=== PATIENT | male | born 1950 ===

== ENCOUNTER 2021-09-14 09:59 | Outpatient (REF) | payer MEDICARE, SELFPAY ==
[2021-09-14 10:26] LABS: MANUAL DIFF FLAG NO
[2021-09-14 10:37] LABS: Basophils Percent Auto 0.4 % (0-2); Eosinophils Absolute Auto 0.3 X10*3/uL (0.0-0.4); Eosinophils Percent Auto 3.5 % (0-4); Hematocrit 41.3 % (42.0-52.0); Hemoglobin 13.5 g/dl (14.0-18.0); Imm Gran Abs Auto 0.03 X10*3/uL (0.00-0.03); Imm Gran Pct Auto 0.3 % (0.0-0.4); Lymphocytes Percent Auto 31.8 % (20-40); Mean Corpuscular HGB Conc 32.7 g/dl (31.0-36.0); Mean Corpuscular Hemoglobin 29.5 pg (27.0-33.0); Mean Corpuscular Volume 90.2 fL (80.0-98.0); Mean Platelet Volume 9.8 fL (9.4-12.4); Monocytes Absolute Auto 0.8 X10*3/uL (0.1-1.2); Monocytes Percent Auto 8.4 % (2-11); Neutrophils Absolute Auto 5.2 x10*3/uL (2.0-8.3); Neutrophils Percent Auto 55.6 % (45-73); Platelet Count 275 X10*3/uL (160-400); Red Blood Count 4.58 X10*6/uL (4.60-5.80); White Blood Count 9.4 X10*3/uL (4.8-10.8)
[2021-09-14 11:43] LABS: Alanine Aminotransferase 21 U/L (0-40); Albumin Level 4.1 g/dL (3.5-5.0); Alkaline Phosphatase 92 U/L (39-117); Anion Gap 12 (12-20); Aspartate Amino Transferase 23 U/L (5-37); Bilirubin Total 0.4 mg/dL (0.0-1.0); Blood Urea Nitrogen 9 mg/dL (9-16); Calcium 9.5 mg/dL (8.4-10.2); Carbon Dioxide 32 mmol/L (22-29); Chloride 102 mmol/L (96-108); Estimated Glomerular Filt Rate > 60; Glucose Fasting 77 mg/dL (60-99); Potassium 3.7 mmol/L (3.3-5.1); Sodium 142 mmol/L (135-145); Total Protein 6.7 g/dL (6.5-8.0)
[2021-09-14 12:09] LABS: Prostate Specific Antigen Scr 7.21 ng/mL (<0.05-4.0)
[2021-09-19 14:22] LABS: Vitamin D 25-OH, D2 <4 ng/mL; Vitamin D 25-OH, D3 38 ng/mL; Vitamin D 25-OH, Total 38 ng/mL (30-100)
== END 2021-09-14 10:00 | disposition home or self-care (01) ==
LOC: HO.LAB 09:59
PROVIDERS: Absent Provider Internal Medicine; PCP Internal Medicine; Visit Provider Nurse Practitioner Acute Care
DX: Z12.5 Encounter for screening for malignant neoplasm of prostate (principal); N40.0 Benign prostatic hyperplasia without lower urinary tract symptoms; K21.9 Gastro-esophageal reflux disease without esophagitis; E55.9 Vitamin D deficiency, unspecified
CPT/HCPCS: 36415; 80053; 82306; 84153; 85025

== ENCOUNTER 2022-09-04 04:58 | Emergency (ER) | payer MEDICARE, SELFPAY ==
[2022-09-04] VITALS (13 sets, daily range): BP systolic 147–187; BP diastolic 80–106; PULSE 76–108; RESP 15–24; TEMP 36.6–37; O2SAT 94–98; BMI 23.1
--- NOTE | ~2022-09-04 | CT_ITS ---
EXAMINATION: NONCONTRAST HEAD CT NONCONTRAST CERVICAL SPINE CT INDICATION INFORMATION: EtOH. Multiple falls. COMPARISON: 02/29/2020 TECHNIQUE: Separate noncontrast CT examinations of the head and cervical spine were performed. Coronal and sagittal images were created for each examination at the technologist workstation. This CT examination was performed using dose optimization techniques as appropriate, variously including the following: *Automated exposure control *Adjustment of mA and/or kV according to patient size (this includes techniques or standardized protocols for targeted exams where dose is matched to indication/reason for exam; i.e. extremities or head) *Use of iterative reconstruction technique DLP: 1183 mGy-cm FINDINGS: Head: There is no evidence of acute intracranial hemorrhage or territorial infarction. No abnormal mass effect or midline shift is seen. Kumari to white matter differentiation is well preserved. No extra-axial fluid collections are identified. No hydrocephalus. Proportional prominence of the ventricles and sulcal spaces is consistent with mild volume loss. Patchy periventricular and deep white matter hypoattenuation is consistent with mild small vessel ischemic changes. No acute osseous or soft tissue abnormality. The mastoid air cells and visualized portions of the paranasal sinuses are well aerated. Cervical spine: Sclerotic appearance throughout the vertebral bodies. This is unchanged There is anatomic alignment of the vertebral bodies and posterior elements. The atlantoaxial and atlantooccipital articulations are intact. Vertebral body heights are maintained. There is multilevel intervertebral disc space narrowing with endplate osteophyte formation and facet arthropathy. No evidence of acute fracture. No prevertebral soft tissue swelling. Visualized portions of the lung apices are unremarkable. The thyroid gland is unremarkable. CT/CT cervical spine wo IV con IMPRESSION: 1. No acute intracranial finding. 2. No acute fracture or malalignment of the cervical spine. Moderate degenerative changes.
--- NOTE | 2022-09-04 05:21 | PC.NURSE ---
Pt aox3. Breaths even and unlabored. NSR on monitor. Abd soft and non tender. Skin warm, pink, and dry. No swelling or edema noted. Reports no pain at this time. VSS. Will continue to monitor.
--- NOTE | 2022-09-04 05:41 | ECG_ITS ---
Test Reason : FAIL TO THRIVE Blood Pressure : / mmHG Vent. Rate : 082 BPM Atrial Rate : 082 BPM P-R Int : 162 ms QRS Dur : 096 ms QT Int : 382 ms P-R-T Axes : 059 -06 026 degrees QTc Int : 446 ms Normal sinus rhythm ST & T wave abnormality, consider anterior ischemia Abnormal ECG When compared with ECG of 13-NOV-2019 12:26, T wave inversion now evident in Anterior leads Referred By: Addie Llamas Electronically Signed By:JUANI FISCHER MD
--- NOTE | 2022-09-04 05:46 | ED_ITS ---
HPI - General Adult General Chief complaint: Failure to Thrive Stated complaint: ETOH,Failure To Thrive Time Seen by Provider: 09/04/22 05:32 Source: patient Mode of arrival: EMS Limitations: no limitations History of Present Illness HPI narrative: Patient comes to the emergency room via EMS complaining that he has had multiple falls. Patient has significant arthritis, upper and lower extremity chronic deformities. Patient states that every time that he gets up to the bathroom, he ends up falling. Patient states that today he fell 3 times. Patient states that he did hit his head, did not lose consciousness. 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 Patient denies drinking alcohol recently, states that he drinks socially but does not abuse alcohol. Related Data Previous Rx's Medication Instructions Recorded diclofenac sodium 1 % topical gel 4 g topical QID #100 grams 08/05/21 (Voltaren Arthritis Pain) miscellaneous medical supply #1 ea 10/21/21 ([employer] misc) zolpidem 5 mg tablet 5 mg PO BEDTIME PRN sleep 30 days 07/04/22 #30 tabs duloxetine 60 mg capsule,delayed 60 mg PO DAILY 30 days #30 caps 07/11/22 release buspirone 5 mg tablet 5 mg PO TID #84 tabs 08/08/22 cholecalciferol (vitamin D3) 25 25 mcg PO DAILY 30 days #30 caps 08/08/22 mcg (1,000 unit) capsule omeprazole 20 mg capsule,delayed 20 mg PO DAILY 90 days #30 caps 08/08/22 release oxycodone 5 mg tablet 5 mg PO Q8H PRN pain 30 days #90 08/08/22 tabs sennosides 8.6 mg tablet (Senna 8.6 mg PO BEDTIME 90 days #30 tabs 08/08/22 Lax) tamsulosin 0.4 mg capsule 0.4 mg PO DAILY 30 days #30 caps 08/08/22 Allergies Allergy/AdvReac Type Severity Reaction Status Date / Time Penicillins Allergy Severe Rash Verified 10/21/21 15:20 tramadol Allergy Unknown inadequate Verified 10/21/21 15:20 response Review of Systems Review of Systems: Constitutional : No Weight loss, No Fever, No Chills, No Night Sweats, No Fatigue, No Malaise ENT/Mouth : No Hearing loss, No Ear Pain, No Nasal Congestion, No Sinus Pain, No Hoarseness, No sore throat, No Rhinorrhea, No Swallowing Difficulty Eyes: No Eye Pain, No Swelling, No Redness, No Foreign Body, No Discharge, No Vision Changes Cardiovascular : No Chest Pain, No SOB, No Dyspnea on Exertion, No Orthopnea, No Edema, No Palpitations Respiratory : No Cough, No Sputum, No Wheezing, No Smoke Exposure, No Dyspnea Gastrointestinal : No Nausea, No Vomiting, No Diarrhea, No Constipation, No abdominal Pain, No Hematochezia, No Melena Genitourinary : no irregular bleeding, No Dysuria, No Urinary Frequency, No Hematuria, No Urinary Incontinence, No Urgency, No Flank Pain, No Urinary Flow Changes, No Hesitancy Musculoskeletal : Complaining of chronic diffuse pain from rheumatoid arthritis Skin : No Skin Lesions, No rash Neuro : No Weakness, No Numbness, No Paresthesias, No Loss of Consciousness, No Dizziness, No Headache despite multiple falls Psych : No Anxiety/Panic, No Depression, No SI/HI/AH/VH, requesting more hours for PC visit or placement Heme/Lymph: No Bruising, No Bleeding,No Lymphadenopathy Endocrine : No Polyuria, No Polydipsia, No Temperature Intolerance PMFSH Past Medical History Medical History BPH (benign prostatic hyperplasia) Elevated PSA Fibromyalgia GERD (gastroesophageal reflux disease) Hypovitaminosis D Insomnia Lumbar degenerative disc disease Surgical History History of laminectomy History of prostate surgery History of shoulder surgery Family History Family History Father Diabetes Hypertension Liver cancer Mother Diabetes Hypertension Stroke Other Substance use disorder Social History Social History Housing: House Alcohol intake: current Alcohol intake frequency: a few times a week Alcohol type: beer and hard liquor Patient Tobacco Use Status: Former Tobacco user Cigarettes Per Day: 3 Smoked in Last 30 Days: Yes e-Cigarette/Vaping Use: Never Used Second Hand Smoke Exposure: No Use of substances other than those prescribed or required for medical reasons: No Advance Directives: No Advance Directives Information Provided: No service: No Current occupational status: disabled Cognitive needs: Yes (cane) Hearing needs: No Vision needs: Yes (reading glasses) Physical Exam ED Vital Signs: Vital Signs - 24 hr 09/04/22 05:07 09/04/22 05:19 09/04/22 06:14 Temperature 98.4 F 98.6 F Pulse Rate 76 104 H Respiratory Rate 20 24 H Blood Pressure 147/88 H 187/99 H Pulse Oximetry 98 98 94 Oxygen Delivery Method Room Air Room Air Room Air BMI result Body Mass Index 23.1 Const Other: Appearance: Alert. Oriented X3. No acute distress. Eyes: Pupils equal, round and reactive to light. ENT: Pharynx normal. Neck: Normal inspection. Neck supple. No lymph nodes noted. No crepitus CVS: Normal heart rate and rhythm. Pulses normal. Normal S1 and S2 Respiratory: No respiratory distress. Breath sounds normal. No Wheezing. No rales Abdomen: Soft and nontender. No rigidity. No distention. Skin: Skin warm and dry. Normal skin color. Normal skin turgor. Extremities: No lower extremity edema, patient is unable to fully extend his legs due to pain. Patient has multiple upper and lower extremities deformities especially in the distal extremities from rheumatoid arthritis Neuro: Oriented X 3. No motor deficit. No sensory deficit. Moving all extremities. No slurred speech. CN 2 through 12 grossly intact Psych: calm, cooperative, normal affect Course Course Course Narrative: All of patient's labs and imaging are pending. 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 -urinalysis is pending -ethyl alcohol level at 6 in the morning is 99 -chemistry is pending to reassess sodium and potassium at 09:00. -case management and physical therapy evaluation pending. -sign-out given to Dr. Fuller Medical Decision Making Differential Diagnosis Differential Diagnoses: The differential diagnosis associated with the presentation includes (Multiple falls, alcohol intoxication, severe arthritis, neuropathy) Admission/Observation Consideration of admission/observation: Escalation of care including admission/observation considered (Patient is waiting to be evaluated by Case Management and Physical therapy. In 2 hours, patient will need a repeat chemistry) Lab Data MDM Lab Attestation statement: I reviewed the patient's lab results. 09/04/22 06:07 09/04/22 06:07 Labs: Lab Results 09/04/22 09/04/22 09/04/22 Range/Units 06:07 06:07 06:07 WBC 7.0 (4.8-10.8) X10*3/uL RBC 4.01 L (4.60-5.80) X10*6/uL Hgb 11.4 L (14.0-18.0) g/dl Hct 35.3 L (42.0-52.0) % MCV 88.0 (80.0-98.0) fL MCH 28.4 (27.0-33.0) pg MCHC 32.3 (31.0-36.0) g/dl RDW 14.4 (11.0-16.0) % Plt Count 272 (160-400) X10*3/uL MPV 9.4 (9.4-12.4) fL Immature Gran % (Auto) 0.3 (0.0-0.4) % Neut % (Auto) 59.5 (45-73) % Lymph % (Auto) 30.3 (20-40) % Glasscock % (Auto) 6.7 (2-11) % Eos % (Auto) 2.6 (0-4) % Baso % (Auto) 0.6 (0-2) % Lymph # (Auto) 2.1 (1.2-4.9) X10*3/uL Glasscock # (Auto) 0.5 (0.1-1.2) X10*3/uL Eos # (Auto) 0.2 (0.0-0.4) X10*3/uL Baso # (Auto) 0.0 (0.0-0.2) X10*3/uL Abs Immat Gran (auto) 0.02 (0.00-0.03) X10*3/uL Absolute Neuts (auto) 4.2 (2.0-8.3) x10*3/uL Absolute Nucleated RBC 0.000 (0.0-0.012) X10*3/uL Nucleated RBC % (auto) 0.0 (0.0-0.2) /100WBC PT 9.4 L (10.0-13.1) SEC INR 0.8 L (0.9-1.1) Sodium 146 H (135-145) mmol/L Potassium 2.9 L D (3.3-5.1) mmol/L Chloride 105 (96-108) mmol/L Carbon Dioxide 31 H (22-29) mmol/L Anion Gap 13 (12-20) BUN 14 (9-16) mg/dL Creatinine 0.72 (0.5-1.4) mg/dL Estim Creat Clear Calc 81.2 Estimated GFR > 60 Random Glucose 85 (60-115) mg/dL Calcium 9.0 (8.4-10.2) mg/dL Magnesium 1.8 (1.6-2.6) mg/dL Total Bilirubin 0.2 (0.0-1.0) mg/dL Direct Bilirubin < 0.2 (0.0-0.5) mg/dL AST 48 H (5-37) U/L ALT 30 (0-40) U/L Alkaline Phosphatase 113 (39-117) U/L Troponin I High Sens (<3.5-35.0) ng/L Total Protein 6.5 (6.5-8.0) g/dL Albumin 4.0 (3.5-5.0) g/dL Ethyl Alcohol mg/dL COVID-19 ([facility]) (Negative) COVID-19 Clin Com 09/04/22 09/04/22 09/04/22 Range/Units 06:07 06:08 06:08 WBC (4.8-10.8) X10*3/uL RBC (4.60-5.80) X10*6/uL Hgb (14.0-18.0) g/dl Hct (42.0-52.0) % MCV (80.0-98.0) fL MCH (27.0-33.0) pg MCHC (31.0-36.0) g/dl RDW (11.0-16.0) % Plt Count (160-400) X10*3/uL MPV (9.4-12.4) fL Immature Gran % (Auto) (0.0-0.4) % Neut % (Auto) (45-73) % Lymph % (Auto) (20-40) % Glasscock % (Auto) (2-11) % Eos % (Auto) (0-4) % Baso % (Auto) (0-2) % Lymph # (Auto) (1.2-4.9) X10*3/uL Glasscock # (Auto) (0.1-1.2) X10*3/uL Eos # (Auto) (0.0-0.4) X10*3/uL Baso # (Auto) (0.0-0.2) X10*3/uL Abs Immat Gran (auto) (0.00-0.03) X10*3/uL Absolute Neuts (auto) (2.0-8.3) x10*3/uL Absolute Nucleated RBC (0.0-0.012) X10*3/uL Nucleated RBC % (auto) (0.0-0.2) /100WBC PT (10.0-13.1) SEC INR (0.9-1.1) Sodium (135-145) mmol/L Potassium (3.3-5.1) mmol/L Chloride (96-108) mmol/L Carbon Dioxide (22-29) mmol/L Anion Gap (12-20) BUN (9-16) mg/dL Creatinine (0.5-1.4) mg/dL Estim Creat Clear Calc Estimated GFR Random Glucose (60-115) mg/dL Calcium (8.4-10.2) mg/dL Magnesium (1.6-2.6) mg/dL Total Bilirubin (0.0-1.0) mg/dL Direct Bilirubin (0.0-0.5) mg/dL AST (5-37) U/L ALT (0-40) U/L Alkaline Phosphatase (39-117) U/L Troponin I High Sens 5.0 (<3.5-35.0) ng/L Total Protein (6.5-8.0) g/dL Albumin (3.5-5.0) g/dL Ethyl Alcohol 99 mg/dL COVID-19 ([facility]) Negative (Negative) COVID-19 Clin Com See Note Radiology Impression Radiologist Impression: FINDINGS: Head: There is no evidence of acute intracranial hemorrhage or territorial infarction. No abnormal mass effect or midline shift is seen. Kumari to white matter differentiation is well preserved. No extra-axial fluid collections are identified. No hydrocephalus. Proportional prominence of the ventricles and sulcal spaces is consistent with mild volume loss. Patchy periventricular and deep white matter hypoattenuation is consistent with mild small vessel ischemic changes. No acute osseous or soft tissue abnormality. The mastoid air cells and visualized portions of the paranasal sinuses are well aerated. Cervical spine: Sclerotic appearance throughout the vertebral bodies. This is unchanged There is anatomic alignment of the vertebral bodies and posterior elements. The atlantoaxial and atlantooccipital articulations are intact. Vertebral body heights are maintained. There is multilevel intervertebral disc space narrowing with endplate osteophyte formation and facet arthropathy. No evidence of acute fracture. No prevertebral soft tissue swelling. Visualized portions of the lung apices are unremarkable. The thyroid gland is unremarkable. CT/CT head/brain wo IV con IMPRESSION: 1.? No acute intracranial finding. 2.? No acute fracture or malalignment of the cervical spine. Moderate degenerative changes. Discharge Plan Discharge Clinical Impression: Multiple falls, Acute hypokalemia Patient Disposition: Still a Patient Prescriptions: No Action zolpidem 5 mg tablet 5 mg PO BEDTIME PRN (Reason: sleep) 30 Days Qty: 30 0RF duloxetine 60 mg capsule,delayed release(DR/EC) 60 mg PO DAILY 30 Days Qty: 30 11RF buspirone 5 mg tablet 5 mg PO TID Qty: 84 3RF tamsulosin 0.4 mg capsule 0.4 mg PO DAILY 30 Days Qty: 30 1RF sennosides [Senna Lax] 8.6 mg tablet 8.6 mg PO BEDTIME 90 Days Qty: 30 1RF cholecalciferol (vitamin D3) 25 mcg (1,000 unit) capsule 25 mcg PO DAILY 30 Days Qty: 30 1RF omeprazole 20 mg capsule,delayed release(DR/EC) 20 mg PO DAILY 90 Days Qty: 30 1RF oxycodone 5 mg tablet 5 mg PO Q8H PRN (Reason: pain) 30 Days Qty: 90 0RF (DME) [employer] Misc See Rx Instructions .Route Qty: 1 0RF Rx Instructions: Rollator walker with ambulation everyday diclofenac sodium [Voltaren Arthritis Pain] 1 % gel 4 g topical QID Qty: 100 0RF Rx Instructions: apply to single knee, ankle, foot; for foot includes sole/toes/top of foot
--- OUTSIDE RECORDS SUMMARY | 2022-09-04 05:47 | XMS_ITS ---
:1950 External Reference #:[id number] Author Care Team Providers Name Role Phone JOHANN GRACE MD Referring Provider [phone] KADE PEÑA Primary Care Provider [phone] Allergies Code Code System Name Reaction Severity Status Onset NKDA ? Medications Name Status Start Date Stop Date ? ? aspirin 81 mg tablet,delayed release Unknown ? Not available TOME AMNA TABLETA POR VIA ORAL TODOS [place] VALDEZ celecoxib 200 mg capsule Active ? Not christina ilable TAKE 1 CAPSULE(S) TWICE A DAY BY MOUTH AFTER MEALS FOR 30 DAYS. Daily-Ranulfo tablet Active ? Not available diclofenac sodium 75 mg tablet,delayed release Unknown ? Not available diphenhydramine 25 mg capsule Active ? No t available TOME AMNA CAPSULA AL ACOSTARSE CUANDO SEA NECESARIO FOR INSOMNIA duloxetine 60 mg capsule,delayed release Active ? Not available hydroxyzine HCl 25 mg tablet Active ? Not available loratadine 10 mg tablet Active ? Not avai lable nabumetone 500 mg tablet Active ? Not christina ilable omeprazole 20 mg capsule,delayed release Active ? Not available TOME AMNA CAPSULA DIARIA DESPUES DE LAS COMIDAS oxycodone 5 mg tablet Active ? Not availa ble oxycodone-acetaminophen 5 mg-325 mg tablet Unknown ? Not available TAKE 1 TABLET EVERY 24 HOURS NEEDED OxyContin 10 mg tablet,extended release Unknown ? Not available TOME AMNA TABLETA POR VIA ORAL DOS VECES AL FLORES quetiapine 100 mg tablet Active ? Not christina ilable quetiapine 25 mg tablet Unknown ? Not avai lable TAKE 1/2 TABLET POR V-A ORAL DOS VECES AL D-A tamsulosin 0.4 mg capsule Active ? Not av ailable TOME AMNA CAPSULA AL ACOSTARSE Vitamin B-1 100 mg tablet Active ? Not av ailable zolpidem 10 mg tablet Active ? Not availa ble zolpidem 5 mg tablet Unknown ? Not availab le Problems Name Status Onset Date Source ? Shoulder Joint Pain Active ? Encounter Degeneration of Cervical Intervertebral Disc Active ? History Brachial Radiculitis Active ? History Muscle Pain Active ? Encounter Procedures Date Name Performed by ? 08/20/2012 Other Information not avai lable Notes: Right shoulder surgery 08/20/1985 Back Surgery Information not avai lable ? Prostate Surgery Information not avai lable Results Lab Results None recorded. Past Encounters None recorded. Social History Tobacco Smoking Status Former Smoker Notes: Quit x 8 years Vaccine List None recorded. Plan of Care Reminders Provider Appointments None recorded. ? ? Lab None recorded. ? ? Referral None recorded. ? ? Procedures None recorded. ? ? Surgeries None recorded. ? ? Imaging None recorded. ? ? Vitals 06/10/2014 01:30PM RETURN Blood Pressure 124/83 mm[Hg] 05/14/2014 11:30AM RETURN Blood Pressure 140/86 mm[Hg] 03/05/2014 01:00PM PROCEDURE Blood Pressure 109/70 mm[Hg] 02/10/2014 11:00AM PROCEDURE Blood Pressure 130/77 mm[Hg] 02/05/2014 11:30AM RETURN Blood Pressure 127/74 mm[Hg] 11/25/2013 10:00AM NEW PATIENT VISIT Height Weight BMI Blood Pressure 5 ft 6 in 165 lbs 26.6 kg/m2 130/80 mm[Hg]
[2022-09-04 06:14] LABS: Basophils Percent Auto 0.6 % (0-2); Eosinophils Absolute Auto 0.2 X10*3/uL (0.0-0.4); Eosinophils Percent Auto 2.6 % (0-4); Hematocrit 35.3 % (42.0-52.0); Hemoglobin 11.4 g/dl (14.0-18.0); Imm Gran Abs Auto 0.02 X10*3/uL (0.00-0.03); Imm Gran Pct Auto 0.3 % (0.0-0.4); Lymphocytes Absolute Auto 2.1 X10*3/uL (1.2-4.9); Lymphocytes Percent Auto 30.3 % (20-40); MANUAL DIFF FLAG NO; Mean Corpuscular HGB Conc 32.3 g/dl (31.0-36.0); Mean Corpuscular Hemoglobin 28.4 pg (27.0-33.0); Mean Platelet Volume 9.4 fL (9.4-12.4); Monocytes Absolute Auto 0.5 X10*3/uL (0.1-1.2); Monocytes Percent Auto 6.7 % (2-11); Neutrophils Absolute Auto 4.2 x10*3/uL (2.0-8.3); Neutrophils Percent Auto 59.5 % (45-73); Platelet Count 272 X10*3/uL (160-400); Red Blood Count 4.01 X10*6/uL (4.60-5.80); Red Cell Distribution Width 14.4 % (11.0-16.0)
[2022-09-04 06:21] LABS: INTERNATIONAL NORM RATIO 0.8 (0.9-1.1); Prothrombin Time 9.4 SEC (10.0-13.1)
[2022-09-04 06:26] LABS: COVID-19 Test Negative (Negative); IDNOW Serial# BCCEAD1C
[2022-09-04 06:27] LABS: Ethanol 99 mg/dL
[2022-09-04 06:31] LABS: Alanine Aminotransferase 30 U/L (0-40); Alkaline Phosphatase 113 U/L (39-117); Anion Gap 13 (12-20); Aspartate Amino Transferase 48 U/L (5-37); Bilirubin Direct < 0.2 mg/dL (0.0-0.5); Bilirubin Total 0.2 mg/dL (0.0-1.0); Blood Urea Nitrogen 14 mg/dL (9-16); Carbon Dioxide 31 mmol/L (22-29); Chloride 105 mmol/L (96-108); Creatinine Clr Calc Pharmacy 81.2; Estimated Glomerular Filt Rate > 60; Glucose Random 85 mg/dL (60-115); Magnesium 1.8 mg/dL (1.6-2.6); Potassium 2.9 mmol/L (3.3-5.1); Sodium 146 mmol/L (135-145); Total Protein 6.5 g/dL (6.5-8.0)
[2022-09-04] MEDS: Potassium Chloride Packet 20 MEQ PACKET 40 MEQ PO (07:13)
[2022-09-04] MEDS: 0.9 % Sodium Chloride 1,000 ML 999 ML IVCONT (07:13)
--- NOTE | 2022-09-04 08:07 | PC.NURSE ---
Addendum entered by Petty Ellsworth 09/04/22 13:03: CM met with patient. IV removed pending STR placement. Addendum entered by Petty Ellsworth 09/04/22 08:59: PT eval completed at this time. Recommending STR due to leg contraction Addendum entered by Petty Ellsworth 09/04/22 08:35: PT at bedside for eval. Original Note: notified of pending home meds and HTN. Plan at this time is to await MLP to arrive to order home meds as patient remains asymptomatic.
[2022-09-04] MEDS: Tamsulosin HCL 0.4 MG CAPSULE PO (09:23)
[2022-09-04] MEDS: Cholecalciferol (Vitamin D3) 25 MCG TABLET PO (09:23)
[2022-09-04] MEDS: DULoxetine HCl 60 MG CAPSULE.DR PO (09:23)
[2022-09-04] MEDS: busPIRone HCl 5 MG TABLET PO ×3 (09:23→20:40)
[2022-09-04] MEDS: Sennosides 8.6 MG TABLET PO (09:23)
[2022-09-04 09:38] LABS: Appearance Urine Clear; Color Urine Yellow; Glucose Urine UA Negative (Negative); Leukocyte Esterase Urine Negative (Negative); Nitrite Urine Negative (Negative); PH 6.5 (5.0-9.0); Specific Gravity - Urine 1.015 (1.005-1.025); Urine Blood Negative (Negative); Urine Ketones Negative (Negative); Urine Protein Negative (Neg-Trace)
[2022-09-04 09:49] LABS: Amphetamine Screen Urine Not Detected (Not Detect); Barbiturates, Urine Not Detected (Not Detect); Benzodiazepines Screen Urine Not Detected (Not Detect); Cannabinoid Screen Urine Not Detected (Not Detect); Cocaine Screen Urine Not Detected (Not Detect); Fentanyl, urine Not Detected (Not Detect); Opiate Screen Urine Not Detected (Not Detect); Phencyclidine Screen Urine Not Detected (Not Detect)
[2022-09-04 09:51] LABS: Anion Gap 16 (12-20); Blood Urea Nitrogen 14 mg/dL (9-16); Calcium 8.6 mg/dL (8.4-10.2); Carbon Dioxide 26 mmol/L (22-29); Chloride 108 mmol/L (96-108); Creatinine Clr Calc Pharmacy 88.6; Estimated Glomerular Filt Rate > 60; Glucose Random 84 mg/dL (60-115); Potassium 3.6 mmol/L (3.3-5.1); Sodium 146 mmol/L (135-145)
--- NOTE | 2022-09-04 13:05 | MHC.CM.ED ---
Addendum entered by Aylin Segal 09/04/22 13:37: [facility] not have a bed to offer. Referral broadcasted in [facility] to all facilities that are contracted with [facility] within 20 miles of cesia's home. Original Note: Received case management consult overnight. Patient came to ER due to failure to thrive and falls. Physical therapy eval completed. Short term rehab is recommended. Met with patient and electrologist. 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 Copy of HCP verified to be on file. Patient has received 2 Pfizer vaccines. Patient has been to [facility] in the past. However, they're not contracted with [facility] at this time. Facility choices provided from [facility]. Referral made to [facility] at patient's request. Continue to monitor for d/c needs.
[2022-09-04] MEDS: oxyCODONE HCl Immed Release 5 MG TABLET PO ×2 (15:10→20:44)
--- NOTE | 2022-09-04 19:14 | PC.NURSE ---
report received from BRIDGETT bolden pt is alert and oriented resting in bed no signs of acute distress notice breathing equally unlabored denies any chest pain or sob
--- NOTE | 2022-09-05 02:57 | PC.NURSE ---
Pt sleeping at the bedside in no apparent distress. Breaths are even and unlabored with equal chest rises. Will continue to monitor.
[2022-09-05 04:00] VITALS: PULSE 83; RESP 13; O2SAT 97
[2022-09-05 05:40] VITALS: BP 175/103; PULSE 90; RESP 15; TEMP 36.9; O2SAT 97
[2022-09-05] MEDS: Omeprazole 20 MG CAPSULE.DR PO (05:44)
[2022-09-05 06:19] VITALS: BP 173/96
[2022-09-05 07:44] VITALS: BP 171/74; PULSE 86; RESP 16; TEMP 36.9; O2SAT 97
[2022-09-05] MEDS: Tamsulosin HCL 0.4 MG CAPSULE PO (08:06)
[2022-09-05] MEDS: Cholecalciferol (Vitamin D3) 25 MCG TABLET PO (08:06)
[2022-09-05] MEDS: DULoxetine HCl 60 MG CAPSULE.DR PO (08:06)
[2022-09-05] MEDS: Sennosides 8.6 MG TABLET PO (08:06)
[2022-09-05] MEDS: busPIRone HCl 5 MG TABLET PO ×3 (08:06→22:10)
[2022-09-05] MEDS: oxyCODONE HCl Immed Release 5 MG TABLET PO ×2 (08:12→14:58)
--- NOTE | 2022-09-05 08:56 | PC.NURSE ---
Pt resting comfortably in bed, call flores within reach
--- NOTE | 2022-09-05 12:45 | MHC.CM.ED ---
Addendum entered by Aylin Segal 09/05/22 12:49: Patient will require a [facility] PASRR Level 2 due to ETOH use. Level 1 already submitted. Original Note: Patient remains in ER overflow. CIWA is 0. Clinical updates sent to facilities still following patient: [facility], [facility] and [facility]. Continue to monitor for d/c needs.
--- NOTE | 2022-09-05 13:06 | PC.NURSE ---
pt's daughter(angle, hcp, ) is at bedside. daughter has concerns about pt possibility of admission. ciwa scale 1 done by this rn. pt c/o slight anxiety. pt c/o 05/29 gen body pain. shane palumbo) at bedside speaking to daughter at this time.
[2022-09-05 14:22] VITALS: BP 119/66; PULSE 87; RESP 24; TEMP 36.5; O2SAT 97
--- NOTE | 2022-09-05 14:53 | MHC.CM.ED ---
Patient currently in overflow unit. T/W met with patient's daughter, Sharon Mcnulty and patient in regards to discharge planning. Sharon is a resp therapist at [facility] 3rd shift. Sharon states she is patient's HCP. However, current HCP on file states Romana and Holly. Patient and Sharon state both have . Patient and Sharon state a new HCP was completed naming Sharon has the agency but neither know where a copy would be. Patient is active with [facility]. T/W spoke with Lata at [facility]. She will speak to patient's critical care unit manager to see if there is a HCP on file. If not, a new HCP will need to be completed. Sharon is worried about patient being discharged home. T/W explained patient is not safe to go home and physical therapy is recommending short term rehab. T/W also explained placement has been difficult to find at this time due to risk of withdrawing from alcohol. Also explained CM will contact Sharon when any facilities offer a bed. Sharon can be reached via telephone at [phone]. Continue to monitor for d/c needs.
[2022-09-05] MEDS: LORazepam 1 MG TABLET 2 MG PO (14:57)
--- NOTE | 2022-09-05 16:14 | MHC.CM.ED ---
PASRR level 2 exemption letter obtained, uploaded into [facility] and place on medical record. CIWA 1 today for mild anxiety. Will assess tomorrow. No bed offers.
[2022-09-05 22:17] VITALS: BP 123/77; PULSE 102; RESP 17; O2SAT 98
--- NOTE | 2022-09-06 04:44 | PC.NURSE ---
pt found awake with bed alarm on while pt is urinating on the floor while sitting in the bed. pt teaching to use the urinal that is at his bedside. bed alarms on. door open to pt room. pt denies pain. 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
[2022-09-06] MEDS: Omeprazole 20 MG CAPSULE.DR PO (05:59)
[2022-09-06 06:00] VITALS: BP 165/95; PULSE 85; TEMP 36.4; O2SAT 98
[2022-09-06] MEDS: DULoxetine HCl 60 MG CAPSULE.DR PO (10:06)
[2022-09-06] MEDS: oxyCODONE HCl Immed Release 5 MG TABLET PO ×2 (10:06→21:10)
[2022-09-06] MEDS: Sennosides 8.6 MG TABLET PO (10:06)
--- NOTE | 2022-09-06 10:06 | MHC.CM.ED ---
Addendum entered by Aylin Segal 09/06/22 13:22: Received telephone call from Domenica at [facility]. Copy of HCP found and faxed to T/W. HCP put in chart. Original Note: Patient remains in ER overflow. Clinincal updates sent to facilities still following patient: [facility], [place] [facility], [place] [facility] and [facility]. [facility] doesn't have a copy of a HCP on file for patient. Will need new HCP. Attempted to complete with patient. Patient currently sleeping. Will attempt to meet with patient again. Continue to monitor for d/c needs.
[2022-09-06] MEDS: busPIRone HCl 5 MG TABLET PO ×3 (10:07→21:10)
[2022-09-06] MEDS: Tamsulosin HCL 0.4 MG CAPSULE PO (10:07)
[2022-09-06] MEDS: Cholecalciferol (Vitamin D3) 25 MCG TABLET PO (10:07)
--- NOTE | 2022-09-06 14:53 | PC.NURSE ---
patient is romanian speaking, able to make needs known. using urinal at the bedside, incontinent at times. skin intact. bed alarm in place for safety. educated to stay in bed, don't get up without assistance. verbalized understanding. call flores within reach
[2022-09-06 15:00] VITALS: BP 178/88; PULSE 101; RESP 16; TEMP 36.4; O2SAT 95
--- NOTE | 2022-09-06 19:35 | PC.NURSE ---
report received from Princess RN - patient resting comfortably on stretcher. daughter at bedside. will continue to monitor
[2022-09-06 21:14] VITALS: BP 186/95; PULSE 104; RESP 19; TEMP 36.9; O2SAT 96
[2022-09-06 21:46] VITALS: BP 130/92; PULSE 89; RESP 16
--- NOTE | 2022-09-06 22:16 | MHC.EDTECH ---
bed linen was changed he spilled his shake, vitals were taken and he wanted kevin pants to put on , so i assisted him he sat himself up and lifts himself slightly for me to pull them up. he is back in bed, his urinal was also emptied 150cc
[2022-09-07] VITALS (8 sets, daily range): BP systolic 134–191; BP diastolic 82–101; PULSE 83–93; RESP 16–20; TEMP 36.1–36.8; O2SAT 96–98
[2022-09-07] MEDS: Ibuprofen 600 MG TABLET PO ×3 (04:24→18:25)
[2022-09-07] MEDS: oxyCODONE HCl Immed Release 5 MG TABLET PO ×3 (04:24→21:06)
--- NOTE | 2022-09-07 04:27 | PC.NURSE ---
patient reporting 10/10 pain to extremities d/t chronic arthritis. patient unable to move extremities well, very contracted and stiff. MD notified. oxycodone and ibuprofen given per provider orders - will continue to monitor closely
[2022-09-07] MEDS: Omeprazole 20 MG CAPSULE.DR PO (06:16)
--- NOTE | 2022-09-07 06:39 | PC.NURSE ---
patient still in 8/10 pain despite oxycodone and ibuprofen administration. joints & extremities tight with limited range of motion. blood pressure continues to be elevated, patient not on any home bp meds and has no history of HTN. HTN likely secondary to pain. provider made aware. provider ordering ibuprofen and ativan prn (along with oxycodone prn) q6 hours as needed for pain, anxiety, high bp's
[2022-09-07] MEDS: Cholecalciferol (Vitamin D3) 25 MCG TABLET PO (08:09)
[2022-09-07] MEDS: busPIRone HCl 5 MG TABLET PO ×3 (08:09→21:06)
[2022-09-07] MEDS: Tamsulosin HCL 0.4 MG CAPSULE PO (08:09)
[2022-09-07] MEDS: Sennosides 8.6 MG TABLET PO (08:09)
[2022-09-07] MEDS: DULoxetine HCl 60 MG CAPSULE.DR PO (08:09)
[2022-09-07] MEDS: LORazepam 1 MG TABLET 2 MG PO ×2 (08:10→18:26)
--- NOTE | 2022-09-07 08:46 | MHC.CM.ED ---
Patient remains in ER. Left message for patient's daughter/HCP, Sharon via telephone at [phone] explaining placement hasn't been found at this time. T/W spoke with peter Lovettison of [facility] will review to see if they can accept patient. Continue to monitor for d/c needs.
[2022-09-08 05:18] VITALS: BP 182/92; PULSE 84; RESP 16; TEMP 36.9; O2SAT 96
--- NOTE | 2022-09-08 05:21 | MHC.EDTECH ---
PT given bedbath. Pt had large bm on himself. Pt reminded to ring call flores if he feels he needs to go. Pt bed linen changed. Pt hospital pants and gown changed. Pt urinal emptied at 500 cc Pt resting quietly call flores placed in reach.
[2022-09-08] MEDS: Ibuprofen 600 MG TABLET PO ×2 (06:13→11:44)
[2022-09-08] MEDS: LORazepam 1 MG TABLET 2 MG PO (06:13)
[2022-09-08] MEDS: Omeprazole 20 MG CAPSULE.DR PO (06:13)
--- NOTE | 2022-09-08 07:04 | PC.NURSE ---
Patient resting comfortably no distres noted. AOx 4 neuros intact SHELBY with purpose. No SOB or distress apparent will CTM
[2022-09-08] MEDS: oxyCODONE HCl Immed Release 5 MG TABLET PO (07:10)
[2022-09-08 07:43] VITALS: BP 177/90; PULSE 97; RESP 16; TEMP 36.9; O2SAT 96
[2022-09-08] MEDS: Sennosides 8.6 MG TABLET PO (08:04)
[2022-09-08] MEDS: busPIRone HCl 5 MG TABLET PO (08:04)
[2022-09-08] MEDS: DULoxetine HCl 60 MG CAPSULE.DR PO (08:04)
[2022-09-08] MEDS: Tamsulosin HCL 0.4 MG CAPSULE PO (08:04)
[2022-09-08] MEDS: Cholecalciferol (Vitamin D3) 25 MCG TABLET PO (08:04)
--- NOTE | 2022-09-08 10:01 | PC.NURSE ---
Patient kneeling on side of bed has bleeding to right knee able to stand with assistance
[2022-09-08 10:31] VITALS: BP 154/70; PULSE 85; RESP 18; TEMP 36.6; O2SAT 98
[2022-09-08 11:23] LABS: COVID-19 Test Negative (Negative); IDNOW Serial# BCCEAD1C
--- NOTE | 2022-09-08 11:48 | MHC.CM.ED ---
[facility] is able to offer patient a bed. Patient can leave at 1pm. Asad AYALA booked. Med [facility] with chart. Patient, daughter Obed Herrera RN and Keesha BLANCHARD aware. Continue to monitor for d/c needs.
--- NOTE | 2022-09-08 12:01 | PC.NURSE ---
Report called to [facility].
--- NOTE | 2022-09-08 12:44 | PC.NURSE ---
Report to EMS patient being transferred to [facility]
== END 2022-09-08 13:04 | disposition skilled nursing facility (03) ==
PROVIDERS: Physician Assistant; Emergency Provider Emergency Medicine; PCP Internal Medicine
DX: R29.6 Repeated falls (principal); Z91.81 History of falling; E87.6 Hypokalemia; Z20.822 Contact with and (suspected) exposure to COVID-19; F32.1 Major depressive disorder, single episode, moderate; F41.9 Anxiety disorder, unspecified; G47.00 Insomnia, unspecified; N40.0 Benign prostatic hyperplasia without lower urinary tract symptoms; M79.7 Fibromyalgia; K21.9 Gastro-esophageal reflux disease without esophagitis; M51.36 Other intervertebral disc degeneration, lumbar region; Z87.891 Personal history of nicotine dependence; Z79.899 Other long term (current) drug therapy
CPT/HCPCS: 36415; 70450; 72125; 80048; 80076; 80307; 81003; 82077; 83735; 84484; 85025; 85610; 87635; 93005; 96360; 97162; 97530; 99285

== ENCOUNTER → 2022-09-14 13:47 | Outpatient (BNVA) | payer MEDICARE, SELFPAY | PROVIDERS: PCP Internal Medicine; Visit Provider Urology | DX: N40.0 Benign prostatic hyperplasia without lower urinary tract symptoms (principal); R97.20 Elevated prostate specific antigen [PSA] | CPT/HCPCS: 51798; 99202 ==

== ENCOUNTER → 2022-11-30 10:43 | Outpatient (BNVA) | payer MEDICARE, SELFPAY | PROVIDERS: PCP Emergency Medicine; Visit Provider Surgery Vascular Surgery | DX: I73.9 Peripheral vascular disease, unspecified (principal) | CPT/HCPCS: 99212 ==

== ENCOUNTER → 2022-12-25 09:58 | Outpatient (BNVA) | payer MEDICARE, SELFPAY | PROVIDERS: PCP Emergency Medicine; Visit Provider Internal Medicine | DX: M48.061 Spinal stenosis, lumbar region without neurogenic claudication (principal); M48.02 Spinal stenosis, cervical region; M19.90 Unspecified osteoarthritis, unspecified site; M79.7 Fibromyalgia | CPT/HCPCS: 99202 ==

== ENCOUNTER 2022-12-27 09:44 | Outpatient (REF) | payer MEDICARE, SELFPAY ==
--- NOTE | ~2022-12-27 | US_ITS ---
EXAMINATION: NONINVASIVE ASSESSMENT OF THE ARTERIES OF BOTH LOWER EXTREMITIES WITH PVR EXAM AND BILATERAL LOWER EXTREMITY DUPLEX Jessy Callaway MD CLINICAL INFORMATION: Peripheral vascular disease TECHNIQUE: Ankle pulse volume recordings, ankle pressure measurements and ankle brachial indices were obtained of the lower extremity arterial system bilaterally in addition to duplex Doppler techniques with wave form analysis and measurement of velocities in the common femoral, profunda femoral, superficial femoral, popliteal and tibial arteries. The study was performed only at rest. COMPARISON: None FINDINGS: a) AT REST: RIGHT LE. The right ankle-brachial index is: 1.03 * >0.97-1.25 = normal - no significant arterial disease * 0.75-0.96 = mild peripheral arterial disease * 0.5-0.74 = moderate peripheral arterial disease * <0.50 = severe peripheral arterial disease 2. Right ankle pressure: normal. 3. Right ankle PVR waveform: Abnormal 4. Right direct duplex Doppler findings: Common femoral artery: 167 cm/s, Multiphasic Profunda femoris artery: 114 cm/s, Multiphasic Superficial femoral artery (proximal): 124 cm/s, Multiphasic Superficial femoral artery (mid): 163 cm/s, Multiphasic Superficial femoral artery (distal): 191 cm/s, Multiphasic Proximal Popliteal artery: 126 cm/s, Multiphasic Mid posterior tibial artery: 134 cm/s, Multiphasic LEFT LE. The left ankle-brachial index is: 0.97 * >0.97-1.25 = normal - no significant arterial disease * 0.75-0.96 = mild peripheral arterial disease * 0.5-0.74 = moderate peripheral arterial disease * <0.50 = severe peripheral arterial disease 2. Left ankle pressure: normal. 3. Left ankle PVR waveform: Abnormal 4. Left direct duplex Doppler findings: Common femoral artery: 154 cm/s, Multiphasic Profunda femoris artery: 115 cm/s, Multiphasic Superficial femoral artery (proximal): 159 cm/s, Multiphasic Superficial femoral artery (mid): 160 cm/s, Multiphasic Superficial femoral artery (distal): 91 cm/s, Multiphasic Proximal Popliteal artery: 71 cm/s, Multiphasic Mid posterior tibial artery: 97 cm/s, Multiphasic There is a prominent lymph node in the left inguinal region measuring 2.5 cm. US/US arterial duplex LE BI IMPRESSION: 1. No evidence of hemodynamically significant lower extremity arterial disease. 2. Prominent lymph node in the left inguinal region measuring 2.5 cm.
--- NOTE | ~2022-12-27 | US_ITS ---
EXAMINATION: NONINVASIVE ASSESSMENT OF THE ARTERIES OF BOTH LOWER EXTREMITIES WITH PVR EXAM AND BILATERAL LOWER EXTREMITY DUPLEX Jessy Callaway MD CLINICAL INFORMATION: Peripheral vascular disease TECHNIQUE: Ankle pulse volume recordings, ankle pressure measurements and ankle brachial indices were obtained of the lower extremity arterial system bilaterally in addition to duplex Doppler techniques with wave form analysis and measurement of velocities in the common femoral, profunda femoral, superficial femoral, popliteal and tibial arteries. The study was performed only at rest. COMPARISON: None FINDINGS: a) AT REST: RIGHT LE. The right ankle-brachial index is: 1.03 * >0.97-1.25 = normal - no significant arterial disease * 0.75-0.96 = mild peripheral arterial disease * 0.5-0.74 = moderate peripheral arterial disease * <0.50 = severe peripheral arterial disease 2. Right ankle pressure: normal. 3. Right ankle PVR waveform: Abnormal 4. Right direct duplex Doppler findings: Common femoral artery: 167 cm/s, Multiphasic Profunda femoris artery: 114 cm/s, Multiphasic Superficial femoral artery (proximal): 124 cm/s, Multiphasic Superficial femoral artery (mid): 163 cm/s, Multiphasic Superficial femoral artery (distal): 191 cm/s, Multiphasic Proximal Popliteal artery: 126 cm/s, Multiphasic Mid posterior tibial artery: 134 cm/s, Multiphasic LEFT LE. The left ankle-brachial index is: 0.97 * >0.97-1.25 = normal - no significant arterial disease * 0.75-0.96 = mild peripheral arterial disease * 0.5-0.74 = moderate peripheral arterial disease * <0.50 = severe peripheral arterial disease 2. Left ankle pressure: normal. 3. Left ankle PVR waveform: Abnormal 4. Left direct duplex Doppler findings: Common femoral artery: 154 cm/s, Multiphasic Profunda femoris artery: 115 cm/s, Multiphasic Superficial femoral artery (proximal): 159 cm/s, Multiphasic Superficial femoral artery (mid): 160 cm/s, Multiphasic Superficial femoral artery (distal): 91 cm/s, Multiphasic Proximal Popliteal artery: 71 cm/s, Multiphasic Mid posterior tibial artery: 97 cm/s, Multiphasic There is a prominent lymph node in the left inguinal region measuring 2.5 cm. US/US LEIDY complete IMPRESSION: 1. No evidence of hemodynamically significant lower extremity arterial disease. 2. Prominent lymph node in the left inguinal region measuring 2.5 cm.
== END 2022-12-27 09:45 | disposition home or self-care (01) ==
LOC: HO.US 09:44
PROVIDERS: Visit Provider Surgery Vascular Surgery
DX: I73.9 Peripheral vascular disease, unspecified (principal)
CPT/HCPCS: 93923; 93925

== ENCOUNTER → 2023-01-17 10:15 | Outpatient (BNVA) | payer MEDICARE, SELFPAY | PROVIDERS: PCP Emergency Medicine; Visit Provider Nurse Practitioner Family | DX: R97.20 Elevated prostate specific antigen [PSA] (principal); N40.0 Benign prostatic hyperplasia without lower urinary tract symptoms; Z79.899 Other long term (current) drug therapy | CPT/HCPCS: 51798; 99212 ==

== ENCOUNTER → 2023-01-18 12:59 | Outpatient (BNVA) | payer MEDICARE, SELFPAY | PROVIDERS: PCP Internal Medicine; Visit Provider Surgery Vascular Surgery | DX: M79.606 Pain in leg, unspecified (principal) | CPT/HCPCS: 99212 ==

== ENCOUNTER → 2023-01-19 09:27 | Outpatient (BNVA) | payer MEDICARE, SELFPAY | PROVIDERS: PCP Internal Medicine; Visit Provider Internal Medicine | DX: M79.606 Pain in leg, unspecified (principal) | CPT/HCPCS: 99212 ==

== ENCOUNTER 2023-02-19 10:20 | Outpatient (REF) | payer MEDICARE, SELFPAY | END 2023-02-19 10:21 | disposition home or self-care (01) | LOC: HO.US 10:20 | PROVIDERS: PCP Internal Medicine; Visit Provider Nurse Practitioner Family | DX: R97.20 Elevated prostate specific antigen [PSA] (principal); N40.0 Benign prostatic hyperplasia without lower urinary tract symptoms | CPT/HCPCS: 76770 ==

== ENCOUNTER 2023-02-28 10:18 | Outpatient (AMB) | payer MEDICARE, SELFPAY ==
--- NOTE | 2023-02-28 10:59 | A.OFFVIS_ITS ---
Intake Intake Visit Reasons: 6w/US/labs Intake Note: Patient is present for follow up PSA/BPH/ultrasound/labs (imaging 02/19) (psa 5.5) Urology Medications: terazosin, finasteride Blood Thinner: none PVR: 11ml's Digital Marketing Program Manager Required: Yes Digital Marketing Program Manager Name: NATHALIE Accompanied by: caregiver Allergies Penicillins Allergy (Severe, Verified 02/28/23 11:08) Rash tramadol Allergy (Unknown, Verified 02/28/23 11:08) inadequate response HPI HPI Comments History of Present Illness Details Jose is a pleasant 72 year old Ecuadorean-speaking male patient Dr. Mendez who was accompanied by one of the CNAs at [facility] where the patient resides. He has a PMH of GERD, BPH and polyarthralgias secondary to fibromyalgia. He presents to the office today for a follow up of his elevated PSA and lower urinary tract symptoms. Of note, patient was seen approximately 6 weeks ago at which time a PSA a retroperitoneal ultrasound was ordered. These results were reviewed with the patient today. Bilateral kidneys with no calculi, lesions, and or hydronephrosis noted. The bladder is partially distended. There is notable focal thickening along the posterior wall of the bladder. The prostate gland is enlarged measuring approximately 55 mL. PSAs are as follows.... 09/11--7.2 01/09--6.1 03/11--5.5 It appears although PSA total and free was ordered only PSA was obtain. When asked patient reports significant improvement in urinary symptoms on 5 mg of terazosin daily. In review of medication administration record that was sent with the patient today from [facility] it does not appear finasteride is on this list. Call to [facility] at [phone] in attempt to speak with patient's nurse however no answer. On third attempt spoke to Svetlana she is aware of plan of care.In discussion with Svetlana today does not appear patient has been on finasteride she reports medication was discontinued when patient was switched from Flomax to terazosin. Discussed difference between terazosin and finasteride. Verbal order given for finasteride 5 mg daily. Patient reports approximately 3 days ago noting to have very small spots of blood on his underwear. Upon further investigation of [facility] staff it appears patient with two small open ulcerated areas to the base of the penis between the penis and scrotum area. Another ulcerated area to the tip of the patient's penis near uncircumcised foreskin. He discusses staff have obtain culture of these areas and culture remains pending. In discussion with Svetlana today culture negative. Facility staff member accompanied by patient reports patient to have had further STD workup. However, patient believes incident happened while using a urinal. He believes he pinched the top of his penis while attempting to close urinal. He otherwise offers no issues or concerns at this time. When asked he denies urinary urgency, urinary frequency, incontinence, nocturia, hematuria, dysuria, foul smelling urine, changes to urinary stream, flank pain, fever, and or chills. Discussed at length potential causes for elevated PSA. Discussed risks and benefits of surveillance monitoring versus prostate biopsy. Patient otherwise denies any issues or concerns at this time. Unable to obtain urine for urinalysis as patient was unable to urinate however PVR 11 mLs. Svetlana called [phone] [facility] Medical History BPH (benign prostatic hyperplasia) Elevated PSA Fibromyalgia GERD (gastroesophageal reflux disease) Hypovitaminosis D Insomnia Lumbar degenerative disc disease Surgical History History of laminectomy History of prostate surgery History of shoulder surgery Family History Father Diabetes Hypertension Liver cancer Mother Diabetes Hypertension Stroke Other Substance use disorder Social History Housing: House Alcohol intake: current Alcohol intake frequency: a few times a week Alcohol ty pe: beer and hard liquor Patient Tobacco Use Status: Former Tobacco user Cigarettes Per Day: 3 e-Cigarette/Vaping Use: Never Used Second Hand Smoke Exposure: No Advance Directives Date on File: 09/06/22 service: No Current occupational status: disabled Cognitive needs: Yes (cane) Hearing needs: No Vision needs: Yes (reading glasses) Review of Systems Const Reports as per HPI Eyes Reports no additional complaints ENT Reports no additional complaints Card Reports no additional complaints Resp Reports no additional complaints GI Reports as per HPI Reports as per HPI Musc Reports no additional complaints Neuro Reports as per HPI Psych Reports no additional complaints Endo Reports no additional complaints Seven/Lymph Reports no additional complaints Physical Exam Const General: cooperative, comfortable, no acute distress, well developed, alert and awake Orientation/consciousness: patient oriented x3 Limitations: wheelchair HEENT Head: Yes normal to inspection, Yes normocephalic and Yes atraumatic Ears: hearing grossly normal bilaterally Eyes General: appearance normal, both eyes and all related structures Neck Neck: Yes normal visual inspection and Yes trachea midline Chest Chest palpation & inspection: normal inspection of the chest Resp Effort & Inspection: normal respiratory effort and able to speak in complete sentences Cardio Rate: regular rate GI Inspection: Yes normal to inspection General: Yes no CVA tenderness Penis: normal penis, uncircumcised and ulceration (dime sized ulceration area to the foreskin of the penis near the head) Meatus: meatus normal Scrotum: scrotum normal and ulceration (very small ulcerated area near the posterior aspect ofthe base of the penis) Testes: Testes normal Back/Spine/Pelvis Back: no CVA tenderness Skin General skin exam: no rashes or lesions noted Neuro General: patient oriented x3 Extrem General: Yes normal to inspection Psych Appearance: grossly normal and well kempt Mental Status: mental status grossly normal Speech and movement: Normal speech and movement present and Clear speech present Affect: normal affect Attitude: cooperative Thought process: Normal thought process present Thought content: Normal thought content present Insight: Fair insight present (Psych) Judgement: Fair judgement present (Psych) Office Procedures Post Void Residual Post Residual Void Post Void Residual (PVR): 11 [id number] Void Residual by ultrasound Results Reviewed Results Reviewed: Date of Service: 02/19/23 EXAMINATION: US RETROPERITONEAL COMPLETE (RENAL) FINDINGS: RIGHT KIDNEY: 10.0 x 5.2 x 5.5 cm (SAG x AP x TRV). The kidney is normal in size, contour, and echogenicity. Renal cortical thickness is normal. No calculi or focal parenchymal lesions. No hydronephrosis. LEFT KIDNEY: 10.5 x 6.1 x 5.0 cm (SAG x AP x TRV). The kidney is normal in size, contour, and echogenicity. Renal cortical thickness is normal. No calculi or focal parenchymal lesions. No hydronephrosis. BLADDER: Partially distended. Bilateral ureteral jets are demonstrated. Prevoid bladder volume is 104 mL. Postvoid bladder volume is 136 mL. There is notable focal thickening along the posterior wall of the bladder. The prostate is enlarged measuring 55.4 mL. IMPRESSION: 1.? Normal appearance of the kidneys. 2.? Large post void residual. 3.? Focal thickening along the posterior wall of the bladder. 4.? Enlarged prostate. Assessment & Plan Assessment & Plan (1) Elevated PSA: Code(s): R97.20 - Elevated prostate specific antigen [PSA] (2) Renal cyst: Code(s): N28.1 - Cyst of kidney, acquired (3) Enlarged prostate with lower urinary tract symptoms (LUTS): Code(s): N40.1 - Benign prostatic hyperplasia with lower urinary tract symptoms Plan: Unable to obtain urine for urinalysis as patient unable to void however PVR 11 mL. Recent PSA results reviewed with the patient today; as noted above. Recent retroperitoneal ultrasound results reviewed with the patient today; as noted above. Call today [facility] to review plan of care spoke with Svetlana Patient will continue finasteride and terazosin as discussed and prescribed. Continue to apply very thin layer of antibiotic ointment on two ulcerated areas. Patient reports significant improvement in urinary symptoms on terazosin and is happy with current voiding parameters. PSA total and free in 4 months. Follow-up in 4 months with imaging to be completed prior; or sooner with any issues, concerns, and or questions. Orders: Orders PSA,Total (Free>4and<10) 4 Months R97.20 - Elevated prostate specific antigen [PSA] AMB Post Void Residual by ultrasound 02/28/23 N40.0 - Benign prostatic hyperplasia without lower urinary tract symptoms Medications: New finasteride 5 mg PO DAILY 90 tabs 1RF 90 days N13.8 - Other obstructive and reflux uropathy, N40.1 - Benign prostatic hyperplasia with lower urinary tract symptoms, R33.9 - Retention of urine, unspecified Patient Instructions: The patient had an opportunity to ask questions regarding the treatment plan. All questions were answered. Physical exam, labs, and imaging were discussed and reviewed in detail. As well as risks, benefits, and discussion of treatment choices. No major barriers to understanding were identified. The patient expressed understanding and agreement with the above treatment plan. The patient was made aware they should contact our office by phone for worsening of their current condition, the appearance of new symptoms, or with any questions or concerns. Compliance is encouraged with any medications and follow up testing that is ordered. It is a privilege to be allowed the opportunity to participate in? your urological care.? Again, if you have any questions or concerns If you have any questions or concerns please do not hesitate to contact me. The office is [phone]. This note is constructed using voice recognition software. While every effort has been made to ensure accuracy photoresist printer errors may have been included. Yours sincerely, NEW Mckeon Coding Level of Care Code Est Pt Level 4 (85428) Diagnoses Elevated PSA R97.20 Renal cyst N28.1 Enlarged prostate with lower urinary tract symptoms (LUTS) N40.1 CPT Codes Post Residual Void - PVR CPT Code: 45571-[id number] Void Residual by ultrasound ([id number]) Time Spent (min) 40
== END 2023-02-28 11:53 | disposition home or self-care (01) ==
PROVIDERS: Visit Provider Nurse Practitioner Family
DX: R97.20 Elevated prostate specific antigen [PSA] (principal); N28.1 Cyst of kidney, acquired; N40.1 Benign prostatic hyperplasia with lower urinary tract symptoms
CPT/HCPCS: 99214

== ENCOUNTER → 2023-02-28 10:18 | Outpatient (BNVA) | payer MEDICARE, SELFPAY | PROVIDERS: Visit Provider Nurse Practitioner Family | DX: R97.20 Elevated prostate specific antigen [PSA] (principal); N28.1 Cyst of kidney, acquired; N40.1 Benign prostatic hyperplasia with lower urinary tract symptoms | CPT/HCPCS: 51798; 99212 ==

== ENCOUNTER 2023-04-04 10:46 | Outpatient (REF) | payer MEDICARE, SELFPAY | END 2023-04-04 10:47 | disposition home or self-care (01) | LOC: HO.MRI 10:46 | PROVIDERS: PCP Internal Medicine; Visit Provider Internal Medicine | DX: Z13.89 Encounter for screening for other disorder (principal) ==

== ENCOUNTER 2023-06-11 08:40 | Outpatient (AMB) | payer MEDICARE, SELFPAY ==
--- NOTE | 2023-06-11 08:44 | A.OFFVIS_ITS ---
Intake Vital Signs 06/11/23 08:46 Height 5 ft 6 in Weight 160 lb BMI 25.8 BP 80/51 L Blood Pressure Location Rt brachial Position Sitting Respiration 14 Pulse Source Pulse Oximeter Intake Visit Reasons: Chronic Pain Director Of Design Required: Yes Director Of Design Name: Molly #[id number] Allergies Penicillins Allergy (Severe, Verified 06/11/23 08:47) Rash tramadol Allergy (Unknown, Verified 06/11/23 08:47) inadequate response Medication List - Last Reconciled 06/11/23 by Lata Zelaya LPN amlodipine 5 mg PO DAILY buspirone 1 tab PO TID cholecalciferol (vitamin D3) (Vitamin D3) 25 mcg PO DAILY 90 days diclofenac sodium 1% 1 ea topical QID duloxetine 1 cap PO DAILY finasteride 5 mg PO DAILY 90 days folic acid 1 mg PO DAILY geriatric [id number] 1 tab PO DAILY omeprazole 20 mg PO DAILY 90 days sennosides (senna) 8.6 mg PO DAILY 90 days terazosin 8 mg PO DAILY thiamine HCl (vitamin B1) 50 mg PO DAILY zolpidem 1 tab PO BEDTIME PRN HPI Chronic Pain HPI Details 72-year-old male who presents today to t he office for an evaluation of chronic pain. A certified acid changer was present during the visit. He reports pain in multiple joints of the body associated with contractures that is reported in his hands, shoulders, lower back, hips, and knees. He has a history of fibromyalgia. He takes oxycodone 5 mg T.I.D. without any relief. He has difficulty sleeping due to pain. He has not seen physiatry yet. He states that his MRI scan is still pending as he was unable to extend his legs during the exam. [facility] Medical History BPH (benign prostatic hyperplasia) Elevated PSA Fibromyalgia GERD (gastroesophageal reflux disease) Hypovitaminosis D Insomnia Lumbar degenerative disc disease Surgical History History of laminectomy History of prostate surgery History of shoulder surgery Family History Father Diabetes Hypertension Liver cancer Mother Diabetes Hypertension Stroke Other Substance use disorder Social History Housing: House Alcohol intake: current Alcohol intake frequency: a few times a week Alcohol type: beer and hard liquor Patient Tobacco Use Status: Former Tobacco user Cigarettes Per Day: 3 e-Cigarette/Vaping Use: Never Used Second Hand Smoke Exposure: No Advance Directives Date on File: 09/06/22 service: No Current occupational status: disabled Cognitive needs: Yes (cane) Hearing needs: No Vision needs: Yes (reading glasses) Review of Systems Const All systems reviewed & are unremarkable except as noted in HPI and below Physical Exam Vital Signs: Last Vital Signs Resp 14 06/11/23 08:46 BP 80/51 L 06/11/23 08:46 BMI result Body Mass Index 25.8 General: Appears afebrile. Alert and oriented. Mood and affect appropriate. Follows and participates in conversation appropriately. Respiratory effort is unlabored. Sitting comfortably in wheelchair. Able to extend his fingers, more than he was on his initial visit. Results Reviewed Results Reviewed: No imaging is available for review. Assessment & Plan Assessment & Plan (1) Severe flexion contractures of all joints: Code(s): M24.50 - Contracture, unspecified joint (2) Lumbar spinal stenosis: Code(s): M48.061 - Spinal stenosis, lumbar region without neurogenic claudication (3) Cervical spinal stenosis: Code(s): M48.02 - Spinal stenosis, cervical region Plan I ordered a MR imaging of his cervical and lumbar spine under sedation so that he can complete the examination to rule out spinal stenosis as the cause of his muscle contractures secondary to upper motor neuron compression. The patient will follow up to review the result. I also encouraged him to have a consultation with physiatry to look into potential options available for his contracture treatment. He has not been responsive to baclofen orally. I would like him to have a consultation to see if Botox or phenol injections might be helpful. For his chronic pain, with continuing a combination of neuropathic medications including gabapentin and duloxetine. He has not been finding oxycodone very helpful so another medication to consider would be Belbuca starting at 150 mcg b.i.d. with slow uptitration. Since we are not enrolling new patients in our medical management program, I will defer this to his primary care provider. Scribed for Dr. Hedrick by Henok Isabel, medical officer, on 06/11/2023. I, Dr. Hedrick, have personally reviewed and agree with the information entered by the scribe. Coding Level of Care Code Est Pt Level 4 (31267) Diagnoses Severe flexion contractures of all joints M24.50 Lumbar spinal stenosis M48.061 Cervical spinal stenosis M48.02
[2023-06-11 08:46] VITALS: BP 80/51; RESP 14; BMI 25.8
== END 2023-06-11 09:22 | disposition home or self-care (01) ==
PROVIDERS: PCP Internal Medicine; Visit Provider Internal Medicine
DX: M24.50 Contracture, unspecified joint (principal); M48.061 Spinal stenosis, lumbar region without neurogenic claudication; M48.02 Spinal stenosis, cervical region
CPT/HCPCS: 99214

== ENCOUNTER → 2023-06-11 08:40 | Outpatient (BNVA) | payer MEDICARE, SELFPAY | PROVIDERS: PCP Internal Medicine; Visit Provider Internal Medicine | DX: M24.50 Contracture, unspecified joint (principal); M48.061 Spinal stenosis, lumbar region without neurogenic claudication; M48.02 Spinal stenosis, cervical region | CPT/HCPCS: 99212 ==

== ENCOUNTER 2023-06-27 09:30 | Outpatient (AMB) | payer MEDICARE, SELFPAY ==
--- NOTE | 2023-06-27 09:45 | MHC.OFFVIS ---
Intake Intake Visit Reasons: 4m/PVR/labs(set) Intake Note: Patient is present for follow up PSA/BPH/labs (psa 3.7) Urology Medications: terazosin, finasteride Blood Thinner: none PVR: 0ml's Quality Nurse Required: Yes Accompanied by: caregiver Allergies Penicillins Allergy (Severe, Verified 06/27/23 09:49) Rash tramadol Allergy (Unknown, Verified 06/27/23 09:49) inadequate response HPI HPI Comments History of Present Illness Details Jose is a pleasant 72 year old Cymro-speaking male patient Dr. Mendez who was accompanied by one of the CNAs at [facility] where the patient resides. He has a PMH of GERD, BPH and polyarthralgias secondary to fibromyalgia. He presents to the office today for a follow up of his elevated PSA and lower urinary tract symptoms. Recent PSA results reviewed with the patient today as noted below. Previous workup has included a retroperitoneal ultrasound noting bilateral kidneys with no calculi, lesions, and or hydronephrosis noted. The bladder is partially distended. There is notable focal thickening along the posterior wall of the bladder. The prostate gland is enlarged measuring approximately 55 mL. PSAs are as follows.... 09/11--7.2 01/09--6.1 03/11--5.5 06/11--3.7 PSA free 19% In review of patient's MAR it appears patient is compliant with terazosin 8 mg at bedtime and finasteride 5 mg daily. Patient currently denies any bothersome urinary issues or concerns at this time. Unable to obtain urine for urinalysis however PVR 0 mL. Patient discusses at length his arthritis and arthritic/fibromyalgia pain he experiences to his extremities. When asked patient denies urinary urgency, urinary frequency, incontinence, nocturia, hematuria, dysuria, foul smelling urine, changes to urinary stream, flank pain, fever, and or chills. Patient otherwise denies any issues or concerns at this time. [facility] Medical History (Updated 06/27/23 @ 19:39 by YOLA Mckeon) Elevated PSA Insomnia Fibromyalgia GERD (gastroesophageal reflux disease) Hypovitaminosis D Lumbar degenerative disc disease Surgical History History of prostate surgery History of shoulder surgery History of laminectomy Family History Father Diabetes Hypertension Liver cancer Mother Diabetes Hypertension Stroke Other Substance use disorder Social History Housing: House Alcohol intake: current Alcohol intake frequency: a few times a week Alcohol type: beer and hard liquor Patient Tobacco Use Status: Former Tobacco user Cigarettes Per Day: 3 e-Cigarette/Vaping Use: Never Used Second Hand Smoke Exposure: No Advance Directives Date on File: 09/06/22 service: No Current occupational status: disabled Cognitive needs: Yes (cane) Hearing needs: No Vision needs: Yes (reading glasses) Review of Systems Const Reports as per HPI Eyes Reports no additional complaints ENT Reports no additional complaints Card Reports no additional complaints Resp Reports no additional complaints GI Reports as per HPI Reports as per HPI Musc Reports as per HPI Neuro Reports as per HPI Psych Reports no additional complaints Endo Reports no additional complaints Seven/Lymph Reports no additional complaints Physical Exam Const General: cooperative, comfortable, no acute distress, well developed, alert and awake Orientation/consciousness: patient oriented x3 Limitations: wheelchair HEENT Head: Yes normal to inspection, Yes normocephalic and Yes atraumatic Ears: hearing grossly normal bilaterally Eyes General: appearance normal, both eyes and all related structures Neck Neck: Yes normal visual inspection and Yes trachea midline Chest Chest palpation & inspection: normal inspection of the chest Resp Effort & Inspection: normal respiratory effort and able to speak in complete sentences Cardio Rate: regular rate GI Inspection: Yes normal to inspection General: Yes no CVA tenderness Back/Spine/Pelvis Back: no CVA tenderness Skin General skin exam: no rashes or lesions noted Neuro General: patient oriented x3 Extrem General: Yes normal to inspection Psych Appearance: grossly normal and well kempt Mental Status: mental status grossly normal Speech and movement: Normal speech and movement present and Clear speech present Affect: normal affect Attitude: cooperative Thought process: Normal thought process present Thought content: Normal thought content present Insight: Fair insight present (Psych) Judgement: Fair judgement present (Psych) Office Procedures Post Void Residual Post Residual Void Post Void Residual (PVR): 0 [id number] Void Residual by ultrasound Assessment & Plan Assessment & Plan (1) Elevated PSA: Code(s): R97.20 - Elevated prostate specific antigen [PSA] (2) Enlarged prostate with lower urinary tract symptoms (LUTS): Code(s): N40.1 - Benign prostatic hyperplasia with lower urinary tract symptoms Plan Unable to obtain urine for urinalysis however PVR 0 mL. Recent PSA results reviewed with the patient today; as noted above; trending down Patient denies any bothersome urinary issues or concerns at this time. Continue terazosin 8 mg at bedtime and 5 mg of finasteride daily. Will obtain PSA in 4 months. Follow-up in 4 months with PVR and lab to be completed prior; or sooner with any issues, concerns, and or questions. Orders: Orders AMB Post Void Residual by ultrasound Today N40.0 - Benign prostatic hyperplasia without lower urinary tract symptoms Prostate Specific Antigen 4 Months R97.20 - Elevated prostate specific antigen [PSA] Patient Instructions: The patient had an opportunity to ask questions regarding the treatment plan. All questions were answered. Physical exam, labs, and imaging were discussed and reviewed in detail. As well as risks, benefits, and discussion of treatment choices. No major barriers to understanding were identified. The patient expressed understanding and agreement with the above treatment plan. The patient was made aware they should contact our office by phone for worsening of their current condition, the appearance of new symptoms, or with any questions or concerns. Compliance is encouraged with any medications and follow up testing that is ordered. It is a privilege to be allowed the opportunity to participate in? your urological care.? Again, if you have any questions or concerns If you have any questions or concerns please do not hesitate to contact me. The office is [phone]. This note is constructed using voice recognition software. While every effort has been made to ensure accuracy salvage engineering technician errors may have been included. Yours sincerely, NEW Mckeon Coding Level of Care Code Est Pt Level 3 (04162) Diagnoses Elevated PSA R97.20 Enlarged prostate with lower urinary tract symptoms (LUTS) N40.1 CPT Codes Post Residual Void - PVR CPT Code: 36788-Dgoe Void Residual by ultrasound ([id number])
== END 2023-06-27 10:45 | disposition home or self-care (01) ==
PROVIDERS: PCP Internal Medicine; Visit Provider Nurse Practitioner Family
DX: R97.20 Elevated prostate specific antigen [PSA] (principal); N40.1 Benign prostatic hyperplasia with lower urinary tract symptoms
CPT/HCPCS: 99213

== ENCOUNTER → 2023-06-27 09:30 | Outpatient (BNVA) | payer MEDICARE, SELFPAY | PROVIDERS: PCP Internal Medicine; Visit Provider Nurse Practitioner Family | DX: N40.1 Benign prostatic hyperplasia with lower urinary tract symptoms (principal); R97.20 Elevated prostate specific antigen [PSA] | CPT/HCPCS: 51798; 99212 ==

== ENCOUNTER 2023-08-02 12:57 | Outpatient (REF) | payer MEDICARE, SELFPAY | END 2023-08-02 12:58 | disposition home or self-care (01) | LOC: HO.HOSX 12:57 | PROVIDERS: Visit Provider Physical Medicine & Rehabilitation | DX: Z13.89 Encounter for screening for other disorder (principal) ==

== ENCOUNTER 2023-08-29 09:30 | Outpatient (AMB) | payer MEDICARE, MEDICAID, SELFPAY ==
--- NOTE | 2023-08-29 09:34 | MHC.OFFVIS ---
Intake Intake Visit Reasons: N/P cervical and lumbar pain Intake Note: Jose is a 72-year-old male presenting as a new patient with pain in multiple joints of the body associated with contracture that is reported in his hands, shoulders, lower back, hips and knees. He has been referred by pain mgmt for consultation of botox or phenol injections regarding relief of lower extremity contracture as oral baclofen has not been helpful. He is been using NeuroFlex splints to promote knee extension, but they seem to have worsened his knee pain and tone, when they are taken off. He has difficulty extending his knees. Patient is wheelchair bound Allergies Penicillins Allergy (Severe, Verified 08/29/23 09:45) Rash tramadol Allergy (Unknown, Verified 08/29/23 09:45) inadequate response HPI HPI Comments History of Present Illness Details Referred by Dr. Hedrick for consideration of botox injections. Patient is Engling and Sami speaking, here with CHARCOAL KILN BURNER who helps with translation. He resides in a SNF. Mostly WC level, ambulates short distances only for exercises with 2 assist. Transfers with 2 assist. He says he had stroke 12 years ago, thinks affected right brain but made whole body weak. PT notes sent reported hypertonicity and pain on both knees and left hand. They've tried Estim and splinting without significant functional progress. Mild relief from therapy of pain but not long lasting. Both knees are always flexed, cannot extend fully, pain on hamstrings per patient. Left fingers alwasy flexed, mostly 3rd-5th digits. On Baclofen 15mg TID and gabapentin 100mg TID. Also on cymbalta, oxycodone. Recently prescribed Belbuca from pain management. [facility] Medical History (Updated 08/29/23 @ 10:50 by Jolynn Rodriguez MD) Spastic hemiparesis affecting dominant side Contracture, left hand Bilateral knee contractures Elevated PSA Insomnia Fibromyalgia GERD (gastroesophageal reflux disease) Hypovitaminosis D Lumbar degenerative disc disease Surgical History History of prostate surgery History of shoulder surgery History of laminectomy Family History Father Diabetes Hypertension Liver cancer Mother Diabetes Hypertension Stroke Other Substance use disorder Social History Housing: House Alcohol intake: current Alcohol intake frequency: a few times a week Alcohol type: beer and hard liquor Patient Tobacco Use Status: Former Tobacco user Cigarettes Per Day: 3 e-Cigarette/Vaping Use: Never Used Second Hand Smoke Exposure: No Advance Directives Date on File: 09/06/22 service: No Current occupational status: disabled Cognitive needs: Yes (cane) Hearing needs: No Vision needs: Yes (reading glasses) Review of Systems Const All systems reviewed & are unremarkable except as noted in HPI and below Physical Exam Constitutional: Patient appears to be in no acute distress, well nourished and well developed. MSK: left 3rd-5th DIP joints flexed at rest and unable to extend full. No tone noted on biceps or triceps or wrist flexors. Tone noted on bilateral hamstrings, Deborah at least 3. No ankle clonus. No tone noted on ankle dorislfexors. Neurological: WC bound. Results Reviewed Results Reviewed: I independently reviewed the results of the following: Left hand x-ray done today-degenerative changes on DIP joints 4th and 5th, 1st IP and MCP joint Lumbar x-ray done today-disc space loss at L4-5 and L5-S1 Knee xray - no bony pathology, await final reading I reviewed records from the following: SNF Assessment & Plan Assessment & Plan (1) Bilateral knee contractures: Code(s): M24.561 - Contracture, right knee; M24.562 - Contracture, left knee (2) Contracture, left hand: Code(s): M24.542 - Contracture, left hand (3) Spasticity: Code(s): R25.2 - Cramp and spasm (4) Spastic hemiparesis affecting dominant side: Code(s): G81.10 - Spastic hemiplegia affecting unspecified side (5) History of stroke: Code(s): Z86.73 - Personal history of transient ischemic attack (TIA), and cerebral infarction without residual deficits Plan Spasticity possibly from remote history of stroke. It is possible that it has been chronic enough to be contracted at this point. He does have MRI pending to rule out other causes for upper motor neuron deficitis, ordered by Dr. Hedrick, Pain Management. We could trial botulinum toxin injections to help with spasticity on bilateral hamstrings and left finger flexors. Discussed benefit and risks with patient and translated by CHARCOAL KILN BURNER. Patient eager to proceed. Explained that our office is still in the process of setting up these injections and that it would need prior authorization. Once we are all set up, we will reach out to them to schedule. I would probably start with 50 units to medial hamstrings, 50 units to lateral hamstrings, bilateral; and at least 50 units to finger flexors left. Total of 250-300 units. In the meantime, we will do xrays of knees and left hand to rule out any bony pathology causing contractures. (done, see above) Back xrays were also done earlier in the office (see above). Assessment and plan discussed with patient, and patient was agreeable. All questions were answered thoroughly. Jolynn Rodriguez MD, NELIDA Board Certified, [place] Board [employer] and Rehabilitation (ABPMR) Board Certified, [place] Board [employer] Electrodiagnostic [employer] (ABEM) Orders: Orders XR lumbar spine 2-3V Today M48.061 - Spinal stenosis, lumbar region without neurogenic claudication XR knee LT 3V Today M24.542 - Contracture, left hand, M24.561 - Contracture, right knee, M24.562 - Contracture, left knee, M25.50 - Pain in unspecified joint XR knee RT 3V Today M24.542 - Contracture, left hand, M24.561 - Contracture, right knee, M24.562 - Contracture, left knee XR hand LT min 3V Today M24.542 - Contracture, left hand, M24.561 - Contracture, right knee, M24.562 - Contracture, left knee XR hand RT min 3V Today R25.2 - Cramp and spasm Coding Level of Care Code New Pt Level 4 (28167) Diagnoses Bilateral knee contractures M24.561; M24.562 Contracture, left hand M24.542 Spasticity R25.2 Spastic hemiparesis affecting dominant side G81.10 History of stroke Z86.73
== END 2023-08-29 10:49 | disposition home or self-care (01) ==
PROVIDERS: PCP Internal Medicine; Visit Provider Physical Medicine & Rehabilitation
DX: M24.561 Contracture, right knee (principal); M24.562 Contracture, left knee; M24.542 Contracture, left hand; R25.2 Cramp and spasm; G81.10 Spastic hemiplegia affecting unspecified side; Z86.73 Personal history of transient ischemic attack (TIA), and cerebral infarction without residual deficits
CPT/HCPCS: 99204

== ENCOUNTER 2023-08-29 10:05 | Outpatient (REF) | payer MEDICARE, MEDICAID, SELFPAY ==
--- NOTE | ~2023-08-29 | XR_ITS ---
EXAMINATION: XR HAND, RIGHT CLINICAL INFORMATION: Cramps and spasms COMPARISON: 11/26/2018 TECHNIQUE: PA, lateral, and oblique views of the right hand. FINDINGS: The bones and soft tissues are normal. No fracture. Alignment is anatomic. Joint spaces are maintained. No erosions or soft tissue calcifications. XR/XR hand RT min 3V IMPRESSION: Normal right hand.
--- NOTE | ~2023-08-29 | XR_ITS ---
EXAMINATION: XR KNEE, LEFT CLINICAL INFORMATION: Pain in left knee COMPARISON: None available. TECHNIQUE: Four views of the left knee. FINDINGS: The left knee is in bending position without evidence of fracture or joint effusion. Soft tissues unremarkable. XR/XR knee LT 2V IMPRESSION: Unremarkable limited study
--- NOTE | ~2023-08-29 | XR_ITS ---
EXAMINATION: XR KNEE, RIGHT CLINICAL INFORMATION: Contracture of right COMPARISON: None available. TECHNIQUE: Two views of the right knee, including lateral and sunrise. FINDINGS: Limited evaluation of right knee revealed unremarkable bones and joints. There is no evidence of fractures or osteoarthritis. XR/XR knee RT 2V IMPRESSION: Limited evaluation of right knee, unremarkable
--- NOTE | ~2023-08-29 | XR_ITS ---
EXAMINATION: XR LUMBOSACRAL SPINE CLINICAL INFORMATION: 73-year-old male with spinal stenosis in lumbar region without neurogenic claudication. COMPARISON: 03/28/[address] abdomen from 07/09/2000 TECHNIQUE: Three views of the lumbosacral spine. FINDINGS: There are 5 not ribs bearing vertebral bodies and lumbar spine. There is mild dextroscoliosis of lumbar spine. Vertebral bodies are well aligned with narrowing of L2-L3, L4-L5, L5-S1. There is facet arthropathy at the level of L4-L5 and L5-S1. Pedicles are preserved. Sacroiliac joints unremarkable. Soft tissues are normal. XR/XR lumbar spine 2-3V IMPRESSION: Multilevel degenerative changes
--- NOTE | ~2023-08-29 | XR_ITS ---
EXAMINATION: XR HAND, LEFT CLINICAL INFORMATION: Spasm in left hand COMPARISON: The 2018 TECHNIQUE: PA, lateral, and oblique views of the left hand. FINDINGS: The fifth-4 6 metacarpophalangeal joints are contracted and there is subluxation at the first interphalangeal joint. No evidence of joint spaces narrowing or soft tissue abnormalities. XR/XR hand LT min 3V IMPRESSION: Left hand fingers in bending position.
== END 2023-08-29 10:06 | disposition home or self-care (01) ==
LOC: HO.HOSX 10:05
PROVIDERS: Visit Provider Physical Medicine & Rehabilitation
DX: M48.061 Spinal stenosis, lumbar region without neurogenic claudication (principal); M24.542 Contracture, left hand; R25.2 Cramp and spasm; M24.561 Contracture, right knee; M24.562 Contracture, left knee; G81.10 Spastic hemiplegia affecting unspecified side; M25.50 Pain in unspecified joint; Z86.73 Personal history of transient ischemic attack (TIA), and cerebral infarction without residual deficits; Z99.3 Dependence on wheelchair
CPT/HCPCS: 72100; 73130; 73560; 99202

== ENCOUNTER 2023-11-28 11:57 | Outpatient (AMB) | payer MEDICARE, MEDICAID, SELFPAY ==
--- NOTE | 2023-11-28 11:54 | A.OFFVIS_ITS ---
Intake Vital Signs 11/28/23 11:58 Height 5 ft 6 in Weight 160 lb BMI 25.8 Intake Visit Reasons: Telehealth Botox injection discussion Intake Note: Jose is a 73 year old male who is on the phone for a telehealth visit to discuss botox injections. Allergies Penicillins Allergy (Severe, Verified 11/28/23 11:58) Rash tramadol Allergy (Unknown, Verified 11/28/23 11:58) inadequate response HPI HPI Comments History of Present Illness Details Patient was initially referred by Dr. Hedrick for consideration of botox injections. I saw him last August. Patient is Frisian and Kazakh speaking. He resides in a SNF. Mostly WC level, ambulates short distances only for exercises with 2 assist. Transfers with 2 assist. History of stroke 12 years ago, thinks affected right brain but made whole body weak. PT notes sent reported hypertonicity and pain on both knees and left hand. They've tried Estim and splinting without significant functional progress. Mild relief from therapy of pain but not long lasting. Both knees are always flexed, cannot extend fully, pain on hamstrings per patient. Left fingers always flexed, mostly 3rd-5th digits. On Baclofen 15mg TID and gabapentin 100mg TID. Also on cymbalta, oxycodone. Recently prescribed Belbuca from pain management. Telehealth (phone encounter) today with patient and assisted by charge nurse Marcelle, to discusse planned botulinum toxin injectino (Botox). Marcelle confirms that both knees are still tightly flexed, tight on hamstrings; and left fingers are still curled in. Patient says even right fingers/hands curled in. No recent hospitalizations or injuries or strokes or interventions. Remains on same medications. [facility] Medical History (Updated 08/29/23 @ 10:50 by Jolynn Rodriguez MD) Spastic hemiparesis affecting dominant side Contracture, left hand Bilateral knee contractures Elevated PSA Insomnia Fibromyalgia GERD (gastroesophageal reflux disease) Hypovitaminosis D Lumbar degenerative disc disease Surgical History History of prostate surgery History of shoulder surgery History of laminectomy Family History Father Diabetes Hypertension Liver cancer Mother Diabetes Hypertension Stroke Other Substance use disorder Social History Housing: House Alcohol intake: current Alcohol intake frequency: a few times a week Alcohol type: beer and hard liquor Patient Tobacco Use Status: Former Tobacco user Cigarettes Per Day: 3 e-Cigarette/Vaping Use: Never Used Second Hand Smoke Exposure: No Advance Directives Date on File: 09/06/22 service: No Current occupational status: disabled Cognitive needs: Yes (cane) Hearing needs: No Vision needs: Yes (reading glasses) Physical Exam Vital Signs: BMI result Body Mass Index 25.8 No exam done, telehealth. Results Reviewed Results Reviewed: Ordering Physician: Jolynn Trinh Date of Service: 08/29/23 Procedure(s): XR knee LT 2V Accession Number(s): [id number] cc: Jolynn Robin EXAMINATION: XR KNEE, LEFT CLINICAL INFORMATION: Pain in left knee COMPARISON: None available. TECHNIQUE: Four views of the left knee. FINDINGS: The left knee is in bending position without evidence of fracture or joint effusion. Soft tissues unremarkable. XR/XR knee LT 2V IMPRESSION: Unremarkable limited study Ordering Physician: Jolynn Trinh Date of Service: 08/29/23 Procedure(s): XR hand RT min 3V Accession Number(s): [id number] cc: Jolynn Trinh~ EXAMINATION: XR HAND, RIGHT CLINICAL INFORMATION: Cramps and spasms COMPARISON: 11/26/2018 TECHNIQUE: PA, lateral, and oblique views of the right hand. FINDINGS: The bones and soft tissues are normal. No fracture. Alignment is anatomic. Joint spaces are maintained. No erosions or soft tissue calcifications. XR/XR hand RT min 3V IMPRESSION: Normal right hand. Assessment & Plan Assessment & Plan (1) Spastic hemiparesis affecting dominant side: Code(s): G81.10 - Spastic hemiplegia affecting unspecified side (2) Spasticity: Code(s): R25.2 - Cramp and spasm (3) History of stroke: Code(s): Z86.73 - Personal history of transient ischemic attack (TIA), and cerebral infarction without residual deficits Plan Spasticity affecting both lower extremities and left hand. History of stroke. Patient?s abnormal muscle tone in the setting of history of stroke is interfering with functional ability, and is expected to result in joint contracture without adequate intervention. Standard medical treatments such as physical therapy and oral medication have failed. Surgical intervention is considered to be the last option. Therefore chemodenervation using botulinum is deemed necessary to enhance function and allow additional therapeutic modalities to be employed. After a long discussion with the patient and charge nurse, we have decided to go ahead and do botulinum toxin injection into bilateral hamstrings and left finger flexors. A total of 300 units of Botox is anticipated. 50 units on medial hamstrings left, 50 units lateral hamstrings left, 50 units medial hamstrings right, 50 units lateral hamstrings right, 50 units left FDI, 50 units left FDS. No wastage anticipated. The procedure will be scheduled after prior authorization. Assessment and plan discussed with patient, and patient was agreeable. All questions were answered thoroughly. Phone encounter 25 minutes. Jolynn Rodriguez MD, NELIDA Board Certified, [place] [employer] and Rehabilitation (ABPMR) Board Certified, [place] [employer] Electrodiagnostic [employer] (ABEM) Coding Level of Care Code Tele Est Pt Level 4 (37233) Diagnoses Spastic hemiparesis affecting dominant side G81.10 Spasticity R25.2 History of stroke Z86.73
[2023-11-28 11:58] VITALS: BMI 25.8
== END 2023-11-28 12:04 | disposition home or self-care (01) ==
LOC: HO.HOS 11:57
PROVIDERS: PCP Internal Medicine; Visit Provider Physical Medicine & Rehabilitation
DX: G81.10 Spastic hemiplegia affecting unspecified side (principal); R25.2 Cramp and spasm; Z86.73 Personal history of transient ischemic attack (TIA), and cerebral infarction without residual deficits
CPT/HCPCS: 99443

== ENCOUNTER → 2023-11-28 11:57 | Outpatient (BNVA) | payer MEDICARE, MEDICAID, SELFPAY | PROVIDERS: PCP Internal Medicine; Visit Provider Physical Medicine & Rehabilitation ==

== ENCOUNTER 2023-12-11 08:20 | Outpatient (AMB) | payer MEDICARE, MEDICAID, SELFPAY ==
--- NOTE | 2023-12-11 08:29 | A.OFFVIS_ITS ---
Intake Visit Reasons: follow up/ labs (confirmed) Intake Note: Patient is present for follow up PSA/BPH/labs Urology Medications: terazosin, finasteride Blood Thinner: none PVR: 65ml's Sample Mounter Required: Yes Accompanied by: caregiver Allergies Penicillins Allergy (Severe, Verified 12/11/23 09:04) Rash tramadol Allergy (Unknown, Verified 12/11/23 09:04) inadequate response Medication List - Last Reconciled 12/11/23 by NEW Mckeon acetaminophen 325 mg PO TID PRN amlodipine 5 mg PO DAILY baclofen mg PO baclofen 10 mg PO TID buspirone 1 tab PO TID cholecalciferol (vitamin D3) (Vitamin D3) 25 mcg PO DAILY 90 days diclofenac sodium 1% 1 ea topical QID docusate sodium (Colace) 100 mg PO BID duloxetine 30 mg PO BID finasteride 5 mg PO DAILY 90 days folic acid 1 mg PO DAILY gabapentin 100 mg PO TID geriatric [id number] 1 tab PO DAILY magnesium oxide 400 mg PO DAILY omeprazole 20 mg PO DAILY 90 days oxycodone 5 mg PO TID PRN sennosides (senna) 8.6 mg PO DAILY 90 days terazosin 8 mg PO DAILY thiamine HCl (vitamin B1) 50 mg PO DAILY trazodone 25 mg PO BEDTIME PRN zolpidem 1 tab PO BEDTIME PRN HPI Comments Details: Jose is a pleasant 73 year old [place]an-speaking male patient Dr. Mendez who was accompanied by one of the CNAs at [facility] where the patient resides. He has a PMH of GERD, BPH and polyarthralgias secondary to fibromyalgia. He presents to the office today for a follow up of his elevated PSA and lower urinary tract symptoms. Recent PSA results reviewed with the patient today as noted and trended below. Previous workup has included a retroperitoneal ultrasound noting bilateral kidneys with no calculi, lesions, and or hydronephrosis noted. The bladder is partially distended. There is notable focal thickening along the posterior wall of the bladder. The prostate gland is enlarged measuring approximately 55 mL. PSAs: 09/11 7.2, 6.1, 03/11 5.5, 06/11 3.7 PSA free 19%, 10/13 2.7 In review of patient's MAR it appears patient is compliant with terazosin 8 mg at bedtime and finasteride 5 mg daily. Patient currently denies any bothersome urinary issues or concerns at this time. Unable to obtain urine for urinalysis however PVR 65mL. Patient discusses at length his arthritis and arthritic/fibromyalgia pain he experiences to his extremities. He discusses being compliant with therapy that is being provided and given at the group home. When asked patient denies urinary urgency, urinary frequency, incontinence, nocturia, hematuria, dysuria, foul smelling urine, changes to urinary stream, flank pain, fever, and or chills. Patient otherwise denies any issues or concerns at this time. [facility] Medical History Spastic hemiparesis affecting dominant side Contracture, left hand Bilateral knee contractures Elevated PSA Insomnia Fibromyalgia GERD (gastroesophageal reflux disease) Hypovitaminosis D Lumbar degenerative disc disease Surgical History History of prostate surgery History of shoulder surgery History of laminectomy Family History Father Diabetes Hypertension Liver cancer Mother Diabetes Hypertension Stroke Other Substance use disorder Social History Housing: House Alcohol intake: current Alcohol intake frequency: a few times a week Alcohol type: beer and hard liquor Patient Tobacco Use Status: Former Tobacco user Cigarettes Per Day: 3 e-Cigarette/Vaping Use: Never Used Second Hand Smoke Exposure: No Advance Directives Date on File: 09/06/22 service: No Current occupational status: disabled Cognitive needs: Yes (cane) Hearing needs: No Vision needs: Yes (reading glasses) Review of Systems Const Reports as per HPI Eyes Reports no additional complaints ENT Reports no additional complaints Card Reports no additional complaints Resp Reports no additional complaints GI Reports as per HPI Reports as per HPI Musc Reports as per HPI Neuro Reports as per HPI Psych Reports no additional complaints Endo Reports no additional complaints Seven/Lymph Reports no additional complaints Physical Exam Const General: cooperative, comfortable, no acute distress, well developed, alert and awake Orientation/consciousness: patient oriented x3 Limitations: wheelchair HEENT Head: Yes normal to inspection, Yes normocephalic and Yes atraumatic Ears: hearing grossly normal bilaterally Eyes General: appearance normal, both eyes and all related structures Neck Neck: Yes normal visual inspection and Yes trachea midline Chest Chest palpation & inspection: normal inspection of the chest Resp Effort & Inspection: normal respiratory effort and able to speak in complete sentences Cardio Rate: regular rate GI Inspection: Yes normal to inspection General: Yes no CVA tenderness Back/Spine/Pelvis Back: no CVA tenderness Skin General skin exam: no rashes or lesions noted Neuro General: patient oriented x3 Extrem General: Yes normal to inspection Psych Appearance: grossly normal and well kempt Mental Status: mental status grossly normal Speech and movement: Normal speech and movement present and Clear speech present Affect: normal affect Attitude: cooperative Thought process: Normal thought process present Thought content: Normal thought content present Insight: Fair insight present (Psych) Judgement: Fair judgement present (Psych) Office Procedures Post Void Residual Post Residual Void Post Void Residual (PVR): 65 [id number] Void Residual by ultrasound Assessment & Plan Assessment & Plan (1) Enlarged prostate with lower urinary tract symptoms (LUTS): Code(s): N40.1 - Benign prostatic hyperplasia with lower urinary tract symptoms Category: Medical (2) Elevated PSA: Code(s): R97.20 - Elevated prostate specific antigen [PSA] Category: Medical Plan Unable to obtain urine for urinalysis however PVR 65mL. Recent PSA results reviewed with the patient today; as noted above; trending down Patient denies any bothersome urinary issues or concerns at this time. Continue terazosin 8 mg at bedtime and 5 mg of finasteride daily. Will obtain PSA in 6 months. Follow-up in 6 months with PVR and lab to be completed prior; or sooner with any issues, concerns, and or questions. Orders: Orders Prostate Specific Antigen 6 Months N40.1 - Benign prostatic hyperplasia with lower urinary tract symptoms AMB Post Void Residual by ultrasound Today N40.1 - Benign prostatic hyperplasia with lower urinary tract symptoms Patient Instructions: The patient had an opportunity to ask questions regarding the treatment plan. A ll questions were answered. Physical exam, labs, and imaging were discussed and reviewed in detail. As well as risks, benefits, and discussion of treatment choices. No major barriers to understanding were identified. The patient expressed understanding and agreement with the above treatment plan. The patient was made aware they should contact our office by phone for worsening of their current condition, the appearance of new symptoms, or with any questions or concerns. Compliance is encouraged with any medications and follow up testing that is ordered. It is a privilege to be allowed the opportunity to participate in? your urological care.? Again, if you have any questions or concerns If you have any questions or concerns please do not hesitate to contact me. The office is [phone]. This note is constructed using voice recognition software. While every effort has been made to ensure accuracy publicity person errors may have been included. Yours sincerely, MAILE Mckeon-BC
== END 2023-12-11 08:58 | disposition home or self-care (01) ==
PROVIDERS: PCP Internal Medicine; Visit Provider Nurse Practitioner Family
DX: N40.1 Benign prostatic hyperplasia with lower urinary tract symptoms (principal); R97.20 Elevated prostate specific antigen [PSA]
CPT/HCPCS: 99213

== ENCOUNTER → 2023-12-11 08:20 | Outpatient (BNVA) | payer MEDICARE, MEDICAID, SELFPAY | PROVIDERS: PCP Internal Medicine; Visit Provider Nurse Practitioner Family | DX: R97.20 Elevated prostate specific antigen [PSA] (principal); N40.1 Benign prostatic hyperplasia with lower urinary tract symptoms | CPT/HCPCS: 51798; 99212 ==

== ENCOUNTER 2024-01-01 14:39 | Outpatient (REF) | payer MEDICARE, MEDICAID, SELFPAY ==
--- NOTE | 2024-01-01 14:46 | EMG_ITS ---
PROCEDURE PERFORMED: Botulinum toxin chemodenervation, left upper extremity, bilateral lower extremity DIAGNOSIS: Spastic hemiparesis right, spastic paraparesis affecting both legs ICD10: G81.11, G81.14 INDICATION: spastic muscles PREVIOUS TREATMENT AND RESPONSE: Oral antispasticity medications and physical therapy without response EXAM ON DAY OF PROCEDURE: Deborah 3 on bilateral knee flexors Deborah 2 on left finger flexors, 3rd-4th digits, flexed at PIP and DIP joints TOXIN USED: Botox PROCEDURE: The procedure was explained to the patient/caregiver, and informed consent was obtained. The patient laid down on bed. Left upper extremity and bilateral legs were cleansed with betadine in the usual sterile manner. A 28 gauge needle electrode was used. Muscle Units per site Number of sites Units per muscle Left FDP 50 1 50 Left FDS 50 1 50 Left medial hamstrings 50 1 50 Left lateral hamstrings 50 1 50 Right medial hamstrings 50 1 50 Right lateral hamstrings 50 1 50 EMG-guidance was used during the injection. A total of 300 units injected. 0 units wastage. Vial size: 100 units per vial Dilution: 100 units per 1 ml of preservative free saline The patient tolerated the procedure well without complications. The patient was observed for 30 minutes, before being discharged with post procedure instructions. CODING: CPT code: 97873 1 ext, 1-4 muscles 25695 each add?l limb, 1-4 muscles x2 Wastage: No wastage Guidance code: 40568 EMG guidance for chemodenervation J code: Botox J0585 [facility] code: 2454-1767-84 Lot #: [id number] [facility]
== END 2024-01-01 14:40 | disposition home or self-care (01) ==
LOC: HO.NEURO 14:39
PROVIDERS: Visit Provider Physical Medicine & Rehabilitation
DX: G81.12 Spastic hemiplegia affecting left dominant side (principal); R25.2 Cramp and spasm; Z86.73 Personal history of transient ischemic attack (TIA), and cerebral infarction without residual deficits
CPT/HCPCS: 64642; 64643; 95874; J0585

== ENCOUNTER → 2024-01-01 14:40 | Outpatient (BNV) | payer MEDICARE, MEDICAID, SELFPAY | PROVIDERS: Visit Provider Physical Medicine & Rehabilitation | DX: G81.11 Spastic hemiplegia affecting right dominant side (principal); G81.14 Spastic hemiplegia affecting left nondominant side | CPT/HCPCS: 64642; 64643; 95874 ==

== ENCOUNTER 2024-01-30 11:05 | Outpatient (AMB) | payer MEDICARE, MEDICAID, SELFPAY ==
--- NOTE | 2024-01-30 11:06 | MHC.OFFVIS ---
Intake Visit Reasons: F/U Botox inj December 31 Intake Note: Jose 73 yr old male presents today for his follow up visit for bilateral hamstrings and left finger flexors Botox injections from Jan 01 2024. Pt states the botox injections did not help him at all. He states he is still having pain everyday. Allergies Penicillins Allergy (Severe, Verified 01/30/24 11:13) Rash tramadol Allergy (Unknown, Verified 01/30/24 11:13) inadequate response Medication List - Last Reconciled 01/30/24 by Jolynn Rodriguez MD acetaminophen 325 mg PO TID PRN amlodipine 5 mg PO DAILY baclofen mg PO baclofen 10 mg PO TID buspirone 1 tab PO TID cholecalciferol (vitamin D3) (Vitamin D3) 25 mcg PO DAILY 90 days diclofenac sodium 1% 1 ea topical QID docusate sodium (Colace) 100 mg PO BID duloxetine 30 mg PO BID finasteride 5 mg PO DAILY 90 days folic acid 1 mg PO DAILY gabapentin 100 mg PO TID geriatric [id number] 1 tab PO DAILY magnesium oxide 400 mg PO DAILY omeprazole 20 mg PO DAILY 90 days oxycodone 5 mg PO TID PRN sennosides (senna) 8.6 mg PO DAILY 90 days terazosin 8 mg PO DAILY thiamine HCl (vitamin B1) 50 mg PO DAILY trazodone 25 mg PO BEDTIME PRN zolpidem 1 tab PO BEDTIME PRN HPI Comments Details: Here for post botulinum toxin injection follow-up. DATE OF PROCEDURE: 01/01/2024 PROCEDURE PERFORMED: Botulinum toxin chemodenervation, left upper extremity, bilateral lower extremity DIAGNOSIS: Spastic hemiparesis right, spastic paraparesis affecting both legs ICD10: G81.11, G81.14 INDICATION: spastic muscles PREVIOUS TREATMENT AND RESPONSE: Oral antispasticity medications and physical therapy without response EXAM ON DAY OF PROCEDURE: Deborah 3 on bilateral knee flexors Deborah 2 on left finger flexors, 3rd-4th digits, flexed at PIP and DIP joints TOXIN USED: Botox Muscle Units per site Number of sites Units per muscle Left FDP 50 1 50 Left FDS 50 1 50 Left medial hamstrings 50 1 50 Left lateral hamstrings 50 1 50 Right medial hamstrings 50 1 50 Right lateral hamstrings 50 1 50 EMG-guidance was used during the injection. A total of 300 units injected. FOLLOW UP: 01/30/2024 patient says that he continues to have tightness on back of his thighs pulling on the knees. Left hand is much more open. [facility] Medical History (Updated 01/30/24 @ 13:09 by Jolynn Rodriguez MD) Spastic hemiparesis of left dominant side Spastic hemiplegia affecting right dominant side Spastic hemiparesis affecting dominant side Contracture, left hand Bilateral knee contractures Elevated PSA Insomnia Fibromyalgia GERD (gastroesophageal reflux disease) Hypovitaminosis D Lumbar degenerative disc disease Surgical History History of prostate surgery History of shoulder surgery History of laminectomy Family History Father Diabetes Hypertension Liver cancer Mother Diabetes Hypertension Stroke Other Substance use disorder Social History Housing: House Alcohol intake: current Alcohol intake frequency: a few times a week Alcohol type: beer and hard liquor Patient Tobacco Use Status: Former Tobacco user Cigarettes Per Day: 3 e-Cigarette/Vaping Use: Never Used Second Hand Smoke Exposure: No Advance Directives Date on File: 09/06/22 service: No Current occupational status: disabled Cognitive needs: Yes (cane) Hearing needs: No Vision needs: Yes (reading glasses) Physical Exam EXAM ON DAY OF PROCEDURE: 01/01/2024 Deborah 3 on bilateral knee flexors Deborah 2 on left finger flexors, 3rd-4th digits, flexed at PIP and DIP joints FOLLOW UP: 01/30/2024 Left finger flexors much more open especially on DIP 3rd to 5th digits. Still very flex on PIP joints 3rd to 5th digits. Deborah improved to 2. Both knees still flex at -45 degrees extension lag. Deborah still 3 bilateral hamstrings. Assessment & Plan Assessment & Plan (1) Spasticity: Code(s): R25.2 - Cramp and spasm Category: Medical (2) History of stroke: Code(s): Z86.73 - Personal history of transient ischemic attack (TIA), and cerebral infarction without residual deficits Category: Medical (3) Spastic hemiplegia affecting right dominant side: Code(s): G81.11 - Spastic hemiplegia affecting right dominant side Category: Medical Qualifiers: Hemiplegia etiology: late effect of cerebrovascular disease Cerebrovascular disease type: cerebral infarction Qualified Code(s): I69.351 - Hemiplegia and hemiparesis following cerebral infarction affecting right dominant side (4) Spastic hemiparesis of left dominant side: Code(s): G81.12 - Spastic hemiplegia affecting left dominant side Category: Medical Plan Spasticity affecting both lower extremities and left hand. History of stroke. Improvement on left finger flexor seen. Knee flexion spasticity still continues to be a challenge. Patient tolerated 1st botulinum toxin injection. It is reasonable to continue with increase in dose. Goal is to improve range of motion, which hopefully and eventually will improve his pain. Would propose increasing dose of 500 units. Continue 100 units to left upper extremity. Increased dose to 200 units each leg, specifically to hamstrings. Assessment and plan discussed with patient, and patient was agreeable. All questions were answered thoroughly. Jolynn Rodriguez MD, NELIDA Board Certified, [place] [employer] and Rehabilitation (ABPMR) Board Certified, [place] Board [employer] Electrodiagnostic Medicine (ABEM) Coding Level of Care Code Est Pt Level 3 (92745) Diagnoses Spasticity R25.2 History of stroke Z86.73 Spastic hemiplegia of right dominant side as late effect of cerebral infarction I69.351 Hemiplegia etiology: late effect of cerebrovascular disease Cerebrovascular disease type: cerebral infarction Spastic hemiparesis of left dominant side G81.12
== END 2024-01-30 11:34 | disposition home or self-care (01) ==
PROVIDERS: PCP Internal Medicine; Visit Provider Physical Medicine & Rehabilitation
DX: R25.2 Cramp and spasm (principal); I69.351 Hemiplegia and hemiparesis following cerebral infarction affecting right dominant side
CPT/HCPCS: 99213

== ENCOUNTER → 2024-01-30 11:05 | Outpatient (BNVA) | payer MEDICARE, MEDICAID, SELFPAY | PROVIDERS: PCP Internal Medicine; Visit Provider Physical Medicine & Rehabilitation | DX: I69.351 Hemiplegia and hemiparesis following cerebral infarction affecting right dominant side (principal); R25.2 Cramp and spasm | CPT/HCPCS: 99212 ==

== ENCOUNTER 2024-03-25 13:31 | Outpatient (REF) | payer MEDICARE, MEDICAID, SELFPAY ==
--- NOTE | 2024-03-25 13:35 | EMG_ITS ---
PROCEDURE PERFORMED: Botulinum toxin chemodenervation, left upper extremity, bilateral lower extremity DIAGNOSIS: Spastic hemiparesis right, spastic paraparesis affecting both legs ICD10: G81.11, G81.14 PREVIOUS TREATMENT AND RESPONSE: Oral antispasticity medications and physical therapy without response Last injection 01/01/24 TOXIN USED: Botox? PROCEDURE: The procedure was explained to the patient/caregiver, and informed consent was obtained. The patient laid down on bed.? Left upper extremity and bilateral legs were cleansed with betadine in the usual sterile manner. A 28 gauge needle electrode was used. Muscle Units per site Number of sites Units per muscle Left FDP 50 1 50 Left FDS 50 1 50 Left medial hamstrings 50 2 100 Left lateral hamstrings 50 2 100 Right medial hamstrings 50 2 100 Right lateral hamstrings 50 2 100 ? EMG-guidance was used during the injection. A total of 500 units injected. 0 units wastage. Vial size: 100 units per vial ? x5 Dilution: 100 units per 1 ml of preservative free saline The patient tolerated the procedure well without complications. The patient was observed for a few minutes, before being discharged with post procedure instructions. CODING: CPT code: 14539 1 ext, 1-4 muscles 08094 each add?l limb, 1-4 muscles x2 Wastage: No wastage Guidance code: 32755 EMG guidance for chemodenervation J code: Botox J0585? [facility] code: [id number] Lot #: [id number], [id number] [facility]
== END 2024-03-25 13:32 | disposition home or self-care (01) ==
LOC: HO.NEURO 13:31
PROVIDERS: PCP Internal Medicine; Visit Provider Physical Medicine & Rehabilitation
DX: G81.12 Spastic hemiplegia affecting left dominant side (principal); R25.2 Cramp and spasm; Z86.73 Personal history of transient ischemic attack (TIA), and cerebral infarction without residual deficits
CPT/HCPCS: 64642; 64643; 95874; J0585

== ENCOUNTER → 2024-03-25 13:35 | Outpatient (BNV) | payer MEDICARE, MEDICAID, SELFPAY | PROVIDERS: PCP Internal Medicine; Visit Provider Physical Medicine & Rehabilitation | DX: G81.11 Spastic hemiplegia affecting right dominant side (principal); G81.14 Spastic hemiplegia affecting left nondominant side | CPT/HCPCS: 64642; 64643; 95874 ==

== ENCOUNTER 2024-05-07 10:46 | Outpatient (REF) | payer MEDICARE, MEDICAID, SELFPAY | END 2024-05-07 10:47 | disposition home or self-care (01) | LOC: HO.HOSX 10:46 | PROVIDERS: PCP Internal Medicine; Visit Provider Physical Medicine & Rehabilitation | DX: G81.12 Spastic hemiplegia affecting left dominant side (principal); S43.002A Unspecified subluxation of left shoulder joint, initial encounter | CPT/HCPCS: 99212 ==

== ENCOUNTER 2024-05-07 10:46 | Outpatient (AMB) | payer MEDICARE, MEDICAID, SELFPAY ==
--- NOTE | 2024-05-07 10:53 | A.OFFVIS_ITS ---
Intake Visit Reasons: OV-post botox review-4-6 WK F/U Intake Note: Jose is a 3 year old male who presents today for a follow up visit s/p botox injected on 01/01/2024. Pt states the botox didnt help as much this time. Pt states he is still in some pain and he is still having shakiness in his body. Allergies Penicillins Allergy (Severe, Verified 05/07/24 10:54) Rash tramadol Allergy (Unknown, Verified 05/07/24 10:54) inadequate response HPI Comments Details: POST BOTOX FOLLOW UP: DIAGNOSIS: Spastic hemiparesis right, spastic paraparesis affecting both legs ICD10: G81.11, G81.14 LAST INJECTION: 03/25/24, 01/01/24 TOXIN USED: Botox? Muscle Units per site Number of sites Units per muscle Left FDP 50 1 50 Left FDS 50 1 50 Left medial hamstrings 50 2 100 Left lateral hamstrings 50 2 100 Right medial hamstrings 50 2 100 Right lateral hamstrings 50 2 100 EMG-guidance was used during the injection. A total of 500 units injected. PT notes: Bilateral lower extremity seem to have reduced, not as frequent. Reports of pain remain unchanged. Patient continues with E stim, bracing, TherEx and mobility training. OT notes: Reports of pain left upper extremity, with increased pain left pectoralis/anterior shoulder due to spasms. Overall spasms in left hand have reduced slightly. OT continues with E stim, ultrasound, dynamic splint trialing, ATLS, and TherEx. Medication review, medication include: Lyrica 50 mg t.i.d. Lamictal 12.5 mg at night Baclofen 15 mg t.i.d. Oxycodone 5 mg Q 8. Cymbalta 30 mg b.i.d. [facility] Medical History (Updated 05/07/24 @ 13:26 by Jolynn Rodriguez MD) Spastic hemiparesis of left dominant side Spastic hemiplegia affecting right dominant side Spastic hemiparesis affecting dominant side Contracture, left hand Bilateral knee contractures Elevated PSA Insomnia Fibromyalgia GERD (gastroesophageal reflux disease) Hypovitaminosis D Lumbar degenerative disc disease Surgical History History of prostate surgery History of shoulder surgery History of laminectomy Family History Father Diabetes Hypertension Liver cancer Mother Diabetes Hypertension Stroke Other Substance use disorder Social History Housing: House Alcohol intake: current Alcohol intake frequency: a few times a week Alcohol type: beer and hard liquor Patient Tobacco Use Status: Former Tobacco user Cigarettes Per Day: 3 e-Cigarette/Vaping Use: Never Used Second Hand Smoke Exposure: No Advance Directives Date on File: 09/06/22 service: No Current occupational status: disabled Cognitive needs: Yes (cane) Hearing needs: No Vision needs: Yes (reading glasses) Physical Exam EXAM ON DAY OF PROCEDURE: 01/01/2024 Deborah 3 on bilateral knee flexors Deborah 2 on left finger flexors, 3rd-4th digits, flexed at PIP and DIP joints FOLLOW UP: 01/30/2024 Left finger flexors much more open especially on DIP 3rd to 5th digits. Still very flex on PIP joints 3rd to 5th digits. Deborah improved to 2. Both knees still flex at -45 degrees extension lag. Deborah still 3 bilateral hamstrings. 05/07/2024 (post Botox injection 03/25/2024) Left knee extension lag,-15 degrees. Right knee extension lag,-45 degrees. Left hand: Flexed at MCP joints 3rd to 5th digits. No flexion on IP joints. Left 2nd digit not flexed. Assessment & Plan Assessment & Plan (1) Spastic hemiparesis of left dominant side: Code(s): G81.12 - Spastic hemiplegia affecting left dominant side Category: Medical (2) Spastic hemiplegia affecting right dominant side: Code(s): G81.11 - Spastic hemiplegia affecting right dominant side Category: Medical Qualifiers: Hemiplegia etiology: late effect of cerebrovascular disease Cerebrovascular disease type: cerebral infarction Qualified Code(s): I69.351 - Hemiplegia and hemiparesis following cerebral infarction affecting right dominant side (3) Shoulder subluxation, left: Code(s): S43.002A - Unspecified subluxation of left shoulder joint, initial encounter Category: Medical Qualifiers: Encounter type: initial encounter Qualified Code(s): S43.002A - Unspecified subluxation of left shoulder joint, initial encounter Plan Patient been following Physiatry for spasticity management with botulinum toxin injections. Two rounds done already for hamstrings (knee flexion contractures) and left finger flexion contracture. Improvement seen based on physical exam findings, see above. Patient looks so much more comfortable. Less complaints of pain today. He looks much more comfortable today. Spontaneous knee flexion spasm seen when he laughed. Range of motion in left knee improved. Knee flexion spasticity is worse in the right side. Left finger flexors bent more in the MCPs now rather than IP joints. He says that is improved. He is concerned that he is developing the same spasticity on right finger flexors. Reviewed notes from PT and OT. Concern for spasms on left pectoralis/anterior shoulder raised by OT. But no palpable spasticity on those areas today. I wonder if we can consider steroid injection for left shoulder instead. Left shoulder x-ray today if possible or to be scheduled. Possible subluxation. We will schedule for steroid injection left shoulder in couple of weeks. Next Botox injection would be Sunday. Proposed total of 650-700 units to be injected as follows: Left hand finger flexors 100 units Right hand finger flexors 50 units Left hamstrings 200 units Right hamstrings, increased to 300 units Assessment and plan discussed with patient, and patient was agreeable. All questions were answered thoroughly. Jolynn Rodriguez MD, NELIDA Board Certified, [place] [employer] and Rehabilitation (ABPMR) Board Certified, [place] [employer] Electrodiagnostic [employer] (ABEM) Orders: Orders XR shoulder LT min 2V Today G81.12 - Spastic hemiplegia affecting left dominant side, S43.002A - Unspecified subluxation of left shoulder joint, initial encounter Coding Level of Care Code Est Pt Level 4 (66213) Diagnoses Spastic hemiparesis of left dominant side G81.12 Spastic hemiplegia of right dominant side as late effect of cerebral infarction I69.351 Hemiplegia etiology: late effect of cerebrovascular disease Cerebrovascular disease type: cerebral infarction Subluxation of left shoulder joint, initial encounter S43.002A Encounter type: initial encounter
== END 2024-05-07 11:35 | disposition home or self-care (01) ==
PROVIDERS: PCP Internal Medicine; Visit Provider Physical Medicine & Rehabilitation
DX: G81.12 Spastic hemiplegia affecting left dominant side (principal); I69.351 Hemiplegia and hemiparesis following cerebral infarction affecting right dominant side; S43.002A Unspecified subluxation of left shoulder joint, initial encounter
CPT/HCPCS: 99214

== ENCOUNTER 2024-06-05 10:08 | Outpatient (AMB) | payer MEDICARE, MEDICAID, SELFPAY ==
--- NOTE | 2024-06-05 10:11 | MHC.OFFVIS ---
Vital Signs 06/05/24 10:17 Height 5 ft 6 in Weight 160 lb BMI 25.8 Intake Visit Reasons: Inj- LT shoulder inj Intake Note: Jose is a 73 year old male who presents today for a left shoulder steroid injection. Patient reports he has constant daily pain in his left shoulder. Patient confirmed he is here for an injection. 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 He is here today for steroid injection, left shoulder subluxation. Reported worsening contraction right hand. This is been brought to my attention even before. Plan for Botox injection to include right hand. Next injection 06/25/24. [facility] Medical History (Updated 05/07/24 @ 13:26 by Jolynn Rodriguez MD) Spastic hemiparesis of left dominant side Spastic hemiplegia affecting right dominant side Spastic hemiparesis affecting dominant side Contracture, left hand Bilateral knee contractures Elevated PSA Insomnia Fibromyalgia GERD (gastroesophageal reflux disease) Hypovitaminosis D Lumbar degenerative disc disease Surgical History History of prostate surgery History of shoulder surgery History of laminectomy Family History Father Diabetes Hypertension Liver cancer Mother Diabetes Hypertension Stroke Other Substance use disorder Social History Housing: House Alcohol intake: current Alcohol intake frequency: a few times a week Alcohol type: beer and hard liquor Patient Tobacco Use Status: Former Tobacco user Cigarettes Per Day: 3 e-Cigarette/Vaping Use: Never Used Second Hand Smoke Exposure: No Advance Directives Date on File: 09/06/22 service: No Current occupational status: disabled Cognitive needs: Yes (cane) Hearing needs: No Vision needs: Yes (reading glasses) Physical Exam Vital Signs: BMI result Body Mass Index 25.8 Office Procedures Joint Injection/Aspiration Joint Injection/Aspiration Details: Consent was obtained. The distal, lateral, and posterior edges of the left acromion are palpated. Area is cleansed with betadine solution. A 27 gauge needle is inserted just inferior to the posterolateral edge of the acromion. The needle is directed toward the opposite nipple. A solution containing 40 mg Kenalog and 3 ml of 2% Lidocaine is injected. Patient tolerated procedure well without complications. Post-injection instructions given. Primary Site: left shoulder Injected: 40 mg of, Kenalog and with 3 mL of (2% lidocaine) Coding 81870 - Large joint Procedure code (CPT) selection complete Assessment & Plan Assessment & Plan (1) Spastic hemiparesis of left dominant side: Code(s): G81.12 - Spastic hemiplegia affecting left dominant side Category: Medical (2) Shoulder subluxation, left: Code(s): S43.002A - Unspecified subluxation of left shoulder joint, initial encounter Category: Medical Qualifiers: Encounter type: initial encounter Qualified Code(s): S43.002A - Unspecified subluxation of left shoulder joint, initial encounter Plan Tolerated procedure well. Hopefully that will help the left arm/shoulder pain. Plan for next Botox on 06/25/2024. Instructions given to patient. Assessment and plan discussed with patient, and patient was agreeable. All questions were answered thoroughly. Jolynn Rodriguez MD, NELIDA Board Certified, [place] [employer] and Rehabilitation (ABPMR) Board Certified, [place] [employer] Electrodiagnostic Medicine (ABEM) Orders: Orders AMB Joint Injection/Aspiration Today G81.12 - Spastic hemiplegia affecting left dominant side, S43.002A - Unspecified subluxation of left shoulder joint, initial encounter Coding Level of Care Code Procedure Only Diagnoses Spastic hemiparesis of left dominant side G81.12 Subluxation of left shoulder joint, initial encounter S43.002A Encounter type: initial encounter CPT Codes Coding - Large joint: 33553 - Large joint ([id number])
[2024-06-05 10:17] VITALS: BMI 25.8
== END 2024-06-05 10:33 | disposition home or self-care (01) ==
PROVIDERS: PCP Internal Medicine; Visit Provider Physical Medicine & Rehabilitation
DX: G81.12 Spastic hemiplegia affecting left dominant side (principal); S43.002A Unspecified subluxation of left shoulder joint, initial encounter
CPT/HCPCS: 20610

== ENCOUNTER → 2024-06-05 10:08 | Outpatient (BNVA) | payer MEDICARE, MEDICAID, SELFPAY | PROVIDERS: PCP Internal Medicine; Visit Provider Physical Medicine & Rehabilitation | DX: S43.002A Unspecified subluxation of left shoulder joint, initial encounter (principal); G81.12 Spastic hemiplegia affecting left dominant side; X58.XXXA Exposure to other specified factors, initial encounter; Y93.9 Activity, unspecified; Y92.9 Unspecified place or not applicable; Y99.9 Unspecified external cause status | CPT/HCPCS: 20610; J2003; J3301 ==

== ENCOUNTER 2024-06-11 08:29 | Outpatient (AMB) | payer MEDICARE, MEDICAID, SELFPAY ==
--- NOTE | 2024-06-11 08:32 | A.OFFVIS_ITS ---
Intake Visit Reasons: 6m/PSA/PVR(set) Intake Note: Patient is present for follow up PSA/BPH/labs Urology Medications: terazosin, finasteride Blood Thinner: none PVR: 65ml's Coding Analyst Required: Yes Accompanied by: caregiver Allergies Penicillins Allergy (Severe, Verified 06/11/24 08:55) Rash tramadol Allergy (Unknown, Verified 06/11/24 08:55) inadequate response Medication List - Last Reconciled 06/11/24 by MAILE Mckeon-ALEJANDRA acetaminophen 325 mg PO TID PRN amlodipine 5 mg PO DAILY baclofen mg PO baclofen 10 mg PO TID buspirone 1 tab PO TID cholecalciferol (vitamin D3) (Vitamin D3) 25 mcg PO DAILY 90 days diclofenac sodium 1% 1 ea topical QID docusate sodium (Colace) 100 mg PO BID duloxetine 30 mg PO BID finasteride 5 mg PO DAILY 90 days folic acid 1 mg PO DAILY gabapentin 100 mg PO TID geriatric avucvhhv-nmig-havz 1 tab PO DAILY magnesium oxide 400 mg PO DAILY omeprazole 20 mg PO DAILY 90 days oxycodone 5 mg PO TID PRN sennosides (senna) 8.6 mg PO DAILY 90 days terazosin 8 mg PO DAILY thiamine HCl (vitamin B1) 50 mg PO DAILY trazodone 25 mg PO BEDTIME PRN zolpidem 1 tab PO BEDTIME PRN HPI Comments Details: Jose is a pleasant 73 year old Guamanian-speaking male patient Dr. Mendez who was accompanied by one of the CNAs at [facility] where the patient resides. He has a PMH of GERD, BPH and polyarthralgias secondary to fibromyalgia. He presents to the office today for a follow up of his elevated PSA and lower urinary tract symptoms. Recent PSA results reviewed with the patient today as noted and trended below. Previous workup has included a retroperitoneal ultrasound noting bilateral kidneys with no calculi, lesions, and or hydronephrosis noted. The bladder is partially distended. There is notable focal thickening along the posterior wall of the bladder. The prostate gland is enlarged measuring approximately 55 mL. PSAs: 09/11 7.2, 6.1, 03/11 5.5, 06/11 3.7 PSA free 19%, 10/13 2.7, 06/12 2.2 In review of patient's MAR it appears patient is compliant with terazosin 8 mg at bedtime and finasteride 5 mg daily. When asked he does report episodes of urinary urgency and frequency after administration and consumption of his d iuretic however he is able to make it to the bathroom and is not having incontinent episodes. Patient currently denies any bothersome urinary issues or concerns at this time. Unable to obtain urine for urinalysis however PVR 65mL. Patient discusses at length his arthritis and arthritic/fibromyalgia pain he experiences to his extremities. He discusses being compliant with therapy that is being provided and given at the long-term. He discusses his upcoming appointment for a potential hernia repair. When asked patient denies urinary urgency, urinary frequency, incontinence, nocturia, hematuria, dysuria, foul smelling urine, changes to urinary stream, flank pain, fever, and or chills. Patient otherwise denies any issues or concerns at this time. [facility] Medical History Spastic hemiparesis of left dominant side Spastic hemiplegia affecting right dominant side Spastic hemiparesis affecting dominant side Contracture, left hand Bilateral knee contractures Elevated PSA Insomnia Fibromyalgia GERD (gastroesophageal reflux disease) Hypovitaminosis D Lumbar degenerative disc disease Surgical History History of prostate surgery History of shoulder surgery History of laminectomy Family History Father Diabetes Hypertension Liver cancer Mother Diabetes Hypertension Stroke Other Substance use disorder Social History Housing: House Alcohol intake: current Alcohol intake frequency: a few times a week Alcohol type: beer and hard liquor Patient Tobacco Use Status: Former Tobacco user Cigarettes Per Day: 3 e-Cigarette/Vaping Use: Never Used Second Hand Smoke Exposure: No Advance Directives Date on File: 09/06/22 service: No Current occupational status: disabled Cognitive needs: Yes (cane) Hearing needs: No Vision needs: Yes (reading glasses) Review of Systems Const Reports as per HPI Eyes Reports no additional complaints ENT Reports no additional complaints Card Reports no additional complaints Resp Reports no additional complaints GI Reports as per HPI Reports as per [facility] Musc Reports as per HPI Neuro Reports as per HPI Psych Reports no additional complaints Endo Reports no additional complaints Seven/Lymph Reports no additional complaints Physical Exam Const General: cooperative, comfortable, no acute distress, well developed, alert and awake Orientation/consciousness: patient oriented x3 Limitations: wheelchair HEENT Head: Yes normal to inspection, Yes normocephalic and Yes atraumatic Ears: hearing grossly normal bilaterally Eyes General: appearance normal, both eyes and all related structures Neck Neck: Yes normal visual inspection and Yes trachea midline Chest Chest palpation & inspection: normal inspection of the chest Resp Effort & Inspection: normal respiratory effort and able to speak in complete sentences Cardio Rate: regular rate GI Inspection: Yes normal to inspection General: Yes no CVA tenderness Back/Spine/Pelvis Back: no CVA tenderness Skin General skin exam: no rashes or lesions noted Neuro General: patient oriented x3 Extrem General: Yes normal to inspection Psych Appearance: grossly normal and well kempt Mental Status: mental status grossly normal Speech and movement: Normal speech and movement present and Clear speech present Affect: normal affect Attitude: cooperative Thought process: Normal thought process present Thought content: Normal thought content present Insight: Fair insight present (Psych) Judgement: Fair judgement present (Psych) Office Procedures Post Void Residual Post Residual Void Post Void Residual (PVR): [id number] Void Residual by ultrasound Assessment & Plan Assessment & Plan (1) Enlarged prostate with lower urinary tract symptoms (LUTS): Code(s): N40.1 - Benign prostatic hyperplasia with lower urinary tract symptoms Category: Medical (2) Renal cyst: Code(s): N28.1 - Cyst of kidney, acquired Category: Medical (3) Elevated PSA: Code(s): R97.20 - Elevated prostate specific antigen [PSA] Category: Medical Plan Unable to obtain urine for urinalysis however PVR 65mL. Recent PSA results reviewed with the patient today; as noted above; trending down Patient denies any bothersome urinary issues or concerns at this time. Continue terazosin 8 mg at bedtime and 5 mg of finasteride daily. Will obtain PSA in 6 months. Follow-up in 6 months with PVR and lab to be completed prior; or sooner with any issues, concerns, and or questions. Orders: Orders Prostate Specific Antigen 6 Months N40.1 - Benign prostatic hyperplasia with lower urinary tract symptoms, R97.20 - Elevated prostate specific antigen [PSA] AMB Post Void Residual by ultrasound Today N40.1 - Benign prostatic hyperplasia with lower urinary tract symptoms Patient Instructions: The patient had an opportunity to ask questions regarding the treatment plan. All questions were answered. Physical exam, labs, and imaging were discussed and reviewed in detail. As well as risks, benefits, and discussion of treatment choices. No major barriers to understanding were identified. The patient expressed understanding and agreement with the above treatment plan. The patient was made aware they should contact our office by phone for worsening of their current condition, the appearance of new symptoms, or with any questions or concerns. Compliance is encouraged with any medications and follow up testing that is ordered. It is a privilege to be allowed the opportunity to participate in? your urological care.? Again, if you have any questions or concerns If you have any questions or concerns please do not hesitate to contact me. The office is [phone]. This note is constructed using voice recognition software. While every effort has been made to ensure accuracy business test analyst errors may have been included. Yours sincerely, NEW Mckeon Coding Level of Care Code Est Pt Level 3 (18643) Complex EM visit Add On G2211 Diagnoses Enlarged prostate with lower urinary tract symptoms (LUTS) N40.1 Renal cyst N28.1 Elevated PSA R97.20 CPT Codes Post Residual Void - PVR CPT Code: 10854-Ysqb Void Residual by ultrasound ([id number])
== END 2024-06-11 08:55 | disposition home or self-care (01) ==
PROVIDERS: PCP Internal Medicine; Visit Provider Nurse Practitioner Family
DX: N40.1 Benign prostatic hyperplasia with lower urinary tract symptoms (principal); N28.1 Cyst of kidney, acquired; R97.20 Elevated prostate specific antigen [PSA]
CPT/HCPCS: 99213; G2211

== ENCOUNTER → 2024-06-11 08:29 | Outpatient (BNVA) | payer MEDICARE, MEDICAID, SELFPAY | PROVIDERS: PCP Internal Medicine; Visit Provider Nurse Practitioner Family | DX: N40.1 Benign prostatic hyperplasia with lower urinary tract symptoms (principal); N28.1 Cyst of kidney, acquired; R97.20 Elevated prostate specific antigen [PSA] | CPT/HCPCS: 51798; 99212 ==

== ENCOUNTER 2024-06-25 12:53 | Outpatient (REF) | payer MEDICARE, MEDICAID, SELFPAY ==
--- NOTE | 2024-06-25 12:57 | EMG_ITS ---
PROCEDURE PERFORMED: Botulinum toxin chemodenervation DIAGNOSIS: Spastic hemiparesis right, spastic paraparesis affecting both legs ICD10: G81.11, G81.14 INDICATION: spastic muscles PREVIOUS TREATMENT AND RESPONSE: Oral antispasticity medications and physical therapy without response Last injection 03/25/24, 01/01/24 TOXIN USED: Botox PROCEDURE: The procedure was explained to the patient/caregiver, and informed consent was obtained. The patient laid down on bed. Upper lower extremities were cleansed with betadine in the usual sterile manner. A 20 gauge needle electrode was used. Muscle Units per site Number of sites Units per muscle Right FDP 50 1 50 Right FDS 50 1 50 Left FDP 50 1 50 Left FDS 50 1 50 Left medial hamstrings 50 2 100 Left lateral hamstrings 50 2 100 Right medial hamstrings 50 3 150 Right lateral hamstrings 50 3 150 EMG-guidance was used during the injection. A total of 700 units injected. 0 units wastage. Vial size: 100 units per vial, 7 vials Dilution: 100 units per 1 ml of preservative free saline dilution used for upper extremity; 100 units per 2 mL dilution used for lower extremity The patient tolerated the procedure well without complications. The patient was observed for 30 minutes, before being discharged with post procedure instructions. CODING: CPT code: 81646 1 ext, 1-4 muscles 59835 each add?l limb, 1-4 muscles x3 Guidance code: 93048 EMG guidance for chemodenervation J code: Botox J0585 [facility] code: 3177-4746-02 Lot #: [id number], [id number] Expiration date: , [facility]
== END 2024-06-25 12:54 | disposition home or self-care (01) ==
LOC: HO.NEURO 12:53
PROVIDERS: PCP Internal Medicine; Visit Provider Physical Medicine & Rehabilitation
DX: G81.11 Spastic hemiplegia affecting right dominant side (principal); R25.2 Cramp and spasm; Z86.73 Personal history of transient ischemic attack (TIA), and cerebral infarction without residual deficits
CPT/HCPCS: 64642; 64643; 95874; J0585

== ENCOUNTER → 2024-06-25 12:57 | Outpatient (BNV) | payer MEDICARE, MEDICAID, SELFPAY | PROVIDERS: PCP Internal Medicine; Visit Provider Physical Medicine & Rehabilitation | DX: G81.11 Spastic hemiplegia affecting right dominant side (principal); G81.14 Spastic hemiplegia affecting left nondominant side | CPT/HCPCS: 64642; 64643; 95874 ==

== ENCOUNTER 2024-07-02 08:07 | Outpatient (AMB) | payer MEDICARE, MEDICAID, SELFPAY ==
--- NOTE | 2024-07-02 08:15 | A.OFFVIS_ITS ---
Vital Signs 07/02/24 08:21 Height 5 ft 6 in Weight 160 lb 0.008 oz BMI 25.8 BP 109/59 L Blood Pressure Location Rt brachial Position Sitting Pulse 59 Intake Visit Reasons: Hernia Intake Note: This patient presents for hernia assessment. Pt c/o; reports no pain, reports umbilical region bulge. Production Expert Required: Yes Production Expert Language: Technical Solutions Director Services: Production Expert Offered & Declined Accompanied by: Other Relationship Allergies Penicillins Allergy (Severe, Verified 07/02/24 08:22) Rash tramadol Allergy (Unknown, Verified 07/02/24 08:22) inadequate response HPI Comments Details: Patient presents for evaluation of question upper abdominal wall hernia. Patient was had this several months time. He has no other GI issues or complaints. He lives in extended care facility. He has history of advanced rheumatoid arthritis and is wheelchair bound. He is otherwise tolerating a diet, having regular bowel habits. Chart was reviewed and patient evaluate [facility] Medical History Spastic hemiparesis of left dominant side Spastic hemiplegia affecting right dominant side Spastic hemiparesis affecting dominant side Contracture, left hand Bilateral knee contractures Elevated PSA Insomnia Fibromyalgia GERD (gastroesophageal reflux disease) Hypovitaminosis D Lumbar degenerative disc disease Surgical History History of prostate surgery History of shoulder surgery History of laminectomy Family History Father Diabetes Hypertension Liver cancer Mother Diabetes Hypertension Stroke Other Substance use disorder Social History Housing: House Alcohol intake: current Alcohol intake frequency: a few times a week Alcohol type: beer and hard liquor Patient Tobacco Use Status: Former Tobacco user Cigarettes Per Day: 3 e-Cigarette/Vaping Use: Never Used Second Hand Smoke Exposure: No Advance Directives Date on File: 09/06/22 service: No Current occupational status: disabled Cognitive needs: Yes (cane) Hearing needs: No Vision needs: Yes (reading glasses) Physical Exam Vital Signs: Last Vital Signs Pulse 59 07/02/24 08:21 BP 109/59 L 07/02/24 08:21 BMI result Body Mass Index 25.8 Const Other: Mohawk-speaking male wheelchair bound GI Other: Abdomen moderately corpulent, soft, benign. With Valsalva, patient has a moderately sized rectus diastasis in the upper abdomen but no ventral hernia. Bilateral groin exam grossly within normal limits. Assessment & Plan Assessment & Plan (1) Rectus diastasis: Code(s): M62.08 - Separation of muscle (nontraumatic), other site Category: Surgical Plan Discussed these findings with the patient. No surgical intervention is warranted at this time. The rectus diastasis is not at risk for incarceration. This was explained to the patient through his accompanying data coordinator. All questions answered. Patient otherwise follow-up p.r.n. Coding Level of Care Code New Pt Level 4 (98889) Diagnoses Rectus diastasis M62.08
[2024-07-02 08:21] VITALS: BP 109/59; PULSE 59; BMI 25.8
== END 2024-07-02 08:32 | disposition home or self-care (01) ==
PROVIDERS: PCP Internal Medicine; Referring Provider Internal Medicine; Visit Provider Surgery
DX: M62.08 Separation of muscle (nontraumatic), other site (principal)
CPT/HCPCS: 99204

== ENCOUNTER → 2024-07-02 08:07 | Outpatient (BNVA) | payer MEDICARE, MEDICAID, SELFPAY | PROVIDERS: PCP Internal Medicine; Referring Provider Internal Medicine; Visit Provider Surgery | DX: M62.08 Separation of muscle (nontraumatic), other site (principal); Z99.3 Dependence on wheelchair | CPT/HCPCS: 99202 ==

== ENCOUNTER 2024-08-08 09:05 | Outpatient (AMB) | payer MEDICARE, MEDICAID, SELFPAY ==
--- NOTE | 2024-08-08 09:13 | MHC.OFFVIS ---
Vital Signs 08/08/24 09:20 Height 5 ft 6 in Weight 160 lb BMI 25.8 Intake Visit Reasons: OV-Spastic hemiplegia EMG one month follow up Intake Note: Jose is a 74 year old German speaking male who presents today for his follow up visit for review of his EMG results. He is S/P left shoulder injection 06/05/24. States he feels the same. He mentioned he is also having numbness in his lower extremities. EMG done 06/25/24. Allergies Penicillins Allergy (Severe, Verified 08/08/24 09:19) Rash tramadol Allergy (Unknown, Verified 08/08/24 09:19) inadequate response Medication List - Last Reconciled 08/08/24 by Jolynn Rodriguez MD acetaminophen 325 mg PO TID PRN amlodipine 5 mg PO DAILY baclofen mg PO baclofen 10 mg PO TID buspirone 1 tab PO TID cholecalciferol (vitamin D3) (Vitamin D3) 25 mcg PO DAILY 90 days diclofenac sodium 1% 1 ea topical QID docusate sodium (Colace) 100 mg PO BID duloxetine 30 mg PO BID finasteride 5 mg PO DAILY 90 days folic acid 1 mg PO DAILY furosemide 40 mg PO DAILY gabapentin 100 mg PO TID geriatric xsvkidby-hlad-xont 1 tab PO DAILY lamotrigine mg PO magnesium oxide 400 mg PO DAILY omeprazole 20 mg PO DAILY 90 days oxycodone 5 mg PO TID PRN pregabalin 50 mg PO TID sennosides (senna) 8.6 mg PO DAILY 90 days terazosin 8 mg PO DAILY thiamine HCl (vitamin B1) 50 mg PO DAILY trazodone 25 mg PO BEDTIME PRN zolpidem 1 tab PO BEDTIME PRN HPI Comments Details: POST BOTOX FOLLOW UP: PROCEDURE PERFORMED: Botulinum toxin chemodenervation DIAGNOSIS: Spastic hemiparesis right, spastic paraparesis affecting both legs ICD10: G81.11, G81.14 INDICATION: spastic muscles PREVIOUS TREATMENT AND RESPONSE: Oral antispasticity medications and physical therapy without response Last injection , 03/25/24, 01/01/24 TOXIN USED: Botox PROCEDURE: The procedure was explained to the patient/caregiver, and informed consent was obtained. The patient laid down on bed. Upper lower extremities were cleansed with betadine in the usual sterile manner. A 20 gauge needle electrode was used. Muscle Units per site Number of sites Units per muscle Right FDP 50 1 50 Right FDS 50 1 50 Left FDP 50 1 50 Left FDS 50 1 50 Left medial hamstrings 50 2 100 Left lateral hamstrings 50 2 100 Right medial hamstrings 50 3 150 Right lateral hamstrings 50 3 150 EMG-guidance was used during the injection. A total of 700 units injected. Did not receive any notes from PT or OT this time. Patient does not seem to think that Botox are working. Fingers are stiff flexed. He has constant complaint of numbness on both arms are still there. Numbness in left leg. I did note that past cervical spine CT scan 2022 showed moderate degenerative changes, and lumbar x-ray done 08/2023 showed multilevel degenerative changes as well. He used to follow with pain management for neck pain. Medication review, medication include: Lyrica 50 mg t.i.d. Lamictal 12.5 mg at night Baclofen 15 mg t.i.d. Oxycodone 5 mg Q 8. Cymbalta 30 mg b.i.d. [facility] Medical History Spastic hemiparesis of left dominant side Spastic hemiplegia affecting right dominant side Spastic hemiparesis affecting dominant side Contracture, left hand Bilateral knee contractures Elevated PSA Insomnia Fibromyalgia GERD (gastroesophageal reflux disease) Hypovitaminosis D Lumbar degenerative disc disease Surgical History History of prostate surgery History of shoulder surgery History of laminectomy Family History Father Diabetes Hypertension Liver cancer Mother Diabetes Hypertension Stroke Other Substance use disorder Social History Housing: House Alcohol intake: current Alcohol intake frequency: a few times a week Alcohol type: beer and hard liquor Patient Tobacco Use Status: Former Tobacco user Cigarettes Per Day: 3 e-Cigarette/Vaping Use: Never Used Second Hand Smoke Exposure: No Advance Directives Date on File: 09/06/22 service: No Current occupational status: disabled Cognitive needs: Yes (cane) Hearing needs: No Vision needs: Yes (reading glasses) Physical Exam Vital Signs: BMI result Body Mass Index 25.8 EXAM ON DAY OF PROCEDURE: 01/01/2024 Deborah 3 on bilateral knee flexors Deborah 2 on left finger flexors, 3rd-4th digits, flexed at PIP and DIP joints FOLLOW UP: 01/30/2024 Left finger flexors much more open especially on DIP 3rd to 5th digits. Still very flex on PIP joints 3rd to 5th digits. Deborah improved to 2. Both knees still flex at -45 degrees extension lag. Deborah still 3 bilateral hamstrings. 05/07/2024 (post Botox injection 03/25/2024) Left knee extension lag,-15 degrees. Right knee extension lag,-45 degrees. Left hand: Flexed at MCP joints 3rd to 5th digits. No flexion on IP joints. Left 2nd digit not flexed. Today 08/08/2024 (post Botox injection 06/25/2024) Still flexed on ulnar side especially PIP and slightly on DIP joints, worse on left than right. Index fingers are straight. Still with a lot of tone on bilateral knee flexion. Left shoulder passive range of motion did not elicit any grimacing or complaints of pain. Dasilva sign negative. Assessment & Plan Assessment & Plan (1) Spastic hemiparesis of left dominant side: Code(s): G81.12 - Spastic hemiplegia affecting left dominant side Category: Medical (2) Shoulder subluxation, left: Code(s): S43.002A - Unspecified subluxation of left shoulder joint, initial encounter Category: Medical Qualifiers: Encounter type: initial encounter Qualified Code(s): S43.002A - Unspecified subluxation of left shoulder joint, initial encounter Plan Hard to tell whether botulinum toxin injection is helping. His exam today appears worse than his exam back in March. Could just be extrinsic factors such as whether? I would want to re-evaluate patient prior to next Botox injection in August. 1. Requesting for PT and OT notes. 2. Follow up with me in August to see if we should continue with botulinum toxin injections 3. If we will have injection, next injection would be 09/24/2024. Assessment and plan discussed with patient, and patient was agreeable. All questions were answered thoroughly. Total of 30 minutes spent today including chart review, results review, history taking, physical examination, discussion of assessment and plan, and coordination of care. [ ] Jolynn Rodriguez MD, NELIDA Board Certified, [place] [employer] and Rehabilitation (ABPMR) Board Certified, [place] [employer] Electrodiagnostic [employer] (ABEM) Coding Level of Care Code Est Pt Level 4 (37878) Diagnoses Spastic hemiparesis of left dominant side G81.12 Subluxation of left shoulder joint, initial encounter S43.002A Encounter type: initial encounter
[2024-08-08 09:20] VITALS: BMI 25.8
== END 2024-08-08 09:32 | disposition home or self-care (01) ==
PROVIDERS: PCP Internal Medicine; Visit Provider Physical Medicine & Rehabilitation
DX: G81.12 Spastic hemiplegia affecting left dominant side (principal); S43.002A Unspecified subluxation of left shoulder joint, initial encounter
CPT/HCPCS: 99214

== ENCOUNTER → 2024-08-08 09:05 | Outpatient (BNVA) | payer MEDICARE, MEDICAID, SELFPAY | PROVIDERS: PCP Internal Medicine; Visit Provider Physical Medicine & Rehabilitation | DX: G81.12 Spastic hemiplegia affecting left dominant side (principal); S43.002D Unspecified subluxation of left shoulder joint, subsequent encounter | CPT/HCPCS: 99212 ==

== ENCOUNTER 2024-08-25 10:53 | Outpatient (AMB) | payer MEDICARE, MEDICAID, SELFPAY ==
--- NOTE | 2024-08-25 11:16 | MHC.OFFVIS ---
Vital Signs 08/25/24 11:17 Height 5 ft 6 in Weight 195 lb BMI 31.5 BP 119/68 Blood Pressure Location Rt brachial Position Sitting Respiration 16 Pulse 107 H Pulse Source Pulse Oximeter Intake Visit Reasons: Discuss MRI Results/Follow UP Allergies Penicillins Allergy (Severe, Verified 08/25/24 11:20) Rash tramadol Allergy (Unknown, Verified 08/25/24 11:20) inadequate response Medication List - Last Reconciled 08/25/24 by Lata Zelaya LPN acetaminophen 325 mg PO TID PRN amlodipine 5 mg PO DAILY baclofen mg PO baclofen 10 mg PO TID buspirone 1 tab PO TID cholecalciferol (vitamin D3) (Vitamin D3) 25 mcg PO DAILY 90 days diclofenac sodium 1% 1 ea topical QID docusate sodium (Colace) 100 mg PO BID duloxetine 30 mg PO BID finasteride 5 mg PO DAILY 90 days folic acid 1 mg PO DAILY furosemide 40 mg PO DAILY gabapentin 100 mg PO TID geriatric [id number]-scqo-[id number] 1 tab PO DAILY lamotrigine mg PO magnesium oxide 400 mg PO DAILY omeprazole 20 mg PO DAILY 90 days oxycodone 5 mg PO TID PRN pregabalin 50 mg PO TID sennosides (senna) 8.6 mg PO DAILY 90 days terazosin 8 mg PO DAILY thiamine HCl (vitamin B1) 50 mg PO DAILY trazodone 25 mg PO BEDTIME PRN zolpidem 1 tab PO BEDTIME PRN PFSH Medical History Spastic hemiparesis of left dominant side Spastic hemiplegia affecting right dominant side Spastic hemiparesis affecting dominant side Contracture, left hand Bilateral knee contractures Elevated PSA Insomnia Fibromyalgia GERD (gastroesophageal reflux disease) Hypovitaminosis D Lumbar degenerative disc disease Surgical History History of prostate surgery History of shoulder surgery History of laminectomy Family History Father Diabetes Hypertension Liver cancer Mother Diabetes Hypertension Stroke Other Substance use disorder Social History Housing: House Alcohol intake: current Alcohol intake frequency: a few times a week Alcohol type: beer and hard liquor Patient Tobacco Use Status: Former Tobacco user Cigarettes Per Day: 3 e-Cigarette/Vaping Use: Never Used Second Hand Smoke Exposure: No Advance Directives Date on File: 09/06/22 service: No Current occupational status: disabled Cognitive needs: Yes (cane) Hearing needs: No Vision needs: Yes (reading glasses) Physical Exam Vital Signs: Last Vital Signs Pulse 107 H 08/25/24 11:17 Resp 16 08/25/24 11:17 BP 119/68 08/25/24 11:17 BMI result Body Mass Index 31.5 Coding
[2024-08-25 11:17] VITALS: BP 119/68; PULSE 107; RESP 16; BMI 31.5
[2024-08-25 11:47] VITALS: BMI 31.5
--- NOTE | 2024-08-25 11:47 | MHC.OFFVIS ---
Vital Signs 08/25/24 11:17 08/25/24 11:47 Height 5 ft 6 in Weight 195 lb BMI 31.5 31.5 BP 119/68 Blood Pressure Location Rt brachial Position Sitting Respiration 16 Pulse 107 H Pulse Source Pulse Oximeter Intake Visit Reasons: Discuss MRI Results/Follow UP Allergies Penicillins Allergy (Severe, Verified 08/25/24 11:20) Rash tramadol Allergy (Unknown, Verified 08/25/24 11:20) inadequate response Medication List - Last Reconciled 08/25/24 by Lata Zelaya LPN acetaminophen 325 mg PO TID PRN amlodipine 5 mg PO DAILY baclofen mg PO baclofen 10 mg PO TID buspirone 1 tab PO TID cholecalciferol (vitamin D3) (Vitamin D3) 25 mcg PO DAILY 90 days diclofenac sodium 1% 1 ea topical QID docusate sodium (Colace) 100 mg PO BID duloxetine 30 mg PO BID finasteride 5 mg PO DAILY 90 days folic acid 1 mg PO DAILY furosemide 40 mg PO DAILY gabapentin 100 mg PO TID geriatric jvoymicu-hbsh-prvi 1 tab PO DAILY lamotrigine mg PO magnesium oxide 400 mg PO DAILY omeprazole 20 mg PO DAILY 90 days oxycodone 5 mg PO TID PRN pregabalin 50 mg PO TID sennosides (senna) 8.6 mg PO DAILY 90 days terazosin 8 mg PO DAILY thiamine HCl (vitamin B1) 50 mg PO DAILY trazodone 25 mg PO BEDTIME PRN zolpidem 1 tab PO BEDTIME PRN HPI HPI Discuss MRI Results/Follow UP: Details: 74-year-old male with prior history of CVA, multiple upper and lower extremity contractures and degenerative spine disease presenting for follow-up after cervical and lumbar spine MRIs [facility] Medical History Spastic hemiparesis of left dominant side Spastic hemiplegia affecting right dominant side Spastic hemiparesis affecting dominant side Contracture, left hand Bilateral knee contractures Elevated PSA Insomnia Fibromyalgia GERD (gastroesophageal reflux disease) Hypovitaminosis D Lumbar degenerative disc disease Surgical History History of prostate surgery History of shoulder surgery History of laminectomy Family History Father Diabetes Hypertension Liver cancer Mother Diabetes Hypertension Stroke Other Substance use disorder Social History Housing: House Alcohol intake: current Alcohol intake frequency: a few times a week Alcohol type: beer and hard liquor Patient Tobacco Use Status: Former Tobacco user Cigarettes Per Day: 3 e-Cigarette/Vaping Use: Never Used Second Hand Smoke Exposure: No Advance Directives Date on File: 09/06/22 service: No Current occupational status: disabled Cognitive needs: Yes (cane) Hearing needs: No Vision needs: Yes (reading glasses) Physical Exam Vital Signs: Last Vital Signs Pulse 107 H 08/25/24 11:17 Resp 16 08/25/24 11:17 BP 119/68 08/25/24 11:17 BMI result Body Mass Index 31.5 Results Reviewed Results Reviewed: MRI scans limited by motion artifact. Based on the images that are available for review, he appears to have significant spinal stenosis in the cervical spine with cord compression that could explain some of the symptoms that he has been having with upper and lower extremity pain, weakness and contractures. He also appears to have lumbar spine disease, though the cervical spine issue appears to be more notable. Assessment & Plan Assessment & Plan (1) Cervical spinal cord compression: Code(s): G95.20 - Unspecified cord compression Category: Medical Plan I do not think he would benefit from interventional therapy given the severity of his disease at the both cervical and lumbar spine levels. It is also very difficult for him to position appropriately for repeat injections. I discussed this with him and that potential surgical decompression might help provide more longer-term symptomatic relief for his ongoing issues. Patient expressed understanding. I will place a referral for him to be seen by our neurosurgery colleagues to see if he might be an appropriate candidate for surgical decompression. Orders: Referrals Neurosurgery Referral G95.20 - Unspecified cord compression Coding Level of Care Code Est Pt Level 4 (61407) Diagnoses Cervical spinal cord compression G95.20
== END 2024-08-25 11:45 | disposition home or self-care (01) ==
PROVIDERS: PCP Internal Medicine; Visit Provider Internal Medicine
DX: G95.20 Unspecified cord compression (principal)
CPT/HCPCS: 99214

== ENCOUNTER → 2024-08-25 10:53 | Outpatient (BNVA) | payer MEDICARE, MEDICAID, SELFPAY | PROVIDERS: PCP Internal Medicine; Visit Provider Internal Medicine | DX: G95.20 Unspecified cord compression (principal) | CPT/HCPCS: 99212 ==

== ENCOUNTER 2024-09-01 10:41 | Outpatient (AMB) | payer MEDICARE, MEDICAID, SELFPAY ==
--- NOTE | 2024-09-01 10:50 | HO.SPINEOV ---
Vital Signs 09/01/24 11:15 Height 5 ft 6 in Weight 196 lb BMI 31.6 Intake Visit Reasons: lumbar spine stenosis Intake Note: Mr. Mcnulty is here today c/o low back pain. Diesel Automotive Technician Required: Yes Diesel Automotive Technician Name: Tablet Allergies Penicillins Allergy (Severe, Verified 09/01/24 11:15) Rash tramadol Allergy (Unknown, Verified 09/01/24 11:15) inadequate response Physical Exam Vital Signs: BMI result Body Mass Index 31.6 Assessment & Plan Assessment & Plan (1) Cervical spinal cord compression: Code(s): G95.20 - Unspecified cord compression Category: Medical Plan Dear Dr Garcia, Thank you for referring Mr Mcnulty to our office today. He is a very nice 74-year-old gentleman who lives at the [facility] for the last 2 years. He tells me with the help of cost control analyst [id number] that he is here because he has had progressive trouble walking and using his hands. His hands will go numb as well. He does have extensive arthritis in his hands and throughout his body. He is not exactly sure how he came to be at the correction specifically but he tells me he was recovering from a flare-up of some kind of arthritic condition and has just never been able to get back home. He does report 3 previous back surgeries where he had discs removed and those did seem to help him to some degree. However, he has had extreme weakness of his legs and his arms with numbness as well as difficulty using his hands. He thought it was just his hands being weak from the arthritis but it seems to be more than that. It has been steadily getting worse over time. He does have urinary urgency and frequency but no jordan incontinence. He comes today with an MRI done about a year ago or so showing extensive degenerative changes from C3-C6 with cord signal change on his MRI done at that [facility]. PMH: I did not have an extensive history on him but it looks like he has a history of stroke, spasticity, arthritis of the hands, BPH, peripheral artery disease, previous lumbar surgery as outlined above, GERD, depression. Reports a history of a right shoulder reconstruction. He does not report a history of heart disease or problems with his kidney, liver or lungs. Social hx: He does not smoke, denies any previous history with drinking or drug abuse. Medications: Folic acid, thiamine, multivitamin, diclofenac gel, senna, fleets enema, milk of magnesia, trazodone, magnesium, oxycodone, Colace, Cymbalta, Tylenol, finasteride, terazosin, omeprazole, vitamin-D, Norvasc Allergies: Penicillins and tramadol Physical exam: He is awake alert, cooperative to my exam, unable to stand up out of his wheelchair, he has contractures of his arms and legs bilaterally with increased tone consistent with his known history of spasticity. Hands are very weak with significant osteoarthritis overgrowth and deformities. He was able to squeeze my hands very weakly. Bilateral upper extremity strength is about 3/5 diffusely. He has a lot of limitations with his deltoid secondary to arthritis and previous right shoulder surgery. Distally in the lower extremities he has good strength, but proximally he has a lot of difficulty even going antigravity. He is diffusely hyperreflexic with Ramin sign in both hands. Reflexes are slightly diminished in the lower extremities however. Imaging review: There is a cervical MRI done about a year ago that has tremendous amount of motion artifact. It looks as though there could be stenosis from C3-C6 with possible cord signal change but the images are very suboptimal. Lumbar MRI with similar findings of possible stenosis at L3-4 but images are degraded. Impression: 74-year-old gentleman with possible history of previous stroke, presents 2 years living at a correction because of difficulty walking, progressive gait abnormalities, as well as symptoms of arm numbness with weakness of his hands. He had an old MRI showing possible spinal cord compression from C3-C6 but the images were severely degraded secondary to motion artifact. Similar findings in the lumbar spine. On his exam he has diffuse upper extremity weakness and hyperreflexia as well as spasticity. Certainly some of this could be left over from the old stroke that was reported in his chart but I do not have any record of exactly what kind of stroke it was and what is pre-existing deficits were. Therefore, as a matter of precaution I would like to repeat the MRI and make sure we are not dealing with a progressive myelopathy given the previous MRI findings. Once the MRI is completed I would like to see him back in the office. Thank you for allowing us to care for your patient. The total time spent with this visit with this patient was 45 minutes reviewing history, physical exam, lumbar and cervical imaging review, and implementation of treatment plan or further diagnostic testing Dong Jones MD,PhD [facility] Orders: Orders MR cervical spine wo con Today G95.20 - Unspecified cord compression Coding Level of Care Code New Pt Level 4 (24587) Diagnoses Cervical spinal cord compression G95.20
[2024-09-01 11:15] VITALS: BMI 31.6
== END 2024-09-01 12:06 | disposition home or self-care (01) ==
PROVIDERS: PCP Internal Medicine; Referring Provider Family Medicine Geriatric Medicine; Visit Provider Physician Assistant
DX: G95.20 Unspecified cord compression (principal)
CPT/HCPCS: 99204

== ENCOUNTER → 2024-09-01 10:41 | Outpatient (BNVA) | payer MEDICARE, MEDICAID, SELFPAY | PROVIDERS: PCP Internal Medicine; Referring Provider Family Medicine Geriatric Medicine; Visit Provider Physician Assistant | DX: G95.20 Unspecified cord compression (principal) | CPT/HCPCS: 99202 ==

== ENCOUNTER → 2024-09-19 11:01 | Outpatient (BNVA) | payer MEDICARE, MEDICAID, SELFPAY | PROVIDERS: PCP Internal Medicine; Visit Provider Physical Medicine & Rehabilitation | DX: I69.351 Hemiplegia and hemiparesis following cerebral infarction affecting right dominant side (principal) | CPT/HCPCS: 99212 ==

== ENCOUNTER 2024-09-22 11:42 | Outpatient (AMB) | payer MEDICARE, MEDICAID, SELFPAY ==
--- NOTE | 2024-09-22 11:44 | A.SPINEOV_ITS ---
Intake Visit Reasons: MRI f/up Intake Note: Mr. Mcnulty is here today to F/u on the results to his MRI. Overlock Elastic Attacher Required: Yes Overlock Elastic Attacher Name: Tablet Allergies Penicillins Allergy (Severe, Verified 09/22/24 11:49) Rash tramadol Allergy (Unknown, Verified 09/22/24 11:49) inadequate response Assessment & Plan Assessment & Plan (1) Cervical spinal cord compression: Code(s): G95.20 - Unspecified cord compression Category: Medical Plan Mr Mcnulty is here in follow-up. His new service MRI done at the [facility] shows more clearly that he has severe stenosis at C4-5 amongst other degenerative changes. Given his myelopathic symptoms, I think Dr. Jones will offer him surgery. He has severe collapse of the disc and he may already be mostly fused in the front. He has an old CT scan done at [place] showing significant overgrowth of osteophytes anteriorly. Once I have a chance to review with Dr. Jones I will get back to the patient and his [facility] with a final plan. Overlock Elastic Attacher number [id number] used for this visit. Total amount of time spent in this visit was 20 minutes in discussion of symptoms, cervical imaging results and subsequent plan of care Dong Jones MD,PhD [facility] Coding Level of Care Code Est Pt Level 3 (51492) Diagnoses Cervical spinal cord compression G95.20
--- OUTSIDE RECORDS SUMMARY | 2024-09-22 13:02 | XMS_ITS | Encounter Summary ---
Author Organization [facility] Address [address] [place] [address] Care Team Providers Care Donor Specialist Name Role Phone Farideh Garcia MD Primary Care Provider [phone] Encounter Details Date Type Department Care Team (Late st Contact Info) Description 09/16/2024 Lab Requisition [facility] - Main Lab [address] [facility] [place] [address] Farideh Garcia MD [address] [place] [address] Shortness of breath; Acute cough Social History Tobacco Use Types Packs/Day Years Used Date Smoking Tobacco: Never Assessed Sex and Gender Information Value Date Recorded Sex Assigned at Not on file Gender Identity Not on file Sexual Orientation Not on file documented as of this encounter Plan of Treatment Not on file documented as of this encounter Procedures Procedure Name Priority Date/Time Associated Diagnosis Comments [id number], RSV, FLU A AND B QUALITATIVE RT-PCR, LOCAL REFERENCE LAB Routine 09/15/2024 12:00 PM EST Shortness of breath Acute cough documented in this encounter Results * [id number], RSV, Influenza A and B qualitative RT-PCR (09/15/2024 12:00 PM EST) SARS COV-2 Not Detected Not Detected LAB MOLECULAR DIAGNOSTICS METHOD 09/16/2024 12:35 PM EST [facility] Comment: Disclaimer: The manner in which this information is used to guide patient care is the responsibility of the healthcare provider. Testing was performed using the Parad[employer] m SARS-CoV-2 test. This test has been authorized by FDA under an Emergency Use Authorization (EUA). This test is only authorized for the duration of time the declaration that circumstances exist justifying the authorization of the emergency use of in vitro diagnostic tests for detection of SARS-CoV-2 virus and/or diagnosis of COVID-19 infection under section 564(b)(1) of the Act, 21 U.S.C. 360bbb- 3(b)(1), unless the authorization is terminated or revoked sooner. Fact sheet for Healthcare Providers can be found at: https://www.fda.gov/media/022948/download Fact sheet for Patients can be found at: https://www.fda.gov/media/125198/download Influenza A PCR Not Detected Not Detected LAB MOLECULAR DIAGNOSTICS METHOD 09/16/2024 12:[address] [facility] Influenza B PCR Not Detected Not Detected LAB MOLECULAR DIAGNOSTICS METHOD 09/16/2024 12:[address] [facility] RSV PCR Not Detected Not Detected LAB MOLECULAR DIAGNOSTICS METHOD 09/16/2024 12:[address] [facility] Swab Nasopharyngeal structure / Unknown 09/15/2024 12:00 PM EST 09/16/2024 9:43 AM EST Farideh Garcia MD LAB MICROBIOLOGY - G ENERAL ORDERABLES [facility] [address] [phone] documented in this encounter Visit Diagnoses Diagnosis Shortness of breath Acute cough documented in this encounter Additional Health Concerns Infection Onset Date Last Indicated Resolved Time Respiratory Rule-Out 09/16/2024 09/15/2024 025 12:35 PM EST documented as of this encounter Care Teams Donor Specialist Relationship Specialty Start Date End Date Farideh Garcia MD [address] [place] [address] [address] [place] [address] PCP - General Geriatric Medicine 09/16/24 documented as of this encounter
--- OUTSIDE RECORDS SUMMARY | 2024-09-22 13:02 | XMS_ITS | Clinical Summary ---
Author Organization [address] [facility] Address [address] [place] [address] Phone Care Team Providers Care Supply Chain Generalist Name Role Phone Farideh Garcia MD Primary Care Provider [phone] Encounters Date Type Department Care Team Description 09/16/2024 Lab Requisition [facility] [address] [place] [address] Farideh Garcia MD Shortness of breath; Acute cough 08/21/2024 Lab Requisition [facility] [address] [place] [address] Kris Osorio MD Essential (primary) hypertension from Last 3 Months Social History Tobacco Use Types Packs/Day Years Used Date Smoking Tobacco: Never Assessed Sex and Gender Information Value Date Recorded Sex Assigned at Not on file Gender Identity Not on file Sexual Orientation Not on file Plan of Treatment Health Maintenance Due Date Last Done Comments DTaP,Tdap,and Td Vaccines (1 - Tdap) 1967 Zoster Vaccines (1 of 2) 1998 Pneumococcal Vaccine: 65+ Ye ars (1 of 1 - PCV) 2013 RSV Immunization Patients 60 + Years Old (1 - 1-dose 75+ series) 2023 Cholesterol Screening (Lipid Panel) 09/14/2023 Depression Screening 09/14/2023 Falls Risk Assessment 09/14/2023 Hepatitis C Screening 09/14/2023 Medicare Annual Wellness Visit 09/14/2023 Social Influencers of Health Screening 09/14/2023 COVID-19 Vaccine (1 - 2023-2 5 season) 2024 Influenza Vaccine (#1) 2024 Hypertension/CHF/CAD Annual BMP Blood Test 08/22/2025 08/22/2024 HIB Vaccines Aged Out No longer eligi ble based on patient's age to complete this topic HPV Vaccines Aged Out No longer eligi ble based on patient's age to complete this topic Hepatitis A Vaccines Aged Out No long er eligible based on patient's age to complete this topic Hepatitis B Vaccines Aged Out No long er eligible based on patient's age to complete this topic IPV Vaccines Aged Out No longer eligi ble based on patient's age to complete this topic MMR Vaccines Aged Out No longer eligi ble based on patient's age to complete this topic Meningococcal ACWY Vaccine Aged Out N o longer eligible based on patient's age to complete this topic RSV Immunization Patients Un gracy 20 months Aged Out No longer eligible b ased on patient's age to complete this topic Varicella Vaccines Aged Out No longer eligible based on patient's age to complete this topic Procedures Procedure Name Priority Date/Time Associated Diagnosis Comments [id number], RSV, FLU A AND B QUALITATIVE RT-PCR, LOCAL REFERENCE LAB Routine 09/15/2024 12:00 PM EST Shortness of breath Acute cough BASIC METABOLIC PANEL Routine 08/22/2024 5:29 AM EST Essential (primary) hypertension from Last 3 Months Results * [id number], RSV, Influenza A and B qualitative RT-PCR (09/15/2024 12:00 PM EST) SARS COV-2 Not Detected Not Detected LAB MOLECULAR DIAGNOSTICS METHOD 09/16/2024 12:35 PM EST [facility] Comment: Disclaimer: The manner in which this information is used to guide patient care is the responsibility of the healthcare provider. Testing was performed using the [employer] m SARS-CoV-2 test. This test has been [...] for Healthcare Providers can be found at: https://www.fda.gov/media/373840/download Fact sheet for Patients can be found at: https://www.fda.gov/media/715564/download Influenza A PCR Not Detected Not Detected LAB MOLECULAR DIAGNOSTICS METHOD 09/16/2024 12:35 PM EST [facility] Influenza B PCR Not Detected Not Detected LAB MOLECULAR DIAGNOSTICS METHOD 09/16/2024 12:35 PM [facility] RSV PCR Not Detected Not Detected LAB MOLECULAR DIAGNOSTICS METHOD 09/16/2024 12:35 PM [facility] Swab Nasopharyngeal structure / Unknown 09/15/2024 12:00 PM EST 09/16/2024 9:43 AM EST Farideh Garcia MD LAB MICROBIOLOGY - G ENERAL ORDERABLES [facility] [address] [place] [address], * (ABNORMAL) Basic metabolic panel (08/22/2024 5:29 AM EST) Sodium 142 133 - 145 mmol/L LAB CHEMISTRY METHOD 08/22/2024 10:42 AM [facility] Potassium 3.5 3.5 - 5.5 mmol/L LAB CHEMISTRY METHOD 08/22/2024 10:42 AM [facility] Chloride 105 96 - 110 mmol/L LAB CHEMISTRY METHOD 08/22/2024 10:42 AM [facility] CO2 31 21 - 32 mmol/L LAB CHEMISTRY METHOD 08/22/2024 10:42 AM [facility] Anion Gap 6 3 - 11 LAB CHEMISTRY METHOD 08/22/2024 10:42 AM [facility] Glucose 124(H) 70 - 100 mg/dL LAB CHEMISTRY METHOD 08/22/2024 10:42 AM [facility] BUN 16 5 - 25 mg/dL LAB CHEMISTRY METHOD 08/22/2024 10:42 AM [facility] Creatinine 0.61(L) 0.70 - 1.30 mg/dL LAB CHEMISTRY METHOD 08/22/2024 10:42 AM [facility] eGFR 100 >=60 mL/min/1. 73m2 LAB CHEMISTRY METHOD 08/22/2024 10:42 AM [facility] Comment:Calculation based on the??Chronic Kidney Disease Epidemiology Collaboration (CKD-EPI) equation refit??without adjustment for race. BUN/Creatinine Ratio 26.2 LAB CHEMISTRY METHOD 08/22/2024 10:42 AM [facility] Calcium 8.4(L) 8.5 - 10.5 mg/dL LAB CHEMISTRY METHOD 08/22/2024 10:42 AM [facility] Blood Venous blood specimen / Unknown Venipuncture / Unknown 08/22/2024 5:29 AM EST 08/22/2024 10:05 AM EST Kris Osorio MD LAB BLOOD ORDERABLES [facility] [address] [place] [address], from Last 3 Months Care Teams Supply Chain Generalist Relationship Specialty Start Date End Date Farideh Garcia MD [address] [facility] [address] [place] [address] PCP - General Geriatric Medicine 09/16/24
--- OUTSIDE RECORDS SUMMARY | 2024-09-22 13:02 | XMS_ITS | Encounter Summary ---
Author Organization [employer] [facility] Address [address] [place] [address] Care Team Providers Care Batter Scaler Name Role Phone Farideh Garcia MD Primary Care Provider [phone] Encounter Details Date Type Department Care Team (Late st Contact Info) Description 08/21/2024 Lab Requisition [facility] - Main Lab [address] [place] [address] Kris Osorio MD [address] [place] [id number] Essential (primary) hypertension Social History Tobacco Use Types Packs/Day Years Used Date Smoking Tobacco: Never Assessed Sex and Gender Information Value Date Recorded Sex Assigned at Not on file Gender Identity Not on file Sexual Orientation Not on file documented as of this encounter Plan of Treatment Not on file documented as of this encounter Procedures Procedure Name Priority Date/Time Associated Diagnosis Comments BASIC METABOLIC PANEL Routine 08/22/2024 5:29 AM EST Essential (primary) hypertension documented in this encounter Results * (ABNORMAL) Basic metabolic panel (08/22/2024 5:29 AM EST) Sodium 142 133 - 145 mmol/L LAB CHEMISTRY METHOD 08/22/2024 10:42 AM EST [facility] Potassium 3.5 3.5 - 5.5 mmol/L LAB CHEMISTRY METHOD 08/22/2024 10:42 AM EST [facility] Chloride 105 96 - 110 mmol/L LAB CHEMISTRY METHOD 08/22/2024 10:42 AM EST [facility] CO2 31 21 - 32 mmol/L LAB CHEMISTRY METHOD 08/22/2024 10:42 AM EST [facility] Anion Gap 6 3 - 11 LAB CHEMISTRY METHOD 08/22/2024 10:42 AM [facility] Glucose 124(H) 70 - 100 mg/dL LAB CHEMISTRY METHOD 08/22/2024 10:42 AM [facility] BUN 16 5 - 25 mg/dL LAB CHEMISTRY METHOD 08/22/2024 10:42 AM [facility] Creatinine 0.61(L) 0.70 - 1.30 mg/dL LAB CHEMISTRY METHOD 08/22/2024 10:42 AM [facility] eGFR 100 >=60 mL/min/1. 73m2 LAB CHEMISTRY METHOD 08/22/2024 10:42 AM [facility] Comment:Calculation based on the??Chronic Kidney Disease Epidemiology Collaboration (CKD-EPI) equation refit??without adjustment for race. BUN/Creatinine Ratio 26.2 LAB CHEMISTRY METHOD 08/22/2024 10:42 AM [facility] Calcium 8.4(L) 8.5 - 10.5 mg/dL LAB CHEMISTRY METHOD 08/22/2024 10:42 AM [facility] Blood Venous blood specimen / Unknown Venipuncture / Unknown 08/22/2024 5:29 AM EST 08/22/2024 10:05 AM EST Kris Osorio MD LAB BLOOD ORDERABLES [facility] [address] [place], [place] [address] [phone] documented in this encounter Visit Diagnoses Diagnosis Essential (primary) hypertension Unspecified essential hypertension documented in this encounter Additional Health Concerns Infection Onset Date Last Indicated Resolved Time Respiratory Rule-Out 09/16/2024 09/15/2024 025 12:35 PM EST documented as of this encounter Care Teams Batter Scaler Relationship Specialty Start Date End Date Farideh Garcia MD [address] [facility] [address] [place] [address] PCP - General Geriatric Medicine 09/16/24 documented as of this encounter
== END 2024-09-22 12:33 | disposition home or self-care (01) ==
PROVIDERS: PCP Internal Medicine; Visit Provider Physician Assistant
DX: G95.20 Unspecified cord compression (principal)
CPT/HCPCS: 99213

== ENCOUNTER → 2024-09-22 11:42 | Outpatient (BNVA) | payer MEDICARE, MEDICAID, SELFPAY | PROVIDERS: PCP Internal Medicine; Visit Provider Physician Assistant | DX: G95.20 Unspecified cord compression (principal) | CPT/HCPCS: 99212 ==

== ENCOUNTER → 2024-09-24 12:44 | Outpatient (REF) | payer MEDICARE, MEDICAID, SELFPAY ==
--- NOTE | 2024-09-24 12:58 | EMG_ITS ---
PROCEDURE PERFORMED: Botulinum toxin chemodenervation DIAGNOSIS: spastic hemiparesis CVA late effects ICD10: G81.11 affecting right dominant side G81.14 affecting left nondominant side INDICATION: spastic muscles PREVIOUS TREATMENT AND RESPONSE: Last injection 06/25/24, 03/25/24, 01/01/24 EXAM ON DAY OF PROCEDURE: Patient can now better extend both knees, left knee -10 degrees extension lag, right knee -20 extension lag. Much less tightness on finger flexors/IP joints bilateral, left was always worse than right TOXIN USED: Botox PROCEDURE: The procedure was explained to the patient/caregiver, and informed consent was obtained. The patient sat on wheelchair. Extremities were cleansed with betadine in the usual sterile manner. A 28 gauge needle electrode was used. Muscle Units per site Number of sites Units per muscle Right FDP 50 1 50 Right FDS 50 1 50 Left FDP 50 1 50 Left FDS 50 1 50 Left medial hamstrings 50 2 100 Left lateral hamstrings 50 2 100 Right medial hamstrings 50 2 100 Right lateral hamstrings 50 2 100 EMG-guidance was used during the injection. A total of 600 units injected. 0 units wastage. Vial size: 200 units per vial Dilution: 100 units per 1 ml of preservative free saline for upper extremity; 100 units per 2 ml of preservative free saline for lower extremity The patient tolerated the procedure well without complications. The patient was observed for 30 minutes, before being discharged with post procedure instructions. CODING: CPT code: 99015 1 ext, 1-4 muscles 67795 each add?l limb, 1-4 muscles x3 Guidance code: 46321 EMG guidance for chemodenervation J code: Botox [id number] [facility] code: 5507-6287-50 Lot #: [id number] Expiration date: [facility]
--- OUTSIDE RECORDS SUMMARY | 2024-09-24 14:06 | XMS_ITS | Clinical Summary ---
Author Organization 299 [facility] Address [address] [place] [address] Phone Care Team Providers Care Industrial Design Engineer Name Role Phone Farideh Garcia MD Primary Care Provider [phone] Encounters Date Type Department Care Team Description 09/23/2024 Lab Requisition [facility] Lab [address] [place] [phone] Kris Osorio MD Benign prostatic hyperplasia without lower urinary tract symptoms; Vitamin D deficiency, unspecified; Essential (primary) hypertension 09/16/2024 Lab Requisition [facility] Lab [address] [place] [phone] Farideh Garcia MD Shortness of breath; Acute cough 08/21/2024 Lab Requisition [facility] Lab [address] [place] [phone] Kris Osorio MD Essential (primary) hypertension from [...] (1 of 2) 1998 Pneumococcal Vaccine: 65+ Years (1 of 1 - PCV) 2013 RSV Immunization Patients 60 + Years Old (1 - 1-dose 75+ series) 2023 Cholesterol Screening (Lipid Panel) 09/14/2023 Depression Screening 09/14/2023 Falls Risk Assessment 09/14/2023 Hepatitis C Screening 09/14/2023 Medicare Annual Wellness Visit 09/14/2023 Social Influencers of Health Screening 09/14/2023 COVID-19 Vaccine ( - 2023-2 5 season) 2024 Influenza Vaccine (#1) 2024 Hypertension/CHF/CAD Annual BMP Blood Test 09/24/2025 09/24/2024, 08/22/2024 HIB Vaccines Aged Out No longer [...] to complete this topic RSV Immunization Patients Under 20 months Aged Out No longer eligible b ased on patient's age to complete this topic Varicella Vaccines Aged Out No longer eligible based on patient's age to complete this topic Procedures Procedure Name Priority Date/Time Associated Diagnosis Comments VITAMIN D 25 HYDROXY Routine 09/24/2024 6:55 AM EST Benign prostatic hyperplasia without lower urinary tract symptoms Vitamin D deficiency, unspecified Essential (primary) hypertension MAGNESIUM Routine 09/24/2024 6:55 AM EST Benign prostatic hyperplasia without lower urinary tract symptoms Vitamin D deficiency, unspecified Essential (primary) hypertension FOLATE Routine 09/24/2024 6:55 AM EST Benign prostatic hyperplasia without lower urinary tract symptoms Vitamin D deficiency, unspecified Essential (primary) hypertension COMPREHENSIVE METABOLIC PANEL Routine 09/24/2024 6:55 AM EST Benign prostatic hyperplasia without lower urinary tract symptoms Vitamin D deficiency, unspecified Essential (primary) hypertension COMPLETE BLOOD COUNT Routine 09/24/2024 6:55 AM EST Benign prostatic hyperplasia without lower urinary tract symptoms Vitamin D deficiency, unspecified Essential (primary) hypertension [id number], RSV, FLU A AND B QUALITATIVE RT-PCR, LOCAL REFERENCE LAB Routine 09/15/2024 12:00 PM EST Shortness of breath Acute cough BASIC METABOLIC PANEL Routine 08/22/2024 5:29 AM EST Essential (primary) hypertension from Last 3 Months Results * (ABNORMAL) Vitamin D 25 hydroxy (09/24/2024 6:55 AM EST) Pathologist [facility] Vit D, 25-Hydroxy 100.9(H) 30.0 - 80.0 ng/mL LAB CHEMISTRY METHOD 09/24/2024 11:13 AM EST [facility] Blood Venous blood specimen / Unknown Venipuncture / Unknown 09/24/2024 6:55 AM EST 09/24/2024 10:15 AM EST Kris Osorio MD LAB BLOOD ORDERABLES Performing Organization Address City/State/[facility] Co de Phone Number [facility] [address] [place] [address], * (ABNORMAL) Complete blood count (09/24/2024 6:55 AM EST) [facility] WBC 8.9 4.8 - 10.8 K/mcL LAB HEMETOLOGY METHOD 09/24/2024 10:37 AM [facility] RBC 4.60 4.50 - 5.50 M/mcL LAB HEMETOLOGY METHOD 09/24/2024 10:37 AM [facility] Hemoglobin 12.3(L) 13.5 - 17.5 g/dL LAB HEMETOLOGY METHOD 09/24/2024 10:37 AM [facility] Hematocrit 38.7(L) 42.0 - 54.0 % LAB HEMETOLOGY METHOD 09/24/2024 10:37 AM [facility] MCV 84.7 79.0 - 98.0 FL LAB HEMETOLOGY METHOD 09/24/2024 10:37 AM [facility] MCH 26.9(L) 27.0 - 32.0 pcg LAB HEMETOLOGY METHOD 09/24/2024 10:37 AM EST [facility] MCHC 31.8(L) 32.0 - 37.0 g/dL LAB HEMETOLOGY METHOD 09/24/2024 10:37 AM [facility] RDW 13.7 11.0 - 15.0 % LAB HEMETOLOGY METHOD 09/24/2024 10:37 AM EST [facility] Platelets 194 130 - 400 K/mcL LAB HEMETOLOGY METHOD 09/24/2024 10:37 AM [facility] MPV 10.3 7.0 - 11.0 FL LAB HEMETOLOGY METHOD 09/24/2024 10:37 AM [facility] NRBC 0.2 <1.0 % LAB HEMETOLOGY METHOD 09/24/2024 10:37 AM [facility] NRBC Absolute 0.02 <0.10 K/mcL LAB HEMETOLOGY METHOD 09/24/2024 10:37 AM [facility] Blood Venous blood specimen / Unknown Venipuncture / Unknown 09/24/2024 6:55 AM EST 09/24/2024 10:15 AM EST Kris Osorio MD LAB BLOOD ORDERABLES [facility] [address] [place] [address], * Magnesium (09/24/2024 6:55 AM EST) Magnesium 2.3 1.9 - 2.6 mg/dL LAB CHEMISTRY METHOD 09/24/2024 11:04 AM EST [facility] Blood Venous blood specimen / Unknown Venipuncture / Unknown 09/24/2024 6:55 AM EST 09/24/2024 10:15 AM EST Kris Osorio MD LAB BLOOD ORDERABLES [facility] [address] [place] [address], [place] [phone] * (ABNORMAL) Folate (09/24/2024 6:55 AM EST) Pathologist [facility] Folate >20.0(H) 2.8 - 17.0 ng/ml LAB CHEMISTRY METHOD 09/24/2024 11:15 AM [facility] Blood Venous blood specimen / Unknown Venipuncture / Unknown 09/24/2024 6:55 AM EST 09/24/2024 10:15 AM EST Kris Osorio MD LAB BLOOD ORDERABLES Performing Organization Address [facility]/ZIP Co de Phone Number [facility] [address] [place] [address], [place] [phone] * (ABNORMAL) Comprehensive metabolic panel (09/24/2024 6:55 AM EST) [facility] Sodium 139 133 - 145 mmol/L LAB CHEMISTRY METHOD 09/24/2024 11:15 AM [facility] Potassium 3.9 3.5 - 5.5 mmol/L LAB CHEMISTRY METHOD 09/24/2024 11:15 AM [facility] Chloride 103 96 - 110 mmol/L LAB CHEMISTRY METHOD 09/24/2024 11:15 AM [facility] CO2 33(H) 21 - 32 mmol/L LAB CHEMISTRY METHOD 09/24/2024 11:15 AM [facility] Anion Gap 3 3 - 11 LAB CHEMISTRY METHOD 09/24/2024 11:15 AM [facility] Glucose 104(H) 70 - 100 mg/dL LAB CHEMISTRY METHOD 09/24/2024 11:15 AM [facility] BUN 17 5 - 25 mg/dL LAB CHEMISTRY METHOD 09/24/2024 11:15 AM [facility] Creatinine 0.57(L) 0.70 - 1.30 mg/dL LAB CHEMISTRY METHOD 09/24/2024 11:15 AM [facility] eGFR 102 >=60 mL/min/1. 73m2 LAB CHEMISTRY METHOD 09/24/2024 11:15 AM [facility] Comment:Calculation based on the??Chronic Kidney Disease Epidemiology Collaboration (CKD-EPI) equation refit??without adjustment for race. BUN/Creatinine Ratio 29.8 LAB CHEMISTRY METHOD 09/24/2024 11:15 AM [facility] Calcium 8.7 8.5 - 10.5 mg/dL LAB CHEMISTRY METHOD 09/24/2024 11:15 AM [facility] AST (SGOT) 21 10 - 42 unit/L LAB CHEMISTRY METHOD 09/24/2024 11:15 AM [facility] ALT (SGPT) 38 10 - 60 unit/L LAB CHEMISTRY METHOD 09/24/2024 11:15 AM [facility] Alkaline Phosphatase 102 42 - 121 unit/L LAB CHEMISTRY METHOD 09/24/2024 11:15 AM [facility] Total Protein 6.0 6.0 - 8.0 g/dL LAB CHEMISTRY METHOD 09/24/2024 11:15 AM [facility] Albumin 3.3 3.2 - 5.0 g/dL LAB CHEMISTRY METHOD 09/24/2024 11:15 AM [facility] Total Bilirubin 0.2 0.0 - 1.4 mg/dL LAB CHEMISTRY METHOD 09/24/2024 11:15 AM [facility] Blood Venous blood specimen / Unknown Venipuncture / Unknown 09/24/2024 6:55 AM EST 09/24/2024 10:15 AM EST Kris Osorio MD LAB BLOOD ORDERABLES [facility] [address] [place] [address], * [id number], RSV, Influenza A and B qualitative RT-PCR (09/15/2024 12:00 PM EST) SARS COV-2 Not Detected Not Detected LAB MOLECULAR DIAGNOSTICS METHOD 09/16/2024 12:35 PM EST [facility] Comment: Disclaimer: The manner in which this information is used to guide patient care is the responsibility of the healthcare provider. Testing was performed using the [employer] Alinity m SARS-CoV-2 test. This test has [...] for Healthcare Providers can be found at: https://www.fda.gov/media/009337/download Fact sheet for Patients can be found at: https://www.fda.gov/media/447325/download Influenza A PCR Not Detected Not Detected LAB MOLECULAR DIAGNOSTICS METHOD 09/16/2024 12:35 PM EST [facility] Influenza B PCR Not Detected Not Detected LAB MOLECULAR DIAGNOSTICS METHOD 09/16/2024 12:35 PM EST [facility] RSV PCR Not Detected Not Detected LAB MOLECULAR DIAGNOSTICS METHOD 09/16/2024 12:35 PM EST [facility] Swab Nasopharyngeal structure / Unknown 09/15/2024 12:00 PM EST 09/16/2024 9:43 AM EST Farideh Garcia MD LAB MICROBIOLOGY - G ENERAL ORDERABLES [facility] [address] [place] [address], [place] [phone] * (ABNORMAL) Basic metabolic panel (08/22/2024 5:29 AM EST) Sodium 142 133 - 145 mmol/L LAB CHEMISTRY METHOD 08/22/2024 10:42 AM [facility] Potassium 3.5 3.5 - 5.5 mmol/L LAB CHEMISTRY METHOD 08/22/2024 10:42 AM [facility] Chloride 105 96 - 110 mmol/L LAB CHEMISTRY METHOD 08/22/2024 10:42 AM [facility] CO2 31 21 - 32 mmol/L LAB CHEMISTRY METHOD 08/22/2024 10:42 AM [facility] Anion Gap 6 3 - 11 LAB CHEMISTRY METHOD 08/22/2024 10:42 AM [facility] Glucose 124(H) 70 - 100 mg/dL LAB CHEMISTRY METHOD 08/22/2024 10:42 AM [facility] BUN 16 5 - 25 mg/dL LAB CHEMISTRY METHOD 08/22/2024 10:42 AM [facility] Creatinine 0.61(L) 0.70 - 1.30 mg/dL LAB CHEMISTRY METHOD 08/22/2024 10:42 AM [facility] eGFR 100 >=60 mL/min/1. 73m2 LAB CHEMISTRY METHOD 08/22/2024 10:42 AM [facility] Comment:Calculation based on the??Chronic Kidney Disease Epidemiology Collaboration (CKD-EPI) equation refit??without adjustment for race. BUN/Creatinine Ratio 26.2 LAB CHEMISTRY METHOD 08/22/2024 10:42 AM [facility] Calcium 8.4(L) 8.5 - 10.5 mg/dL LAB CHEMISTRY METHOD 08/22/2024 10:42 AM [facility] Blood Venous blood specimen / Unknown Venipuncture / Unknown 08/22/2024 5:29 AM EST 08/22/2024 10:05 AM EST Kris Osorio MD LAB BLOOD ORDERABLES [facility] ([facility] [address] [place] [address], from Last 3 Months Care Teams Industrial Design Engineer Relationship Specialty Start Date End Date Farideh Garcia MD [address] [facility] [address] [place] [address] PCP - General Geriatric Medicine 09/16/24
--- OUTSIDE RECORDS SUMMARY | 2024-09-24 14:07 | XMS_ITS | Encounter Summary ---
Author Organization [employer] Address [address] [place] [address] Care Team Providers Care Rehabilitation Inspector Name Role Phone Farideh Garcia MD Primary Care Provider [phone] Encounter Details Date Type Department Care Team (Late st Contact Info) Description 09/23/2024 Lab Requisition [facility] - Main Lab [address] [facility] [place] [address] Kris Osorio MD [address] [place] [phone] Benign prostatic hyperplasia without lower urinary tract symptoms; Vitamin D deficiency, unspecified; Essential (primary) hypertension Social History Tobacco Use [...] Vitamin D deficiency, unspecified Essential (primary) hypertension documented in this encounter Results * (ABNORMAL) Vitamin D 25 hydroxy (09/24/2024 6:55 AM EST) Vit D, 25-Hydroxy 100.9(H) 30.0 - 80.0 ng/mL LAB CHEMISTRY METHOD 09/24/2024 11:13 AM EST [facility] Blood Venous blood specimen / Unknown Venipuncture / Unknown 09/24/2024 6:55 AM EST 09/24/2024 10:15 AM EST Kris Osorio MD LAB BLOOD ORDERABLES Performing Organization Address [facility]/ZIP Co de Phone Number [facility] [address] [place] [address], * Magnesium (09/24/2024 6:55 AM EST) [facility] Magnesium 2.3 1.9 - 2.6 mg/dL LAB CHEMISTRY METHOD 09/24/2024 11:04 AM EST [facility] Blood Venous blood specimen / Unknown Venipuncture / Unknown 09/24/2024 6:55 AM EST 09/24/2024 10:15 AM EST Kris Osorio MD LAB BLOOD ORDERABLES [facility] [address] [place] [address], * (ABNORMAL) Folate (09/24/2024 6:55 AM EST) Pathologist [facility] Folate >20.0(H) 2.8 - 17.0 ng/ml LAB CHEMISTRY METHOD 09/24/2024 11:15 AM EST [facility] Blood Venous blood specimen / Unknown Venipuncture / Unknown 09/24/2024 6:55 AM EST 09/24/2024 10:15 AM EST Kris Osorio MD LAB BLOOD ORDERABLES [facility] [address] [place] [address], [place] [phone] * (ABNORMAL) Comprehensive metabolic panel (09/24/2024 6:55 AM EST) Sodium 139 133 - 145 mmol/L LAB CHEMISTRY METHOD 09/24/2024 11:15 AM EST [facility] Potassium 3.9 3.5 - 5.5 mmol/L LAB CHEMISTRY METHOD 09/24/2024 11:15 AM [facility] Chloride 103 96 - 110 mmol/L LAB CHEMISTRY METHOD 09/24/2024 11:15 AM [facility] CO2 33(H) 21 - 32 mmol/L LAB CHEMISTRY METHOD 09/24/2024 11:15 AM [facility] Anion Gap 3 3 - 11 LAB CHEMISTRY METHOD 09/24/2024 11:15 AM [facility] Glucose 104(H) 70 - 100 mg/dL LAB CHEMISTRY METHOD 09/24/2024 11:15 AM [facility] BUN 17 5 - 25 mg/dL LAB CHEMISTRY METHOD 09/24/2024 11:15 AM [facility] Creatinine 0.57(L) 0.70 - 1.30 mg/dL LAB CHEMISTRY METHOD 09/24/2024 11:15 AM [facility] eGFR 102 >=60 mL/min/1. 73m2 LAB CHEMISTRY METHOD 09/24/2024 11:15 AM [facility] Comment:Calculation based on the??Chronic Kidney Disease Epidemiology Collaboration (CKD-EPI) equation refit??without adjustment for race. BUN/Creatinine Ratio 29.8 LAB CHEMISTRY METHOD 09/24/2024 11:15 AM [facility] Calcium 8.7 8.5 - 10.5 mg/dL LAB CHEMISTRY METHOD 09/24/2024 11:15 AM [facility] AST (SGOT) 21 10 - 42 unit/L LAB CHEMISTRY METHOD 09/24/2024 11:15 AM [facility] ALT (SGPT) 38 10 - 60 unit/L LAB CHEMISTRY METHOD 09/24/2024 11:15 AM [facility] Alkaline Phosphatase 102 42 - 121 unit/L LAB CHEMISTRY METHOD 09/24/2024 11:15 AM [facility] Total Protein 6.0 6.0 - 8.0 g/dL LAB CHEMISTRY METHOD 09/24/2024 11:15 AM [facility] Albumin 3.3 3.2 - 5.0 g/dL LAB CHEMISTRY METHOD 09/24/2024 11:15 AM [facility] Total Bilirubin 0.2 0.0 - 1.4 mg/dL LAB CHEMISTRY METHOD 09/24/2024 11:15 AM [facility] Blood Venous blood specimen / Unknown Venipuncture / Unknown 09/24/2024 6:55 AM EST 09/24/2024 10:15 AM EST Kris Osorio MD LAB BLOOD ORDERABLES [facility] [address] [place] [address], * (ABNORMAL) Complete blood count (09/24/2024 6:55 AM EST) WBC 8.9 4.8 - 10.8 K/mcL LAB HEMETOLOGY METHOD 09/24/2024 10:37 AM [facility] RBC 4.60 4.50 - 5.50 M/mcL LAB HEMETOLOGY METHOD 09/24/2024 10:37 AM [facility] Hemoglobin 12.3(L) 13.5 - 17.5 g/dL LAB HEMETOLOGY METHOD 09/24/2024 10:37 AM [facility] Hematocrit 38.7(L) 42.0 - 54.0 % LAB HEMETOLOGY METHOD 09/24/2024 10:37 AM [facility] MCV 84.7 79.0 - 98.0 FL LAB HEMETOLOGY METHOD 09/24/2024 10:37 AM [facility] MCH 26.9(L) 27.0 - 32.0 pcg LAB HEMETOLOGY METHOD 09/24/2024 10:37 AM [facility] MCHC 31.8(L) 32.0 - 37.0 g/dL LAB HEMETOLOGY METHOD 09/24/2024 10:37 AM [facility] RDW 13.7 11.0 - 15.0 % LAB HEMETOLOGY METHOD 09/24/2024 10:37 AM [facility] Platelets 194 130 - 400 K/mcL LAB HEMETOLOGY METHOD 09/24/2024 10:37 AM [facility] MPV 10.3 7.0 - 11.0 FL LAB HEMETOLOGY METHOD 09/24/2024 10:37 AM [facility] NRBC 0.2 <1.0 % LAB HEMETOLOGY METHOD 09/24/2024 10:37 AM [facility] NRBC Absolute 0.02 <0.10 K/mcL LAB HEMETOLOGY METHOD 09/24/2024 10:37 AM [facility] Blood Venous blood specimen / Unknown Venipuncture / Unknown 09/24/2024 6:55 AM EST 09/24/2024 10:15 AM EST Kris Osorio MD LAB BLOOD ORDERABLES [facility] [address] [place], [place] [address] [phone] documented in this encounter Visit Diagnoses Diagnosis Benign prostatic hyperplasia without lower urinary tract symptoms Vitamin D deficiency, unspecified Essential (primary) hypertension Unspecified essential hypertension documented in this encounter Care Teams Rehabilitation Inspector Relationship Specialty Start Date End Date Farideh Garcia MD [address] [place] [address] [address] [place] [address] PCP - General Geriatric Medicine 09/16/24 documented as of this encounter
--- OUTSIDE RECORDS SUMMARY | 2024-09-24 14:07 | XMS_ITS | Encounter Summary ---
Author Organization [facility] Address [address] [place] [address] Care Team Providers Care Insurance Processing Clerk Name Role Phone Farideh Garcia MD Primary Care Provider [phone] Encounter Details Date Type Department Care Team (Late st Contact Info) Description 09/16/2024 Lab Requisition [facility] - Main Lab [address] [facility] [place] [address] Farideh Garcia MD [address] [place] [address] Shortness of breath; Acute cough Social History [...] Procedure Name Priority Date/Time Associated Diagnosis Comments [id number], RSV, FLU A AND B QUALITATIVE RT-PCR, LOCAL REFERENCE LAB Routine 09/15/2024 12:00 PM EST Shortness of breath Acute cough documented in this encounter Results * [id number], RSV, Influenza A and B qualitative RT-PCR (09/15/2024 12:00 PM EST) SARS COV-2 Not Detected Not Detected LAB MOLECULAR DIAGNOSTICS METHOD 09/16/2024 12:35 PM EST [facility] Comment: Disclaimer: The manner in which this information is used to guide patient care is the responsibility of the healthcare provider. Testing was performed using the TripwareniLight Extraction m SARS-CoV-2 test. This test has been [...] for Healthcare Providers can be found at: https://www.fda.gov/media/934493/download Fact sheet for Patients can be found at: https://www.fda.gov/media/816708/download Influenza A PCR Not Detected Not Detected LAB MOLECULAR DIAGNOSTICS METHOD 09/16/2024 12:35 PM EST [facility] Influenza B PCR Not Detected Not Detected LAB MOLECULAR DIAGNOSTICS METHOD 09/16/2024 12:35 PM EST [facility] RSV PCR Not Detected Not Detected LAB MOLECULAR DIAGNOSTICS METHOD 09/16/2024 12:35 PM EST [facility] Swab Nasopharyngeal structure / Unknown 09/15/2024 12:00 PM EST 09/16/2024 9:43 AM EST Farideh Garcia MD LAB MICROBIOLOGY - G ENERAL ORDERABLES [facility] [address] [phone] documented in this encounter Visit Diagnoses Diagnosis Shortness of breath Acute cough documented in this encounter Additional Health Concerns Infection Onset Date Last Indicated Resolved Time Respiratory Rule-Out 09/16/2024 09/15/2024 025 12:35 PM EST documented as of this encounter Care Teams Insurance Processing Clerk Relationship Specialty Start Date End Date Farideh Garcia MD [address] [place] [address] [address] [place] [address] PCP - General Geriatric Medicine 09/16/24 documented as of this encounter
--- OUTSIDE RECORDS SUMMARY | 2024-09-24 14:07 | XMS_ITS | Encounter Summary ---
Author Organization [employer] [facility] Address [address] [place] [address] Care Team Providers Care Manager Of Security Name Role Phone Farideh Garcia MD Primary Care Provider [phone] Encounter Details Date Type Department Care Team (Late st Contact Info) Description 08/21/2024 Lab Requisition [facility] - Main Lab [address] [place] [address] Kris Osorio MD [address] [place] [id number] Essential (primary) hypertension Social History Tobacco Use [...] LAB CHEMISTRY METHOD 08/22/2024 10:42 AM EST [facility] Potassium 3.5 3.5 - 5.5 mmol/L LAB CHEMISTRY METHOD 08/22/2024 10:42 AM EST [facility] Chloride 105 96 - 110 mmol/L LAB CHEMISTRY METHOD 08/22/2024 10:42 AM EST [facility] CO2 31 21 - 32 mmol/L LAB CHEMISTRY METHOD 08/22/2024 10:42 AM EST [facility] Anion Gap 6 3 - 11 LAB CHEMISTRY METHOD 08/22/2024 10:42 AM [facility] Glucose 124(H) 70 - 100 mg/dL LAB CHEMISTRY METHOD 08/22/2024 10:42 AM [facility] BUN 16 5 - 25 mg/dL LAB CHEMISTRY METHOD 08/22/2024 10:42 AM [facility] Creatinine 0.61(L) 0.70 - 1.30 mg/dL LAB CHEMISTRY METHOD 08/22/2024 10:42 AM [facility] eGFR 100 >=60 mL/min/1. 73m2 LAB CHEMISTRY METHOD 08/22/2024 10:42 AM [facility] Comment:Calculation based on the??Chronic Kidney Disease Epidemiology Collaboration (CKD-EPI) equation refit??without adjustment for race. BUN/Creatinine Ratio 26.2 LAB CHEMISTRY METHOD 08/22/2024 10:42 AM [facility] Calcium 8.4(L) 8.5 - 10.5 mg/dL LAB CHEMISTRY METHOD 08/22/2024 10:42 AM [facility] Blood Venous blood specimen / Unknown Venipuncture / Unknown 08/22/2024 5:29 AM EST 08/22/2024 10:05 AM EST Kris Osorio MD LAB BLOOD ORDERABLES [facility] [address] [place], [place] [address] [phone] documented in this encounter Visit Diagnoses Diagnosis Essential (primary) hypertension Unspecified essential hypertension documented in this encounter Additional Health Concerns Infection Onset Date Last Indicated Resolved Time Respiratory Rule-Out 09/16/2024 09/15/2024 025 12:35 PM EST documented as of this encounter Care Teams Manager Of Security Relationship Specialty Start Date End Date Farideh Garcia MD [address] [facility] [address] [place] [address] PCP - General Geriatric Medicine 09/16/24 documented as of this encounter
== END | disposition home or self-care (01) ==
LOC: HO.NEURO 12:44
PROVIDERS: PCP Family Medicine Geriatric Medicine; Visit Provider Physical Medicine & Rehabilitation
DX: G81.12 Spastic hemiplegia affecting left dominant side (principal)
CPT/HCPCS: 64642; 64643; 95874; J0585

== ENCOUNTER → 2024-09-24 12:58 | Outpatient (BNV) | payer MEDICARE, MEDICAID, SELFPAY | PROVIDERS: PCP Family Medicine Geriatric Medicine; Visit Provider Physical Medicine & Rehabilitation | DX: G81.11 Spastic hemiplegia affecting right dominant side (principal); G81.14 Spastic hemiplegia affecting left nondominant side | CPT/HCPCS: 64642; 64643; 95874 ==

== ENCOUNTER 2024-11-14 09:02 | Outpatient (AMB) | payer MEDICARE, MEDICAID, SELFPAY ==
--- NOTE | 2024-11-14 09:08 | A.OFFVIS_ITS ---
Intake Visit Reasons: OV F/U-Spastic hemiplegia Intake Note: Jose is a 74 year old male who presents today for a follow up of Spastic Hemiplegia s/p repeat botox. Last botox injection was 09/24/2024 - 600 Units. Patient reports that his symptoms have remained relatively unchanged. He presents with someone from the facility who patient requested to interpret for him. Director Medical Economics Services: Director Medical Economics Present Allergies Penicillins Allergy (Severe, Verified 09/22/24 11:49) Rash tramadol Allergy (Unknown, Verified 09/22/24 11:49) inadequate response HPI Comments Details: DIAGNOSIS: spastic hemiparesis CVA late effects ICD10: G81.11 affecting right dominant side G81.14 affecting left nondominant side INDICATION: spastic muscles PREVIOUS TREATMENT AND RESPONSE: Last injection 09/24/2024, 06/25/24, 03/25/24, 01/01/24 Muscle Units per site Number of sites Units per muscle Right FDP 50 1 50 Right FDS 50 1 50 Left FDP 50 1 50 Left FDS 50 1 50 Left medial hamstrings 50 2 100 Left lateral hamstrings 50 2 100 Right medial hamstrings 50 2 100 Right lateral hamstrings 50 2 100 EMG-guidance was used during the injection. A total of 600 units injected. 0 units wastage. Since last injection, he has seen neuro spine who has recommended cervical spine fusion ACDF C4-5, to be done 12/11/[address] Jones[address] [facility] Medical History Spastic hemiparesis of left dominant side Spastic hemiplegia affecting right dominant side Spastic hemiparesis affecting dominant side Contracture, left hand Bilateral knee contractures Elevated PSA Insomnia Fibromyalgia GERD (gastroesophageal reflux disease) Hypovitaminosis D Lumbar degenerative disc disease Surgical History History of prostate surgery History of shoulder surgery History of laminectomy Family History Father Diabetes Hypertension Liver cancer Mother Diabetes Hypertension Stroke Other Substance use disorder Social History Housing: House Alcohol intake: current Alcohol intake frequency: a few times a week Alcohol type: beer and hard liquor Patient Tobacco Use Status: Former Tobacco user Cigarettes Per Day: 3 e-Cigarette/Vaping Use: Never Used Second Hand Smoke Exposure: No Advance Directives Date on File: 09/06/22 service: No Current occupational status: disabled Cognitive needs: Yes (cane) Hearing needs: No Vision needs: Yes (reading glasses) Physical Exam Assessment & Plan Assessment & Plan (1) Spastic hemiparesis of left dominant side: Code(s): G81.12 - Spastic hemiplegia affecting left dominant side Category: Medical (2) Spastic hemiplegia affecting right dominant side: Code(s): G81.11 - Spastic hemiplegia affecting right dominant side Category: Medical Qualifiers: Hemiplegia etiology: late effect of cerebrovascular disease C erebrovascular disease type: cerebral infarction Qualified Code(s): I69.351 - Hemiplegia and hemiparesis following cerebral infarction affecting right dominant side Plan I think we have reached maximum improvement from botulinum toxin injections but it is overall improved since before we started in 2023. Patient used to have almost contractures on knee flexion but now he is able to actively extend both knees, although we have not reached full range on extension. Better range also on both hands which allows for better self cleaning, avoiding skin irritation in the palm, and overall better range. I would like to postpone his next Botox injections until after cervical spine fusion on 12/11/2024 to see if there would be any change in his spasticity, and if we need to adjust botulinum toxin dose. Next follow up mid December, roughly 1 month after fusion surgery. May continue PT and OT in the meantime. Assessment and plan discussed with patient, and patient was agreeable. All questions were answered thoroughly. Jolynn Rodriguez MD, NELIDA Board Certified, [place] Board [employer] Physical Medicine and Rehabilitation (ABPMR) Board Certified, [place] Board of Electrodiagnostic Medicine (ABEM) Coding Level of Care Code Est Pt Level 3 (22294) Diagnoses Spastic hemiparesis of left dominant side G81.12 Spastic hemiplegia of right dominant side as late effect of cerebral infarction I69.351 Hemiplegia etiology: late effect of cerebrovascular disease Cerebrovascular disease type: cerebral infarction
== END 2024-11-14 09:30 | disposition home or self-care (01) ==
LOC: HO.HOS 09:03
PROVIDERS: PCP Family Medicine Geriatric Medicine; Visit Provider Physical Medicine & Rehabilitation
DX: I69.351 Hemiplegia and hemiparesis following cerebral infarction affecting right dominant side (principal); G81.12 Spastic hemiplegia affecting left dominant side
CPT/HCPCS: 99213

== ENCOUNTER → 2024-11-14 09:02 | Outpatient (BNVA) | payer MEDICARE, MEDICAID, SELFPAY | PROVIDERS: PCP Family Medicine Geriatric Medicine; Visit Provider Physical Medicine & Rehabilitation | DX: I69.352 Hemiplegia and hemiparesis following cerebral infarction affecting left dominant side (principal); I69.351 Hemiplegia and hemiparesis following cerebral infarction affecting right dominant side | CPT/HCPCS: 99212 ==

== ENCOUNTER 2024-11-18 12:17 | Outpatient (AMB) | payer MEDICARE, MEDICAID, SELFPAY ==
[2024-11-18 12:38] VITALS: BP 110/80; PULSE 72; O2SAT 95
--- NOTE | 2024-11-18 12:38 | A.OFFPC_ITS ---
Vital Signs 11/18/24 12:38 Height 5 ft 6 in BMI Reason not done Patient refused/unable BP 110/80 Blood Pressure Location Lt brachial Position Sitting Pulse 72 Pulse Source Pulse Oximeter Pulse Oximetry (%) 95 Oxygen Delivery Method Room Air Intake Visit Reasons: [facility] 11/13 Corporate Administrative Assistant Required: No Accompanied by: Staff Allergies Penicillins Allergy (Severe, Verified 11/18/24 12:53) Rash tramadol Allergy (Unknown, Verified 11/18/24 12:53) inadequate response Tobacco use date assessed: 11/18/24 Fall risk assessment: No Falls in past year Last assessed Fall Risk: 11/18/24 Dental Screening Dental Screen Date: 11/18/24 Did you have a dental visit in the last 12 months?: No Did you have a dental problem in the last 6 months where you did not have access to dental care?: No Was dental information given to patient?: No HPI HPI Comments History of Present Illness Details The patient is a 74-year-old male presenting with hypertension, peripheral arterial disease, mild recurrent major depression, fibromyalgia, cervical cord compression and stroke with spastic hemiparesis of left and right side as residual deficit that comes for medication management and follow-up after a cerebrovascular accident (stroke) which occurred approximately three years ago. This event led to significant mobility issues predominantly affecting the left side, yet the right side was also initially involved. He currently experiences greater difficulty with the left side and unable to walk unaided, relying on a walker and requiring assistance with transfers. He receives therapy to improve mobility. The patient lives in a care home but expects to move to a shared home. Essential hypertension is managed with amlodipine, and he deals with anxiety using buspirone. The patient also deals with constipation, insomnia, and fibromyalgia, using a variety of medications for these conditions. Reports of neuropathy are managed with gabapentin. GERD symptoms seemingly managed with omeprazole. The patient notes allergies to penicillin and tramadol. [facility] Medical History (Updated 11/18/24 @ 13:15 by Leora Mendez MD) Moderate major depression Spastic hemiparesis of left dominant side Spastic hemiplegia affecting right dominant side Spastic hemiparesis affecting dominant side Contracture, left hand Bilateral knee contractures Elevated PSA Insomnia Fibromyalgia GERD (gastroesophageal reflux disease) Hypovitaminosis D Lumbar degenerative disc disease Surgical History History of prostate surgery History of shoulder surgery History of laminectomy Family History Father Diabetes Hypertension Liver cancer Mother Diabetes Hypertension Stroke Other Substance use disorder Social History Housing: House Alcohol intake: former Patient Tobacco Use Status: Former Tobacco user Cigarettes Per Day: 3 e-Cigarette/Vaping Use: Never Used Second Hand Smoke Exposure: No Advance Directives Date on File: 09/06/22 service: No Current occupational status: disabled Cognitive needs: Yes (cane) Hearing needs: No Vision needs: Yes (reading glasses) Questionnaire PHQ-9 Over the last 2 weeks, how often have you been bothered by any of the following problems? 1. Little interest or pleasure in doing things: not at all 2. Feeling down, depressed, or hopeless: more than half the days 3. Trouble falling or staying asleep, or sleeping too much: more than half the days 4. Feeling tired or having little energy: several days 5. Poor appetite or overeating: not at all 6. Feeling bad about yourself - or that you are a failure or have let yourself or your family down: more than half the days 7. Trouble concentrating on things, such as reading the newspaper or watching television: not at all 8. Moving or speaking so slowly that other people could have noticed. Or the opposite - being so fidgety or restless that you have been moving around a lot more than usual: several days 9. Thoughts that you would be better off or of hurting yourself in some way: not at all Total score: 8 Depression Screening Interpretation: Positive Depression Screening Follow-up: Existing condition, In treatment and Follow-up Visit Requested Depression Screening Done: Yes 55820 - PHQ-9 Billing: Yes Source: Developed by Drs. Marek Sutton, Jaylyn Clark, Brennon Dockery and colleagues, with an educational adams from [employer]. Thrive Questionnaire Date Thrive assessed: 11/18/24 I am a: Parent/Caregiver What is your living situation today?: I have a steady place to live Within the past 12 months, did the food you bought not last and you didn't have the money to get more?: Never true Within the past 12 months, did you worry whether your food would run out before you got money to buy more?: Never true Do you have trouble paying for medicines?: No Do you have trouble getting transportation to medical appointments?: No Do you have trouble paying your heating and electricity bill?: No Do you have trouble taking care of your child, family member or friend?: No Do you have trouble with day-to-day activities such as bathing, preparing meals, shopping, managing finances, etc.?: No Are you currently unemployed and looking for a job?: No Are you interested in more education?: No Please select the resources that you would like help with: None Currently or been in a relationship where the following occur: No concerns reported THRIVE Score: 0 AUDIT C Alcohol Use Questionnaire (AUDIT-C) 1. How often do you have a drink containing alcohol?: Never Total Score: 0 Score Reviewed/Action Taken: No FARHAT-7 AMB Questionnaire FARHAT-7 Date FARHAT - 7 assessed: 11/18/24 Feeling nervous, anxious, or on edge: 1 = Several days Not being able to stop or control worryin = Not at all Worrying too much about different things: 2 = More than half the days Trouble relaxin = Several days Being so restless that it is hard to sit still: 0 = Not at all Becoming easily annoyed or irritable: 1 = Several days Feeling afraid as if something awful might happen: 1 = Several days Total FARHAT-7 score (0-4 normal; 5-9 mild; 10-14 moderate; 15-21 severe): 6 Source: Developed by Drs. Marek Sutton, Jaylyn Clark, Brennon Dockery and colleagues, with an educational adams from [employer]. FARHAT-7 Assessment Billing FARHAT-7 Assessment Tool: FARHAT-7 Assessment 66221 Review of Systems Const All systems reviewed & are unremarkable except as noted in HPI and below ENT Reports neck pain Card Denies chest pain at rest, Denies chest pain with activity, Denies edema, Denies irregular heart rhythm, Denies claudication, Denies dyspnea, Denies dyspnea on exertion, Denies orthopnea, Denies paroxysmal nocturnal dyspnea and Denies slow heart rate Resp Denies cough, Denies dyspnea and Denies dyspnea on exertion Musc Reports back pain, Denies atrophy, Denies deformity, Reports arthralgias, Reports limited range of motion, Reports muscle weakness and Reports neck pain Skin/Breast Denies bleeding lesions, Denies changing lesions and Denies rash Neuro Reports focal weakness Physical exam (Primary Care) Vital Signs: Last Vital Signs Pulse 72 11/18/24 12:38 BP 110/80 11/18/24 12:38 Pulse Ox 95 11/18/24 12:38 Oxygen Delivery Method Room Air 11/18/24 12:38 Tobacco/Smoking Status: Tobacco use Status Tobacco use date assessed 08/05/21 10/21/21 15:16 Patient Tobacco Use Status Former Tobacco user 11/18/24 12:50 e-Cigarette/Vaping Use Never Used 11/18/24 12:50 Depression Screening Interpretation: Positive Depression Screening Follow-up: Existing condition, In treatment and Follow-up Visit Requested Thrive Assessment: Date of Thrive Assessment Date Thrive assessed 10/21/21 10/21/21 15:16 Currently or been in a relationship where the following occur: No concerns reported Const Limitations: wheelchair Neck Neck: Yes normal visual inspection and Yes supple Resp Effort & Inspection: normal respiratory effort Auscultation: clear to auscultation bilaterally Cardio Jugular venous distension: no JVD Rate: regular rate Rhythm: regular rhythm Heart sounds: S1 normal heart sound present and S2 normal heart sound present Neuro Other: both hands closed in a fist Motor exam (neuro): Abnormal motor strength present (2/5 RUE, 3/5 LUE, 3/5 RLE, 2/5 LLE) Coding Level of Care Code Est Pt Level 4 (23949) Complex EM visit Add On G2211 Diagnoses Essential hypertension I10 Cervical spinal cord compression G95.20 Spastic hemiparesis of left dominant side G81.12 Spastic hemiplegia of right dominant side as late effect of cerebral infarction I69.351 Hemiplegia etiology: late effect of cerebrovascular disease Cerebrovascular disease type: cerebral infarction PAD (peripheral artery disease) I73.9 Mild recurrent major depression F33.0 Fibromyalgia M79.7 Stroke I63.9 Additional Codes PHQ-9 - 61459 - PHQ-9 Billing: Yes ([id number]) FARHAT-7 Assessment Billing - FARHAT-7 Assessment Tool: FARHAT-7 Assessment 59902 ([id number]) Time Spent (min) 23 Assessment & Plan Assessment & Plan (1) Essential hypertension: Code(s): I10 - Essential (primary) hypertension Category: Medical (2) Cervical spinal cord compression: Code(s): G95.20 - Unspecified cord compression Category: Medical (3) Spastic hemiparesis of left dominant side: Code(s): G81.12 - Spastic hemiplegia affecting left dominant side Category: Medical (4) Spastic hemiplegia affecting right dominant side: Code(s): G81.11 - Spastic hemiplegia affecting right dominant side Category: Medical Qualifiers: Hemiplegia etiology: late effect of cerebrovascular disease Cerebrovascular disease type: cerebral infarction Qualified Code(s): I69.351 - Hemiplegia and hemiparesis following cerebral infarction affecting right dominant side (5) PAD (peripheral artery disease): Code(s): I73.9 - Peripheral vascular disease, unspecified Category: Medical (6) Mild recurrent major depression: Code(s): F33.0 - Major depressive disorder, recurrent, mild Category: Medical (7) Fibromyalgia: Code(s): M79.7 - Fibromyalgia Category: Medical (8) Stroke: Code(s): I63.9 - Cerebral infarction, unspecified Category: Medical Plan The patient will maintain his current medication regimen with scheduled refills covering hypertension, anxiety, neuropathy, fibromyalgia, GERD, insomnia, and constipation. Scheduled fasting blood work to occur within the next three months, with subsequent follow-up in four months to evaluate the current treatment plan's effectiveness. Continued participation in physical therapy is crucial to support mobility. Pending transition to a shared home will require coordinated care to assure seamless continuation of medication and therapy. No new medications are planned, ensuring stability. Monitoring is essential to manage hypertension effectively and mitigate any adverse medication effects. Patient was informed and verbally consented to the use of an ambient scribe for clinic note documentation during this visit. I discussed with the patient the ongoing management of his medications and health care plan. We agreed on continuing the current medication regimen, given its efficacy. I explained the importance of completing blood work for monitoring purposes and set a timeline for these tests. The patient understands the plan to follow up in four months to assess progress further. I acknowledged his transition to a new living arrangement and emphasized ongoing therapy's role in supporting mobility. We also discussed the administered Botox injections for muscle relaxation and their objective to aid in muscle function. Through this coordinated care plan and consistent monitoring, we aim to optimize his health within his living arrangement. Orders: Orders Comprehensive [place]. Panel Fast Today I10 - Essential (primary) hypertension Lipid Panel Today E78.5 - Hyperlipidemia, unspecified Medications: New pregabalin 75 mg PO TID 30 days 90 caps 0RF oxycodone Partial Fill upon patient request. 5 mg PO Q8H 30 days PRN 90 tabs 0RF pain Changed From trazodone 25 mg PO BEDTIME PRN To trazodone 25 mg (1/2 x 50 mg) PO BEDTIME 90 days PRN 90 tabs 1RF insomnia From amlodipine 5 mg PO DAILY To amlodipine 5 mg PO DAILY 90 days 90 tabs 1RF Patient Instructions: - Continue taking prescribed medications daily. - Complete fasting blood work within the next three months. - Schedule and attend the follow-up appointment in four months. - Continue physical therapy as planned to support mobility. - Transition to the new home will include a review of medication administration and therapy resources. - Communicate any changes in health or difficulties with medications to the care team promptly.
--- OUTSIDE RECORDS SUMMARY | 2024-11-18 14:32 | XMS_ITS | Encounter Summary ---
Author Organization [facility] Address [address] [place] [address] Care Team Providers Care Fight Manager Name Role Phone Farideh Garcia MD Primary Care Provider [phone] Encounter Details Date Type Department Care Team (Late st Contact Info) Description 09/23/2024 Lab Requisition [facility] - Main Lab 299 [facility] [place] [address] Kris Osorio MD [address] [place] [address] Benign prostatic hyperplasia without lower urinary tract symptoms; Vitamin D deficiency, unspecified; Essential (primary) hypertension Social History Tobacco Use Types Packs/Day Years Used Date Smoking Tobacco: Never Assessed Sex and Gender Information Value Date Recorded Sex Assigned at Not on file Legal Sex Male 9:10 PM EST Gender Identity Not on file Sexual Orientation [...] LAB CHEMISTRY METHOD 09/24/2024 11:13 AM EST [facility] Blood Venous blood specimen / Unknown Venipuncture / Unknown 09/24/2024 6:55 AM EST 09/24/2024 10:15 AM EST Kris Osorio MD LAB BLOOD ORDERABLES Final Res ult Performing Organization Address [facility]/ZIP Co de Phone Number [facility] [address] [place] [address], * Magnesium (09/24/2024 6:55 AM EST) Pathologist [facility] Magnesium 2.3 1.9 - 2.6 mg/dL LAB CHEMISTRY METHOD 09/24/2024 11:04 AM EST [facility] Blood Venous blood specimen / Unknown Venipuncture / Unknown 09/24/2024 6:55 AM EST 09/24/2024 10:15 AM EST Kris Osorio MD LAB BLOOD ORDERABLES Final Res ult [facility] [address] [place] [address], * (ABNORMAL) Folate (09/24/2024 6:55 AM EST) Pathologist [facility] Folate >20.0(H) 2.8 - 17.0 ng/ml LAB CHEMISTRY METHOD 09/24/2024 11:15 AM EST [facility] Blood Venous blood specimen / Unknown Venipuncture / Unknown 09/24/2024 6:55 AM EST 09/24/2024 10:15 AM EST Kris Osorio MD LAB BLOOD ORDERABLES Final Res ult [facility] [address] [place] [address], * (ABNORMAL) Comprehensive metabolic panel (09/24/2024 6:55 AM EST) Sodium 139 133 - 145 mmol/L LAB CHEMISTRY METHOD 09/24/2024 11:15 AM [facility] Potassium 3.9 3.5 - 5.5 mmol/L LAB CHEMISTRY METHOD 09/24/2024 11:15 AM [facility] Chloride 103 96 - 110 mmol/L LAB CHEMISTRY METHOD 09/24/2024 11:15 AM [facility] CO2 33(H) 21 - 32 mmol/L LAB CHEMISTRY METHOD 09/24/2024 11:15 AM [facility] Anion Gap 3 3 - 11 LAB CHEMISTRY METHOD 09/24/2024 11:15 AM [facility] Glucose 104(H) 70 - 100 mg/dL LAB CHEMISTRY METHOD 09/24/2024 11:15 AM [facility] BUN 17 5 - 25 mg/dL LAB CHEMISTRY METHOD 09/24/2024 11:15 AM [facility] Creatinine 0.57(L) 0.70 - 1.30 mg/dL LAB CHEMISTRY METHOD 09/24/2024 11:15 AM [facility] eGFR 102 >=60 mL/min/1. 73m2 LAB CHEMISTRY METHOD 09/24/2024 11:15 AM [facility] Comment:Calculation based on the??Chronic Kidney Disease Epidemiology Collaboration (CKD-EPI) equation refit??without adjustment for race. BUN/Creatinine Ratio 29.8 LAB CHEMISTRY METHOD 09/24/2024 11:15 AM [facility] Calcium 8.7 8.5 - 10.5 mg/dL LAB CHEMISTRY METHOD 09/24/2024 11:15 AM [facility] AST (SGOT) 21 10 - 42 unit/L LAB CHEMISTRY METHOD 09/24/2024 11:15 AM [facility] ALT (SGPT) 38 10 - 60 unit/L LAB CHEMISTRY METHOD 09/24/2024 11:15 AM [facility] Alkaline Phosphatase 102 42 - 121 unit/L LAB CHEMISTRY METHOD 09/24/2024 11:15 AM [facility] Total Protein 6.0 6.0 - 8.0 g/dL LAB CHEMISTRY METHOD 09/24/2024 11:15 AM [facility] Albumin 3.3 3.2 - 5.0 g/dL LAB CHEMISTRY METHOD 09/24/2024 11:15 AM [facility] Total Bilirubin 0.2 0.0 - 1.4 mg/dL LAB CHEMISTRY METHOD 09/24/2024 11:15 AM [facility] Blood Venous blood specimen / Unknown Venipuncture / Unknown 09/24/2024 6:55 AM EST 09/24/2024 10:15 AM EST us Kris Osorio MD LAB BLOOD ORDERABLES Final Res ult [facility] [address] [place] [address], * (ABNORMAL) Complete blood count (09/24/2024 6:55 AM EST) WBC 8.9 4.8 - 10.8 K/mcL LAB HEMETOLOGY METHOD 09/24/2024 10:37 AM EST [facility] RBC 4.60 4.50 - 5.50 M/mcL LAB HEMETOLOGY METHOD 09/24/2024 10:37 AM [facility] Hemoglobin 12.3(L) 13.5 - 17.5 g/dL LAB HEMETOLOGY METHOD 09/24/2024 10:37 AM [facility] Hematocrit 38.7(L) 42.0 - 54.0 % LAB HEMETOLOGY METHOD 09/24/2024 10:37 AM [facility] MCV 84.7 79.0 - 98.0 FL LAB HEMETOLOGY METHOD 09/24/2024 10:37 AM [facility] MCH 26.9(L) 27.0 - 32.0 pcg LAB HEMETOLOGY METHOD 09/24/2024 10:37 AM [facility] MCHC 31.8(L) 32.0 - 37.0 g/dL LAB HEMETOLOGY METHOD 09/24/2024 10:37 AM [facility] RDW 13.7 11.0 - 15.0 % LAB HEMETOLOGY METHOD 09/24/2024 10:37 AM [facility] Platelets 194 130 - 400 K/mcL LAB HEMETOLOGY METHOD 09/24/2024 10:37 AM [facility] MPV 10.3 7.0 - 11.0 FL LAB HEMETOLOGY METHOD 09/24/2024 10:37 AM [facility] NRBC 0.2 <1.0 % LAB HEMETOLOGY METHOD 09/24/2024 10:37 AM [facility] NRBC Absolute 0.02 <0.10 K/mcL LAB HEMETOLOGY METHOD 09/24/2024 10:37 AM [facility] Blood Venous blood specimen / Unknown Venipuncture / Unknown 09/24/2024 6:55 AM EST 09/24/2024 10:15 AM EST Kris Osorio MD LAB BLOOD ORDERABLES Final Res ult [facility] [address] [place] [address], documented in this encounter Visit Diagnoses Diagnosis Benign prostatic hyperplasia without lower urinary tract symptoms Vitamin D deficiency, unspecified Essential (primary) hypertension Unspecified essential hypertension documented in this encounter Care Teams Fight Manager Relationship Specialty Start Date End Date Farideh Garcia MD [address] [place] [address] [address] [place] [address] PCP - General Geriatric Medicine 09/16/24 documented as of this encounter
--- OUTSIDE RECORDS SUMMARY | 2024-11-18 14:32 | XMS_ITS | Encounter Summary ---
Author Organization [facility] Address [address] [place] [address] Care Team Providers Care Chief Wheelage Clerk Name Role Phone Farideh Garcia MD Primary Care Provider [phone] Encounter Details Date Type Department Care Team (Late st Contact Info) Description 09/16/[address] [facility] - Main Lab 299 [facility] [place] [address] Farideh Garcia MD [address] [place] [address] Shortness of breath; Acute cough Social History [...] Procedure Name Priority Date/Time Associated Diagnosis Comments [id number], RSV, FLU A AND B QUALITATIVE RT-PCR, LOCAL REFERENCE LAB Routine 09/15/2024 12:00 PM EST Shortness of breath Acute cough documented in this encounter Results * [id number], RSV, Influenza A and B qualitative RT-PCR (09/15/2024 12:00 PM EST) SARS COV-2 Not Detected Not Detected LAB MOLECULAR DIAGNOSTICS METHOD 09/16/2024 12:35 PM EST [facility] LAB Comment: Disclaimer: The manner in which this information is used to guide patient care is the responsibility of the healthcare provider. Testing was performed using the VISEO m SARS-CoV-2 test. This test has been [...] for Healthcare Providers can be found at: https://www.fda.gov/media/560784/download Fact sheet for Patients can be found at: https://www.fda.gov/media/793809/download Influenza A PCR Not Detected Not Detected LAB MOLECULAR DIAGNOSTICS METHOD 09/16/2024 12:35 PM EST [facility] Influenza B PCR Not Detected Not Detected LAB MOLECULAR DIAGNOSTICS METHOD 09/16/2024 12:35 PM [facility] RSV PCR Not Detected Not Detected LAB MOLECULAR DIAGNOSTICS METHOD 09/16/2024 12:35 PM [facility] Swab Nasopharyngeal structure / Unknown 09/15/2024 12:00 PM EST 09/16/2024 9:43 AM EST Farideh Garcia MD LAB MICROBIOLOGY - GENERAL ORDER ITZEL Final Result [facility] [address] [place] [address], documented in this encounter Visit Diagnoses Diagnosis Shortness of breath Acute cough documented in this encounter Additional Health Concerns Infection Onset Date Last Indicated Resolved Time Respiratory Rule-Out 09/16/2024 09/15/2024 025 12:35 PM EST documented as of this encounter Care Teams Chief Wheelage Clerk Relationship Specialty Start Date End Date Farideh Garcia MD [address] [facility] [address] [place] [address] PCP - General Geriatric Medicine 09/16/24 documented as of this encounter
--- OUTSIDE RECORDS SUMMARY | 2024-11-18 14:32 | XMS_ITS | Encounter Summary ---
Author Organization [facility] Address [address] [place] [address] Care Team Providers Care Real Estate Officer Name Role Phone Farideh Garcia MD Primary Care Provider [phone] Encounter Details Date Type Department Care Team (Late st Contact Info) Description 08/21/2024 Lab Requisition [facility] - Main Lab [address] [place] [address] Kris Osorio MD [address] [place] [address] Essential (primary) hypertension Social History Tobacco Use [...] LAB CHEMISTRY METHOD 08/22/2024 10:[address] [facility] Potassium 3.5 3.5 - 5.5 mmol/L LAB CHEMISTRY METHOD 08/22/2024 10:[address] [facility] Chloride 105 96 - 110 mmol/L LAB CHEMISTRY METHOD 08/22/2024 10:[address] [facility] CO2 31 21 - 32 mmol/L LAB CHEMISTRY METHOD 08/22/2024 10:42 AM [facility] Anion Gap 6 3 - 11 LAB CHEMISTRY METHOD 08/22/2024 10:42 AM [facility] Glucose 124(H) 70 - 100 mg/dL LAB CHEMISTRY METHOD 08/22/2024 10:42 AM [facility] BUN 16 5 - 25 mg/dL LAB CHEMISTRY METHOD 08/22/2024 10:42 AM [facility] Creatinine 0.61(L) 0.70 - 1.30 mg/dL LAB CHEMISTRY METHOD 08/22/2024 10:42 AM [facility] eGFR 100 >=60 mL/min/1. 73m2 LAB CHEMISTRY METHOD 08/22/2024 10:42 AM [facility] Comment:Calculation based on the??Chronic Kidney Disease Epidemiology Collaboration (CKD-EPI) equation refit??without adjustment for race. BUN/Creatinine Ratio 26.2 LAB CHEMISTRY METHOD 08/22/2024 10:42 AM [facility] Calcium 8.4(L) 8.5 - 10.5 mg/dL LAB CHEMISTRY METHOD 08/22/2024 10:42 AM [facility] Blood Venous blood specimen / Unknown Venipuncture / Unknown 08/22/2024 5:29 AM EST 08/22/2024 10:05 AM EST us Kris Osorio MD LAB BLOOD ORDERABLES Final Res ult [facility] [address] [place] [address], documented in this encounter Visit Diagnoses Diagnosis Essential (primary) hypertension Unspecified essential hypertension documented in this encounter Additional Health Concerns Infection Onset Date Last Indicated Resolved Time Respiratory Rule-Out 09/16/2024 09/15/2024 025 12:35 PM EST documented as of this encounter Care Teams Real Estate Officer Relationship Specialty Start Date End Date Farideh Garcia MD [address] [facility] [address] [place] [address] PCP - General Geriatric Medicine 09/16/24 documented as of this encounter
--- OUTSIDE RECORDS SUMMARY | 2024-11-18 14:32 | XMS_ITS | Clinical Summary ---
Author Organization 299 [facility] Address [address] [place] [address] Phone Care Team Providers Care Hand Spring Repairer Helper Name Role Phone Farideh Garcia MD Primary Care Provider [phone] Encounters Date Type Department Care Team Description 10/21/2024 Lab Requisition [facility] Lab [address] [place] [phone] Farideh Garcia MD Vitamin D deficiency, unspecified 09/23/2024 Lab Requisition [facility] Lab [address] [place] [phone] Kris Osorio MD Benign prostatic hyperplasia without lower urinary tract symptoms; Vitamin D deficiency, unspecified; Essential (primary) hypertension 09/16/2024 Lab Requisition [facility] [address] [place] [phone] Farideh Garcia MD Shortness of breath; Acute cough 08/21/2024 Lab Requisition [facility] [address] [place] [phone] Kris Osorio MD Essential (primary) hypertension from [...] DTaP,Tdap,and Td Vaccines (1 - Tdap) 1967 Pneumococcal Vaccine: 50+ Years (1 of 1 - PCV) 1998 Zoster Vaccines (1 of 2) 1998 RSV Immunization Patients 60 + Years Old [...] patient's age to complete this topic Meningococcal B Vacine Aged Out No lo nger eligible based on patient's age to complete this topic RSV Immunization Patients Under 20 months Aged Out No longer eligible b ased on patient's age to complete this topic Varicella Vaccines Aged Out No longer eligible based on patient's age to complete this topic Procedures Procedure Name Priority Date/Time Associated Diagnosis Comments VITAMIN D 25 HYDROXY Routine 10/22/2024 5:45 AM EST Vitamin D deficiency, unspecified VITAMIN D 25 HYDROXY Routine 09/24/2024 6:55 [...] Vitamin D deficiency, unspecified Essential (primary) hypertension [id number], RSV, FLU A AND B QUALITATIVE RT-PCR, LOCAL REFERENCE LAB Routine 09/15/2024 12:00 PM EST Shortness of breath Acute cough BASIC METABOLIC PANEL Routine 08/22/2024 5:29 AM EST Essential (primary) hypertension from Last 3 Months Results * Vitamin D 25 hydroxy (10/22/2024 5:45 AM EST) Only the most recent of2 resultswithin the time period is included. [facility] Vit D, 25-Hydroxy 61.8 30.0 - 80.0 ng/mL LAB CHEMISTRY METHOD 10/22/2024 12:24 PM EST [facility] Blood Venous blood specimen / Unknown Venipuncture / Unknown 10/22/2024 5:45 AM EST 10/22/2024 11:10 AM EST us Farideh Garcia MD LAB BLOOD ORDERABLES Final Resul t [facility] [address] [place] [address], [place] [phone] * (ABNORMAL) Complete blood count (09/24/2024 6:55 AM EST) [facility] WBC 8.9 4.8 - 10.8 K/[facility] LAB HEMETOLOGY METHOD 09/24/2024 10:37 AM EST [facility] RBC 4.60 4.50 - 5.50 M/[facility] LAB HEMETOLOGY METHOD 09/24/2024 10:37 AM [facility] [...] pcg LAB HEMETOLOGY METHOD 09/24/2024 10:37 AM [facility] MCHC 31.8(L) 32.0 - 37.0 g/dL LAB HEMETOLOGY METHOD 09/24/2024 10:37 AM [facility] RDW 13.7 11.0 - 15.0 % LAB HEMETOLOGY METHOD 09/24/2024 10:37 AM [facility] Platelets 194 130 - 400 [...] MD LAB BLOOD ORDERABLES Final Res ult [facility] [address] [place] [address], [place] [phone] * Magnesium (09/24/2024 6:55 AM EST) Magnesium 2.3 1.9 - 2.6 mg/dL LAB CHEMISTRY METHOD 09/24/2024 11:04 AM EST [facility] Blood Venous blood specimen / Unknown Venipuncture / Unknown 09/24/2024 6:55 AM EST 09/24/2024 10:15 AM EST Kris Osorio MD LAB BLOOD ORDERABLES Final Res ult Performing Organization Address [facility]/ZIP Co de Phone Number [facility] [address] [place] [address], [place] [phone] * (ABNORMAL) Folate (09/24/2024 6:55 AM EST) Pathologist [facility] Folate >20.0(H) 2.8 - 17.0 ng/ml LAB CHEMISTRY METHOD 09/24/2024 11:15 AM EST [facility] Blood Venous blood specimen / Unknown Venipuncture / Unknown 09/24/2024 6:55 AM EST 09/24/2024 10:15 AM EST Kris Osorio MD LAB BLOOD ORDERABLES Final Res ult Performing Organization Address City/[facility]/ZIP Co de Phone Number [facility] [address] [place] [address], [place] [phone] * (ABNORMAL) Comprehensive metabolic panel (09/24/2024 6:55 AM EST) Sodium 139 133 - 145 mmol/L LAB CHEMISTRY METHOD 09/24/2024 11:15 AM EST [facility] Potassium 3.9 3.5 - 5.5 mmol/L [...] g/dL LAB CHEMISTRY METHOD 09/24/2024 11:15 AM EST [facility] Albumin 3.3 3.2 - 5.0 g/dL LAB CHEMISTRY METHOD 09/24/2024 11:15 AM EST [facility] Total Bilirubin 0.2 0.0 - 1.4 mg/dL LAB CHEMISTRY METHOD 09/24/2024 11:15 AM EST [facility] Blood Venous blood specimen / Unknown Venipuncture / Unknown 09/24/2024 6:55 AM EST 09/24/2024 10:15 AM EST us Kris Osorio MD LAB BLOOD ORDERABLES Final Res ult [facility] [address] [place] [address], * [id number], RSV, Influenza A and B qualitative RT-PCR (09/15/2024 12:00 PM EST) Pathologist [facility] SARS COV-2 Not Detected Not Detected LAB MOLECULAR DIAGNOSTICS METHOD 09/16/2024 12:35 PM EST [facility] Comment: Disclaimer: The manner in which this information is used to guide patient care is the responsibility of the healthcare provider. Testing was performed using the [place] [employer] m SARS-CoV-2 test. This test has [...] for Healthcare Providers can be found at: https://www.fda.gov/media/592770/download Fact sheet for Patients can be found at: https://www.fda.gov/media/905557/download Influenza A PCR Not Detected Not Detected LAB MOLECULAR DIAGNOSTICS METHOD 09/16/2024 12:35 PM [facility] Influenza B PCR Not Detected Not Detected LAB MOLECULAR DIAGNOSTICS METHOD 09/16/2024 12:35 PM [facility] RSV PCR Not Detected Not Detected LAB MOLECULAR DIAGNOSTICS METHOD 09/16/2024 12:35 PM [facility] Swab Nasopharyngeal structure / Unknown 09/15/2024 12:00 PM EST 09/16/2024 9:43 AM EST us Farideh Garcia MD LAB MICROBIOLOGY - GENERAL ORDER ITZEL Final Result [facility] [address] [place] [address], [place] [phone] * (ABNORMAL) Basic metabolic panel (08/22/2024 5:29 [...] mg/dL LAB CHEMISTRY METHOD 08/22/2024 10:42 AM EST [facility] eGFR 100 >=60 mL/min/1. 73m2 LAB CHEMISTRY METHOD 08/22/2024 10:42 AM EST [facility] Comment:Calculation based on the??Chronic Kidney Disease Epidemiology Collaboration (CKD-EPI) equation refit??without adjustment for race. BUN/Creatinine Ratio 26.2 LAB CHEMISTRY METHOD 08/22/2024 10:42 AM EST [facility] Calcium 8.4(L) 8.5 - 10.5 mg/dL LAB CHEMISTRY METHOD 08/22/2024 10:42 AM [facility] Blood Venous blood specimen / Unknown Venipuncture / Unknown 08/22/2024 5:29 AM EST 08/22/2024 10:05 AM EST us Kris Osorio MD LAB BLOOD ORDERABLES Final Res ult [facility] [address] [place] [address], [place] [phone] from Last 3 Months Insurance MEDICARE MEDICAID - [place] Care Teams Hand Spring Repairer Helper Relationship Specialty Start Date End Date Farideh Garcia MD [address] [place] [address] [address] [place] [address] PCP - General Geriatric Medicine 09/16/24
--- OUTSIDE RECORDS SUMMARY | 2024-11-18 14:32 | XMS_ITS | Encounter Summary ---
Author Organization [facility] Address [address] [place] [address] Care Team Providers Care Lead Warehouse Associate Name Role Phone Farideh Garcia MD Primary Care Provider [phone] Encounter Details Date Type Department Care Team (Late st Contact Info) Description 10/21/2024 Lab Requisition [facility] - Main Lab [address] [facility] [place] [address] Farideh Garcia MD [address] [place] [address] Vitamin D deficiency, unspecified Social History Tobacco Use Types Packs/Day Years [...] 5:45 AM EST Vitamin D deficiency, unspecified documented in this encounter Results * Vitamin D 25 hydroxy (10/22/2024 5:45 AM EST) Vit D, 25-Hydroxy 61.8 30.0 - 80.0 ng/mL LAB CHEMISTRY METHOD 10/22/2024 12:24 PM EST [facility] ([facility]) [facility] Blood Venous blood specimen / Unknown Venipuncture / Unknown 10/22/2024 5:45 AM EST 10/22/2024 11:10 AM EST us Farideh Garcia MD LAB BLOOD ORDERABLES Final Resul t [facility] ([facility] H[facility] LAB [address] [place] [address], documented in this encounter Visit Diagnoses Diagnosis Vitamin D deficiency, unspecified documented in this encounter Care Teams Lead Warehouse Associate Relationship Specialty Start Date End Date Farideh Garcia MD [address] [place] [address] [address] [place] [address] PCP - General Geriatric Medicine 09/16/24 documented as of this encounter
== END 2024-11-18 13:08 | disposition home or self-care (01) ==
LOC: HO.HMCH 12:18
PROVIDERS: PCP Internal Medicine; Visit Provider Internal Medicine
DX: I10 Essential (primary) hypertension (principal); G95.20 Unspecified cord compression; G81.12 Spastic hemiplegia affecting left dominant side; I69.351 Hemiplegia and hemiparesis following cerebral infarction affecting right dominant side; I73.9 Peripheral vascular disease, unspecified; F33.0 Major depressive disorder, recurrent, mild; M79.7 Fibromyalgia; I63.9 Cerebral infarction, unspecified

== ENCOUNTER → 2024-11-18 12:17 | Outpatient (BNVA) | payer MEDICARE, MEDICAID, SELFPAY | PROVIDERS: PCP Internal Medicine; Visit Provider Internal Medicine | DX: I10 Essential (primary) hypertension (principal); G95.20 Unspecified cord compression; G81.12 Spastic hemiplegia affecting left dominant side; I73.9 Peripheral vascular disease, unspecified; F33.0 Major depressive disorder, recurrent, mild; M79.7 Fibromyalgia; I63.9 Cerebral infarction, unspecified | CPT/HCPCS: 96127; 99212 ==

== ENCOUNTER 2024-12-10 10:26 | Outpatient (AMB) | payer MEDICARE, MEDICAID, SELFPAY ==
--- NOTE | 2024-12-10 10:37 | MHC.OFFVIS ---
Intake Visit Reasons: 6m/PSA/PVR Intake Note: Patient is present for a 6 month follow up/PSA/PVR Urology Medications: terazosin, finasteride Blood Thinner: none Drain Tile Press Operator Required: Yes Drain Tile Press Operator Services: Drain Tile Press Operator Present Drain Tile Press Operator Name: BOGDAN LUCIANOPREETI Accompanied by: caregiver Allergies Penicillins Allergy (Severe, Verified 12/10/24 11:43) Rash tramadol Allergy (Unknown, Verified 12/10/24 11:43) inadequate response Medication List - Last Reconciled 12/10/24 by NEW Mckeon acetaminophen 975 mg PO TID amlodipine 5 mg PO DAILY 90 days baclofen 5 mg PO Q8-10H PRN baclofen 15 mg PO TID bisacodyl 10 mg [place] DAILY PRN chlorhexidine gluconate 0.12% (Periogard) 15 mL buccal DAILY diclofenac sodium 1% 4 grams topical QID docusate sodium (Colace) 200 mg PO BID duloxetine 30 mg PO BID 30 days finasteride 5 mg PO BEDTIME folic acid 1 mg PO DAILY guaifenesin 400 mg PO Q6H PRN magnesium hydroxide (Milk of Magnesia) 30 mL PO DAILY PRN magnesium oxide 400 mg PO DAILY omeprazole 20 mg PO DAILY 90 days oxycodone 5 mg PO Q8H PRN 30 days pregabalin 75 mg PO TID 30 days sennosides (senna) 8.6 mg PO BEDTIME terazosin 8 mg PO BEDTIME thiamine HCl (vitamin B1) 100 mg PO DAILY trazodone 25 mg PO BEDTIME HPI Comments Details: Jose is a pleasant 74 year old Greek-speaking male patient Dr. Mendez who was accompanied by one of the CNAs at [facility] where the patient resides. He has a PMH of GERD, BPH and polyarthralgias secondary to fibromyalgia. He presents to the office today for a follow up of his elevated PSA and lower urinary tract symptoms. In discussion with the patient today he reports to be doing and feeling well. When asked he does report intermittent episodes of dysuria however is vague at times throughout today's appointment. Patient was last seen approximately 6 months ago at which time recommendations were made for a PSA prior to today's appointment however this was not completed. We discussed importance in doing so. Call today [facility] however unable to get through. Relayed importance of obtaining PSA and urinalysis for further assessment evaluation to patient's BATTERY SERVICE TECHNICIAN who is accompanied by the patient today. Previous workup has included a retroperitoneal ultrasound 03/11 noting bilateral kidneys with no calculi, lesions, and or hydronephrosis noted. The bladder is partially distended. There is notable focal thickening along the posterior wall of the bladder. The prostate gland is enlarged measuring approximately 55 mL. PSAs: 09/11 7.2, 6.1, 03/11 5.5, 06/11 3.7 PSA free 19%, 10/13 2.7, 06/12 2.2 In review of patient's MAR it appears patient is compliant with terazosin 8 mg at bedtime and finasteride 5 mg daily. Unable to obtain urine for urinalysis however PVR 5mL. Patient discusses at length his arthritis and arthritic/fibromyalgia pain he experiences to his extremities in his upcoming surgical procedure tomorrow. When asked patient denies urinary urgency, urinary frequency, incontinence, nocturia, hematuria, foul smelling urine, changes to urinary stream, flank pain, fever, and or chills. Patient otherwise denies any issues or concerns at this time. [facility] Medical History Hx of varicose veins Depression COVID-19 Numbness HTN (hypertension) Spastic hemiparesis of left dominant side Spastic hemiplegia affecting right dominant side Spastic hemiparesis affecting dominant side Contracture, left hand Bilateral knee contractures Elevated PSA Moderate major depression Insomnia Fibromyalgia GERD (gastroesophageal reflux disease) Hypovitaminosis D Lumbar degenerative disc disease Surgical History Hx of varicose vein ligation and stripping History of prostate surgery History of shoulder surgery History of laminectomy Family History Father Diabetes Hypertension Liver cancer Mother Diabetes Hypertension Stroke Other Substance use disorder Social History Housing: House Are you a primary career and transition teacher to a significant other at home: No Do you presently have visiting nurse or other home services: No Alcohol intake: former Patient Tobacco Use Status: Former Tobacco user Cigarettes Per Day: 3 e-Cigarette/Vaping Use: Never Used Second Hand Smoke Exposure: No Advance Directives Date on File: 09/06/22 service: No Current occupational status: disabled Cognitive needs: Yes (cane) Hearing needs: No Vision needs: Yes (reading glasses) Review of Systems Const Reports as per [facility] Eyes Reports no additional complaints ENT Reports no additional complaints Card Reports no additional complaints Resp Reports no additional complaints GI Reports as per [facility] Reports as per HPI Musc Reports as per [facility] Neuro Reports as per HPI Psych Reports no additional complaints Endo Reports no additional complaints Seven/Lymph Reports no additional complaints Physical Exam Const General: cooperative, comfortable, no acute distress, well developed, alert and awake Orientation/consciousness: patient oriented x3 Limitations: wheelchair HEENT Head: Yes normal to inspection, Yes normocephalic and Yes atraumatic Ears: hearing grossly normal bilaterally Eyes General: appearance normal, both eyes and all related structures Neck Neck: Yes normal visual inspection and Yes trachea midline Chest Chest palpation & inspection: normal inspection of the chest Resp Effort & Inspection: normal respiratory effort and able to speak in complete sentences Cardio Rate: regular rate GI Inspection: Yes normal to inspection General: Yes no CVA tenderness Back/Spine/Pelvis Back: no CVA tenderness Skin General skin exam: no rashes or lesions noted Neuro General: patient oriented x3 Extrem General: Yes normal to inspection Psych Appearance: grossly normal and well kempt Mental Status: mental status grossly normal Speech and movement: Normal speech and movement present and Clear speech present Affect: normal affect Attitude: cooperative Thought process: Normal thought process present Thought content: Normal thought content present Insight: Fair insight present (Psych) Judgement: Fair judgement present (Psych) Assessment & Plan Assessment & Plan (1) Enlarged prostate with lower urinary tract symptoms (LUTS): Code(s): N40.1 - Benign prostatic hyperplasia with lower urinary tract symptoms Category: Medical (2) Elevated PSA: Code(s): R97.20 - Elevated prostate specific antigen [PSA] Category: Medical Plan Unable to obtain urine for urinalysis however PVR 5 mL We discussed importance of obtaining urinalysis and PSA as ordered during last office visit. We discussed importance of timed/scheduled voiding given decreased mobility Continue terazosin finasteride as prescribed. Follow-up in 3 months with PSA and urinalysis to be completed prior; or sooner with any issues, concerns, and or questions. Orders: Orders AMB Post Void Residual by ultrasound Today N40.1 - Benign prostatic hyperplasia with lower urinary tract symptoms Patient Instructions: The patient had an opportunity to ask questions regarding the treatment plan. All questions were answered. Physical exam, labs, and imaging were discussed and reviewed in detail. As well as risks, benefits, and discussion of treatment choices. No major barriers to understanding were identified. The patient expressed understanding and agreement with the above treatment plan. The patient was made aware they should contact our office by phone for worsening of their current condition, the appearance of new symptoms, or with any questions or concerns. Compliance is encouraged with any medications and follow up testing that is ordered. It is a privilege to be allowed the opportunity to participate in? your urological care.? Again, if you have any questions or concerns If you have any questions or concerns please do not hesitate to contact me. The office is [phone]. This note is constructed using voice recognition software. While every effort has been made to ensure accuracy centerless grinding machine adjuster errors may have been included. Yours sincerely, NEW Mckeon Coding Level of Care Code Est Pt Level 3 (12330) Complex EM visit Add On G2211 Diagnoses Enlarged prostate with lower urinary tract symptoms (LUTS) N40.1 Elevated PSA R97.20
--- OUTSIDE RECORDS SUMMARY | 2024-12-10 12:16 | XMS_ITS | Encounter Summary ---
Author Organization [facility] Address [address] [place] [address] Care Team Providers Care Dietary Director Name Role Phone Farideh Garcia MD Primary Care Provider [phone] Encounter Details Date Type Department Care Team (Late st Contact Info) Description 08/21/2024 Lab Requisition [facility] - Main Lab [address] [place] [address] Kris Osorio MD [address] [place] [id number] Essential (primary) hypertension Social History Tobacco Use [...] LAB CHEMISTRY METHOD 08/22/2024 10:42 AM EST [facility] Potassium 3.5 3.5 - 5.5 mmol/L LAB CHEMISTRY METHOD 08/22/2024 10:42 AM EST [facility] Chloride 105 96 - 110 mmol/L LAB CHEMISTRY METHOD 08/22/2024 10:42 AM EST [facility] CO2 31 21 - 32 mmol/L LAB CHEMISTRY METHOD 08/22/2024 10:42 AM [facility] Anion Gap 6 3 - 11 LAB CHEMISTRY METHOD 08/22/2024 10:42 AM [facility] Glucose 124(H) 70 - 100 mg/dL LAB CHEMISTRY METHOD 08/22/2024 10:42 AM [facility] BUN 16 5 - 25 mg/dL LAB CHEMISTRY METHOD 08/22/2024 10:42 AM [facility] Creatinine 0.61(L) 0.70 - 1.30 mg/dL LAB CHEMISTRY METHOD 08/22/2024 10:42 AM [facility] eGFR 100 >=60 mL/min/1. 73m2 LAB CHEMISTRY METHOD 08/22/2024 10:42 AM [facility] Comment:Calculation based on the??Chronic Kidney Disease Epidemiology Collaboration (CKD-EPI) equation refit??without adjustment for race. BUN/Creatinine Ratio 26.2 LAB CHEMISTRY METHOD 08/22/2024 10:42 AM [facility] Calcium 8.4(L) 8.5 - 10.5 mg/dL LAB CHEMISTRY METHOD 08/22/2024 10:42 AM [facility] Blood Venous blood specimen / Unknown Venipuncture / Unknown 08/22/2024 5:29 AM EST 08/22/2024 10:05 AM EST us Kris Osorio MD LAB BLOOD ORDERABLES Final Res ult [facility] [address] [place] [address], documented in this encounter Visit Diagnoses Diagnosis Essential (primary) hypertension Unspecified essential hypertension documented in this encounter Additional Health Concerns Infection Onset Date Last Indicated Resolved Time Respiratory Rule-Out 09/16/2024 09/15/2024 025 12:35 PM EST documented as of this encounter Care Teams Dietary Director Relationship Specialty Start Date End Date Farideh Garcia MD [address] [facility] [address] [place] [address] PCP - General Geriatric Medicine 09/16/24 documented as of this encounter
--- OUTSIDE RECORDS SUMMARY | 2024-12-10 12:16 | XMS_ITS | Clinical Summary ---
Author Organization [facility] Address [address] [place] [address] Phone Care Team Providers Care Heavy Coil Winder Name Role Phone Farideh Garcia MD Primary Care Provider [phone] Encounters Date Type Department Care Team Description 10/21/2024 Lab Requisition [facility] [address] [place] [phone] Farideh Garcia MD Vitamin D deficiency, unspecified 09/23/2024 Lab Requisition [facility] [address] [place] [phone] Kris Osorio MD Benign prostatic hyperplasia without lower urinary tract symptoms; Vitamin D deficiency, unspecified; Essential (primary) hypertension 09/16/2024 Lab Requisition [facility] [address] [place] [phone] Farideh Garcia MD Shortness of breath; Acute cough from Last 3 Months Social History Tobacco [...] Vaccines (1 of 2) 1998 RSV Immunization Adult Patients (1 - 1-dose 75+ series) 2023 Cholesterol Screening (Lipid Panel) 09/14/2023 Depression Screening 09/14/2023 Falls Risk Assessment 09/14/2023 Hepatitis C Screening 09/14/2023 Medicare Annual Wellness Visit 09/14/2023 Social Influencers of Health Screening 09/14/2023 COVID-19 Vaccine (2023-2 5 season) 2024 Influenza Vaccine (Season Ended) 2025 Hypertension/CHF/CAD Annual BMP Blood Test 09/24/2025 09/24/2024, [...] age to complete this topic Meningococcal B Vaccine Aged Out No l onger eligible based on patient's age to complete [...] Vitamin D deficiency, unspecified Essential (primary) hypertension [id number], RSV, FLU A AND B QUALITATIVE RT-PCR, LOCAL REFERENCE LAB Routine 09/15/2024 12:00 PM EST Shortness of breath Acute cough from Last 3 Months Results * Vitamin D 25 hydroxy (10/22/2024 5:45 AM EST) Only the most recent of2 resultswithin the time period is included. Vit D, 25-Hydroxy 61.8 30.0 - 80.0 ng/mL LAB CHEMISTRY METHOD 10/22/2024 12:24 PM EST [facility] Blood Venous blood specimen / Unknown Venipuncture / Unknown 10/22/2024 5:45 AM EST 10/22/2024 11:10 AM EST us Farideh Garcia MD LAB BLOOD ORDERABLES Final Resul t [facility] [address] [place] [address], [place] [phone] * (ABNORMAL) Complete blood count (09/24/2024 6:55 AM EST) WBC 8.9 4.8 - 10.8 K/mcL LAB HEMETOLOGY METHOD 09/24/2024 10:37 AM EST [facility] RBC 4.60 4.50 - 5.50 M/mcL LAB HEMETOLOGY METHOD 09/24/2024 10:[address] [facility] Hemoglobin 12.3(L) 13.5 - 17.5 g/dL LAB HEMETOLOGY METHOD 09/24/2024 10:37 AM EST [facility] Hematocrit 38.7(L) 42.0 - 54.0 % LAB HEMETOLOGY METHOD 09/24/2024 10:37 AM EST [facility] MCV 84.7 79.0 - 98.0 FL LAB HEMETOLOGY METHOD 09/24/2024 10:37 AM EST [facility] MCH 26.9(L) 27.0 - 32.0 pcg LAB HEMETOLOGY METHOD 09/24/2024 10:37 AM EST [facility] MCHC 31.8(L) 32.0 - 37.0 g/dL LAB HEMETOLOGY METHOD 09/24/2024 10:37 AM EST [facility] RDW 13.7 11.0 - 15.0 % LAB HEMETOLOGY METHOD 09/24/2024 10:37 AM EST [facility] Platelets 194 130 - 400 K/mcL LAB HEMETOLOGY METHOD 09/24/2024 10:37 AM EST [facility] MPV 10.3 7.0 - 11.0 FL LAB HEMETOLOGY METHOD 09/24/2024 10:37 AM EST [facility] NRBC 0.2 <1.0 % LAB HEMETOLOGY METHOD 09/24/2024 10:37 AM EST [facility] NRBC Absolute 0.02 <0.10 K/mcL LAB HEMETOLOGY METHOD 09/24/2024 10:[address] [facility] Blood Venous blood specimen / Unknown Venipuncture / Unknown 09/24/2024 6:55 AM EST 09/24/2024 10:15 AM EST us Kris Osorio MD LAB BLOOD ORDERABLES Final Res ult [facility] [address] [place] [address], * Magnesium (09/24/2024 6:55 AM EST) Magnesium 2.3 1.9 - 2.6 mg/dL LAB CHEMISTRY METHOD 09/24/2024 11:04 AM EST [facility] Blood Venous blood specimen / Unknown Venipuncture / Unknown 09/24/2024 6:55 AM EST 09/24/2024 10:15 AM EST Kris Osorio MD LAB BLOOD ORDERABLES Final Res ult Performing Organization Address [facility]/ZIP Co de Phone Number [facility] [address] [place] [address], [place] [phone] * (ABNORMAL) Folate (09/24/2024 6:55 AM EST) Pathologist [facility] Folate >20.0(H) 2.8 - 17.0 ng/ml LAB CHEMISTRY METHOD 09/24/2024 11:[address] [facility] Blood Venous blood specimen / Unknown Venipuncture / Unknown 09/24/2024 6:55 AM EST 09/24/2024 10:15 AM EST us Kris Osorio MD LAB BLOOD ORDERABLES Final Res ult Performing Organization Address [facility] Co de Phone Number [facility] [address] [place] [address], [place] [phone] * (ABNORMAL) Comprehensive metabolic panel (09/24/2024 6:55 AM EST) Pathologist [facility] Sodium 139 133 - 145 mmol/L LAB CHEMISTRY METHOD 09/24/2024 11:[address] [facility] Potassium 3.9 3.5 - 5.5 mmol/L LAB CHEMISTRY METHOD 09/24/2024 11:[address] [facility] Chloride 103 96 - 110 mmol/L LAB CHEMISTRY METHOD 09/24/2024 11:[address] [facility] CO2 33(H) 21 - 32 mmol/L LAB CHEMISTRY METHOD 09/24/2024 11:[address] [facility] Anion Gap 3 3 - 11 LAB CHEMISTRY METHOD 09/24/2024 11:[address] [facility] Glucose 104(H) 70 - 100 mg/dL LAB CHEMISTRY METHOD 09/24/2024 11:[address] [facility] BUN 17 5 - 25 mg/dL LAB CHEMISTRY METHOD 09/24/2024 11:[address] [facility] Creatinine 0.57(L) 0.70 - 1.30 mg/dL LAB CHEMISTRY METHOD 09/24/2024 11:[address] [facility] eGFR 102 >=60 mL/min/1. 73m2 LAB CHEMISTRY METHOD 09/24/2024 11:[address] [facility] Comment:Calculation based on the??Chronic Kidney Disease Epidemiology Collaboration (CKD-EPI) equation refit??without adjustment for race. BUN/Creatinine Ratio 29.8 LAB CHEMISTRY METHOD 09/24/2024 11:[address] [facility] Calcium 8.7 8.5 - 10.5 mg/dL LAB CHEMISTRY METHOD 09/24/2024 11:[address] [facility] AST (SGOT) 21 10 - 42 unit/L LAB CHEMISTRY METHOD 09/24/2024 11:[address] [facility] ALT (SGPT) 38 10 - 60 unit/L LAB CHEMISTRY METHOD 09/24/2024 11:[address] [facility] Alkaline Phosphatase 102 42 - 121 unit/L LAB CHEMISTRY METHOD 09/24/2024 11:[address] [facility] Total Protein 6.0 6.0 - 8.0 g/dL LAB CHEMISTRY METHOD 09/24/2024 11:[address] [facility] Albumin 3.3 3.2 - 5.0 g/dL LAB CHEMISTRY METHOD 09/24/2024 11:[address] [facility] Total Bilirubin 0.2 0.0 - 1.4 mg/dL LAB CHEMISTRY METHOD 09/24/2024 11:[address] [facility] Blood Venous blood specimen / Unknown Venipuncture / Unknown 09/24/2024 6:55 AM EST 09/24/2024 10:15 AM EST Kris Osorio MD LAB BLOOD ORDERABLES Final Res ult [facility] [address] [place] [address], * [id number], RSV, Influenza A and B qualitative RT-PCR (09/15/2024 12:00 PM EST) Pathologist [facility] SARS COV-2 Not Detected Not Detected LAB MOLECULAR DIAGNOSTICS METHOD 09/16/2024 12:[address] [facility] Comment: Disclaimer: The manner in which this information is used to guide patient care is the responsibility of the healthcare provider. Testing was performed using the [employer] m SARS-CoV-2 test. This test has [...] for Healthcare Providers can be found at: https://www.fda.gov/media/638970/download Fact sheet for Patients can be found at: https://www.fda.gov/media/346669/download Influenza A PCR Not Detected Not Detected LAB MOLECULAR DIAGNOSTICS METHOD 09/16/2024 12:35 PM EST [facility] Influenza B PCR Not Detected Not Detected LAB MOLECULAR DIAGNOSTICS METHOD 09/16/2024 12:35 PM EST [facility] RSV PCR Not Detected Not Detected LAB MOLECULAR DIAGNOSTICS METHOD 09/16/2024 12:35 PM EST [facility] Swab Nasopharyngeal structure / Unknown 09/15/2024 12:00 PM EST 09/16/2024 9:43 AM EST Farideh Garcia MD LAB MICROBIOLOGY - GENERAL ORDER ITZEL Final Result [facility] ([facility]) [facility] [address] [place] [address], from Last 3 Months Insurance MEDICARE MEDICAID - [place] Care Teams Heavy Coil Winder Relationship Specialty Start Date End Date Farideh Garcia MD [address] [place] [address] [address] [place] [address] PCP - General Geriatric Medicine 09/16/24
--- OUTSIDE RECORDS SUMMARY | 2024-12-10 12:16 | XMS_ITS | Encounter Summary ---
Author Organization [facility] Address [address] [place] [address] Care Team Providers Care Machine Stonecutter Name Role Phone Farideh Garcia MD Primary Care Provider [phone] Encounter Details Date Type Department Care Team (Late st Contact Info) Description 10/21/2024 Lab Requisition [facility] - [facility] Lab [address] [facility] [place] [address] Farideh Garcia MD [address] [place] [address] Vitamin D deficiency, unspecified Social History Tobacco [...] LAB CHEMISTRY METHOD 10/22/2024 12:24 PM EST [facility] ([facility]) [facility] Blood Venous blood specimen / Unknown Venipuncture / Unknown 10/22/2024 5:45 AM EST 10/22/2024 11:10 AM EST us Farideh Garcia MD LAB BLOOD ORDERABLES Final Resul t [facility] ([facility] H[facility] LAB [address] [place] [address], documented in this encounter Visit Diagnoses Diagnosis Vitamin D deficiency, unspecified documented in this encounter Care Teams Machine Stonecutter Relationship Specialty Start Date End Date Farideh Garcia MD [address] [place] [address] [address] [place] [address] PCP - General Geriatric Medicine 09/16/24 documented as of this encounter
--- OUTSIDE RECORDS SUMMARY | 2024-12-10 12:17 | XMS_ITS | Encounter Summary ---
Author Organization [facility] Address [address] [place] [address] Care Team Providers Care Household Worker Name Role Phone Farideh Garcia MD Primary Care Provider [phone] Encounter Details Date Type Department Care Team (Late st Contact Info) Description 09/16/2024 Lab Requisition [facility] - Main Lab [address] [facility] [place] [address] Farideh Garcia MD [address] [place] [address] Shortness of breath; Acute cough Social History [...] Procedure Name Priority Date/Time Associated Diagnosis Comments [id number], RSV, FLU A AND B QUALITATIVE RT-PCR, LOCAL REFERENCE LAB Routine 09/15/2024 12:00 PM EST Shortness of breath Acute cough documented in this encounter Results * [id number], RSV, Influenza A and B qualitative RT-PCR (09/15/2024 12:00 PM EST) SARS COV-2 Not Detected Not Detected LAB MOLECULAR DIAGNOSTICS METHOD 09/16/2024 12:35 PM EST [facility] LAB Comment: Disclaimer: The manner in which this information is used to guide patient care is the responsibility of the healthcare provider. Testing was performed using the [employer] m SARS-CoV-2 test. This test has been [...] for Healthcare Providers can be found at: https://www.fda.gov/media/861324/download Fact sheet for Patients can be found at: https://www.fda.gov/media/540539/download Influenza A PCR Not Detected Not Detected LAB MOLECULAR DIAGNOSTICS METHOD 09/16/2024 12:35 PM EST [facility] Influenza B PCR Not Detected Not Detected LAB MOLECULAR DIAGNOSTICS METHOD 09/16/2024 12:35 PM [facility] RSV PCR Not Detected Not Detected LAB MOLECULAR DIAGNOSTICS METHOD 09/16/2024 12:35 PM [facility] Swab Nasopharyngeal structure / Unknown 09/15/2024 12:00 PM EST 09/16/2024 9:43 AM EST Farideh Garcia MD LAB MICROBIOLOGY - GENERAL ORDER ITZEL Final Result [facility] [address] [place] [address], documented in this encounter Visit Diagnoses Diagnosis Shortness of breath Acute cough documented in this encounter Additional Health Concerns Infection Onset Date Last Indicated Resolved Time Respiratory Rule-Out 09/16/2024 09/15/2024 025 12:35 PM EST documented as of this encounter Care Teams Household Worker Relationship Specialty Start Date End Date Farideh Garcia MD [address] [facility] [address] [place] [address] PCP - General Geriatric Medicine 09/16/24 documented as of this encounter
--- OUTSIDE RECORDS SUMMARY | 2024-12-10 12:17 | XMS_ITS | Encounter Summary ---
Author Organization [employer] Address [address] [place] [address] Care Team Providers Care Tech Brazer Tester Name Role Phone Farideh Garcia MD Primary Care Provider [phone] Encounter Details Date Type Department Care Team (Late st Contact Info) Description 09/23/2024 Lab Requisition [facility] - Main Lab [address] [facility] [place] [address] Kris Osorio MD [address] [place] [id number] Benign prostatic hyperplasia without lower urinary tract [...] LAB CHEMISTRY METHOD 09/24/2024 11:13 AM EST [facility] Blood Venous blood specimen / Unknown Venipuncture / Unknown 09/24/2024 6:55 AM EST 09/24/2024 10:15 AM EST Kris Osorio MD LAB BLOOD ORDERABLES Final Res ult Performing Organization Address [facility]/ZIP Co de Phone Number [facility] [address] [place] [address], * Magnesium (09/24/2024 6:55 AM EST) Pathologist [facility] Magnesium 2.3 1.9 - 2.6 mg/dL LAB CHEMISTRY METHOD 09/24/2024 11:04 AM EST [facility] Blood Venous blood specimen / Unknown Venipuncture / Unknown 09/24/2024 6:55 AM EST 09/24/2024 10:15 AM EST Kris Osorio MD LAB BLOOD ORDERABLES Final Res ult [facility] [address] [place] [address], * (ABNORMAL) Folate (09/24/2024 6:55 AM EST) Pathologist [facility] Folate >20.0(H) 2.8 - 17.0 ng/ml LAB CHEMISTRY METHOD 09/24/2024 11:15 AM EST [facility] Blood Venous blood specimen / Unknown Venipuncture / Unknown 09/24/2024 6:55 AM EST 09/24/2024 10:15 AM EST Kris Osorio MD LAB BLOOD ORDERABLES Final Res ult [facility] [address] [place] [address], * (ABNORMAL) Comprehensive metabolic panel (09/24/2024 6:55 AM EST) Sodium 139 133 - 145 mmol/L LAB CHEMISTRY METHOD 09/24/2024 11:15 AM [facility] Potassium 3.9 3.5 - 5.5 mmol/L LAB CHEMISTRY METHOD 09/24/2024 11:15 AM [facility] Chloride 103 96 - 110 mmol/L LAB CHEMISTRY METHOD 09/24/2024 11:15 AM [facility] CO2 33(H) 21 - 32 mmol/L LAB CHEMISTRY METHOD 09/24/2024 11:15 AM [facility] Anion Gap 3 3 - 11 LAB CHEMISTRY METHOD 09/24/2024 11:15 AM [facility] Glucose 104(H) 70 - 100 mg/dL LAB CHEMISTRY METHOD 09/24/2024 11:15 AM [facility] BUN 17 5 - 25 mg/dL LAB CHEMISTRY METHOD 09/24/2024 11:15 AM [facility] Creatinine 0.57(L) 0.70 - 1.30 mg/dL LAB CHEMISTRY METHOD 09/24/2024 11:15 AM [facility] eGFR 102 >=60 mL/min/1. 73m2 LAB CHEMISTRY METHOD 09/24/2024 11:15 AM [facility] Comment:Calculation based on the??Chronic Kidney Disease Epidemiology Collaboration (CKD-EPI) equation refit??without adjustment for race. BUN/Creatinine Ratio 29.8 LAB CHEMISTRY METHOD 09/24/2024 11:15 AM [facility] Calcium 8.7 8.5 - 10.5 mg/dL LAB CHEMISTRY METHOD 09/24/2024 11:15 AM [facility] AST (SGOT) 21 10 - 42 unit/L LAB CHEMISTRY METHOD 09/24/2024 11:15 AM [facility] ALT (SGPT) 38 10 - 60 unit/L LAB CHEMISTRY METHOD 09/24/2024 11:15 AM [facility] Alkaline Phosphatase 102 42 - 121 unit/L LAB CHEMISTRY METHOD 09/24/2024 11:15 AM [facility] Total Protein 6.0 6.0 - 8.0 g/dL LAB CHEMISTRY METHOD 09/24/2024 11:15 AM [facility] Albumin 3.3 3.2 - 5.0 g/dL LAB CHEMISTRY METHOD 09/24/2024 11:15 AM [facility] Total Bilirubin 0.2 0.0 - 1.4 mg/dL LAB CHEMISTRY METHOD 09/24/2024 11:15 AM [facility] Blood Venous blood specimen / Unknown Venipuncture / Unknown 09/24/2024 6:55 AM EST 09/24/2024 10:15 AM EST us Kris Osorio MD LAB BLOOD ORDERABLES Final Res ult [facility] [address] [place] [address], * (ABNORMAL) Complete blood count (09/24/2024 6:55 AM EST) WBC 8.9 4.8 - 10.8 K/mcL LAB HEMETOLOGY METHOD 09/24/2024 10:37 AM EST [facility] RBC 4.60 4.50 - 5.50 M/mcL LAB HEMETOLOGY METHOD 09/24/2024 10:37 AM [facility] Hemoglobin 12.3(L) 13.5 - 17.5 g/dL LAB HEMETOLOGY METHOD 09/24/2024 10:37 AM [facility] Hematocrit 38.7(L) 42.0 - 54.0 % LAB HEMETOLOGY METHOD 09/24/2024 10:37 AM [facility] MCV 84.7 79.0 - 98.0 FL LAB HEMETOLOGY METHOD 09/24/2024 10:37 AM [facility] MCH 26.9(L) 27.0 - 32.0 pcg LAB HEMETOLOGY METHOD 09/24/2024 10:37 AM [facility] MCHC 31.8(L) 32.0 - 37.0 g/dL LAB HEMETOLOGY METHOD 09/24/2024 10:37 AM [facility] RDW 13.7 11.0 - 15.0 % LAB HEMETOLOGY METHOD 09/24/2024 10:37 AM [facility] Platelets 194 130 - 400 K/mcL LAB HEMETOLOGY METHOD 09/24/2024 10:37 AM [facility] MPV 10.3 7.0 - 11.0 FL LAB HEMETOLOGY METHOD 09/24/2024 10:37 AM [facility] NRBC 0.2 <1.0 % LAB HEMETOLOGY METHOD 09/24/2024 10:37 AM [facility] NRBC Absolute 0.02 <0.10 K/mcL LAB HEMETOLOGY METHOD 09/24/2024 10:37 AM [facility] Blood Venous blood specimen / Unknown Venipuncture / Unknown 09/24/2024 6:55 AM EST 09/24/2024 10:15 AM EST rKis Osorio MD LAB BLOOD ORDERABLES Final Res ult [facility] ([facility]) [facility] [address] [place] [address], documented in this encounter Visit Diagnoses Diagnosis Benign prostatic hyperplasia without lower urinary tract symptoms Vitamin D deficiency, unspecified Essential (primary) hypertension Unspecified essential hypertension documented in this encounter Care Teams Tech Brazer Tester Relationship Specialty Start Date End Date Farideh Garcia MD [address] [place] [address] [address] [place] [address] PCP - General Geriatric Medicine 09/16/24 documented as of this encounter
== END 2024-12-10 11:19 | disposition home or self-care (01) ==
LOC: HO.HUSH 10:26
PROVIDERS: PCP Internal Medicine; Visit Provider Nurse Practitioner Family
DX: N40.1 Benign prostatic hyperplasia with lower urinary tract symptoms (principal); R97.20 Elevated prostate specific antigen [PSA]
CPT/HCPCS: 99213; G2211

== ENCOUNTER → 2024-12-10 10:26 | Outpatient (BNVA) | payer MEDICARE, MEDICAID, SELFPAY | PROVIDERS: PCP Internal Medicine; Visit Provider Nurse Practitioner Family | DX: N40.1 Benign prostatic hyperplasia with lower urinary tract symptoms (principal); R97.20 Elevated prostate specific antigen [PSA] | CPT/HCPCS: 99212 ==

== ENCOUNTER 2024-12-11 06:06 | Day surgery (SDC) | payer MEDICARE, MEDICAID, SELFPAY ==
[2024-11-27 12:40] VITALS: BMI 29.9
--- NOTE | 2024-11-27 13:11 | P.CONAN_ITS ---
Documented by User: Rhonda Reyes NP 12/10/24 10:37 HPI - Anesthesia Eval Consult details Narrative: 74yo M for C4-5 Ant Cerv Discectomy w/ fusion, 12/11/24 [facility] resident [facility] ~ 2021 with L side weakness, hemiplegia, wheelchair bound Stable at 11/18/24 PCP visit - no change to regimen PMFSH Active Problems Active Problems: All Active Problems Stroke (Acute) Mild recurrent major depression (Acute) Essential hypertension (Acute) Shoulder joint pain (Acute) Muscle pain (Acute) Degeneration of cervical intervertebral disc (Acute) Brachial radiculitis (Acute) Cervical spinal cord compression (Acute) Rectus diastasis (Acute) Shoulder subluxation, left (Acute) History of stroke (Acute) Spasticity (Acute) Severe flexion contractures of all joints (Acute) Enlarged prostate with lower urinary tract symptoms (LUTS) (Acute) Renal cyst (Acute) Lower extremity pain (Acute) Lumbar spinal stenosis (Acute) Cervical spinal stenosis (Acute) PAD (peripheral artery disease) (Acute) Anxiety (Acute) Annual physical exam (Acute) Polyarthritis (Acute) Spastic hemiparesis of left dominant side (Acute) Spastic hemiplegia affecting right dominant side (Acute) Spastic hemiparesis affecting dominant side (Acute) Contracture, left hand (Acute) Bilateral knee contractures (Acute) Elevated PSA (Acute) Insomnia (Acute) Fibromyalgia (Acute) GERD (gastroesophageal reflux disease) (Acute) Hypovitaminosis D (Acute) Lumbar degenerative disc disease (Acute) Past Medical History Medical History Hx of varicose veins Depression COVID-19 Numbness HTN (hypertension) Spastic hemiparesis of left dominant side Spastic hemiplegia affecting right dominant side Spastic hemiparesis affecting dominant side Contracture, left hand Bilateral knee contractures Elevated PSA Moderate major depression Insomnia Fibromyalgia GERD (gastroesophageal reflux disease) Hypovitaminosis D Lumbar degenerative disc disease Family History Family History Father Diabetes Hypertension Liver cancer Mother Diabetes Hypertension Stroke Other Substance use disorder Surgical History Surgical History Hx of varicose vein ligation and stripping History of prostate surgery History of shoulder surgery History of laminectomy Social History Social History Housing: House Are you a primary nurse behavioral health care to a significant other at home: No Do you presently have visiting nurse or other home services: No Alcohol intake: former Patient Tobacco Use Status: Former Tobacco user Cigarettes Per Day: 3 e-Cigarette/Vaping Use: Never Used Second Hand Smoke Exposure: No Use of substances other than those prescribed or required for medical reasons: No Have you been hit, kicked, punched, or otherwise hurt by someone within the past year? If so, by whom?: No Are you DNR?: No Advance Directives: Yes Advance Directives Information Provided: No Advance Directives on File: Yes Advance Directives Date on File: 09/06/22 Poor oral hygiene: Yes service: No Current occupational status: disabled Cognitive needs: Yes (cane) Hearing needs: No Vision needs: Yes (reading glasses) Meds Allergies Allergy/AdvReac Type Severity Reaction Status Date / Time Penicillins Allergy Severe Rash Verified 12/11/24 06:34 tramadol Allergy Unknown inadequate Verified 12/11/24 06:34 response Home Medications ?Medication ?Instructions ?Recorded ?Confirmed ?Last Taken ?Type folic acid 1 mg tablet 1 mg PO DAILY 12/25/22 12/11/24 Unknown History thiamine HCl (vitamin B1) 100 mg 100 mg PO DAILY 12/25/22 12/11/24 Unknown History tablet terazosin 2 mg capsule 8 mg PO BEDTIME 03/01/23 12/11/24 Unknown History acetaminophen 325 mg tablet 975 mg PO TID 12/11/23 12/11/24 Unknown History baclofen 10 mg tablet 15 mg PO TID 12/11/23 12/11/24 Unknown History baclofen 5 mg tablet 5 mg PO Q8-10H PRN Muscle Spasm 12/11/23 12/11/24 Unknown History docusate sodium 100 mg capsule 200 mg PO BID 12/11/23 12/11/24 Unknown History (Colace) magnesium oxide 400 mg (241.3 mg 400 mg PO DAILY 12/11/23 12/11/24 Unknown Hi story magnesium) tablet chlorhexidine gluconate 0.12 % 15 ml buccal DAILY 11/18/24 11/27/24 Unknown History mouthwash (Periogard) guaifenesin 100 mg/5 mL oral liquid 400 mg PO Q6H PRN Congestion 11/18/24 12/11/24 Unknown History bisacodyl 10 mg rectal suppository 10 mg CO DAILY PRN Constipation 11/27/24 12/11/24 Unknown History diclofenac sodium 1 % topical gel 4 g topical QID 11/27/24 12/11/24 Unknown History finasteride 5 mg tablet 5 mg PO BEDTIME 11/27/24 12/11/24 Unknown History magnesium hydroxide 400 mg/5 mL 30 ml PO DAILY PRN Constipation 11/27/24 12/11/24 Unknown History oral suspension (Milk of Magnesia) sennosides 8.6 mg tablet (senna) 8.6 mg PO BEDTIME 11/27/24 12/11/24 Unknown History trazodone 50 mg tablet 25 mg PO BEDTIME insomnia 11/27/24 12/11/24 Unknown History Lasix 40 mg PO DAILY 12/11/24 12/11/24 Unknown History Exam Height,Weight and Vital Signs: Height 5 ft 6 in Weight 83.915 kg Pertinent Lab Results Pertinent Lab Results: Per provider note, 09/24/24 BMP and CBC OK Narrative Narrative: EKG 08/2024 NSR @ 68 IVCD CXR 10/2024 No acute cardiopulmo process Assessment and Plan Assessment Anesthesia Assessment: Chart Reviewed Documented by User: Shannon Crystal MD 12/11/24 07:29 [facility] Past Medical History Medical History Hx of varicose veins Depression COVID-19 Numbness HTN (hypertension) Spastic hemiparesis of left dominant side Spastic hemiplegia affecting right dominant side Spastic hemiparesis affecting dominant side Contracture, left hand Bilateral knee contractures Elevated PSA Moderate major depression Insomnia Fibromyalgia GERD (gastroesophageal reflux disease) Hypovitaminosis D Lumbar degenerative disc disease Family History Family History Father Diabetes Hypertension Liver cancer Mother Diabetes Hypertension Stroke Other Substance use disorder Family history of problems with anesthesia: No Surgical History Surgical History Hx of varicose vein ligation and stripping History of prostate surgery History of shoulder surgery History of laminectomy History of Problems with Anesthesia: No Social History Social History Housing: House Are you a primary nurse behavioral health care to a significant other at home: No Do you presently have visiting nurse or other home services: No Alcohol intake: former Patient Tobacco Use Status: Former Tobacco user Cigarettes Per Day: 3 e-Cigarette/Vaping Use: Never Used Second Hand Smoke Exposure: No Use of substances other than those prescribed or required for medical reasons: No Have you been hit, kicked, punched, or otherwise hurt by someone within the past year? If so, by whom?: No Are you DNR?: No Advance Directives: Yes Advance Directives Information Provided: No Advance Directives on File: Yes Advance Directives Date on File: 09/06/22 Poor oral hygiene: Yes service: No Current occupational status: disabled Cognitive needs: Yes (cane) Hearing needs: No Vision needs: Yes (reading glasses) Meds Allergies Allergy/AdvReac Type Severity Reaction Status Date / Time Penicillins Allergy Severe Rash Verified 12/11/24 06:34 tramadol Allergy Unknown inadequate Verified 12/11/24 06:34 response Home Medications ?Medication ?Instructions ?Recorded ?Confirmed ?Last Taken ?Type folic acid 1 mg tablet 1 mg PO DAILY 12/25/22 12/11/24 Unknown History thiamine HCl (vitamin B1) 100 mg 100 mg PO DAILY 12/25/22 12/11/24 Unknown History tablet terazosin 2 mg capsule 8 mg PO BEDTIME 03/01/23 12/11/24 Unknown History acetaminophen 325 mg tablet 975 mg PO TID 12/11/23 12/11/24 Unknown History baclofen 10 mg tablet 15 mg PO TID 12/11/23 12/11/24 Unknown History baclofen 5 mg tablet 5 mg PO Q8-10H PRN Muscle Spasm 12/11/23 12/11/24 Unknown History docusate sodium 100 mg capsule 200 mg PO BID 12/11/23 12/11/24 Unknown History (Colace) magnesium oxide 400 mg (241.3 mg 400 mg PO DAILY 12/11/23 12/11/24 Unknown History magnesium) tablet chlorhexidine gluconate 0.12 % 15 ml buccal DAILY 11/18/24 11/27/24 Unknown History mouthwash (Periogard) guaifenesin 100 mg/5 mL oral liquid 400 mg PO Q6H PRN Congestion 11/18/24 12/11/24 Unknown History bisacodyl 10 mg rectal suppository 10 mg CO DAILY PRN Constipation 11/27/24 12/11/24 Unknown History diclofenac sodium 1 % topical gel 4 g topical QID 11/27/24 12/11/24 Unknown History finasteride 5 mg tablet 5 mg PO BEDTIME 11/27/24 12/11/24 Unknown History magnesium hydroxide 400 mg/5 mL 30 ml PO DAILY PRN Constipation 11/27/24 12/11/24 Unknown History oral suspension (Milk of Magnesia) sennosides 8.6 mg tablet (senna) 8.6 mg PO BEDTIME 11/27/24 12/11/24 Unknown History trazodone 50 mg tablet 25 mg PO BEDTIME insomnia 11/27/24 12/11/24 Unknown History Lasix 40 mg PO DAILY 12/11/24 12/11/24 Unknown History Exam Airway Mallampati Class: III TM Dist: >3cm Denture: Upper Loose/Missing/Broken Teeth: Yes and Upper Assessment and Plan Final Anesthetic Review Family History of Problems with Anesthesia: No History of Problems with Anesthesia: No NPO: Yes ASA Class: III Final Preanesthetic Review: No Changes in Pt Med Stat, Meds/Allgs Chart Reviewed, Consent Obtained/Reviewed, Anes Risks/Benef Reviewed and DNR Form (If Appl.) Patient Risk: Intermediate Procedure Risk: Intermediate Anesthetic Plan Anesthetic Plan: GA Disposition: Standard PACU
[2024-12-11] VITALS (10 sets, daily range): BP systolic 112–133; BP diastolic 55–80; PULSE 68–89; RESP 16; TEMP 36.3; O2SAT 90–99; BMI 30.9
--- NOTE | ~2024-12-11 | FL_ITS ---
EXAMINATION: FL GUIDANCE ONLY HISTORY: c4-5 ACDF COMPARISON: None available. TECHNIQUE: Fluoroscopy time: 6.4 seconds. Cumulative Dose: 0.5205 mGy. DAP: 0.1701 mGym2 Images: 2. FINDINGS: Images demonstrate anterior cervical disc fusion at C4-5. FL/FL guidance in OR IMPRESSION: Fluoroscopy during procedure. Please see procedure report for additional information. Electronically signed by: Marek March MD 12/12/2024 09:33 AM EDT
[2024-12-11] MEDS: methocarbamoL 750 MG TABLET PO (06:56)
[2024-12-11] MEDS: Gabapentin 300 MG CAPSULE PO (06:56)
--- NOTE | 2024-12-11 06:58 | MHC.SHP ---
Pre-Procedural Eval Section A - 24 Hr Update-Section A only Date of Service: 12/11/24 The patient is an INPATIENT: No Changes since office visit: No Cold of Flu in the past 2 weeks, No New Medical Problems, No Changes in Medication and No Patient answered all questions The patient has been examined within 24 hours of the surgical procedure. The History & Physical has been completed within 30 days and I have reviewed it.: No Section B - Complete if H&P > 30 days Chief Complaint: Yes Allergies: Allergies Allergy/AdvReac Type Severity Reaction Status Date / Time Penicillins Allergy Severe Rash Verified 12/11/24 06:34 tramadol Allergy Unknown inadequate Verified 12/11/24 06:34 response Review of Systems Sugical H&P ROS: Negative: Constitution, Cardiovascular, Respiratory, Neurological, Psychiatric, Hem-Onc, Allergic/Immunologic, Gastrointestinal, Genitourinary, Musculoskeletal, Integumentary, Endocrine and Eyes/Ears/Nose/Throat Exam Surgical H&P Exam: Normal: HEENT, Normal: Heart, Normal: Lungs, Normal: Extremities, Normal: Abdomen, Normal: Skin and Normal: Neurological (awake, alert,oriented x 3 ) Plan Diagnosis/Plan: Unchanged anterior cervical diskecctomy and fusion C4-5 Time Spent With Patient Time: Total time managing care of this patient today ____ minutes.
[2024-12-11] MEDS: vancomycin HCL 1,500 MG in 0.9 % Sodium Chloride 500 ML 333.33 MG IV (07:01)
--- NOTE | 2024-12-11 07:01 | PM.DS ---
DS: Providers Provider Date of Service: 12/11/24 Date of discharge: 12/11/24 Primary care physician: SAVITA ESCOBAR Admitting clinician: Maycol Jones DS: Diagnosis Discharge Diagnosis (1) Cervical spinal cord compression: Status: Acute DS: Summary Time Attestation Discharge Coordination Time (in mins): 5 Quality: Safe Use of Opioids Does Pt have an Active Cancer Diagnosis on the Problem List?: No Quality: Stroke Does the patient have a stroke diagnosis?: No Physical Exam Vital Signs: Vital Signs: Last Vital Signs Temp 97.4 F 12/11/24 06:45 Pulse 68 12/11/24 06:45 Resp 16 12/11/24 06:45 BP 133/80 12/11/24 06:45 Pulse Ox 94 12/11/24 06:45 O2 Del Method Room Air 12/11/24 06:45 BMI result Body Mass Index 30.9 Discharge Plan Discharge Patient Disposition: Home, Self-Care Referrals: SAVITA ESCOBAR [Primary Care Provider] - 1 Week Discharge Medications: Continued omeprazole 20 mg capsule,delayed release(DR/EC) 20 mg PO DAILY 90 Days Qty: 90 1RF duloxetine 30 mg capsule,delayed release(DR/EC) 30 mg PO BID 30 Days Qty: 60 1RF magnesium hydroxide [Milk of Magnesia] 400 mg/5 mL Suspension 30 ml PO DAILY PRN (Reason: Constipation) bisacodyl 10 mg Suppository 10 mg OH DAILY PRN (Reason: Constipation) diclofenac sodium 1 % Gel 4 g TOPICAL QID Rx Instructions: apply to single knee, ankle, foot; for foot includes sole/toes/top of foot sennosides [senna] 8.6 mg tablet 8.6 mg PO BEDTIME trazodone 50 mg tablet 25 mg PO BEDTIME finasteride 5 mg tablet 5 mg PO BEDTIME Lasix 40 mg 40 mg PO DAILY magnesium oxide 400 mg (241.3 mg magnesium) tablet 400 mg PO DAILY docusate sodium [Colace] 100 mg capsule 200 mg PO BID acetaminophen 325 mg tablet 975 mg PO TID baclofen 5 mg tablet 5 mg PO Q8-10H PRN (Reason: Muscle Spasm) baclofen 10 mg tablet 15 mg PO TID chlorhexidine gluconate [Periogard] 0.12 % mouthwash 15 ml buccal DAILY guaifenesin 100 mg/5 mL liquid 400 mg PO Q6H PRN (Reason: Congestion) pregabalin 75 mg capsule 75 mg PO TID 30 Days Qty: 90 0RF oxycodone 5 mg tablet 5 mg PO Q8H PRN (Reason: pain) 30 Days Qty: 90 0RF Rx Instructions: Partial Fill upon patient request. amlodipine 5 mg tablet 5 mg PO DAILY 90 Days Qty: 90 1RF folic acid 1 mg tablet 1 mg PO DAILY thiamine HCl (vitamin B1) 100 mg tablet 100 mg PO DAILY terazosin 2 mg capsule 8 mg PO BEDTIME Discharge Orders: Discharge Order (Routine); Ordered 12/11/24 Ordered By: Dong Herrera Diet: Advance to usual diet Activity on Discharge: As tolerated Activity Restrictions/Additional Instructions: After your spinal surgery we ask you to observe the following restrictions/guidelines: Activity: It is normal to feel some discomfort as you increase your activity, but that will improve with time. We ask you avoid heavy lifting or acitivities that cause pain. As a general rule, 8lbs is a safe limit for lifting right after surgery. Walk as much as you feel comfortable but not to exhaustion. You will feel extra tired the first few days after surgery. Stay well hydrated. It is OK to walk up and down stairs You may return to driving when you are off narcotics (such as vicodin, oxycodone, dilaudid, etc), and you are back to normal functional capacity. If you have any concerns please check with office before driving. Return to work is specific to each patient and each surgery, so please speak with your doctor/PA at first follow up. Please bring paperwork such as FMLA at that time if you need it filled out. Medications: For optimum pain control, it is best to start with a combination of 500 mg of Tylenol every 4 hours with 600 mg of Motrin every 8 hours, and use narcotics as needed in between for breakthrough pain. We will give you a short supply of narcotics after surgery (usually one weeks worth). If you need more please call the office but do not use more than prescribed. You will need to give our office 48 hours notice if you need narcotics refilled and we do not fill narcotics on weekends or evenings. If you are on a narcotic, it is a good idea to take a stool softener such as colace or senna to avoid constipation If you take blood thinner such as aspirin, Plavix, Coumadin, Effient, Eliquis etc for conditions such as Afib, DVT, Pulmonary embolus, coronary disease, stents etc please speak with your surgeon about specific details as to when you can resume these medications. You can resume NSAIDs on post op day 1 (eg: Motrin, Naproxen, etc). Follow up: Please call the office, , after surgery to arrange a 3 week follow up for wound check. Wound Care: You may remove your dressing on the first day after surgery. ?You may ?leave open to air. Please do not remove the steri strips underneath. they will fall off on their own in one week. IT IS NORMAL FOR THE WOUND TO OOZE OR BE BLOODY FOR A FEW DAYS AFTER SURGERY. ?IF THIS HAPPENS JUST PLACE NEW DRESSING OVER IT TO AVOID STAINING CLOTHES. You may shower on post op day # 1 We ask that you do not let the water soak the wound. If it does get wet, just towel dry lightly. Please do not scrub your incision or place any type of chemical/ointment on the wound. No tub baths, pools or jacuzzis for one month. If you have any leaking or redness from your wound, or fevers, please call office Print Language: Hungarian
[2024-12-11] MEDS: Lactated Ringers 1,000 ML 100 ML IVCONT (07:05)
--- NOTE | 2024-12-11 07:06 | PC.NURSE ---
Patient in preop. Call placed to [facility]. Spoke to Nurse Sydni to verify what meds were given this AM with water only. Last weight verified with Sydni, 191.5 lbs on 11/19.
[2024-12-11] MEDS: Acetaminophen 1,000 MG/100 ML PIGGYBACK 400 MG IV (08:45)
--- NOTE | 2024-12-11 09:13 | P.OP_ITS ---
Operative Note Operative Note Date of Service: 12/11/24 Narrative: Preoperative Diagnosis: Cervical myelopathy Procedure: C4-C5 Anterior discectomy, arthrodesis and implantation cage ; C4-C5 anterior instrumentation ; local autograft; microscope Informed Consent was obtained for this operation. I have explained the nature, purpose and benefits of the operation. I have discussed the risks and benefit of the operation including possible complications or adverse events with patient/fa kiley. Alternative(s) were discussed with the patient with their relative benefits and risks as well as the consequences of not accepting the operation were included in obtaining consent. 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 Why it was in rehab he continued to deteriorate neurologically. An MRI of the cervical spine shows significant spinal cord compression C4-5 with myelomalacia. He was offered a decompression of the level. The procedure complications were explained. The patient was consented. The patient was brought to the operating room and endotracheally intubated. The patient was put in supine position with slight extension of the neck. Prep and drape was done followed by timeout. A mid cervical incision was made followed by opening of the platysma. The prevertebral fascia was reached following the natural planes while the physician expanded duty dental assistant provided manual retraction. The prevertebral fascia was opened to expose the disc space. A spinal needle was placed in the disk space to confirm the correct level with xray. The longus colli muscles were released bilaterally and a self retaining retractor was inserted. Two [place] pins were placed in the C4 and C5 vertebral bodies and distraction was give over the interspace. A high-speed drill was used to perform the diskectomy due to the severe degenerative changes. A large posterior osteophyte was encountered which was drilled down as well. Eventually, I was able to create a small opening in the posterior longitudinal ligament and the distal he was able to remove the large posterior osteophyte compressing the spinal cord. This was saved for autograft. This also finally allowed me to see the dura and after this with a 2. [place] the decompression was completed by removing much more posterior osteophytes that were resected from the body of C4 and C5 safe for autograft. Bilateral foraminotomies were done. The endplates were prepared after which a 6 mm cage filled with autograft was inserted into the disc space. A separate attached plate was locked down with 2 x 14 mm screws as anterior instrumentation. Final x-rays in AP and lateral projection showed a satisfactory position of the implant. The physician expanded duty dental assistant took over. The [place] pin was removed. Hemostasis was done. He closed the incision in 2 layers with a 3-0 Vicryl. Steri-Strips used to approximate incision. An OpSite with Tegaderm was used to cover the incision. All sponge and needle counts were correct. Patient was extubated and transported in stable is to recovery room. Anesthesia: General Estimated Blood Loss (ml): 20 mL Duration of Surgery: 1 hour 15 minutes Postoperative Plan: Discharge home Complications: None
--- NOTE | 2024-12-11 12:51 | PC.NURSE ---
CALLED PATIENT'S DAUGHTER REMI BAUMANN WHO HAS POWER OF HEAD COOK FOR DISCHARGE INSTRUCTIONS. ALSO WENT OVER INSTRUCTIONS WITH DAUGHTER OVER PHONE.
--- NOTE | 2024-12-11 12:54 | PC.NURSE ---
ALSO, THIS RN WAS TOLD BY SECONDARY SCHOOL TEACHER LIBRARIAN THAT SHE WAS CALLING THE REHAB FACILITY TO GIVE REPORT.
== END 2024-12-11 12:55 | disposition home or self-care (01) ==
PROVIDERS: PCP Emergency Medicine; Visit Provider Neurological Surgery
PROC: (CPT 22551; principal; 2024-12-11 07:30)
DX: G95.20 Unspecified cord compression (principal); M50.021 Cervical disc disorder at C4-C5 level with myelopathy; M50.321 Other cervical disc degeneration at C4-C5 level; M48.02 Spinal stenosis, cervical region; I69.354 Hemiplegia and hemiparesis following cerebral infarction affecting left non-dominant side; I10 Essential (primary) hypertension; F33.0 Major depressive disorder, recurrent, mild; Z87.891 Personal history of nicotine dependence; Z88.0 Allergy status to penicillin; Z88.5 Allergy status to narcotic agent
CPT/HCPCS: 22551; 22853; 20936; 22845; C1713; C1889; J0131; J0171; J1100; J2003; J2371; J2405; J2704; J3010; J3371

== ENCOUNTER → 2024-12-11 06:06 | Outpatient (BNV) | payer MEDICARE, MEDICAID, SELFPAY | PROVIDERS: PCP Emergency Medicine; Visit Provider Neurological Surgery | DX: M50.321 Other cervical disc degeneration at C4-C5 level (principal); G95.20 Unspecified cord compression | CPT/HCPCS: 63042; 99499 ==

== ENCOUNTER 2024-12-16 12:58 | Outpatient (AMB) | payer MEDICARE, MEDICAID, SELFPAY ==
--- NOTE | 2024-12-16 12:59 | A.SPINEOV_ITS ---
Intake Visit Reasons: Wound check/increased pain Intake Note: Mr. Mcnulty is here today to have a his wound check also he's having increasing pain. Pulp And Paper Tester Required: Yes Pulp And Paper Tester Services: Pulp And Paper Tester Present Pulp And Paper Tester Name: Ayana V LM Allergies Penicillins Allergy (Severe, Verified 12/11/24 06:34) Rash tramadol Allergy (Unknown, Verified 12/11/24 06:34) inadequate response Assessment & Plan Assessment & Plan (1) S/P cervical spinal fusion: Code(s): Z98.1 - Arthrodesis status Category: Surgical Plan Procedure: C4-5 ACDF POD: 5 HPI: Jose is a pleasant 74 year old male who comes in today for an acute add on follow up visit after having C4-[address] Jones due to progressive myelopathy. To recap he was initially evaluated in clinic for progressive trouble walking and using his hands, accompanied by occasional hand numbness. He also had a left-sided hemiparesis due to a previous stroke. He was added on for an acute visit today because he reported progressive loss of motor function in his right upper extremity. Dr. Jones is aware of the patients current presentation and had the patient started on Decadron 2 mg p.o. q.6 hours for likely postoperative inflammation / irritation as of 12/12/24. In clinic today he reports that his right upper extremity previously was his ?strong arm? and allowed him to complete most of his daily needs including writing, lifting heavy objects, and feeding. Unfortunately, this is largely been impossible for him due to the inability to raise his right arm up towards his face, and fully engage his hand semiconductor packages platemaker strength on the right. He is accompanied by his granddaughter to this visit today who helps to provide some of his history. He reports his arm strength has been diminished ?the same? since surgery with no meaning return of function or improvement. Preoperative exam completed by SANTO Herrera was as follows: [Physical exam: He is awake alert, cooperative to my exam, unable to stand up out of his wheelchair, he has contractures of his arms and legs bilaterally with increased tone consistent with his known history of spasticity. Hands are very weak with significant osteoarthritis overgrowth and deformities. He was able to squeeze my hands very weakly. Bilateral upper extremity strength is about 3/5 diffusely . He has a lot of limitations with his deltoid secondary to arthritis and previous right shoulder surgery. Distally in the lower extremities he has good strength, but proximally he has a lot of difficulty even going antigravity. He is diffusely hyperreflexic with Ramin sign in both hands. Reflexes are slightly diminished in the lower extremities however.] Examination today: Jose has about 4/5 strength with right sided triceps testing. He is at lest 3/5 antigravity on interossei testing / hand semiconductor packages platemaker / wrist extension/flexion. His biceps strength I would rate it about 1/5, as there is a flicker of movement but no meaningful antigravity strength or ROM, his deltoid strength I would rate at a 0/5 with no meaningful engagement of strength. His sensation to light touch is slightly diminished on the right side compared to the left, but this he reports is nearly negligible. Plan: Pleasant 74 year old male POD:5 s/p C4-[address] Jones. His clinical presentation and examination were relayed to the attending neurosurgeon Dr. Jones, who also reviewed the patient's x-ray imaging. 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 It does not appear that the Decadron is particularly helpful for him as he is reporting no symptom improvement since the surgery. Therefore, our recommendation is to taper the Decadron off over the course of the next few days, and have the patient follow up with us in clinic in 2 weeks to evaluate for symptom improvement. C5 nerve palsy should self resolve on its own over time. If his symptoms worsen at all, it was recommended that he call the clinic for an earlier appointment. Chidi Jones MD,PhD [facility] Orders: Orders XR cervical spine 4V Today Z98.1 - Arthrodesis status Coding Level of Care Code Global (44929) Diagnoses S/P cervical spinal fusion Z98.1
--- OUTSIDE RECORDS SUMMARY | 2024-12-16 14:53 | XMS_ITS | Encounter Summary ---
Author Organization [facility] Address [address] [place] [address] Care Team Providers Care Molten Iron Pourer Name Role Phone Farideh Garcia MD Primary Care Provider [phone] Encounter Details Date Type Department Care Team (Late st Contact Info) Description 10/21/2024 Lab Requisition [facility] - Main Lab [address] [facility] [place] [address] Farideh Garcia MD [address] [place] [address] Vitamin D deficiency, unspecified Social History Tobacco [...] LAB CHEMISTRY METHOD 10/22/2024 12:24 PM EST [facility] ([facility]) [facility] Blood Venous blood specimen / Unknown Venipuncture / Unknown 10/22/2024 5:45 AM EST 10/22/2024 11:10 AM EST us Farideh Garcia MD LAB BLOOD ORDERABLES Final Resul t [facility] ([facility]) HOSPITAL LAB [address] [place] [address], documented in this encounter Visit Diagnoses Diagnosis Vitamin D deficiency, unspecified documented in this encounter Care Teams Molten Iron Pourer Relationship Specialty Start Date End Date Farideh Garcia MD [address] [place] [address] [address] [place] [address] PCP - General Geriatric Medicine 09/16/24 documented as of this encounter
--- OUTSIDE RECORDS SUMMARY | 2024-12-16 14:53 | XMS_ITS | Encounter Summary ---
Author Organization [facility] Address [address] [place] [address] Care Team Providers Care Risk Control Specialist Name Role Phone Farideh Garcia MD Primary Care Provider [phone] Encounter Details Date Type Department Care Team (Late st Contact Info) Description 08/21/2024 Lab Requisition [facility] - Main Lab [address] [place] [address] Kris Osorio MD [address] [place] [id number] Essential (primary) hypertension Social History Tobacco Use [...] Res ult [facility] [address] [place] [address], documented in this encounter Visit Diagnoses Diagnosis Essential (primary) hypertension Unspecified essential hypertension documented in this encounter Additional Health Concerns Infection Onset Date Last Indicated Resolved Time Respiratory Rule-Out 09/16/2024 09/15/2024 025 12:35 PM EST documented as of this encounter Care Teams Risk Control Specialist Relationship Specialty Start Date End Date Farideh Garcia MD [address] [facility] [address] [place] [address] PCP - General Geriatric Medicine 09/16/24 documented as of this encounter
--- OUTSIDE RECORDS SUMMARY | 2024-12-16 14:53 | XMS_ITS | Clinical Summary ---
Author Organization 299 [facility] Address [address] [place] [address] Phone Care Team Providers Care Revenue Inspector Name Role Phone Farideh Garcia MD Primary Care Provider [phone] Encounters Date Type Department Care Team Description 12/15/2024 Lab Requisition [facility] [address] [place] [id number] Farideh Garcia MD Benign prostatic hyperplasia with lower urinary tract symptoms 12/15/2024 Lab Requisition [facility] Lab [address] [place] [phone] Farideh Garcia MD Frequency of micturition 12/11/2024 Lab Requisition [facility] Lab [address] [place] [address] Farideh Garcia MD Dysuria 10/21/2024 Lab Requisition [facility] [address] [place] [address] Farideh Garcia MD Vitamin D deficiency, unspecified 09/23/2024 Lab Requisition [facility] [address] [place] [address] Kris Osorio MD Benign prostatic hyperplasia without lower urinary tract symptoms; Vitamin D deficiency, unspecified; Essential (primary) hypertension from Last 3 Months [...] - 2023-2 5 season) 2024 Influenza Vaccine (Season Ended) [...] Procedure Name Priority Date/Time Associated Diagnosis Comments PROSTATE SPECIFIC ANTIGEN DIAGNOSTIC Routine 12/15/2024 5:57 AM EDT Benign prostatic hyperplasia with lower urinary tract symptoms URINALYSIS WITH REFLEX MICROSCOPIC Routine 12/14/2024 1:00 PM EDT Frequency of micturition URINALYSIS WITH REFLEX MICROSCOPIC Routine 12/14/2024 1:00 PM EDT Frequency of micturition CULTURE URINE Routine 12/14/2024 1:00 PM EDT Frequency of micturition URINALYSIS WITH REFLEX MICROSCOPIC AND CULTURE Routine 12/10/2024 3:10 PM EDT Dysuria KUMARI URINE CULTURE TUBE Routine 12/10/2024 3:10 PM EDT Dysuria URINALYSIS WITH REFLEX MICROSCOPIC AND CULTURE Routine 12/10/2024 3:10 PM EDT Dysuria CULTURE URINE Routine 12/10/2024 3:10 PM EDT Dysuria VITAMIN D 25 HYDROXY Routine 10/22/2024 5:45 [...] Vitamin D deficiency, unspecified Essential (primary) hypertension from Last 3 Months Results * (ABNORMAL) Prostate specific antigen diagnostic (12/15/2024 5:57 AM EDT) PSA 5.48(H) 0.00 - 4.00 ng/mL LAB CHEMISTRY METHOD 12/15/2024 12:44 PM EDT [facility] Blood Venous blood specimen / Unknown Venipuncture / Unknown 12/15/2024 5:57 AM EDT 12/15/2024 11:52 AM EDT Narrative [facility] - 12/15/2024 12:44 PM EDT The Siemens Advia Centaur Chemiluminescent Immunoassay is used. Results obtained with different assay methods or kits cannot be used interchangeably. Results cannot be interpreted as absolute evidence of the presence or absence of malignant disease. us Farideh Garcia MD LAB BLOOD ORDERABLES Final Resul t [facility] [address] [place] [address], * (ABNORMAL) Urinalysis with reflex microscopic (12/14/2024 1:00 PM EDT) Specific [place] Urine 1.020 1.003 - 1.030 LAB URINALYSIS - AUTOMATED METHOD 12/15/2024 12:12 PM [facility] pH, Urine 8.0 5.0 - 8.0 pH LAB URINALYSIS - AUTOMATED METHOD 12/15/2024 12:12 PM [facility] Leukocytes, Urine Trace(A) Negative LAB URINALYSIS - AUTOMATED METHOD 12/15/2024 12:12 PM [facility] Nitrite, Urine Negative Negative LAB URINALYSIS - AUTOMATED METHOD 12/15/2024 12:12 PM [facility] Protein, Urine Trace <=Trace mg/dL LAB URINALYSIS - AUTOMATED METHOD 12/15/2024 12:12 PM [facility] Glucose, Urine Negative Negative mg/dL LAB URINALYSIS - AUTOMATED METHOD 12/15/2024 12:12 PM [facility] Ketones, Urine Trace(A) Negative mg/dL LAB URINALYSIS - AUTOMATED METHOD 12/15/2024 12:12 PM [facility] Urobilinogen, Urine 2.0(A) 0.2 - 1.0 mg/dL LAB URINALYSIS - AUTOMATED METHOD 12/15/2024 12:12 PM EDT [facility] Bilirubin, Urine Negative Negative LAB URINALYSIS - AUTOMATED METHOD 12/15/2024 12:12 PM EDT [facility] Blood, Urine Negative Negative LAB URINALYSIS - AUTOMATED METHOD 12/15/2024 12:12 PM [facility] RBC, Urine 4.8(H) 0 - 4 /HPF LAB URINALYSIS - AUTOMATED METHOD 12/15/2024 12:12 PM [facility] WBC, Urine 0.9 0 - 4 /HPF LAB URINALYSIS - AUTOMATED METHOD 12/15/2024 12:12 PM [facility] Squamous Epithelial, Urine 15 0 - 60 /LPF LAB URINALYSIS - AUTOMATED METHOD 12/15/2024 12:12 PM [facility] Bacteria, Urine Negative Negative /HPF LAB URINALYSIS - AUTOMATED METHOD 12/15/2024 12:12 PM [facility] Hyaline Casts, Urine 0.0 0 - 3 /LPF LAB URINALYSIS - AUTOMATED METHOD 12/15/2024 12:12 PM [facility] Urine Urine specimen from urethra / Unknown Non-blood Collection / Unknown 12/14/2024 1:00 PM EDT 12/15/2024 11:50 AM EDT us Farideh Garcia MD LAB URINE ORDERABLES Final Resul t [facility] [address] [place] [address], * (ABNORMAL) Urinalysis with reflex microscopic and culture (12/10/2024 3:10 PM EDT) Specific [place] Urine 1.020 1.003 - 1.030 LAB URINALYSIS - AUTOMATED METHOD 12/11/2024 9:03 AM [facility] pH, Urine 7.0 5.0 - 8.0 pH LAB URINALYSIS - AUTOMATED METHOD 12/11/2024 9:03 AM [facility] Leukocytes, Urine Trace(A) Negative LAB URINALYSIS - AUTOMATED METHOD 12/11/2024 9:03 AM [facility] Nitrite, Urine Positive(A) Negative LAB URINALYSIS - AUTOMATED METHOD 12/11/2024 9:03 AM [facility] Protein, Urine Negative <=Trace mg/dL LAB URINALYSIS - AUTOMATED METHOD 12/11/2024 9:03 AM [facility] Glucose, Urine Negative Negative mg/dL LAB URINALYSIS - AUTOMATED METHOD 12/11/2024 9:03 AM [facility] Ketones, Urine Negative Negative mg/dL LAB URINALYSIS - AUTOMATED METHOD 12/11/2024 9:03 AM [facility] Urobilinogen , Urine 0.2 0.2 - 1.0 mg/dL LAB URINALYSIS - AUTOMATED METHOD 12/11/2024 9:03 AM [facility] Bilirubin, Urine Negative Negative LAB URINALYSIS - AUTOMATED METHOD 12/11/2024 9:03 AM [facility] Blood, Urine Negative Negative LAB URINALYSIS - AUTOMATED METHOD 12/11/2024 9:03 AM [facility] RBC, Urine 7.0(H) 0 - 4 /HPF LAB URINALYSIS - AUTOMATED METHOD 12/11/2024 9:03 AM [facility] WBC, Urine 3.8 0 - 4 /HPF LAB URINALYSIS - AUTOMATED METHOD 12/11/2024 9:03 AM [facility] Squamous Epithelial, Urine 67(H) 0 - 60 /LPF LAB URINALYSIS - AUTOMATED METHOD 12/11/2024 9:03 AM [facility] Bacteria, Urine Many(A) Negative /HPF LAB URINALYSIS - AUTOMATED METHOD 12/11/2024 9:03 AM EDT [facility] Hyaline Casts, Urine 2.0 0 - 3 /LPF LAB URINALYSIS - AUTOMATED METHOD 12/11/2024 9:03 AM EDT [facility] Urine Urine specimen obtained by clean catch procedure / Unknown 12/10/2024 3:10 PM EDT 12/11/2024 8:32 AM EDT us Farideh Garcia MD LAB URINE ORDERABLES Final Resul t Performing Organization Address City/[facility]/ZIP Co de Phone Number [facility] [address] [place] [address], [place] [phone] * Kumari urine culture tube (12/10/2024 3:10 PM EDT) Extra Tube Hold for add-ons. 12/11/2024 10:01 AM EDT [facility] Comment:Auto resulted. Urine Urine specimen obtained by clean catch procedure / Unknown 12/10/2024 3:10 PM EDT 12/11/2024 8:32 AM EDT us Farideh Garcia MD LAB URINE ORDERABLES Final Resul t Performing Organization Address City/[facility]/ZIP Co de Phone Number [facility] [address] [place] [address], [place] [phone] * Culture urine (12/10/2024 3:10 PM EDT) Culture, Urine >100,000 CFU/mL Mixed bacterial morphotypes present suggestive of possible contamination during collection. Suggest appropriate recollection if clinically indicated. 12/12/2024 10:31 AM EDT [facility] Urine Urine specimen obtained by clean catch procedure / Unknown 12/10/2024 3:10 PM EDT 12/11/2024 9:03 AM EDT us Farideh Garcia MD LAB MICROBIOLOGY - GENERAL ORDER ITZEL Final Result Performing Organization Address City/[facility]/ZIP Co de Phone Number [facility] [address] [place] [address], [place] [phone] * Vitamin D 25 hydroxy (10/22/2024 5:45 AM EST) Only the most recent of2 resultswithin the time period is included. [facility] Vit D, 25-Hydroxy 61.8 30.0 - 80.0 ng/mL LAB CHEMISTRY METHOD 10/22/2024 12:24 PM EST [facility] Blood Venous blood specimen / Unknown Venipuncture / Unknown 10/22/2024 5:45 AM EST 10/22/2024 11:10 AM EST us Farideh Garcia MD LAB BLOOD ORDERABLES Final Resul t Performing Organization Address [facility]/ZIP Co de Phone Number [facility] [address] [place] [address], [place] [phone] * (ABNORMAL) Complete blood count (09/24/2024 6:55 AM EST) [facility] WBC 8.9 4.8 - 10.8 K/mcL LAB HEMETOLOGY METHOD 09/24/2024 10:37 AM EST [facility] RBC 4.60 4.50 - 5.50 M/mcL LAB HEMETOLOGY METHOD 09/24/2024 10:37 AM [facility] Hemoglobin 12.3(L) 13.5 - 17.5 g/dL LAB HEMETOLOGY METHOD 09/24/2024 10:37 AM [facility] Hematocrit 38.7(L) 42.0 - 54.0 % LAB HEMETOLOGY METHOD 09/24/2024 10:37 AM EST [facility] MCV 84.7 79.0 - 98.0 FL LAB HEMETOLOGY METHOD 09/24/2024 10:37 AM EST [facility] MCH 26.9(L) 27.0 - 32.0 pcg LAB HEMETOLOGY METHOD 09/24/2024 10:37 AM EST [facility] MCHC 31.8(L) 32.0 - 37.0 g/dL LAB HEMETOLOGY METHOD 09/24/2024 10:37 AM EST [facility] RDW 13.7 11.0 - 15.0 % LAB HEMETOLOGY METHOD 09/24/2024 10:37 AM EST [facility] Platelets 194 130 - 400 K/mcL LAB HEMETOLOGY METHOD 09/24/2024 10:37 AM [facility] MPV 10.3 7.0 - 11.0 FL LAB HEMETOLOGY METHOD 09/24/2024 10:37 AM EST [facility] NRBC 0.2 <1.0 % LAB HEMETOLOGY METHOD 09/24/2024 10:37 AM [facility] NRBC Absolute 0.02 <0.10 K/mcL LAB HEMETOLOGY METHOD 09/24/2024 10:37 AM [facility] Blood Venous blood specimen / Unknown Venipuncture / Unknown 09/24/2024 6:55 AM EST 09/24/2024 10:15 AM EST us Kris Osorio MD LAB BLOOD ORDERABLES Final Res ult [facility] [address] [place] [address], * Magnesium (09/24/2024 6:55 AM EST) Magnesium 2.3 1.9 - 2.6 mg/dL LAB CHEMISTRY METHOD 09/24/2024 11:04 AM EST [facility] Blood Venous blood specimen / Unknown Venipuncture / Unknown 09/24/2024 6:55 AM EST 09/24/2024 10:15 AM EST Kris Osorio MD LAB BLOOD ORDERABLES Final Res ult Performing Organization Address [facility]/ZIP Co de Phone Number [facility] [address] [place] [address], [place] [phone] * (ABNORMAL) Folate (09/24/2024 6:55 AM EST) Folate >20.0(H) 2.8 - 17.0 ng/ml LAB CHEMISTRY METHOD 09/24/2024 11:15 AM [facility] Blood Venous blood specimen / Unknown Venipuncture / Unknown 09/24/2024 6:55 AM EST 09/24/2024 10:15 AM EST Kris Osorio MD LAB BLOOD ORDERABLES Final Res ult Performing Organization Address [facility]/ZIP Co de Phone Number [facility] [address] [place] [address], [place] [phone] * (ABNORMAL) Comprehensive metabolic panel (09/24/2024 6:55 AM EST) Pathologist [facility] Sodium 139 133 - 145 mmol/L LAB CHEMISTRY METHOD 09/24/2024 11:15 AM [facility] Potassium 3.9 3.5 - 5.5 mmol/L LAB CHEMISTRY METHOD 09/24/2024 11:15 AM [facility] Chloride 103 96 - 110 mmol/L LAB CHEMISTRY METHOD 09/24/2024 11:15 AM [facility] CO2 33(H) 21 - 32 mmol/L LAB CHEMISTRY METHOD 09/24/2024 11:15 AM [facility] Anion Gap 3 3 - 11 LAB CHEMISTRY METHOD 09/24/2024 11:15 AM [facility] Glucose 104(H) 70 - 100 mg/dL LAB CHEMISTRY METHOD 09/24/2024 11:15 AM [facility] BUN 17 5 - 25 mg/dL LAB CHEMISTRY METHOD 09/24/2024 11:15 AM [facility] Creatinine 0.57(L) 0.70 - 1.30 mg/dL LAB CHEMISTRY METHOD 09/24/2024 11:15 AM [facility] eGFR 102 >=60 mL/min/1. 73m2 LAB CHEMISTRY METHOD 09/24/2024 11:15 AM [facility] Comment:Calculation based on the??Chronic Kidney Disease Epidemiology Collaboration (CKD-EPI) equation refit??without adjustment for race. BUN/Creatinine Ratio 29.8 LAB CHEMISTRY METHOD 09/24/2024 11:15 AM [facility] Calcium 8.7 8.5 - 10.5 mg/dL LAB CHEMISTRY METHOD 09/24/2024 11:15 AM [facility] AST (SGOT) 21 10 - 42 unit/L LAB CHEMISTRY METHOD 09/24/2024 11:15 AM [facility] ALT (SGPT) 38 10 - 60 unit/L LAB CHEMISTRY METHOD 09/24/2024 11:15 AM [facility] Alkaline Phosphatase 102 42 - 121 unit/L LAB CHEMISTRY METHOD 09/24/2024 11:15 AM [facility] Total Protein 6.0 6.0 - 8.0 g/dL LAB CHEMISTRY METHOD 09/24/2024 11:15 AM [facility] Albumin 3.3 3.2 - 5.0 g/dL LAB CHEMISTRY METHOD 09/24/2024 11:15 AM [facility] Total Bilirubin 0.2 0.0 - 1.4 mg/dL LAB CHEMISTRY METHOD 09/24/2024 11:15 AM [facility] Blood Venous blood specimen / Unknown Venipuncture / Unknown 09/24/2024 6:55 AM EST 09/24/2024 10:15 AM EST us Kris Osorio MD LAB BLOOD ORDERABLES Final Res ult [facility] ([facility]) [facility] [address] [place] [address], [place] [phone] from Last 3 Months Insurance MEDICARE MEDICAID - [place] Care Teams Revenue Inspector Relationship Specialty Start Date End Date Farideh Garcia MD [address] [facility] [address] [place] [address] PCP - General Geriatric Medicine 09/16/24
--- OUTSIDE RECORDS SUMMARY | 2024-12-16 14:53 | XMS_ITS | Encounter Summary ---
Author Organization [facility] Address [address] [place] [address] Care Team Providers Care Medicine Assistant Name Role Phone Farideh Garcia MD Primary Care Provider [phone] Encounter Details Date Type Department Care Team (Late st Contact Info) Description 09/23/2024 Lab Requisition [facility] - Main Lab [address] [facility] [place] [address] Kris Osorio MD [address] [place] [phone] Benign prostatic hyperplasia without lower urinary tract [...] LAB CHEMISTRY METHOD 09/24/2024 11:13 AM EST [facility] Blood Venous blood specimen / Unknown Venipuncture / Unknown 09/24/2024 6:55 AM EST 09/24/2024 10:15 AM EST Kris Osorio MD LAB BLOOD ORDERABLES Final Res ult Performing Organization Address [facility]/ZIP Co de Phone Number [facility] [address] [place] [address], * Magnesium (09/24/2024 6:55 AM EST) Pathologist [facility] Magnesium 2.3 1.9 - 2.6 mg/dL LAB CHEMISTRY METHOD 09/24/2024 11:04 AM EST [facility] Blood Venous blood specimen / Unknown Venipuncture / Unknown 09/24/2024 6:55 AM EST 09/24/2024 10:15 AM EST Kris Osorio MD LAB BLOOD ORDERABLES Final Res ult [facility] [address] [place] [address], * (ABNORMAL) Folate (09/24/2024 6:55 AM EST) Pathologist [facility] Folate >20.0(H) 2.8 - 17.0 ng/ml LAB CHEMISTRY METHOD 09/24/2024 11:15 AM EST [facility] Blood Venous blood specimen / Unknown Venipuncture / Unknown 09/24/2024 6:55 AM EST 09/24/2024 10:15 AM EST Kris Osorio MD LAB BLOOD ORDERABLES Final Res ult [facility] [address] [place] [address], * (ABNORMAL) Comprehensive metabolic panel (09/24/2024 6:55 AM EST) Sodium 139 133 - 145 mmol/L LAB CHEMISTRY METHOD 09/24/2024 11:15 AM [facility] Potassium 3.9 3.5 - 5.5 mmol/L LAB CHEMISTRY METHOD 09/24/2024 11:15 AM [facility] Chloride 103 96 - 110 mmol/L LAB CHEMISTRY METHOD 09/24/2024 11:15 AM [facility] CO2 33(H) 21 - 32 mmol/L LAB CHEMISTRY METHOD 09/24/2024 11:15 AM [facility] Anion Gap 3 3 - 11 LAB CHEMISTRY METHOD 09/24/2024 11:15 AM [facility] Glucose 104(H) 70 - 100 mg/dL LAB CHEMISTRY METHOD 09/24/2024 11:15 AM [facility] BUN 17 5 - 25 mg/dL LAB CHEMISTRY METHOD 09/24/2024 11:15 AM [facility] Creatinine 0.57(L) 0.70 - 1.30 mg/dL LAB CHEMISTRY METHOD 09/24/2024 11:15 AM [facility] eGFR 102 >=60 mL/min/1. 73m2 LAB CHEMISTRY METHOD 09/24/2024 11:15 AM [facility] Comment:Calculation based on the??Chronic Kidney Disease Epidemiology Collaboration (CKD-EPI) equation refit??without adjustment for race. BUN/Creatinine Ratio 29.8 LAB CHEMISTRY METHOD 09/24/2024 11:15 AM [facility] Calcium 8.7 8.5 - 10.5 mg/dL LAB CHEMISTRY METHOD 09/24/2024 11:15 AM [facility] AST (SGOT) 21 10 - 42 unit/L LAB CHEMISTRY METHOD 09/24/2024 11:15 AM [facility] ALT (SGPT) 38 10 - 60 unit/L LAB CHEMISTRY METHOD 09/24/2024 11:15 AM [facility] Alkaline Phosphatase 102 42 - 121 unit/L LAB CHEMISTRY METHOD 09/24/2024 11:15 AM [facility] Total Protein 6.0 6.0 - 8.0 g/dL LAB CHEMISTRY METHOD 09/24/2024 11:15 AM [facility] Albumin 3.3 3.2 - 5.0 g/dL LAB CHEMISTRY METHOD 09/24/2024 11:15 AM [facility] Total Bilirubin 0.2 0.0 - 1.4 mg/dL LAB CHEMISTRY METHOD 09/24/2024 11:15 AM [facility] Blood Venous blood specimen / Unknown Venipuncture / Unknown 09/24/2024 6:55 AM EST 09/24/2024 10:15 AM EST us Kris Osorio MD LAB BLOOD ORDERABLES Final Res ult [facility] [address] [place] [address], * (ABNORMAL) Complete blood count (09/24/2024 6:55 AM EST) WBC 8.9 4.8 - 10.8 K/mcL LAB HEMETOLOGY METHOD 09/24/2024 10:37 AM EST [facility] RBC 4.60 4.50 - 5.50 M/mcL LAB HEMETOLOGY METHOD 09/24/2024 10:37 AM [facility] Hemoglobin 12.3(L) 13.5 - 17.5 g/dL LAB HEMETOLOGY METHOD 09/24/2024 10:37 AM [facility] Hematocrit 38.7(L) 42.0 - 54.0 % LAB HEMETOLOGY METHOD 09/24/2024 10:37 AM [facility] MCV 84.7 79.0 - 98.0 FL LAB HEMETOLOGY METHOD 09/24/2024 10:37 AM [facility] MCH 26.9(L) 27.0 - 32.0 pcg LAB HEMETOLOGY METHOD 09/24/2024 10:37 AM [facility] MCHC 31.8(L) 32.0 - 37.0 g/dL LAB HEMETOLOGY METHOD 09/24/2024 10:37 AM [facility] RDW 13.7 11.0 - 15.0 % LAB HEMETOLOGY METHOD 09/24/2024 10:37 AM [facility] Platelets 194 130 - 400 K/mcL LAB HEMETOLOGY METHOD 09/24/2024 10:37 AM [facility] MPV 10.3 7.0 - 11.0 FL LAB HEMETOLOGY METHOD 09/24/2024 10:37 AM [facility] NRBC 0.2 <1.0 % LAB HEMETOLOGY METHOD 09/24/2024 10:37 AM [facility] NRBC Absolute 0.02 <0.10 K/mcL LAB HEMETOLOGY METHOD 09/24/2024 10:37 AM [facility] Blood Venous blood specimen / Unknown Venipuncture / Unknown 09/24/2024 6:55 AM EST 09/24/2024 10:15 AM EST Kris Osorio MD LAB BLOOD ORDERABLES Final Res ult [facility] ([facility]) [facility] [address] [place] [address], documented in this encounter Visit Diagnoses Diagnosis Benign prostatic hyperplasia without lower urinary tract symptoms Vitamin D deficiency, unspecified Essential (primary) hypertension Unspecified essential hypertension documented in this encounter Care Teams Medicine Assistant Relationship Specialty Start Date End Date Farideh Garcia MD [address] [place] [address] [address] [place] [address] PCP - General Geriatric Medicine 09/16/24 documented as of this encounter
--- OUTSIDE RECORDS SUMMARY | 2024-12-16 14:53 | XMS_ITS | Encounter Summary ---
Author Organization [facility] Address [address] [place] [address] Care Team Providers Care Raker Buffing Wheel Name Role Phone Farideh Garcia MD Primary Care Provider Encounter Details Date Type Department Care Team (Late st Contact Info) Description 12/15/2024 Lab Requisition [facility] - Main Lab [address] Pending Sale To [facility] [place] [address] Farideh Garcia MD [address] [place] [address] Frequency of micturition Social History Tobacco Use Types Packs/Day Years Used Date Smoking Tobacco: Never Assessed Sex and Gender Information Value Date Recorded Sex Assigned at Not on file Legal Sex Male 9:10 PM EST Gender Identity Not on file Sexual Orientation Not on file documented as of this encounter Plan of Treatment Pending Results Name Type Priority Associated Diagnoses Date /Time Culture urine Microbiology Routine Frequency of micturition 12/14/2024 1:00 PM EDT documented as of this encounter Procedures Procedure Name Priority Date/Time Associated Diagnosis Comments URINALYSIS WITH REFLEX MICROSCOPIC Routine 12/14/2024 1:00 PM EDT Frequency of micturition URINALYSIS WITH REFLEX MICROSCOPIC Routine 12/14/2024 1:00 PM EDT Frequency of micturition CULTURE URINE Routine 12/14/2024 1:00 PM EDT Frequency of micturition documented in this encounter Results * (ABNORMAL) Urinalysis with reflex microscopic (12/14/2024 1:00 PM EDT) Specific [place] Urine 1.020 1.003 - 1.030 LAB URINALYSIS - AUTOMATED METHOD 12/15/2024 12:12 PM [facility] pH, Urine 8.0 5.0 - 8.0 pH LAB URINALYSIS - AUTOMATED METHOD 12/15/2024 12:12 PM [facility] Leukocytes, Urine Trace(A) Negative LAB URINALYSIS - AUTOMATED METHOD 12/15/2024 12:12 PM [facility] Nitrite, Urine Negative Negative LAB URINALYSIS - AUTOMATED METHOD 12/15/2024 12:12 PM [facility] Protein, Urine Trace <=Trace mg/dL LAB URINALYSIS - AUTOMATED METHOD 12/15/2024 12:12 PM [facility] Glucose, Urine Negative Negative mg/dL LAB URINALYSIS - AUTOMATED METHOD 12/15/2024 12:12 PM [facility] Ketones, Urine Trace(A) Negative mg/dL LAB URINALYSIS - AUTOMATED METHOD 12/15/2024 12:12 PM [facility] Urobilinogen, Urine 2.0(A) 0.2 - 1.0 mg/dL LAB URINALYSIS - AUTOMATED METHOD 12/15/2024 12:12 PM [facility] Bilirubin, Urine Negative Negative LAB URINALYSIS - AUTOMATED METHOD 12/15/2024 12:12 PM [facility] Blood, Urine Negative Negative LAB URINALYSIS - AUTOMATED METHOD 12/15/2024 12:12 PM [facility] RBC, Urine 4.8(H) 0 - 4 /HPF LAB URINALYSIS - AUTOMATED METHOD 12/15/2024 12:12 PM [facility] WBC, Urine 0.9 0 - 4 /HPF LAB URINALYSIS - AUTOMATED METHOD 12/15/2024 12:12 PM [facility] Squamous Epithelial, Urine 15 0 - 60 /LPF LAB URINALYSIS - AUTOMATED METHOD 12/15/2024 12:12 PM EDT [facility] Bacteria, Urine Negative Negative /HPF LAB URINALYSIS - AUTOMATED METHOD 12/15/2024 12:12 PM EDT [facility] Hyaline Casts, Urine 0.0 0 - 3 /LPF LAB URINALYSIS - AUTOMATED METHOD 12/15/2024 12:12 PM EDT [facility] Urine Urine specimen from urethra / Unknown Non-blood Collection / Unknown 12/14/2024 1:00 PM EDT 12/15/2024 11:50 AM EDT us Farideh Garcia MD LAB URINE ORDERABLES Final Resul t [facility] [address] [place] [address], documented in this encounter Visit Diagnoses Diagnosis Frequency of micturition Urinary frequency documented in this encounter Care Teams Raker Buffing Wheel Relationship Specialty Start Date End Date Farideh Garcia MD [address] [place] [address] [address] [place] [address] PCP - General Geriatric Medicine 09/16/24 documented as of this encounter
--- OUTSIDE RECORDS SUMMARY | 2024-12-16 14:53 | XMS_ITS | Encounter Summary ---
Author Organization [facility] Address [address] [place] [address] Care Team Providers Care Salesperson Furniture Name Role Phone Farideh Garcia MD Primary Care Provider [phone] Encounter Details Date Type Department Care Team (Late st Contact Info) Description 12/11/2024 Lab [address]quisition [facility] - Main Lab [address] [facility] [place] [address] Farideh Garcia MD [address] [place] [address] Dysuria Social History Tobacco Use Types Packs/Day Years [...] Associated Diagnosis Comments URINALYSIS WITH REFLEX MICROSCOPIC AND CULTURE Routine 12/10/2024 3:10 PM EDT Dysuria KUMARI URINE CULTURE TUBE Routine 12/10/2024 3:10 PM EDT Dysuria URINALYSIS WITH REFLEX MICROSCOPIC AND CULTURE Routine 12/10/2024 3:10 PM EDT Dysuria CULTURE URINE Routine 12/10/2024 3:10 PM EDT Dysuria documented in this encounter Results * Culture urine (12/10/2024 3:10 PM EDT) Culture, Urine >100,000 CFU/mL Mixed bacterial morphotypes present suggestive of possible contamination during collection. Suggest appropriate recollection if clinically indicated. 12/12/2024 10:31 AM [facility] Urine Urine specimen obtained by clean catch procedure / Unknown 12/10/2024 3:10 PM EDT 12/11/2024 9:03 AM EDT us Farideh Garcia MD LAB MICROBIOLOGY - GENERAL ORDER ITZEL Final Result [facility] [address] [place] [address], [place] [phone] * (ABNORMAL) Urinalysis with reflex microscopic and culture (12/10/2024 3:10 PM EDT) Specific [place] Urine 1.020 1.003 - 1.030 LAB URINALYSIS - AUTOMATED METHOD 12/11/2024 9:03 AM [facility] pH, Urine 7.0 5.0 - 8.0 pH LAB URINALYSIS - AUTOMATED METHOD 12/11/2024 9:03 AM [facility] Leukocytes, Urine Trace(A) Negative LAB URINALYSIS - AUTOMATED METHOD 12/11/2024 9:03 AM [facility] Nitrite, Urine Positive(A) Negative LAB URINALYSIS - AUTOMATED METHOD 12/11/2024 9:03 AM [facility] Protein, Urine Negative <=Trace mg/dL LAB URINALYSIS - AUTOMATED METHOD 12/11/2024 9:03 AM [facility] Glucose, Urine Negative Negative mg/dL LAB URINALYSIS - AUTOMATED METHOD 12/11/2024 9:03 AM [facility] Ketones, Urine Negative Negative mg/dL LAB URINALYSIS - AUTOMATED METHOD 12/11/2024 9:03 AM [facility] Urobilinogen , Urine 0.2 0.2 - 1.0 mg/dL LAB URINALYSIS - AUTOMATED METHOD 12/11/2024 9:03 AM [facility] Bilirubin, Urine Negative Negative LAB URINALYSIS - AUTOMATED METHOD 12/11/2024 9:03 AM EDT [facility] Blood, Urine Negative Negative LAB URINALYSIS - AUTOMATED METHOD 12/11/2024 9:03 AM [facility] RBC, Urine 7.0(H) 0 - 4 /HPF LAB URINALYSIS - AUTOMATED METHOD 12/11/2024 9:03 AM [facility] WBC, Urine 3.8 0 - 4 /HPF LAB URINALYSIS - AUTOMATED METHOD 12/11/2024 9:03 AM [facility] Squamous Epithelial, Urine 67(H) 0 - 60 /LPF LAB URINALYSIS - AUTOMATED METHOD 12/11/2024 9:03 AM [facility] Bacteria, Urine Many(A) Negative /HPF LAB URINALYSIS - AUTOMATED METHOD 12/11/2024 9:03 AM [facility] Hyaline Casts, Urine 2.0 0 - 3 /LPF LAB URINALYSIS - AUTOMATED METHOD 12/11/2024 9:03 AM [facility] Urine Urine specimen obtained by clean catch procedure / Unknown 12/10/2024 3:10 PM EDT 12/11/2024 8:32 AM EDT us Farideh Garcia MD LAB URINE ORDERABLES Final Resul t [facility] [address] [place] [address], * Kumari urine culture tube (12/10/2024 3:10 PM EDT) Extra Tube Hold for add-ons. 12/11/2024 10:01 AM EDT [facility] Comment:Auto resulted. Urine Urine specimen obtained by clean catch procedure / Unknown 12/10/2024 3:10 PM EDT 12/11/2024 8:32 AM EDT us Farideh Garcia MD LAB URINE ORDERABLES Final Resul t [facility] ([facility]) [facility] [address] [place] [address], documented in this encounter Visit Diagnoses Diagnosis Dysuria documented in this encounter Care Teams Salesperson Furniture Relationship Specialty Start Date End Date Farideh Garcia MD [address] [place] [address] [address] [place] [address] PCP - General Geriatric Medicine 09/16/24 documented as of this encounter
--- OUTSIDE RECORDS SUMMARY | 2024-12-16 14:53 | XMS_ITS | Encounter Summary ---
Author Organization [facility] Address [address] [place] [address] Care Team Providers Care Plaster Block Layer Name Role Phone Farideh Garcia MD Primary Care Provider [phone] Encounter Details Date Type Department Care Team (Late st Contact Info) Description 12/15/2024 Lab Requisition [facility] - Main Lab [address] [facility] [place] [address] Farideh Garcia MD [address] [place] [address] Benign prostatic hyperplasia with lower urinary tract symptoms Social History Tobacco Use Types Packs/Day Years [...] prostatic hyperplasia with lower urinary tract symptoms documented in this encounter Results * (ABNORMAL) Prostate specific antigen diagnostic (12/15/2024 5:57 AM EDT) PSA 5.48(H) 0.00 - 4.00 ng/mL LAB CHEMISTRY METHOD 12/15/2024 12:44 PM EDT [facility] Blood Venous blood specimen / Unknown Venipuncture / Unknown 12/15/2024 5:57 AM EDT 12/15/2024 11:52 AM EDT Narrative [facility] - 12/15/2024 12:44 PM EDT The Siemens Advia Centaur Chemiluminescent Immunoassay is used. Results obtained with different assay methods or kits cannot be used interchangeably. Results cannot be interpreted as absolute evidence of the presence or absence of malignant disease. us Farideh Garcia MD LAB BLOOD ORDERABLES Final Resul t [facility] ([facility]) [facility] [address] [place] [address], documented in this encounter Visit Diagnoses Diagnosis Benign prostatic hyperplasia with lower urinary tract symptoms documented in this encounter Care Teams Plaster Block Layer Relationship Specialty Start Date End Date Farideh Garcia MD [address] [place] [address] [address] [place] [address] PCP - General Geriatric Medicine 09/16/24 documented as of this encounter
--- OUTSIDE RECORDS SUMMARY | 2024-12-16 14:53 | XMS_ITS | Encounter Summary ---
Author Organization [facility] Address [address] [place] [address] Care Team Providers Care Ostrich Farmer Name Role Phone Farideh Garcia MD Primary Care Provider [phone] Encounter Details Date Type Department Care Team (Late st Contact Info) Description 09/16/2024 Lab Requisition [facility] - Main Lab [address] [facility] [place] [address] Farideh Garcia MD [address] [place] [address] Shortness of breath; Acute cough Social History [...] Procedure Name Priority Date/Time Associated Diagnosis Comments [id number], RSV, FLU A AND B QUALITATIVE RT-PCR, LOCAL REFERENCE LAB Routine 09/15/2024 12:00 PM EST Shortness of breath Acute cough documented in this encounter Results * [id number], RSV, Influenza A and B qualitative RT-PCR (09/15/2024 12:00 PM EST) SARS COV-2 Not Detected Not Detected LAB MOLECULAR DIAGNOSTICS METHOD 09/16/2024 12:35 PM EST [facility] LAB Comment: Disclaimer: The manner in which this information is used to guide patient care is the responsibility of the healthcare provider. Testing was performed using the [employer]er[employer] m SARS-CoV-2 test. This test has been [...] for Healthcare Providers can be found at: https://www.fda.gov/media/019805/download Fact sheet for Patients can be found at: https://www.fda.gov/media/971585/download Influenza A PCR Not Detected Not Detected LAB MOLECULAR DIAGNOSTICS METHOD 09/16/2024 12:35 PM EST [facility] Influenza B PCR Not Detected Not Detected LAB MOLECULAR DIAGNOSTICS METHOD 09/16/2024 12:35 PM [facility] RSV PCR Not Detected Not Detected LAB MOLECULAR DIAGNOSTICS METHOD 09/16/2024 12:35 PM [facility] Swab Nasopharyngeal structure / Unknown 09/15/2024 12:00 PM EST 09/16/2024 9:43 AM EST Farideh Garcia MD LAB MICROBIOLOGY - GENERAL ORDER ITZEL Final Result [facility] [address] [place] [address], documented in this encounter Visit Diagnoses Diagnosis Shortness of breath Acute cough documented in this encounter Additional Health Concerns Infection Onset Date Last Indicated Resolved Time Respiratory Rule-Out 09/16/2024 09/15/2024 025 12:35 PM EST documented as of this encounter Care Teams Ostrich Farmer Relationship Specialty Start Date End Date Farideh Garcia MD [address] [facility] [address] [place] [address] PCP - General Geriatric Medicine 09/16/24 documented as of this encounter
== END 2024-12-16 13:55 | disposition home or self-care (01) ==
LOC: HO.HNS 12:58
PROVIDERS: PCP Emergency Medicine; Visit Provider Physician Assistant
DX: Z98.1 Arthrodesis status (principal)
CPT/HCPCS: 99024

== ENCOUNTER 2024-12-16 12:58 | Outpatient (REF) | payer MEDICARE, MEDICAID, SELFPAY ==
--- NOTE | ~2024-12-16 | XR_ITS ---
EXAMINATION: XR CERVICAL SPINE 4-5 VIEWS HISTORY: Z98.1 - Arthrodesis status COMPARISON: Correlation is made with a CT of the cervical spine dated 09/04/2022. FINDINGS: AP, and neutral, flexion, and extension lateral views of the cervical spine are submitted. Osseous mineralization is normal. In the interval since the prior study, the patient is status post anterior cervical disc fusion at C4-5. The fusion hardware is intact. There is diffuse severe degenerative disc disease with disc space narrowing and osteophyte formation. The vertebral bodies maintain normal height without evidence of fracture or subluxation. There is no abnormal motion with flexion or extension. There is prevertebral soft tissue swelling, consistent with the history of recent surgery on 12/11/2024. Calcifications in the neck are likely related to the internal carotid arteries. XR/XR cervical spine 4V IMPRESSION: Status post anterior cervical disc fusion C4-5. No abnormal motion with flexion or extension. Diffuse severe degenerative disc disease. Electronically signed by: Marek March MD 12/18/2024 10:06 AM EDT
== END 2024-12-16 12:59 | disposition home or self-care (01) ==
LOC: HO.HOSX 12:58
PROVIDERS: PCP Emergency Medicine; Visit Provider Physician Assistant
DX: Z98.1 Arthrodesis status (principal)
CPT/HCPCS: 72050; 99212

== ENCOUNTER → 2024-12-16 13:02 | Outpatient (BNV) | payer MEDICARE, MEDICAID, SELFPAY | PROVIDERS: PCP Emergency Medicine; Visit Provider Radiology Diagnostic Radiology | DX: M54.9 Dorsalgia, unspecified (principal); Z98.1 Arthrodesis status | CPT/HCPCS: 72050 ==

== ENCOUNTER 2024-12-31 12:57 | Outpatient (AMB) | payer MEDICARE, MEDICAID, SELFPAY ==
--- OUTSIDE RECORDS SUMMARY | 2024-12-31 13:15 | XMS_ITS | Clinical Summary ---
Author Organization 299 [facility] Address [address] [place] [address] Phone Care Team Providers Care Neurology Teacher Name Role Phone Farideh Garcia MD Primary Care Provider [phone] Encounters Date Type Department Care Team Description 12/15/2024 Lab Requisition [facility] [address] [place] [phone] Farideh Garcia MD Benign prostatic hyperplasia with lower urinary tract symptoms 12/15/2024 Lab Requisition [facility] [address] [place] [phone] Farideh Garcia MD Frequency of micturition 12/11/2024 Lab Requisition [facility] [address] [place] [address] Farideh Garcia MD Dysuria 10/21/2024 Lab Requisition [facility] [address] [place] [phone] Farideh Garcia MD Vitamin D deficiency, unspecified from Last 3 Months Social History Tobacco [...] 5:45 AM EST Vitamin D deficiency, unspecified COMPREHENSIVE METABOLIC PANEL Routine 09/24/2024 6:55 AM EST Benign prostatic hyperplasia without lower urinary tract symptoms Vitamin D deficiency, unspecified Essential (primary) hypertension from Last 3 Months or Most Recently Relevant to Health Maintenance Results * (ABNORMAL) Prostate specific antigen diagnostic (12/15/2024 5:57 AM EDT) PSA 5.48(H) 0.00 - 4.00 ng/mL LAB CHEMISTRY METHOD 12/15/2024 12:44 PM EDT [facility] Blood Venous blood specimen / Unknown Venipuncture / Unknown 12/15/2024 5:57 AM EDT 12/15/2024 11:52 AM EDT Narrative [facility] - 12/15/2024 12:44 PM EDT The Siemens Advia Centaur Chemiluminescent Immunoassay is used. Results obtained with different assay methods or kits cannot be used interchangeably. Results cannot be interpreted as absolute evidence of the presence or absence of malignant disease. us Farideh Garcia MD LAB BLOOD ORDERABLES Final Resul t [facility] [address] [place] [address], * (ABNORMAL) Urinalysis with reflex microscopic (12/14/2024 1:00 PM EDT) Specific [place] Urine 1.020 1.003 - 1.030 LAB URINALYSIS - AUTOMATED METHOD 12/15/2024 12:12 PM [facility] pH, Urine 8.0 5.0 - 8.0 pH LAB URINALYSIS - AUTOMATED METHOD 12/15/2024 12:12 PM [facility] Leukocytes, Urine Trace(A) Negative LAB URINALYSIS - AUTOMATED METHOD 12/15/2024 12:12 PM [facility] Nitrite, Urine Negative Negative LAB URINALYSIS - AUTOMATED METHOD 12/15/2024 12:12 PM [facility] Protein, Urine Trace <=Trace mg/dL LAB URINALYSIS - AUTOMATED METHOD 12/15/2024 12:12 PM [facility] Glucose, Urine Negative Negative mg/dL LAB URINALYSIS - AUTOMATED METHOD 12/15/2024 12:12 PM [facility] Ketones, Urine Trace(A) Negative mg/dL LAB URINALYSIS - AUTOMATED METHOD 12/15/2024 12:12 PM [facility] Urobilinogen, Urine 2.0(A) 0.2 - 1.0 mg/dL LAB URINALYSIS - AUTOMATED METHOD 12/15/2024 12:12 PM [facility] Bilirubin, Urine Negative Negative LAB URINALYSIS - AUTOMATED METHOD 12/15/2024 12:12 PM [facility] Blood, Urine Negative Negative LAB URINALYSIS - AUTOMATED METHOD 12/15/2024 12:12 PM [facility] RBC, Urine 4.8(H) 0 - 4 /HPF LAB URINALYSIS - AUTOMATED METHOD 12/15/2024 12:12 PM [facility] WBC, Urine 0.9 0 - 4 /HPF LAB URINALYSIS - AUTOMATED METHOD 12/15/2024 12:12 PM [facility] Squamous Epithelial, Urine 15 0 - 60 /LPF LAB URINALYSIS - AUTOMATED METHOD 12/15/2024 12:12 PM EDT [facility] Bacteria, Urine Negative Negative /HPF LAB URINALYSIS - AUTOMATED METHOD 12/15/2024 12:12 PM EDT [facility] Hyaline Casts, Urine 0.0 0 - 3 /LPF LAB URINALYSIS - AUTOMATED METHOD 12/15/2024 12:12 PM EDT [facility] Urine Urine specimen from urethra / Unknown Non-blood Collection / Unknown 12/14/2024 1:00 PM EDT 12/15/2024 11:50 AM EDT us Farideh Garcia MD LAB URINE ORDERABLES Final Resul t [facility] [address] [place] [address], [place] [phone] * (ABNORMAL) Culture urine (12/14/2024 1:00 PM EDT) Only the most recent of2 resultswithin the time period is included. Culture, Urine 10,000-49,000 CFU/mL Proteus mirabilis(A) SHANIA 12/19/2024 8:39 AM EDT [facility] Comment: Edited result: Previously reported as Proteus species on 12/18/2024 at 1125 EDT. Culture, Urine 10,000-49,000 CFU/mL Morganella morganii ssp morganii(A) SHANIA 12/19/2024 8:39 AM EDT [facility] Comment: The organism value for this result has been updated. These results have been appended to the previously preliminary verified report. Urine Urine specimen from urethra / Unknown Non-blood Collection / Unknown 12/14/2024 1:00 PM EDT 12/15/2024 11:50 AM EDT Narrative Organism Antibiotic Method Susceptibility Proteus mirabilis Amoxicillin/Clavulanate SHANIA 4 ug/ml: Susceptible Proteus mirabilis Ampicillin/Sulbactam SHANIA <=2 ug/ml: Susceptible Proteus mirabilis Piperacillin/Tazobactam SHANIA <=4 ug/ml: Susceptible Proteus mirabilis Cefazolin (Urine) SHANIA 4 ug/ml: Susceptible Proteus mirabilis Cefoxitin SHANIA <=4 ug/ml: Susceptible Proteus mirabilis Ceftazidime SHANIA <=0.5 ug/ml: Susceptible Proteus mirabilis Ceftriaxone SHANIA <=0.25 ug/ml: Susceptible Proteus mirabilis Cefepime SHANIA <=0.12 ug/ml: Susceptible Proteus mirabilis Meropenem SHANIA 0.5 ug/ml: Susceptible Proteus mirabilis Amikacin SHANIA 4 ug/ml: Susceptible Proteus mirabilis Gentamicin SHANIA <=1 ug/ml: Susceptible Proteus mirabilis Ciprofloxacin SHANIA <=0.06 ug/ml: Susceptible Proteus mirabilis Levofloxacin SHANIA <=0.12 ug/ml: Susceptible Proteus mirabilis Nitrofurantoin SHANIA 128 ug/ml: Resistant Proteus mirabilis Trimethoprim/Sulfame thoxazo le SHANIA <=20 ug/ml: Susceptible Morganella morganii ssp morganii Amoxicillin/Clavulanate SHANIA >=32 ug/ml: Resistant Morganella morganii ssp morganii Ampicillin/Sulbactam SHANIA 16 ug/ml: Intermediate Morganella morganii ssp morganii Piperacillin/Tazobactam SHANIA <=4 ug/ml: Susceptible Morganella morganii ssp morganii Cefoxitin SHANIA 16 ug/ml: Intermediate Morganella morganii ssp morganii Meropenem SHANIA <=0.25 ug/ml: Susceptible Morganella morganii ssp morganii Amikacin SHANIA 4 ug/ml: Susceptible Morganella morganii ssp morganii Ciprofloxacin SHANIA <=0.06 ug/ml: Susceptible Morganella morganii ssp morganii Levofloxacin SAHNIA <=0.12 ug/ml: Susceptible Morganella morganii ssp morganii Nitrofurantoin SHANIA 128 ug/ml: Resistant Morganella morganii ssp morganii Trimethoprim/Sulfamethoxazo le SHANIA <=20 ug/ml: Susceptible us Farideh Garcia MD LAB MICROBIOLOGY - GENERAL ORDER ITZEL Final Result [facility] [address] [place] [address], [place] [phone] * (ABNORMAL) Urinalysis with reflex microscopic and culture (12/10/2024 3:10 PM [facility]) Specific [place] Urine 1.020 1.003 - 1.030 LAB URINALYSIS - AUTOMATED METHOD 12/11/2024 9:03 AM [facility] pH, Urine 7.0 5.0 - 8.0 pH LAB URINALYSIS - AUTOMATED METHOD 12/11/2024 9:03 AM [facility] Leukocytes, Urine Trace(A) Negative LAB URINALYSIS - AUTOMATED METHOD 12/11/2024 9:03 AM [facility] Nitrite, Urine Positive(A) Negative LAB URINALYSIS - AUTOMATED METHOD 12/11/2024 9:03 AM [facility] Protein, Urine Negative <=Trace mg/dL LAB URINALYSIS - AUTOMATED METHOD 12/11/2024 9:03 AM [facility] Glucose, Urine Negative Negative mg/dL LAB URINALYSIS - AUTOMATED METHOD 12/11/2024 9:03 AM [facility] Ketones, Urine Negative Negative mg/dL LAB URINALYSIS - AUTOMATED METHOD 12/11/2024 9:03 AM [facility] Urobilinogen , Urine 0.2 0.2 - 1.0 mg/dL LAB URINALYSIS - AUTOMATED METHOD 12/11/2024 9:03 AM [facility] Bilirubin, Urine Negative Negative LAB URINALYSIS - AUTOMATED METHOD 12/11/2024 9:03 AM [facility] Blood, Urine Negative Negative LAB URINALYSIS - AUTOMATED METHOD 12/11/2024 9:03 AM [facility] RBC, Urine 7.0(H) 0 - 4 /HPF LAB URINALYSIS - AUTOMATED METHOD 12/11/2024 9:03 AM [facility] WBC, Urine 3.8 0 - 4 /HPF LAB URINALYSIS - AUTOMATED METHOD 12/11/2024 9:03 AM EDT [facility] Squamous Epithelial, Urine 67(H) 0 - 60 /LPF LAB URINALYSIS - AUTOMATED METHOD 12/11/2024 9:03 AM EDT [facility] Bacteria, Urine Many(A) Negative /HPF LAB URINALYSIS - AUTOMATED METHOD 12/11/2024 9:03 AM EDT [facility] Hyaline Casts, Urine 2.0 0 - 3 /LPF LAB URINALYSIS - AUTOMATED METHOD 12/11/2024 9:03 AM EDT [facility] Urine Urine specimen obtained by clean catch procedure / Unknown 12/10/2024 3:10 PM EDT 12/11/2024 8:32 AM EDT us Farideh Garcia MD LAB URINE ORDERABLES Final Resul t Performing Organization Address [facility]/ZIP Co de Phone Number [facility] [address] [place] [address], [place] [phone] * Kumari urine culture tube (12/10/2024 3:10 PM EDT) Pathologist [facility] Extra Tube Hold for add-ons. 12/11/2024 10:01 AM EDT [facility] Comment:Auto resulted. Urine Urine specimen obtained by clean catch procedure / Unknown 12/10/2024 3:10 PM EDT 12/11/2024 8:32 AM EDT us Farideh Garcia MD LAB URINE ORDERABLES Final Resul t Performing Organization Address [facility]/ZIP Co de Phone Number [facility] [address] [place] [address], [place] [phone] * Vitamin D 25 hydroxy (10/22/2024 5:45 AM EST) Vit D, 25-Hydroxy 61.8 30.0 - 80.0 ng/mL LAB CHEMISTRY METHOD 10/22/2024 12:24 PM [facility] Blood Venous blood specimen / Unknown Venipuncture / Unknown 10/22/2024 5:45 AM EST 10/22/2024 11:10 AM EST us Farideh Garcia MD LAB BLOOD ORDERABLES Final Resul t [facility] [address] [place] [address], [place] [phone] * (ABNORMAL) Comprehensive metabolic panel (09/24/2024 6:55 [...] MD LAB BLOOD ORDERABLES Final Res ult [facility] [address] [place] [address], from Last 3 Months or Most Recently Relevant to Health Maintenance Insurance MEDICARE MEDICAID - [place] Care Teams Neurology Teacher Relationship Specialty Start Date End Date Farideh Garcia MD [address] [place] [address] [address] [place] [address] PCP - General Geriatric Medicine 09/16/24
--- OUTSIDE RECORDS SUMMARY | 2024-12-31 13:15 | XMS_ITS | Encounter Summary ---
Author Organization [facility] Address [address] [place] [address] Care Team Providers Care Biological Technician Name Role Phone Farideh Garcia MD Primary Care Provider [phone] Encounter Details Date Type Department Care Team (Late st Contact Info) Description 09/16/2024 Lab Requisition [facility] - Main Lab [address] [facility] [place] [address] Farideh Garcia MD [address] [place] [address] Shortness of breath; Acute cough Social History [...] Procedure Name Priority Date/Time Associated Diagnosis Comments [id number], RSV, FLU A AND B QUALITATIVE RT-PCR, LOCAL REFERENCE LAB Routine 09/15/2024 12:00 PM EST Shortness of breath Acute cough documented in this encounter Results * [id number], RSV, Influenza A and B qualitative RT-PCR (09/15/2024 12:00 PM EST) SARS COV-2 Not Detected Not Detected LAB MOLECULAR DIAGNOSTICS METHOD 09/16/2024 12:35 PM EST [facility] Comment: Disclaimer: The manner in which this information is used to guide patient care is the responsibility of the healthcare provider. Testing was performed using the PageFreezer m SARS-CoV-2 test. This test has been [...] for Healthcare Providers can be found at: https://www.fda.gov/media/749746/download Fact sheet for Patients can be found at: https://www.fda.gov/media/962075/download Influenza A PCR Not Detected Not Detected LAB MOLECULAR DIAGNOSTICS METHOD 09/16/2024 12:35 PM EST [facility] Influenza B PCR Not Detected Not Detected LAB MOLECULAR DIAGNOSTICS METHOD 09/16/2024 12:35 PM [facility] RSV PCR Not Detected Not Detected LAB MOLECULAR DIAGNOSTICS METHOD 09/16/2024 12:35 PM [facility] Swab Nasopharyngeal structure / Unknown 09/15/2024 12:00 PM EST 09/16/2024 9:43 AM EST Farideh Garcia MD LAB MICROBIOLOGY - GENERAL ORDER ITZEL Final Result [facility] [address] [place] [address], documented in this encounter Visit Diagnoses Diagnosis Shortness of breath Acute cough documented in this encounter Additional Health Concerns Infection Onset Date Last Indicated Resolved Time Respiratory Rule-Out 09/16/2024 09/15/2024 025 12:35 PM EST documented as of this encounter Care Teams Biological Technician Relationship Specialty Start Date End Date Farideh Garcia MD [address] [facility] [address] [place] [address] PCP - General Geriatric Medicine 09/16/24 documented as of this encounter
--- OUTSIDE RECORDS SUMMARY | 2024-12-31 13:15 | XMS_ITS | Encounter Summary ---
Author Organization [facility] Address [address] [place] [address] Care Team Providers Care Seam Press Operator Name Role Phone Farideh Garcia MD Primary Care Provider [phone] Encounter Details Date Type Department Care Team (Late st Contact Info) Description 09/23/2024 Lab Requisition [facility] - Main Lab [address] [facility] [place] [address] Kris Osorio MD [address] [place] [id number] Benign prostatic hyperplasia without lower urinary tract [...] ORDERABLES Final Res ult Performing Organization Address [facility]/ZIP Co de Phone Number [facility] [address] [place] [address], * Magnesium (09/24/2024 6:55 AM EST) Pathologist [facility] Magnesium 2.3 1.9 - 2.6 mg/dL LAB CHEMISTRY METHOD 09/24/2024 11:04 AM EST [facility] Blood Venous blood specimen / Unknown Venipuncture / Unknown 09/24/2024 6:55 AM EST 09/24/2024 10:15 AM EST Kris Osorio MD LAB BLOOD ORDERABLES Final Res ult [facility] [address] [place] [address], * (ABNORMAL) Folate (09/24/2024 6:55 AM EST) Pathologist [facility] Folate >20.0(H) 2.8 - 17.0 ng/ml LAB CHEMISTRY METHOD 09/24/2024 11:15 AM EST [facility] Blood Venous blood specimen / Unknown Venipuncture / Unknown 09/24/2024 6:55 AM EST 09/24/2024 10:15 AM EST Kris Osorio MD LAB BLOOD ORDERABLES Final Res ult [facility] [address] [place] [address], * (ABNORMAL) Comprehensive metabolic panel (09/24/2024 6:55 AM EST) Sodium 139 133 - 145 mmol/L LAB CHEMISTRY METHOD 09/24/2024 11:[address] [facility] Potassium 3.9 3.5 - 5.5 mmol/L LAB CHEMISTRY METHOD 09/24/2024 11:[address] [facility] Chloride 103 96 - 110 mmol/L LAB CHEMISTRY METHOD 09/24/2024 11:[address] [facility] CO2 33(H) 21 - 32 mmol/L LAB CHEMISTRY METHOD 09/24/2024 11:[address] [facility] Anion Gap 3 3 - 11 LAB CHEMISTRY METHOD 09/24/2024 11:[address] [facility] Glucose 104(H) 70 - 100 mg/dL LAB CHEMISTRY METHOD 09/24/2024 11:[address] [facility] BUN 17 5 - 25 mg/dL LAB CHEMISTRY METHOD 09/24/2024 11:[address] [facility] Creatinine 0.57(L) 0.70 - 1.30 mg/dL LAB CHEMISTRY METHOD 09/24/2024 11:[address] [facility] eGFR 102 >=60 mL/min/1. 73m2 LAB CHEMISTRY METHOD 09/24/2024 11:[address] [facility] Comment:Calculation based on the??Chronic Kidney Disease Epidemiology Collaboration (CKD-EPI) equation refit??without adjustment for race. BUN/Creatinine Ratio 29.8 LAB CHEMISTRY METHOD 09/24/2024 11:[address] [facility] Calcium 8.7 8.5 - 10.5 mg/dL LAB CHEMISTRY METHOD 09/24/2024 11:[address] [facility] AST (SGOT) 21 10 - 42 unit/L LAB CHEMISTRY METHOD 09/24/2024 11:[address] [facility] ALT (SGPT) 38 10 - 60 unit/L LAB CHEMISTRY METHOD 09/24/2024 11:[address] [facility] Alkaline Phosphatase 102 42 - 121 unit/L LAB CHEMISTRY METHOD 09/24/2024 11:[address] [facility] Total Protein 6.0 6.0 - 8.0 g/dL LAB CHEMISTRY METHOD 09/24/2024 11:[address] [facility] Albumin 3.3 3.2 - 5.0 g/dL LAB CHEMISTRY METHOD 09/24/2024 11:[address] [facility] Total Bilirubin 0.2 0.0 - 1.4 mg/dL LAB CHEMISTRY METHOD 09/24/2024 11:[address] [facility] Blood Venous blood specimen / Unknown Venipuncture / Unknown 09/24/2024 6:55 AM EST 09/24/2024 10:15 AM EST us Kris Osorio MD LAB BLOOD ORDERABLES Final Res ult [facility] [address] [place] [address], * (ABNORMAL) Complete blood count (09/24/2024 6:55 AM EST) WBC 8.9 4.8 - 10.8 K/mcL LAB HEMETOLOGY METHOD 09/24/2024 10:37 AM EST [facility] RBC 4.60 4.50 - 5.50 M/mcL LAB HEMETOLOGY METHOD 09/24/2024 10:[address] [facility] Hemoglobin 12.3(L) 13.5 - 17.5 g/dL LAB HEMETOLOGY METHOD 09/24/2024 10:[address] [facility] Hematocrit 38.7(L) 42.0 - 54.0 % LAB HEMETOLOGY METHOD 09/24/2024 10:[address] [facility] MCV 84.7 79.0 - 98.0 FL LAB HEMETOLOGY METHOD 09/24/2024 10:[address] [facility] MCH 26.9(L) 27.0 - 32.0 pcg LAB HEMETOLOGY METHOD 09/24/2024 10:[address] [facility] MCHC 31.8(L) 32.0 - 37.0 g/dL LAB HEMETOLOGY METHOD 09/24/2024 10:[address] [facility] RDW 13.7 11.0 - 15.0 % LAB HEMETOLOGY METHOD 09/24/2024 10:[address] [facility] Platelets 194 130 - 400 K/mcL LAB HEMETOLOGY METHOD 09/24/2024 10:[address] [facility] MPV 10.3 7.0 - 11.0 FL LAB HEMETOLOGY METHOD 09/24/2024 10:[address] [facility] NRBC 0.2 <1.0 % LAB HEMETOLOGY METHOD 09/24/2024 10:[address] [facility] NRBC Absolute 0.02 <0.10 K/mcL LAB HEMETOLOGY METHOD 09/24/2024 10:[address] [facility] Blood Venous blood specimen / Unknown Venipuncture / Unknown 09/24/2024 6:55 AM EST 09/24/2024 10:15 AM EST Kris Osorio MD LAB BLOOD ORDERABLES Final Res ult [facility] [address] [place] [address], documented in this encounter Visit Diagnoses Diagnosis Benign prostatic hyperplasia without lower urinary tract symptoms Vitamin D deficiency, unspecified Essential (primary) hypertension Unspecified essential hypertension documented in this encounter Care Teams Seam Press Operator Relationship Specialty Start Date End Date Farideh Garcia MD [address] [place] [address] [address] [place] [address] PCP - General Geriatric Medicine 09/16/24 documented as of this encounter
--- OUTSIDE RECORDS SUMMARY | 2024-12-31 13:15 | XMS_ITS | Encounter Summary ---
Author Organization [facility] Address [address] [place] [address] Care Team Providers Care Stage Technician Name Role Phone Farideh Garcia MD Primary Care Provider [phone] Encounter Details Date Type Department Care Team (Late st Contact Info) Description 12/11/2024 Lab Requisition [facility] - Main Lab [address] [place] [address] Farideh Garcia MD [address] [place] [address] Dysuria Social History Tobacco Use Types Packs/Day [...] CULTURE Routine 12/10/2024 3:10 PM EDT Dysuria KUMAIR URINE CULTURE TUBE Routine 12/10/2024 3:10 PM [...] recollection if clinically indicated. 12/12/2024 10:31 AM [facility] Urine Urine specimen obtained by clean catch procedure / Unknown 12/10/2024 3:10 PM EDT 12/11/2024 9:03 AM EDT us Farideh Garcia MD LAB MICROBIOLOGY - GENERAL ORDER ITZEL Final Result [facility] [address] [place] [address], [place] [phone] * (ABNORMAL) Urinalysis with reflex microscopic and culture (12/10/2024 3:10 PM EDT) Specific [place] Urine 1.020 1.003 - 1.030 LAB URINALYSIS - AUTOMATED METHOD 12/11/2024 9:03 AM [facility] pH, Urine 7.0 5.0 - 8.0 pH LAB URINALYSIS - AUTOMATED METHOD 12/11/2024 9:03 AM [facility] Leukocytes, Urine Trace(A) Negative LAB URINALYSIS - AUTOMATED METHOD 12/11/2024 9:03 AM [facility] Nitrite, Urine Positive(A) Negative LAB URINALYSIS - AUTOMATED METHOD 12/11/2024 9:03 AM [facility] Protein, Urine Negative <=Trace mg/dL LAB URINALYSIS - AUTOMATED METHOD 12/11/2024 9:03 AM [facility] Glucose, Urine Negative Negative mg/dL LAB URINALYSIS - AUTOMATED METHOD 12/11/2024 9:03 AM [facility] Ketones, Urine Negative Negative mg/dL LAB URINALYSIS - AUTOMATED METHOD 12/11/2024 9:03 AM [facility] Urobilinogen , Urine 0.2 0.2 - 1.0 mg/dL LAB URINALYSIS - AUTOMATED METHOD 12/11/2024 9:03 AM [facility] Bilirubin, Urine Negative Negative LAB URINALYSIS - AUTOMATED METHOD 12/11/2024 9:03 AM EDT [facility] Blood, Urine Negative Negative LAB URINALYSIS - AUTOMATED METHOD 12/11/2024 9:03 AM [facility] RBC, Urine 7.0(H) 0 - 4 /HPF LAB URINALYSIS - AUTOMATED METHOD 12/11/2024 9:03 AM [facility] WBC, Urine 3.8 0 - 4 /HPF LAB URINALYSIS - AUTOMATED METHOD 12/11/2024 9:03 AM [facility] Squamous Epithelial, Urine 67(H) 0 - 60 /LPF LAB URINALYSIS - AUTOMATED METHOD 12/11/2024 9:03 AM [facility] Bacteria, Urine Many(A) Negative /HPF LAB URINALYSIS - AUTOMATED METHOD 12/11/2024 9:03 AM [facility] Hyaline Casts, Urine 2.0 0 - 3 /LPF LAB URINALYSIS - AUTOMATED METHOD 12/11/2024 9:03 AM [facility] Urine Urine specimen obtained by clean catch procedure / Unknown 12/10/2024 3:10 PM EDT 12/11/2024 8:32 AM EDT us Farideh Garcia MD LAB URINE ORDERABLES Final Resul t [facility] [address] [place] [address], * Kumari urine culture tube (12/10/2024 3:10 PM EDT) Extra Tube Hold for add-ons. 12/11/2024 10:01 AM EDT [facility] Comment:Auto resulted. Urine Urine specimen obtained by clean catch procedure / Unknown 12/10/2024 3:10 PM EDT 12/11/2024 8:32 AM EDT us Farideh Garcia MD LAB URINE ORDERABLES Final Resul t [facility] ([facility]) [facility] [address] [place] [address], documented in this encounter Visit Diagnoses Diagnosis Dysuria documented in this encounter Care Teams Stage Technician Relationship Specialty Start Date End Date Farideh Garcia MD [address] [place] [address] [address] [place] [address] PCP - General Geriatric Medicine 09/16/24 documented as of this encounter
--- OUTSIDE RECORDS SUMMARY | 2024-12-31 13:15 | XMS_ITS | Encounter Summary ---
Author Organization [facility] Address [address] [place] [address] Care Team Providers Care Career Resource Specialist Name Role Phone Farideh Garcia MD Primary Care Provider [phone] Encounter Details Date Type Department Care Team (Late st Contact Info) Description 08/21/2024 Lab Requisition [facility] - Main Lab [address] [place] [address] Kris Osorio MD [address] [place] [id number] Essential (primary) hypertension Social History Tobacco Use [...] LAB CHEMISTRY METHOD 08/22/2024 10:[address] [facility] Potassium 3.5 3.5 - 5.5 mmol/L LAB CHEMISTRY METHOD 08/22/2024 10:[address] [facility] Chloride 105 96 - 110 mmol/L LAB CHEMISTRY METHOD 08/22/2024 10:[address] [facility] CO2 31 21 - 32 mmol/L LAB CHEMISTRY METHOD 08/22/2024 10:42 AM [facility] Anion Gap 6 3 - 11 LAB CHEMISTRY METHOD 08/22/2024 10:42 AM [facility] Glucose 124(H) 70 - 100 mg/dL LAB CHEMISTRY METHOD 08/22/2024 10:42 AM [facility] BUN 16 5 - 25 mg/dL LAB CHEMISTRY METHOD 08/22/2024 10:42 AM [facility] Creatinine 0.61(L) 0.70 - 1.30 mg/dL LAB CHEMISTRY METHOD 08/22/2024 10:42 AM [facility] eGFR 100 >=60 mL/min/1. 73m2 LAB CHEMISTRY METHOD 08/22/2024 10:42 AM [facility] Comment:Calculation based on the??Chronic Kidney Disease Epidemiology Collaboration (CKD-EPI) equation refit??without adjustment for race. BUN/Creatinine Ratio 26.2 LAB CHEMISTRY METHOD 08/22/2024 10:42 AM [facility] Calcium 8.4(L) 8.5 - 10.5 mg/dL LAB CHEMISTRY METHOD 08/22/2024 10:42 AM [facility] Blood Venous blood specimen / Unknown Venipuncture / Unknown 08/22/2024 5:29 AM EST 08/22/2024 10:05 AM EST us Kris Osorio MD LAB BLOOD ORDERABLES Final Res ult [facility] [address] [place] [address], documented in this encounter Visit Diagnoses Diagnosis Essential (primary) hypertension Unspecified essential hypertension documented in this encounter Additional Health Concerns Infection Onset Date Last Indicated Resolved Time Respiratory Rule-Out 09/16/2024 09/15/2024 025 12:35 PM EST documented as of this encounter Care Teams Career Resource Specialist Relationship Specialty Start Date End Date Farideh Garcia MD [address] [facility] [address] [place] [address] PCP - General Geriatric Medicine 09/16/24 documented as of this encounter
--- OUTSIDE RECORDS SUMMARY | 2024-12-31 13:15 | XMS_ITS | Encounter Summary ---
Author Organization [facility] Address [address] [place] [address] Care Team Providers Care Manager Support Name Role Phone Farideh Garcia MD Primary Care Provider [phone] Encounter Details Date Type Department Care Team (Late st Contact Info) Description 10/21/2024 Lab Requisition [facility] - Main Lab [address] [facility] [place] [address] Farideh Garcia MD [address] [place] [address] Vitamin D deficiency, unspecified Social History Tobacco [...] PM EST [facility] Blood Venous blood specimen / Unknown Venipuncture / Unknown 10/22/2024 5:45 AM EST 10/22/2024 11:10 AM EST us Farideh Garcia MD LAB BLOOD ORDERABLES Final Resul t [facility] [address] [place] [address], documented in this encounter Visit Diagnoses Diagnosis Vitamin D deficiency, unspecified documented in this encounter Care Teams Manager Support Relationship Specialty Start Date End Date Farideh Garcia MD [address] [place] [address] [address] [place] [address] PCP - General Geriatric Medicine 09/16/24 documented as of this encounter
--- OUTSIDE RECORDS SUMMARY | 2024-12-31 13:15 | XMS_ITS | Encounter Summary ---
Author Organization [facility] Address [address] [place] [address] Care Team Providers Care Data Reduction Technician Name Role Phone Farideh Garcia MD Primary Care Provider [phone] Encounter Details Date Type Department Care Team (Late st Contact Info) Description 12/15/2024 Lab Requisition [facility] - Main Lab [address] [facility] [place] [address] Farideh Garcia MD [address] [place] [address] Frequency of micturition Social History Tobacco Use [...] reflex microscopic (12/14/2024 1:00 PM EDT) Specific [place] Urine 1.020 1.003 - 1.030 LAB URINALYSIS - AUTOMATED METHOD 12/15/2024 12:12 PM EDT [facility] pH, Urine 8.0 5.0 - 8.0 pH LAB URINALYSIS - AUTOMATED METHOD 12/15/2024 12:[address] [facility] Leukocytes, Urine Trace(A) Negative LAB URINALYSIS - AUTOMATED METHOD 12/15/2024 12:[address] [facility] Nitrite, Urine Negative Negative LAB URINALYSIS - AUTOMATED METHOD 12/15/2024 12:[address] [facility] Protein, Urine Trace <=Trace mg/dL LAB URINALYSIS - AUTOMATED METHOD 12/15/2024 12:[address] [facility] Glucose, Urine Negative Negative mg/dL LAB URINALYSIS - AUTOMATED METHOD 12/15/2024 12:[address] [facility] Ketones, Urine Trace(A) Negative mg/dL LAB URINALYSIS - AUTOMATED METHOD 12/15/2024 12:[address] [facility] Urobilinogen, Urine 2.0(A) 0.2 - 1.0 mg/dL LAB URINALYSIS - AUTOMATED METHOD 12/15/2024 12:[address] [facility] Bilirubin, Urine Negative Negative LAB URINALYSIS - AUTOMATED METHOD 12/15/2024 12:[address] [facility] Blood, Urine Negative Negative LAB URINALYSIS - AUTOMATED METHOD 12/15/2024 12:[address] [facility] RBC, Urine 4.8(H) 0 - 4 /HPF LAB URINALYSIS - AUTOMATED METHOD 12/15/2024 12:[address] [facility] WBC, Urine 0.9 0 - 4 /HPF LAB URINALYSIS - AUTOMATED METHOD 12/15/2024 12:[address] [facility] Squamous Epithelial, Urine 15 0 - 60 /LPF LAB URINALYSIS - AUTOMATED METHOD 12/15/2024 12:[address] [facility] Bacteria, Urine Negative Negative /HPF LAB URINALYSIS - AUTOMATED METHOD 12/15/2024 12:12 PM EDT [facility] Hyaline Casts, Urine 0.0 0 - 3 /LPF LAB URINALYSIS - AUTOMATED METHOD 12/15/2024 12:12 PM EDT [facility] Urine Urine specimen from urethra / Unknown Non-blood Collection / Unknown 12/14/2024 1:00 PM EDT 12/15/2024 11:50 AM EDT us Farideh Garcia MD LAB URINE ORDERABLES Final Resul t [facility] [address] [place] [address], * (ABNORMAL) Culture urine (12/14/2024 1:00 PM EDT) Culture, Urine 10,000-49,000 CFU/mL Proteus mirabilis(A) SHANIA 12/19/2024 8:39 AM EDT [facility] Comment: Edited result: Previously reported as Proteus species on 12/18/2024 at 1125 EDT. Culture, Urine 10,000-49,000 CFU/mL Morganella morganii ssp morganii(A) SHANIA 12/19/2024 8:39 AM EDT [facility] Comment: The organism value for [...] ug/ml: Susceptible Morganella morganii ssp morganii Levofloxacin SHANIA <=0.12 ug/ml: Susceptible Morganella morganii ssp morganii Nitrofurantoin SHANIA 128 ug/ml: Resistant Morganella morganii ssp morganii Trimethoprim/Sulfamethoxazo le SHANIA <=20 ug/ml: Susceptible us Farideh Garcia MD LAB MICROBIOLOGY - GENERAL ORDER ITZEL Final Result [facility] [address] [place] [address], documented in this encounter Visit Diagnoses Diagnosis Frequency of micturition Urinary frequency documented in this encounter Care Teams Data Reduction Technician Relationship Specialty Start Date End Date Farideh Garcia MD [address] [place] [address] [address] [place] [address] PCP - General Geriatric Medicine 09/16/24 documented as of this encounter
--- NOTE | 2024-12-31 13:36 | A.SPINEOV_ITS ---
Intake Visit Reasons: post op Intake Note: Mr. Mcnulty is here today for his 1st post op. Oiler Helper Required: Yes Oiler Helper Name: Parmjit (Daughter) Allergies Penicillins Allergy (Severe, Verified 12/31/24 13:39) Rash tramadol Allergy (Unknown, Verified 12/31/24 13:39) inadequate response Assessment & Plan Assessment & Plan (1) S/P cervical spinal fusion: Code(s): Z98.1 - Arthrodesis status Category: Surgical Plan HPI: Jose comes in today for his 1st postoperative visit after having C4-[address] Jones on 12/11/24. 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 We saw him acutely after surgery in clinic to address this. See previous office note for specifics regarding this. He presents today to clinic for a subsequent follow up. He is accompanied by his daughter who works as a respiratory therapist at [employer]. She helps to provide some of the patients recent history. She states that she feels like he continues to functionally decline, and has worsened strength in his right upper extremity compared to pre-operatively. Exam during last visit: Jose has about 4/5 strength with right sided triceps testing. He is at lest 3/5 antigravity on interossei testing / hand karate black belt / wrist extension/flexion. His biceps strength I would rate it about 1/5, as there is a flicker of movement but no meaningful antigravity strength or ROM, his deltoid strength I would rate at a 0/5 with no meaningful engagement of strength. His sensation to light touch is slightly diminished on the right side compared to the left, but this he reports is nearly negligible. Exam today: The patient has about 3/5 strength with right sided triceps testing on exam today. He continues to remain 3/5 antigravity on interossei testing / hand karate black belt / wrist extension/flexion. His biceps strength remains at about 1/5. He has continued 0/5 deltoid strength. His sensation to light touch continues to be diminished on the right side compared to the left, but this he reports is nearly negligible during exam. Plan: The patient appears to have a worsening strength examination overall when compared to pre-operative testing. His triceps testing in clinic today appears weaker than previously noted. He was examined by the attending neurosurgeon today, Dr. Jones who recommended the patient have a repeat cervical MRI to evaluate for any new or worsening nerve root impingement since surgery. Dr. Jones will follow up with the patient and his daughter via telehealth video call when the MRI report is available from radiology. Orders: Orders MR cervical spine wo con 12/31/24 Z98.1 - Arthrodesis status Coding Level of Care Code Global (75397) Diagnoses S/P cervical spinal fusion Z98.1
== END 2024-12-31 14:46 | disposition home or self-care (01) ==
LOC: HO.HNS 12:58
PROVIDERS: PCP Emergency Medicine; Visit Provider Physician Assistant
DX: Z98.1 Arthrodesis status (principal)
CPT/HCPCS: 99024

== ENCOUNTER → 2024-12-31 12:57 | Outpatient (BNVA) | payer MEDICARE, MEDICAID, SELFPAY | PROVIDERS: PCP Emergency Medicine; Visit Provider Physician Assistant | DX: Z48.89 Encounter for other specified surgical aftercare (principal); Z98.1 Arthrodesis status | CPT/HCPCS: 99212 ==

== ENCOUNTER 2025-01-16 13:31 | Outpatient (AMB) | payer MEDICARE, MEDICAID, SELFPAY ==
--- NOTE | 2025-01-16 13:35 | A.SPINEOV_ITS ---
Intake Visit Reasons: MRI & possible subsequent surgery Intake Note: Mr. Mcnulty is going to be on the phone for a televisit. He wants to Discuss the results to his MRI and Possible subsequent surgery. Department Coordinator Required: No Allergies Penicillins Allergy (Severe, Verified 01/16/25 13:37) Rash tramadol Allergy (Unknown, Verified 01/16/25 13:37) inadequate response Assessment & Plan Assessment & Plan (1) S/P cervical spinal fusion: Code(s): Z98.1 - Arthrodesis status Category: Medical Plan Dear colleague, On 01/16/2025 I had a telephone encounter to discuss his current neurological status, MRI results and possible treatment. 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 Postoperatively, he complained of increased weakness especially of the proximal deltoid on the right side. This deficit did not improve and therefore we repeated MRI of the cervical spine. 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 On further questioning, he states that the left side is further decreasing in function with more weakness and numbness. Therefore I am inclined to offer him a C4-C5 laminectomy to make sure that the spinal cord has maximum room for recovery. I explained that the weakness of the right upper extremity may also be due to dysfunction of the C5 nerve root. This is an uncommon but well known postoperative sequela associated with an anterior diskectomy and fusion. Usually this recovers over time. But again, he mentioned that he has also further deteriorating neurologically on the left side and therefore in my opinion the best option would be to decompress the spinal cord posteriorly. He will let me know if he wants to proceed. Mayclo Jones MD, PhD Spine Fellowship Trained Neurosurgeon Director, [facility] Coding Level of Care Code Global (52417) Diagnoses S/P cervical spinal fusion Z98.1
--- OUTSIDE RECORDS SUMMARY | 2025-01-16 13:43 | XMS_ITS | Encounter Summary ---
Author Organization [facility] Address [address] [place] [address] Care Team Providers Care Silverware Assembler Name Role Phone Farideh Garcia MD Primary Care Provider Encounter Details Date Type Department Care Team (Late st Contact Info) Description 12/15/2024 Lab Requisition [facility] - Main Lab [address] [facility] [place] [address] Farideh Garcia MD [address] [place] [address] Frequency of micturition Social History Tobacco Use [...] reflex microscopic (12/14/2024 1:00 PM EDT) Specific [place] Urine 1.020 1.003 - 1.030 LAB URINALYSIS - AUTOMATED METHOD 12/15/2024 12:12 PM EDT [facility] pH, Urine 8.0 5.0 - [...] 12:12 PM [facility] Bilirubin, Urine Negative Negative LAB URINALYSIS - AUTOMATED METHOD 12/15/2024 12:12 PM [facility] Blood, Urine [...] - AUTOMATED METHOD 12/15/2024 12:12 PM EDT [facility] Hyaline Casts, Urine 0.0 0 - 3 /LPF LAB URINALYSIS - AUTOMATED METHOD 12/15/2024 12:12 PM EDT [facility] Urine Urine specimen from urethra / Unknown Non-blood Collection / Unknown 12/14/2024 1:00 PM EDT 12/15/2024 11:50 AM EDT us Farideh Garcia MD LAB URINE ORDERABLES Final Resul t [facility] [address] [place] [address], * (ABNORMAL) Culture urine (12/14/2024 1:00 PM EDT) Culture, Urine 10,000-49,000 CFU/mL Proteus mirabilis(A) SHANIA 12/19/2024 8:39 AM EDT [facility] Comment: Edited result: Previously reported as Proteus species on 12/18/2024 at 1125 EDT. Culture, Urine 10,000-49,000 CFU/mL Morganella morganii ssp morganii(A) SHANIA 12/19/2024 8:39 AM EDT [facility] Comment: The organism value for [...] MICROBIOLOGY - GENERAL ORDER ITZEL Final Result [facility] [address] [place] [address], documented in this encounter Visit Diagnoses Diagnosis Frequency of micturition Urinary frequency documented in this encounter Care Teams Silverware Assembler Relationship Specialty Start Date End Date Farideh Garcia MD [address] [place] [address] [address] [place] [address] PCP - General Geriatric Medicine 09/16/24 documented as of this encounter
== END 2025-01-16 15:25 | disposition home or self-care (01) ==
PROVIDERS: PCP Emergency Medicine; Visit Provider Neurological Surgery
DX: Z98.1 Arthrodesis status (principal)
CPT/HCPCS: 99024

== ENCOUNTER → 2025-01-16 13:31 | Outpatient (BNVA) | payer MEDICARE, MEDICAID, SELFPAY | PROVIDERS: PCP Emergency Medicine; Visit Provider Neurological Surgery | DX: Z98.1 Arthrodesis status (principal) | CPT/HCPCS: 99212 ==

== ENCOUNTER 2025-03-10 14:52 | Outpatient (AMB) | payer MEDICARE, MEDICAID, SELFPAY ==
--- NOTE | 2025-03-10 15:00 | MHC.OFFVIS ---
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 Allergies Penicillins Allergy (Severe, Verified 03/10/25 21:20) Rash tramadol Allergy (Unknown, Verified 03/10/25 21:20) inadequate response Medication List - Last Reconciled 03/10/25 by MAILE Mckeon-ALEJANDRA acetaminophen 975 mg (3 x 325 mg) PO TID baclofen 20 mg PO TID PRN 90 days bisacodyl 10 mg MA DAILY PRN 30 days chlorhexidine gluconate 0.12% (Periogard) 15 mL buccal DAILY diclofenac sodium 1% 4 grams topical QID docusate sodium (Colace) 200 mg (2 x 100 mg) PO BID duloxetine 30 mg PO BID 30 days finasteride 5 mg PO BEDTIME 90 days fluticasone propionate 50 mcg/actuation sprays intranasal guaifenesin 400 mg PO Q6H PRN magnesium oxide 400 mg PO DAILY 90 days mirtazapine 7.5 mg (1/2 x 15 mg) PO BEDTIME omeprazole 20 mg PO DAILY 90 days oxycodone 5 mg PO Q8H PRN 30 days sennosides (senna) 8.6 mg PO BEDTIME sulfamethoxazole-trimethoprim 800-160 mg (Bactrim DS) 1 tab PO BID 14 days terazosin 8 mg PO BEDTIME HPI Comments Details: Jose is a pleasant 74 year old Swedish-speaking male patient Dr. Mendez who was accompanied by two of his staff members at today's office visit. 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 He presents to the office today for a follow up of his elevated PSA and lower urinary tract symptoms. In discussion with the patient today he reports since his last office visit here he has since moved from [facility] where he was residing to a jail and now is under the care of [facility]. He is accompanied by 2 [employer] employees during today's office visit. Of note, patient was seen approximately 3 months ago at which time a urine culture and PSA were ordered for further assessment evaluation. These results were reviewed and communicated with the patient today. Urine culture 12/11 Proteus mirabilis and Morganella morganii. PSAs are as follows: PSAs: 01/09 5.1, 03/11 5.5, 06/11 3.7 PSA free 19%, 10/13 2.7, 06/12 2.2, 12/12 5.5 When asked he does report compliance and finasteride and terazosin as prescribed. He does report intermittent episodes of dysuria. We did discuss increase in PSA in relation to potential urinary tract infection. We discussed potential causes of elevated PSA and further treatment options and risks and benefits of these treatment options. SELENA was offered however deferred. Unable to obtain urine for urinalysis today however PVR 1 mL. Previous workup has included a retroperitoneal ultrasound 03/11 noting bilateral kidneys with no calculi, lesions, and or hydronephrosis noted. The bladder is partially distended. There is notable focal thickening along the posterior wall of the bladder. The prostate gland is enlarged measuring approximately 55 mL. He discusses his ongoing issues with arthritis and fibromyalgia. He reports having had recent surgical procedure and has since been experiencing decreased mobility to right upper extremity. He reports feeling surgical procedure was not helpful. When asked he denies urinary urgency, urinary frequency, incontinence, nocturia, hematuria, foul smelling urine, changes to urinary stream, flank pain, fever, and or chills. Patient otherwise denies any issues or concerns at this time. [facility] Medical History Hx of varicose veins Depression COVID-19 Numbness HTN (hypertension) Spastic hemiparesis of left dominant side Spastic hemiplegia affecting right dominant side Spastic hemiparesis affecting dominant side Contracture, left hand Bilateral knee contractures Elevated PSA Moderate major depression Insomnia Fibromyalgia GERD (gastroesophageal reflux disease) Hypovitaminosis D Lumbar degenerative disc disease Surgical History Hx of varicose vein ligation and stripping History of prostate surgery History of shoulder surgery History of laminectomy Family History Father Diabetes Hypertension Liver cancer Mother Diabetes Hypertension Stroke Other Substance use disorder Social History Housing: House Are you a primary career services representative to a significant other at home: No Do you presently have visiting nurse or other home services: No Alcohol intake: former Patient Tobacco Use Status: Former Tobacco user Cigarettes Per Day: 3 e-Cigarette/Vaping Use: Never Used Second Hand Smoke Exposure: No Advance Directives Date on File: 09/06/22 service: No Current occupational status: disabled Cognitive needs: Yes (cane) Hearing needs: No Vision needs: Yes (reading glasses) Review of Systems Const Reports as per [facility] Eyes Reports no additional complaints ENT Reports no additional complaints Card Reports as per HPI Resp Reports no additional complaints GI Reports as per [facility] Reports as per [facility] Musc Reports as per [facility] Neuro Reports as per [facility] Psych Reports as per [facility] Endo Reports no additional complaints Seven/Lymph Reports no additional complaints Physical Exam Const General: cooperative, comfortable, no acute distress, well developed, alert and awake Orientation/consciousness: patient oriented x3 Limitations: wheelchair HEENT Head: Yes normal to inspection, Yes normocephalic and Yes atraumatic Ears: hearing grossly normal bilaterally Eyes General: appearance normal, both eyes and all related structures Neck Neck: Yes normal visual inspection and Yes trachea midline Chest Chest palpation & inspection: normal inspection of the chest Resp Effort & Inspection: normal respiratory effort and able to speak in complete sentences Cardio Rate: regular rate GI Inspection: Yes normal to inspection General: Yes no CVA tenderness Back/Spine/Pelvis Back: no CVA tenderness Skin General skin exam: no rashes or lesions noted Neuro General: patient oriented x3 Extrem General: Yes normal to inspection Psych Appearance: grossly normal and well kempt Mental Status: mental status grossly normal Speech and movement: Normal speech and movement present and Clear speech present Affect: normal affect Attitude: cooperative Thought process: Normal thought process present Thought content: Normal thought content present Insight: Fair insight present (Psych) Judgement: Fair judgement present (Psych) Office Procedures Post Void Residual Post Residual Void Post Void Residual (PVR): 0 [id number] Void Residual by ultrasound Assessment & Plan Assessment & Plan (1) Elevated PSA: Code(s): R97.20 - Elevated prostate specific antigen [PSA] Category: Medical (2) Enlarged prostate with lower urinary tract symptoms (LUTS): Code(s): N40.1 - Benign prostatic hyperplasia with lower urinary tract symptoms Category: Medical (3) Urinary tract infection: Code(s): N39.0 - Urinary tract infection, site not specified Category: Medical (4) Dysuria: Code(s): R30.0 - Dysuria Category: Medical Plan Unable to obtain urine for urinalysis however PVR 1 mL. Most recent urine culture and PSA results were reviewed with the patient today; as noted above. We did discussed potential causes of elevated PSA as well as further treatment options and risks and benefits of these treatment options. We discuss treatment of UTI given patient continues to experience dysuria with positive urine culture results. Start Bactrim as discussed and prescribed. Continue finasteride and terazosin as prescribed. All questions were answered. We discussed importance of obtaining PSA 4-6 weeks status post completion of antibiotic therapy. Follow-up in 2-3 months with PSA to be completed prior; or sooner with any issues, concerns, and or questions. Orders: Orders PSA,Total (Free>4and<10) Today R97.20 - Elevated prostate specific antigen [PSA] AMB Post Void Residual by ultrasound Today N40.1 - Benign prostatic hyperplasia with lower urinary tract symptoms Medications: New sulfamethoxazole-trimethoprim 800-160 mg (Bactrim DS) 1 tab PO BID 28 tabs 0RF 14 days N39.0 - Urinary tract infection, site not specified Patient Instructions: The patient had an opportunity to ask questions regarding the treatment plan. All questions were answered. Physical exam, labs, and imaging were discussed and reviewed in detail. As well as risks, benefits, and discussion of treatment choices. No major barriers to understanding were identified. The patient expressed understanding and agreement with the above treatment plan. The patient was made aware they should contact our office by phone for worsening of their current condition, the appearance of new symptoms, or with any questions or concerns. Compliance is encouraged with any medications and follow up testing that is ordered. It is a privilege to be allowed the opportunity to participate in? your urological care.? Again, if you have any questions or concerns If you have any questions or concerns please do not hesitate to contact me. The office is [phone]. This note is constructed using voice recognition software. While every effort has been made to ensure accuracy division road supervisor errors may have been included. Yours sincerely, NEW Mckeon Coding Level of Care Code Est Pt Level 4 (39779) Complex EM visit Add On G2211 Diagnoses Elevated PSA R97.20 Enlarged prostate with lower urinary tract symptoms (LUTS) N40.1 Urinary tract infection N39.0 Dysuria R30.0 CPT Codes Post Residual Void - PVR CPT Code: 88741-[id number] Void Residual by ultrasound ([id number])
--- OUTSIDE RECORDS SUMMARY | 2025-03-10 15:58 | XMS_ITS | Encounter Summary ---
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 - Main Lab [address] [facility] [place] [address] Farideh Garcia MD [address] [place] [address] Frequency of micturition Social History Tobacco Use [...] reflex microscopic (12/14/2024 1:00 PM EDT) Specific [place] Urine 1.020 1.003 - 1.030 LAB URINALYSIS - AUTOMATED METHOD 12/15/2024 12:12 PM EDT [facility] pH, Urine 8.0 5.0 - 8.0 pH LAB URINALYSIS - AUTOMATED METHOD 12/15/2024 12:12 PM [facility] Leukocytes, Urine Trace(A) Negative LAB URINALYSIS - AUTOMATED METHOD 12/15/2024 12:12 PM [facility] Nitrite, Urine Negative Negative LAB URINALYSIS - AUTOMATED METHOD 12/15/2024 12:12 PM [facility] Protein, Urine Trace <=Trace mg/dL LAB URINALYSIS - AUTOMATED METHOD 12/15/2024 12:12 PM [facility] Glucose, Urine Negative Negative mg/dL LAB URINALYSIS - AUTOMATED METHOD 12/15/2024 12:12 PM [facility] Ketones, Urine Trace(A) Negative mg/dL LAB URINALYSIS - AUTOMATED METHOD 12/15/2024 12:12 PM [facility] Urobilinogen, Urine 2.0(A) 0.2 - 1.0 mg/dL LAB URINALYSIS - AUTOMATED METHOD 12/15/2024 12:12 PM [facility] Bilirubin, Urine Negative Negative LAB URINALYSIS - AUTOMATED METHOD 12/15/2024 12:12 PM [facility] Blood, Urine Negative Negative LAB URINALYSIS - AUTOMATED METHOD 12/15/2024 12:12 PM [facility] RBC, Urine 4.8(H) 0 - 4 /HPF LAB URINALYSIS - AUTOMATED METHOD 12/15/2024 12:12 PM [facility] WBC, Urine 0.9 0 - 4 /HPF LAB URINALYSIS - AUTOMATED METHOD 12/15/2024 12:12 PM [facility] Squamous Epithelial, Urine 15 0 - 60 /LPF LAB URINALYSIS - AUTOMATED METHOD 12/15/2024 12:12 PM [facility] Bacteria, Urine Negative Negative /HPF LAB URINALYSIS - AUTOMATED METHOD 12/15/2024 12:12 PM EDT [facility] Hyaline Casts, Urine 0.0 0 - 3 /LPF LAB URINALYSIS - AUTOMATED METHOD 12/15/2024 12:12 PM EDT [facility] Urine Urine specimen from urethra / Unknown Non-blood Collection / Unknown 12/14/2024 1:00 PM EDT 12/15/2024 11:50 AM EDT us Farideh Garcia MD LAB URINE ORDERABLES Final Resul t [facility] [address] [place] [address], * (ABNORMAL) Culture urine (12/14/2024 1:00 PM EDT) Culture, Urine 10,000-49,000 CFU/mL Proteus mirabilis(A) SHANIA 12/19/2024 8:39 AM EDT [facility] Comment: Edited result: Previously reported as Proteus species on 12/18/2024 at 1125 EDT. Culture, Urine 10,000-49,000 CFU/mL Morganella morganii ssp morganii(A) SHANIA 12/19/2024 8:39 AM EDT [facility] Comment: The organism value for [...] MICROBIOLOGY - GENERAL ORDER ITZEL Final Result [facility] [address] [place] [address], documented in this encounter Visit Diagnoses Diagnosis Frequency of micturition Urinary frequency documented in this encounter Care Teams Meat Press Operator Relationship Specialty Start Date End Date Farideh Garcia MD [address] [place] [address] [address] [place] [address] PCP - General Geriatric Medicine 09/16/24 documented as of this encounter
== END 2025-03-10 15:37 | disposition home or self-care (01) ==
PROVIDERS: PCP Internal Medicine; Visit Provider Nurse Practitioner Family
DX: R97.20 Elevated prostate specific antigen [PSA] (principal); N40.1 Benign prostatic hyperplasia with lower urinary tract symptoms; N39.0 Urinary tract infection, site not specified; R30.0 Dysuria
CPT/HCPCS: 99214; G2211

== ENCOUNTER → 2025-03-10 14:52 | Outpatient (BNVA) | payer MEDICARE, MEDICAID, SELFPAY | PROVIDERS: PCP Internal Medicine; Visit Provider Nurse Practitioner Family | DX: R97.20 Elevated prostate specific antigen [PSA] (principal); N40.1 Benign prostatic hyperplasia with lower urinary tract symptoms; R30.0 Dysuria; N39.0 Urinary tract infection, site not specified | CPT/HCPCS: 51798; 99212 ==

== ENCOUNTER 2025-04-01 13:33 | Outpatient (AMB) | payer MEDICARE, MEDICAID, SELFPAY ==
--- NOTE | 2025-04-01 13:41 | MHC.PC.OV ---
Vital Signs 04/01/25 13:42 Height 5 ft 6 in BMI Reason not done Patient refused/unable BP 100/56 L Blood Pressure Location Lt brachial Position Sitting Respiration 18 Pulse 71 Pulse Source Pulse Oximeter Pulse Oximetry (%) 93 Oxygen Delivery Method Room Air Intake Visit Reasons: cva [employer] Machine Operator Required: No Accompanied by: staff Allergies Penicillins Allergy (Severe, Verified 04/01/25 14:21) Rash tramadol Allergy (Unknown, Verified 04/01/25 14:21) inadequate response Medication List - Last Reconciled 04/01/25 by Leora Mendez MD acetaminophen 975 mg (3 x 325 mg) PO TID baclofen 20 mg PO TID PRN 90 days bisacodyl 10 mg [place] DAILY PRN 30 days chlorhexidine gluconate 0.12% (Periogard) 15 mL buccal DAILY diclofenac sodium 1% 4 grams topical QID docusate sodium (Colace) 200 mg (2 x 100 mg) PO BID duloxetine 30 mg PO BID 30 days finasteride 5 mg PO BEDTIME 90 days fluticasone propionate 50 mcg/actuation sprays intranasal guaifenesin 400 mg PO Q6H PRN magnesium oxide 400 mg PO DAILY 90 days mirtazapine 7.5 mg (1/2 x 15 mg) PO BEDTIME omeprazole 20 mg PO DAILY 90 days oxycodone 5 mg PO Q8H PRN 30 days sennosides (senna) 8.6 mg PO BEDTIME sulfamethoxazole-trimethoprim 800-160 mg (Bactrim DS) 1 tab PO BID 14 days terazosin 8 mg PO BEDTIME Tobacco use date assessed: 04/01/25 Fall risk assessment: 2 + Falls in past year Last assessed Fall Risk: 04/01/25 Dental Screening Dental Screen Date: 04/01/25 Did you have a dental visit in the last 12 months?: Yes Did you have a dental problem in the last 6 months where you did not have access to dental care?: No Was dental information given to patient?: Patient has dentist HPI HPI Comments History of Present Illness Details The patient is a 74-year-old male presenting with the management of multiple chronic conditions, including hypertension, arthritis, and muscle spasms. Hypertension has been well-controlled with a recent blood pressure reading of 100/56 mmHg. The patient has a known allergy to penicillin and tramadol, which has been documented in his medical history. The patient experiences muscle spasms, particularly in the neck region, which have been persistent and are managed with baclofen. He reports that the spasms are painful and occur frequently, impacting his daily activities. He did had neck surgery this year and as per patient he feels that his hands has worsened. They are both closed and not able to open on its own. I recommend to contact Neurosurgery for re-evaluation. Arthritis in the neck has been confirmed through imaging, showing significant degeneration and narrowing of the spinal canal. This condition contributes to the patient's chronic pain and requires ongoing management. The patient has a history of a stomach ulcer, which recently burst, leading to an emergency room visit. He was advised to follow up with a information technology internship for further evaluation and management. He was hospitalized in [facility] last week and a CT scan of the abdomen showed a right adrenal nodule and a right renal lesion in which he will be referred to Endocrinology and to Nephrology for this matter. [facility] Medical History (Updated 04/01/25 @ 20:55 by Leora Mendez MD) Hx of varicose veins Depression COVID-19 Numbness HTN (hypertension) Spastic hemiparesis of left dominant side Spastic hemiplegia affecting right dominant side Spastic hemiparesis affecting dominant side Contracture, left hand Bilateral knee contractures Elevated PSA Moderate major depression Insomnia Fibromyalgia GERD (gastroesophageal reflux disease) Hypovitaminosis D Lumbar degenerative disc disease Surgical History Hx of varicose vein ligation and stripping History of prostate surgery History of shoulder surgery History of laminectomy Family History Father Diabetes Hypertension Liver cancer Mother Diabetes Hypertension Stroke Other Substance use disorder Social History Housing: House Are you a primary youth career specialist to a significant other at home: No Do you presently have visiting nurse or other home services: No Alcohol intake: former Patient Tobacco Use Status: Former Tobacco user Cigarettes Per Day: 3 e-Cigarette/Vaping Use: Never Used Second Hand Smoke Exposure: No Advance Directives Date on File: 09/06/22 service: No Current occupational status: disabled Cognitive needs: Yes (cane) Hearing needs: No Vision needs: Yes (reading glasses) Questionnaire PHQ-9 Over the last 2 weeks, how often have you been bothered by any of the following problems? 1. Little interest or pleasure in doing things: not at all 2. Feeling down, depressed, or hopeless: not at all 3. Trouble falling or staying asleep, or sleeping too much: nearly every day 4. Feeling tired or having little energy: nearly every day 5. Poor appetite or overeating: nearly every day 6. Feeling bad about yourself - or that you are a failure or have let yourself or your family down: several days 7. Trouble concentrating on things, such as reading the newspaper or watching television: not at all 8. Moving or speaking so slowly that other people could have noticed. Or the opposite - being so fidgety or restless that you have been moving around a lot more than usual: not at all 9. Thoughts that you would be better off or of hurting yourself in some way: not at all Total score: 10 Depression Screening Interpretation: Positive Depression Screening Follow-up: Existing condition and Follow-up Visit Requested Depression Screening Done: Yes 01209 - PHQ-9 Billing: Yes Source: Developed by Drs. Marek Sutton, Jaylyn Clark, Brennon Dockery and colleagues, with an educational adams from [email or web address]. Thrive Questionnaire Date Thrive assessed: 04/01/25 I am a: Parent/Caregiver What is your living situation today?: I have a steady place to live Within the past 12 months, did the food you bought not last and you didn't have the money to get more?: Never true Within the past 12 months, did you worry whether your food would run out before you got money to buy more?: Never true Do you have trouble paying for medicines?: No Do you have trouble getting transportation to medical appointments?: No Do you have trouble paying your heating and electricity bill?: No Do you have trouble taking care of your child, family member or friend?: No Do you have trouble with day-to-day activities such as bathing, preparing meals, shopping, managing finances, etc.?: Yes Are you currently unemployed and looking for a job?: Yes Are you interested in more education?: No Please select the resources that you would like help with: None Currently or been in a relationship where the following occur: I choose not to answer THRIVE Score: 0 AUDIT C Alcohol Use Questionnaire (AUDIT-C) 1. How often do you have a drink containing alcohol?: Never 3. How often do you have six or more drinks on one occasion?: Never Total Score: 0 Score Reviewed/Action Taken: No FARHAT-7 AMB Questionnaire FARHAT-7 Date FARHAT - 7 assessed: 04/01/25 Feeling nervous, anxious, or on edge: 0 = Not at all Not being able to stop or control worryin = Not at all Worrying too much about different things: 0 = Not at all Trouble relaxin = Not at all Being so restless that it is hard to sit still: 0 = Not at all Becoming easily annoyed or irritable: 0 = Not at all Feeling afraid as if something awful might happen: 0 = Not at all Total FARHAT-7 score (0-4 normal; 5-9 mild; 10-14 moderate; 15-21 severe): 0 Source: Developed by Drs. Marek Sutton, Jaylyn Clark, Brennon Dockery and colleagues, with an educational adams from [email or web address]. FARHAT-7 Assessment Billing FARHAT-7 Assessment Tool: FARHAT-7 Assessment 74365 Review of Systems Const All systems reviewed & are unremarkable except as noted in HPI and below Card Denies chest pain at rest, Denies chest pain with activity, Denies edema, Denies irregular heart rhythm, Denies claudication, Denies dyspnea, Denies dyspnea on exertion, Denies orthopnea, Denies paroxysmal nocturnal dyspnea and Denies slow heart rate Resp Denies cough, Denies dyspnea and Denies dyspnea on exertion GI Denies abdominal pain, Denies change in bowel habits, Denies excessive flatus, Denies nausea and Denies vomiting Denies urinary hesitancy, Denies urinary incontinence and Denies urinary urgency Musc Denies atrophy, Denies deformity and Denies limited range of motion Physical exam (Primary Care) Vital Signs: Last Vital Signs Pulse 71 04/01/25 13:42 Resp 18 04/01/25 13:42 BP 100/56 L 04/01/25 13:42 Pulse Ox 93 04/01/25 13:42 Oxygen Delivery Method Room Air 04/01/25 13:42 Tobacco/Smoking Status: Tobacco use Status Tobacco use date assessed 04/01/25 04/01/25 13:43 Patient Tobacco Use Status Former Tobacco user 04/01/25 13:43 e-Cigarette/Vaping Use Never Used 04/01/25 13:43 PHQ-9: PHQ-9 Score PHQ-9: Total score 10 04/01/25 14:24 Depression Screening Interpretation: Positive Depression Screening Follow-up: Existing condition and Follow-up Visit Requested Thrive Assessment: Date of Thrive Assessment Date Thrive assessed 04/01/25 04/01/25 13:43 Currently or been in a relationship where the following occur: I choose not to answer Const Limitations: wheelchair Resp Effort & Inspection: normal respiratory effort Auscultation: clear to auscultation bilaterally Cardio Jugular venous distension: no JVD Rate: regular rate Rhythm: regular rhythm Heart sounds: S1 normal heart sound present and S2 normal heart sound present Neuro Motor exam (neuro): Abnormal motor strength present (hemiparesis of right side) Extrem Other: Not able to open both hands Coding Level of Care Code Est Pt Level 4 (46789) Complex EM visit Add On G2211 Diagnoses Upper GI bleeding K92.2 Mild recurrent major depression F33.0 Adrenal nodule E27.9 Renal lesion N28.9 Stroke I63.9 Spastic hemiparesis affecting dominant side G81.10 Cervical spinal stenosis M48.02 Additional Codes FARHAT-7 Assessment Billing - FARHAT-7 Assessment Tool: FARHAT-7 Assessment 59842 ([id number]) PHQ-9 - 42570 - PHQ-9 Billing: Yes ([id number]) Time Spent (min) 25 Assessment & Plan Assessment & Plan (1) Upper GI bleeding: Code(s): K92.2 - Gastrointestinal hemorrhage, unspecified Category: Medical (2) Mild recurrent major depression: Code(s): F33.0 - Major depressive disorder, recurrent, mild Category: Medical (3) Adrenal nodule: Code(s): E27.9 - Disorder of adrenal gland, unspecified Category: Medical (4) Renal lesion: Code(s): N28.9 - Disorder of kidney and ureter, unspecified Category: Medical (5) Stroke: Code(s): I63.9 - Cerebral infarction, unspecified Category: Medical (6) Spastic hemiparesis affecting dominant side: Code(s): G81.10 - Spastic hemiplegia affecting unspecified side Category: Medical (7) Cervical spinal stenosis: Code(s): M48.02 - Spinal stenosis, cervical region Category: Medical Plan The management plan for hypertension includes continuing current medications as the blood pressure is well-controlled. For muscle spasms, the patient is advised to continue baclofen, with adjustments made to ensure optimal dosing for pain management. The patient should monitor for any changes in symptoms and report them promptly. Arthritis in the neck requires ongoing management, and the patient is advised to follow up with a specialist for potential surgical intervention if symptoms worsen. The patient is advised to follow up with a information technology internship for further evaluation of the stomach ulcer and to manage any potential complications. Patient was informed and verbally consented to the use of an ambient scribe for clinic note documentation during this visit. Orders: Referrals Nephrology Referral N28.9 - Disorder of kidney and ureter, unspecified Gastroenterology Referral K92.2 - Gastrointestinal hemorrhage, unspecified Endocrinology Referral E27.9 - Disorder of adrenal gland, unspecified Medications: New acetaminophen 1,000 mg (2 x 500 mg) PO TID 180 tabs 11RF pain 30 days Discontinued bisacodyl Discontinued Reason: Patient Completed Course 10 mg [place] DAILY 30 days PRN 30 ea 2RF Constipation acetaminophen Discontinued Reason: Patient Completed Course 975 mg (3 x 325 mg) PO TID 270 tabs 0RF
[2025-04-01 13:42] VITALS: BP 100/56; PULSE 71; RESP 18; O2SAT 93
--- OUTSIDE RECORDS SUMMARY | 2025-04-01 14:02 | XMS_ITS | Encounter Summary ---
Author Organization [facility] Address [address] [place] [address] Care Team Providers Care Lens Coater Name Role Phone Farideh Garcia MD Primary Care Provider [phone] Encounter Details Date Type Department Care Team (Late st Contact Info) Description 12/15/2024 Lab Requisition [facility] - Main Lab [address] [facility] [place] [address] Farideh Garcia MD [address] [place] [address] Frequency of micturition Social History Tobacco Use [...] reflex microscopic (12/14/2024 1:00 PM EDT) Specific [place] Urine 1.020 1.003 - 1.030 LAB URINALYSIS - AUTOMATED METHOD 12/15/2024 12:12 PM EDT [facility] pH, Urine 8.0 5.0 [...] - AUTOMATED METHOD 12/15/2024 12:12 PM EDT [facility] Hyaline Casts, Urine 0.0 0 - 3 /LPF LAB URINALYSIS - AUTOMATED METHOD 12/15/2024 12:12 PM EDT [facility] Urine Urine specimen from urethra / Unknown Non-blood Collection / Unknown 12/14/2024 1:00 PM EDT 12/15/2024 11:50 AM EDT us Farideh Garcia MD LAB URINE ORDERABLES Final Resul t [facility] [address] [place] [address], * (ABNORMAL) Culture urine (12/14/2024 1:00 PM EDT) Culture, Urine 10,000-49,000 CFU/mL Proteus mirabilis(A) SHANIA 12/19/2024 8:39 AM EDT [facility] Comment: Edited result: Previously reported as Proteus species on 12/18/2024 at 1125 EDT. Culture, Urine 10,000-49,000 CFU/mL Morganella morganii ssp morganii(A) SHANIA 12/19/2024 8:39 AM EDT [facility] Comment: The organism value for this [...] MICROBIOLOGY - GENERAL ORDER ITZEL Final Result [facility] [address] [place] [address], documented in this encounter Visit Diagnoses Diagnosis Frequency of micturition Urinary frequency documented in this encounter Care Teams Lens Coater Relationship Specialty Start Date End Date Farideh Garcia MD [address] [place] [address] [address] [place] [address] PCP - General Geriatric Medicine 09/16/24 documented as of this encounter
== END 2025-04-01 14:50 | disposition home or self-care (01) ==
LOC: HO.HMCH 13:34
PROVIDERS: PCP Internal Medicine; Visit Provider Internal Medicine
DX: K92.2 Gastrointestinal hemorrhage, unspecified (principal); I63.9 Cerebral infarction, unspecified; G81.10 Spastic hemiplegia affecting unspecified side; F33.0 Major depressive disorder, recurrent, mild; E27.9 Disorder of adrenal gland, unspecified; N28.9 Disorder of kidney and ureter, unspecified; M48.02 Spinal stenosis, cervical region

== ENCOUNTER → 2025-04-01 13:33 | Outpatient (BNVA) | payer MEDICARE, MEDICAID, SELFPAY | PROVIDERS: PCP Internal Medicine; Visit Provider Internal Medicine | DX: K92.2 Gastrointestinal hemorrhage, unspecified (principal); F33.0 Major depressive disorder, recurrent, mild; E27.9 Disorder of adrenal gland, unspecified; N28.9 Disorder of kidney and ureter, unspecified; M48.02 Spinal stenosis, cervical region; Z87.891 Personal history of nicotine dependence; Z86.73 Personal history of transient ischemic attack (TIA), and cerebral infarction without residual deficits | CPT/HCPCS: 96127; 99212 ==

== ENCOUNTER 2025-04-06 13:41 | Outpatient (AMB) | payer MEDICARE, MEDICAID, SELFPAY ==
--- NOTE | 2025-04-06 13:43 | A.SPINEOV_ITS ---
Intake Visit Reasons: follow up & surgical discussion Intake Note: Mr. Mcnulty is here today to Discuss Surgery. Rehabilitation Services Counselor Required: Yes Rehabilitation Services Counselor Services: Rehabilitation Services Counselor Present Rehabilitation Services Counselor Name: Ayana Will PEYTON Allergies Penicillins Allergy (Severe, Verified 04/06/25 13:47) Rash tramadol Allergy (Unknown, Verified 04/06/25 13:47) inadequate response Assessment & Plan Assessment & Plan (1) Stroke: Code(s): I63.9 - Cerebral infarction, unspecified Category: Medical (2) Cervical spinal cord compression: Code(s): G95.20 - Unspecified cord compression Category: Medical Plan Mr Mcnulty came back to see us in follow-up. Dr. Jones saw him a few months ago and offered him C4-5 laminectomy in the setting of residual stenosis from posterior ligamentum hypertrophy seen on his imaging done at [facility]. The patient wanted to think about it before proceeding as the original anterior cervical fusion left him with right shoulder weakness. He tells me now with the help of documentation analyst Ayana Simons that he has had a progression of symptoms. His right arm is continued to get worse since the surgery and is almost nonfunctional at this point. By that he means he is unable to do simple things with it like hold a spoon or feed himself, whereas before the surgery he could do things like playing dominoes and eat. Now his left hand and left arm are the dominant 1 and that was previously his dysfunctional side from his old stroke. He also reports numbness of his right hand and numbness of his feet. He is unable to stand and walk but that was his baseline. His right arm has 0/5 in the right deltoid, right biceps, 1 to 2/5 in the right triceps in the right hand. He has a flexion contracture of the right hand. The left arm reveals arthritic contractures and hypertonicity, he is unable to open and close it but can grab things with his fingertips. He also has diffuse weakness on that side I would rate as 4-5. His hip flexor strength is 3/5 in his distal lower extremity strength is 4/5 but this might be effort related. I reviewed his situation with him again and we went over the fact at length that there is still signs of spinal cord compression and that we could offer him C4-5 laminectomy. Because of the diffuse weakness on the right arm developing after he spoke with Dr. Jones, I will get a brain MRI just to exclude a new stroke, but if it does not reveal anything profound that would explain right arm weakness, we will proceed with a C4-5 laminectomy as recommended by Dr. Jones. There have been no major changes to his medication list which he brought with him from his senior living. Total amount of time spent in this visit was 20 minutes in discussion of symptoms, previous cervical MRI imaging results and subsequent plan of care Dong Jones MD,PhD [facility] Orders: Orders MR head/brain wo con Today I63.9 - Cerebral infarction, unspecified Coding Level of Care Code Est Pt Level 3 (17721) Diagnoses Stroke I63.9 Cervical spinal cord compression G95.20
--- OUTSIDE RECORDS SUMMARY | 2025-04-06 14:34 | XMS_ITS | Encounter Summary ---
Author Organization [facility] Address [address] [place] [address] Care Team Providers Care Scoop Filler Name Role Phone Farideh Garcia MD Primary Care Provider [phone] Encounter Details Date Type Department Care Team (Late st Contact Info) Description 12/15/2024 Lab Requisition [facility] - Main Lab [address] [facility] [place] [address] Farideh Garcia MD [address] [place] [address] Frequency of micturition Social History Tobacco Use [...] reflex microscopic (12/14/2024 1:00 PM EDT) Specific [place] Urine 1.020 1.003 - 1.030 LAB URINALYSIS - AUTOMATED METHOD 12/15/2024 12:12 PM EDT [facility] pH, Urine 8.0 5.0 - 8.0 pH LAB URINALYSIS - AUTOMATED METHOD 12/15/2024 12:12 PM [facility] Leukocytes, Urine Trace(A) Negative LAB URINALYSIS - AUTOMATED METHOD 12/15/2024 12:12 PM [facility] Nitrite, Urine Negative Negative LAB URINALYSIS - AUTOMATED METHOD 12/15/2024 12:12 PM [facility] Protein, Urine Trace <=Trace mg/dL LAB URINALYSIS - AUTOMATED METHOD 12/15/2024 12:12 PM [facility] Glucose, Urine Negative Negative mg/dL LAB URINALYSIS - AUTOMATED METHOD 12/15/2024 12:12 PM [facility] Ketones, Urine Trace(A) Negative mg/dL LAB URINALYSIS - AUTOMATED METHOD 12/15/2024 12:12 PM [facility] Urobilinogen, Urine 2.0(A) 0.2 - 1.0 mg/dL LAB URINALYSIS - AUTOMATED METHOD 12/15/2024 12:12 PM [facility] Bilirubin, Urine Negative Negative LAB URINALYSIS - AUTOMATED METHOD 12/15/2024 12:12 PM [facility] Blood, Urine Negative Negative LAB URINALYSIS - AUTOMATED METHOD 12/15/2024 12:12 PM [facility] RBC, Urine 4.8(H) 0 - 4 /HPF LAB URINALYSIS - AUTOMATED METHOD 12/15/2024 12:12 PM [facility] WBC, Urine 0.9 0 - 4 /HPF LAB URINALYSIS - AUTOMATED METHOD 12/15/2024 12:12 PM [facility] Squamous Epithelial, Urine 15 0 - 60 /LPF LAB URINALYSIS - AUTOMATED METHOD 12/15/2024 12:12 PM [facility] Bacteria, Urine Negative Negative [...] Resul t [facility] [address] [place] [address], * (ABNORMAL) Culture urine (12/14/2024 1:00 PM [...] MICROBIOLOGY - GENERAL ORDER ITZEL Final Result [facility] [address] [place] [address], documented in this encounter Visit Diagnoses Diagnosis Frequency of micturition Urinary frequency documented in this encounter Care Teams Scoop Filler Relationship Specialty Start Date End Date Farideh Garcia MD [address] [place] [address] [address] [place] [address] PCP - General Geriatric Medicine 09/16/24 documented as of this encounter
== END 2025-04-06 14:07 | disposition home or self-care (01) ==
LOC: HO.HNS 13:42
PROVIDERS: PCP Internal Medicine; Visit Provider Physician Assistant
DX: I63.9 Cerebral infarction, unspecified (principal); G95.20 Unspecified cord compression
CPT/HCPCS: 99213

== ENCOUNTER → 2025-04-06 13:41 | Outpatient (BNVA) | payer MEDICARE, MEDICAID, SELFPAY | PROVIDERS: PCP Internal Medicine; Visit Provider Physician Assistant | DX: G95.20 Unspecified cord compression (principal); I63.9 Cerebral infarction, unspecified | CPT/HCPCS: 99212 ==

== ENCOUNTER 2025-04-07 15:13 | Outpatient (REF) | payer MEDICARE, MEDICAID, SELFPAY ==
--- OUTSIDE RECORDS SUMMARY | 2025-04-07 16:28 | XMS_ITS | Encounter Summary ---
Author Organization [facility] Address [address] [place] [address] Care Team Providers Care Tobacco Sample Puller Name Role Phone Farideh Garcia MD Primary Care Provider [phone] Encounter Details Date Type Department Care Team (Late st Contact Info) Description 12/15/2024 Lab Requisition [facility] - Main Lab [address] [facility] [place] [address] Farideh Garcia MD [address] [place] [address] Frequency of micturition Social History Tobacco Use [...] reflex microscopic (12/14/2024 1:00 PM EDT) Specific [place] Urine 1.020 1.003 - 1.030 LAB URINALYSIS - AUTOMATED METHOD 12/15/2024 12:12 PM EDT [facility] pH, Urine 8.0 5.0 [...] - AUTOMATED METHOD 12/15/2024 12:12 PM EDT [facility] Hyaline Casts, Urine 0.0 0 - 3 /LPF LAB URINALYSIS - AUTOMATED METHOD 12/15/2024 12:12 PM EDT [facility] Urine Urine specimen from urethra / Unknown Non-blood Collection / Unknown 12/14/2024 1:00 PM EDT 12/15/2024 11:50 AM EDT us Farideh Garcia MD LAB URINE ORDERABLES Final Resul t [facility] [address] [place] [address], * (ABNORMAL) Culture urine (12/14/2024 1:00 PM EDT) Culture, Urine 10,000-49,000 CFU/mL Proteus mirabilis(A) SHANIA 12/19/2024 8:39 AM EDT [facility] Comment: Edited result: Previously reported as Proteus species on 12/18/2024 at 1125 EDT. Culture, Urine 10,000-49,000 CFU/mL Morganella morganii ssp morganii(A) SHANIA 12/19/2024 8:39 AM EDT [facility] Comment: The organism value [...] MICROBIOLOGY - GENERAL ORDER ITZEL Final Result [facility] [address] [place] [address], documented in this encounter Visit Diagnoses Diagnosis Frequency of micturition Urinary frequency documented in this encounter Care Teams Tobacco Sample Puller Relationship Specialty Start Date End Date Farideh Garcia MD [address] [place] [address] [address] [place] [address] PCP - General Geriatric Medicine 09/16/24 documented as of this encounter
== END 2025-04-07 15:14 | disposition home or self-care (01) ==
LOC: HO.MRI 15:13
PROVIDERS: PCP Internal Medicine; Visit Provider Physician Assistant
DX: Z13.89 Encounter for screening for other disorder (principal)

== ENCOUNTER → 2025-04-12 15:21 | Outpatient (BNV) | payer MEDICARE, MEDICAID, SELFPAY | PROVIDERS: PCP Internal Medicine; Visit Provider Radiology Diagnostic Radiology | DX: I63.9 Cerebral infarction, unspecified (principal); G31.09 Other frontotemporal neurocognitive disorder | CPT/HCPCS: 70551 ==

== ENCOUNTER 2025-04-12 15:23 | Outpatient (REF) | payer MEDICARE, MEDICAID, SELFPAY ==
--- NOTE | ~2025-04-12 | MR_ITS ---
EXAMINATION: MR BRAIN WITHOUT CONTRAST CLINICAL INFORMATION: Cerebral infarction, unspecified. I63.9 COMPARISON: Correlated to CT dated September 04, 2022. TECHNIQUE: MRI of the brain was obtained using routine sequences without contrast. FINDINGS: No restricted diffusion. Focal susceptibility signal left frontal white matter. No acute intracranial hemorrhage, mass effect, midline shift, hydrocephalus or herniation. Lateral multifocal patchy deep periventricular white matter hyperintense T2 FLAIR signal involving centrum semiovale and hickey radiata. Prominence of the extra-axial CSF spaces cerebral sulci and ventricles in the bifrontal bitemporal. Flow-void signal within the main cerebral vessels is normal. Sellar/suprasellar region demonstrated no signal abnormality or gross masses. Craniocervical junction demonstrates normal position of the cerebellar tonsils. There is a kyphotic deformity apex at C3-4 and spondylosis C3-4. There is paramagnetic field distortion secondary to hardware at C4-5 no fully included in the fvged-to-prcb. Hyperintense T2 FLAIR signal in the mastoid cells and tympanic cavities. Retention cyst both maxillary sinuses. Mucosal thickening, ethmoid cells.. MR/MR head/brain wo con IMPRESSION: No acute stroke/nonhemorrhagic ischemia. 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 Frontotemporal atrophy. Signal abnormality in the petrous bone. Inflammatory versus infectious process cannot be entirely excluded. Electronically signed by: Kimo Shipman MD 04/13/2025 08:03 AM EDT
== END 2025-04-12 15:24 | disposition home or self-care (01) ==
LOC: HO.MRI 15:23
PROVIDERS: PCP Internal Medicine; Visit Provider Physician Assistant
DX: I63.9 Cerebral infarction, unspecified (principal)
CPT/HCPCS: 70551

== ENCOUNTER 2025-04-23 09:37 | Outpatient (REF) | payer MEDICARE, MEDICAID, SELFPAY ==
[2025-04-23 13:43] LABS: Appearance Urine Turbid; Glucose Urine UA Negative (Negative); PH >= 9.0 (5.0-9.0); Specific Gravity - Urine 1.020 (1.005-1.025); UMIC TRIGGER UA YES
[2025-04-23 14:26] LABS: Other Crystals Urine Present
== END 2025-04-23 09:38 | disposition home or self-care (01) ==
LOC: HO.LNP 09:37
PROVIDERS: PCP Internal Medicine; Visit Provider Internal Medicine Critical Care Medicine
DX: R30.0 Dysuria (principal); N28.9 Disorder of kidney and ureter, unspecified; E27.9 Disorder of adrenal gland, unspecified
CPT/HCPCS: 81001; 87086; 87088; 87186; 99202

== ENCOUNTER 2025-04-23 09:37 | Outpatient (AMB) | payer MEDICARE, MEDICAID, SELFPAY ==
--- NOTE | 2025-04-23 09:39 | HO.NEPHOV ---
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 [facility] Medical History Hx of varicose veins Depression COVID-19 Numbness HTN (hypertension) Spastic hemiparesis of left dominant side Spastic hemiplegia affecting right dominant side Spastic hemiparesis affecting dominant side Contracture, left hand Bilateral knee contractures Elevated PSA Moderate major depression Insomnia Fibromyalgia GERD (gastroesophageal reflux disease) Hypovitaminosis D Lumbar degenerative disc disease Surgical History Hx of varicose vein ligation and stripping History of prostate surgery History of shoulder surgery History of laminectomy Family History Father Diabetes Hypertension Liver cancer Mother Diabetes Hypertension Stroke Other Substance use disorder Social History Housing: House Are you a primary prompt care rn to a significant other at home: No Do you presently have visiting nurse or other home services: No Alcohol intake: former Patient Tobacco Use Status: Former Tobacco user Cigarettes Per Day: 3 e-Cigarette/Vaping Use: Never Used Second Hand Smoke Exposure: No Advance Directives Date on File: 09/06/22 service: No Current occupational status: disabled Cognitive needs: Yes (cane) Hearing needs: No Vision needs: Yes (reading glasses) Review of Systems Const Details: Const : no body aches, no chills, no excessive sweating and no fatigue Eyes: no blurry vision and no change in vision ENT: no bleeding gums and no change in voice, no dizziness Card: no chest pain, no shortness of breath, no orthopnea, no PND Resp: no cough, no excessive phlegm production, no SOB GI: no abdominal pain and no nausea, no vomiting : no hematuria, + urinary frequency and + difficulty voiding Musc: no abnormal gait, no bone pain Neuro: no abnormal movements, no weakness Psych: no behavioral changes and no change in appetite Endo: no change in body appearance Physical Exam Vital Signs: Last Vital Signs Pulse 74 04/23/25 09:40 BP 120/72 04/23/25 09:40 Pulse Ox 97 04/23/25 09:40 Oxygen Delivery Method Room Air 04/23/25 09:40 General: not in any acute distress, comfortable, sitting on the wheelchair Nutritional Appearance: well nourished and weight Eyes: normal position, no icterus Neck: No lymphadenopathy, no thyromegaly Resp: bilateral air entry equal, no added sounds present Cardio: normal S1, S2 heard, no murmur heard, no edema GI: soft, nontender, no guarding, no hepatosplenomegaly : bladder normal to inspection, bladder normal to palpation, no renal angle tenderness Skin: no rashes or lesions noted and elasticity normal Neuro: oriented to person, oriented to place, oriented to time and significant contractures of bilateral upper extremities Assessment & Plan Assessment & Plan (1) Dysuria: Code(s): R30.0 - Dysuria Category: Medical (2) Renal lesion: Code(s): N28.9 - Disorder of kidney and ureter, unspecified Category: Medical Plan Most recent labs on 03/23/2025: Hemoglobin 10.0, platelet count 209 K Na 138, K 4.6, bicarb 24, Creatinine 0.6, GFR 99, LFT normal UA: nitrite +, WBC 19, RBC 2, urine microalbumin <12 CT Angio abdomen and pelvis: Showed 1.2 cm intermediate lesion at the midpole of right kidney, simple appearing renal cysts and hypodensities that are too small to characterize and a punctate nonobstructing calculus within the lower pole of left kidney. This lesion was not changed from the previous scan Also noted was a 2 cm right adrenal nodule that was unchanged from previous scan Will order MRI of the kidney to characterize the lesion as well as adrenal mass; He sees Dr Ratna Kramer for prostrate issues, can followup with her. Has urinary frequency at night will get urine culture if positive will send antibiotics Orders: Orders Urine Culture Today N28.9 - Disorder of kidney and ureter, unspecified, R30.0 - Dysuria UA and rflx microscopic Today N28.9 - Disorder of kidney and ureter, unspecified, R30.0 - Dysuria MR abdomen wo/w con Today E27.9 - Disorder of adrenal gland, unspecified, N28.9 - Disorder of kidney and ureter, unspecified Coding Level of Care Code New Pt Level 4 (89018) Diagnoses Dysuria R30.0 Renal lesion N28.9
[2025-04-23 09:40] VITALS: BP 120/72; PULSE 74; O2SAT 97
--- OUTSIDE RECORDS SUMMARY | 2025-04-23 10:26 | XMS_ITS | Encounter Summary ---
Author Organization [facility] Address [address] [place] [address] Care Team Providers Care Manufacturing Support Engineer Name Role Phone Farideh Garcia MD Primary Care Provider [phone] Encounter Details Date Type Department Care Team (Late st Contact Info) Description 02/06/2025 Lab Requisition [facility] - Main Lab [address] [facility] [place] [address] Farideh Garcia MD [address] [place] [address] Weakness Social History Tobacco Use Types Packs/Day Years [...] Procedure Name Priority Date/Time Associated Diagnosis Comments COMPLETE BLOOD COUNT Routine 02/06/2025 5:45 AM EDT Weakness BASIC METABOLIC PANEL Routine 02/06/2025 5:45 AM EDT Weakness documented in this encounter Results * (ABNORMAL) Basic metabolic panel (02/06/2025 5:45 AM EDT) Sodium 140 133 - 145 mmol/L LAB CHEMISTRY METHOD 02/06/2025 11:08 AM T [facility] Potassium 3.4(L) 3.5 - 5.5 mmol/L LAB CHEMISTRY METHOD 02/06/2025 11:08 AM T [facility] Chloride 103 96 - 110 mmol/L LAB CHEMISTRY METHOD 02/06/2025 11:08 AM [facility] CO2 31 21 - 32 mmol/L LAB CHEMISTRY METHOD 02/06/2025 11:08 AM [facility] Anion Gap 6 3 - 11 LAB CHEMISTRY METHOD 02/06/2025 11:08 AM [facility] Glucose 82 70 - 100 mg/dL LAB CHEMISTRY METHOD 02/06/2025 11:08 AM [facility] BUN 11 5 - 25 mg/dL LAB CHEMISTRY METHOD 02/06/2025 11:08 AM [facility] Creatinine 0.61(L) 0.70 - 1.30 mg/dL LAB CHEMISTRY METHOD 02/06/2025 11:08 AM [facility] eGFR 100 >=60 mL/min/1. 73m2 LAB CHEMISTRY METHOD 02/06/2025 11:08 AM [facility] Comment:Calculation based on the Chronic Kidney Disease Epidemiology Collaboration (CKD-EPI) equation refit without adjustment for race. BUN/Creatinine Ratio 18.0 LAB CHEMISTRY METHOD 02/06/2025 11:08 AM [facility] Calcium 8.5 8.5 - 10.5 mg/dL LAB CHEMISTRY METHOD 02/06/2025 11:08 AM [facility] Blood Venous blood specimen / Unknown Venipuncture / Unknown 02/06/2025 5:45 AM EDT 02/06/2025 9:25 AM EDT us Farideh Garcia MD LAB BLOOD ORDERABLES Final Resul t [facility] [address] [place] [address], * (ABNORMAL) Complete blood count (02/06/2025 5:45 AM EDT) WBC 7.5 4.8 - 10.8 K/mcL LAB HEMETOLOGY METHOD 02/06/2025 10:51 AM [facility] RBC 4.70 4.50 - 5.50 M/mcL LAB HEMETOLOGY METHOD 02/06/2025 10:51 AM [facility] Hemoglobin 12.5(L) 13.5 - 17.5 g/dL LAB HEMETOLOGY METHOD 02/06/2025 10:51 AM [facility] Hematocrit 39.9(L) 42.0 - 54.0 % LAB HEMETOLOGY METHOD 02/06/2025 10:51 AM [facility] MCV 84.2 79.0 - 98.0 FL LAB HEMETOLOGY METHOD 02/06/2025 10:51 AM [facility] MCH 26.4(L) 27.0 - 32.0 pcg LAB HEMETOLOGY METHOD 02/06/2025 10:51 AM [facility] MCHC 31.3(L) 32.0 - 37.0 g/dL LAB HEMETOLOGY METHOD 02/06/2025 10:51 AM [facility] RDW 15.2(H) 11.0 - 15.0 % LAB HEMETOLOGY METHOD 02/06/2025 10:51 AM [facility] Platelets 184 130 - 400 K/mcL LAB HEMETOLOGY METHOD 02/06/2025 10:51 AM [facility] MPV 9.8 7.0 - 11.0 FL LAB HEMETOLOGY METHOD 02/06/2025 10:51 AM [facility] NRBC 0.0 <1.0 % LAB HEMETOLOGY METHOD 02/06/2025 10:51 AM [facility] NRBC Absolute 0.00 <0.10 K/mcL LAB HEMETOLOGY METHOD 02/06/2025 10:51 AM [facility] Blood Venous blood specimen / Unknown Venipuncture / Unknown 02/06/2025 5:45 AM EDT 02/06/2025 9:25 AM EDT Farideh Garcia MD LAB BLOOD ORDERABLES Final Resul t [facility] ([facility] [address] [place] [address], documented in this encounter Visit Diagnoses Diagnosis Weakness Other malaise and fatigue documented in this encounter Care Teams Manufacturing Support Engineer Relationship Specialty Start Date End Date Farideh Garcia MD [address] [place] [address] [address] [place] [address] PCP - General Geriatric Medicine 09/16/24 documented as of this encounter
--- OUTSIDE RECORDS SUMMARY | 2025-04-23 10:26 | XMS_ITS | Encounter Summary ---
Author Organization [facility] Address [address] [place] [address] Care Team Providers Care Auto Body Repair Technician Name Role Phone Farideh Garcia MD Primary Care Provider [phone] Encounter Details Date Type Department Care Team (Late st Contact Info) Description 12/15/2024 Lab Requisition [facility] - Main Lab [address] [facility] [place] [address] Farideh Garcia MD [address] [place] [address] Frequency of micturition Social History Tobacco Use [...] reflex microscopic (12/14/2024 1:00 PM EDT) Specific [employer] Urine 1.020 1.003 - 1.030 LAB URINALYSIS - AUTOMATED METHOD 12/15/2024 12:[address] [facility] pH, Urine 8.0 5.0 - 8.0 pH LAB URINALYSIS - AUTOMATED METHOD 12/15/2024 12:12 PM [facility] Leukocytes, Urine Trace(A) Negative LAB URINALYSIS - AUTOMATED METHOD 12/15/2024 12:12 PM [facility] Nitrite, Urine Negative Negative LAB URINALYSIS - AUTOMATED METHOD 12/15/2024 12:12 PM [facility] Protein, Urine Trace <=Trace mg/dL LAB URINALYSIS - AUTOMATED METHOD 12/15/2024 12:12 PM [facility] Glucose, Urine Negative Negative mg/dL LAB URINALYSIS - AUTOMATED METHOD 12/15/2024 12:12 PM [facility] Ketones, Urine Trace(A) Negative mg/dL LAB URINALYSIS - AUTOMATED METHOD 12/15/2024 12:12 PM [facility] Urobilinogen, Urine 2.0(A) 0.2 - 1.0 mg/dL LAB URINALYSIS - AUTOMATED METHOD 12/15/2024 12:12 PM [facility] Bilirubin, Urine Negative Negative LAB URINALYSIS - AUTOMATED METHOD 12/15/2024 12:12 PM [facility] Blood, Urine Negative Negative LAB URINALYSIS - AUTOMATED METHOD 12/15/2024 12:12 PM [facility] RBC, Urine 4.8(H) 0 - 4 /HPF LAB URINALYSIS - AUTOMATED METHOD 12/15/2024 12:12 PM [facility] WBC, Urine 0.9 0 - 4 /HPF LAB URINALYSIS - AUTOMATED METHOD 12/15/2024 12:12 PM [facility] Squamous Epithelial, Urine 15 0 - 60 /LPF LAB URINALYSIS - AUTOMATED METHOD 12/15/2024 12:12 PM [facility] Bacteria, Urine Negative Negative /HPF LAB URINALYSIS - AUTOMATED METHOD 12/15/2024 12:[address] [facility] Hyaline Casts, Urine 0.0 0 - 3 /LPF LAB URINALYSIS - AUTOMATED METHOD 12/15/2024 12:[address] [facility] Urine Urine specimen from urethra / Unknown Non-blood Collection / Unknown 12/14/2024 1:00 PM EDT 12/15/2024 11:50 AM EDT us Farideh Garcia MD LAB URINE ORDERABLES Final Resul t [facility] [address] [place] [address], * (ABNORMAL) Culture urine (12/14/2024 1:00 PM EDT) Culture, Urine 10,000-49,000 CFU/mL Proteus mirabilis(A) SHANIA 12/19/2024 8:[address] [facility] Comment: Edited result: Previously reported as Proteus species on 12/18/2024 at 1125 EDT. Culture, Urine 10,000-49,000 CFU/mL Morganella morganii ssp morganii(A) SHANIA 12/19/2024 8:[address] [facility] Comment: The organism value for [...] MICROBIOLOGY - GENERAL ORDER ITZEL Final Result [facility]) [facility] [address] [place] [address], documented in this encounter Visit Diagnoses Diagnosis Frequency of micturition Urinary frequency documented in this encounter Care Teams Auto Body Repair Technician Relationship Specialty Start Date End Date Farideh Garcia MD [address] [place] [address] [address] [place] [address] PCP - General Geriatric Medicine 09/16/24 documented as of this encounter
--- OUTSIDE RECORDS SUMMARY | 2025-04-23 10:26 | XMS_ITS | Encounter Summary ---
[facility] [address] Address [address] [place] [address] Care Team Providers Care Club Room Attendant Name Role Phone Farideh Garcia MD Primary Care Provider [phone] Encounter Details Date Type Department Care Team (Late st Contact Info) Description 12/15/2024 Lab Requisition [facility] - Main Lab [address] [facility] [place] [address] Farideh Garcia MD [address] [place] [address] Benign prostatic hyperplasia with lower urinary tract [...] LAB CHEMISTRY METHOD 12/15/2024 12:44 PM EDT [facility] Blood Venous blood specimen / Unknown Venipuncture / Unknown 12/15/2024 5:57 AM EDT 12/15/2024 11:52 AM EDT Narrative [facility] - 12/15/2024 12:44 PM EDT The Siemens Advia Centaur Chemiluminescent Immunoassay is used. Results obtained with different assay methods or kits cannot be used interchangeably. Results cannot be interpreted as absolute evidence of the presence or absence of malignant disease. us Farideh Garcia MD LAB BLOOD ORDERABLES Final Resul t [facility] ([facility]) [facility] [address] [place] [address], documented in this encounter Visit Diagnoses Diagnosis Benign prostatic hyperplasia with lower urinary tract symptoms documented in this encounter Care Teams Club Room Attendant Relationship Specialty Start Date End Date Farideh Garcia MD [address] [place] [address] [address] [place] [address] PCP - General Geriatric Medicine 09/16/24 documented as of this encounter
--- OUTSIDE RECORDS SUMMARY | 2025-04-23 10:26 | XMS_ITS | Encounter Summary ---
Author Organization [facility] Address [address] [place] [address] Care Team Providers Care Air Traffic Control Equipment Repairer Name Role Phone Farideh Garcia MD Primary Care Provider [phone] Encounter Details Date Type Department Care Team (Late st Contact Info) Description 09/23/2024 Lab Requisition [facility] - Main Lab [address] [facility] [place] [address] Kris Osorio MD [address] [place] [address] Benign prostatic hyperplasia without lower urinary tract [...] LAB CHEMISTRY METHOD 09/24/2024 11:13 AM EST [facility] Blood Venous blood specimen / Unknown Venipuncture / Unknown 09/24/2024 6:55 AM EST 09/24/2024 10:15 AM EST Kris Osorio MD LAB BLOOD ORDERABLES Final Res ult Performing Organization Address [facility]/ZIP Co de Phone Number [facility] [address] [place] [address], * Magnesium (09/24/2024 6:55 AM EST) Pathologist [facility] Magnesium 2.3 1.9 - 2.6 mg/dL LAB CHEMISTRY METHOD 09/24/2024 11:04 AM EST [facility] Blood Venous blood specimen / Unknown Venipuncture / Unknown 09/24/2024 6:55 AM EST 09/24/2024 10:15 AM EST Kris Osorio MD LAB BLOOD ORDERABLES Final Res ult [facility] [address] [place] [address], * (ABNORMAL) Folate (09/24/2024 6:55 AM EST) Pathologist [facility] Folate >20.0(H) 2.8 - 17.0 ng/ml LAB CHEMISTRY METHOD 09/24/2024 11:15 AM EST [facility] Blood Venous blood specimen / Unknown Venipuncture / Unknown 09/24/2024 6:55 AM EST 09/24/2024 10:15 AM EST Kris Osorio MD LAB BLOOD ORDERABLES Final Res ult [facility] [address] [place] [address], [place] [phone] * (ABNORMAL) Comprehensive metabolic panel (09/24/2024 6:55 AM EST) Sodium 139 133 - 145 mmol/L LAB CHEMISTRY METHOD 09/24/2024 11:15 AM [facility] Potassium 3.9 3.5 - 5.5 mmol/L LAB CHEMISTRY METHOD 09/24/2024 11:15 AM [facility] Chloride 103 96 - 110 mmol/L LAB CHEMISTRY METHOD 09/24/2024 11:15 AM [facility] CO2 33(H) 21 - 32 mmol/L LAB CHEMISTRY METHOD 09/24/2024 11:15 AM [facility] Anion Gap 3 3 - 11 LAB CHEMISTRY METHOD 09/24/2024 11:15 AM [facility] Glucose 104(H) 70 - 100 mg/dL LAB CHEMISTRY METHOD 09/24/2024 11:15 AM [facility] BUN 17 5 - 25 mg/dL LAB CHEMISTRY METHOD 09/24/2024 11:15 AM [facility] Creatinine 0.57(L) 0.70 - 1.30 mg/dL LAB CHEMISTRY METHOD 09/24/2024 11:15 AM [facility] eGFR 102 >=60 mL/min/1. 73m2 LAB CHEMISTRY METHOD 09/24/2024 11:15 AM [facility] Comment:Calculation based on the Chronic Kidney Disease Epidemiology Collaboration (CKD-EPI) equation refit without adjustment for race. BUN/Creatinine Ratio 29.8 LAB CHEMISTRY METHOD 09/24/2024 11:15 AM [facility] Calcium 8.7 8.5 - 10.5 mg/dL LAB CHEMISTRY METHOD 09/24/2024 11:15 AM [facility] AST (SGOT) 21 10 - 42 unit/L LAB CHEMISTRY METHOD 09/24/2024 11:15 AM [facility] ALT (SGPT) 38 10 - 60 unit/L LAB CHEMISTRY METHOD 09/24/2024 11:15 AM [facility] Alkaline Phosphatase 102 42 - 121 unit/L LAB CHEMISTRY METHOD 09/24/2024 11:15 AM [facility] Total Protein 6.0 6.0 - 8.0 g/dL LAB CHEMISTRY METHOD 09/24/2024 11:15 AM [facility] Albumin 3.3 3.2 - 5.0 g/dL LAB CHEMISTRY METHOD 09/24/2024 11:15 AM [facility] Total Bilirubin 0.2 0.0 - 1.4 mg/dL LAB CHEMISTRY METHOD 09/24/2024 11:15 AM [facility] Blood Venous blood specimen / Unknown Venipuncture / Unknown 09/24/2024 6:55 AM EST 09/24/2024 10:15 AM EST us Kris Osorio MD LAB BLOOD ORDERABLES Final Res ult [facility] [address] [place] [address], * (ABNORMAL) Complete blood count (09/24/2024 6:55 AM EST) WBC 8.9 4.8 - 10.8 K/mcL LAB HEMETOLOGY METHOD 09/24/2024 10:37 AM [facility] RBC 4.60 4.50 - 5.50 M/mcL LAB HEMETOLOGY METHOD 09/24/2024 10:37 AM [facility] Hemoglobin 12.3(L) 13.5 - 17.5 g/dL LAB HEMETOLOGY METHOD 09/24/2024 10:37 AM [facility] Hematocrit 38.7(L) 42.0 - 54.0 % LAB HEMETOLOGY METHOD 09/24/2024 10:37 AM [facility] MCV 84.7 79.0 - 98.0 FL LAB HEMETOLOGY METHOD 09/24/2024 10:37 AM [facility] MCH 26.9(L) 27.0 - 32.0 pcg LAB HEMETOLOGY METHOD 09/24/2024 10:37 AM [facility] MCHC 31.8(L) 32.0 - 37.0 g/dL LAB HEMETOLOGY METHOD 09/24/2024 10:37 AM [facility] RDW 13.7 11.0 - 15.0 % LAB HEMETOLOGY METHOD 09/24/2024 10:37 AM [facility] Platelets 194 130 - 400 K/[facility] LAB HEMETOLOGY METHOD 09/24/2024 10:37 AM [facility] MPV 10.3 7.0 - 11.0 FL LAB HEMETOLOGY METHOD 09/24/2024 10:37 AM [facility] NRBC 0.2 <1.0 % LAB HEMETOLOGY METHOD 09/24/2024 10:37 AM [facility] NRBC Absolute 0.02 <0.10 K/[facility] LAB HEMETOLOGY METHOD 09/24/2024 10:37 AM [facility] Blood Venous blood specimen / Unknown Venipuncture / Unknown 09/24/2024 6:55 AM EST 09/24/2024 10:15 AM EST Kris Osorio MD LAB BLOOD ORDERABLES Final Res ult [facility] ([facility] H[facility] LAB [address] [place] [address], documented in this encounter Visit Diagnoses Diagnosis Benign prostatic hyperplasia without lower urinary tract symptoms Vitamin D deficiency, unspecified Essential (primary) hypertension Unspecified essential hypertension documented in this encounter Care Teams Air Traffic Control Equipment Repairer Relationship Specialty Start Date End Date Farideh Garcia MD [address] [place] [address] [address] [place] [address] PCP - General Geriatric Medicine 09/16/24 documented as of this encounter
--- OUTSIDE RECORDS SUMMARY | 2025-04-23 10:26 | XMS_ITS | Encounter Summary ---
Author Organization Cindy [facility] Address [address] [place] [address] Care Team Providers Care Docking Saw Operator Name Role Phone Farideh Garcia MD Primary Care Provider Encounter Details Date Type Department Care Team (Late st Contact Info) Description 12/11/2024 Lab Requisition [facility] - Main Lab [address] [facility] [place] [address] Farideh Garcia MD [address] [place] [address] Dysuria Social History Tobacco Use Types Packs/Day [...] recollection if clinically indicated. 12/12/2024 10:31 AM [facility] Urine Urine specimen obtained by clean catch procedure / Unknown 12/10/2024 3:10 PM EDT 12/11/2024 9:03 AM EDT us Farideh Garcia MD LAB MICROBIOLOGY - GENERAL ORDER ITZEL Final Result [facility] [address] [place] [address], [place] [phone] * (ABNORMAL) Urinalysis with reflex microscopic and culture (12/10/2024 3:10 PM EDT) Specific [place] Urine 1.020 1.003 - 1.030 LAB URINALYSIS - AUTOMATED METHOD 12/11/2024 9:03 AM [facility] pH, Urine 7.0 5.0 - 8.0 pH LAB URINALYSIS - AUTOMATED METHOD 12/11/2024 9:03 AM [facility] Leukocytes, Urine Trace(A) Negative LAB URINALYSIS - AUTOMATED METHOD 12/11/2024 9:03 AM [facility] Nitrite, Urine Positive(A) Negative LAB URINALYSIS - AUTOMATED METHOD 12/11/2024 9:03 AM [facility] Protein, Urine Negative <=Trace mg/dL LAB URINALYSIS - AUTOMATED METHOD 12/11/2024 9:03 AM [facility] Glucose, Urine Negative Negative mg/dL LAB URINALYSIS - AUTOMATED METHOD 12/11/2024 9:03 AM [facility] Ketones, Urine Negative Negative mg/dL LAB URINALYSIS - AUTOMATED METHOD 12/11/2024 9:03 AM [facility] Urobilinogen , Urine 0.2 0.2 - 1.0 mg/dL LAB URINALYSIS - AUTOMATED METHOD 12/11/2024 9:03 AM [facility] Bilirubin, Urine Negative Negative LAB URINALYSIS - AUTOMATED METHOD 12/11/2024 9:03 AM EDT [facility] Blood, Urine Negative Negative LAB URINALYSIS - AUTOMATED METHOD 12/11/2024 9:03 AM [facility] RBC, Urine 7.0(H) 0 - 4 /HPF LAB URINALYSIS - AUTOMATED METHOD 12/11/2024 9:03 AM [facility] WBC, Urine 3.8 0 - 4 /HPF LAB URINALYSIS - AUTOMATED METHOD 12/11/2024 9:03 AM [facility] Squamous Epithelial, Urine 67(H) 0 - 60 /LPF LAB URINALYSIS - AUTOMATED METHOD 12/11/2024 9:03 AM [facility] Bacteria, Urine Many(A) Negative /HPF LAB URINALYSIS - AUTOMATED METHOD 12/11/2024 9:03 AM [facility] Hyaline Casts, Urine 2.0 0 - 3 /LPF LAB URINALYSIS - AUTOMATED METHOD 12/11/2024 9:03 AM [facility] Urine Urine specimen obtained by clean catch procedure / Unknown 12/10/2024 3:10 PM EDT 12/11/2024 8:32 AM EDT us Farideh Garcia MD LAB URINE ORDERABLES Final Resul t [facility] [address] [place] [address], * Kumari urine culture tube (12/10/2024 3:10 PM EDT) Extra Tube Hold for add-ons. 12/11/2024 10:01 AM EDT [facility] Comment:Auto resulted. Urine Urine specimen obtained by clean catch procedure / Unknown 12/10/2024 3:10 PM EDT 12/11/2024 8:32 AM EDT us Farideh Garcia MD LAB URINE ORDERABLES Final Resul t [facility] [address] [place] [address], documented in this encounter Visit Diagnoses Diagnosis Dysuria documented in this encounter Care Teams Docking Saw Operator Relationship Specialty Start Date End Date Farideh Garcia MD [address] [place] [address] [address] [place] [address] PCP - General Geriatric Medicine 09/16/24 documented as of this encounter
--- OUTSIDE RECORDS SUMMARY | 2025-04-23 10:26 | XMS_ITS | Encounter Summary ---
Author Organization Cindy [facility] Address [address] [place] [address] Care Team Providers Care Body Designer Name Role Phone Farideh Garcia MD Primary Care Provider [phone] Encounter Details Date Type Department Care Team (Late st Contact Info) Description 09/16/[address] [facility] - Main Lab 299 [facility] [place] [address] Farideh Garcia MD [address] [place] [address] Shortness of breath; Acute cough Social History [...] Procedure Name Priority Date/Time Associated Diagnosis Comments [id number], RSV, FLU A AND B QUALITATIVE RT-PCR, LOCAL REFERENCE LAB Routine 09/15/2024 12:00 PM EST Shortness of breath Acute cough documented in this encounter Results * [id number], RSV, Influenza A and B qualitative RT-PCR (09/15/2024 12:00 PM EST) SARS COV-2 Not Detected Not Detected LAB MOLECULAR DIAGNOSTICS METHOD 09/16/2024 12:35 PM EST [facility] Comment: Disclaimer: The manner in which this information is used to guide patient care is the responsibility of the healthcare provider. Testing was performed using the [employer] m SARS-CoV-2 test. This test has been [...] for Healthcare Providers can be found at: https://www.fda.gov/media/780440/download Fact sheet for Patients can be found at: https://www.fda.gov/media/709056/download Influenza A PCR Not Detected Not Detected LAB MOLECULAR DIAGNOSTICS METHOD 09/16/2024 12:35 PM EST [facility] Influenza B PCR Not Detected Not Detected LAB MOLECULAR DIAGNOSTICS METHOD 09/16/2024 12:35 PM [facility] RSV PCR Not Detected Not Detected LAB MOLECULAR DIAGNOSTICS METHOD 09/16/2024 12:35 PM [facility] Swab Nasopharyngeal structure / Unknown 09/15/2024 12:00 PM EST 09/16/2024 9:43 AM EST Farideh Garcia MD LAB MICROBIOLOGY - GENERAL ORDER ITZEL Final Result [facility] [address] [place] [address], documented in this encounter Visit Diagnoses Diagnosis Shortness of breath Acute cough documented in this encounter Additional Health Concerns Infection Onset Date Last Indicated Resolved Time Respiratory Rule-Out 09/16/2024 09/15/2024 025 12:35 PM EST documented as of this encounter Care Teams Body Designer Relationship Specialty Start Date End Date Farideh Garcia MD [address] [facility] [address] [place] [address] PCP - General Geriatric Medicine 09/16/24 documented as of this encounter
--- OUTSIDE RECORDS SUMMARY | 2025-04-23 10:26 | XMS_ITS | Clinical Summary ---
Author Organization 299 [facility] Address [address] [place] [address] Phone Care Team Providers Care Client Manager Large Law Name Role Phone Farideh Garcia MD Primary Care Provider [phone] Encounters Date Type Department Care Team Description 02/06/2025 Lab Requisition [facility] - Main Lab [address] [place] [address] Farideh Garcia MD Weakness from Last 3 Months Social History Tobacco [...] series) 2023 Cholesterol Screening (Lipid Panel) 09/14/2023 Falls Risk Assessment 09/14/2023 Hepatitis C Screening 09/14/2023 Medicare Annual Wellness Visit 09/14/2023 Social Influencers of Health Screening 09/14/2023 Depression Screening 08/20/2024 COVID-19 Vaccine (1 - 2023-2 5 season) 2025 Influenza Vaccine (#1) 2025 Hypertension/CHF/CAD Annual BMP Blood Test 02/06/2026 02/06/2025, 09/24/2024, 08/22/2024 HIB Vaccines Aged Out No [...] Associated Diagnosis Comments BASIC METABOLIC PANEL Routine 02/06/2025 5:45 AM EDT Weakness COMPLETE BLOOD COUNT Routine 02/06/2025 5:45 AM EDT Weakness from Last 3 Months Results * (ABNORMAL) Complete blood count (02/06/2025 5:45 AM EDT) WBC 7.5 4.8 - 10.8 K/mcL LAB HEMETOLOGY METHOD 02/06/2025 10:51 AM [facility] RBC 4.70 4.50 - 5.50 M/mcL LAB HEMETOLOGY METHOD 02/06/2025 10:51 AM [facility] Hemoglobin 12.5(L) 13.5 - 17.5 g/dL LAB HEMETOLOGY METHOD 02/06/2025 10:51 AM [facility] Hematocrit 39.9(L) 42.0 - 54.0 % LAB HEMETOLOGY METHOD 02/06/2025 10:51 AM [facility] MCV 84.2 79.0 - 98.0 FL LAB HEMETOLOGY METHOD 02/06/2025 10:51 AM [facility] MCH 26.4(L) 27.0 - 32.0 pcg LAB HEMETOLOGY METHOD 02/06/2025 10:51 AM EDT [facility] MCHC 31.3(L) 32.0 - 37.0 g/dL LAB HEMETOLOGY METHOD 02/06/2025 10:51 AM EDT [facility] RDW 15.2(H) 11.0 - 15.0 % LAB HEMETOLOGY METHOD 02/06/2025 10:51 AM EDT [facility] Platelets 184 130 - 400 K/mcL LAB HEMETOLOGY METHOD 02/06/2025 10:51 AM EDT [facility] MPV 9.8 7.0 - 11.0 FL LAB HEMETOLOGY METHOD 02/06/2025 10:51 AM EDT [facility] NRBC 0.0 <1.0 % LAB HEMETOLOGY METHOD 02/06/2025 10:51 AM EDT [facility] NRBC Absolute 0.00 <0.10 K/mcL LAB HEMETOLOGY METHOD 02/06/2025 10:51 AM T [facility] Blood Venous blood specimen / Unknown Venipuncture / Unknown 02/06/2025 5:45 AM EDT 02/06/2025 9:25 AM EDT us Farideh Garcia MD LAB BLOOD ORDERABLES Final Resul t [facility] [address] [place] [address], * (ABNORMAL) Basic metabolic panel (02/06/2025 5:45 AM EDT) Sodium 140 133 - 145 mmol/L LAB CHEMISTRY METHOD 02/06/2025 11:08 AM EDT [facility] Potassium 3.4(L) 3.5 - 5.5 mmol/L LAB CHEMISTRY METHOD 02/06/2025 11:08 AM EDT [facility] Chloride 103 96 - 110 mmol/L LAB CHEMISTRY METHOD 02/06/2025 11:08 AM [facility] CO2 31 21 - 32 mmol/L LAB CHEMISTRY METHOD 02/06/2025 11:08 AM [facility] Anion Gap 6 3 - 11 LAB CHEMISTRY METHOD 02/06/2025 11:08 AM [facility] Glucose 82 70 - 100 mg/dL LAB CHEMISTRY METHOD 02/06/2025 11:08 AM [facility] BUN 11 5 - 25 mg/dL LAB CHEMISTRY METHOD 02/06/2025 11:08 AM [facility] Creatinine 0.61(L) 0.70 - 1.30 mg/dL LAB CHEMISTRY METHOD 02/06/2025 11:08 AM [facility] eGFR 100 >=60 mL/min/1. 73m2 LAB CHEMISTRY METHOD 02/06/2025 11:08 AM [facility] Comment:Calculation based on the Chronic Kidney Disease Epidemiology Collaboration (CKD-EPI) equation refit without adjustment for race. BUN/Creatinine Ratio 18.0 LAB CHEMISTRY METHOD 02/06/2025 11:08 AM [facility] Calcium 8.5 8.5 - 10.5 mg/dL LAB CHEMISTRY METHOD 02/06/2025 11:08 AM [facility] Blood Venous blood specimen / Unknown Venipuncture / Unknown 02/06/2025 5:45 AM EDT 02/06/2025 9:25 AM EDT us Farideh Gacria MD LAB BLOOD ORDERABLES Final Resul t [facility] [address] [place] [address], [place] [phone] from Last 3 Months Insurance MEDICARE MEDICAID - [place] Care Teams Client Manager Large Law Relationship Specialty Start Date End Date Farideh Garcia MD [address] [place] [address] [address] [place] [address] PCP - General Geriatric Medicine 09/16/24
--- OUTSIDE RECORDS SUMMARY | 2025-04-23 10:26 | XMS_ITS | Encounter Summary ---
Author Organization Cindy [facility] Address [address] [place] [address] Care Team Providers Care Salvage Clerk Name Role Phone Farideh Garcia MD Primary Care Provider [phone] Encounter Details Date Type Department Care Team (Late st Contact Info) Description 08/21/2024 Lab Requisition [facility] - Main Lab [address] [place] [address] Kris Osorio MD [address] [place] [id number] Essential (primary) hypertension Social History Tobacco Use [...] LAB CHEMISTRY METHOD 08/22/2024 10:42 AM EST [facility] Potassium 3.5 3.5 - 5.5 mmol/L LAB CHEMISTRY METHOD 08/22/2024 10:42 AM EST [facility] Chloride 105 96 - 110 mmol/L LAB CHEMISTRY METHOD 08/22/2024 10:42 AM EST [facility] CO2 31 21 - 32 mmol/L LAB CHEMISTRY METHOD 08/22/2024 10:42 AM [facility] Anion Gap 6 3 - 11 LAB CHEMISTRY METHOD 08/22/2024 10:42 AM [facility] Glucose 124(H) 70 - 100 mg/dL LAB CHEMISTRY METHOD 08/22/2024 10:42 AM [facility] BUN 16 5 - 25 mg/dL LAB CHEMISTRY METHOD 08/22/2024 10:42 AM [facility] Creatinine 0.61(L) 0.70 - 1.30 mg/dL LAB CHEMISTRY METHOD 08/22/2024 10:42 AM [facility] eGFR 100 >=60 mL/min/1. 73m2 LAB CHEMISTRY METHOD 08/22/2024 10:42 AM [facility] Comment:Calculation based on the Chronic Kidney Disease Epidemiology Collaboration (CKD-EPI) equation refit without adjustment for race. BUN/Creatinine Ratio 26.2 LAB CHEMISTRY METHOD 08/22/2024 10:42 AM [facility] Calcium 8.4(L) 8.5 - 10.5 mg/dL LAB CHEMISTRY METHOD 08/22/2024 10:42 AM [facility] Blood Venous blood specimen / Unknown Venipuncture / Unknown 08/22/2024 5:29 AM EST 08/22/2024 10:05 AM EST us Kris Osorio MD LAB BLOOD ORDERABLES Final Res ult [facility] [address] [place] [address], documented in this encounter Visit Diagnoses Diagnosis Essential (primary) hypertension Unspecified essential hypertension documented in this encounter Additional Health Concerns Infection Onset Date Last Indicated Resolved Time Respiratory Rule-Out 09/16/2024 09/15/2024 025 12:35 PM EST documented as of this encounter Care Teams Salvage Clerk Relationship Specialty Start Date End Date Farideh Garcia MD [address] [facility] [address] [place] [address] PCP - General Geriatric Medicine 09/16/24 documented as of this encounter
--- OUTSIDE RECORDS SUMMARY | 2025-04-23 10:26 | XMS_ITS | Encounter Summary ---
Author Organization [facility] Address [address] [place] [address] Care Team Providers Care University Manager Name Role Phone Farideh Garcia MD Primary Care Provider [phone] Encounter Details Date Type Department Care Team (Late st Contact Info) Description 10/21/[address] [facility] - Main Lab 299 [facility] [address] Farideh Garcia MD [address] [place] [address] Vitamin D deficiency, unspecified Social History Tobacco [...] LAB CHEMISTRY METHOD 10/22/2024 12:24 PM EST [facility] Blood Venous blood specimen / Unknown Venipuncture / Unknown 10/22/2024 5:45 AM EST 10/22/2024 11:10 AM EST us Farideh Garcia MD LAB BLOOD ORDERABLES Final Resul t [facility] [address] [place] [address], documented in this encounter Visit Diagnoses Diagnosis Vitamin D deficiency, unspecified documented in this encounter Care Teams University Manager Relationship Specialty Start Date End Date Farideh Garcia MD [address] [place] [address] [address] [place] [address] PCP - General Geriatric Medicine 09/16/24 documented as of this encounter
== END 2025-04-23 10:18 | disposition home or self-care (01) ==
LOC: HO.HKA 09:37
PROVIDERS: PCP Internal Medicine; Visit Provider Internal Medicine Critical Care Medicine
DX: R30.0 Dysuria (principal); N28.9 Disorder of kidney and ureter, unspecified
CPT/HCPCS: 99204

== ENCOUNTER → 2025-05-08 10:23 | Outpatient (BNV) | payer MEDICARE, MEDICAID, SELFPAY | PROVIDERS: PCP Internal Medicine; Visit Provider Radiology Diagnostic Radiology | DX: D35.01 Benign neoplasm of right adrenal gland (principal) | CPT/HCPCS: 74183 ==

== ENCOUNTER 2025-05-08 10:29 | Outpatient (REF) | payer MEDICARE, MEDICAID, SELFPAY ==
--- NOTE | ~2025-05-08 | MR_ITS ---
EXAMINATION: MR ABDOMEN WITHOUT THEN WITH IV CONTRAST HISTORY: N28.9 - Disorder of kidney and ureter, unspecified COMPARISON: Correlation is made with an abdominal CT dated 07/09/2011. TECHNIQUE: Axial in and out of phase T1-weighted gradient echo, axial diffusion weighted, and axial and coronal HASTE T2 with fat saturation images were obtained through the abdomen. Subsequently, fat suppressed axial and coronal T1-weighted images were obtained after the intravenous administration of 8.5 mL Gadavist. FINDINGS: The examination is limited by patient motion, particularly on the postcontrast images. Liver: There is no loss of signal intensity in the liver on opposed phase imaging to suggest steatosis. There is no definite enhancing liver mass. The hepatic and portal veins are patent. There is no intrahepatic biliary dilatation. Gallbladder/biliary tree: No gallstones are identified. The common bile duct is normal in caliber. No intraluminal filling defects are identified to suggest choledocholithiasis. Spleen: The spleen is unremarkable. Pancreas: The pancreas is unremarkable. There is no definite enhancing pancreatic mass. The pancreatic duct is normal in caliber. Adrenals: There is a 2.1 cm right adrenal mass. This demonstrates diffuse loss of signal intensity on opposed phase imaging, consistent with an adenoma. It is also unchanged in size from the prior CT scan. The left adrenal gland is unremarkable.. Kidneys: No right renal lesion is identified. There is a 9 mm cyst in the interpolar region of the left kidney. There is no hydronephrosis. Lymph nodes: There is no retroperitoneal lymphadenopathy in the upper abdomen. Fluid: There is no ascites in the upper abdomen. Visualized bowel: The visualized small and large bowel loops are unremarkable in appearance. Visualized bones: The visualized bones demonstrate normal marrow signal intensity. MR/MR abdomen wo/w con IMPRESSION: 1. Limited examination due to patient motion. 2. 2.1 cm right adrenal adenoma without change since 07/09/2011. 3. No right renal mass is identified. Electronically signed by: Marek March MD 05/08/2025 12:04 PM EDT
--- OUTSIDE RECORDS SUMMARY | 2025-05-08 11:05 | XMS_ITS | Encounter Summary ---
Author Organization Cindy [facility] Address [address] [place] [address] Care Team Providers Care Drilling Rig Operator Name Role Phone Farideh Garcia MD Primary Care Provider [phone] Encounter Details Date Type Department Care Team (Late st Contact Info) Description 09/16/2024 Lab Requisition [facility] - Main Lab 299 [facility] [place] [address] Farideh Garcia MD [address] [place] [address] Shortness of breath; Acute cough Social History [...] Procedure Name Priority Date/Time Associated Diagnosis Comments [id number], RSV, FLU A AND B QUALITATIVE RT-PCR, LOCAL REFERENCE LAB Routine 09/15/2024 12:00 PM EST Shortness of breath Acute cough documented in this encounter Results * [id number], RSV, Influenza A and B qualitative RT-PCR (09/15/2024 12:00 PM EST) SARS COV-2 Not Detected Not Detected LAB MOLECULAR DIAGNOSTICS METHOD 09/16/2024 12:35 PM EST [facility] Comment: Disclaimer: The manner in which this information is used to guide patient care is the responsibility of the healthcare provider. Testing was performed using the [employer] ([employer]) m SARS-CoV-2 test. This test has been [...] for Healthcare Providers can be found at: https://www.fda.gov/media/226485/download Fact sheet for Patients can be found at: https://www.fda.gov/media/017322/download Influenza A PCR Not Detected Not Detected LAB MOLECULAR DIAGNOSTICS METHOD 09/16/2024 12:[address] [facility] Influenza B PCR Not Detected Not Detected LAB MOLECULAR DIAGNOSTICS METHOD 09/16/2024 12:35 PM [facility] RSV PCR Not Detected Not Detected LAB MOLECULAR DIAGNOSTICS METHOD 09/16/2024 12:35 PM [facility] Swab Nasopharyngeal structure / Unknown 09/15/2024 12:00 PM EST 09/16/2024 9:43 AM EST Farideh Garcia MD LAB MICROBIOLOGY - GENERAL ORDER ITZEL Final Result [facility] [address] [place] [address], documented in this encounter Visit Diagnoses Diagnosis Shortness of breath Acute cough documented in this encounter Additional Health Concerns Infection Onset Date Last Indicated Resolved Time Respiratory Rule-Out 09/16/2024 09/15/2024 025 12:35 PM EST documented as of this encounter Care Teams Drilling Rig Operator Relationship Specialty Start Date End Date Farideh Garcia MD [address] [facility] [address] [place] [address] PCP - General Geriatric Medicine 09/16/24 documented as of this encounter
--- OUTSIDE RECORDS SUMMARY | 2025-05-08 11:05 | XMS_ITS | Encounter Summary ---
Author Organization Cindy [facility] Address [address] [place] [address] Care Team Providers Care Rug Cutter Name Role Phone Farideh Garcia MD Primary Care Provider [phone] Encounter Details Date Type Department Care Team (Late st Contact Info) Description 08/21/2024 Lab Requisition [facility] - Main Lab [address] [place] [address] Kris Osorio MD [address] [place] [address] Essential (primary) hypertension Social History Tobacco Use [...] LAB CHEMISTRY METHOD 08/22/2024 10:42 AM EST [facility] Potassium 3.5 3.5 - 5.5 mmol/L LAB CHEMISTRY METHOD 08/22/2024 10:42 AM EST [facility] Chloride 105 96 - 110 mmol/L LAB CHEMISTRY METHOD 08/22/2024 10:42 AM EST [facility] CO2 31 21 - 32 mmol/L LAB CHEMISTRY METHOD 08/22/2024 10:42 AM [facility] Anion Gap 6 3 - 11 LAB CHEMISTRY METHOD 08/22/2024 10:42 AM [facility] Glucose 124(H) 70 - 100 mg/dL LAB CHEMISTRY METHOD 08/22/2024 10:42 AM [facility] BUN 16 5 - 25 mg/dL LAB CHEMISTRY METHOD 08/22/2024 10:42 AM [facility] Creatinine 0.61(L) 0.70 - 1.30 mg/dL LAB CHEMISTRY METHOD 08/22/2024 10:42 AM [facility] eGFR 100 >=60 mL/min/1. 73m2 LAB CHEMISTRY METHOD 08/22/2024 10:42 AM [facility] Comment:Calculation based on the Chronic Kidney Disease Epidemiology Collaboration (CKD-EPI) equation refit without adjustment for race. BUN/Creatinine Ratio 26.2 LAB CHEMISTRY METHOD 08/22/2024 10:42 AM [facility] Calcium 8.4(L) 8.5 - 10.5 mg/dL LAB CHEMISTRY METHOD 08/22/2024 10:42 AM [facility] Blood Venous blood specimen / Unknown Venipuncture / Unknown 08/22/2024 5:29 AM EST 08/22/2024 10:05 AM EST us Kris Osorio MD LAB BLOOD ORDERABLES Final Res ult [facility] [address] [place] [address], documented in this encounter Visit Diagnoses Diagnosis Essential (primary) hypertension Unspecified essential hypertension documented in this encounter Additional Health Concerns Infection Onset Date Last Indicated Resolved Time Respiratory Rule-Out 09/16/2024 09/15/2024 025 12:35 PM EST documented as of this encounter Care Teams Rug Cutter Relationship Specialty Start Date End Date Farideh Garcia MD [address] [facility] [address] [place] [address] PCP - General Geriatric Medicine 09/16/24 documented as of this encounter
--- OUTSIDE RECORDS SUMMARY | 2025-05-08 11:05 | XMS_ITS | Encounter Summary ---
Author Organization [employer] Address [address] [place] [address] Care Team Providers Care Nodulizer Name Role Phone Farideh Garcia MD Primary Care Provider [phone] Encounter Details Date Type Department Care Team (Late st Contact Info) Description 09/23/2024 Lab Requisition [facility] - Main Lab 299 [facility] [place] [address] Kris Osorio MD [address] [place] [address] Benign prostatic hyperplasia without lower urinary tract [...] LAB CHEMISTRY METHOD 09/24/2024 11:13 AM EST [facility] Blood Venous blood specimen / Unknown Venipuncture / Unknown 09/24/2024 6:55 AM EST 09/24/2024 10:15 AM EST Kris Osorio MD LAB BLOOD ORDERABLES Final Res ult Performing Organization Address [facility]/ZIP Co de Phone Number [facility] [address] [place] [address], * Magnesium (09/24/2024 6:55 AM EST) Pathologist [facility] Magnesium 2.3 1.9 - 2.6 mg/dL LAB CHEMISTRY METHOD 09/24/2024 11:04 AM EST [facility] Blood Venous blood specimen / Unknown Venipuncture / Unknown 09/24/2024 6:55 AM EST 09/24/2024 10:15 AM EST Kris Osorio MD LAB BLOOD ORDERABLES Final Res ult [facility] [address] [place] [address], * (ABNORMAL) Folate (09/24/2024 6:55 AM EST) Pathologist [facility] Folate >20.0(H) 2.8 - 17.0 ng/ml LAB CHEMISTRY METHOD 09/24/2024 11:15 AM EST [facility] Blood Venous blood specimen / Unknown Venipuncture / Unknown 09/24/2024 6:55 AM EST 09/24/2024 10:15 AM EST Kris Osorio MD LAB BLOOD ORDERABLES Final Res ult [facility] [address] [place] [address], [place] [phone] * (ABNORMAL) Comprehensive metabolic panel (09/24/2024 6:55 AM EST) Sodium 139 133 - 145 mmol/L LAB CHEMISTRY METHOD 09/24/2024 11:15 AM [facility] Potassium 3.9 3.5 - 5.5 mmol/L LAB CHEMISTRY METHOD 09/24/2024 11:15 AM [facility] Chloride 103 96 - 110 mmol/L LAB CHEMISTRY METHOD 09/24/2024 11:15 AM [facility] CO2 33(H) 21 - 32 mmol/L LAB CHEMISTRY METHOD 09/24/2024 11:15 AM [facility] Anion Gap 3 3 - 11 LAB CHEMISTRY METHOD 09/24/2024 11:15 AM [facility] Glucose 104(H) 70 - 100 mg/dL LAB CHEMISTRY METHOD 09/24/2024 11:15 AM [facility] BUN 17 5 - 25 mg/dL LAB CHEMISTRY METHOD 09/24/2024 11:15 AM [facility] Creatinine 0.57(L) 0.70 - 1.30 mg/dL LAB CHEMISTRY METHOD 09/24/2024 11:15 AM [facility] eGFR 102 >=60 mL/min/1. 73m2 LAB CHEMISTRY METHOD 09/24/2024 11:15 AM [facility] Comment:Calculation based on the Chronic Kidney Disease Epidemiology Collaboration (CKD-EPI) equation refit without adjustment for race. BUN/Creatinine Ratio 29.8 LAB CHEMISTRY METHOD 09/24/2024 11:15 AM [facility] Calcium 8.7 8.5 - 10.5 mg/dL LAB CHEMISTRY METHOD 09/24/2024 11:15 AM [facility] AST (SGOT) 21 10 - 42 unit/L LAB CHEMISTRY METHOD 09/24/2024 11:15 AM [facility] ALT (SGPT) 38 10 - 60 unit/L LAB CHEMISTRY METHOD 09/24/2024 11:15 AM [facility] Alkaline Phosphatase 102 42 - 121 unit/L LAB CHEMISTRY METHOD 09/24/2024 11:15 AM [facility] Total Protein 6.0 6.0 - 8.0 g/dL LAB CHEMISTRY METHOD 09/24/2024 11:15 AM [facility] Albumin 3.3 3.2 - 5.0 g/dL LAB CHEMISTRY METHOD 09/24/2024 11:15 AM [facility] Total Bilirubin 0.2 0.0 - 1.4 mg/dL LAB CHEMISTRY METHOD 09/24/2024 11:15 AM [facility] Blood Venous blood specimen / Unknown Venipuncture / Unknown 09/24/2024 6:55 AM EST 09/24/2024 10:15 AM EST us Kris Osorio MD LAB BLOOD ORDERABLES Final Res ult [facility] [address] [place] [address], * (ABNORMAL) Complete blood count (09/24/2024 6:55 AM EST) WBC 8.9 4.8 - 10.8 K/mcL LAB HEMETOLOGY METHOD 09/24/2024 10:37 AM [facility] RBC 4.60 4.50 - 5.50 M/mcL LAB HEMETOLOGY METHOD 09/24/2024 10:37 AM [facility] Hemoglobin 12.3(L) 13.5 - 17.5 g/dL LAB HEMETOLOGY METHOD 09/24/2024 10:37 AM [facility] Hematocrit 38.7(L) 42.0 - 54.0 % LAB HEMETOLOGY METHOD 09/24/2024 10:37 AM [facility] MCV 84.7 79.0 - 98.0 FL LAB HEMETOLOGY METHOD 09/24/2024 10:37 AM [facility] MCH 26.9(L) 27.0 - 32.0 pcg LAB HEMETOLOGY METHOD 09/24/2024 10:37 AM [facility] MCHC 31.8(L) 32.0 - 37.0 g/dL LAB HEMETOLOGY METHOD 09/24/2024 10:37 AM [facility] RDW 13.7 11.0 - 15.0 % LAB HEMETOLOGY METHOD 09/24/2024 10:37 AM [facility] Platelets 194 130 - 400 K/[facility] LAB HEMETOLOGY METHOD 09/24/2024 10:37 AM [facility] MPV 10.3 7.0 - 11.0 FL LAB HEMETOLOGY METHOD 09/24/2024 10:37 AM [facility] NRBC 0.2 <1.0 % LAB HEMETOLOGY METHOD 09/24/2024 10:37 AM [facility] NRBC Absolute 0.02 <0.10 K/[facility] LAB HEMETOLOGY METHOD 09/24/2024 10:37 AM [facility] Blood Venous blood specimen / Unknown Venipuncture / Unknown 09/24/2024 6:55 AM EST 09/24/2024 10:15 AM EST Kris Osorio MD LAB BLOOD ORDERABLES Final Res ult [facility] [address] [place] [address], documented in this encounter Visit Diagnoses Diagnosis Benign prostatic hyperplasia without lower urinary tract symptoms Vitamin D deficiency, unspecified Essential (primary) hypertension Unspecified essential hypertension documented in this encounter Care Teams Nodulizer Relationship Specialty Start Date End Date Farideh Garcia MD [address] [place] [address] [address] [place] [address] PCP - General Geriatric Medicine 09/16/24 documented as of this encounter
--- OUTSIDE RECORDS SUMMARY | 2025-05-08 11:05 | XMS_ITS | Encounter Summary ---
Author Organization [facility] Address [address] [place] [address] Care Team Providers Care Mixing Machine Tender Cork Rod Name Role Phone Farideh Garcia MD Primary Care Provider [phone] Encounter Details Date Type Department Care Team (Late st Contact Info) Description 12/15/2024 Lab Requisition [facility] - Main Lab 299 [facility] [place] [address] Farideh Garcia MD [address] [place] [address] Frequency of micturition Social History Tobacco Use [...] reflex microscopic (12/14/2024 1:00 PM EDT) Specific [place] Urine 1.020 1.003 - 1.030 LAB URINALYSIS - AUTOMATED METHOD 12/15/2024 12:12 PM EDT [facility] pH, Urine 8.0 5.0 - [...] 12:12 PM [facility] Bacteria, Urine Negative Negative /HPF LAB URINALYSIS - AUTOMATED METHOD 12/15/2024 12:12 PM EDT [facility] Hyaline Casts, Urine 0.0 0 - 3 /LPF LAB URINALYSIS - AUTOMATED METHOD 12/15/2024 12:12 PM EDT [facility] Urine Urine specimen from urethra / Unknown Non-blood Collection / Unknown 12/14/2024 1:00 PM EDT 12/15/2024 11:50 AM EDT us Farideh Garcia MD LAB URINE ORDERABLES Final Resul t [facility] [address] [place] [address], * (ABNORMAL) Culture urine (12/14/2024 1:00 PM EDT) Culture, Urine 10,000-49,000 CFU/mL Proteus mirabilis(A) SHANIA 12/19/2024 8:39 AM EDT [facility] Comment: Edited result: Previously reported as Proteus species on 12/18/2024 at 1125 EDT. Culture, Urine 10,000-49,000 CFU/mL Morganella morganii ssp morganii(A) SHANIA 12/19/2024 8:39 AM EDT [facility] Comment: The organism value for [...] MICROBIOLOGY - GENERAL ORDER ITZEL Final Result [facility] ([facility] [address] [place] [address], documented in this encounter Visit Diagnoses Diagnosis Frequency of micturition Urinary frequency documented in this encounter Care Teams Mixing Machine Tender Cork Rod Relationship Specialty Start Date End Date Farideh Garcia MD [address] [place] [address] [address] [place] [address] PCP - General Geriatric Medicine 09/16/24 documented as of this encounter
--- OUTSIDE RECORDS SUMMARY | 2025-05-08 11:05 | XMS_ITS | Encounter Summary ---
Author Organization [facility] Address [address] [place] [address] Care Team Providers Care Icer Machine Name Role Phone Farideh Garcia MD Primary Care Provider [phone] Encounter Details Date Type Department Care Team (Late st Contact Info) Description 02/06/2025 Lab Requisition [place] [facility] - Main Lab 299 [facility] [place] [address] Farideh Garcia MD [address] [place] [address] Weakness Social History Tobacco Use Types Packs/Day [...] LAB CHEMISTRY METHOD 02/06/2025 11:08 AM T [facility] Potassium 3.4(L) 3.5 - 5.5 mmol/L LAB CHEMISTRY METHOD 02/06/2025 11:08 AM T [facility] Chloride 103 96 - 110 mmol/L LAB CHEMISTRY METHOD 02/06/2025 11:08 AM [facility] CO2 31 21 - 32 mmol/L LAB CHEMISTRY METHOD 02/06/2025 11:08 AM [facility] Anion Gap 6 3 - 11 LAB CHEMISTRY METHOD 02/06/2025 11:08 AM [facility] Glucose 82 70 - 100 mg/dL LAB CHEMISTRY METHOD 02/06/2025 11:08 AM [facility] BUN 11 5 - 25 mg/dL LAB CHEMISTRY METHOD 02/06/2025 11:08 AM [facility] Creatinine 0.61(L) 0.70 - 1.30 mg/dL LAB CHEMISTRY METHOD 02/06/2025 11:08 AM [facility] eGFR 100 >=60 mL/min/1. 73m2 LAB CHEMISTRY METHOD 02/06/2025 11:08 AM [facility] Comment:Calculation based on the Chronic Kidney Disease Epidemiology Collaboration (CKD-EPI) equation refit without adjustment for race. BUN/Creatinine Ratio 18.0 LAB CHEMISTRY METHOD 02/06/2025 11:08 AM [facility] Calcium 8.5 8.5 - 10.5 mg/dL LAB CHEMISTRY METHOD 02/06/2025 11:08 AM [facility] Blood Venous blood specimen / Unknown Venipuncture / Unknown 02/06/2025 5:45 AM EDT 02/06/2025 9:25 AM EDT us Farideh Garcia MD LAB BLOOD ORDERABLES Final Resul t [facility] [address] [place] [address], * (ABNORMAL) Complete blood count (02/06/2025 5:45 AM EDT) WBC 7.5 4.8 - 10.8 K/mcL LAB HEMETOLOGY METHOD 02/06/2025 10:51 AM [facility] RBC 4.70 4.50 - 5.50 M/mcL LAB HEMETOLOGY METHOD 02/06/2025 10:51 AM [facility] Hemoglobin 12.5(L) 13.5 - 17.5 g/dL LAB HEMETOLOGY METHOD 02/06/2025 10:51 AM [facility] Hematocrit 39.9(L) 42.0 - 54.0 % LAB HEMETOLOGY METHOD 02/06/2025 10:51 AM [facility] MCV 84.2 79.0 - 98.0 FL LAB HEMETOLOGY METHOD 02/06/2025 10:51 AM [facility] MCH 26.4(L) 27.0 - 32.0 pcg LAB HEMETOLOGY METHOD 02/06/2025 10:51 AM [facility] MCHC 31.3(L) 32.0 - 37.0 g/dL LAB HEMETOLOGY METHOD 02/06/2025 10:51 AM [facility] RDW 15.2(H) 11.0 - 15.0 % LAB HEMETOLOGY METHOD 02/06/2025 10:51 AM [facility] Platelets 184 130 - 400 K/mcL LAB HEMETOLOGY METHOD 02/06/2025 10:51 AM [facility] MPV 9.8 7.0 - 11.0 FL LAB HEMETOLOGY METHOD 02/06/2025 10:51 AM [facility] NRBC 0.0 <1.0 % LAB HEMETOLOGY METHOD 02/06/2025 10:51 AM [facility] NRBC Absolute 0.00 <0.10 K/mcL LAB HEMETOLOGY METHOD 02/06/2025 10:51 AM [facility] Blood Venous blood specimen / Unknown Venipuncture / Unknown 02/06/2025 5:45 AM EDT 02/06/2025 9:25 AM EDT Farideh Garcia MD LAB BLOOD ORDERABLES Final Resul t [facility] ([facility]) [facility] [address] [place] [address], documented in this encounter Visit Diagnoses Diagnosis Weakness Other malaise and fatigue documented in this encounter Care Teams Icer Machine Relationship Specialty Start Date End Date Farideh Garcia MD [address] [place] [address] [address] [place] [address] PCP - General Geriatric Medicine 09/16/24 documented as of this encounter
--- OUTSIDE RECORDS SUMMARY | 2025-05-08 11:05 | XMS_ITS | Encounter Summary ---
Author Organization [facility] Address [address] [place] [address] Care Team Providers Care Career Services Director Name Role Phone Farideh Garcia MD Primary Care Provider [phone] Encounter Details Date Type Department Care Team (Late st Contact Info) Description 12/11/2024 Lab Requisition [facility] - Main Lab [address] [facility] [place] [address] Farideh Garcia MD [address] [place] [address] Dysuria Social History Tobacco Use Types Packs/Day [...] recollection if clinically indicated. 12/12/2024 10:31 AM [facility] Urine Urine specimen obtained by clean catch procedure / Unknown 12/10/2024 3:10 PM EDT 12/11/2024 9:03 AM EDT us Farideh Garcia MD LAB MICROBIOLOGY - GENERAL ORDER ITZEL Final Result [facility] [address] [place] [address], [place] [phone] * (ABNORMAL) Urinalysis with reflex microscopic and culture (12/10/2024 3:10 PM EDT) Specific [place] Urine 1.020 1.003 - 1.030 LAB URINALYSIS - AUTOMATED METHOD 12/11/2024 9:03 AM [facility] pH, Urine 7.0 5.0 - 8.0 pH LAB URINALYSIS - AUTOMATED METHOD 12/11/2024 9:03 AM [facility] Leukocytes, Urine Trace(A) Negative LAB URINALYSIS - AUTOMATED METHOD 12/11/2024 9:03 AM [facility] Nitrite, Urine Positive(A) Negative LAB URINALYSIS - AUTOMATED METHOD 12/11/2024 9:03 AM [facility] Protein, Urine Negative <=Trace mg/dL LAB URINALYSIS - AUTOMATED METHOD 12/11/2024 9:03 AM [facility] Glucose, Urine Negative Negative mg/dL LAB URINALYSIS - AUTOMATED METHOD 12/11/2024 9:03 AM [facility] Ketones, Urine Negative Negative mg/dL LAB URINALYSIS - AUTOMATED METHOD 12/11/2024 9:03 AM [facility] Urobilinogen , Urine 0.2 0.2 - 1.0 mg/dL LAB URINALYSIS - AUTOMATED METHOD 12/11/2024 9:03 AM [facility] Bilirubin, Urine Negative Negative LAB URINALYSIS - AUTOMATED METHOD 12/11/2024 9:03 AM EDT [facility] Blood, Urine Negative Negative LAB URINALYSIS - AUTOMATED METHOD 12/11/2024 9:03 AM [facility] RBC, Urine 7.0(H) 0 - 4 /HPF LAB URINALYSIS - AUTOMATED METHOD 12/11/2024 9:03 AM [facility] WBC, Urine 3.8 0 - 4 /HPF LAB URINALYSIS - AUTOMATED METHOD 12/11/2024 9:03 AM [facility] Squamous Epithelial, Urine 67(H) 0 - 60 /LPF LAB URINALYSIS - AUTOMATED METHOD 12/11/2024 9:03 AM [facility] Bacteria, Urine Many(A) Negative /HPF LAB URINALYSIS - AUTOMATED METHOD 12/11/2024 9:03 AM [facility] Hyaline Casts, Urine 2.0 0 - 3 /LPF LAB URINALYSIS - AUTOMATED METHOD 12/11/2024 9:03 AM [facility] Urine Urine specimen obtained by clean catch procedure / Unknown 12/10/2024 3:10 PM EDT 12/11/2024 8:32 AM EDT us Farideh Garcia MD LAB URINE ORDERABLES Final Resul t [facility] [address] [place] [address], * Kumari urine culture tube (12/10/2024 3:10 PM EDT) Extra Tube Hold for add-ons. 12/11/2024 10:01 AM EDT [facility] Comment:Auto resulted. Urine Urine specimen obtained by clean catch procedure / Unknown 12/10/2024 3:10 PM EDT 12/11/2024 8:32 AM EDT us Farideh Garcia MD LAB URINE ORDERABLES Final Resul t [facility] ([facility]) [facility] [address] [place] [address], documented in this encounter Visit Diagnoses Diagnosis Dysuria documented in this encounter Care Teams Career Services Director Relationship Specialty Start Date End Date Farideh Garcia MD [address] [place] [address] [address] [place] [address] PCP - General Geriatric Medicine 09/16/24 documented as of this encounter
--- OUTSIDE RECORDS SUMMARY | 2025-05-08 11:05 | XMS_ITS | Clinical Summary ---
Author Organization 299 [facility] Address [address] [place] [address] Phone Care Team Providers Care Sql Etl Developer Name Role Phone Farideh Garcia MD Primary Care Provider [phone] Encounters Date Type Department Care Team Description 02/06/2025 Lab Requisition [facility] - Main Lab [address] [place] [address] Farideh Garcia MD Weakness from [...] K/mcL LAB HEMETOLOGY METHOD 02/06/2025 10:51 AM [facility] RBC 4.70 4.50 - 5.50 M/mcL LAB HEMETOLOGY METHOD 02/06/2025 10:51 AM [facility] Hemoglobin 12.5(L) 13.5 - 17.5 g/dL LAB HEMETOLOGY METHOD 02/06/2025 10:51 AM [facility] Hematocrit 39.9(L) 42.0 - 54.0 % LAB HEMETOLOGY METHOD 02/06/2025 10:51 AM [facility] MCV 84.2 79.0 - 98.0 FL LAB HEMETOLOGY METHOD 02/06/2025 10:51 AM [facility] MCH 26.4(L) 27.0 - 32.0 pcg LAB HEMETOLOGY METHOD 02/06/2025 10:51 AM EDT [facility] MCHC 31.3(L) 32.0 - 37.0 g/dL LAB HEMETOLOGY METHOD 02/06/2025 10:51 AM EDT [facility] RDW 15.2(H) 11.0 - 15.0 % LAB HEMETOLOGY METHOD 02/06/2025 10:51 AM EDT [facility] Platelets 184 130 - 400 K/mcL LAB HEMETOLOGY METHOD 02/06/2025 10:51 AM EDT [facility] MPV 9.8 7.0 - 11.0 FL LAB HEMETOLOGY METHOD 02/06/2025 10:51 AM EDT [facility] NRBC 0.0 <1.0 % LAB HEMETOLOGY METHOD 02/06/2025 10:51 AM EDT [facility] NRBC Absolute 0.00 <0.10 K/mcL LAB HEMETOLOGY METHOD 02/06/2025 10:51 AM T [facility] Blood Venous blood specimen / Unknown Venipuncture / Unknown 02/06/2025 5:45 AM EDT 02/06/2025 9:25 AM EDT us Farideh Garcia MD LAB BLOOD ORDERABLES Final Resul t [facility] [address] [place] [address], * (ABNORMAL) Basic metabolic panel (02/06/2025 5:45 AM EDT) Sodium 140 133 - 145 mmol/L LAB CHEMISTRY METHOD 02/06/2025 11:08 AM EDT [facility] Potassium 3.4(L) 3.5 - 5.5 mmol/L LAB CHEMISTRY METHOD 02/06/2025 11:08 AM EDT [facility] Chloride 103 96 - 110 mmol/L LAB CHEMISTRY METHOD 02/06/2025 11:08 AM [facility] CO2 31 21 - 32 mmol/L LAB CHEMISTRY METHOD 02/06/2025 11:08 AM [facility] Anion Gap 6 3 - 11 LAB CHEMISTRY METHOD 02/06/2025 11:08 AM [facility] Glucose 82 70 - 100 mg/dL LAB CHEMISTRY METHOD 02/06/2025 11:08 AM [facility] BUN 11 5 - 25 mg/dL LAB CHEMISTRY METHOD 02/06/2025 11:08 AM [facility] Creatinine 0.61(L) 0.70 - 1.30 mg/dL LAB CHEMISTRY METHOD 02/06/2025 11:08 AM [facility] eGFR 100 >=60 mL/min/1. 73m2 LAB CHEMISTRY METHOD 02/06/2025 11:08 AM [facility] Comment:Calculation based on the Chronic Kidney Disease Epidemiology Collaboration (CKD-EPI) equation refit without adjustment for race. BUN/Creatinine Ratio 18.0 LAB CHEMISTRY METHOD 02/06/2025 11:08 AM [facility] Calcium 8.5 8.5 - 10.5 mg/dL LAB CHEMISTRY METHOD 02/06/2025 11:08 AM [facility] Blood Venous blood specimen / Unknown Venipuncture / Unknown 02/06/2025 5:45 AM EDT 02/06/2025 9:25 AM EDT us Farideh Garcia MD LAB BLOOD ORDERABLES Final Resul t [facility] [address] [place] [address], [place] [phone] from Last 3 Months Insurance MEDICARE MEDICAID - [place] Care Teams Sql Etl Developer Relationship Specialty Start Date End Date Farideh Garcia MD [address] [place] [address] [address] [place] [address] PCP - General Geriatric Medicine 09/16/24
--- OUTSIDE RECORDS SUMMARY | 2025-05-08 11:05 | XMS_ITS | Encounter Summary ---
Author [facility] Address [address] [place] [address] Care Team Providers Care Rod Cup Filler Name Role Phone Farideh Garcia MD Primary Care Provider Encounter Details Date Type Department Care Team (Late st Contact Info) Description 12/15/2024 Lab Requisition [facility] - Main Lab 299 [facility] [place] [address] Farideh Garcia MD [address] [place] [address] Benign prostatic hyperplasia with lower urinary tract [...] LAB CHEMISTRY METHOD 12/15/2024 12:44 PM EDT [facility] Blood Venous blood specimen / Unknown Venipuncture / Unknown 12/15/2024 5:57 AM EDT 12/15/2024 11:52 AM EDT Narrative [facility] - 12/15/2024 12:44 PM EDT The Siemens Advia Centaur Chemiluminescent Immunoassay is used. Results obtained with different assay methods or kits cannot be used interchangeably. Results cannot be interpreted as absolute evidence of the presence or absence of malignant disease. us Farideh Garcia MD LAB BLOOD ORDERABLES Final Resul t [facility] ([facility]) [facility] [address] [place] [address], documented in this encounter Visit Diagnoses Diagnosis Benign prostatic hyperplasia with lower urinary tract symptoms documented in this encounter Care Teams Rod Cup Filler Relationship Specialty Start Date End Date Farideh Garcia MD [address] [place] [address] [address] [place] [address] PCP - General Geriatric Medicine 09/16/24 documented as of this encounter
--- OUTSIDE RECORDS SUMMARY | 2025-05-08 11:05 | XMS_ITS | Encounter Summary ---
Author Organization [facility] Address [address] [place] [address] Care Team Providers Care Employment Trainer Name Role Phone Farideh Garcia MD Primary Care Provider [phone] Encounter Details Date Type Department Care Team (Late st Contact Info) Description 10/21/2024 Lab Requisition [facility] - Main Lab 299 [facility] [place] [address] Farideh Garcia MD [address] [place] [address] Vitamin D deficiency, unspecified Social History Tobacco [...] LAB CHEMISTRY METHOD 10/22/2024 12:24 PM EST [facility] ([facility]) [facility] Blood Venous blood specimen / Unknown Venipuncture / Unknown 10/22/2024 5:45 AM EST 10/22/2024 11:10 AM EST us Farideh Garcia MD LAB BLOOD ORDERABLES Final Resul t [facility] ([facility] H[facility]PITAL LAB [address] [place] [address], documented in this encounter Visit Diagnoses Diagnosis Vitamin D deficiency, unspecified documented in this encounter Care Teams Employment Trainer Relationship Specialty Start Date End Date Farideh Garcia MD [address] [place] [address] [address] [place] [address] PCP - General Geriatric Medicine 09/16/24 documented as of this encounter
== END 2025-05-08 10:30 | disposition home or self-care (01) ==
LOC: HO.MRI 10:29
PROVIDERS: PCP Internal Medicine; Visit Provider Internal Medicine Critical Care Medicine
DX: N28.9 Disorder of kidney and ureter, unspecified (principal); E27.9 Disorder of adrenal gland, unspecified
CPT/HCPCS: 74183; A9585

== ENCOUNTER 2025-05-13 12:57 | Outpatient (AMB) | payer MEDICARE, MEDICAID, SELFPAY ==
--- NOTE | 2025-05-13 13:05 | MHC.OFFVIS ---
Vital Signs 05/13/25 13:10 BMI Reason not done Patient refused/unable BP 132/72 Blood Pressure Location Lt brachial Position Sitting Pulse 73 Pulse Source Pulse Oximeter Pulse Oximetry (%) 94 Oxygen Delivery Method Room Air Intake Visit Reasons: Disorder of adrenal gland, unspecified Intake Note: New patient internally referred by PCP for Disorder of Adrenal Gland. Shoe Associate Required: Yes Shoe Associate Language: Shuttleless Loom Weaver Services: Shoe Associate Present Shoe Associate Name: [facility] Information Interpreted: non-clinical & clinical Accompanied by: Staff, Cheri Allergies Penicillins Allergy (Severe, Verified 05/13/25 13:12) Rash tramadol Allergy (Unknown, Verified 05/13/25 13:12) inadequate response Medication List - Last Reconciled 05/13/25 by Marek Solorio MD acetaminophen 1,000 mg (2 x 500 mg) PO TID 30 days amlodipine 5 mg PO DAILY 90 days baclofen 20 mg PO TID PRN 90 days chlorhexidine gluconate 0.12% (Periogard) 15 mL buccal DAILY ciprofloxacin HCl 500 mg PO BID 10 days dexamethasone 1 mg PO ONCE diclofenac sodium 1% 4 grams topical QID docusate sodium (Colace) 200 mg (2 x 100 mg) PO BID duloxetine 30 mg PO BID 30 days finasteride 5 mg PO BEDTIME 90 days fluticasone propionate 50 mcg/actuation sprays intranasal guaifenesin 400 mg PO Q6H PRN magnesium oxide 400 mg PO DAILY 90 days mirtazapine 7.5 mg (1/2 x 15 mg) PO BEDTIME nitrofurantoin macrocrystal 100 mg PO BID 7 days oxycodone 5 mg PO Q8H PRN 30 days pantoprazole 40 mg PO BID PRN polyvinyl alcohol 1.4% drps ophthalmic (eye) DAILY PRN pregabalin 75 mg PO TID 30 days sennosides (senna) 8.6 mg PO BEDTIME 90 days terazosin 8 mg (4 x 2 mg) PO BEDTIME 90 days HPI Comments Details: 74 YO M who is seen in consultation at the request of PCP for adrenal incidentaloma. Present since 2010. Pt is poor historian accompanied by aid Had MRIabdomen/pelvis date for which revealed as below . Prior CT dated []revealed. No history of spells with headache, flushing, diaphoresis, abdominal pain or diarrhea. Denies any weight gain, frequent infections, easy bruisability, development of violaceous striae. History of HTN, controlled on 1 agents. No history of anticoagulant use. Has any weight loss of 10 lbs , orthostatic symptoms, hypoglycemia. No history of malignancy or TB. Imaging: There is a 2.1 cm right adrenal mass. This demonstrates diffuse loss of signal intensity on opposed phase imaging, consistent with an adenoma. It is also unchanged in size from the prior CT scan. The left adrenal gland is unremarkable..present since 2010 Labs: [facility] Medical History Hx of varicose veins Depression COVID-19 Numbness HTN (hypertension) Spastic hemiparesis of left dominant side Spastic hemiplegia affecting right dominant side Spastic hemiparesis affecting dominant side Contracture, left hand Bilateral knee contractures Elevated PSA Moderate major depression Insomnia Fibromyalgia GERD (gastroesophageal reflux disease) Hypovitaminosis D Lumbar degenerative disc disease Surgical History Hx of varicose vein ligation and stripping History of prostate surgery History of shoulder surgery History of laminectomy Family History Father Diabetes Hypertension Liver cancer Mother Diabetes Hypertension Stroke Other Substance use disorder Social History Housing: House Are you a primary director long term care to a significant other at home: No Do you presently have visiting nurse or other home services: No Alcohol intake: former Patient Tobacco Use Status: Former Tobacco user Cigarettes Per Day: 3 e-Cigarette/Vaping Use: Never Used Second Hand Smoke Exposure: No Advance Directives Date on File: 09/06/22 service: No Current occupational status: disabled Cognitive needs: Yes (cane) Hearing needs: No Vision needs: Yes (reading glasses) Physical Exam Const Other: Absence of cushingoid features. Thyroid gland is normal size weighs about 15 g . No thyroid nodules palpated Assessment & Plan Assessment & Plan (1) Adrenal nodule: Code(s): E27.9 - Disorder of adrenal gland, unspecified Category: Medical Plan: This is a 74-year-old male found to have an incidental right adrenal mass which appears to have benign characteristics on MRI. Rule out hypersecretion of adrenal hormones In the plan is to check for hypersecretion of adrenal hormones including checking a renin, aldosterone, plasma metanephrines. We will also perform a 1 mg dexamethasone suppression test with dexamethasone and cortisol level. If mass is found to be non secreting, it can be followed Orders: Orders Renin Today E27.9 - Disorder of adrenal gland, unspecified Catecholamines, Frac., Plasma Today E27.9 - Disorder of adrenal gland, unspecified Aldosterone Today E27.9 - Disorder of adrenal gland, unspecified Cortisol Random 1 Week E27.9 - Disorder of adrenal gland, unspecified Dexamethasone 1 Week E27.9 - Disorder of adrenal gland, unspecified DHEA Sulfate Today E27.9 - Disorder of adrenal gland, unspecified Medications: New dexamethasone 1 mg PO ONCE 1 tab 0RF Coding Level of Care Code New Pt Level 4 (29199) Diagnoses Adrenal nodule E27.9
[2025-05-13 13:10] VITALS: BP 132/72; PULSE 73; O2SAT 94
--- OUTSIDE RECORDS SUMMARY | 2025-05-13 15:25 | XMS_ITS | Encounter Summary ---
Author Organization [facility] Address [address] [place] [address] Care Team Providers Care Platen Drier Operator Name Role Phone Farideh Garcia MD Primary Care Provider [phone] Encounter Details Date Type Department Care Team (Late st Contact Info) Description 08/21/2024 Lab Requisition [facility] - Main Lab [address] [place] [address] Kris Osorio MD [address] [place] [address] Essential (primary) hypertension Social History Tobacco Use [...] mmol/L LAB CHEMISTRY METHOD 08/22/2024 10:42 AM [facility] LAB Anion Gap 6 3 - 11 LAB CHEMISTRY METHOD 08/22/2024 10:42 AM [facility] LAB Glucose 124(H) 70 - 100 mg/dL LAB CHEMISTRY METHOD 08/22/2024 10:42 AM [facility] LAB BUN 16 5 - 25 mg/dL LAB CHEMISTRY METHOD 08/22/2024 10:42 AM [facility] LAB Creatinine 0.61(L) 0.70 - 1.30 mg/dL LAB CHEMISTRY METHOD 08/22/2024 10:42 AM [facility] LAB eGFR 100 >=60 mL/min/1. 73m2 LAB CHEMISTRY METHOD 08/22/2024 10:42 AM [facility] LAB Comment:Calculation based on the Chronic Kidney Disease Epidemiology Collaboration (CKD-EPI) equation refit without adjustment for race. BUN/Creatinine Ratio 26.2 LAB CHEMISTRY METHOD 08/22/2024 10:42 AM [facility] LAB Calcium 8.4(L) 8.5 - 10.5 mg/dL LAB CHEMISTRY METHOD 08/22/2024 10:42 AM [facility] LAB Blood Venous blood specimen / Unknown Venipuncture / Unknown 08/22/2024 5:29 AM EST 08/22/2024 10:05 AM EST us Kris Osorio MD LAB BLOOD ORDERABLES Final Res ult [facility] LAB [address] [place] [address], documented in this encounter Visit Diagnoses Diagnosis Essential (primary) hypertension Unspecified essential hypertension documented in this encounter Additional Health Concerns Infection Onset Date Last Indicated Resolved Time Respiratory Rule-Out 09/16/2024 09/15/2024 025 12:35 PM EST documented as of this encounter Care Teams Platen Drier Operator Relationship Specialty Start Date End Date Farideh Garcia MD [address] [facility] [address] [place] [address] PCP - General Geriatric Medicine 09/16/24 documented as of this encounter
--- OUTSIDE RECORDS SUMMARY | 2025-05-13 15:25 | XMS_ITS | Encounter Summary ---
Author Organization [facility] Address [address] [place] [address] Care Team Providers Care Waitress Name Role Phone Farideh Garcia MD Primary Care Provider [phone] Encounter Details Date Type Department Care Team (Late st Contact Info) Description 10/21/2024 Lab Requisition [facility] - Main Lab 299 [facility] [place] [address] Farideh Garcia MD [address] [place] [address] Vitamin D deficiency, unspecified Social History Tobacco [...] LAB CHEMISTRY METHOD 10/22/2024 12:24 PM EST [facility] LAB Blood Venous blood specimen / Unknown Venipuncture / Unknown 10/22/2024 5:45 AM EST 10/22/2024 11:10 AM EST us Farideh Garcia MD LAB BLOOD ORDERABLES Final Resul t [facility] H[facility] LAB [address] [place] [address], documented in this encounter Visit Diagnoses Diagnosis Vitamin D deficiency, unspecified documented in this encounter Care Teams Waitress Relationship Specialty Start Date End Date Farideh Garcia MD [address] [place] [address] [address] [place] [address] PCP - General Geriatric Medicine 09/16/24 documented as of this encounter
--- OUTSIDE RECORDS SUMMARY | 2025-05-13 15:25 | XMS_ITS | Encounter Summary ---
Author Organization [facility] Address [address] [place] [address] Care Team Providers Care Pre School Teacher Name Role Phone Farideh Garcia MD Primary Care Provider [phone] Encounter Details Date Type Department Care Team (Late st Contact Info) Description 12/11/2024 Lab Requisition [facility] - Main Lab [address] [facility] [place] [address] Farideh Garcia MD [address] [place] [address] Dysuria Social History Tobacco Use Types Packs/Day [...] Final Result [facility] LAB [address] [place] [address], [place] [phone] * (ABNORMAL) Urinalysis with reflex microscopic and culture (12/10/2024 3:10 PM EDT) Specific [place] Urine 1.020 1.003 - 1.030 LAB URINALYSIS [...] Resul t [facility] [address] [place] [address], * Kumari urine culture tube (12/10/2024 3:10 PM EDT) Extra Tube Hold for add-ons. 12/11/2024 10:01 AM EDT [facility] LAB Comment:Auto resulted. Urine Urine specimen obtained by clean catch procedure / Unknown 12/10/2024 3:10 PM EDT 12/11/2024 8:32 AM EDT us Farideh Garcia MD LAB URINE ORDERABLES Final Resul t [facility] ([facility] LAB [address] [place] [address], documented in this encounter Visit Diagnoses Diagnosis Dysuria documented in this encounter Care Teams Pre School Teacher Relationship Specialty Start Date End Date Farideh Garica MD [address] [place] [address] [address] [place] [address] PCP - General Geriatric Medicine 09/16/24 documented as of this encounter
--- OUTSIDE RECORDS SUMMARY | 2025-05-13 15:25 | XMS_ITS | Encounter Summary ---
Author Organization [facility] Address [address] [place] [address] Care Team Providers Care Skirt Maker Name Role Phone Farideh Garcia MD Primary Care Provider [phone] Encounter Details Date Type Department Care Team (Late st Contact Info) Description 12/15/2024 Lab Requisition [facility] - Main Lab [address] [facility] [place] [address] Farideh Garcia MD [address] [place] [address] Frequency of micturition Social History Tobacco Use [...] reflex microscopic (12/14/2024 1:00 PM EDT) Specific [place] Urine 1.020 1.003 - 1.030 LAB URINALYSIS - AUTOMATED METHOD 12/15/2024 12:[address] [facility] LAB pH, Urine 8.0 5.0 - 8.0 pH LAB URINALYSIS - AUTOMATED METHOD 12/15/2024 12:12 PM [facility] Leukocytes, Urine Trace(A) Negative LAB URINALYSIS - AUTOMATED METHOD 12/15/2024 12:12 PM [facility] Nitrite, Urine Negative Negative LAB URINALYSIS - AUTOMATED METHOD 12/15/2024 12:12 PM [facility] Protein, Urine Trace <=Trace mg/dL LAB URINALYSIS - AUTOMATED METHOD 12/15/2024 12:12 PM [facility] Glucose, Urine Negative Negative mg/dL LAB URINALYSIS - AUTOMATED METHOD 12/15/2024 12:12 PM [facility] Ketones, Urine Trace(A) Negative mg/dL LAB URINALYSIS - AUTOMATED METHOD 12/15/2024 12:12 PM [facility] Urobilinogen, Urine 2.0(A) 0.2 - 1.0 mg/dL LAB URINALYSIS - AUTOMATED METHOD 12/15/2024 12:12 PM [facility] Bilirubin, Urine Negative Negative LAB URINALYSIS - AUTOMATED METHOD 12/15/2024 12:12 PM [facility] Blood, Urine Negative Negative LAB URINALYSIS - AUTOMATED METHOD 12/15/2024 12:12 PM [facility] RBC, Urine 4.8(H) 0 - 4 /HPF LAB URINALYSIS - AUTOMATED METHOD 12/15/2024 12:12 PM [facility] WBC, Urine 0.9 0 - 4 /HPF LAB URINALYSIS - AUTOMATED METHOD 12/15/2024 12:12 PM [facility] Squamous Epithelial, Urine 15 0 - 60 /LPF LAB URINALYSIS - AUTOMATED METHOD 12/15/2024 12:12 PM [facility] Bacteria, Urine Negative Negative /HPF LAB URINALYSIS - AUTOMATED METHOD 12/15/2024 12:[address] [facility] Hyaline Casts, Urine 0.0 0 - 3 /LPF LAB URINALYSIS - AUTOMATED METHOD 12/15/2024 12:[address] [facility] Urine Urine specimen from urethra / Unknown Non-blood Collection / Unknown 12/14/2024 1:00 PM EDT 12/15/2024 11:50 AM EDT us Farideh Garcia MD LAB URINE ORDERABLES Final Resul t [facility] [address] [place] [address], * (ABNORMAL) Culture urine (12/14/2024 1:00 PM EDT) Culture, Urine 10,000-49,000 CFU/mL Proteus mirabilis(A) SHANIA 12/19/2024 8:[address] [facility] Comment: Edited result: Previously reported as Proteus species on 12/18/2024 at 1125 EDT. Culture, Urine 10,000-49,000 CFU/mL Morganella morganii ssp morganii(A) SHANIA 12/19/2024 8:[address] [facility] Comment: The organism value for [...] MICROBIOLOGY - GENERAL ORDER ITZEL Final Result [facility] ([facility]) [facility] [address] [place] [address], documented in this encounter Visit Diagnoses Diagnosis Frequency of micturition Urinary frequency documented in this encounter Care Teams Skirt Maker Relationship Specialty Start Date End Date Farideh Garcia MD [address] [place] [address] [address] [place] [address] PCP - General Geriatric Medicine 09/16/24 documented as of this encounter
--- OUTSIDE RECORDS SUMMARY | 2025-05-13 15:25 | XMS_ITS | Encounter Summary ---
Author [facility] Address [address] [place] [address] Care Team Providers Care Court Magistrate Name Role Phone Farideh Garcia MD Primary Care Provider [phone] Encounter Details Date Type Department Care Team (Late st Contact Info) Description 02/06/2025 Lab Requisition [facility] - Main Lab [address] [facility] [place] [address] Farideh Garcia MD [address] [place] [address] Weakness Social History Tobacco Use Types Packs/Day [...] LAB CHEMISTRY METHOD 02/06/2025 11:08 AM T [facility] LAB Potassium 3.4(L) 3.5 - 5.5 mmol/L LAB CHEMISTRY METHOD 02/06/2025 11:08 AM T [facility] LAB Chloride 103 96 - 110 [...] t [facility] [address] [place] [address], * (ABNORMAL) Complete blood count (02/06/2025 5:45 [...] MD LAB BLOOD ORDERABLES Final Resul t [facility] [address] [place] [address], documented in this encounter Visit Diagnoses Diagnosis Weakness Other malaise and fatigue documented in this encounter Care Teams Court Magistrate Relationship Specialty Start Date End Date Farideh Garcia MD [address] [place] [address] [address] [place] [address] PCP - General Geriatric Medicine 09/16/24 documented as of this encounter
--- OUTSIDE RECORDS SUMMARY | 2025-05-13 15:25 | XMS_ITS | Clinical Summary ---
Author Organization 299 [facility] Address [address] [place] [address] Phone Care Team Providers Care Career Services Coordinator Name Role Phone Farideh Garcia MD Primary Care Provider [phone] Social History Tobacco Use Types Packs/Day Years [...] mmol/L LAB CHEMISTRY METHOD 02/06/2025 11:08 AM [facility] Potassium 3.4(L) 3.5 - 5.5 mmol/L LAB CHEMISTRY METHOD 02/06/2025 11:08 AM [facility] Chloride 103 96 - 110 mmol/L LAB CHEMISTRY METHOD 02/06/2025 11:08 AM [facility] CO2 31 21 - 32 mmol/L LAB CHEMISTRY METHOD 02/06/2025 11:08 AM [facility] Anion Gap 6 3 - 11 LAB CHEMISTRY METHOD 02/06/2025 11:08 AM [facility] Glucose 82 70 - 100 mg/dL LAB CHEMISTRY METHOD 02/06/2025 11:08 AM [facility] BUN 11 5 - 25 mg/dL LAB CHEMISTRY METHOD 02/06/2025 11:08 AM [facility] Creatinine 0.61(L) 0.70 - 1.30 mg/dL LAB CHEMISTRY METHOD 02/06/2025 11:08 AM [facility] eGFR 100 >=60 mL/min/1. 73m2 LAB CHEMISTRY METHOD 02/06/2025 11:[address] [facility] Comment:Calculation based on the Chronic Kidney Disease Epidemiology Collaboration (CKD-EPI) equation refit without adjustment for race. BUN/Creatinine Ratio 18.0 LAB CHEMISTRY METHOD 02/06/2025 11:[address] [facility] Calcium 8.5 8.5 - 10.5 mg/dL LAB CHEMISTRY METHOD 02/06/2025 11:[address] [facility] Blood Venous blood specimen / Unknown Venipuncture / Unknown 02/06/2025 5:45 AM EDT 02/06/2025 9:25 AM EDT us Farideh Garcia MD LAB BLOOD ORDERABLES Final Resul t [facility] [address] [place] [address], from Last 3 Months or Most Recently Relevant to Health Maintenance Insurance MEDICARE MEDICAID - [place] Care Teams Career Services Coordinator Relationship Specialty Start Date End Date Farideh Garcia MD [address] [place] [address] [address] [place] [address] PCP - General Geriatric Medicine 09/16/24
--- OUTSIDE RECORDS SUMMARY | 2025-05-13 15:25 | XMS_ITS | Encounter Summary ---
Author Organization [employer] Address [address] [place] [address] Care Team Providers Care Steam Turbine Operator Name Role Phone Farideh Garcia MD Primary Care Provider [phone] Encounter Details Date Type Department Care Team (Late st Contact Info) Description 09/23/2024 Lab Requisition [facility] - Main Lab 299 [facility] [place] [address] Kris Osorio MD [address] [place] [address] Benign prostatic hyperplasia without lower urinary tract [...] LAB CHEMISTRY METHOD 09/24/2024 11:13 AM EST [facility] Blood Venous blood specimen / Unknown Venipuncture / Unknown 09/24/2024 6:55 AM EST 09/24/2024 10:15 AM EST Kris Osorio MD LAB BLOOD ORDERABLES Final Res ult Performing Organization Address [facility]/ZIP Co de Phone Number [facility] [address] [place] [address], * Magnesium (09/24/2024 6:55 AM EST) Pathologist [facility] Magnesium 2.3 1.9 - 2.6 mg/dL LAB CHEMISTRY METHOD 09/24/2024 11:04 AM EST [facility] Blood Venous blood specimen / Unknown Venipuncture / Unknown 09/24/2024 6:55 AM EST 09/24/2024 10:15 AM EST Kris Osorio MD LAB BLOOD ORDERABLES Final Res ult [facility] [address] [place] [address], * (ABNORMAL) Folate (09/24/2024 6:55 AM EST) Pathologist [facility] Folate >20.0(H) 2.8 - 17.0 ng/ml LAB CHEMISTRY METHOD 09/24/2024 11:15 AM EST [facility] Blood Venous blood specimen / Unknown Venipuncture / Unknown 09/24/2024 6:55 AM EST 09/24/2024 10:15 AM EST Kris Osorio MD LAB BLOOD ORDERABLES Final Res ult [facility] [address] [place] [address], [place] [phone] * (ABNORMAL) Comprehensive metabolic panel (09/24/2024 6:55 [...] MD LAB BLOOD ORDERABLES Final Res ult [facility] [address] [place] [address], * (ABNORMAL) Complete blood count (09/24/2024 6:55 AM EST) WBC 8.9 4.8 - 10.8 K/mcL LAB HEMETOLOGY METHOD 09/24/2024 10:37 AM [facility] RBC 4.60 4.50 [...] CENTER LAB Platelets 194 130 - 400 K/[facility] LAB HEMETOLOGY METHOD 09/24/2024 10:37 AM [facility] LAB MPV 10.3 7.0 - 11.0 FL LAB HEMETOLOGY METHOD 09/24/2024 10:37 AM [facility] LAB NRBC 0.2 <1.0 % LAB HEMETOLOGY METHOD 09/24/2024 10:37 AM [facility] LAB NRBC Absolute 0.02 <0.10 K/[facility] LAB HEMETOLOGY METHOD 09/24/2024 10:37 AM [facility] Blood Venous blood specimen / Unknown Venipuncture / Unknown 09/24/2024 6:55 AM EST 09/24/2024 10:15 AM EST Kris Osorio MD LAB BLOOD ORDERABLES Final Res ult [facility] LAB [address] [place] [address], documented in this encounter Visit Diagnoses Diagnosis Benign prostatic hyperplasia without lower urinary tract symptoms Vitamin D deficiency, unspecified Essential (primary) hypertension Unspecified essential hypertension documented in this encounter Care Teams Steam Turbine Operator Relationship Specialty Start Date End Date Farideh Garcia MD [address] [place] [address] [address] [place] [address] PCP - General Geriatric Medicine 09/16/24 documented as of this encounter
--- OUTSIDE RECORDS SUMMARY | 2025-05-13 15:25 | XMS_ITS | Encounter Summary ---
Author Organization [facility] Address [address] [place] [address] Care Team Providers Care Director Clinical Applications Name Role Phone Farideh Garcia MD Primary Care Provider [phone] Encounter Details Date Type Department Care Team (Late st Contact Info) Description 09/16/2024 Lab Requisition [facility] - Main Lab 299 [facility] [place] [address] Farideh Garcia MD [address] [place] [address] Shortness of breath; Acute cough Social History [...] Procedure Name Priority Date/Time Associated Diagnosis Comments [id number], RSV, FLU A AND B QUALITATIVE RT-PCR, LOCAL REFERENCE LAB Routine 09/15/2024 12:00 PM EST Shortness of breath Acute cough documented in this encounter Results * [id number], RSV, Influenza A and B qualitative RT-PCR (09/15/2024 12:00 PM EST) SARS COV-2 Not Detected Not Detected LAB MOLECULAR DIAGNOSTICS METHOD 09/16/2024 12:35 PM EST [facility] Comment: Disclaimer: The manner in which this information is used to guide patient care is the responsibility of the healthcare provider. Testing was performed using the [employer] m SARS-CoV-2 test. This test has been [...] for Healthcare Providers can be found at: https://www.fda.gov/media/465505/download Fact sheet for Patients can be found at: https://www.fda.gov/media/487917/download Influenza A PCR Not Detected Not Detected LAB MOLECULAR DIAGNOSTICS METHOD 09/16/2024 12:35 PM EST [facility] Influenza B PCR Not Detected Not Detected LAB MOLECULAR DIAGNOSTICS METHOD 09/16/2024 12:35 PM [facility] RSV PCR Not Detected Not Detected LAB MOLECULAR DIAGNOSTICS METHOD 09/16/2024 12:35 PM [facility] Swab Nasopharyngeal structure / Unknown 09/15/2024 12:00 PM EST 09/16/2024 9:43 AM EST Farideh Garcia MD LAB MICROBIOLOGY - GENERAL ORDER ITZEL Final Result [facility] [address] [place] [address], documented in this encounter Visit Diagnoses Diagnosis Shortness of breath Acute cough documented in this encounter Additional Health Concerns Infection Onset Date Last Indicated Resolved Time Respiratory Rule-Out 09/16/2024 09/15/2024 025 12:35 PM EST documented as of this encounter Care Teams Director Clinical Applications Relationship Specialty Start Date End Date Farideh Garcia MD [address] [facility] [address] [place] [address] PCP - General Geriatric Medicine 09/16/24 documented as of this encounter
--- OUTSIDE RECORDS SUMMARY | 2025-05-13 15:25 | XMS_ITS | Encounter Summary ---
[facility] Address [address] [place] [address] Care Team Providers Care Stull Hewer Name Role Phone Farideh Garcia MD Primary Care Provider [phone] Encounter Details Date Type Department Care Team (Late st Contact Info) Description 12/15/2024 Lab Requisition [facility] - Main Lab 299 [facility] [place] [address] Farideh Garcia MD [address] [place] [address] Benign prostatic hyperplasia with lower urinary tract [...] LAB CHEMISTRY METHOD 12/15/2024 12:44 PM EDT [facility] Blood Venous blood specimen / Unknown Venipuncture / Unknown 12/15/2024 5:57 AM EDT 12/15/2024 11:52 AM EDT Narrative [facility] - 12/15/2024 12:44 PM EDT The Siemens Advia Centaur Chemiluminescent Immunoassay is used. Results obtained with different assay methods or kits cannot be used interchangeably. Results cannot be interpreted as absolute evidence of the presence or absence of malignant disease. us Farideh Garcia MD LAB BLOOD ORDERABLES Final Resul t [facility]) [facility] [address] [place] [address], documented in this encounter Visit Diagnoses Diagnosis Benign prostatic hyperplasia with lower urinary tract symptoms documented in this encounter Care Teams Stull Hewer Relationship Specialty Start Date End Date Farideh Garcia MD [address] [place] [address] [address] [place] [address] PCP - General Geriatric Medicine 09/16/24 documented as of this encounter
== END 2025-05-13 13:46 | disposition home or self-care (01) ==
LOC: HO.ENCR 12:58
PROVIDERS: PCP Internal Medicine; Visit Provider Internal Medicine Endocrinology, Diabetes & Metabolism
DX: E27.9 Disorder of adrenal gland, unspecified (principal)
CPT/HCPCS: 99204

== ENCOUNTER → 2025-05-13 12:57 | Outpatient (BNVA) | payer MEDICARE, MEDICAID, SELFPAY | PROVIDERS: PCP Internal Medicine; Visit Provider Internal Medicine Endocrinology, Diabetes & Metabolism | DX: E27.9 Disorder of adrenal gland, unspecified (principal) | CPT/HCPCS: 99202 ==

== ENCOUNTER 2025-05-30 08:20 | Outpatient (REF) | payer MEDICARE, MEDICAID, SELFPAY ==
--- OUTSIDE RECORDS SUMMARY | 2025-05-30 08:24 | XMS_ITS | Encounter Summary ---
Author Organization [facility] Address [address] [place] [address] Care Team Providers Care Front Edger Name Role Phone Farideh Garcia MD Primary Care Provider [phone] Encounter Details Date Type Department Care Team (Late st Contact Info) Description 12/15/2024 Lab Requisition [facility] - Main Lab 299 [facility] [place] [address] Farideh Garcia MD [address] [place] [address] Frequency of micturition Social History Tobacco Use [...] reflex microscopic (12/14/2024 1:00 PM EDT) Specific [place] Urine 1.020 1.003 - 1.030 LAB URINALYSIS - AUTOMATED METHOD 12/15/2024 12:12 PM EDT [facility] pH, Urine 8.0 5.0 - 8.0 pH LAB URINALYSIS - AUTOMATED METHOD 12/15/2024 12:12 PM [facility] Leukocytes, Urine Trace(A) Negative LAB URINALYSIS - AUTOMATED METHOD 12/15/2024 12:12 PM [facility] Nitrite, Urine Negative Negative LAB URINALYSIS - AUTOMATED METHOD 12/15/2024 12:12 PM [facility] Protein, Urine Trace <=Trace mg/dL LAB URINALYSIS - AUTOMATED METHOD 12/15/2024 12:12 PM [facility] Glucose, Urine Negative Negative mg/dL LAB URINALYSIS - AUTOMATED METHOD 12/15/2024 12:12 PM [facility] Ketones, Urine Trace(A) Negative mg/dL LAB URINALYSIS - AUTOMATED METHOD 12/15/2024 12:12 PM [facility] Urobilinogen, Urine 2.0(A) 0.2 - 1.0 mg/dL LAB URINALYSIS - AUTOMATED METHOD 12/15/2024 12:12 PM [facility] Bilirubin, Urine Negative Negative LAB URINALYSIS - AUTOMATED METHOD 12/15/2024 12:12 PM [facility] Blood, Urine Negative Negative LAB URINALYSIS - AUTOMATED METHOD 12/15/2024 12:12 PM [facility] RBC, Urine 4.8(H) 0 - 4 /HPF LAB URINALYSIS - AUTOMATED METHOD 12/15/2024 12:12 PM [facility] WBC, Urine 0.9 0 - 4 /HPF LAB URINALYSIS - AUTOMATED METHOD 12/15/2024 12:12 PM [facility] Squamous Epithelial, Urine 15 0 - 60 /LPF LAB URINALYSIS - AUTOMATED METHOD 12/15/2024 12:12 PM [facility] Bacteria, Urine Negative Negative /HPF LAB URINALYSIS - AUTOMATED METHOD 12/15/2024 12:12 PM EDT [facility] LAB Hyaline Casts, Urine 0.0 0 - 3 /LPF LAB URINALYSIS - AUTOMATED METHOD 12/15/2024 12:12 PM EDT [facility] LAB Urine Urine specimen from urethra / Unknown Non-blood Collection / Unknown 12/14/2024 1:00 PM EDT 12/15/2024 11:50 AM EDT us Farideh Garcia MD LAB URINE ORDERABLES Final Resul t [facility] [address] [place] [address], * (ABNORMAL) Culture urine (12/14/2024 1:00 PM EDT) Culture, Urine 10,000-49,000 CFU/mL Proteus mirabilis(A) SHANIA 12/19/2024 8:39 AM EDT [facility] LAB Comment: Edited result: Previously reported as Proteus species on 12/18/2024 at 1125 EDT. Culture, Urine 10,000-49,000 CFU/mL Morganella morganii ssp morganii(A) SHANIA 12/19/2024 8:39 AM EDT [facility] Comment: The organism value [...] SHANIA <=0.5 ug/ml: Susceptible Proteus mirabilis Ceftriaxone SAHNIA <=0.25 ug/ml: Susceptible Proteus mirabilis Cefepime SHANIA [...] GENERAL ORDER ITZEL Final Result [facility] [address] [place] [address], documented in this encounter Visit Diagnoses Diagnosis Frequency of micturition Urinary frequency documented in this encounter Care Teams Front Edger Relationship Specialty Start Date End Date Farideh Garcia MD [address] [place] [address] [address] [place] [address] PCP - General Geriatric Medicine 09/16/24 documented as of this encounter
--- OUTSIDE RECORDS SUMMARY | 2025-05-30 08:25 | XMS_ITS | Encounter Summary ---
Author Organization [facility]indy [facility] Address [address] [place] [address] Care Team Providers Care Printer Slotter Operator Name Role Phone Farideh Garcia MD Primary Care Provider [phone] Encounter Details Date Type Department Care Team (Late st Contact Info) Description 02/06/2025 Lab Requisition [facility] - Main Lab 299 [facility] [place] [address] Farideh Garcia MD [address] [place] [address] Weakness Social History Tobacco Use Types Packs/Day [...] LAB CHEMISTRY METHOD 02/06/2025 11:08 AM T [facility] Potassium 3.4(L) 3.5 - 5.5 mmol/L LAB CHEMISTRY METHOD 02/06/2025 11:08 AM T [facility] Chloride 103 96 [...] 73m2 LAB CHEMISTRY METHOD 02/06/2025 11:08 AM [facility] LAB Comment:Calculation based on the Chronic Kidney Disease Epidemiology Collaboration (CKD-EPI) equation refit without adjustment for race. BUN/Creatinine Ratio 18.0 LAB CHEMISTRY METHOD 02/06/2025 11:08 AM [facility] Calcium 8.5 8.5 - 10.5 mg/dL LAB CHEMISTRY METHOD 02/06/2025 11:08 AM [facility] Blood Venous blood specimen / Unknown Venipuncture / Unknown 02/06/2025 5:45 AM EDT 02/06/2025 9:25 AM EDT us Farideh aGrcia MD LAB BLOOD ORDERABLES Final Resul t [facility] [address] [place] [address], * (ABNORMAL) Complete blood count (02/06/2025 5:45 AM EDT) WBC 7.5 4.8 - 10.8 K/mcL LAB HEMETOLOGY METHOD 02/06/2025 10:51 AM [facility] RBC 4.70 4.50 - 5.50 M/mcL LAB HEMETOLOGY METHOD 02/06/2025 10:51 AM [facility] Hemoglobin 12.5(L) 13.5 - 17.5 g/dL LAB HEMETOLOGY METHOD 02/06/2025 10:51 AM [facility] Hematocrit 39.9(L) 42.0 - 54.0 % LAB HEMETOLOGY METHOD 02/06/2025 10:51 AM [facility] MCV 84.2 79.0 - 98.0 FL LAB HEMETOLOGY METHOD 02/06/2025 10:51 AM [facility] MCH 26.4(L) 27.0 - 32.0 pcg LAB HEMETOLOGY METHOD 02/06/2025 10:51 AM [facility] MCHC 31.3(L) 32.0 - 37.0 g/dL LAB HEMETOLOGY METHOD 02/06/2025 10:51 AM [facility] RDW 15.2(H) 11.0 - 15.0 % LAB HEMETOLOGY METHOD 02/06/2025 10:51 AM [facility] Platelets 184 130 - 400 K/mcL LAB HEMETOLOGY METHOD 02/06/2025 10:51 AM [facility] MPV 9.8 7.0 - 11.0 FL LAB HEMETOLOGY METHOD 02/06/2025 10:51 AM [facility] NRBC 0.0 <1.0 % LAB HEMETOLOGY METHOD 02/06/2025 10:51 AM [facility] NRBC Absolute 0.00 <0.10 K/mcL LAB HEMETOLOGY METHOD 02/06/2025 10:51 AM [facility] Blood Venous blood specimen / Unknown Venipuncture / Unknown 02/06/2025 5:45 AM EDT 02/06/2025 9:25 AM EDT Farideh Garcia MD LAB BLOOD ORDERABLES Final Resul t [facility] ([facility] [address] [place] [address], documented in this encounter Visit Diagnoses Diagnosis Weakness Other malaise and fatigue documented in this encounter Care Teams Printer Slotter Operator Relationship Specialty Start Date End Date Farideh Garcia MD [address] [place] [address] [address] [place] [address] PCP - General Geriatric Medicine 09/16/24 documented as of this encounter
--- OUTSIDE RECORDS SUMMARY | 2025-05-30 08:25 | XMS_ITS | Clinical Summary ---
Author Organization [address] [facility] Address [address] [place] [address] Phone Care Team Providers Care Assembly Press Operator Name Role Phone Farideh Garcia MD Primary Care Provider [phone] Social History Tobacco Use Types Packs/Day Years Used Date Smoking Tobacco: Never Assessed Sex and Gender Information Value Date Recorded Sex Assigned at Not on file Legal Sex Male 9:10 PM EST Gender Identity Not on file Sexual Orientation Not on file Plan of Treatment Health Maintenance Due Date Last Done Comments DTaP,Tdap,and Td Vaccines (1 - Tdap) 1967 Pneumococcal Vaccine: 50+ Ye ars (1 of 1 - PCV) 1998 Zoster Vaccines (1 of 2) 1998 RSV Immunization Adult Patie nts (1 - 1-dose 75+ series) 2023 Cholesterol Screening (Lipid Panel) 09/14/2023 Falls Risk Assessment 09/14/2023 Hepatitis C Screening 09/14/2023 Medicare Annual Wellness Visit 09/14/2023 Social Influencers of Health Screening 09/14/2023 Depression Screening 08/20/2024 COVID-19 Vaccine ( - 2023-2 5 season) 2025 Influenza Vaccine (#1) 2025 HIB Vaccines Aged Out No longer eligi [...] on patient's age to complete this topic Insurance MEDICARE MEDICAID - [place] Care Teams Assembly Press Operator Relationship Specialty Start Date End Date Farideh Garcia MD [address] [place] [address] [address] [place] [address] PCP - General Geriatric Medicine 09/16/24
--- OUTSIDE RECORDS SUMMARY | 2025-05-30 08:25 | XMS_ITS | Encounter Summary ---
Author Organization [employer] Address [address] [place] [address] Care Team Providers Care Shell Coremaker Name Role Phone Farideh Garcia MD Primary Care Provider [phone] Encounter Details Date Type Department Care Team (Late st Contact Info) Description 09/23/2024 Lab Requisition [facility] - Main Lab [address] [facility] [place] [address] Kris Osorio MD [address] [place] [id number] Benign prostatic hyperplasia without lower urinary tract [...] ORDERABLES Final Res ult Performing Organization Address [facility]/ZIP Co de Phone Number [facility] [address] [place] [address], * Magnesium (09/24/2024 6:55 AM EST) Pathologist [facility] Magnesium 2.3 1.9 - 2.6 mg/dL LAB CHEMISTRY METHOD 09/24/2024 11:04 AM EST [facility] Blood Venous blood specimen / Unknown Venipuncture / Unknown 09/24/2024 6:55 AM EST 09/24/2024 10:15 AM EST Kris Osorio MD LAB BLOOD ORDERABLES Final Res ult [facility] [address] [place] [address], * (ABNORMAL) Folate (09/24/2024 6:55 AM EST) Pathologist [facility] Folate >20.0(H) 2.8 - 17.0 ng/ml LAB CHEMISTRY METHOD 09/24/2024 11:15 AM EST [facility] Blood Venous blood specimen / Unknown Venipuncture / Unknown 09/24/2024 6:55 AM EST 09/24/2024 10:15 AM EST Kris Osorio MD LAB BLOOD ORDERABLES Final Res ult [facility] [address] [place] [address], [place] [phone] * (ABNORMAL) Comprehensive metabolic panel (09/24/2024 6:55 AM EST) Sodium 139 133 - 145 mmol/L LAB CHEMISTRY METHOD 09/24/2024 11:15 AM [facility] Potassium 3.9 3.5 - 5.5 mmol/L LAB CHEMISTRY METHOD 09/24/2024 11:15 AM [facility] Chloride 103 96 - 110 mmol/L LAB CHEMISTRY METHOD 09/24/2024 11:15 AM [facility] CO2 33(H) 21 - 32 mmol/L LAB CHEMISTRY METHOD 09/24/2024 11:15 AM [facility] Anion Gap 3 3 - 11 LAB CHEMISTRY METHOD 09/24/2024 11:15 AM [facility] Glucose 104(H) 70 - 100 mg/dL LAB CHEMISTRY METHOD 09/24/2024 11:15 AM [facility] BUN 17 5 - 25 mg/dL LAB CHEMISTRY METHOD 09/24/2024 11:15 AM [facility] Creatinine 0.57(L) 0.70 - 1.30 mg/dL LAB CHEMISTRY METHOD 09/24/2024 11:15 AM [facility] eGFR 102 >=60 mL/min/1. 73m2 LAB CHEMISTRY METHOD 09/24/2024 11:15 AM [facility] Comment:Calculation based on the Chronic Kidney Disease Epidemiology Collaboration (CKD-EPI) equation refit without adjustment for race. BUN/Creatinine Ratio 29.8 LAB CHEMISTRY METHOD 09/24/2024 11:15 AM [facility] Calcium 8.7 8.5 - 10.5 mg/dL LAB CHEMISTRY METHOD 09/24/2024 11:15 AM [facility] AST (SGOT) 21 10 - 42 unit/L LAB CHEMISTRY METHOD 09/24/2024 11:15 AM [facility] ALT (SGPT) 38 10 - 60 unit/L LAB CHEMISTRY METHOD 09/24/2024 11:15 AM [facility] Alkaline Phosphatase 102 42 - 121 unit/L LAB CHEMISTRY METHOD 09/24/2024 11:15 AM [facility] Total Protein 6.0 6.0 - 8.0 g/dL LAB CHEMISTRY METHOD 09/24/2024 11:15 AM [facility] Albumin 3.3 3.2 - 5.0 g/dL LAB CHEMISTRY METHOD 09/24/2024 11:15 AM [facility] Total Bilirubin 0.2 0.0 - 1.4 mg/dL LAB CHEMISTRY METHOD 09/24/2024 11:15 AM [facility] Blood Venous blood specimen / Unknown Venipuncture / Unknown 09/24/2024 6:55 AM EST 09/24/2024 10:15 AM EST us Kris Osorio MD LAB BLOOD ORDERABLES Final Res ult [facility] [address] [place] [address], * (ABNORMAL) Complete blood count (09/24/2024 6:55 AM EST) WBC 8.9 4.8 - 10.8 K/mcL LAB HEMETOLOGY METHOD 09/24/2024 10:37 AM [facility] RBC 4.60 4.50 - 5.50 M/mcL LAB HEMETOLOGY METHOD 09/24/2024 10:37 AM [facility] Hemoglobin 12.3(L) 13.5 - 17.5 g/dL LAB HEMETOLOGY METHOD 09/24/2024 10:37 AM [facility] Hematocrit 38.7(L) 42.0 - 54.0 % LAB HEMETOLOGY METHOD 09/24/2024 10:37 AM [facility] MCV 84.7 79.0 - 98.0 FL LAB HEMETOLOGY METHOD 09/24/2024 10:37 AM [facility] MCH 26.9(L) 27.0 - 32.0 pcg LAB HEMETOLOGY METHOD 09/24/2024 10:37 AM [facility] MCHC 31.8(L) 32.0 - 37.0 g/dL LAB HEMETOLOGY METHOD 09/24/2024 10:37 AM [facility] RDW 13.7 11.0 - 15.0 % LAB HEMETOLOGY METHOD 09/24/2024 10:37 AM [facility] Platelets 194 130 - 400 K/[facility] LAB HEMETOLOGY METHOD 09/24/2024 10:37 AM [facility] MPV 10.3 7.0 - 11.0 FL LAB HEMETOLOGY METHOD 09/24/2024 10:37 AM [facility] NRBC 0.2 <1.0 % LAB HEMETOLOGY METHOD 09/24/2024 10:37 AM [facility] NRBC Absolute 0.02 <0.10 K/[facility] LAB HEMETOLOGY METHOD 09/24/2024 10:37 AM [facility] Blood Venous blood specimen / Unknown Venipuncture / Unknown 09/24/2024 6:55 AM EST 09/24/2024 10:15 AM EST Kris Osorio MD LAB BLOOD ORDERABLES Final Res ult [facility] [address] [place] [address], documented in this encounter Visit Diagnoses Diagnosis Benign prostatic hyperplasia without lower urinary tract symptoms Vitamin D deficiency, unspecified Essential (primary) hypertension Unspecified essential hypertension documented in this encounter Care Teams Shell Coremaker Relationship Specialty Start Date End Date Farideh Garcia MD [address] [place] [address] [address] [place] [address] PCP - General Geriatric Medicine 09/16/24 documented as of this encounter
--- OUTSIDE RECORDS SUMMARY | 2025-05-30 08:25 | XMS_ITS | Encounter Summary ---
Author Organization [facility] Address [address] [place] [address] Care Team Providers Care Coat Feller Name Role Phone Farideh Garcia MD Primary Care Provider [phone] Encounter Details Date Type Department Care Team (Late st Contact Info) Description 08/21/2024 Lab Requisition [facility] - Main Lab [address] [place] [address] Kris Osorio MD [address] [place] [id number] Essential (primary) hypertension Social History Tobacco Use [...] LAB CHEMISTRY METHOD 08/22/2024 10:42 AM EST [facility] Potassium 3.5 3.5 - 5.5 mmol/L LAB CHEMISTRY METHOD 08/22/2024 10:42 AM EST [facility] Chloride 105 96 - 110 mmol/L LAB CHEMISTRY METHOD 08/22/2024 10:42 AM EST [facility] CO2 31 21 - 32 mmol/L LAB CHEMISTRY METHOD 08/22/2024 10:42 AM [facility] Anion Gap 6 3 - 11 LAB CHEMISTRY METHOD 08/22/2024 10:42 AM [facility] Glucose 124(H) 70 - 100 mg/dL LAB CHEMISTRY METHOD 08/22/2024 10:42 AM [facility] BUN 16 5 - 25 mg/dL LAB CHEMISTRY METHOD 08/22/2024 10:42 AM [facility] Creatinine 0.61(L) 0.70 - 1.30 mg/dL LAB CHEMISTRY METHOD 08/22/2024 10:42 AM [facility] eGFR 100 >=60 mL/min/1. 73m2 LAB CHEMISTRY METHOD 08/22/2024 10:42 AM [facility] Comment:Calculation based on the Chronic Kidney Disease Epidemiology Collaboration (CKD-EPI) equation refit without adjustment for race. BUN/Creatinine Ratio 26.2 LAB CHEMISTRY METHOD 08/22/2024 10:42 AM [facility] Calcium 8.4(L) 8.5 - 10.5 mg/dL LAB CHEMISTRY METHOD 08/22/2024 10:42 AM [facility] Blood Venous blood specimen / Unknown Venipuncture / Unknown 08/22/2024 5:29 AM EST 08/22/2024 10:05 AM EST us Kris Osorio MD LAB BLOOD ORDERABLES Final Res ult [facility] [address] [place] [address], documented in this encounter Visit Diagnoses Diagnosis Essential (primary) hypertension Unspecified essential hypertension documented in this encounter Additional Health Concerns Infection Onset Date Last Indicated Resolved Time Respiratory Rule-Out 09/16/2024 09/15/2024 025 12:35 PM EST documented as of this encounter Care Teams Coat Feller Relationship Specialty Start Date End Date Farideh Garcia MD [address] [facility] [place] [address] [place] [address] PCP - General Geriatric Medicine 09/16/24 documented as of this encounter
--- OUTSIDE RECORDS SUMMARY | 2025-05-30 08:25 | XMS_ITS | Encounter Summary ---
Author Organization [facility] Address [address] [place] [address] Care Team Providers Care Collar Cutter Name Role Phone Farideh Garcia MD Primary Care Provider [phone] Encounter Details Date Type Department Care Team (Late st Contact Info) Description 09/16/2024 Lab Requisition [facility] - Main Lab [address] [facility] [place] [address] Farideh Garcia MD [address] [place] [address] Shortness of breath; Acute cough Social History [...] Procedure Name Priority Date/Time Associated Diagnosis Comments [id number], RSV, FLU A AND B QUALITATIVE RT-PCR, LOCAL REFERENCE LAB Routine 09/15/2024 12:00 PM EST Shortness of breath Acute cough documented in this encounter Results * [id number], RSV, Influenza A and B qualitative RT-PCR (09/15/2024 12:00 PM EST) SARS COV-2 Not Detected Not Detected LAB MOLECULAR DIAGNOSTICS METHOD 09/16/2024 12:35 PM EST [facility] LAB Comment: Disclaimer: The manner in which this information is used to guide patient care is the responsibility of the healthcare provider. Testing was performed using the Easel Learn m SARS-CoV-2 test. This test has been [...] for Healthcare Providers can be found at: https://www.fda.gov/media/040605/download Fact sheet for Patients can be found at: https://www.fda.gov/media/641962/download Influenza A PCR Not Detected Not Detected LAB MOLECULAR DIAGNOSTICS METHOD 09/16/2024 12:35 PM EST [facility] Influenza B PCR Not Detected Not Detected LAB MOLECULAR DIAGNOSTICS METHOD 09/16/2024 12:35 PM [facility] RSV PCR Not Detected Not Detected LAB MOLECULAR DIAGNOSTICS METHOD 09/16/2024 12:35 PM [facility] Swab Nasopharyngeal structure / Unknown 09/15/2024 12:00 PM EST 09/16/2024 9:43 AM EST Farideh Garcia MD LAB MICROBIOLOGY - GENERAL ORDER ITZEL Final Result [facility] [address] [place] [address], documented in this encounter Visit Diagnoses Diagnosis Shortness of breath Acute cough documented in this encounter Additional Health Concerns Infection Onset Date Last Indicated Resolved Time Respiratory Rule-Out 09/16/2024 09/15/2024 025 12:35 PM EST documented as of this encounter Care Teams Collar Cutter Relationship Specialty Start Date End Date Farideh Garcia MD [address] [facility] [address] [place] [address] PCP - General Geriatric Medicine 09/16/24 documented as of this encounter
--- OUTSIDE RECORDS SUMMARY | 2025-05-30 08:25 | XMS_ITS | Encounter Summary ---
Author Organization [facility] Address [address] [place] [address] Care Team Providers Care Bead Inspector Name Role Phone Farideh Garcia MD Primary Care Provider Encounter Details Date Type Department Care Team (Late st Contact Info) Description 10/21/2024 Lab Requisition [facility] - Main Lab [address] [facility] [place] [address] Farideh Garcia MD [address] [place] [address] Vitamin D deficiency, unspecified Social History Tobacco [...] CHEMISTRY METHOD 10/22/2024 12:24 PM EST [facility] Blood Venous blood specimen / Unknown Venipuncture / Unknown 10/22/2024 5:45 AM EST 10/22/2024 11:10 AM EST us Farideh Garcia MD LAB BLOOD ORDERABLES Final Resul t [facility] ([facility] LAB [address] [place] [address], documented in this encounter Visit Diagnoses Diagnosis Vitamin D deficiency, unspecified documented in this encounter Care Teams Bead Inspector Relationship Specialty Start Date End Date Farideh Garcia MD [address] [place] [address] [address] [place] [address] PCP - General Geriatric Medicine 09/16/24 documented as of this encounter
--- OUTSIDE RECORDS SUMMARY | 2025-05-30 08:25 | XMS_ITS | Encounter Summary ---
Author Organization [facility] Address [address] [place] [address] Care Team Providers Care Provider Network Mgr Name Role Phone Farideh Garcia MD Primary Care Provider [phone] Encounter Details Date Type Department Care Team (Late st Contact Info) Description 12/11/2024 Lab Requisition [facility] - Main Lab [address] [facility] [place] [address] Farideh Garcia MD [address] [place] [address] Dysuria Social History Tobacco Use Types Packs/Day [...] recollection if clinically indicated. 12/12/2024 10:31 AM [facility] Urine Urine specimen obtained by clean catch procedure / Unknown 12/10/2024 3:10 PM EDT 12/11/2024 9:03 AM EDT us Farideh Garcia MD LAB MICROBIOLOGY - GENERAL ORDER ITZEL Final Result [facility] [address] [place] [address], [place] [phone] * (ABNORMAL) Urinalysis with reflex microscopic and culture (12/10/2024 3:10 PM EDT) Specific Pitman Urine 1.020 1.003 - 1.030 LAB URINALYSIS - AUTOMATED METHOD 12/11/2024 9:03 AM [facility] pH, Urine 7.0 5.0 - 8.0 pH LAB URINALYSIS - AUTOMATED METHOD 12/11/2024 9:03 AM [facility] Leukocytes, Urine Trace(A) Negative LAB URINALYSIS - AUTOMATED METHOD 12/11/2024 9:03 AM [facility] Nitrite, Urine Positive(A) Negative LAB URINALYSIS - AUTOMATED METHOD 12/11/2024 9:03 AM [facility] Protein, Urine Negative <=Trace mg/dL LAB URINALYSIS - AUTOMATED METHOD 12/11/2024 9:03 AM [facility] Glucose, Urine Negative Negative mg/dL LAB URINALYSIS - AUTOMATED METHOD 12/11/2024 9:03 AM [facility] Ketones, Urine Negative Negative mg/dL LAB URINALYSIS - AUTOMATED METHOD 12/11/2024 9:03 AM [facility] Urobilinogen , Urine 0.2 0.2 - 1.0 mg/dL LAB URINALYSIS - AUTOMATED METHOD 12/11/2024 9:03 AM [facility] Bilirubin, Urine Negative Negative LAB URINALYSIS - AUTOMATED METHOD 12/11/2024 9:03 AM EDT [facility] Blood, Urine Negative Negative LAB URINALYSIS - AUTOMATED METHOD 12/11/2024 9:03 AM [facility] RBC, Urine 7.0(H) 0 - 4 /HPF LAB URINALYSIS - AUTOMATED METHOD 12/11/2024 9:03 AM [facility] WBC, Urine 3.8 0 - 4 /HPF LAB URINALYSIS - AUTOMATED METHOD 12/11/2024 9:03 AM [facility] Squamous Epithelial, Urine 67(H) 0 - 60 /LPF LAB URINALYSIS - AUTOMATED METHOD 12/11/2024 9:03 AM [facility] Bacteria, Urine Many(A) Negative /HPF LAB URINALYSIS - AUTOMATED METHOD 12/11/2024 9:03 AM [facility] Hyaline Casts, Urine 2.0 0 - 3 /LPF LAB URINALYSIS - AUTOMATED METHOD 12/11/2024 9:03 AM [facility] Urine Urine specimen obtained by clean catch procedure / Unknown 12/10/2024 3:10 PM EDT 12/11/2024 8:32 AM EDT us Farideh Garcia MD LAB URINE ORDERABLES Final Resul t [facility] [address] [place] [address], * Kumari urine culture tube (12/10/2024 3:10 PM EDT) Extra Tube Hold for add-ons. 12/11/2024 10:01 AM EDT [facility] Comment:Auto resulted. Urine Urine specimen obtained by clean catch procedure / Unknown 12/10/2024 3:10 PM EDT 12/11/2024 8:32 AM EDT us Farideh Garcia MD LAB URINE ORDERABLES Final Resul t [facility] [address] [place] [address], documented in this encounter Visit Diagnoses Diagnosis Dysuria documented in this encounter Care Teams Provider Network Mgr Relationship Specialty Start Date End Date Farideh Garcia MD [address] [place] [address] [address] [place] [address] PCP - General Geriatric Medicine 09/16/24 documented as of this encounter
--- OUTSIDE RECORDS SUMMARY | 2025-05-30 08:25 | XMS_ITS | Encounter Summary ---
Author Organization [facility] Address [address] [place] [address] Care Team Providers Care Thickener Operator Name Role Phone Farideh Garcia MD Primary Care Provider [phone] Encounter Details Date Type Department Care Team (Late st Contact Info) Description 12/15/2024 Lab Requisition [facility] - Main Lab [address] [facility] [place] [address] Farideh Garcia MD [address] [place] [address] Benign prostatic hyperplasia with lower urinary tract [...] LAB CHEMISTRY METHOD 12/15/2024 12:44 PM EDT [facility] Blood Venous blood specimen / Unknown Venipuncture / Unknown 12/15/2024 5:57 AM EDT 12/15/2024 11:52 AM EDT Narrative [facility] - 12/15/2024 12:44 PM EDT The Siemens Advia Centaur Chemiluminescent Immunoassay is used. Results obtained with different assay methods or kits cannot be used interchangeably. Results cannot be interpreted as absolute evidence of the presence or absence of malignant disease. us Farideh Garcia MD LAB BLOOD ORDERABLES Final Resul t [facility] [address] [place] [address], documented in this encounter Visit Diagnoses Diagnosis Benign prostatic hyperplasia with lower urinary tract symptoms documented in this encounter Care Teams Thickener Operator Relationship Specialty Start Date End Date Farideh Garcia MD [address] [place] [address] [address] [place] [address] PCP - General Geriatric Medicine 09/16/24 documented as of this encounter
== END 2025-05-30 08:21 | disposition home or self-care (01) ==
LOC: HO.LAB 08:20
PROVIDERS: PCP Internal Medicine; Visit Provider Internal Medicine Endocrinology, Diabetes & Metabolism
DX: E27.9 Disorder of adrenal gland, unspecified (principal)
CPT/HCPCS: 36415; 80299; 82088; 82384; 82533; 82627; 84244

== ENCOUNTER → 2025-06-11 13:47 | Outpatient (BNV) | payer MEDICARE, MEDICAID, SELFPAY | PROVIDERS: PCP Internal Medicine; Visit Provider Internal Medicine Cardiovascular Disease | DX: I63.9 Cerebral infarction, unspecified (principal); I10 Essential (primary) hypertension | CPT/HCPCS: 93010 ==

== ENCOUNTER 2025-06-17 07:13 | Day surgery (SDC) | payer MEDICARE, MEDICAID, SELFPAY ==
--- OUTSIDE RECORDS SUMMARY | 2025-05-12 16:51 | XMS_ITS | Clinical Summary ---
Author Organization [address] [facility] Address [address] [place] [address] Phone Care Team Providers Care Ophthalmic Surgeon Name Role Phone Farideh Garcia MD Primary Care Provider [phone] Social History Tobacco Use Types Packs/Day Years [...] PANEL Routine 02/06/2025 5:45 AM EDT Weakness from Last 3 Months or Most Recently Relevant to Health Maintenance Results * (ABNORMAL) Basic metabolic panel (02/06/2025 5:45 AM EDT) Sodium 140 133 - 145 mmol/L LAB CHEMISTRY METHOD 02/06/2025 11:08 AM [facility] Potassium 3.4(L) 3.5 - 5.5 mmol/L LAB CHEMISTRY METHOD 02/06/2025 11:08 AM [facility] Chloride 103 96 - 110 mmol/L LAB CHEMISTRY METHOD 02/06/2025 11:08 AM [facility] CO2 31 21 - 32 mmol/L LAB CHEMISTRY METHOD 02/06/2025 11:08 AM [facility] Anion Gap 6 3 - 11 LAB CHEMISTRY METHOD 02/06/2025 11:08 AM [facility] Glucose 82 70 - 100 mg/dL LAB CHEMISTRY METHOD 02/06/2025 11:08 AM [facility] BUN 11 5 - 25 mg/dL LAB CHEMISTRY METHOD 02/06/2025 11:08 AM [facility] Creatinine 0.61(L) 0.70 - 1.30 mg/dL LAB CHEMISTRY METHOD 02/06/2025 11:08 AM [facility] eGFR 100 >=60 mL/min/1. 73m2 LAB CHEMISTRY METHOD 02/06/2025 11:08 AM EDT [facility] Comment:Calculation based on the Chronic Kidney Disease Epidemiology Collaboration (CKD-EPI) equation refit without adjustment for race. BUN/Creatinine Ratio 18.0 LAB CHEMISTRY METHOD 02/06/2025 11:08 AM EDT [facility] Calcium 8.5 8.5 - 10.5 mg/dL LAB CHEMISTRY METHOD 02/06/2025 11:08 AM EDT [facility] Blood Venous blood specimen / Unknown Venipuncture / Unknown 02/06/2025 5:45 AM EDT 02/06/2025 9:25 AM EDT us Farideh Garcia MD LAB BLOOD ORDERABLES Final Resul t [facility] [address] [place] [address], from Last 3 Months or Most Recently Relevant to Health Maintenance Insurance MEDICARE MEDICAID - [place] Care Teams Ophthalmic Surgeon Relationship Specialty Start Date End Date Farideh Garcia MD [address] [place] [address] [address] [place] [address] PCP - General Geriatric Medicine 09/16/24
--- OUTSIDE RECORDS SUMMARY | 2025-05-12 16:51 | XMS_ITS | Encounter Summary ---
Author Organization [facility] Address [address] [place] [address] Care Team Providers Care Assembler Tester Name Role Phone Farideh Garcia MD Primary Care Provider [phone] Encounter Details Date Type Department Care Team (Late st Contact Info) Description 09/16/[address] [facility] - Main Lab [address] [facility] [place] [address] Farideh Garica MD [address] [place] [address] Shortness of breath; Acute cough Social History [...] Procedure Name Priority Date/Time Associated Diagnosis Comments [id number], RSV, FLU A AND B QUALITATIVE RT-PCR, LOCAL REFERENCE LAB Routine 09/15/2024 12:00 PM EST Shortness of breath Acute cough documented in this encounter Results * [id number], RSV, Influenza A and B qualitative RT-PCR (09/15/2024 12:00 PM EST) SARS COV-2 Not Detected Not Detected LAB MOLECULAR DIAGNOSTICS METHOD 09/16/2024 12:35 PM EST [facility] Comment: Disclaimer: The manner in which this information is used to guide patient care is the responsibility of the healthcare provider. Testing was performed using the hoccer m SARS-CoV-2 test. This test has been [...] for Healthcare Providers can be found at: https://www.fda.gov/media/217365/download Fact sheet for Patients can be found at: https://www.fda.gov/media/672171/download Influenza A PCR Not Detected Not Detected LAB MOLECULAR DIAGNOSTICS METHOD 09/16/2024 12:35 PM EST [facility] Influenza B PCR Not Detected Not Detected LAB MOLECULAR DIAGNOSTICS METHOD 09/16/2024 12:35 PM [facility] RSV PCR Not Detected Not Detected LAB MOLECULAR DIAGNOSTICS METHOD 09/16/2024 12:35 PM [facility] Swab Nasopharyngeal structure / Unknown 09/15/2024 12:00 PM EST 09/16/2024 9:43 AM EST Farideh Garcia MD LAB MICROBIOLOGY - GENERAL ORDER ITZEL Final Result [facility] [address] [place] [address], documented in this encounter Visit Diagnoses Diagnosis Shortness of breath Acute cough documented in this encounter Additional Health Concerns Infection Onset Date Last Indicated Resolved Time Respiratory Rule-Out 09/16/2024 09/15/2024 025 12:35 PM EST documented as of this encounter Care Teams Assembler Tester Relationship Specialty Start Date End Date Farideh Garcia MD [address] [facility] [address] [place] [address] PCP - General Geriatric Medicine 09/16/24 documented as of this encounter
--- OUTSIDE RECORDS SUMMARY | 2025-05-12 16:51 | XMS_ITS | Encounter Summary ---
[facility] Address [address] [place] [address] Care Team Providers Care Control Equipment Electrician Name Role Phone Farideh Garcia MD Primary Care Provider [phone] Encounter Details Date Type Department Care Team (Late st Contact Info) Description 12/15/2024 Lab Requisition [facility] - Main Lab [address] [facility] [place] [address] Farideh Garcia MD [address] [place] [address] Benign prostatic hyperplasia with lower urinary tract [...] LAB CHEMISTRY METHOD 12/15/2024 12:44 PM EDT [facility] Blood Venous blood specimen / Unknown Venipuncture / Unknown 12/15/2024 5:57 AM EDT 12/15/2024 11:52 AM EDT Narrative [facility] - 12/15/2024 12:44 PM EDT The Siemens Advia Centaur Chemiluminescent Immunoassay is used. Results obtained with different assay methods or kits cannot be used interchangeably. Results cannot be interpreted as absolute evidence of the presence or absence of malignant disease. us Farideh Garcia MD LAB BLOOD ORDERABLES Final Resul t [facility] ([facility]) [facility] [address] [place] [address], documented in this encounter Visit Diagnoses Diagnosis Benign prostatic hyperplasia with lower urinary tract symptoms documented in this encounter Care Teams Control Equipment Electrician Relationship Specialty Start Date End Date Farideh Garcia MD [address] [place] [address] [address] [place] [address] PCP - General Geriatric Medicine 09/16/24 documented as of this encounter
--- OUTSIDE RECORDS SUMMARY | 2025-05-12 16:51 | XMS_ITS | Encounter Summary ---
Author Organization [facility] Address [address] [place] [address] Care Team Providers Care Registered Safety Engineer Name Role Phone Farideh Garcia MD Primary Care Provider [phone] Encounter Details Date Type Department Care Team (Late st Contact Info) Description 12/11/2024 Lab Requisition [facility] - Main Lab [address] [facility] [address] [place] [address] Farideh Garcia MD [address] [place] [address] Dysuria Social History Tobacco Use Types Packs/Day [...] recollection if clinically indicated. 12/12/2024 10:31 AM [facility] Urine Urine specimen obtained by clean catch procedure / Unknown 12/10/2024 3:10 PM EDT 12/11/2024 9:03 AM EDT us Farideh Garcia MD LAB MICROBIOLOGY - GENERAL ORDER ITZEL Final Result [facility] [address] [place] [address], [place] [phone] * (ABNORMAL) Urinalysis with reflex microscopic and culture (12/10/2024 3:10 PM EDT) Specific [place] Urine 1.020 1.003 - 1.030 LAB URINALYSIS - AUTOMATED METHOD 12/11/2024 9:03 AM [facility] pH, Urine 7.0 5.0 - 8.0 pH LAB URINALYSIS - AUTOMATED METHOD 12/11/2024 9:03 AM [facility] Leukocytes, Urine Trace(A) Negative LAB URINALYSIS - AUTOMATED METHOD 12/11/2024 9:03 AM [facility] Nitrite, Urine Positive(A) Negative LAB URINALYSIS - AUTOMATED METHOD 12/11/2024 9:03 AM [facility] Protein, Urine Negative <=Trace mg/dL LAB URINALYSIS - AUTOMATED METHOD 12/11/2024 9:03 AM [facility] Glucose, Urine Negative Negative mg/dL LAB URINALYSIS - AUTOMATED METHOD 12/11/2024 9:03 AM [facility] Ketones, Urine Negative Negative mg/dL LAB URINALYSIS - AUTOMATED METHOD 12/11/2024 9:03 AM [facility] Urobilinogen , Urine 0.2 0.2 - 1.0 mg/dL LAB URINALYSIS - AUTOMATED METHOD 12/11/2024 9:03 AM [facility] Bilirubin, Urine Negative Negative LAB URINALYSIS - AUTOMATED METHOD 12/11/2024 9:03 AM EDT [facility] Blood, Urine Negative Negative LAB URINALYSIS - AUTOMATED METHOD 12/11/2024 9:03 AM [facility] RBC, Urine 7.0(H) 0 - 4 /HPF LAB URINALYSIS - AUTOMATED METHOD 12/11/2024 9:03 AM [facility] WBC, Urine 3.8 0 - 4 /HPF LAB URINALYSIS - AUTOMATED METHOD 12/11/2024 9:03 AM [facility] Squamous Epithelial, Urine 67(H) 0 - 60 /LPF LAB URINALYSIS - AUTOMATED METHOD 12/11/2024 9:03 AM [facility] Bacteria, Urine Many(A) Negative /HPF LAB URINALYSIS - AUTOMATED METHOD 12/11/2024 9:03 AM [facility] Hyaline Casts, Urine 2.0 0 - 3 /LPF LAB URINALYSIS - AUTOMATED METHOD 12/11/2024 9:03 AM [facility] Urine Urine specimen obtained by clean catch procedure / Unknown 12/10/2024 3:10 PM EDT 12/11/2024 8:32 AM EDT us Farideh Garcia MD LAB URINE ORDERABLES Final Resul t [facility] [address] [place] [address], * Kumari urine culture tube (12/10/2024 3:10 PM EDT) Extra Tube Hold for add-ons. 12/11/2024 10:01 AM EDT [facility] Comment:Auto resulted. Urine Urine specimen obtained by clean catch procedure / Unknown 12/10/2024 3:10 PM EDT 12/11/2024 8:32 AM EDT us Farideh Garcia MD LAB URINE ORDERABLES Final Resul t [facility] ([facility]) [facility] [address] [place] [address], documented in this encounter Visit Diagnoses Diagnosis Dysuria documented in this encounter Care Teams Registered Safety Engineer Relationship Specialty Start Date End Date Farideh Garcia MD [address] [place] [address] [address] [place] [address] PCP - General Geriatric Medicine 09/16/24 documented as of this encounter
--- OUTSIDE RECORDS SUMMARY | 2025-05-12 16:51 | XMS_ITS | Encounter Summary ---
Author Organization [facility] Address [address] [place] [address] Care Team Providers Care Furnace Builder Name Role Phone Farideh Garcia MD Primary Care Provider [phone] Encounter Details Date Type Department Care Team (Late st Contact Info) Description 08/21/2024 Lab Requisition [facility] - Main Lab [address] [place] [address] Kris Osorio MD [address] [place] [id number] Essential (primary) hypertension Social History Tobacco Use [...] LAB CHEMISTRY METHOD 08/22/2024 10:42 AM EST [facility] Potassium 3.5 3.5 - 5.5 mmol/L LAB CHEMISTRY METHOD 08/22/2024 10:42 AM EST [facility] Chloride 105 96 - 110 mmol/L LAB CHEMISTRY METHOD 08/22/2024 10:42 AM EST [facility] CO2 31 21 - 32 mmol/L LAB CHEMISTRY METHOD 08/22/2024 10:42 AM [facility] Anion Gap 6 3 - [...] [facility] Comment:Calculation based on the Chronic [...] Res ult [facility] [address] [place] [address], documented in this encounter Visit Diagnoses Diagnosis Essential (primary) hypertension Unspecified essential hypertension documented in this encounter Additional Health Concerns Infection Onset Date Last Indicated Resolved Time Respiratory Rule-Out 09/16/2024 09/15/2024 025 12:35 PM EST documented as of this encounter Care Teams Furnace Builder Relationship Specialty Start Date End Date Farideh Garcia MD [address] [facility] [address] [place] [address] PCP - General Geriatric Medicine 09/16/24 documented as of this encounter
--- OUTSIDE RECORDS SUMMARY | 2025-05-12 16:51 | XMS_ITS | Encounter Summary ---
Author Organization [facility] Address [address] [place] [address] Care Team Providers Care Child Care Counselor Name Role Phone Farideh Garcia MD Primary Care Provider [phone] Encounter Details Date Type Department Care Team (Late st Contact Info) Description 12/15/2024 Lab Requisition [facility] - Main Lab [address] [facility] [place] [address] Farideh Garcia MD [address] [place] [address] Frequency of micturition Social History Tobacco Use [...] reflex microscopic (12/14/2024 1:00 PM EDT) Specific [place] Urine 1.020 1.003 - 1.030 LAB URINALYSIS - AUTOMATED METHOD 12/15/2024 12:[address] [facility] pH, Urine 8.0 5.0 - 8.0 pH LAB URINALYSIS - AUTOMATED METHOD 12/15/2024 12:12 PM [facility] Leukocytes, Urine Trace(A) Negative LAB URINALYSIS - AUTOMATED METHOD 12/15/2024 12:12 PM [facility] Nitrite, Urine Negative Negative LAB URINALYSIS - AUTOMATED METHOD 12/15/2024 12:12 PM [facility] Protein, Urine Trace <=Trace mg/dL LAB URINALYSIS - AUTOMATED METHOD 12/15/2024 12:12 PM [facility] Glucose, Urine Negative Negative mg/dL LAB URINALYSIS - AUTOMATED METHOD 12/15/2024 12:12 PM [facility] Ketones, Urine Trace(A) Negative mg/dL LAB URINALYSIS - AUTOMATED METHOD 12/15/2024 12:12 PM [facility] Urobilinogen, Urine 2.0(A) 0.2 - 1.0 mg/dL LAB URINALYSIS - AUTOMATED METHOD 12/15/2024 12:12 PM [facility] Bilirubin, Urine Negative Negative LAB URINALYSIS - AUTOMATED METHOD 12/15/2024 12:12 PM [facility] Blood, Urine Negative Negative LAB URINALYSIS - AUTOMATED METHOD 12/15/2024 12:12 PM [facility] RBC, Urine 4.8(H) 0 - 4 /HPF LAB URINALYSIS - AUTOMATED METHOD 12/15/2024 12:12 PM [facility] WBC, Urine 0.9 0 - 4 /HPF LAB URINALYSIS - AUTOMATED METHOD 12/15/2024 12:12 PM [facility] Squamous Epithelial, Urine 15 0 - 60 /LPF LAB URINALYSIS - AUTOMATED METHOD 12/15/2024 12:12 PM [facility] Bacteria, Urine Negative Negative [...] Resul t [facility] [address] [place] [address], * (ABNORMAL) Culture urine (12/14/2024 1:00 PM [...] - GENERAL ORDER ITZEL Final Result [facility] ([facility]) [facility] [address] [place] [address], documented in this encounter Visit Diagnoses Diagnosis Frequency of micturition Urinary frequency documented in this encounter Care Teams Child Care Counselor Relationship Specialty Start Date End Date Farideh Garcia MD [address] [place] [address] [address] [place] [address] PCP - General Geriatric Medicine 09/16/24 documented as of this encounter
--- OUTSIDE RECORDS SUMMARY | 2025-05-12 16:51 | XMS_ITS | Encounter Summary ---
Author Organization [employer] Address [address] [place] [address] Care Team Providers Care Cooling Tower Technician Name Role Phone Farideh Garcia MD Primary Care Provider Encounter Details Date Type Department Care Team (Late st Contact Info) Description 09/23/2024 Lab Requisition [facility] - Main Lab [address] [facility] [place] [address] Kris Osorio MD [address] [place] [address] Benign prostatic hyperplasia without lower urinary tract [...] Final Res ult Performing Organization Address [facility]/ZIP Co de Phone Number [facility] [address] [place] [address], * Magnesium (09/24/2024 6:55 AM EST) Pathologist [facility] Magnesium 2.3 1.9 - 2.6 mg/dL LAB CHEMISTRY METHOD 09/24/2024 11:04 AM EST [facility] Blood Venous blood specimen / Unknown Venipuncture / Unknown 09/24/2024 6:55 AM EST 09/24/2024 10:15 AM EST Kris Osorio MD LAB BLOOD ORDERABLES Final Res ult [facility] [address] [place] [address], * (ABNORMAL) Folate (09/24/2024 6:55 AM EST) Pathologist [facility] Folate >20.0(H) 2.8 - 17.0 ng/ml LAB CHEMISTRY METHOD 09/24/2024 11:15 AM EST [facility] Blood Venous blood specimen / Unknown Venipuncture / Unknown 09/24/2024 6:55 AM EST 09/24/2024 10:15 AM EST Kris Osorio MD LAB BLOOD ORDERABLES Final Res ult [facility] [address] [place] [address], [place] [phone] * (ABNORMAL) Comprehensive metabolic panel (09/24/2024 6:55 [...] [facility] Comment:Calculation based on the Chronic [...] Res ult [facility] [address] [place] [address], * (ABNORMAL) Complete blood count (09/24/2024 6:55 AM EST) WBC 8.9 4.8 - 10.8 K/mcL LAB HEMETOLOGY METHOD 09/24/2024 10:37 AM [facility] RBC 4.60 4.50 - 5.50 M/mcL LAB HEMETOLOGY METHOD 09/24/2024 10:37 AM [facility] Hemoglobin 12.3(L) 13.5 - 17.5 g/dL LAB HEMETOLOGY METHOD 09/24/2024 10:37 AM [facility] Hematocrit 38.7(L) 42.0 - 54.0 % LAB HEMETOLOGY METHOD 09/24/2024 10:37 AM [facility] MCV 84.7 79.0 - 98.0 FL LAB HEMETOLOGY METHOD 09/24/2024 10:37 AM [facility] MCH 26.9(L) 27.0 - 32.0 pcg LAB HEMETOLOGY METHOD 09/24/2024 10:37 AM [facility] MCHC 31.8(L) 32.0 - 37.0 g/dL LAB HEMETOLOGY METHOD 09/24/2024 10:37 AM [facility] RDW 13.7 11.0 - 15.0 % LAB HEMETOLOGY METHOD 09/24/2024 10:37 AM [facility] Platelets 194 130 - 400 K/[facility] LAB HEMETOLOGY METHOD 09/24/2024 10:37 AM [facility] MPV 10.3 7.0 - 11.0 FL LAB HEMETOLOGY METHOD 09/24/2024 10:37 AM [facility] NRBC 0.2 <1.0 % LAB HEMETOLOGY METHOD 09/24/2024 10:37 AM [facility] NRBC Absolute 0.02 <0.10 K/[facility] LAB HEMETOLOGY METHOD 09/24/2024 10:37 AM [facility] Blood Venous blood specimen / Unknown Venipuncture / Unknown 09/24/2024 6:55 AM EST 09/24/2024 10:15 AM EST Kris Osorio MD LAB BLOOD ORDERABLES Final Res ult [facility] [address] [place] [address], documented in this encounter Visit Diagnoses Diagnosis Benign prostatic hyperplasia without lower urinary tract symptoms Vitamin D deficiency, unspecified Essential (primary) hypertension Unspecified essential hypertension documented in this encounter Care Teams Cooling Tower Technician Relationship Specialty Start Date End Date Farideh Garcia MD [address] [place] [address] [address] [place] [address] PCP - General Geriatric Medicine 09/16/24 documented as of this encounter
--- OUTSIDE RECORDS SUMMARY | 2025-05-12 16:51 | XMS_ITS | Encounter Summary ---
Author Organization [facility] Address [address] [place] [address] Care Team Providers Care Button Clamper Name Role Phone Farideh Garcia MD Primary Care Provider [phone] Encounter Details Date Type Department Care Team (Late st Contact Info) Description 02/06/2025 Lab Requisition [facility] - Main Lab [address] [facility] [place] [address] Farideh Garcia MD [address] [place] [address] Weakness Social History Tobacco Use Types Packs/Day [...] LAB CHEMISTRY METHOD 02/06/2025 11:08 AM T [facility] LAB Potassium 3.4(L) 3.5 - 5.5 mmol/L LAB CHEMISTRY METHOD 02/06/2025 11:08 AM T [facility] LAB Chloride 103 96 - 110 mmol/L LAB CHEMISTRY METHOD 02/06/2025 11:08 AM [facility] LAB CO2 31 21 - 32 mmol/L LAB CHEMISTRY METHOD 02/06/2025 11:08 AM [facility] LAB Anion Gap 6 3 - 11 LAB CHEMISTRY METHOD 02/06/2025 11:08 AM [facility] LAB Glucose 82 70 - 100 mg/dL LAB CHEMISTRY METHOD 02/06/2025 11:08 AM [facility] LAB BUN 11 5 - 25 mg/dL LAB CHEMISTRY METHOD 02/06/2025 11:08 AM [facility] LAB Creatinine 0.61(L) 0.70 - 1.30 mg/dL LAB CHEMISTRY METHOD 02/06/2025 11:08 AM [facility] LAB eGFR 100 >=60 mL/min/1. 73m2 LAB CHEMISTRY METHOD 02/06/2025 11:08 AM [facility] Comment:Calculation based on the Chronic Kidney Disease Epidemiology Collaboration (CKD-EPI) equation refit without adjustment for race. BUN/Creatinine Ratio 18.0 LAB CHEMISTRY METHOD 02/06/2025 11:08 AM [facility] Calcium 8.5 8.5 - 10.5 mg/dL LAB CHEMISTRY METHOD 02/06/2025 11:08 AM [facility] LAB Blood Venous blood specimen / Unknown Venipuncture / Unknown 02/06/2025 5:45 AM EDT 02/06/2025 9:25 AM EDT us Farideh Garcia MD LAB BLOOD ORDERABLES Final Resul t [facility] LAB [address] [place] [address], * (ABNORMAL) Complete blood count (02/06/2025 5:45 AM EDT) WBC 7.5 4.8 - 10.8 K/mcL LAB HEMETOLOGY METHOD 02/06/2025 10:51 AM [facility] RBC 4.70 4.50 - 5.50 M/mcL LAB HEMETOLOGY METHOD 02/06/2025 10:51 AM [facility] Hemoglobin 12.5(L) 13.5 - 17.5 g/dL LAB HEMETOLOGY METHOD 02/06/2025 10:51 AM [facility] LAB Hematocrit 39.9(L) 42.0 - 54.0 % LAB HEMETOLOGY METHOD 02/06/2025 10:51 AM [facility] MCV 84.2 79.0 - 98.0 FL LAB HEMETOLOGY METHOD 02/06/2025 10:51 AM [facility] MCH 26.4(L) 27.0 - 32.0 pcg LAB HEMETOLOGY METHOD 02/06/2025 10:51 AM [facility] LAB MCHC 31.3(L) 32.0 - 37.0 g/dL LAB HEMETOLOGY METHOD 02/06/2025 10:51 AM [facility] RDW 15.2(H) 11.0 - 15.0 % LAB HEMETOLOGY METHOD 02/06/2025 10:51 AM [facility] Platelets 184 130 - 400 K/mcL LAB HEMETOLOGY METHOD 02/06/2025 10:51 AM [facility] MPV 9.8 7.0 - 11.0 FL LAB HEMETOLOGY METHOD 02/06/2025 10:51 AM [facility] NRBC 0.0 <1.0 % LAB HEMETOLOGY METHOD 02/06/2025 10:51 AM [facility] NRBC Absolute 0.00 <0.10 K/mcL LAB HEMETOLOGY METHOD 02/06/2025 10:51 AM [facility] Blood Venous blood specimen / Unknown Venipuncture / Unknown 02/06/2025 5:45 AM EDT 02/06/2025 9:25 AM EDT Farideh Garcia MD LAB BLOOD ORDERABLES Final Resul t [facility] LAB [address] [place] [address], documented in this encounter Visit Diagnoses Diagnosis Weakness Other malaise and fatigue documented in this encounter Care Teams Button Clamper Relationship Specialty Start Date End Date Farideh Garcia MD [address] [place] [address] [address] [place] [address] PCP - General Geriatric Medicine 09/16/24 documented as of this encounter
--- OUTSIDE RECORDS SUMMARY | 2025-05-12 16:51 | XMS_ITS | Encounter Summary ---
Author Organization [facility] Address [address] [place] [address] Care Team Providers Care Anesthesia Director Name Role Phone Farideh Garcia MD Primary Care Provider [phone] Encounter Details Date Type Department Care Team (Late st Contact Info) Description 10/21/2024 Lab Requisition [facility] - Main Lab [address] [facility] [place] [address] Farideh Garcia MD [address] [place] [address] Vitamin D deficiency, unspecified Social History Tobacco [...] LAB CHEMISTRY METHOD 10/22/2024 12:24 PM EST [facility] Blood Venous blood specimen / Unknown Venipuncture / Unknown 10/22/2024 5:45 AM EST 10/22/2024 11:10 AM EST us Farideh Garcia MD LAB BLOOD ORDERABLES Final Resul t [facility] LAB [address] [place] [address], documented in this encounter Visit Diagnoses Diagnosis Vitamin D deficiency, unspecified documented in this encounter Care Teams Anesthesia Director Relationship Specialty Start Date End Date Farideh Garcia MD [address] [place] [address] [address] [place] [address] PCP - General Geriatric Medicine 09/16/24 documented as of this encounter
--- NOTE | 2025-06-11 | ECG_ITS ---
Test Reason : preop Blood Pressure : */* mmHG Vent. Rate : 68 BPM Atrial Rate : 68 BPM P-R Int : 150 ms QRS Dur : 94 ms QT Int : 382 ms P-R-T Axes : 42 -1 39 degrees QTcB Int : 406 ms Normal sinus rhythm Normal ECG When compared with ECG of 04-Sep-2022 06:04, T wave inversion no longer evident in Anterior leads Referred By: Rhonda Reyes Electronically Signed By: JUANI FISCHER MD
[2025-06-11 12:21] VITALS: BP 96/51; PULSE 72; RESP 16; O2SAT 95; BMI 29.6
--- NOTE | 2025-06-11 13:22 | P.CONAN_ITS ---
Documented by User: Rhonda Reyes NP 06/12/25 08:58 HPI - Anesthesia Eval Consult details Narrative: 74yo M for C4-5 Laminectomy, 06/18/25 s/p ACDF 11/2024 with GA-ETT 7.5 - no anesthesia issues, but daughter reports patient aspirated upon returning to SNF, required antibiotics. I reported this to surgical team with rec for aspiration precautions during planned extended stay post-op No recent illness Denies CP/SOB at rest. Acitivity very limited. Mostly w/c bound. 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 Reports dysphagia since 11/2024 [facility] admission for bloody emesis requiring 1 unit PRBC - EGD showed non-erosive esophagitis Stable at PCP f/u visit 03/2025 Following [facility] Endocrine for incidental right adrenal mass which appears to have benign characteristics on MRI and nml labs per 04/2025 office visit Also eval'd by renal for incidental finding of renal lesion. None on f/u MRI. PMFSH Active Problems Active Problems: All Active Problems Renal lesion (Acute) Adrenal nodule (Acute) Upper GI bleeding (Acute) Dysuria (Acute) Urinary tract infection (Acute) S/P cervical spinal fusion (Acute) Stroke (Acute) Mild recurrent major depression (Acute) Essential hypertension (Acute) Shoulder joint pain (Acute) Muscle pain (Acute) Degeneration of cervical intervertebral disc (Acute) Brachial radiculitis (Acute) Cervical spinal cord compression (Acute) Rectus diastasis (Acute) Shoulder subluxation, left (Acute) History of stroke (Acute) Spasticity (Acute) Severe flexion contractures of all joints (Acute) Enlarged prostate with lower urinary tract symptoms (LUTS) (Acute) Renal cyst (Acute) Lower extremity pain (Acute) Lumbar spinal stenosis (Acute) Cervical spinal stenosis (Acute) PAD (peripheral artery disease) (Acute) Anxiety (Acute) Annual physical exam (Acute) Polyarthritis (Acute) Spastic hemiparesis of left dominant side (Acute) Spastic hemiplegia affecting right dominant side (Acute) Spastic hemiparesis affecting dominant side (Acute) Contracture, left hand (Acute) Bilateral knee contractures (Acute) Elevated PSA (Acute) Insomnia (Acute) Fibromyalgia (Acute) GERD (gastroesophageal reflux disease) (Acute) Hypovitaminosis D (Acute) Lumbar degenerative disc disease (Acute) Past Medical History Medical History History of blood transfusion (~03/27/25) History of GI bleed (~03/27/25) History of airway aspiration (~11/2024) Dysphagia History of stroke (~2021) Hx of varicose veins Depression COVID-19 Numbness HTN (hypertension) Spastic hemiparesis of left dominant side Spastic hemiplegia affecting right dominant side Spastic hemiparesis affecting dominant side Contracture, left hand Bilateral knee contractures Elevated PSA Moderate major depression Insomnia Fibromyalgia GERD (gastroesophageal reflux disease) Hypovitaminosis D Lumbar degenerative disc disease Family History Family History Father Diabetes Hypertension Liver cancer Mother Diabetes Hypertension Stroke Other Substance use disorder Family history of problems with anesthesia: No Surgical History Surgical History Hx of spinal surgery (12/11/24) Hx of varicose vein ligation and stripping History of prostate surgery History of shoulder surgery History of laminectomy History of Problems with Anesthesia: No Social History Social History Household Members Other:: intermediate residents Housing: House Housing Other:: intermediate Are you a primary school child care attendant to a significant other at home: No Do you presently have visiting nurse or other home services: No Alcohol intake: former Patient Tobacco Use Status: Former Tobacco user Tobacco use type: Cigarette Cigarettes Per Day: 3 e-Cigarette/Vaping Use: Never Used Second Hand Smoke Exposure: No Use of substances other than those prescribed or required for medical reasons: No Have you been hit, kicked, punched, or otherwise hurt by someone within the past year? If so, by whom?: No Are you DNR?: No Advance Directives: No Advance Directives Information Provided: Yes Advance Directives on File: No Advance Directives Date on File: 09/06/22 service: No Current occupational status: disabled Cognitive needs: Yes (cane) Hearing needs: No Vision needs: Yes (reading glasses) Meds Allergies Allergy/AdvReac Type Severity Reaction Status Date / Time Penicillins Allergy Severe Rash Verified 05/13/25 13:12 tramadol Allergy Unknown inadequate Verified 05/13/25 13:12 response Home Medications ?Medication ?Instructions ?Recorded ?Confirmed ?Last Taken ?Type chlorhexidine gluconate 0.12 % 15 ml buccal DAILY 09/1305/13/25 Unknown History mouthwash (Periogard) guaifenesin 100 mg/5 mL oral liquid 400 mg PO Q6H PRN Congestion 11/18/24 06/11/25 Unknown History diclofenac sodium 1 % topical gel 4 g topical QID 11/1805/13/25 Unknown History fluticasone propionate 50 spray intranasal 03/10/25 Unknown History mcg/actuation nasal spray,suspension polyvinyl alcohol 1.4 % eye drops drp ophthalmic (eye) DAILY PRN Dry 04/23/25 05/13/25 Unknown History Eyes baclofen 20 mg tablet 10 mg PO TID PRN spasms 05/21 11/11 Unknown History duloxetine 30 mg capsule,delayed 60 mg PO BID 06/11/25 Unknown History release omeprazole 20 mg capsule,delayed 20 mg PO DAILY 06/11/25 06/17/25 History release Exam Height,Weight and Vital Signs: Height 5 ft 6 in Weight 83.3 kg Last Vital Signs Pulse 72 06/11/25 12:21 Resp 16 06/11/25 12:21 BP 96/51 L 06/11/25 12:21 Pulse Ox 95 06/11/25 12:21 O2 Del Method Room Air 06/11/25 12:21 Pertinent Lab Results Pertinent Lab Results: Lab Results 06/11/25 06/11/25 Range/Units 13:29 Unknown WBC 8.6 (4.8-10.8) X10*3/uL RBC 4.80 (4.60-5.80) X10*6/uL Hgb 10.8 L (14.0-18.0) g/dl Hct 35.7 L (42.0-52.0) % MCV 74.4 L (80.0-98.0) fL MCH 22.5 L (27.0-33.0) pg MCHC 30.3 L (31.0-36.0) g/dl RDW 15.8 (11.0-16.0) % Plt Count 260 (160-400) X10*3/uL MPV 9.9 (9.4-12.4) fL Absolute Nucleated RBC 0.000 (0.0-0.012) X10*3/uL Nucleated RBC % (auto) 0.0 (0.0-0.2) /100WBC Sodium 145 (135-145) mmol/L Potassium 4.0 (3.3-5.1) mmol/L Chloride 108 (96-108) mmol/L Carbon Dioxide 33 H (22-29) mmol/L Anion Gap 8 L (12-20) BUN 14 (9-16) mg/dL Creatinine 0.80 (0.5-1.4) mg/dL Estim Creat Clear Calc 79.5 Estimated GFR > 60 Random Glucose 93 (60-115) mg/dL Calcium 8.8 (8.4-10.2) mg/dL Narrative Narrative: EKG 05/2025 Vent. Rate : 68 BPM Atrial Rate : 68 BPM P-R Int : 150 ms QRS Dur : 94 ms QT Int : 382 ms P-R-T Axes : 42 -1 39 degrees QTcB Int : 406 ms Normal sinus rhythm Normal ECG When compared with ECG of 04-Sep-2022 06:04, T wave inversion no longer evident in Anterior leads MR abdomen wo/w con 04/2025 IMPRESSION: 1. Limited examination due to patient motion. 2. 2.1 cm right adrenal adenoma without change since 07/09/2011. 3. No right renal mass is identified. Airway Mallampati Class: III TM Dist: >3cm Neck ROM: Full Heart: RRR Lungs: CTAB Assessment and Plan Assessment Anesthesia Assessment: Anesthesia Plan Discussed and PAT Visit Final Anesthetic Review Family History of Problems with Anesthesia: No History of Problems with Anesthesia: No Documented by User: Meryl Reyes MD 06/17/25 08:34 [facility] Past Medical History Medical History History of blood transfusion (~03/27/25) History of GI bleed (~03/27/25) History of airway aspiration (~11/2024) Dysphagia History of stroke (~2021) Hx of varicose veins Depression COVID-19 Numbness HTN (hypertension) Spastic hemiparesis of left dominant side Spastic hemiplegia affecting right dominant side Spastic hemiparesis affecting dominant side Contracture, left hand Bilateral knee contractures Elevated PSA Moderate major depression Insomnia Fibromyalgia GERD (gastroesophageal reflux disease) Hypovitaminosis D Lumbar degenerative disc disease Family History Family History Father Diabetes Hypertension Liver cancer Mother Diabetes Hypertension Stroke Other Substance use disorder Surgical History Surgical History Hx of spinal surgery (12/11/24) Hx of varicose vein ligation and stripping History of prostate surgery History of shoulder surgery History of laminectomy Social History Social History Household Members Other:: intermediate residents Housing: House Housing Other:: intermediate Are you a primary school child care attendant to a significant other at home: No Do you presently have visiting nurse or other home services: No Alcohol intake: former Patient Tobacco Use Status: Former Tobacco user Tobacco use type: Cigarette Cigarettes Per Day: 3 e-Cigarette/Vaping Use: Never Used Second Hand Smoke Exposure: No Use of substances other than those prescribed or required for medical reasons: No Have you been hit, kicked, punched, or otherwise hurt by someone within the past year? If so, by whom?: No Are you DNR?: No Advance Directives: No Advance Directives Information Provided: Yes Advance Directives on File: No Advance Directives Date on File: 09/06/22 service: No Current occupational status: disabled Cognitive needs: Yes (cane) Hearing needs: No Vision needs: Yes (reading glasses) Meds Allergies Allergy/AdvReac Type Severity Reaction Status Date / Time Penicillins Allergy Severe Rash Verified 05/13/25 13:12 tramadol Allergy Unknown inadequate Verified 05/13/25 13:12 response Home Medications ?Medication ?Instructions ?Recorded ?Confirmed ?Last Taken ?Type chlorhexidine gluconate 0.12 % 15 ml buccal DAILY 09/1305/13/25 Unknown History mouthwash (Periogard) guaifenesin 100 mg/5 mL oral liquid 400 mg PO Q6H PRN Congestion 11/18/24 06/11/25 Unknown History diclofenac sodium 1 % topical gel 4 g topical QID 11/1805/13/25 Unknown History fluticasone propionate 50 spray intranasal 03/10/25 Unknown History mcg/actuation nasal spray,suspension polyvinyl alcohol 1.4 % eye drops drp ophthalmic (eye) DAILY PRN Dry 04/23/25 05/13/25 Unknown History Eyes baclofen 20 mg tablet 10 mg PO TID PRN spasms 05/21 11/11 Unknown History duloxetine 30 mg capsule,delayed 60 mg PO BID 06/11/25 Unknown History release omeprazole 20 mg capsule,delayed 20 mg PO DAILY 06/11/25 06/17/25 History release Assessment and Plan Assessment Anesthesia Assessment: Chart Reviewed Final Anesthetic Review NPO: Yes ASA Class: III Final Preanesthetic Review: No Changes in Pt Med Stat, Meds/Allgs Chart Reviewed, Consent Obtained/Reviewed and Anes Risks/Benef Reviewed Patient Risk: Intermediate Procedure Risk: Intermediate Anesthetic Plan Anesthetic Plan: GA and Agree w/ Assess. and Plan Disposition: Standard PACU
[2025-06-11 14:41] LABS: Hematocrit 35.7 % (42.0-52.0); Hemoglobin 10.8 g/dl (14.0-18.0); Mean Corpuscular HGB Conc 30.3 g/dl (31.0-36.0); Mean Corpuscular Hemoglobin 22.5 pg (27.0-33.0); Mean Corpuscular Volume 74.4 fL (80.0-98.0); NRBC Abs Auto 0.000 X10*3/uL (0.0-0.012); NRBC Pct Auto 0.0 /100WBC (0.0-0.2); Platelet Count 260 X10*3/uL (160-400); Red Blood Count 4.80 X10*6/uL (4.60-5.80); White Blood Count 8.6 X10*3/uL (4.8-10.8)
[2025-06-11 15:05] LABS: Anion Gap 8 (12-20); Blood Urea Nitrogen 14 mg/dL (9-16); Calcium 8.8 mg/dL (8.4-10.2); Carbon Dioxide 33 mmol/L (22-29); Chloride 108 mmol/L (96-108); Creatinine Clr Calc Pharmacy 79.5; Estimated Glomerular Filt Rate > 60; Potassium 4.0 mmol/L (3.3-5.1); Sodium 145 mmol/L (135-145)
[2025-06-17] VITALS (11 sets, daily range): BP systolic 110–146; BP diastolic 54–89; PULSE 64–81; RESP 13–20; TEMP 35.8–36.5; O2SAT 92–100; BMI 30.2; BMI 30.4
--- NOTE | ~2025-06-17 | FL_ITS ---
EXAMINATION: FL GUIDANCE ONLY HISTORY: C4-5 LAMINECTOMY COMPARISON: Correlation is made with plain films of the cervical spine dated 12/16/2024. TECHNIQUE: Fluoroscopy time: 2.6 seconds. Cumulative Dose: 0.4260 mGy. DAP: 0.1664 Gycm2 Images: 1. FINDINGS: A single fluoroscopic spot film of the cervical spine in the lateral projection demonstrates a probe directed toward the C4-5 intervertebral disc space from a posterior approach. FL/FL guidance in OR IMPRESSION: Fluoroscopy during procedure. Please see procedure report for additional information. Electronically signed by: Marek March MD 06/17/2025 11:38 AM EDT
--- NOTE | 2025-06-17 06:58 | MHC.SHP ---
Pre-Procedural Eval Section A - 24 Hr Update-Section A only Date of Service: 06/17/25 Section B - Complete if H&P > 30 days Chief Complaint: Unspecified cord compression Allergies: Allergies Allergy/AdvReac Type Severity Reaction Status Date / Time Penicillins Allergy Severe Rash Verified 05/13/25 13:12 tramadol Allergy Unknown inadequate Verified 05/13/25 13:12 response Review of Systems Sugical H&P ROS: Negative: Constitution, Cardiovascular, Respiratory, Neurological, Psychiatric, Hem-Onc, Allergic/Immunologic, Gastrointestinal, Genitourinary, Musculoskeletal, Integumentary, Endocrine and Eyes/Ears/Nose/Throat Exam Surgical H&P Exam: Not Evaluated: HEENT, Not Evaluated: Heart, Not Evaluated: Lungs, Not Evaluated: Extremities, Not Evaluated: Abdomen, Not Evaluated: Skin and Not Evaluated: Neurological Exam Comment: The patient is awake, alert, in no acute distress. Proposed surgical incision site is clean, dry, with no signs of recent trauma. Plan Diagnosis/Plan: Unchanged I have reviewed the history and physical and performed a pertinent physical examination on my patient. No changes have occurred unless specified. Plan remains the same, C4-5 laminectomy Time Spent With Patient Time: Total time managing care of this patient today __6__ minutes.
[2025-06-17] MEDS: Lactated Ringers 1,000 ML 100 ML IVCONT (08:06)
--- NOTE | 2025-06-17 11:26 | W.PM.OPN ---
Operative Note Operative Note Date of Service: 06/17/25 Narrative: Preoperative Diagnosis: cervical myelopathy Operation: C4 and C5 laminectomy Consent Informed Consent was obtained for this operation. I have explained the nature, purpose and benefits of the operation. I have discussed the risks and benefit of the operation including possible complications or adverse events with patient/family. Alternative(s) were discussed with the patient with their relative benefits and risks as well as the consequences of not accepting the operation were included in obtaining consent. Surgeon: SWATHI AGUIRRE MD, PHD Procedure Assisted By: Dong Herrera Description of Procedure This patient underwent a C4-C5 anterior diskectomy and fusion for cervical myelopathy with quadriparesis. Postoperatively he had an increase in right arm weakness. Postoperative MRIs still showed posterior compression at C4-5. The symptoms did not further improve and therefore we decided to offer him a posterior decompression to make sure that the spinal cord has the most space for recover. The procedure complications were explained. The patient was consented. The patient was brought to the operating room and endotracheally intubated. The patient was turned in prone position on the gel rolls with the head fixated in Devlin. Prep and drape was done followed by timeout. The blood pressure was systolic below 60 and therefore we put the patient in Trendelenburg and gave vasopressors. When the blood pressure stabilized the surgery was started. A midcervical incision was made. Dissection was carried down the midline to avoid blood loss. The paravertebral muscles were released to expose the C4 and C5 laminae in preparation for the laminectomy. An x-ray confirmed the correct levels. A Leksell was used to remove the spinous processi in preparation for the laminectomy. A # 2. and 3 Kerrison were used to complete a C4 and C5 laminectomy. The laminectomy was extended laterally near flush with the pedicles. This resulted in good decompression of the spinal cord. Extensive hemostasis was done after which the physician advertising assistant manager closed the fascia and subcutaneous layer with 2-0 Vicryl. Gracia were used to approximate the incision. All sponge and needle counts were correct. The Devlin was removed. Patient was extubated and transported in a stable base to the recover room. Anesthesia: General Estimated Blood Loss (ml): 20 mL Duration of Surgery: Under 60 Minutes Postoperative Plan: Discharge to home
--- NOTE | 2025-06-17 16:07 | PHA.MEDREC ---
Addendum entered by Patti Parekh RPh 06/17/25 16:57: Reviewed by [facility] Original Note: Pharmacy Consult ? Medication Reconciliation Pharmacy has reviewed the medication reconciliation done by nursing. Utilized list from [facility] # [phone] to confirm med list.
[2025-06-18 03:49] VITALS: BP 121/57; PULSE 81; RESP 18; O2SAT 95
[2025-06-18] MEDS: oxyCODONE HCl Immed Release 5 MG TABLET 10 MG PO ×2 (06:38→10:30)
[2025-06-18 07:37] VITALS: BP 140/64; PULSE 80; RESP 15; TEMP 37.2; O2SAT 92
--- NOTE | 2025-06-18 08:24 | HO.POSTANES ---
Post Anesthesia Evaluation Post Anesthesia Evaluation Date of Service: 06/18/25 Vital Signs: Vital Signs Temp Pulse Resp BP Pulse Ox O2 Del Method 06/18/25 07:37 98.9 F 80 15 140/64 H 92 Room Air 06/18/25 03:49 81 18 121/57 L 95 Room Air 06/17/25 20:28 128/64 Anesthesia: General Endotracheal-GETA Mental Status: Awake Pain Control: Satisfactory Nausea/Vomiting: None Hydration: Adequate Anesthesia-Related Issues: No Anes. Related Issues
[2025-06-18] MEDS: Flu Vacc TS2025-26(6mo up)/PF 0.5 ML SYRINGE IM (08:25)
--- NOTE | 2025-06-18 09:35 | PM.DS ---
DS: Providers Provider Date of Service: 06/18/25 Date of discharge: 06/18/25 Primary care physician: Leora Mendez MD DS: Summary Time Attestation Discharge Coordination Time (in mins): 12 Quality: Safe Use of Opioids Does Pt have an Active Cancer Diagnosis on the Problem List?: No Quality: Stroke Does the patient have a stroke diagnosis?: No Physical Exam Vital Signs: Vital Signs: Last Vital Signs Temp 98.9 F 06/18/25 07:37 Pulse 80 06/18/25 07:37 Resp 15 06/18/25 07:37 BP 140/64 H 06/18/25 07:37 Pulse Ox 92 06/18/25 07:37 O2 Del Method Room Air 06/18/25 07:37 O2 Flow Rate 2 06/17/25 12:49 BMI result Body Mass Index 30.4 Discharge Plan Discharge Patient Disposition: Home, Self-Care Referrals: Leora Montes MD [Primary Care Provider, Internal Medicine] - 1 Week Discharge Medications: New sulfamethoxazole-trimethoprim [Bactrim DS] 800-160 mg tablet 1 tab PO BID Qty: 4 0RF Continued finasteride 5 mg tablet 5 mg PO BEDTIME 90 Days Qty: 90 1RF magnesium oxide 400 mg (241.3 mg magnesium) tablet 400 mg PO DAILY 90 Days Qty: 90 1RF mirtazapine 15 mg tablet 7.5 mg PO BEDTIME Qty: 45 1RF sennosides [senna] 8.6 mg tablet 8.6 mg PO BEDTIME 90 Days Qty: 90 1RF terazosin 2 mg capsule 8 mg PO BEDTIME 90 Days Qty: 360 1RF amlodipine 5 mg tablet 5 mg PO DAILY 90 Days Qty: 90 1RF pregabalin 75 mg capsule 75 mg PO TID 30 Days Qty: 90 0RF docusate sodium [Colace] 100 mg capsule 200 mg PO BID Qty: 120 0RF diclofenac sodium 1 % Gel 4 g TOPICAL Q6H PRN (Reason: Pain) Rx Instructions: apply to single knee, ankle, foot; for foot includes sole/toes/top of foot baclofen 20 mg tablet 10 mg PO TID duloxetine 30 mg capsule,delayed release(DR/EC) 30 mg PO BID magnesium hydroxide [Milk of Magnesia] 400 mg/5 mL Suspension 30 ml PO DAILY PRN (Reason: Constipation) Rx Instructions: If no BM in 2 days pantoprazole 40 mg tablet,delayed release (DR/EC) 40 mg PO BID@0630,1630 Artificial Tears (PF) 0.1-0.3 % Dropperette 2 drp OPHTHALMIC (EYE) Q2H PRN (Reason: Dry Eye(S)) Rx Instructions: both eyes chlorhexidine gluconate [Periogard] 0.12 % mouthwash 20 ml buccal BEDTIME guaifenesin 100 mg/5 mL liquid 400 mg PO Q6H PRN (Reason: Congestion) oxycodone 5 mg tablet 5 mg PO Q8H PRN (Reason: pain) 30 Days Qty: 90 0RF Rx Instructions: Partial Fill upon patient request. acetaminophen 500 mg tablet 1,000 mg PO TID 30 Days Qty: 180 11RF fluticasone propionate 50 mcg/actuation spray,suspension 2 spray intranasal BEDTIME Discharge Orders: Discharge Order (Routine); Ordered 06/18/25 Ordered By: Chidi Teague Diet: Advance to usual diet Activity on Discharge: As tolerated Activity Restrictions/Additional Instructions: After your spinal surgery we ask you to observe the following restrictions/guidelines: Activity: It is normal to feel some discomfort as you increase your activity, but that will improve with time. We ask you avoid heavy lifting or acitivities that cause pain. As a general rule, 8lbs is a safe limit for lifting right after surgery. Walk as much as you feel comfortable but not to exhaustion. You will feel extra tired the first few days after surgery. Stay well hydrated. It is OK to walk up and down stairs You may return to driving when you are off narcotics (such as vicodin, oxycodone, dilaudid, etc), and you are back to normal functional capacity. If you have any concerns please check with office before driving. Return to work is specific to each patient and each surgery, so please speak with your doctor/PA at first follow up. Please bring paperwork such as FMLA at that time if you need it filled out. Medications: Please continue to take the pain medication that you are already prescribed. Call the office if you need additional pain medication. Please order picker/assembler your Bactrim DS from [facility] pharmacy and take this medication for the next 2 days. We recommend you take 500mg Tylenol every 4 hours for the first week after surgery, if you do not have any liver issues and can tolerate this medication. Do not exceed 4,000mg daily. We also recommend you take Ibuprofen 600mg every 8 hours for the first week after surgery starting on post op day 1, ?if you do not have any kidney or sugar control issues and can tolerate this medication. Do not exceed 2,000mg daily. If you are on a narcotic, it is a good idea to take a stool softener such as colace or senna to avoid constipation If you take blood thinner such as aspirin, Plavix, Coumadin, Effient, Eliquis etc for conditions such as Afib, DVT, Pulmonary embolus, coronary disease, stents etc please speak with your surgeon about specific details as to when you can resume these medications. You can resume NSAIDs on post op day 1 (eg: Motrin, Naproxen, etc). Follow up: Please call the office, , after surgery to arrange a 3 week follow up for wound check. Wound Care: You may remove your dressing on the first day after surgery. ?You may ?leave open to air. Please do not remove the steri strips underneath. they will fall off on their own in one week. IT IS NORMAL FOR THE WOUND TO OOZE OR BE BLOODY FOR A FEW DAYS AFTER SURGERY. ?IF THIS HAPPENS JUST PLACE NEW DRESSING OVER IT TO AVOID STAINING CLOTHES. You may shower on post op day # 1 We ask that you do not let the water soak the wound. If it does get wet, just towel dry lightly. Please do not scrub your incision or place any type of chemical/ointment on the wound. No tub baths, pools or jacuzzis for one month. If you have any leaking or redness from your wound, or fevers, please call the office. Print Language: Syriac
--- NOTE | 2025-06-18 09:51 | HO.NEURO.PN ---
Neurosurgery Operative Note Date of Service: 06/18/25 Narrative: POD: 1 Procedure: C4-5 posterior cervical decompresison Jose is a pleasant 74-year-old male who underwent C4-5 [address] with Dr. Jones yesterday. He was seen sitting upright in bedside chair in room 384 this morning eating breakfast, assisted by a SEMI CONDUCTOR ASSEMBLER. He is overall well-appearing, reporting some mild posterior neck pain. He states that the function of his arms feels slightly better than it was prior to surgery. He also reports some improvement to the numbness of his upper extremities. He has been tolerating his current diet, voiding regularly, and is otherwise well. Afebrile, vital signs stable. No new neurological deficits. Posterior neck dressing has some staining without signs of hematoma. No active sanguineous drainage. Area is dry. Plan: Patient meets criteria to be medically discharged back to his [facility]. He was seen at bedside with Dr. Jones. He will need to follow up in clinic with us 10 days out from surgery for suture removal. He may continue his currently prescribed oxycodone 5mg medication for which a total quantity of 90 was filled. I sent in a 2 day course of Bactrim DS to the pharmacy here at [facility]. He will need to pick this up before he returns to his [facility]. Chidi Jones MD,PhD [facility]
[2025-06-18] MEDS: Tetrahydrozoline HCl 0.05% Oph 15 ML DRPBTL 1 DROP EYE-BOTH (10:42)
--- NOTE | 2025-06-18 11:51 | MHC.CM.PN ---
Addendum entered by Regina Loya RN 06/18/25 13:27: Jacob, [facility] warehouse shift supervisor: [phone] Addendum entered by Regina Loya RN 06/18/25 13:26: [facility] paperwork received. Message to spine PA. staff to picker/puller patient's wheelchair. Addendum entered by Regina Loya RN 06/18/25 12:39: She is also aware that patient will return w/ rx for bactrim x 2 days. Addendum entered by Regina Loya RN 06/18/25 12:38: Spoke w/ Raysa URIAS and requested paperwork for fourth time. She reports it will be emailed to CM. She is aware of dc time and does not oppose patient returning without paperwork. Addendum entered by Regina Loya RN 06/18/25 12:00: Per BANDAR Tabares RN, she has paperwork to be signed by spine PA. Requested x3 that Raysa send paperwork. Provided email and fax number. She is aware patient will dc at 2pm. Original Note: Met with patient for CM assessment/dc planning, printing shop supervisor assisting. Patient lives in a [facility]. Staff assists w/ all care. Per RN, patient able to walk short distances w/ quad cane, mostly uses w/c. PCP Leora Mendez HCP on file and verified. Patient is own decision maker. DP: Home w/ [facility] for SN/PT. BLS transport scheduled for 2pm. aware. BRIDGETT Tabares [phone]
[2025-06-18 14:06] VITALS: BP 105/56; PULSE 76; RESP 16; TEMP 36.6; O2SAT 92
--- NOTE | 2025-06-18 14:08 | W.MHC.F2F ---
Service Date Service Date: 06/18/25 Encounter Date of encounter: 06/18/25 Reasons for Services Signs and symptoms assessed: S/P C4-5 posterior cervical decompression Reason for senior care: neurological assessment, wound care, postoperative assessment and/or care and medication management Reason for physical therapy: home safety and mobility, gait/transfer training and ADL training Homebound: Leaving the home is medically contraindicated at this time without the asist of a device and/or another person due th the listed conditions above and below. Reason homebound: unsteady gait / fall risk, pain with ambulation, shortness of breath at rest and weakness related to hospital stay Certification: Based on the above findings, I certify that this patient is confined to the home and needs intermittent senior care care, physical therapy and/or speech therapy, or continues to need occupational therapy. The patient is under my care, and I have initiated the establishment of the plan of care. The patient will be followed by a physician who will periodically review the plan of care. Time Spent With Patient Time: Total time managing care of this patient today _16___ minutes.
== END 2025-06-18 14:27 | disposition home health service (06) ==
LOC: HO.SSS 07:14 → HO.S3 13:03
PROVIDERS: Nurse Practitioner; PCP Internal Medicine; Visit Provider Neurological Surgery
PROC: (CPT 63045; principal; 2025-06-17 09:30)
DX: M50.021 Cervical disc disorder at C4-C5 level with myelopathy (principal); G95.20 Unspecified cord compression; I63.9 Cerebral infarction, unspecified; G81.11 Spastic hemiplegia affecting right dominant side; G81.12 Spastic hemiplegia affecting left dominant side; G83.24 Monoplegia of upper limb affecting left nondominant side; M79.7 Fibromyalgia; I10 Essential (primary) hypertension; Z23 Encounter for immunization; Z79.899 Other long term (current) drug therapy; Z88.0 Allergy status to penicillin; Z88.5 Allergy status to narcotic agent; Z98.1 Arthrodesis status; Z87.891 Personal history of nicotine dependence
CPT/HCPCS: 63045; 63048; 36415; 80048; 85027; 90656; 93005; 97162; J0131; J0618; J1100; J2003; J2371; J2405; J2598; J2704; J3010; J3374

== ENCOUNTER → 2025-06-17 07:13 | Outpatient (BNV) | payer MEDICARE, MEDICAID, SELFPAY | PROVIDERS: PCP Internal Medicine; Visit Provider Neurological Surgery | DX: Z48.89 Encounter for other specified surgical aftercare (principal) | CPT/HCPCS: 63045; 63048; 99024; 99499; G0180 ==

== ENCOUNTER 2025-06-19 12:41 | Emergency (ER) | payer MEDICARE, MEDICAID, SELFPAY ==
--- NOTE | ~2025-06-19 | CT_ITS ---
EXAMINATION: CT CHEST ANGIOGRAPHY WITH IV CONTRAST INDICATION: low sats after surgery 2 days ago COMPARISON: Previous chest x-ray from earlier the same day TECHNIQUE: Helical CT scan of the chest was performed following administration of intravenous contrast (65 mL Omnipaque 350). The contrast bolus was timed to optimally opacify the pulmonary arteries. Thin sections were obtained through the pulmonary arteries. Coronal and sagittal reformatted images were generated. 3D/MIP reconstructed images are also obtained and reviewed. This CT exam was performed with one or more of the following dose reduction techniques: automated exposure control, adjustment of the mA and/or kV according to patient size, use of iterative reconstruction technique. DLP: 522 mGy-cm CHEST: THYROID: The thyroid gland is unremarkable. PULMONARY ARTERIES: No intraluminal filling defects are identified within the pulmonary arteries to suggest pulmonary emboli. Ulnar arteries are normal in caliber, main pulmonary artery measuring 2.8 cm. No evidence of right heart strain. No reflux of contrast into the liver. LUNGS: Low lung volumes and elevated right hemidiaphragm. Right lower lobe atelectasis or small infiltrate. Minimal subsegmental atelectasis in the left lower lobe. 7 mm right upper lobe nodule axial image 61 series 7. MEDIASTINUM: There is no mediastinal lymphadenopathy. SHANIA: There is no hilar lymphadenopathy. CARDIOVASCULATURE: The heart is normal in size. There is no pericardial effusion. The thoracic aorta is normal in caliber. DEGREE OF CORONARY CALCIFICATION: mild PLEURA: There is no pleural effusion. No pneumothorax. MAIN AIRWAYS: The mainstem bronchi and proximal branches are patent. AXILLA: There is no axillary lymphadenopathy. UPPER ABDOMEN: 2.4 cm low-attenuation right adrenal nodule. Hounsfield units post-IV contrast measure 15 which is indeterminate. BONES AND SOFT TISSUES: Postsurgical changes to the visualized cervical spine. There is a fluid collection seen in the soft tissues of the posterior neck. This measures 2.5 x 5.5 cm in transverse and AP dimension. This contains a small focus of air. This has low Hounsfield units measuring 13 making hematoma unlikely. Degenerative changes of the cervical and lumbar spine. Degenerative changes at of the left shoulder. Right shoulder replacement. CT/CT angio chest PE protocol IMPRESSION: No evidence of pulmonary emboli. Right lower lobe atelectasis or small infiltrate. A 7 mm right upper lobe nodule. Recommend chest CT follow-up in 6-12 months. Fluid collection in the posterior neck overlying the spine. This contains a small amount of air. This may represent a postoperative fluid collection. Cannot exclude abscess. 2.4 cm right adrenal nodule, indeterminate. Fleischner Criteria for pulmonary nodule follow-up SOLID NODULES: Low risk patient: <6mm: no follow-up 6-8mm: 6 month follow-up CT >8mm: PET/Biopsy/ 3 month follow-up CT High risk patient: <6mm: 12 month follow-up CT 6-8mm: 6 month follow-up CT >8mm: PET/Biopsy/ 3 month follow-up CT SUB-SOLID/GROUNDGLASS NODULES: All patients: > or = 6mm: 6 month follow-up CT *Please note that in patients in the following categories, the Fleischner criteria do not apply: Immunocompromised, lung cancer screening population, age below 35, and patients with known malignancy Electronically signed by: Clare Rubio MD 06/19/2025 03:37 PM EDT
--- NOTE | ~2025-06-19 | XR_ITS ---
EXAMINATION: XR CHEST CLINICAL INFORMATION: low oxygen sats COMPARISON: None available. TECHNIQUE: Frontal view of the chest was obtained. FINDINGS: Patient is rotated to the right. There are low lung volumes. Heart and mediastinal structures are within normal limits. Total joint replacement is noted at the right shoulder. XR/XR chest 1V IMPRESSION: Low lung volumes. Right shoulder replacement. Electronically signed by: Liu Olson MD 06/19/2025 01:50 PM EDT
[2025-06-19 12:46] VITALS: BP 152/66; BP 85/51; PULSE 62; PULSE 65; RESP 16; TEMP 36.7; O2SAT 95; O2SAT 97; BMI 31.9
--- NOTE | 2025-06-19 13:00 | ED_ITS ---
HPI - General Adult General Chief complaint: Dyspnea Stated complaint: HYPOXIA Time Seen by Provider: 06/19/25 13:00 History of Present Illness ED Provider: Moses FAYE narrative: The patient is a 74-year-old male who lives at a fpc. The patient had scheduled cervical spine surgery 2 days ago on SundayJune [address] Que Jones. He had a C4/C5 laminectomy to try to improve cervical myelopathy associated with quadriparesis. The patient came to the hospital on an elective basis 2 days ago for the surgery and spent the night overnight. He was discharged yesterday back to his fpc where he lives. This morning the patient felt short of breath and apparently his blood pressure was low and so an ambulance was called and he was brought to the hospital. He does not normally have an oxygen requirement. The patient is not currently complaining of any significant pain. He denies headache, neck pain, chest pain or pain with breathing, abdominal pain, nausea, vomiting. Related Data Home Medications ?Medication ?Instructions ?Recorded ?Confirmed chlorhexidine gluconate 0.12 % 20 ml buccal BEDTIME 06/17/25 mouthwash (Periogard) guaifenesin 100 mg/5 mL oral liquid 400 mg PO Q6H PRN Congestion 11/18/24 06/11/25 diclofenac sodium 1 % topical gel 4 g topical Q6H PRN Pain 11/27/24 06/17/25 fluticasone propionate 50 2 spray intranasal BEDTIME 0 03/10/25 06/17/25 mcg/actuation nasal spray,suspension baclofen 20 mg tablet 10 mg PO TID spasms 06/11/25 06/17/25 duloxetine 30 mg capsule,delayed 30 mg PO BID 06/11/25 06/17/25 release dextran 70-hypromellose (PF) 0.1 2 drp ophthalmic (eye ) Q2H PRN Dry 06/17/25 06/17/25 %-0.3 % eye drops in a dropperette Eye(S) (Artificial Tears (PF)) magnesium hydroxide 400 mg/5 mL 30 ml PO DAILY PRN Con stipation 06/17/25 06/17/25 oral suspension (Milk of Magnesia) pantoprazole 40 mg tablet,delayed 40 mg PO BID@0630,16 30 06/17/25 06/17/25 release Previous Rx's ?Medication ?Instructions ?Recorded oxycodone 5 mg tablet 5 mg PO Q8H PRN pain 30 days #90 11/18/24 tabs finasteride 5 mg tablet 5 mg PO BEDTIME 90 days #90 tabs 03/03/25 magnesium oxide 400 mg (241.3 mg 400 mg PO DAILY 90 da ys #90 tabs 03/03/25 magnesium) tablet mirtazapine 15 mg tablet 7.5 mg (1/2 x 15 mg) PO BEDT JANICE 03/09/25 #45 tabs acetaminophen 500 mg tablet 1,000 mg (2 x 500 mg) PO T ID pain 04/01/25 30 days #180 tabs sennosides 8.6 mg tablet (senna) 8.6 mg PO BEDTIME 90 days #90 tabs 04/20/25 terazosin 2 mg capsule 8 mg (4 x 2 mg) PO BEDTIME 9 0 days 04/20/25 #360 caps amlodipine 5 mg tablet 5 mg PO DAILY 90 days #90 ta bs 05/11/25 pregabalin 75 mg capsule 75 mg PO TID 30 days #90 cap s 06/13/25 docusate sodium 100 mg capsule 200 mg (2 x 100 mg) PO BID #120 06/17/25 (Colace) caps sulfamethoxazole 800 1 tab PO BID surgical prophy laxis 06/18/25 mg-trimethoprim 160 mg tablet #4 tabs (Bactrim DS) Allergies Allergy/AdvReac Type Severity Reaction Status Date / Time Penicillins Allergy Severe Rash Verified 06/19/25 12:53 tramadol Allergy Unknown inadequate Verified 06/19/25 12:53 response Review of Systems 2 Review of Systems: Yes all other systems are reviewed and are negative [facility] Past Medical History Medical History History of blood transfusion (~03/27/25) History of GI bleed (~03/27/25) History of airway aspiration (~11/2024) Dysphagia History of stroke (~2021) Hx of varicose veins Depression COVID-19 Numbness HTN (hypertension) Spastic hemiparesis of left dominant side Spastic hemiplegia affecting right dominant side Spastic hemiparesis affecting dominant side Contracture, left hand Bilateral knee contractures Elevated PSA Moderate major depression Insomnia Fibromyalgia GERD (gastroesophageal reflux disease) Hypovitaminosis D Lumbar degenerative disc disease Surgical History Hx of spinal surgery (12/11/24) Hx of varicose vein ligation and stripping History of prostate surgery History of shoulder surgery History of laminectomy Family History Family History Father Diabetes Hypertension Liver cancer Mother Diabetes Hypertension Stroke Other Substance use disorder Social History Social History Household Members: Other Household Members Other:: fpc Housing: House Housing Other:: fpc Are you a primary hospice patient care secretary to a significant other at home: No Do you presently have visiting nurse or other home services: Yes Alcohol intake: former Patient Tobacco Use Status: Former Tobacco user Tobacco use type: Cigarette Cigarettes Per Day: 3 e-Cigarette/Vaping Use: Never Used Second Hand Smoke Exposure: No Advance Directives: Yes Advance Directives on File: Yes Advance Directives Date on File: 09/06/22 service: No Current occupational status: disabled Cognitive needs: Yes (cane) Hearing needs: No Vision needs: Yes (reading glasses) Physical Exam ED Vital Signs: Vital Signs - 24 hr 06/19/25 12:46 06/19/25 13:29 06/19/25 13:33 Temperature 98.1 F 97.9 F Pulse Rate 65 70 Respiratory Rate 16 14 Blood Pressure 85/51 L 103/62 Pulse Oximetry 97 94 Oxygen Delivery Method Nasal Cannula Nasal Cannula Oxygen Flow Rate 1 06/19/25 16:08 06/19/25 16:08 06/19/25 18:32 Temperature 97.6 F 98.1 F Pulse Rate 68 67 88 Respiratory Rate 14 14 13 Blood Pressure 127/64 151/77 H Pulse Oximetry 96 93 Oxygen Delivery Method Nasal Cannula Room Air Oxygen Flow Rate 2 06/19/25 19:16 Temperature 98.1 F Pulse Rate 88 Respiratory Rate 13 Blood Pressure 151/77 H Pulse Oximetry 93 Oxygen Delivery Method Room Air Oxygen Flow Rate BMI result Body Mass Index 31.9 Const Other: The patient is a chronically ill-appearing 74-year-old male who was awake and alert. He did not appear in obvious acute distress. HENMT Other: The face is symmetrical. ?Mucous membranes moist. Eyes Other: Pupils are round equal, conjunctivae are clear, extraocular movements intact General: appearance normal, both eyes and all related structures Neck Neck: Yes normal visual inspection and Yes no JVD Resp Other: No obvious increased work of breathing. No adventitious breath sounds. Breath sounds seem fairly clear. No definite wheezes or crackles. Cardio Rate: regular rate Rhythm: regular rhythm Heart sounds: S1 normal heart sound present and S2 normal heart sound present GI Other: The abdomen is soft and seems nontender Skin Other: The skin is dry and unremarkable Neuro Other: The patient is awake and alert. His mental status seems fairly clear. His cranial nerves seem intact. The patient is able to move his arms in his legs but he moves them weakly which I think is his baseline. Extrem Other: No ankle or leg edema. No obvious calf swelling or tenderness. No obvious asymmetry. Medications Administered Discontinued Medications Generic Name Dose Route Start Last Admin Trade Name Freq PRN Reason Stop Dose Admin Albuterol/Ipratropium 3 ml 06/19/25 15:43 06/19/25 16:08 Albuterol/Iprat 2.5/0.5mg 3 Ml Ampul.Neb INHALE 06/19/25 15:44 3 ml ONCE ONE Administration Lactated Ringer's 1,000 mls @ 999 mls/hr 06/19/25 15:45 06/19/25 17:15 Lr IV 06/19/25 16:45 Infused .Q1H1M HANY Infusion Iohexol 100 ml 06/19/25 14:53 06/19/25 14:53 Iohexol 350 Mg/Ml 100 Ml Infus..Btl IV 06/19/25 14:54 65 ml ONCE ONE Administration Medical Decision Making Medical Decision Making [facility] Narrative: The patient is a 74-year-old male who was 2 days postoperative from cervical spine surgery. He had a C4-C5 laminectomy has a scheduled procedure 2 days ago. This was a procedure following a previous decompression procedure to help with some degree of quadriplegia secondary to cervical myelopathy. The patient was discharged from the hospital yesterday to returned to his fpc. This morning the patient had had a complaint of shortness of breath and his blood pressures were mildly low. An ambulance was called and he was brought to the hospital. The patient does not normally have an oxygen requirement. Here his oxygen saturation on room air was in the mid 80s. The patient did not appear obviously ill and he was not tachycardic. A rectal temperature was normal. The patient is 1st blood pressure was low at 85/51 but his blood pressures improved spontaneously. Overall I felt that the patient had to be ruled out for a pulmonary embolism given his new oxygen requirement. However he was really not behaving as if he was having a pulmonary embolism large enough to make him hypoxic and hypotensive. He did not look that ill. He was given nasal oxygen. He was given IV fluids. Labs were sent as a CT pulmonary angiogram was done to rule out a pulmonary embolism. His CBC showed a white count of 9.4, hematocrit of 33.7, and a platelet count of 175. Differential shows 68% neutrophils, 18% lymphocytes. Basic metabolic panel was unremarkable. The CT pulmonary angiogram showed no evidence of pulmonary emboli. There was right lower lobe atelectasis. My overall impression is that the patient has low oxygen saturations are probably secondary to atelectasis rather than a more concerning process. He is afebrile. He does not have an elevated white count. He does not have pulmonary embolism. He has 2- troponins. His EKG is unremarkable. I asked respiratory therapy to give him a bronchodilator treatment and to perform some pulmonary toilet with an incentive spirometer. The patient's oxygen saturations improved in the emergency department. Ultimately he seemed to be consistently 93% on room air. His blood pressure also improved. Ultimately I felt that the patient could be discharged back to his fpc. I informed the spine surgery team of my thinking. I spoke to the nurse from the fpc. I have written an order for oxygen saturations to be checked 2 times a day. I have also written to ask for the patient be assisted with incentive spirometry. Lab Data 06/19/25 13:20 06/19/25 13:20 Labs: Lab Results 06/19/25 06/19/25 06/19/25 Range/Units 13:20 13:21 13:25 WBC 9.4 (4.8-10.8) X10*3/uL RBC 4.52 L (4.60-5.80) X10*6/uL Hgb 10.0 L (14.0-18.0) g/dl Hct 33.7 L (42.0-52.0) % MCV 74.6 L (80.0-98.0) fL MCH 22.1 L (27.0-33.0) pg MCHC 29.7 L (31.0-36.0) g/dl RDW 16.4 H (11.0-16.0) % Plt Count 175 D (160-400) X10*3/uL MPV 10.3 (9.4-12.4) fL Immature Gran % (Auto) 0.2 (0.0-0.4) % Neut % (Auto) 67.9 (45-73) % Lymph % (Auto) 18.0 L (20-40) % [place] % (Auto) 6.7 (2-11) % Eos % (Auto) 7.0 H (0-4) % Baso % (Auto) 0.2 (0-2) % Lymph # (Auto) 1.7 (1.2-4.9) X10*3/uL [place] # (Auto) 0.6 (0.1-1.2) X10*3/uL Eos # (Auto) 0.7 H (0.0-0.4) X10*3/uL Baso # (Auto) 0.0 (0.0-0.2) X10*3/uL Abs Immat Gran (auto) 0.02 (0.00-0.03) X10*3/uL Absolute Neuts (auto) 6.4 (2.0-8.3) x10*3/uL Absolute Nucleated RBC 0.000 (0.0-0.012) X10*3/uL Nucleated RBC % (auto) 0.0 (0.0-0.2) /100WBC PT 11.2 (10.9-12.4) SEC INR 1.0 (0.9-1.1) Sodium 140 (135-145) mmol/L Potassium 4.2 (3.3-5.1) mmol/L Chloride 105 (96-108) mmol/L Carbon Dioxide 30 H (22-29) mmol/L Anion Gap 9 L (12-20) BUN 10 (9-16) mg/dL Creatinine 0.61 (0.5-1.4) mg/dL Estim Creat Clear Calc 108.0 Estimated GFR > 60 Random Glucose 107 (60-115) mg/dL Lactic Acid 1.0 (0.5-2.0) mmol/L Calcium 8.1 L D (8.4-10.2) mg/dL Magnesium 2.3 (1.6-2.6) mg/dL Total Bilirubin 0.3 (0.0-1.0) mg/dL Direct Bilirubin 0.1 (0.0-0.5) mg/dL AST 34 (5-37) U/L ALT 21 (0-40) U/L Alkaline Phosphatase 96 (39-117) U/L Troponin I High Sens 3.2 (<3.5-35.0) ng/L NT-Pro-B Natriuret Pep 56.9 (<300) pg/mL Total Protein 6.1 L (6.5-8.0) g/dL Albumin 3.7 (3.5-5.0) g/dL 06/19/25 Range/Units 17:15 WBC (4.8-10.8) X10*3/uL RBC (4.60-5.80) X10*6/uL Hgb (14.0-18.0) g/dl Hct (42.0-52.0) % MCV (80.0-98.0) fL MCH (27.0-33.0) pg MCHC (31.0-36.0) g/dl RDW (11.0-16.0) % Plt Count (160-400) X10*3/uL MPV (9.4-12.4) fL Immature Gran % (Auto) (0.0-0.4) % Neut % (Auto) (45-73) % Lymph % (Auto) (20-40) % [place] % (Auto) (2-11) % Eos % (Auto) (0-4) % Baso % (Auto) (0-2) % Lymph # (Auto) (1.2-4.9) X10*3/uL [place] # (Auto) (0.1-1.2) X10*3/uL Eos # (Auto) (0.0-0.4) X10*3/uL Baso # (Auto) (0.0-0.2) X10*3/uL Abs Immat Gran (auto) (0.00-0.03) X10*3/uL Absolute Neuts (auto) (2.0-8.3) x10*3/uL Absolute Nucleated RBC (0.0-0.012) X10*3/uL Nucleated RBC % (auto) (0.0-0.2) /100WBC PT (10.9-12.4) SEC INR (0.9-1.1) Sodium (135-145) mmol/L Potassium (3.3-5.1) mmol/L Chloride (96-108) mmol/L Carbon Dioxide (22-29) mmol/L Anion Gap (12-20) BUN (9-16) mg/dL Creatinine (0.5-1.4) mg/dL Estim Creat Clear Calc Estimated GFR Random Glucose (60-115) mg/dL Lactic Acid (0.5-2.0) mmol/L Calcium (8.4-10.2) mg/dL Magnesium (1.6-2.6) mg/dL Total Bilirubin (0.0-1.0) mg/dL Direct Bilirubin (0.0-0.5) mg/dL AST (5-37) U/L ALT (0-40) U/L Alkaline Phosphatase (39-117) U/L Troponin I High Sens 3.0 (<3.5-35.0) ng/L NT-Pro-B Natriuret Pep (<300) pg/mL Total Protein (6.5-8.0) g/dL Albumin (3.5-5.0) g/dL Independent Interpretation I performed an independent interpretation of an: EKG Interpretation: EKG at 13:15 shows normal sinus rhythm at 72 beats per minute and is essentially a normal EKG. No change from previous. Discharge Plan Discharge Clinical Impression: Atelectasis Patient Disposition: Home, Self-Care Instructions: Atelectasis (ED) Additional Instructions: Testing in the emergency room today was reassuring from the point of view of any dangerous process. I think you have a condition known as ?atelectasis. ? This is a condition that often happens after surgery. Atelectasis this is a condition in which the lungs can crinkle up so that they do not fully expand. The best way to try to correct atelectasis is to have a person take very deep breaths every now and then. Please use the incentive spirometer provided once an hour to try to encourage you to take a big breath. Please follow up with your primary care doctor next week and also follow up with your spine surgeon. Return to the emergency room if significantly worse. Prescriptions: No Action finasteride 5 mg tablet 5 mg PO BEDTIME 90 Days Qty: 90 1RF magnesium oxide 400 mg (241.3 mg magnesium) tablet 400 mg PO DAILY 90 Days Qty: 90 1RF mirtazapine 15 mg tablet 7.5 mg PO BEDTIME Qty: 45 1RF sennosides [senna] 8.6 mg tablet 8.6 mg PO BEDTIME 90 Days Qty: 90 1RF terazosin 2 mg capsule 8 mg PO BEDTIME 90 Days Qty: 360 1RF amlodipine 5 mg tablet 5 mg PO DAILY 90 Days Qty: 90 1RF pregabalin 75 mg capsule 75 mg PO TID 30 Days Qty: 90 0RF docusate sodium [Colace] 100 mg capsule 200 mg PO BID Qty: 120 0RF diclofenac sodium 1 % Gel 4 g TOPICAL Q6H PRN (Reason: Pain) Rx Instructions: apply to single knee, ankle, foot; for foot includes sole/toes/top of foot baclofen 20 mg tablet 10 mg PO TID duloxetine 30 mg capsule,delayed release(DR/EC) 30 mg PO BID magnesium hydroxide [Milk of Magnesia] 400 mg/5 mL Suspension 30 ml PO DAILY PRN (Reason: Constipation) Rx Instructions: If no BM in 2 days pantoprazole 40 mg tablet,delayed release (DR/EC) 40 mg PO BID@0630,1630 Artificial Tears (PF) 0.1-0.3 % Dropperette 2 drp OPHTHALMIC (EYE) Q2H PRN (Reason: Dry Eye(S)) Rx Instructions: both eyes sulfamethoxazole-trimethoprim [Bactrim DS] 800-160 mg tablet 1 tab PO BID Qty: 4 0RF chlorhexidine gluconate [Periogard] 0.12 % mouthwash 20 ml buccal BEDTIME guaifenesin 100 mg/5 mL liquid 400 mg PO Q6H PRN (Reason: Congestion) oxycodone 5 mg tablet 5 mg PO Q8H PRN (Reason: pain) 30 Days Qty: 90 0RF Rx Instructions: Partial Fill upon patient request. acetaminophen 500 mg tablet 1,000 mg PO TID 30 Days Qty: 180 11RF fluticasone propionate 50 mcg/actuation spray,suspension 2 spray intranasal BEDTIME Referrals: Maycol Jones MD, PhD [Physician, Neuro Spine] Leora Montes MD [Primary Care Provider, Internal Medicine] Interventions: ED Discharge Assessment Last Done: 06/19/25 19:16 Print Language: Danish
--- NOTE | 2025-06-19 13:15 | ECG_ITS ---
Test Reason : dyspnea Blood Pressure : */* mmHG Vent. Rate : 72 BPM Atrial Rate : 72 BPM P-R Int : 162 ms QRS Dur : 94 ms QT Int : 374 ms P-R-T Axes : 56 6 27 degrees QTcB Int : 409 ms Normal sinus rhythm Normal ECG When compared with ECG of 11-Jun-2025 13:47, No significant change was found Referred By: Shawn Lopes Electronically Signed By: ERIKA FOSTER
[2025-06-19 13:27] LABS: MANUAL DIFF FLAG NO
[2025-06-19 13:29] VITALS: BP 103/62; PULSE 70; RESP 14; O2SAT 94
[2025-06-19 13:30] LABS: Hematocrit 33.7 % (42.0-52.0); Hemoglobin 10.0 g/dl (14.0-18.0); Imm Gran Abs Auto 0.02 X10*3/uL (0.00-0.03); Imm Gran Pct Auto 0.2 % (0.0-0.4); Lymphocytes Absolute Auto 1.7 X10*3/uL (1.2-4.9); Mean Corpuscular HGB Conc 29.7 g/dl (31.0-36.0); Mean Corpuscular Hemoglobin 22.1 pg (27.0-33.0); Mean Corpuscular Volume 74.6 fL (80.0-98.0); NRBC Abs Auto 0.000 X10*3/uL (0.0-0.012); NRBC Pct Auto 0.0 /100WBC (0.0-0.2); Platelet Count 175 X10*3/uL (160-400); Red Blood Count 4.52 X10*6/uL (4.60-5.80); White Blood Count 9.4 X10*3/uL (4.8-10.8)
[2025-06-19 13:33] VITALS: TEMP 36.6
[2025-06-19 13:40] LABS: INTERNATIONAL NORM RATIO 1.0 (0.9-1.1); Prothrombin Time 11.2 SEC (10.9-12.4)
[2025-06-19 13:45] LABS: Alanine Aminotransferase 21 U/L (0-40); Albumin Level 3.7 g/dL (3.5-5.0); Alkaline Phosphatase 96 U/L (39-117); Anion Gap 9 (12-20); Aspartate Amino Transferase 34 U/L (5-37); Blood Urea Nitrogen 10 mg/dL (9-16); Calcium 8.1 mg/dL (8.4-10.2); Carbon Dioxide 30 mmol/L (22-29); Chloride 105 mmol/L (96-108); Creatinine Clr Calc Pharmacy 108.0; Estimated Glomerular Filt Rate > 60; Magnesium 2.3 mg/dL (1.6-2.6); Potassium 4.2 mmol/L (3.3-5.1); Sodium 140 mmol/L (135-145); Total Protein 6.1 g/dL (6.5-8.0)
[2025-06-19 13:53] LABS: Troponin-I High Sensitivity 3.2 ng/L (<3.5-35.0)
[2025-06-19] MEDS: iohexoL 350 MG/ML 100 ML INFUS..BTL IV (14:53)
[2025-06-19] MEDS: Lactated Ringers 1,000 ML 999 ML IV (15:50)
[2025-06-19 16:01] LABS: NT Pro B Type Natriuretic Pept 56.9 pg/mL (<300)
[2025-06-19 16:08] VITALS: BP 127/64; PULSE 67; PULSE 68; RESP 14; TEMP 36.4; O2SAT 100; O2SAT 96
[2025-06-19] MEDS: Albuterol/Iprat 2.5/0.5MG 3 ML AMPUL.NEB INHALE (16:08)
[2025-06-19 17:41] LABS: Troponin-I High Sensitivity 3.0 ng/L (<3.5-35.0)
[2025-06-19 18:32] VITALS: BP 151/77; PULSE 88; RESP 13; TEMP 36.7; O2SAT 93
--- NOTE | 2025-06-19 18:36 | PC.NURSE ---
Pt is ready for d/c at this time. [facility] staff member is not with Pt at this time. Call placed to longterm do[employer] dry house operator Tere @ for direction on how to coordinate transportation back the the longterm. Tere advises to call longterm web site project manager Jules @ [phone] Call placed to Jules; no answer and voicemail left with request to call ED back re: Pts need for transportation back to longterm. Awaiting call back.
[2025-06-19 19:16] VITALS: BP 151/77; PULSE 88; RESP 13; TEMP 36.7; O2SAT 93
== END 2025-06-19 21:28 | disposition home or self-care (01) ==
PROVIDERS: Emergency Provider Emergency Medicine; PCP Internal Medicine
DX: J98.11 Atelectasis (principal); R06.00 Dyspnea, unspecified; Z98.1 Arthrodesis status; Z98.890 Other specified postprocedural states
CPT/HCPCS: 36415; 71045; 71275; 80048; 80076; 83605; 83735; 83880; 84484; 85025; 85610; 87040; 93005; 96360; 99285; J7120; Q9967

== ENCOUNTER → 2025-06-19 13:15 | Outpatient (BNV) | payer MEDICARE, MEDICAID, SELFPAY | PROVIDERS: Emergency Provider Emergency Medicine; Visit Provider Radiology Diagnostic Radiology | DX: R91.8 Other nonspecific abnormal finding of lung field (principal) | CPT/HCPCS: 71275 ==

== ENCOUNTER → 2025-06-19 13:15 | Outpatient (BNV) | payer MEDICARE, MEDICAID, SELFPAY | PROVIDERS: Emergency Provider Emergency Medicine; PCP Internal Medicine; Visit Provider Internal Medicine | DX: R06.00 Dyspnea, unspecified (principal) | CPT/HCPCS: 93010 ==

== ENCOUNTER 2025-07-03 16:11 | Outpatient (AMB) | payer MEDICARE, MEDICAID, SELFPAY ==
--- NOTE | 2025-07-03 16:14 | MHC.PC.OV ---
Vital Signs 07/03/25 16:16 Height 5 ft 6 in BMI Reason not done Patient refused/unable BP 130/80 Blood Pressure Location Lt brachial Position Sitting Pulse 59 Pulse Source Pulse Oximeter Temp 97.1 F Temp Source Temporal Artery Scan Pulse Oximetry (%) 96 Oxygen Delivery Method Room Air Intake Visit Reasons: [facility] 06/19 hypoxia Intake Note: Patient is here for hospital discharge follow up. Patient was discharged from [facility] on 06/19/25. Coordinator Of Genetic Services Required: No Therapeutic Mentor: Present Accompanied by: Staff Allergies Penicillins Allergy (Severe, Verified 07/03/25 16:15) Rash tramadol Allergy (Unknown, Verified 07/03/25 16:15) inadequate response Tobacco use date assessed: 07/03/25 Fall risk assessment: No Falls in past year Last assessed Fall Risk: 07/03/25 Dental Screening Dental Screen Date: 04/01/25 HPI HPI Comments History of Present Illness Details 74-year-old male patient presents to clinic today for EDF follow-up. He was admitted at [facility] on 06/19 for evaluation of shortness of breath and low blood pressure. He had undergone an elective cervical spine surgery (C4/C5 laminectomy) on 06/17 to address cervical myelopathy with associated quadriparesis. This was his second procedure following a prior decompression surgery for cervical myelopathy with resulting quadriplegia. During his ED visit, a CT pulmonary angiogram was performed to rule out pulmonary embolism; results were negative for PE and showed right lower lobe atelectasis. Labs and EKG were unremarkable. Today, patient reports bilateral lower-extremity edema. Denies chest pain, palpitations, dizziness, syncope, fever, chills, cough, increased SOB, or new weakness. No recent dietary changes reported. [facility] Medical History History of blood transfusion (~03/27/25) History of GI bleed (~03/27/25) History of airway aspiration (~11/2024) Dysphagia History of stroke (~2021) Hx of varicose veins Depression COVID-19 Numbness HTN (hypertension) Spastic hemiparesis of left dominant side Spastic hemiplegia affecting right dominant side Spastic hemiparesis affecting dominant side Contracture, left hand Bilateral knee contractures Elevated PSA Moderate major depression Insomnia Fibromyalgia GERD (gastroesophageal reflux disease) Hypovitaminosis D Lumbar degenerative disc disease Surgical History Hx of spinal surgery (12/11/24) Hx of varicose vein ligation and stripping History of prostate surgery History of shoulder surgery History of laminectomy Family History Father Diabetes Hypertension Liver cancer Mother Diabetes Hypertension Stroke Other Substance use disorder Social History Household Members: Other Household Members Other:: senior living Housing: House Housing Other:: senior living Are you a primary medicare nurse to a significant other at home: No Do you presently have visiting nurse or other home services: Yes Alcohol intake: former Patient Tobacco Use Status: Former Tobacco user Tobacco use type: Cigarette Cigarettes Per Day: 3 e-Cigarette/Vaping Use: Never Used Second Hand Smoke Exposure: Yes Advance Directives Date on File: 09/06/22 service: No Current occupational status: disabled Cognitive needs: Yes (cane) Hearing needs: No Vision needs: Yes (reading glasses) Questionnaire Thrive Questionnaire Date Thrive assessed: 04/01/25 I am a: Parent/Caregiver What is your living situation today?: I have a steady place to live Within the past 12 months, did the food you bought not last and you didn't have the money to get more?: Never true Within the past 12 months, did you worry whether your food would run out before you got money to buy more?: Never true Do you have trouble paying for medicines?: No Do you have trouble getting transportation to medical appointments?: No Do you have trouble paying your heating and electricity bill?: No Do you have trouble taking care of your child, family member or friend?: No Do you have trouble with day-to-day activities such as bathing, preparing meals, shopping, managing finances, etc.?: Yes Are you currently unemployed and looking for a job?: Yes Are you interested in more education?: No Please select the resources that you would like help with: None Currently or been in a relationship where the following occur: I choose not to answer THRIVE Score: 0 FARHAT-7 AMB Questionnaire FARHAT-7 Date FARHAT - 7 assessed: 04/01/25 Source: Developed by Drs. Marek Sutton, Jaylyn Clark, Brennon Dockery and colleagues, with an educational adams from [place] [employer]. Review of Systems Const All systems reviewed & are unremarkable except as noted in HPI and below Physical exam (Primary Care) Vital Signs: Last Vital Signs Temp 97.1 F 07/03/25 16:16 Pulse 59 07/03/25 16:16 BP 130/80 07/03/25 16:16 Pulse Ox 96 07/03/25 16:16 Oxygen Delivery Method Room Air 07/03/25 16:16 Tobacco/Smoking Status: Tobacco use Status Tobacco use date assessed 07/03/25 07/03/25 16:22 Patient Tobacco Use Status Former Tobacco user 07/03/25 16:22 Tobacco use type Cigarette 07/03/25 16:22 e-Cigarette/Vaping Use Never Used 07/03/25 16:22 Thrive Assessment: Date of Thrive Assessment Date Thrive assessed 04/01/25 07/03/25 16:22 Currently or been in a relationship where the following occur: I choose not to answer Const General: no acute distress Nutritional Appearance: well nourished Orientation/consciousness: patient oriented x3 Limitations: language barrier and wheelchair Neck Neck images:  1. Surgical wound, dry, clean no infection, no tenderness - visible rickie. Resp Effort & Inspection: normal respiratory effort Auscultation: clear to auscultation bilaterally, no crackles, no rales, no rhonchi and no wheezes Cardio Heart sounds: S1 normal heart sound present and S2 normal heart sound present Neuro General: patient oriented x3 Extrem Right lower extremity: lower leg Details: pitting edema Details: 2+; no erythema and no tenderness Left lower extremity: lower leg Details: pitting edema Details: 2+; no erythema and no tenderness Psych Affect: normal affect Coding Level of Care Code Est Pt Level 4 (84777) Diagnoses Atelectasis J98.11 Time Spent (min) 20 Assessment & Plan Assessment & Plan (1) Atelectasis: Comment: Atelectasis - resolved. Code(s): J98.11 - Atelectasis Category: Medical Plan: Reinforced incentive spirometer use for atelectasis prevention. Encouraged leg elevation, compression stockings if not contraindicated. Monitor for red-flag symptoms: worsening SOB, chest pain, unilateral leg swelling, fever, or changes in neurologic status. Instruct patient/caregiver to seek urgent care if these occur. Follow up with neurosurgery as scheduled.
[2025-07-03 16:16] VITALS: BP 130/80; PULSE 59; TEMP 36.2; O2SAT 96
--- OUTSIDE RECORDS SUMMARY | 2025-07-04 00:54 | XMS_ITS | Encounter Summary ---
Author Organization [facility] Address [address] [place] [address] Care Team Providers Care Pre Wave Assembler Name Role Phone Farideh Garcia MD Primary Care Provider [phone] Encounter Details Date Type Department Care Team (Late st Contact Info) Description 12/15/2024 Lab Requisition [facility] - Main Lab 299 [facility] [place] [address] Farideh Garcia MD [address] [place] [address] Frequency of micturition Social History Tobacco Use [...] reflex microscopic (12/14/2024 1:00 PM EDT) Specific [place] Urine 1.020 1.003 - 1.030 LAB URINALYSIS - AUTOMATED METHOD 12/15/2024 12:[address] [facility] pH, Urine 8.0 5.0 - 8.0 pH LAB URINALYSIS - AUTOMATED METHOD 12/15/2024 12:12 PM [facility] Leukocytes, Urine Trace(A) Negative LAB URINALYSIS - AUTOMATED METHOD 12/15/2024 12:12 PM [facility] Nitrite, Urine Negative Negative LAB URINALYSIS - AUTOMATED METHOD 12/15/2024 12:12 PM [facility] Protein, Urine Trace <=Trace mg/dL LAB URINALYSIS - AUTOMATED METHOD 12/15/2024 12:12 PM [facility] Glucose, Urine Negative Negative mg/dL LAB URINALYSIS - AUTOMATED METHOD 12/15/2024 12:12 PM [facility] Ketones, Urine Trace(A) Negative mg/dL LAB URINALYSIS - AUTOMATED METHOD 12/15/2024 12:12 PM [facility] Urobilinogen, Urine 2.0(A) 0.2 - 1.0 mg/dL LAB URINALYSIS - AUTOMATED METHOD 12/15/2024 12:12 PM [facility] Bilirubin, Urine Negative Negative LAB URINALYSIS - AUTOMATED METHOD 12/15/2024 12:12 PM [facility] Blood, Urine Negative Negative LAB URINALYSIS - AUTOMATED METHOD 12/15/2024 12:12 PM [facility] RBC, Urine 4.8(H) 0 - 4 /HPF LAB URINALYSIS - AUTOMATED METHOD 12/15/2024 12:12 PM [facility] WBC, Urine 0.9 0 - 4 /HPF LAB URINALYSIS - AUTOMATED METHOD 12/15/2024 12:12 PM [facility] Squamous Epithelial, Urine 15 0 - 60 /LPF LAB URINALYSIS - AUTOMATED METHOD 12/15/2024 12:12 PM [facility] Bacteria, Urine Negative Negative /HPF [...] Resul t [facility] [address] [place] [address], * (ABNORMAL) Culture urine (12/14/2024 1:00 PM [...] MICROBIOLOGY - GENERAL ORDER ITZEL Final Result [facility] [address] [place] [address], documented in this encounter Visit Diagnoses Diagnosis Frequency of micturition Urinary frequency documented in this encounter Care Teams Pre Wave Assembler Relationship Specialty Start Date End Date Farideh Garcia MD [address] [place] [address] [address] [place] [address] PCP - General Geriatric Medicine 09/16/24 documented as of this encounter
--- OUTSIDE RECORDS SUMMARY | 2025-07-04 00:54 | XMS_ITS | Encounter Summary ---
Author Organization [facility] Address [address] [place] [address] Care Team Providers Care At[employer]T Retailer Sales Consultant Name Role Phone Farideh Garcia MD Primary Care Provider Encounter Details Date Type Department Care Team (Late st Contact Info) Description 12/11/2024 Lab Requisition [facility] - Main Lab [address] [facility] [place] [address] Farideh Garcia MD [address] [place] [address] Dysuria Social History Tobacco Use Types Packs/Day [...] MICROBIOLOGY - GENERAL ORDER ITZEL Final Result [facility] [address] [place] [address], [place] [phone] * (ABNORMAL) Urinalysis with reflex microscopic and culture (12/10/2024 3:10 PM EDT) Specific [place] Urine 1.020 1.003 - 1.030 LAB URINALYSIS [...] - AUTOMATED METHOD 12/11/2024 9:03 AM EDT [facility] Blood, Urine Negative Negative [...] [facility] [address] [place] [address], * Kumari urine culture tube (12/10/2024 3:10 PM EDT) Extra Tube Hold for add-ons. 12/11/2024 10:01 AM EDT [facility] Comment:Auto resulted. Urine Urine specimen obtained by clean catch procedure / Unknown 12/10/2024 3:10 PM EDT 12/11/2024 8:32 AM EDT us Farideh Garcia MD LAB URINE ORDERABLES Final Resul t [facility] ([facility]) [facility] [address] [place] [address], documented in this encounter Visit Diagnoses Diagnosis Dysuria documented in this encounter Care Teams At[employer] Retailer Sales Consultant Relationship Specialty Start Date End Date Farideh Garcia MD [address] [place] [address] [address] [place] [address] PCP - General Geriatric Medicine 09/16/24 documented as of this encounter
--- OUTSIDE RECORDS SUMMARY | 2025-07-04 00:54 | XMS_ITS | Encounter Summary ---
Author Organization [facility] Address [address] [place] [address] Care Team Providers Care Technical Rep Name Role Phone Farideh Garcia MD Primary Care Provider [phone] Encounter Details Date Type Department Care Team (Late st Contact Info) Description 12/15/2024 Lab Requisition [facility] - Main Lab 299 [facility] [place] [address] Farideh Garcia MD [address] [place] [address] Benign prostatic hyperplasia with lower urinary tract [...] MD LAB BLOOD ORDERABLES Final Resul t [facility] [address] [place] [address], documented in this encounter Visit Diagnoses Diagnosis Benign prostatic hyperplasia with lower urinary tract symptoms documented in this encounter Care Teams Technical Rep Relationship Specialty Start Date End Date Farideh Garcia MD [address] [place] [address] [address] [place] [address] PCP - General Geriatric Medicine 09/16/24 documented as of this encounter
--- OUTSIDE RECORDS SUMMARY | 2025-07-04 00:55 | XMS_ITS | Clinical Summary ---
Author Organization [address] [facility] Address [address] [place] [address] Phone Care Team Providers Care Senior Bi Developer Name Role Phone Farideh Garcia MD Primary Care Provider [phone] Social History Tobacco Use Types Packs/Day Years [...] Depression Screening 08/20/2024 COVID-19 Vaccine (1 - 2024-2 6 season) 2025 Influenza Vaccine (#1) 2025 HIB [...] Insurance MEDICARE MEDICAID - [place] Care Teams Senior Bi Developer Relationship Specialty Start Date End Date Farideh Garcia MD [address] [place] [address] [address] [place] [address] PCP - General Geriatric Medicine 09/16/24
--- OUTSIDE RECORDS SUMMARY | 2025-07-04 00:55 | XMS_ITS | Encounter Summary ---
Author Organization [facility] Address [address] [place] [address] Care Team Providers Care It Business Systems Analyst Name Role Phone Fardieh Garcia MD Primary Care Provider [phone] Encounter Details Date Type Department Care Team (Late st Contact Info) Description 02/06/2025 Lab Requisition [facility] - Main Lab [address] [facility] [place] [address] Farideh Garcia MD [address] [place] [address] Weakness Social History Tobacco Use Types Packs/Day [...] Resul t [facility] [address] [place] [address], * (ABNORMAL) Complete blood count (02/06/2025 5:45 [...] MD LAB BLOOD ORDERABLES Final Resul t [email or web address] [address] [place] [address], documented in this encounter Visit Diagnoses Diagnosis Weakness Other malaise and fatigue documented in this encounter Care Teams It Business Systems Analyst Relationship Specialty Start Date End Date Farideh Garcia MD [address] [place] [address] [address] [place] [address] PCP - General Geriatric Medicine 09/16/24 documented as of this encounter
--- OUTSIDE RECORDS SUMMARY | 2025-07-04 00:56 | XMS_ITS | Encounter Summary ---
Author Organization [facility] Address [address] [place] [address] Care Team Providers Care Battery Parts Assembler Name Role Phone Farideh Garcia MD Primary Care Provider [phone] Encounter Details Date Type Department Care Team (Late st Contact Info) Description 09/16/2024 Lab Requisition [facility] - Main Lab [address] [facility] [place] [address] Farideh Garcia MD [address] [place] [address] Shortness of breath; Acute cough Social History [...] Procedure Name Priority Date/Time Associated Diagnosis Comments [id number], RSV, FLU A AND B QUALITATIVE RT-PCR, LOCAL REFERENCE LAB Routine 09/15/2024 12:00 PM EST Shortness of breath Acute cough documented in this encounter Results * [id number], RSV, Influenza A and B qualitative RT-PCR (09/15/2024 12:00 PM EST) SARS COV-2 Not Detected Not Detected LAB MOLECULAR DIAGNOSTICS METHOD 09/16/2024 12:35 PM EST [facility] Comment: Disclaimer: The manner in which this information is used to guide patient care is the responsibility of the healthcare provider. Testing was performed using the [employer] m SARS-CoV-2 test. This test has been [...] for Healthcare Providers can be found at: https://www.fda.gov/media/326217/download Fact sheet for Patients can be found at: https://www.fda.gov/media/309902/download Influenza A PCR Not Detected Not Detected LAB MOLECULAR DIAGNOSTICS METHOD 09/16/2024 12:35 PM EST [facility] Influenza B PCR Not Detected Not Detected LAB MOLECULAR DIAGNOSTICS METHOD 09/16/2024 12:35 PM [facility] RSV PCR Not Detected Not Detected LAB MOLECULAR DIAGNOSTICS METHOD 09/16/2024 12:35 PM [facility] Swab Nasopharyngeal structure / Unknown 09/15/2024 12:00 PM EST 09/16/2024 9:43 AM EST Farideh Garcia MD LAB MICROBIOLOGY - GENERAL ORDER ITZEL Final Result [facility] [address] [place] [address], documented in this encounter Visit Diagnoses Diagnosis Shortness of breath Acute cough documented in this encounter Additional Health Concerns Infection Onset Date Last Indicated Resolved Time Respiratory Rule-Out 09/16/2024 09/15/2024 025 12:35 PM EST documented as of this encounter Care Teams Battery Parts Assembler Relationship Specialty Start Date End Date Farideh Garcia MD [address] [facility] [address] [place] [address] PCP - General Geriatric Medicine 09/16/24 documented as of this encounter
--- OUTSIDE RECORDS SUMMARY | 2025-07-04 00:57 | XMS_ITS | Encounter Summary ---
Author Organization [facility] Address [address] [place] [address] Care Team Providers Care Acting Teacher Name Role Phone Farideh Garcia MD Primary Care Provider [phone] Encounter Details Date Type Department Care Team (Late st Contact Info) Description 10/21/2024 Lab Requisition [facility] - Main Lab [address] [facility] [place] [address] Farideh Garcia MD [address] [place] [address] Vitamin D deficiency, unspecified Social History Tobacco [...] LAB CHEMISTRY METHOD 10/22/2024 12:24 PM EST [facility] Blood Venous blood specimen / Unknown Venipuncture / Unknown 10/22/2024 5:45 AM EST 10/22/2024 11:10 AM EST us Farideh Garcia MD LAB BLOOD ORDERABLES Final Resul t [facility] LAB [address] [place] [address], documented in this encounter Visit Diagnoses Diagnosis Vitamin D deficiency, unspecified documented in this encounter Care Teams Acting Teacher Relationship Specialty Start Date End Date Farideh Garcia MD [address] [place] [address] [address] [place] [address] PCP - General Geriatric Medicine 09/16/24 documented as of this encounter
--- OUTSIDE RECORDS SUMMARY | 2025-07-04 00:57 | XMS_ITS | Encounter Summary ---
Author Organization [facility] Address [address] [place] [address] Care Team Providers Care Insurance Territory Manager Name Role Phone Farideh Garcia MD Primary Care Provider [phone] Encounter Details Date Type Department Care Team (Late st Contact Info) Description 08/21/2024 Lab Requisition [facility] - Main Lab [address] [place] [address] Kris Osorio MD [address] [place] [address] Essential (primary) hypertension Social History Tobacco Use [...] LAB CHEMISTRY METHOD 08/22/2024 10:42 AM EST [facility] Potassium 3.5 3.5 - 5.5 mmol/L LAB CHEMISTRY METHOD 08/22/2024 10:42 AM EST [facility] Chloride 105 96 - 110 mmol/L LAB CHEMISTRY METHOD 08/22/2024 10:42 AM EST [facility] CO2 31 21 - [...] Res ult [facility] [address] [place] [address], documented in this encounter Visit Diagnoses Diagnosis Essential (primary) hypertension Unspecified essential hypertension documented in this encounter Additional Health Concerns Infection Onset Date Last Indicated Resolved Time Respiratory Rule-Out 09/16/2024 09/15/2024 025 12:35 PM EST documented as of this encounter Care Teams Insurance Territory Manager Relationship Specialty Start Date End Date Farideh Garcia MD [address] [facility] [address] [place] [address] PCP - General Geriatric Medicine 09/16/24 documented as of this encounter
--- OUTSIDE RECORDS SUMMARY | 2025-07-04 00:58 | XMS_ITS | Encounter Summary ---
Author Organization [facility] Address [address] [place] [address] Care Team Providers Care Call Center Coordinator Name Role Phone Farideh Garcia MD Primary Care Provider [phone] Encounter Details Date Type Department Care Team (Late st Contact Info) Description 09/23/2024 Lab Requisition [facility] - Main Lab [address] [facility] [place] [address] Kris Osorio MD [address] [place] [id number] Benign prostatic hyperplasia without lower urinary tract [...] LAB CHEMISTRY METHOD 09/24/2024 11:[address] [facility] Blood Venous blood specimen / Unknown Venipuncture / Unknown 09/24/2024 6:55 AM EST 09/24/2024 10:15 AM EST Kris Osorio MD LAB BLOOD ORDERABLES Final Res ult Performing Organization Address [facility]/ZIP Co de Phone Number [facility] [address] [place] [address], * Magnesium (09/24/2024 6:55 AM EST) Pathologist [facility] Magnesium 2.3 1.9 - 2.6 mg/dL LAB CHEMISTRY METHOD 09/24/2024 11:[address] [facility] Blood Venous blood specimen / Unknown Venipuncture / Unknown 09/24/2024 6:55 AM EST 09/24/2024 10:15 AM EST Kris Osorio MD LAB BLOOD ORDERABLES Final Res ult [facility] [address] [place] [address], * (ABNORMAL) Folate (09/24/2024 6:55 AM EST) Pathologist [facility] Folate >20.0(H) 2.8 - 17.0 ng/ml LAB CHEMISTRY METHOD 09/24/2024 11:[address] [facility] Blood Venous blood specimen / Unknown Venipuncture / Unknown 09/24/2024 6:55 AM EST 09/24/2024 10:15 AM EST Kris Osorio MD LAB BLOOD ORDERABLES Final Res ult [facility] [address] [place] [address], [place] [phone] * (ABNORMAL) Comprehensive metabolic panel (09/24/2024 6:55 AM EST) Sodium 139 133 - 145 mmol/L LAB CHEMISTRY METHOD 09/24/2024 11:15 AM [facility] Potassium 3.9 3.5 - 5.5 mmol/L LAB CHEMISTRY METHOD 09/24/2024 11:15 AM [facility] Chloride 103 96 - 110 mmol/L LAB CHEMISTRY METHOD 09/24/2024 11:15 AM [facility] CO2 33(H) 21 - 32 mmol/L LAB CHEMISTRY METHOD 09/24/2024 11:15 AM [facility] Anion Gap 3 3 - 11 LAB CHEMISTRY METHOD 09/24/2024 11:15 AM [facility] Glucose 104(H) 70 - 100 mg/dL LAB CHEMISTRY METHOD 09/24/2024 11:15 AM [facility] BUN 17 5 - 25 mg/dL LAB CHEMISTRY METHOD 09/24/2024 11:15 AM [facility] Creatinine 0.57(L) 0.70 - 1.30 mg/dL LAB CHEMISTRY METHOD 09/24/2024 11:15 AM [facility] eGFR 102 >=60 mL/min/1. 73m2 LAB CHEMISTRY METHOD 09/24/2024 11:15 AM [facility] Comment:Calculation based on the Chronic Kidney Disease Epidemiology Collaboration (CKD-EPI) equation refit without adjustment for race. BUN/Creatinine Ratio 29.8 LAB CHEMISTRY METHOD 09/24/2024 11:15 AM [facility] Calcium 8.7 8.5 - 10.5 mg/dL LAB CHEMISTRY METHOD 09/24/2024 11:15 AM [facility] AST (SGOT) 21 10 - 42 unit/L LAB CHEMISTRY METHOD 09/24/2024 11:15 AM [facility] ALT (SGPT) 38 10 - 60 unit/L LAB CHEMISTRY METHOD 09/24/2024 11:15 AM [facility] Alkaline Phosphatase 102 42 - 121 unit/L LAB CHEMISTRY METHOD 09/24/2024 11:15 AM [facility] Total Protein 6.0 6.0 - 8.0 g/dL LAB CHEMISTRY METHOD 09/24/2024 11:15 AM [facility] Albumin 3.3 3.2 - 5.0 g/dL LAB CHEMISTRY METHOD 09/24/2024 11:15 AM [facility] Total Bilirubin 0.2 0.0 - 1.4 mg/dL LAB CHEMISTRY METHOD 09/24/2024 11:15 AM [facility] Blood Venous blood specimen / Unknown Venipuncture / Unknown 09/24/2024 6:55 AM EST 09/24/2024 10:15 AM EST us Kris Osorio MD LAB BLOOD ORDERABLES Final Res ult [facility] [address] [place] [address], * (ABNORMAL) Complete blood count (09/24/2024 6:55 AM EST) WBC 8.9 4.8 - 10.8 K/mcL LAB HEMETOLOGY METHOD 09/24/2024 10:37 AM [facility] RBC 4.60 4.50 - 5.50 M/mcL LAB HEMETOLOGY METHOD 09/24/2024 10:37 AM [facility] Hemoglobin 12.3(L) 13.5 - 17.5 g/dL LAB HEMETOLOGY METHOD 09/24/2024 10:37 AM [facility] Hematocrit 38.7(L) 42.0 - 54.0 % LAB HEMETOLOGY METHOD 09/24/2024 10:37 AM [facility] MCV 84.7 79.0 - 98.0 FL LAB HEMETOLOGY METHOD 09/24/2024 10:37 AM [facility] MCH 26.9(L) 27.0 - 32.0 pcg LAB HEMETOLOGY METHOD 09/24/2024 10:37 AM [facility] MCHC 31.8(L) 32.0 - 37.0 g/dL LAB HEMETOLOGY METHOD 09/24/2024 10:37 AM [facility] RDW 13.7 11.0 - 15.0 % LAB HEMETOLOGY METHOD 09/24/2024 10:37 AM [facility] Platelets 194 130 - 400 K/[facility] LAB HEMETOLOGY METHOD 09/24/2024 10:37 AM [facility] MPV 10.3 7.0 - 11.0 FL LAB HEMETOLOGY METHOD 09/24/2024 10:37 AM [facility] NRBC 0.2 <1.0 % LAB HEMETOLOGY METHOD 09/24/2024 10:37 AM [facility] NRBC Absolute 0.02 <0.10 K/[facility] LAB HEMETOLOGY METHOD 09/24/2024 10:37 AM [facility] Blood Venous blood specimen / Unknown Venipuncture / Unknown 09/24/2024 6:55 AM EST 09/24/2024 10:15 AM EST Kris Osorio MD LAB BLOOD ORDERABLES Final Res ult [facility] [address] [place] [address], documented in this encounter Visit Diagnoses Diagnosis Benign prostatic hyperplasia without lower urinary tract symptoms Vitamin D deficiency, unspecified Essential (primary) hypertension Unspecified essential hypertension documented in this encounter Care Teams Call Center Coordinator Relationship Specialty Start Date End Date Farideh Garcia MD [address] [place] [address] [address] [place] [address] PCP - General Geriatric Medicine 09/16/24 documented as of this encounter
--- OUTSIDE RECORDS SUMMARY | 2025-08-19 19:00 | XMS_ITS | Clinical Summary ---
Author Organization Unknown Care Team Providers Care World Language Teacher Name Role Phone LOKI MILES MD, MICHA Unavailable Unavailable SAUL URIAS, DILIP Unavailable Unavailable Payers Payer Name Policy Type Policy Number Effective Date Expira tion Date MEDICARE - NGS [place] - PD [id number] Problems Condition Name Condition Details Condition Category [...] Observation Time Observation Value Commen ts Temperature 2025-06-29 11:34:00.000 97.7 [degF] Temperature 2025-06-22 14:22:00.000 98.1 [degF] Temperature 2025-06-19 12:12:00.000 98.6 [degF] BMI (%) 2025-06-22 14:22:00.000 29 kg/m2 BMI (%) 2025-06-19 12:12:00.000 38 kg/m2 Height 2025-06-22 14:22:00.000 66 [in_us] Height 2025-06-19 12:12:00.000 63 [in_us] Pulse 2025-06-29 11:34:00.000 73 /min Pulse 2025-06-22 14:22:00.000 78 /min Pulse 2025-06-19 12:12:00.000 75 /min O2 Saturation (%) 2025-06-29 11:34:00.000 92 % O2 Saturation (%) 2025-06-19 12:12:00.000 86 % Respirations 2025-06-29 11:34:00.000 20 /min Respirations 2025-06-22 14:22:00.000 18 /min Respirations 2025-06-19 12:12:00.000 22 /min Weight (lbs) 2025-06-22 14:22:00.000 180 [lb_av] Weight (lbs) 2025-06-19 12:12:00.000 215 [lb_av] Systolic Blood Pressure 2025-06-29 11:34:00.000 154 mm [Hg] Systolic Blood Pressure 2025-06-22 14:22:00.000 124 mm [Hg] Systolic Blood Pressure 2025-06-19 12:12:00.000 130 mm [Hg] Diastolic Blood Pressure 2025-06-29 11:34:00.000 [...] MAINTAIN SITUATIONAL AWARENESS AND WILL NOTIFY CLINICAL MEDICAL RECORD TECHNICIAN AND PHYSICIAN/PROVIDER WITH ANY CHANGE IN CONDITION. [code = SKILLED NURSE TO PERFORM ENVIRONMENTAL SAFETY RISK ASSESSMENT AND FALL RISK ASSESSMENT AND PROVIDE INSTRUCTION TO IMPLEMENT ENVIRONMENTAL SAFETY AND FALL PREVENTION STRATEGIES THROUGHOUT THE CERTIFICATION PERIOD. SKILLED NURSE WILL MAINTAIN SITUATIONAL AWARENESS AND WILL NOTIFY CLINICAL MEDICAL RECORD TECHNICIAN AND PHYSICIAN/PROVIDER WITH ANY CHANGE IN CONDITION.] [...] CARE WILL BE ESTABLISHED THAT MEETS PATIENT'S LONGTERM NEEDS AND INCLUDES PATIENT GOAL FOR HOME [...] DISEASE WHILE MAINTAINING SAFETY THROUGHOUT THE EPISODE. Encounters Start Date/Time End Date/Time Encounter Type Admission Type Attending Clinicians Care Facility Care Department Encounter ID Discharge Date Discharge Status Discharge Condition Discharge Reason Percent Goals Met 2025-06-22 00:00:00 2025-08-20 00:00:00 Outpatient NEW ADMISSION DILIP HUGHES [facility] [id number] 14.81
--- OUTSIDE RECORDS SUMMARY | 2025-08-19 19:00 | XMS_ITS | Clinical Summary ---
Author Organization Unknown Care Team Providers Care Industrial Engineering Technician Name Role Phone LOKI MILES MD, MICHA Unavailable Unavailable SAUL URIAS, DILIP Unavailable Unavailable Payers Payer Name Policy Type Policy Number Effective Date Expira tion Date MEDICARE - NGS [place] - [place] [id number] Problems Condition Name Condition Details Condition Category [...] MAINTAIN SITUATIONAL AWARENESS AND WILL NOTIFY CLINICAL SLEEP MEDICINE PHYSICIAN AND PHYSICIAN/PROVIDER WITH ANY CHANGE IN CONDITION. [code = SKILLED NURSE TO PERFORM ENVIRONMENTAL SAFETY RISK ASSESSMENT AND FALL RISK ASSESSMENT AND PROVIDE INSTRUCTION TO IMPLEMENT ENVIRONMENTAL SAFETY AND FALL PREVENTION STRATEGIES THROUGHOUT THE CERTIFICATION PERIOD. SKILLED NURSE WILL MAINTAIN SITUATIONAL AWARENESS AND WILL NOTIFY CLINICAL SLEEP MEDICINE PHYSICIAN AND PHYSICIAN/PROVIDER WITH ANY CHANGE IN CONDITION.] [...] 2025-08-20 00:00:00 Outpatient NEW ADMISSION DILIP HUGHES [facility] [id number] 14.81
--- OUTSIDE RECORDS SUMMARY | 2025-08-19 19:00 | XMS_ITS | Clinical Summary ---
Author Organization Unknown Care Team Providers Care Hazardous Materials Driver Name Role Phone LOKI MILES MD, MICHA Unavailable Unavailable SAUL URIAS, DILIP Unavailable Unavailable Payers Payer Name Policy Type Policy Number Effective Date Expira tion Date MEDICARE - NGS [place] - PD [id number] Problems Condition Name Condition Details Condition Category [...] MAINTAIN SITUATIONAL AWARENESS AND WILL NOTIFY CLINICAL FREIGHT SALES BROKER AND PHYSICIAN/PROVIDER WITH ANY CHANGE IN CONDITION. [code = SKILLED NURSE TO PERFORM ENVIRONMENTAL SAFETY RISK ASSESSMENT AND FALL RISK ASSESSMENT AND PROVIDE INSTRUCTION TO IMPLEMENT ENVIRONMENTAL SAFETY AND FALL PREVENTION STRATEGIES THROUGHOUT THE CERTIFICATION PERIOD. SKILLED NURSE WILL MAINTAIN SITUATIONAL AWARENESS AND WILL NOTIFY CLINICAL FREIGHT SALES BROKER AND PHYSICIAN/PROVIDER WITH ANY CHANGE IN CONDITION.] [...] CARE WILL BE ESTABLISHED THAT MEETS PATIENT'S ASSISTED NEEDS AND INCLUDES PATIENT GOAL FOR HOME [...] 2025-08-20 00:00:00 Outpatient NEW ADMISSION DILIP HUGHES [facility] [id number] 14.81
--- OUTSIDE RECORDS SUMMARY | 2025-08-19 19:00 | XMS_ITS | Clinical Summary ---
Author Organization Unknown Care Team Providers Care Cat Dog Or Other Pet Groomer Name Role Phone LOKI MILES MD, MICHA Unavailable Unavailable SAUL URIAS, DILIP Unavailable Unavailable Payers Payer Name Policy Type Policy Number Effective Date Expira tion Date MEDICARE - NGS [place] - [place] [id number] Problems Condition Name Condition Details Condition Category [...] MAINTAIN SITUATIONAL AWARENESS AND WILL NOTIFY CLINICAL BUSINESS INSTRUCTOR AND PHYSICIAN/PROVIDER WITH ANY CHANGE IN CONDITION. [code = SKILLED NURSE TO PERFORM ENVIRONMENTAL SAFETY RISK ASSESSMENT AND FALL RISK ASSESSMENT AND PROVIDE INSTRUCTION TO IMPLEMENT ENVIRONMENTAL SAFETY AND FALL PREVENTION STRATEGIES THROUGHOUT THE CERTIFICATION PERIOD. SKILLED NURSE WILL MAINTAIN SITUATIONAL AWARENESS AND WILL NOTIFY CLINICAL BUSINESS INSTRUCTOR AND PHYSICIAN/PROVIDER WITH ANY CHANGE IN CONDITION.] [...] 2025-08-20 00:00:00 Outpatient NEW ADMISSION DILIP HUGHES [facility] [id number] 14.81
--- OUTSIDE RECORDS SUMMARY | 2025-08-19 19:00 | XMS_ITS | Clinical Summary ---
Author Organization Unknown Care Team Providers Care Spent Grain Dryer Name Role Phone LOKI MILES MD, MICHA Unavailable Unavailable SAUL URIAS, DILIP Unavailable Unavailable Payers Payer Name Policy Type Policy Number Effective Date Expira tion Date MEDICARE - NGS [place] - [place] [id number] Problems Condition Name Condition Details Condition Category [...] MAINTAIN SITUATIONAL AWARENESS AND WILL NOTIFY CLINICAL INTERCELL CONNECTOR PLACER AND PHYSICIAN/PROVIDER WITH ANY CHANGE IN CONDITION. [code = SKILLED NURSE TO PERFORM ENVIRONMENTAL SAFETY RISK ASSESSMENT AND FALL RISK ASSESSMENT AND PROVIDE INSTRUCTION TO IMPLEMENT ENVIRONMENTAL SAFETY AND FALL PREVENTION STRATEGIES THROUGHOUT THE CERTIFICATION PERIOD. SKILLED NURSE WILL MAINTAIN SITUATIONAL AWARENESS AND WILL NOTIFY CLINICAL INTERCELL CONNECTOR PLACER AND PHYSICIAN/PROVIDER WITH ANY CHANGE IN CONDITION.] [...] DILIP HUGHES [facility] [id number] 14.81
--- OUTSIDE RECORDS SUMMARY | 2025-08-19 19:00 | XMS_ITS | Clinical Summary ---
Author Organization Unknown Care Team Providers Care Clinical Secretary Name Role Phone LOKI MILES MD, MICHA Unavailable Unavailable SAUL URIAS, DILIP Unavailable Unavailable Payers Payer Name Policy Type Policy Number Effective Date Expira tion Date MEDICARE - NGS [place] - [place] [id number] Problems Condition Name Condition Details Condition Category [...] MAINTAIN SITUATIONAL AWARENESS AND WILL NOTIFY CLINICAL SENIOR PL SQL DEVELOPER AND PHYSICIAN/PROVIDER WITH ANY CHANGE IN CONDITION. [code = SKILLED NURSE TO PERFORM ENVIRONMENTAL SAFETY RISK ASSESSMENT AND FALL RISK ASSESSMENT AND PROVIDE INSTRUCTION TO IMPLEMENT ENVIRONMENTAL SAFETY AND FALL PREVENTION STRATEGIES THROUGHOUT THE CERTIFICATION PERIOD. SKILLED NURSE WILL MAINTAIN SITUATIONAL AWARENESS AND WILL NOTIFY CLINICAL SENIOR PL SQL DEVELOPER AND PHYSICIAN/PROVIDER WITH ANY CHANGE IN [...] Outpatient NEW ADMISSION DILIP HUGHES [facility] [id number] 14.81
--- OUTSIDE RECORDS SUMMARY | 2025-08-19 19:00 | XMS_ITS | Clinical Summary ---
Author Organization Unknown Care Team Providers Care Smoke Inspector Name Role Phone LOKI MILES MD, MICHA Unavailable Unavailable SAUL URIAS, DILIP Unavailable Unavailable Payers Payer Name Policy Type Policy Number Effective Date Expira tion Date MEDICARE - NGS [place] - [place] [id number] Problems Condition Name Condition Details Condition Category [...] MAINTAIN SITUATIONAL AWARENESS AND WILL NOTIFY CLINICAL MARKETING EFFECTIVENESS MANAGER AND PHYSICIAN/PROVIDER WITH ANY CHANGE IN CONDITION. [code = SKILLED NURSE TO PERFORM ENVIRONMENTAL SAFETY RISK ASSESSMENT AND FALL RISK ASSESSMENT AND PROVIDE INSTRUCTION TO IMPLEMENT ENVIRONMENTAL SAFETY AND FALL PREVENTION STRATEGIES THROUGHOUT THE CERTIFICATION PERIOD. SKILLED NURSE WILL MAINTAIN SITUATIONAL AWARENESS AND WILL NOTIFY CLINICAL MARKETING EFFECTIVENESS MANAGER AND PHYSICIAN/PROVIDER WITH ANY CHANGE IN CONDITION.] [...] 2025-08-20 00:00:00 Outpatient NEW ADMISSION DILIP HUGHES [facility] [id number] 14.81
--- OUTSIDE RECORDS SUMMARY | 2025-08-19 19:00 | XMS_ITS | Clinical Summary ---
Author Organization Unknown Care Team Providers Care Recruiting And Selection Consultant Name Role Phone LOKI MILES MD, MICHA Unavailable Unavailable SAUL URIAS, DILIP Unavailable Unavailable Payers Payer Name Policy Type Policy Number Effective Date Expira tion Date MEDICARE - NGS [place] - PD [id number] Problems Condition Name Condition Details Condition Category [...] MAINTAIN SITUATIONAL AWARENESS AND WILL NOTIFY CLINICAL RABBLER AND PHYSICIAN/PROVIDER WITH ANY CHANGE IN CONDITION. [code = SKILLED NURSE TO PERFORM ENVIRONMENTAL SAFETY RISK ASSESSMENT AND FALL RISK ASSESSMENT AND PROVIDE INSTRUCTION TO IMPLEMENT ENVIRONMENTAL SAFETY AND FALL PREVENTION STRATEGIES THROUGHOUT THE CERTIFICATION PERIOD. SKILLED NURSE WILL MAINTAIN SITUATIONAL AWARENESS AND WILL NOTIFY CLINICAL RABBLER AND PHYSICIAN/PROVIDER WITH ANY CHANGE IN CONDITION.] [...] CARE WILL BE ESTABLISHED THAT MEETS PATIENT'S [place] NEEDS AND INCLUDES PATIENT GOAL FOR HOME [...] 2025-08-20 00:00:00 Outpatient NEW ADMISSION DILIP HUGHES [facility] [id number] 14.81
--- OUTSIDE RECORDS SUMMARY | 2025-08-19 19:00 | XMS_ITS | Clinical Summary ---
Author Organization Unknown Care Team Providers Care Sensitized Paper Tester Name Role Phone LOKI MILES MD, MICHA Unavailable Unavailable SAUL URIAS, DILIP Unavailable Unavailable Payers Payer Name Policy Type Policy Number Effective Date Expira tion Date MEDICARE - NGS [place] - PD [id number] Problems Condition Name Condition Details Condition Category [...] MAINTAIN SITUATIONAL AWARENESS AND WILL NOTIFY CLINICAL TAG STRINGER AND PHYSICIAN/PROVIDER WITH ANY CHANGE IN CONDITION. [code = SKILLED NURSE TO PERFORM ENVIRONMENTAL SAFETY RISK ASSESSMENT AND FALL RISK ASSESSMENT AND PROVIDE INSTRUCTION TO IMPLEMENT ENVIRONMENTAL SAFETY AND FALL PREVENTION STRATEGIES THROUGHOUT THE CERTIFICATION PERIOD. SKILLED NURSE WILL MAINTAIN SITUATIONAL AWARENESS AND WILL NOTIFY CLINICAL TAG STRINGER AND PHYSICIAN/PROVIDER WITH ANY CHANGE IN CONDITION.] [...] 2025-08-20 00:00:00 Outpatient NEW ADMISSION DILIP HUGHES [facility] [id number] 14.81
--- OUTSIDE RECORDS SUMMARY | 2025-08-19 19:00 | XMS_ITS | Clinical Summary ---
Author Organization Unknown Care Team Providers Care Wood Form Builder Name Role Phone LOKI MILES MD, MICHA Unavailable Unavailable SAUL URIAS, DILIP Unavailable Unavailable Payers Payer Name Policy Type Policy Number Effective Date Expira tion Date MEDICARE - NGS [place] - PD [id number] Problems Condition Name Condition Details Condition Category [...] MAINTAIN SITUATIONAL AWARENESS AND WILL NOTIFY CLINICAL ROTOR WINDER AND PHYSICIAN/PROVIDER WITH ANY CHANGE IN CONDITION. [code = SKILLED NURSE TO PERFORM ENVIRONMENTAL SAFETY RISK ASSESSMENT AND FALL RISK ASSESSMENT AND PROVIDE INSTRUCTION TO IMPLEMENT ENVIRONMENTAL SAFETY AND FALL PREVENTION STRATEGIES THROUGHOUT THE CERTIFICATION PERIOD. SKILLED NURSE WILL MAINTAIN SITUATIONAL AWARENESS AND WILL NOTIFY CLINICAL ROTOR WINDER AND PHYSICIAN/PROVIDER WITH ANY CHANGE IN CONDITION.] [...] Outpatient NEW ADMISSION DILIP HUGHES [facility] [id number] 14.81
--- OUTSIDE RECORDS SUMMARY | 2025-08-19 19:00 | XMS_ITS | Clinical Summary ---
Author Organization Unknown Care Team Providers Care Procedures Rn Name Role Phone LOKI MILES MD, MICHA Unavailable Unavailable SAUL URIAS, DILIP Unavailable Unavailable Payers Payer Name Policy Type Policy Number Effective Date Expira tion Date MEDICARE - NGS [place] - PD [id number] Problems Condition Name Condition Details Condition Category [...] SITUATIONAL AWARENESS AND WILL NOTIFY CLINICAL MEDICAL ASSISTING PROGRAM DIRECTOR AND PHYSICIAN/PROVIDER WITH ANY CHANGE IN CONDITION. [code = SKILLED NURSE TO PERFORM ENVIRONMENTAL SAFETY RISK ASSESSMENT AND FALL RISK ASSESSMENT AND PROVIDE INSTRUCTION TO IMPLEMENT ENVIRONMENTAL SAFETY AND FALL PREVENTION STRATEGIES THROUGHOUT THE CERTIFICATION PERIOD. SKILLED NURSE WILL MAINTAIN SITUATIONAL AWARENESS AND WILL NOTIFY CLINICAL MEDICAL ASSISTING PROGRAM DIRECTOR AND PHYSICIAN/PROVIDER WITH ANY CHANGE IN CONDITION.] [...] 2025-08-20 00:00:00 Outpatient NEW ADMISSION DILIP HUGHES [facility] [id number] 14.81
--- OUTSIDE RECORDS SUMMARY | 2025-08-19 19:00 | XMS_ITS | Clinical Summary ---
Author Organization Unknown Care Team Providers Care Valuation Consultant Name Role Phone LOKI MILES MD, MICHA Unavailable Unavailable SAUL URIAS, DILIP Unavailable Unavailable Payers Payer Name Policy Type Policy Number Effective Date Expira tion Date MEDICARE - NGS [place] - PD [id number] Problems Condition Name Condition Details Condition Category [...] MAINTAIN SITUATIONAL AWARENESS AND WILL NOTIFY CLINICAL COMMERCIAL PHOTOGRAPHER AND PHYSICIAN/PROVIDER WITH ANY CHANGE IN CONDITION. [code = SKILLED NURSE TO PERFORM ENVIRONMENTAL SAFETY RISK ASSESSMENT AND FALL RISK ASSESSMENT AND PROVIDE INSTRUCTION TO IMPLEMENT ENVIRONMENTAL SAFETY AND FALL PREVENTION STRATEGIES THROUGHOUT THE CERTIFICATION PERIOD. SKILLED NURSE WILL MAINTAIN SITUATIONAL AWARENESS AND WILL NOTIFY CLINICAL COMMERCIAL PHOTOGRAPHER AND PHYSICIAN/PROVIDER WITH ANY CHANGE IN CONDITION.] [...] 2025-08-20 00:00:00 Outpatient NEW ADMISSION DILIP [facility] [id number] 14.81
--- OUTSIDE RECORDS SUMMARY | 2025-08-19 19:00 | XMS_ITS | Clinical Summary ---
Author Organization Unknown Care Team Providers Care Alum Plant Supervisor Name Role Phone LOKI MILES MD, MICHA Unavailable Unavailable SAUL URIAS, DILIP Unavailable Unavailable Payers Payer Name Policy Type Policy Number Effective Date Expira tion Date MEDICARE - NGS [place] - PD [id number] Problems Condition Name Condition Details Condition Category [...] MAINTAIN SITUATIONAL AWARENESS AND WILL NOTIFY CLINICAL PERSONAL CARER AND PHYSICIAN/PROVIDER WITH ANY CHANGE IN CONDITION. [code = SKILLED NURSE TO PERFORM ENVIRONMENTAL SAFETY RISK ASSESSMENT AND FALL RISK ASSESSMENT AND PROVIDE INSTRUCTION TO IMPLEMENT ENVIRONMENTAL SAFETY AND FALL PREVENTION STRATEGIES THROUGHOUT THE CERTIFICATION PERIOD. SKILLED NURSE WILL MAINTAIN SITUATIONAL AWARENESS AND WILL NOTIFY CLINICAL PERSONAL CARER AND PHYSICIAN/PROVIDER WITH ANY CHANGE IN CONDITION.] [...] [facility] [id number] 14.81
--- OUTSIDE RECORDS SUMMARY | 2025-08-19 19:00 | XMS_ITS | Clinical Summary ---
Author Organization Unknown Care Team Providers Care Chemical Plant Operator Supervisor Name Role Phone LOKI MILES MD, MICHA Unavailable Unavailable SAUL URIAS, DILIP Unavailable Unavailable Payers Payer Name Policy Type Policy Number Effective Date Expira tion Date MEDICARE - NGS [place] - [place] [id number] Problems Condition Name Condition Details Condition Category [...] MAINTAIN SITUATIONAL AWARENESS AND WILL NOTIFY CLINICAL CUSTOMER QUALITY SPECIALIST AND PHYSICIAN/PROVIDER WITH ANY CHANGE IN CONDITION. [code = SKILLED NURSE TO PERFORM ENVIRONMENTAL SAFETY RISK ASSESSMENT AND FALL RISK ASSESSMENT AND PROVIDE INSTRUCTION TO IMPLEMENT ENVIRONMENTAL SAFETY AND FALL PREVENTION STRATEGIES THROUGHOUT THE CERTIFICATION PERIOD. SKILLED NURSE WILL MAINTAIN SITUATIONAL AWARENESS AND WILL NOTIFY CLINICAL CUSTOMER QUALITY SPECIALIST AND PHYSICIAN/PROVIDER WITH ANY CHANGE IN [...] 00:00:00 Outpatient NEW ADMISSION DILIP HUGHES [facility] [id number] 14.81
--- OUTSIDE RECORDS SUMMARY | 2025-08-19 19:00 | XMS_ITS | Clinical Summary ---
Author Organization Unknown Care Team Providers Care Information Consultant Name Role Phone LOKI MILES MD, MICHA Unavailable Unavailable SAUL URIAS, DILIP Unavailable Unavailable Payers Payer Name Policy Type Policy Number Effective Date Expira tion Date MEDICARE - N[place] - [place] [id number] Problems Condition Name Condition Details Condition Category [...] MAINTAIN SITUATIONAL AWARENESS AND WILL NOTIFY CLINICAL LICENSED LAND SURVEYOR AND PHYSICIAN/PROVIDER WITH ANY CHANGE IN CONDITION. [code = SKILLED NURSE TO PERFORM ENVIRONMENTAL SAFETY RISK ASSESSMENT AND FALL RISK ASSESSMENT AND PROVIDE INSTRUCTION TO IMPLEMENT ENVIRONMENTAL SAFETY AND FALL PREVENTION STRATEGIES THROUGHOUT THE CERTIFICATION PERIOD. SKILLED NURSE WILL MAINTAIN SITUATIONAL AWARENESS AND WILL NOTIFY CLINICAL LICENSED LAND SURVEYOR AND PHYSICIAN/PROVIDER WITH ANY CHANGE IN CONDITION.] [...] ADMISSION DILIP HUGHES [facility] [id number] 14.81
--- OUTSIDE RECORDS SUMMARY | 2025-08-19 19:00 | XMS_ITS | Clinical Summary ---
Author Organization Unknown Care Team Providers Care Horse Riding Coach Or Instructor Name Role Phone LOKI MILES MD, MICHA Unavailable Unavailable SAUL URIAS, DILIP Unavailable Unavailable Payers Payer Name Policy Type Policy Number Effective Date Expira tion Date MEDICARE - NGS [place] - [place] [id number] Problems Condition Name Condition Details Condition Category [...] MAINTAIN SITUATIONAL AWARENESS AND WILL NOTIFY CLINICAL TEST BAKER AND PHYSICIAN/PROVIDER WITH ANY CHANGE IN CONDITION. [code = SKILLED NURSE TO PERFORM ENVIRONMENTAL SAFETY RISK ASSESSMENT AND FALL RISK ASSESSMENT AND PROVIDE INSTRUCTION TO IMPLEMENT ENVIRONMENTAL SAFETY AND FALL PREVENTION STRATEGIES THROUGHOUT THE CERTIFICATION PERIOD. SKILLED NURSE WILL MAINTAIN SITUATIONAL AWARENESS AND WILL NOTIFY CLINICAL TEST BAKER AND PHYSICIAN/PROVIDER WITH ANY CHANGE IN CONDITION.] [...] 2025-08-20 00:00:00 Outpatient NEW ADMISSION DILIP [facility]GHES [facility] [id number] 14.81
--- OUTSIDE RECORDS SUMMARY | 2025-08-19 19:00 | XMS_ITS | Clinical Summary ---
Author Organization Unknown Care Team Providers Care Oracle Ascp Consultant Name Role Phone LOKI MILES MD, MICHA Unavailable Unavailable SAUL URIAS, DILIP Unavailable Unavailable Payers Payer Name Policy Type Policy Number Effective Date Expira tion Date MEDICARE - NGS [place] - PD [id number] Problems Condition Name Condition Details Condition Category [...] MAINTAIN SITUATIONAL AWARENESS AND WILL NOTIFY CLINICAL BATCH TRUCKER AND PHYSICIAN/PROVIDER WITH ANY CHANGE IN CONDITION. [code = SKILLED NURSE TO PERFORM ENVIRONMENTAL SAFETY RISK ASSESSMENT AND FALL RISK ASSESSMENT AND PROVIDE INSTRUCTION TO IMPLEMENT ENVIRONMENTAL SAFETY AND FALL PREVENTION STRATEGIES THROUGHOUT THE CERTIFICATION PERIOD. SKILLED NURSE WILL MAINTAIN SITUATIONAL AWARENESS AND WILL NOTIFY CLINICAL BATCH TRUCKER AND PHYSICIAN/PROVIDER WITH ANY CHANGE IN CONDITION.] [...] Outpatient NEW ADMISSION DILIP HUGHES [facility] [id number] 14.81
--- OUTSIDE RECORDS SUMMARY | 2025-08-19 19:00 | XMS_ITS | Clinical Summary ---
Author Organization Unknown Care Team Providers Care Airborne Electronics Analyst Name Role Phone LOKI MILES MD, MICHA Unavailable Unavailable SAUL URIAS, DILIP Unavailable Unavailable Payers Payer Name Policy Type Policy Number Effective Date Expira tion Date MEDICARE - NGS [place] - PD [id number] Problems Condition Name Condition Details Condition Category [...] MAINTAIN SITUATIONAL AWARENESS AND WILL NOTIFY CLINICAL HONEY BLENDER AND PHYSICIAN/PROVIDER WITH ANY CHANGE IN CONDITION. [code = SKILLED NURSE TO PERFORM ENVIRONMENTAL SAFETY RISK ASSESSMENT AND FALL RISK ASSESSMENT AND PROVIDE INSTRUCTION TO IMPLEMENT ENVIRONMENTAL SAFETY AND FALL PREVENTION STRATEGIES THROUGHOUT THE CERTIFICATION PERIOD. SKILLED NURSE WILL MAINTAIN SITUATIONAL AWARENESS AND WILL NOTIFY CLINICAL HONEY BLENDER AND PHYSICIAN/PROVIDER WITH ANY CHANGE IN CONDITION.] [...] 00:00:00 2025-08-20 00:00:00 Outpatient NEW ADMISSION DILIP [facility]ES [facility] [id number] 14.81
--- OUTSIDE RECORDS SUMMARY | 2025-08-19 19:00 | XMS_ITS | Clinical Summary ---
Author Organization Unknown Care Team Providers Care Plywood Factory Worker Name Role Phone LOKI MILES MD, MICHA Unavailable Unavailable SAUL URIAS, DILIP Unavailable Unavailable Payers Payer Name Policy Type Policy Number Effective Date Expira tion Date MEDICARE - NGS [place] - [place] [id number] Problems Condition Name Condition Details Condition Category [...] MAINTAIN SITUATIONAL AWARENESS AND WILL NOTIFY CLINICAL BOTTOM LIQUOR ATTENDANT AND PHYSICIAN/PROVIDER WITH ANY CHANGE IN CONDITION. [code = SKILLED NURSE TO PERFORM ENVIRONMENTAL SAFETY RISK ASSESSMENT AND FALL RISK ASSESSMENT AND PROVIDE INSTRUCTION TO IMPLEMENT ENVIRONMENTAL SAFETY AND FALL PREVENTION STRATEGIES THROUGHOUT THE CERTIFICATION PERIOD. SKILLED NURSE WILL MAINTAIN SITUATIONAL AWARENESS AND WILL NOTIFY CLINICAL BOTTOM LIQUOR ATTENDANT AND PHYSICIAN/PROVIDER WITH ANY CHANGE IN [...] 00:00:00 Outpatient NEW ADMISSION DILIP HUGHES [facility] [id number] 14.81
--- OUTSIDE RECORDS SUMMARY | 2025-08-19 19:00 | XMS_ITS | Clinical Summary ---
Author Organization Unknown Care Team Providers Care Technical Services Librarian Name Role Phone LOKI MILES MD, MICHA Unavailable Unavailable SAUL URIAS, DILIP Unavailable Unavailable Payers Payer Name Policy Type Policy Number Effective Date Expira tion Date MEDICARE - NGS [place] - [place] [id number] Problems Condition Name Condition Details Condition Category [...] MAINTAIN SITUATIONAL AWARENESS AND WILL NOTIFY CLINICAL SPACE SYSTEMS OPERATIONS SUPERINTENDENT AND PHYSICIAN/PROVIDER WITH ANY CHANGE IN CONDITION. [code = SKILLED NURSE TO PERFORM ENVIRONMENTAL SAFETY RISK ASSESSMENT AND FALL RISK ASSESSMENT AND PROVIDE INSTRUCTION TO IMPLEMENT ENVIRONMENTAL SAFETY AND FALL PREVENTION STRATEGIES THROUGHOUT THE CERTIFICATION PERIOD. SKILLED NURSE WILL MAINTAIN SITUATIONAL AWARENESS AND WILL NOTIFY CLINICAL SPACE SYSTEMS OPERATIONS SUPERINTENDENT AND PHYSICIAN/PROVIDER WITH ANY CHANGE IN CONDITION.] [...] 00:00:00 Outpatient NEW ADMISSION DILIP HUGHES [facility] [id number] 14.81
--- OUTSIDE RECORDS SUMMARY | 2025-08-19 19:00 | XMS_ITS | Clinical Summary ---
Author Organization Unknown Care Team Providers Care Investigator Vice Name Role Phone LOKI MILES MD, MICHA Unavailable Unavailable SAUL URIAS, DILIP Unavailable Unavailable Payers Payer Name Policy Type Policy Number Effective Date Expira tion Date MEDICARE - N[place] - [place] [id number] Problems Condition Name Condition Details Condition Category [...] MAINTAIN SITUATIONAL AWARENESS AND WILL NOTIFY CLINICAL DIRECTOR SELECTION AND ADMINISTRATION AND PHYSICIAN/PROVIDER WITH ANY CHANGE IN CONDITION. [code = SKILLED NURSE TO PERFORM ENVIRONMENTAL SAFETY RISK ASSESSMENT AND FALL RISK ASSESSMENT AND PROVIDE INSTRUCTION TO IMPLEMENT ENVIRONMENTAL SAFETY AND FALL PREVENTION STRATEGIES THROUGHOUT THE CERTIFICATION PERIOD. SKILLED NURSE WILL MAINTAIN SITUATIONAL AWARENESS AND WILL NOTIFY CLINICAL DIRECTOR SELECTION AND ADMINISTRATION AND PHYSICIAN/PROVIDER WITH ANY CHANGE IN CONDITION.] [...] CARE WILL BE ESTABLISHED THAT MEETS PATIENT'S RETIREMENT NEEDS AND INCLUDES PATIENT GOAL FOR HOME [...] 2025-08-20 00:00:00 Outpatient NEW ADMISSION DILIP HUGHES [facility] [id number] 14.81
== END 2025-07-03 17:19 | disposition home or self-care (01) ==
PROVIDERS: PCP Internal Medicine; Visit Provider Nurse Practitioner Family
DX: J98.11 Atelectasis (principal)

== ENCOUNTER → 2025-07-03 16:11 | Outpatient (BNVA) | payer MEDICARE, MEDICAID, SELFPAY | PROVIDERS: PCP Internal Medicine; Visit Provider Nurse Practitioner Family | DX: J98.11 Atelectasis (principal) | CPT/HCPCS: 99212 ==

== ENCOUNTER 2025-07-08 13:22 | Outpatient (AMB) | payer MEDICARE, MEDICAID, SELFPAY ==
--- NOTE | 2025-07-08 13:40 | A.SPINEOV_ITS ---
Intake Visit Reasons: 1st post op Intake Note: Mr. Mcnulty is here today for his 1st post op. Residential Green Building Designer Required: No Allergies Penicillins Allergy (Severe, Verified 07/03/25 16:15) Rash tramadol Allergy (Unknown, Verified 07/03/25 16:15) inadequate response Assessment & Plan Assessment & Plan (1) H/O excision of lamina of cervical vertebra for decompression of spinal cord: Code(s): Z98.890 - Other specified postprocedural states Category: Surgical Plan Operation: C4 and C5 laminectomy Jose is a 74 year old male who comes in today for his 1st postoperative visit after having the above-mentioned procedure completed by Dr. Jones. This visit was conducted with the assistance of a live translator/interpreter from his long-term. To recap he had a C4-5 ACDF prior to this, however after repeat MRI imaging it was found that he had continued posterior compression despite good anterior decompression. After being evaluated by Dr. Jones in clinic, he was offered the above-mentioned procedure. Unfortunately, he reports that he has not seen much improvement since his surgery aside from being able to range his neck better and having a overall relief of the pulling/pressure in his neck. He states that his bilateral upper extremities are essentially the same. We discussed the postoperative healing course, and I answered any questions that he had. No new neurological deficits. The patient is wheelchair-bound at baseline. I removed the rickie overlying his posterior neck incision during this visit. He tolerated the removal well. I would like to follow up with the patient again in 6 weeks and obtain a set of x-rays. Chidi Jones MD,PhD [facility] Coding Level of Care Code Global (50837) Diagnoses H/O excision of lamina of cervical vertebra for decompression of spinal cord Z98.890
--- OUTSIDE RECORDS SUMMARY | 2025-08-19 19:00 | XMS_ITS | Clinical Summary ---
Author Organization Unknown Care Team Providers Care Activity Specialist Name Role Phone LOKI MILES MD, MICHA Unavailable Unavailable SAUL URIAS, DILIP Unavailable Unavailable Payers Payer Name Policy Type Policy Number Effective Date Expira tion Date MEDICARE - NGS [place] - PD [id number] Problems Condition Name Condition Details Condition Category Status Onset Date Resolution Date Last Treatment Date Treating Clinician Comments ENCOUNTER FOR OTHER SPECIFIED SURGICAL AFTERCARE Active 2024-08 00:00: 00 CODING TO BE COMPLETED AFTER CLINICAL DOCUMENTATIO N REVIEW Active 2024-08 00:00: 00 Allergies, Adverse Reactions, Alerts Allergy Name Allergy Type Status Severity Reaction(s) Onset Date Inactive Date Treating Clinician Comments PENICILLIN Propensity to adverse reactions Active 2024-08 15:33: 00 TRAMADOL Propensity to adverse reactions Active 2024-08 15:33: 09 Immunizations Ordered Immunization Name Filled Immunization Name Date Status Comments Refusal Reason INFLUENZA, TIV (INACTIVATED) 2025-06-18 00:00:00 Vital Signs Vital Name Observation Time Observation Value Commen ts Temperature 2025-07-06 11:23:00.000 97.8 [degF] Temperature 2025-06-29 11:34:00.000 97.7 [degF] Temperature 2025-06-22 14:22:00.000 98.1 [degF] Temperature 2025-06-19 12:12:00.000 98.6 [degF] BMI (%) 2025-06-22 14:22:00.000 29 kg/m2 BMI (%) 2025-06-19 12:12:00.000 38 kg/m2 Height 2025-06-22 14:22:00.000 66 [in_us] Height 2025-06-19 12:12:00.000 63 [in_us] Pulse 2025-07-06 11:23:00.000 78 /min Pulse 2025-06-29 11:34:00.000 73 /min Pulse 2025-06-22 14:22:00.000 78 /min Pulse 2025-06-19 12:12:00.000 75 /min O2 Saturation (%) 2025-07-06 11:23:00.000 93 % O2 Saturation (%) 2025-06-29 11:34:00.000 92 % O2 Saturation (%) 2025-06-19 12:12:00.000 86 % Respirations 2025-07-06 11:23:00.000 20 /min Respirations 2025-06-29 11:34:00.000 20 /min Respirations 2025-06-22 14:22:00.000 18 /min Respirations 2025-06-19 12:12:00.000 22 /min Weight (lbs) 2025-06-22 14:22:00.000 180 [lb_av] Weight (lbs) 2025-06-19 12:12:00.000 215 [lb_av] Systolic Blood Pressure 2025-07-06 11:23:00.000 140 mm [Hg] Systolic Blood Pressure 2025-06-29 11:34:00.000 154 mm [Hg] Systolic Blood Pressure 2025-06-22 14:22:00.000 124 mm [Hg] Systolic Blood Pressure 2025-06-19 12:12:00.000 130 mm [Hg] Diastolic Blood Pressure 2025-07-06 11:23:00.000 70 mm [Hg] Diastolic Blood Pressure 2025-06-29 11:34:00.000 86 mm [Hg] Diastolic Blood Pressure 2025-06-22 14:22:00.000 82 mm [Hg] Diastolic Blood Pressure 2025-06-19 12:12:00.000 86 mm [Hg] Plan of Treatment Planned Activity Planned Date Details Comments Future Scheduled Test SKILLED NU RSE TO EVALUATE PATIENT, IDENTIFY PRIMARY AND CO-MORBID CONDITIONS CODED PER CODING GUIDELINES, AND DEVELOP PATIENT SPECIFIC PLAN OF CARE THAT INCLUDES PATIENT GOAL FOR HOME HEALTH. PLAN OF CARE TO INCLUDE 3 PRN VISIT(S) FOR OASIS DATA COLLECTION/COMPREHENSIVE ASSESSMENT AT TIMEPOINTS PER FEDERAL REGULATIONS. THIS INCLUDES VISITS FOR JAMILA, RECERT, SCIC, AND/OR DC. [code = SKILLED NURSE TO EVALUATE PATIENT, IDENTIFY PRIMARY AND CO-MORBID CONDITIONS CODED PER CODING GUIDELINES, AND DEVELOP PATIENT SPECIFIC PLAN OF CARE THAT INCLUDES PATIENT GOAL FOR HOME HEALTH. PLAN OF CARE TO INCLUDE 3 PRN VISIT(S) FOR OASIS DATA COLLECTION/COMPREHENSIVE ASSESSMENT AT TIMEPOINTS PER FEDERAL REGULATIONS. THIS INCLUDES VISITS FOR JAMILA, RECERT, SCIC, AND/OR DC.] Future Scheduled Test SKILLED NU RSE TO REVIEW PATIENT MEDICATIONS (PRESCRIPTION/OTC). INSTRUCT PATIENT/CAREGIVER ON ALL MEDICATIONS INCLUDING PURPOSE, WHEN TO TAKE, IMPORTANCE OF MEDICATION ADHERENCE, MONITORING OF EFFECTIVENESS, ADVERSE DRUG REACTIONS, POSSIBLE SIDE EFFECTS, AND WHEN TO NOTIFY AGENCY OR PHYSICIAN/PROVIDER OF ANY CONCERNS. [code = SKILLED NURSE TO REVIEW PATIENT MEDICATIONS (PRESCRIPTION/OTC). INSTRUCT PATIENT/CAREGIVER ON ALL MEDICATIONS INCLUDING PURPOSE, WHEN TO TAKE, IMPORTANCE OF MEDICATION ADHERENCE, MONITORING OF EFFECTIVENESS, ADVERSE DRUG REACTIONS, POSSIBLE SIDE EFFECTS, AND WHEN TO NOTIFY AGENCY OR PHYSICIAN/PROVIDER OF ANY CONCERNS.] Future Scheduled Test PATIENT LAINEZ S A RISK OF HOSPITALIZATION AND ED USE. SKILLED NURSE TO ESTABLISH SUPPORT MEASURES TO MINIMIZE RISK OF HOSPITALIZATION AND ED USE, AND INSTRUCT PATIENT/CAREGIVER ON METHODS TO REDUCE AVOIDABLE HOSPITALIZATION AND ED USE. [code = PATIENT HAS A RISK OF HOSPITALIZATION AND ED USE. SKILLED NURSE TO ESTABLISH SUPPORT MEASURES TO MINIMIZE RISK OF HOSPITALIZATION AND ED USE, AND INSTRUCT PATIENT/CAREGIVER ON METHODS TO REDUCE AVOIDABLE HOSPITALIZATION AND ED USE.] Future Scheduled Test SKILLED NU RSE TO PROVIDE INSTRUCTION TO PATIENT/CAREGIVER RELATED TO DISCHARGE PLANNING. [code = SKILLED NURSE TO PROVIDE INSTRUCTION TO PATIENT/CAREGIVER RELATED TO DISCHARGE PLANNING.] Future Scheduled Test SKILLED NU RSE TO PERFORM ENVIRONMENTAL SAFETY RISK ASSESSMENT AND FALL RISK ASSESSMENT AND PROVIDE INSTRUCTION TO IMPLEMENT ENVIRONMENTAL SAFETY AND FALL PREVENTION STRATEGIES THROUGHOUT THE CERTIFICATION PERIOD. SKILLED NURSE WILL MAINTAIN SITUATIONAL AWARENESS AND WILL NOTIFY CLINICAL CAN LINE OPERATOR AND PHYSICIAN/PROVIDER WITH ANY CHANGE IN CONDITION. [code = SKILLED NURSE TO PERFORM ENVIRONMENTAL SAFETY RISK ASSESSMENT AND FALL RISK ASSESSMENT AND PROVIDE INSTRUCTION TO IMPLEMENT ENVIRONMENTAL SAFETY AND FALL PREVENTION STRATEGIES THROUGHOUT THE CERTIFICATION PERIOD. SKILLED NURSE WILL MAINTAIN SITUATIONAL AWARENESS AND WILL NOTIFY CLINICAL CAN LINE OPERATOR AND PHYSICIAN/PROVIDER WITH ANY CHANGE IN CONDITION.] Future Scheduled Test SKILLED NU RSE FOR OBSERVATION AND ASSESSMENT OF PATIENT S PAIN LEVEL AND EFFECTIVENESS OF PAIN MANAGEMENT REGIMEN. SKILLED NURSE TO INSTRUCT PATIENT/CAREGIVER REGARDING PHARMACOLOGIC AND NON-PHARMACOLOGIC PAIN CONTROL MEASURES. SKILLED NURSE TO REPORT TO PHYSICIAN IF PAIN LEVEL IS OUTSIDE OF ESTABLISHED PARAMETERS. [code = SKILLED NURSE FOR OBSERVATION AND ASSESSMENT OF PATIENT S PAIN LEVEL AND EFFECTIVENESS OF PAIN MANAGEMENT REGIMEN. SKILLED NURSE TO INSTRUCT PATIENT/CAREGIVER REGARDING PHARMACOLOGIC AND NON-PHARMACOLOGIC PAIN CONTROL MEASURES. SKILLED NURSE TO REPORT TO PHYSICIAN IF PAIN LEVEL IS OUTSIDE OF ESTABLISHED PARAMETERS.] Future Scheduled Test SKILLED NU RSE TO ASSESS PATIENT'S SKIN INTEGRITY AND INSTRUCT PATIENT/CAREGIVER ON MEASURES TO PREVENT PRESSURE ULCERS. [code = SKILLED NURSE TO ASSESS PATIENT'S SKIN INTEGRITY AND INSTRUCT PATIENT/CAREGIVER ON MEASURES TO PREVENT PRESSURE ULCERS.] Future Scheduled Test SKILLED NU RSE TO ASSESS ANXIETY AND PROVIDE ASSISTANCE TO PATIENT FOR UNDERSTANDING AND MANAGEMENT OF FEELINGS. [code = SKILLED NURSE TO ASSESS ANXIETY AND PROVIDE ASSISTANCE TO PATIENT FOR UNDERSTANDING AND MANAGEMENT OF FEELINGS.] Future Scheduled Test SKILLED NU RSE TO PROVIDE ASSESSMENT AND TEACHING/REINFORCEMENT OF MANAGEMENT OF DEPRESSION INCLUDING DISEASE PROCESS, MEDICATION MANAGEMENT, COPING SKILLS AND IDENTIFY CHANGES ASSOCIATED WITH DEPRESSIVE DISORDERS FOR EARLY INTERVENTION. [code = SKILLED NURSE TO PROVIDE ASSESSMENT AND TEACHING/REINFORCEMENT OF MANAGEMENT OF DEPRESSION INCLUDING DISEASE PROCESS, MEDICATION MANAGEMENT, COPING SKILLS AND IDENTIFY CHANGES ASSOCIATED WITH DEPRESSIVE DISORDERS FOR EARLY INTERVENTION.] Future Scheduled Test SKILLED NU RSE FOR O/A AND SKILLED TEACHING RELATED TO ALTERED SKIN INTEGRITY SURGICAL INCISION [code = SKILLED NURSE FOR O/A AND SKILLED TEACHING RELATED TO ALTERED SKIN INTEGRITY SURGICAL INCISION] Future Scheduled Test SKILLED NU RSE TO PROVIDE TEACHING ON SIGNS AND SYMPTOMS AND MANAGEMENT OF HYPERTENSION. [code = SKILLED NURSE TO PROVIDE TEACHING ON SIGNS AND SYMPTOMS AND MANAGEMENT OF HYPERTENSION.] Future Scheduled Test SKILLED NU RSE FOR O/A AND SKILLED TEACHING IN MANAGEMENT OF PAD VASCULAR DISEASE. [code = SKILLED NURSE FOR O/A AND SKILLED TEACHING IN MANAGEMENT OF PAD VASCULAR DISEASE.] Future Scheduled Test SKILLED NU RSE TO PROVIDE TEACHING/REINFORCEMENT RELATED TO URINARY INCONTINENCE. 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 Goal Provider Goal - PATIENT/CAREGIVER WILL VERBALIZE UNDERSTANDING OF EDUCATION PROVIDED ON MEDICATIONS BY THE END OF THE CERTIFICATION PERIOD. Goal Provider Goal - PATIENT WILL HAVE SUPPORT MEASURES ESTABLISHED TO PREVENT HOSPITALIZATION AND ED USE AND PATIENT/CAREGIVER WILL VERBALIZE/DEMONSTRATE METHODS TO REDUCE AVOIDABLE HOSPITALIZATION AND ED USE BY END OF EPISODE. Goal Provider Goal - PATIENT/CAREGIVER WILL VERBALIZE UNDERSTANDING OF DISCHARGE PLANNING INSTRUCTIONS BY DATE OF DISCHARGE. Goal Provider Goal - PATIENT/CAREGIVER WILL VERBALIZE/DEMONSTRATE EFFECTIVE ENVIRONMENTAL SAFETY AND FALL PREVENTION STRATEGIES, WILL REMAIN SAFE IN THE COMMUNITY, AND WILL BE FREE OF DANGER TO SELF AND OTHERS THROUGHOUT THE CERTIFICATION PERIOD. Goal Provider Goal - PATIENT/CAREGIVER WILL DEMONSTRATE UNDERSTANDING OF PHARMACOLOGIC AND NONPHARMACOLOGIC PAIN CONTROL MEASURES AND PATIENT WILL HAVE IMPROVEMENT IN PAIN INTERFERING WITH ACTIVITY EVIDENCED BY PAIN AT A LEVEL THAT IS ACCEPTABLE TO THE PATIENT AND PAIN LEVEL WITHIN ESTABLISHED PARAMETERS BY END OF CERTIFICATION PERIOD. Goal Provider Goal - PATIENT/CAREGIVER WILL VERBALIZE UNDERSTANDING OF PRESSURE ULCER PREVENTION BY END OF THE EPISODE. Goal Provider Goal - SYMPTOMS OF ANXIETY ARE IDENTIFIED AND INTERVENTIONS INITIATED TO ENABLE PATIENT TO UNDERSTAND AND MANAGE FEELINGS THROUGHOUT EPISODE. Goal Provider Goal - PATIENT/CAREGIVER WILL VERBALIZE/DEMONSTRATE UNDERSTANDING OF THE MANAGEMENT OF DEPRESSION THROUGHOUT THE CERTIFICATION PERIOD AND SYMPTOMS ARE IDENTIFIED AND MANAGED TO MAINTAIN PATIENT SAFETY IN THE HOME. Goal Provider Goal - PATIENT/CAREGIVER WILL VERBALIZE/DEMONSTRATE UNDERSTANDING OF TEACHING RELATED TO ALTERED SKIN INTEGRITY BY END OF CERTIFICATION PERIOD. Goal Provider Goal - PATIENT/CAREGIVER WILL VERBALIZE SIGNS AND SYMPTOMS OF HYPERTENSION AND WILL BE ABLE TO DEMONSTRATE ABILITY TO MANAGE EXACERBATION BY END OF THE EPISODE. Goal Provider Goal - PATIENT/CAREGIVER WILL VERBALIZE/DEMONSTRATE THE ABILITY TO MANAGE PAD CIRCULATORY DISEASE PROCESS AND EXACERBATIONS WILL BE IDENTIFIED FOR EARLY INTERVENTION THROUGHOUT THE CERTIFICATION PERIOD. Goal Provider Goal - PATIENT / CAREGIVER WILL VERBALIZE UNDERSTANDING OF EFFECTS OF URINARY INCONTINENCE BY THE END OF THE CERTIFICATION PERIOD. Goal Provider Goal - PATIENT/CAREGIVER WILL VERBALIZE/DEMONSTRATE ABILITY TO MANAGE SEVERE FLEXION CONTRACTION OF ALL JOINTS MUSCULOSKELETAL DISEASE WHILE MAINTAINING SAFETY THROUGHOUT THE EPISODE. Progress Notes Progress Notes <paragraph>[Visit Date: 2024 by DILIP HUGHES RN]:</paragraph><paragraph>SNV 07/06</paragraph><paragraph></paragraph><paragraph>ABNORMAL VITALS: VS WITHIN SET PARAMETERS </paragraph><paragraph></paragraph><paragraph>FALLS: DENIES FALLS</paragraph><paragraph></paragraph><paragraph>ABNORMAL PHYSICAL ASSESSMENT FINDINGS: NO ABNORMAL FINDINGS</paragraph><paragraph></paragraph><paragraph>MEDICATION CHANGES: NO MED CHANGES</paragraph><paragraph></paragraph><paragraph>OBSERVATION AND ASSESSMENT PROVIDED: PATIENT A&OX4. UPON ARRIVAL PT STATED HE NAD 7/10 PAIN , WHEN ASKED WHERE THE PAIN IS LOCATED HE STATED NO PAIN, WHEN ROLLING PT TO ASSESS SURGICAL WOUND, PT STATED HE HAD RIGHT SIDED PAIN WHEN ROLLING, CO 5/10 PAIN, SPOKE TO DIRECTOR REGARDING PAIN, STATES SHE WILL DISCUSS POSSIBLE SCRIPT FOR MUSCLE RELAXER AT PCP APPT, PT ON OXYCODONE, REQUESTED STAFF TO GIVE TO PATIENT IF CO PLAIN PERSIST AND TO TRY TYLENOL FIRST . PATIENT HAS DYSPHAGIA. LUE CONTRACTED. MINIMAL MOVEMENT TO RUE. WEAKNESS TO BLLE. EQUAL STRENGTH. PATIENT WC BOUND. LIVES IN RETIREMENT. LS CLEAR ON RA. DENIES CP/PALPITATIONS/SOB/DIZZINESS. DENIES NEW NUMBNESS OR TINGLING TO ALL EXTREMITIES. NO OTHER NEURO DEFICITS FROM PATIENTS BASELINE. DENIES URINARY SYMPTOMS. LBM 07/06. DENIES N/V/D. SURGICAL INCISION INTACT, 5 BERNARDINO PRESENT. NO S/S OF INFECTION. DIRECTOR STATED PT REFUSES TO GET OOB UNTIL USUALLY 3 PM AND GOES TO BED AT 8 PM. ENCOURAGED PT TO GET OOB DURING DAY TO PREVENT FURTHER COMPLICATIONS.</paragraph><paragraph></paragraph><paragraph>EDUCATION: EDUCATED PATIENT AND STAFF ON S/S OF SURGICAL SITE INFECTION. EDUCATED ON S/S OF STROKE AND TO SEEK IMMEDIATE MEDICAL ATTENTION. EDUCATED ON PAIN RELIEF TECHNIQUES. </paragraph><paragraph></paragraph><paragraph>INTERVENTIONS NEEDED AT NEXT VISIT: NEURO ASSESSMENT, PAIN ASSESSMENT </paragraph><paragraph></paragraph><paragraph>NEXT MD APPOINTMENT: 07/08 PCP/POST OP/STAPLE REMOVAL, 07/14 FOOT CARE BY NURSES, 07/22 PODIATRY </paragraph><paragraph></paragraph><paragraph>PT AND STAFF INSTRUCTED TO CALL [facility] WITH ANY QUESTIONS OR CONCERNS AND/OR CHANGES IN CONDITION, STATE UNDERSTANDING</paragraph> Encounters Start Date/Time End Date/Time Encounter Type Admission Type Attending Clinicians Care Facility Care Department Encounter ID Discharge Date Discharge Status Discharge Condition Discharge Reason Percent Goals Met 2025-06-22 00:00:00 2025-08-20 00:00:00 Outpatient NEW ADMISSION SAULDILIP [facility] [id number] 14.81
--- OUTSIDE RECORDS SUMMARY | 2025-08-19 19:00 | XMS_ITS | Clinical Summary ---
Author Organization Unknown Care Team Providers Care Hot Dipper Name Role Phone LOKI MILES MD, MICHA Unavailable Unavailable SAUL URIAS, DILIP Unavailable Unavailable Payers Payer Name Policy Type Policy Number Effective Date Expira tion Date MEDICARE - N[place] - [place] [id number] Problems Condition Name Condition Details Condition Category [...] MAINTAIN SITUATIONAL AWARENESS AND WILL NOTIFY CLINICAL RN FLOAT AND PHYSICIAN/PROVIDER WITH ANY CHANGE IN CONDITION. [code = SKILLED NURSE TO PERFORM ENVIRONMENTAL SAFETY RISK ASSESSMENT AND FALL RISK ASSESSMENT AND PROVIDE INSTRUCTION TO IMPLEMENT ENVIRONMENTAL SAFETY AND FALL PREVENTION STRATEGIES THROUGHOUT THE CERTIFICATION PERIOD. SKILLED NURSE WILL MAINTAIN SITUATIONAL AWARENESS AND WILL NOTIFY CLINICAL RN FLOAT AND PHYSICIAN/PROVIDER WITH ANY CHANGE IN CONDITION.] [...] CARE WILL BE ESTABLISHED THAT MEETS PATIENT'S RESIDENTIAL NEEDS AND INCLUDES PATIENT GOAL FOR HOME [...] EQUAL STRENGTH. PATIENT WC BOUND. LIVES IN [facility]. LS CLEAR ON RA. DENIES CP/PALPITATIONS/SOB/DIZZINESS. DENIES [...] 2025-08-20 00:00:00 Outpatient NEW ADMISSION [facility]ULDILIP [facility] [id number] 14.81
--- OUTSIDE RECORDS SUMMARY | 2025-08-19 19:00 | XMS_ITS | Clinical Summary ---
Author Organization Unknown Care Team Providers Care Check Writer Name Role Phone LOKI MILES MD, MICHA Unavailable Unavailable SAUL URIAS, DILIP Unavailable Unavailable Payers Payer Name Policy Type Policy Number Effective Date Expira tion Date MEDICARE - NGS [place] - PD [id number] Problems Condition Name Condition Details Condition Category [...] MAINTAIN SITUATIONAL AWARENESS AND WILL NOTIFY CLINICAL MANUFACTURING QUALITY ENGINEER AND PHYSICIAN/PROVIDER WITH ANY CHANGE IN CONDITION. [code = SKILLED NURSE TO PERFORM ENVIRONMENTAL SAFETY RISK ASSESSMENT AND FALL RISK ASSESSMENT AND PROVIDE INSTRUCTION TO IMPLEMENT ENVIRONMENTAL SAFETY AND FALL PREVENTION STRATEGIES THROUGHOUT THE CERTIFICATION PERIOD. SKILLED NURSE WILL MAINTAIN SITUATIONAL AWARENESS AND WILL NOTIFY CLINICAL MANUFACTURING QUALITY ENGINEER AND PHYSICIAN/PROVIDER WITH ANY CHANGE IN CONDITION.] [...] CARE WILL BE ESTABLISHED THAT MEETS PATIENT'S LONG-TERM NEEDS AND INCLUDES PATIENT GOAL FOR HOME [...] EQUAL STRENGTH. PATIENT WC BOUND. LIVES IN [place]. LS CLEAR ON RA. DENIES CP/PALPITATIONS/SOB/DIZZINESS. DENIES [...] 00:00:00 2025-08-20 00:00:00 Outpatient NEW ADMISSION SAULDILIP [facility] [id number] 14.81
--- OUTSIDE RECORDS SUMMARY | 2025-08-19 19:00 | XMS_ITS | Clinical Summary ---
Author Organization Unknown Care Team Providers Care Carton Liner Name Role Phone LOKI MILES MD, MICHA Unavailable Unavailable SAUL URIAS, DILIP Unavailable Unavailable Payers Payer Name Policy Type Policy Number Effective Date Expira tion Date MEDICARE - NGS [place] - PD [id number] Problems Condition Name Condition Details Condition Category [...] MAINTAIN SITUATIONAL AWARENESS AND WILL NOTIFY CLINICAL CONCRETING SUPERVISOR AND PHYSICIAN/PROVIDER WITH ANY CHANGE IN CONDITION. [code = SKILLED NURSE TO PERFORM ENVIRONMENTAL SAFETY RISK ASSESSMENT AND FALL RISK ASSESSMENT AND PROVIDE INSTRUCTION TO IMPLEMENT ENVIRONMENTAL SAFETY AND FALL PREVENTION STRATEGIES THROUGHOUT THE CERTIFICATION PERIOD. SKILLED NURSE WILL MAINTAIN SITUATIONAL AWARENESS AND WILL NOTIFY CLINICAL CONCRETING SUPERVISOR AND PHYSICIAN/PROVIDER WITH ANY CHANGE IN CONDITION.] [...] CARE WILL BE ESTABLISHED THAT MEETS PATIENT'S NURSING HOME NEEDS AND INCLUDES PATIENT GOAL FOR HOME [...] EQUAL STRENGTH. PATIENT WC BOUND. LIVES IN LONG TERM. LS CLEAR ON RA. DENIES CP/PALPITATIONS/SOB/DIZZINESS. DENIES [...] 00:00:00 2025-08-20 00:00:00 Outpatient NEW ADMISSION SAULDILIP [facility] [id number] 14.81
--- OUTSIDE RECORDS SUMMARY | 2025-08-19 19:00 | XMS_ITS | Clinical Summary ---
Author Organization Unknown Care Team Providers Care Community Resource Officer Name Role Phone LOKI MILES MD, MICHA Unavailable Unavailable SAUL URIAS, DILIP Unavailable Unavailable Payers Payer Name Policy Type Policy Number Effective Date Expira tion Date MEDICARE - [place] - [place] [id number] Problems Condition Name Condition Details Condition Category [...] MAINTAIN SITUATIONAL AWARENESS AND WILL NOTIFY CLINICAL ELECTROFORMER AND PHYSICIAN/PROVIDER WITH ANY CHANGE IN CONDITION. [code = SKILLED NURSE TO PERFORM ENVIRONMENTAL SAFETY RISK ASSESSMENT AND FALL RISK ASSESSMENT AND PROVIDE INSTRUCTION TO IMPLEMENT ENVIRONMENTAL SAFETY AND FALL PREVENTION STRATEGIES THROUGHOUT THE CERTIFICATION PERIOD. SKILLED NURSE WILL MAINTAIN SITUATIONAL AWARENESS AND WILL NOTIFY CLINICAL ELECTROFORMER AND PHYSICIAN/PROVIDER WITH ANY CHANGE IN CONDITION.] [...] CARE WILL BE ESTABLISHED THAT MEETS PATIENT'S [facility] NEEDS AND INCLUDES PATIENT GOAL FOR HOME [...] EQUAL STRENGTH. PATIENT WC BOUND. LIVES IN PRISON. LS CLEAR ON RA. DENIES CP/PALPITATIONS/SOB/DIZZINESS. DENIES [...] 00:00:00 Outpatient NEW ADMISSION SAULDILIP [facility] [id number] 14.81
--- OUTSIDE RECORDS SUMMARY | 2025-08-19 19:00 | XMS_ITS | Clinical Summary ---
Author Organization Unknown Care Team Providers Care Supervisor Paint Roller Covers Name Role Phone LOKI MILES MD, MICHA Unavailable Unavailable SAUL URIAS, DILIP Unavailable Unavailable Payers Payer Name Policy Type Policy Number Effective Date Expira tion Date MEDICARE - NGS [place] - PD [id number] Problems Condition Name Condition Details Condition Category [...] MAINTAIN SITUATIONAL AWARENESS AND WILL NOTIFY CLINICAL FISHER POT AND PHYSICIAN/PROVIDER WITH ANY CHANGE IN CONDITION. [code = SKILLED NURSE TO PERFORM ENVIRONMENTAL SAFETY RISK ASSESSMENT AND FALL RISK ASSESSMENT AND PROVIDE INSTRUCTION TO IMPLEMENT ENVIRONMENTAL SAFETY AND FALL PREVENTION STRATEGIES THROUGHOUT THE CERTIFICATION PERIOD. SKILLED NURSE WILL MAINTAIN SITUATIONAL AWARENESS AND WILL NOTIFY CLINICAL FISHER POT AND PHYSICIAN/PROVIDER WITH ANY CHANGE IN CONDITION.] [...] CARE WILL BE ESTABLISHED THAT MEETS PATIENT'S HALF-WAY NEEDS AND INCLUDES PATIENT GOAL FOR HOME [...] EQUAL STRENGTH. PATIENT WC BOUND. LIVES IN ALF. LS CLEAR ON RA. DENIES CP/PALPITATIONS/SOB/DIZZINESS. DENIES [...] 00:00:00 2025-08-20 00:00:00 Outpatient NEW ADMISSION [facility]ULDILIP [facility] [id number] 14.81
--- OUTSIDE RECORDS SUMMARY | 2025-08-19 19:00 | XMS_ITS | Clinical Summary ---
Author Organization Unknown Care Team Providers Care Fisher Pound Net Or Trap Name Role Phone LOKI MILES MD, MICHA Unavailable Unavailable SAUL URIAS, DILIP Unavailable Unavailable Payers Payer Name Policy Type Policy Number Effective Date Expira tion Date MEDICARE - NGS [place] - PD [id number] Problems Condition Name Condition Details Condition Category [...] MAINTAIN SITUATIONAL AWARENESS AND WILL NOTIFY CLINICAL SAP TECHNICAL DEVELOPER AND PHYSICIAN/PROVIDER WITH ANY CHANGE IN CONDITION. [code = SKILLED NURSE TO PERFORM ENVIRONMENTAL SAFETY RISK ASSESSMENT AND FALL RISK ASSESSMENT AND PROVIDE INSTRUCTION TO IMPLEMENT ENVIRONMENTAL SAFETY AND FALL PREVENTION STRATEGIES THROUGHOUT THE CERTIFICATION PERIOD. SKILLED NURSE WILL MAINTAIN SITUATIONAL AWARENESS AND WILL NOTIFY CLINICAL SAP TECHNICAL DEVELOPER AND PHYSICIAN/PROVIDER WITH ANY CHANGE IN CONDITION.] [...] CARE WILL BE ESTABLISHED THAT MEETS PATIENT'S LONG TERM NEEDS AND INCLUDES PATIENT GOAL FOR HOME [...] EQUAL STRENGTH. PATIENT WC BOUND. LIVES IN [facility]. LS CLEAR ON RA. DENIES CP/PALPITATIONS/SOB/DIZZINESS. DENIES [...] 00:00:00 2025-08-20 00:00:00 Outpatient NEW ADMISSION SAULDILIP [facility] [id number] 14.81
--- OUTSIDE RECORDS SUMMARY | 2025-08-19 19:00 | XMS_ITS | Clinical Summary ---
Author Organization Unknown Care Team Providers Care Machine Room Engineer Name Role Phone LOKI MILES MD, MICHA Unavailable Unavailable SAUL URIAS, DILIP Unavailable Unavailable Payers Payer Name Policy Type Policy Number Effective Date Expira tion Date MEDICARE - NGS [place] - [place] [id number] Problems Condition Name Condition Details Condition Category [...] MAINTAIN SITUATIONAL AWARENESS AND WILL NOTIFY CLINICAL TRACK PRODUCTION ENGINEER AND PHYSICIAN/PROVIDER WITH ANY CHANGE IN CONDITION. [code = SKILLED NURSE TO PERFORM ENVIRONMENTAL SAFETY RISK ASSESSMENT AND FALL RISK ASSESSMENT AND PROVIDE INSTRUCTION TO IMPLEMENT ENVIRONMENTAL SAFETY AND FALL PREVENTION STRATEGIES THROUGHOUT THE CERTIFICATION PERIOD. SKILLED NURSE WILL MAINTAIN SITUATIONAL AWARENESS AND WILL NOTIFY CLINICAL TRACK PRODUCTION ENGINEER AND PHYSICIAN/PROVIDER WITH ANY CHANGE IN [...] CARE WILL BE ESTABLISHED THAT MEETS PATIENT'S INTERMEDIATE NEEDS AND INCLUDES PATIENT GOAL FOR HOME [...] EQUAL STRENGTH. PATIENT WC BOUND. LIVES IN [place]. LS CLEAR ON RA. DENIES CP/PALPITATIONS/SOB/DIZZINESS. DENIES [...] 00:00:00 2025-08-20 00:00:00 Outpatient NEW ADMISSION SAULDILIP [facility] [id number] 14.81
--- OUTSIDE RECORDS SUMMARY | 2025-08-19 19:00 | XMS_ITS | Clinical Summary ---
Author Organization Unknown Care Team Providers Care Captain Of Guards Name Role Phone LOKI MILES MD, MICHA Unavailable Unavailable SAUL URIAS, DILIP Unavailable Unavailable Payers Payer Name Policy Type Policy Number Effective Date Expira tion Date MEDICARE - NGS [place] - [place] [id number] Problems Condition Name Condition Details Condition Category [...] MAINTAIN SITUATIONAL AWARENESS AND WILL NOTIFY CLINICAL FUELS ENGINEER AND PHYSICIAN/PROVIDER WITH ANY CHANGE IN CONDITION. [code = SKILLED NURSE TO PERFORM ENVIRONMENTAL SAFETY RISK ASSESSMENT AND FALL RISK ASSESSMENT AND PROVIDE INSTRUCTION TO IMPLEMENT ENVIRONMENTAL SAFETY AND FALL PREVENTION STRATEGIES THROUGHOUT THE CERTIFICATION PERIOD. SKILLED NURSE WILL MAINTAIN SITUATIONAL AWARENESS AND WILL NOTIFY CLINICAL FUELS ENGINEER AND PHYSICIAN/PROVIDER WITH ANY CHANGE IN [...] EQUAL STRENGTH. PATIENT WC BOUND. LIVES IN [facility]. LS CLEAR ON RA. DENIES CP/PALPITATIONS/SOB/DIZZINESS. DENIES [...] 00:00:00 2025-08-20 00:00:00 Outpatient NEW ADMISSION SAULDILIP [facility] [id number] 14.81
--- OUTSIDE RECORDS SUMMARY | 2025-08-19 19:00 | XMS_ITS | Clinical Summary ---
Author Organization Unknown Care Team Providers Care Police Reserves Commander Name Role Phone LOKI MILES MD, MICHA Unavailable Unavailable SAUL URIAS, DILIP Unavailable Unavailable Payers Payer Name Policy Type Policy Number Effective Date Expira tion Date MEDICARE - NGS [place] - [place] [id number] Problems Condition Name Condition Details Condition Category [...] MAINTAIN SITUATIONAL AWARENESS AND WILL NOTIFY CLINICAL FAMILY REUNIFICATION SPECIALIST AND PHYSICIAN/PROVIDER WITH ANY CHANGE IN CONDITION. [code = SKILLED NURSE TO PERFORM ENVIRONMENTAL SAFETY RISK ASSESSMENT AND FALL RISK ASSESSMENT AND PROVIDE INSTRUCTION TO IMPLEMENT ENVIRONMENTAL SAFETY AND FALL PREVENTION STRATEGIES THROUGHOUT THE CERTIFICATION PERIOD. SKILLED NURSE WILL MAINTAIN SITUATIONAL AWARENESS AND WILL NOTIFY CLINICAL FAMILY REUNIFICATION SPECIALIST AND PHYSICIAN/PROVIDER WITH ANY CHANGE IN CONDITION.] [...] CARE WILL BE ESTABLISHED THAT MEETS PATIENT'S [facility] NEEDS AND INCLUDES PATIENT GOAL FOR HOME [...] EQUAL STRENGTH. PATIENT WC BOUND. LIVES IN SENIOR LIVING. LS CLEAR ON RA. DENIES CP/PALPITATIONS/SOB/DIZZINESS. DENIES [...] 2025-08-20 00:00:00 Outpatient NEW ADMISSION [facility]ILIP [facility] [id number] 14.81
--- OUTSIDE RECORDS SUMMARY | 2025-08-19 19:00 | XMS_ITS | Clinical Summary ---
Author Organization Unknown Care Team Providers Care Solid Propellant Processor Name Role Phone LOKI MILES MD, MICHA Unavailable Unavailable SALU URIAS, DILIP Unavailable Unavailable Payers Payer Name Policy Type Policy Number Effective Date Expira tion Date MEDICARE - NGS [place] - [place] [id number] Problems Condition Name Condition Details Condition Category [...] MAINTAIN SITUATIONAL AWARENESS AND WILL NOTIFY CLINICAL BRIDGE WORKER APPRENTICE AND PHYSICIAN/PROVIDER WITH ANY CHANGE IN CONDITION. [code = SKILLED NURSE TO PERFORM ENVIRONMENTAL SAFETY RISK ASSESSMENT AND FALL RISK ASSESSMENT AND PROVIDE INSTRUCTION TO IMPLEMENT ENVIRONMENTAL SAFETY AND FALL PREVENTION STRATEGIES THROUGHOUT THE CERTIFICATION PERIOD. SKILLED NURSE WILL MAINTAIN SITUATIONAL AWARENESS AND WILL NOTIFY CLINICAL BRIDGE WORKER APPRENTICE AND PHYSICIAN/PROVIDER WITH ANY CHANGE IN CONDITION.] [...] CARE WILL BE ESTABLISHED THAT MEETS PATIENT'S ALF NEEDS AND INCLUDES PATIENT GOAL FOR HOME [...] 2025-08-20 00:00:00 Outpatient NEW ADMISSION [facility]ULDILIP [facility] [id number] 14.81
--- OUTSIDE RECORDS SUMMARY | 2025-08-19 19:00 | XMS_ITS | Clinical Summary ---
Author Organization Unknown Care Team Providers Care Overlock Elastic Attacher Name Role Phone LOKI MILES MD, MICHA Unavailable Unavailable SAUL URIAS, DILIP Unavailable Unavailable Payers Payer Name Policy Type Policy Number Effective Date Expira tion Date MEDICARE - NGS [place] - [place] [id number] Problems Condition Name Condition Details Condition Category [...] MAINTAIN SITUATIONAL AWARENESS AND WILL NOTIFY CLINICAL HUNTER AND PHYSICIAN/PROVIDER WITH ANY CHANGE IN CONDITION. [code = SKILLED NURSE TO PERFORM ENVIRONMENTAL SAFETY RISK ASSESSMENT AND FALL RISK ASSESSMENT AND PROVIDE INSTRUCTION TO IMPLEMENT ENVIRONMENTAL SAFETY AND FALL PREVENTION STRATEGIES THROUGHOUT THE CERTIFICATION PERIOD. SKILLED NURSE WILL MAINTAIN SITUATIONAL AWARENESS AND WILL NOTIFY CLINICAL HUNTER AND PHYSICIAN/PROVIDER WITH ANY CHANGE IN CONDITION.] [...] CARE WILL BE ESTABLISHED THAT MEETS PATIENT'S [facility] NEEDS AND INCLUDES PATIENT GOAL FOR HOME [...] STRENGTH. PATIENT WC BOUND. LIVES IN [facility]. LS CLEAR ON RA. DENIES CP/PALPITATIONS/SOB/DIZZINESS. DENIES [...] 00:00:00 2025-08-20 00:00:00 Outpatient NEW ADMISSION [facility]DILIP [facility] [id number] 14.81
--- OUTSIDE RECORDS SUMMARY | 2025-08-19 19:00 | XMS_ITS | Clinical Summary ---
Author Organization Unknown Care Team Providers Care Construction Project Administrator Name Role Phone LOKI MILES MD, MICHA Unavailable Unavailable SAUL URAIS, DILIP Unavailable Unavailable Payers Payer Name Policy Type Policy Number Effective Date Expira tion Date MEDICARE - NGS [place] - PD [id number] Problems Condition Name Condition Details Condition Category [...] MAINTAIN SITUATIONAL AWARENESS AND WILL NOTIFY CLINICAL LABOR ECONOMIST AND PHYSICIAN/PROVIDER WITH ANY CHANGE IN CONDITION. [code = SKILLED NURSE TO PERFORM ENVIRONMENTAL SAFETY RISK ASSESSMENT AND FALL RISK ASSESSMENT AND PROVIDE INSTRUCTION TO IMPLEMENT ENVIRONMENTAL SAFETY AND FALL PREVENTION STRATEGIES THROUGHOUT THE CERTIFICATION PERIOD. SKILLED NURSE WILL MAINTAIN SITUATIONAL AWARENESS AND WILL NOTIFY CLINICAL LABOR ECONOMIST AND PHYSICIAN/PROVIDER WITH ANY CHANGE IN CONDITION.] [...] EQUAL STRENGTH. PATIENT WC BOUND. [place] LS CLEAR ON RA. DENIES CP/PALPITATIONS/SOB/DIZZINESS. DENIES [...] 2025-08-20 00:00:00 Outpatient NEW ADMISSION [facility]ILIP [facility] [id number] 14.81
--- OUTSIDE RECORDS SUMMARY | 2025-08-19 19:00 | XMS_ITS | Clinical Summary ---
Author Organization Unknown Care Team Providers Care Director Of Rehabilitation Name Role Phone LOKI MILES MD, MICHA Unavailable Unavailable SAUL URIAS, DILIP Unavailable Unavailable Payers Payer Name Policy Type Policy Number Effective Date Expira tion Date MEDICARE - NGS [place] - [place] [id number] Problems Condition Name Condition Details Condition Category [...] MAINTAIN SITUATIONAL AWARENESS AND WILL NOTIFY CLINICAL HEAD AUTOMATIC SAWYER AND PHYSICIAN/PROVIDER WITH ANY CHANGE IN CONDITION. [code = SKILLED NURSE TO PERFORM ENVIRONMENTAL SAFETY RISK ASSESSMENT AND FALL RISK ASSESSMENT AND PROVIDE INSTRUCTION TO IMPLEMENT ENVIRONMENTAL SAFETY AND FALL PREVENTION STRATEGIES THROUGHOUT THE CERTIFICATION PERIOD. SKILLED NURSE WILL MAINTAIN SITUATIONAL AWARENESS AND WILL NOTIFY CLINICAL HEAD AUTOMATIC SAWYER AND PHYSICIAN/PROVIDER WITH ANY CHANGE IN CONDITION.] [...] EQUAL STRENGTH. PATIENT WC BOUND. LIVES IN NURSING HOME. LS CLEAR ON RA. DENIES CP/PALPITATIONS/SOB/DIZZINESS. DENIES [...] Outpatient NEW ADMISSION [facility]DILIP [facility] [id number] 14.81
--- OUTSIDE RECORDS SUMMARY | 2025-08-19 19:00 | XMS_ITS | Clinical Summary ---
Author Organization Unknown Care Team Providers Care Rn Home Health Name Role Phone LOKI MILES MD, MICHA Unavailable Unavailable SAUL URIAS, DILIP Unavailable Unavailable Payers Payer Name Policy Type Policy Number Effective Date Expira tion Date MEDICARE - NGS [place] - [place] [id number] Problems Condition Name Condition Details Condition Category [...] MAINTAIN SITUATIONAL AWARENESS AND WILL NOTIFY CLINICAL CASINO GAMING INSPECTOR AND PHYSICIAN/PROVIDER WITH ANY CHANGE IN CONDITION. [code = SKILLED NURSE TO PERFORM ENVIRONMENTAL SAFETY RISK ASSESSMENT AND FALL RISK ASSESSMENT AND PROVIDE INSTRUCTION TO IMPLEMENT ENVIRONMENTAL SAFETY AND FALL PREVENTION STRATEGIES THROUGHOUT THE CERTIFICATION PERIOD. SKILLED NURSE WILL MAINTAIN SITUATIONAL AWARENESS AND WILL NOTIFY CLINICAL CASINO GAMING INSPECTOR AND PHYSICIAN/PROVIDER WITH ANY CHANGE IN CONDITION.] [...] CARE WILL BE ESTABLISHED THAT MEETS PATIENT'S [facility] NEEDS AND INCLUDES PATIENT GOAL FOR HOME [...] EQUAL STRENGTH. PATIENT WC BOUND. LIVES IN [facility]. LS CLEAR ON RA. DENIES CP/PALPITATIONS/SOB/DIZZINESS. DENIES [...] 00:00:00 Outpatient NEW ADMISSION SA[facility]DILIP [facility] [id number] 14.81
--- OUTSIDE RECORDS SUMMARY | 2025-08-19 19:00 | XMS_ITS | Clinical Summary ---
Author Organization Unknown Care Team Providers Care Cataloging Assistant Name Role Phone LOKI MILES MD, MICHA Unavailable Unavailable SAUL URIAS, DILIP Unavailable Unavailable Payers Payer Name Policy Type Policy Number Effective Date Expira tion Date MEDICARE - NGS [place] - [place] [id number] Problems Condition Name Condition Details Condition Category [...] MAINTAIN SITUATIONAL AWARENESS AND WILL NOTIFY CLINICAL ETCHER ENAMELING AND PHYSICIAN/PROVIDER WITH ANY CHANGE IN CONDITION. [code = SKILLED NURSE TO PERFORM ENVIRONMENTAL SAFETY RISK ASSESSMENT AND FALL RISK ASSESSMENT AND PROVIDE INSTRUCTION TO IMPLEMENT ENVIRONMENTAL SAFETY AND FALL PREVENTION STRATEGIES THROUGHOUT THE CERTIFICATION PERIOD. SKILLED NURSE WILL MAINTAIN SITUATIONAL AWARENESS AND WILL NOTIFY CLINICAL ETCHER ENAMELING AND PHYSICIAN/PROVIDER WITH ANY CHANGE IN CONDITION.] [...] EQUAL STRENGTH. PATIENT WC BOUND. LIVES IN [place]. LS CLEAR ON RA. DENIES CP/PALPITATIONS/SOB/DIZZINESS. DENIES [...] 00:00:00 2025-08-20 00:00:00 Outpatient NEW ADMISSION [facility]DILIP [facility] [id number] 14.81
--- OUTSIDE RECORDS SUMMARY | 2025-08-19 19:00 | XMS_ITS | Clinical Summary ---
Author Organization Unknown Care Team Providers Care Automatic Grinder Operator Name Role Phone LOKI MILES MD, MICHA Unavailable Unavailable SAUL URIAS, DILIP Unavailable Unavailable Payers Payer Name Policy Type Policy Number Effective Date Expira tion Date MEDICARE - NGS [place] - [place] [id number] Problems Condition Name Condition Details Condition Category [...] MAINTAIN SITUATIONAL AWARENESS AND WILL NOTIFY CLINICAL COLOR SHOP HELPER AND PHYSICIAN/PROVIDER WITH ANY CHANGE IN CONDITION. [code = SKILLED NURSE TO PERFORM ENVIRONMENTAL SAFETY RISK ASSESSMENT AND FALL RISK ASSESSMENT AND PROVIDE INSTRUCTION TO IMPLEMENT ENVIRONMENTAL SAFETY AND FALL PREVENTION STRATEGIES THROUGHOUT THE CERTIFICATION PERIOD. SKILLED NURSE WILL MAINTAIN SITUATIONAL AWARENESS AND WILL NOTIFY CLINICAL COLOR SHOP HELPER AND PHYSICIAN/PROVIDER WITH ANY CHANGE IN CONDITION.] [...] EQUAL STRENGTH. PATIENT WC BOUND[place] CLEAR ON RA. DENIES CP/PALPITATIONS/SOB/DIZZINESS. DENIES [...] 00:00:00 Outpatient NEW ADMISSION [facility]DILIP [facility] [id number] 14.81
--- OUTSIDE RECORDS SUMMARY | 2025-08-19 19:00 | XMS_ITS | Clinical Summary ---
Author Organization Unknown Care Team Providers Care Fluid Jet Cutter Operator Name Role Phone LOKI MILES MD, MICHA Unavailable Unavailable SAUL URIAS, DILIP Unavailable Unavailable Payers Payer Name Policy Type Policy Number Effective Date Expira tion Date MEDICARE - NGS [place] - [place] [id number] Problems Condition Name Condition Details Condition Category [...] MAINTAIN SITUATIONAL AWARENESS AND WILL NOTIFY CLINICAL SOLDER LEVELER PRINTED CIRCUIT BOARDS AND PHYSICIAN/PROVIDER WITH ANY CHANGE IN CONDITION. [code = SKILLED NURSE TO PERFORM ENVIRONMENTAL SAFETY RISK ASSESSMENT AND FALL RISK ASSESSMENT AND PROVIDE INSTRUCTION TO IMPLEMENT ENVIRONMENTAL SAFETY AND FALL PREVENTION STRATEGIES THROUGHOUT THE CERTIFICATION PERIOD. SKILLED NURSE WILL MAINTAIN SITUATIONAL AWARENESS AND WILL NOTIFY CLINICAL SOLDER LEVELER PRINTED CIRCUIT BOARDS AND PHYSICIAN/PROVIDER WITH ANY CHANGE IN CONDITION.] [...] CARE WILL BE ESTABLISHED THAT MEETS PATIENT'S GROUP HOME NEEDS AND INCLUDES PATIENT GOAL FOR [...] EQUAL STRENGTH. PATIENT WC BOUND. LIVES IN [facility]. LS CLEAR ON RA. DENIES CP/PALPITATIONS/SOB/DIZZINESS. DENIES [...] 2025-08-20 00:00:00 Outpatient NEW ADMISSION [facility]DILIP [facility] [id number] 14.81
--- OUTSIDE RECORDS SUMMARY | 2025-08-19 19:00 | XMS_ITS | Clinical Summary ---
Author Organization Unknown Care Team Providers Care Parachute Marker Name Role Phone LOKI MILES MD, MICHA Unavailable Unavailable SAUL URIAS, DILIP Unavailable Unavailable Payers Payer Name Policy Type Policy Number Effective Date Expira tion Date MEDICARE - NGS [place] - PD [id number] Problems Condition Name Condition Details Condition Category [...] MAINTAIN SITUATIONAL AWARENESS AND WILL NOTIFY CLINICAL MANAGER MEDIA RELATIONS AND PHYSICIAN/PROVIDER WITH ANY CHANGE IN CONDITION. [code = SKILLED NURSE TO PERFORM ENVIRONMENTAL SAFETY RISK ASSESSMENT AND FALL RISK ASSESSMENT AND PROVIDE INSTRUCTION TO IMPLEMENT ENVIRONMENTAL SAFETY AND FALL PREVENTION STRATEGIES THROUGHOUT THE CERTIFICATION PERIOD. SKILLED NURSE WILL MAINTAIN SITUATIONAL AWARENESS AND WILL NOTIFY CLINICAL MANAGER MEDIA RELATIONS AND PHYSICIAN/PROVIDER WITH ANY CHANGE IN CONDITION.] [...] ADMISSION [facility]ULDILIP [facility] [id number] 14.81
--- OUTSIDE RECORDS SUMMARY | 2025-08-19 19:00 | XMS_ITS | Clinical Summary ---
Author Organization Unknown Care Team Providers Care Gang Supervisor Name Role Phone LOKI MILES MD, MICHA Unavailable Unavailable SAUL URIAS, DILIP Unavailable Unavailable Payers Payer Name Policy Type Policy Number Effective Date Expira tion Date MEDICARE - NGS [place] - [place] [id number] Problems Condition Name Condition Details Condition Category [...] MAINTAIN SITUATIONAL AWARENESS AND WILL NOTIFY CLINICAL EQUIPMENT MAINT TECH AND PHYSICIAN/PROVIDER WITH ANY CHANGE IN CONDITION. [code = SKILLED NURSE TO PERFORM ENVIRONMENTAL SAFETY RISK ASSESSMENT AND FALL RISK ASSESSMENT AND PROVIDE INSTRUCTION TO IMPLEMENT ENVIRONMENTAL SAFETY AND FALL PREVENTION STRATEGIES THROUGHOUT THE CERTIFICATION PERIOD. SKILLED NURSE WILL MAINTAIN SITUATIONAL AWARENESS AND WILL NOTIFY CLINICAL EQUIPMENT MAINT TECH AND PHYSICIAN/PROVIDER WITH ANY CHANGE IN CONDITION.] [...] CARE WILL BE ESTABLISHED THAT MEETS PATIENT'S [place] NEEDS AND INCLUDES PATIENT GOAL FOR HOME [...] 2025-08-20 00:00:00 Outpatient NEW ADMISSION [facility]ULDILIP [facility] [id number] 14.81
--- OUTSIDE RECORDS SUMMARY | 2025-08-19 19:00 | XMS_ITS | Clinical Summary ---
Author Organization Unknown Care Team Providers Care Explosives Engineer Name Role Phone LOKI MILES MD, MICHA Unavailable Unavailable SAUL URIAS, DILIP Unavailable Unavailable Payers Payer Name Policy Type Policy Number Effective Date Expira tion Date MEDICARE - NGS [place] - PD [id number] Problems Condition Name Condition Details Condition Category [...] MAINTAIN SITUATIONAL AWARENESS AND WILL NOTIFY CLINICAL INSOLE TACKER AND PHYSICIAN/PROVIDER WITH ANY CHANGE IN CONDITION. [code = SKILLED NURSE TO PERFORM ENVIRONMENTAL SAFETY RISK ASSESSMENT AND FALL RISK ASSESSMENT AND PROVIDE INSTRUCTION TO IMPLEMENT ENVIRONMENTAL SAFETY AND FALL PREVENTION STRATEGIES THROUGHOUT THE CERTIFICATION PERIOD. SKILLED NURSE WILL MAINTAIN SITUATIONAL AWARENESS AND WILL NOTIFY CLINICAL INSOLE TACKER AND PHYSICIAN/PROVIDER WITH ANY CHANGE IN CONDITION.] [...] CARE WILL BE ESTABLISHED THAT MEETS PATIENT'S [facility] NEEDS AND INCLUDES PATIENT GOAL FOR HOME [...] 00:00:00 Outpatient NEW ADMISSION SAULDILIP [facility] [id number] 14.81
--- OUTSIDE RECORDS SUMMARY | 2025-08-19 19:00 | XMS_ITS | Clinical Summary ---
Author Organization Unknown Care Team Providers Care Manager Alliance Name Role Phone LOKI MILES MD, MICHA Unavailable Unavailable SAUL URIAS, DILIP Unavailable Unavailable Payers Payer Name Policy Type Policy Number Effective Date Expira tion Date MEDICARE - NGS [place] - PD [id number] Problems Condition Name Condition Details Condition Category [...] PER FEDERAL REGULATIONS. THIS INCLUDES VISITS FOR JAMIAL, RECERT, SCIC, AND/OR DC. [code = SKILLED [...] MAINTAIN SITUATIONAL AWARENESS AND WILL NOTIFY CLINICAL TURBINE ROOM ATTENDANT AND PHYSICIAN/PROVIDER WITH ANY CHANGE IN CONDITION. [code = SKILLED NURSE TO PERFORM ENVIRONMENTAL SAFETY RISK ASSESSMENT AND FALL RISK ASSESSMENT AND PROVIDE INSTRUCTION TO IMPLEMENT ENVIRONMENTAL SAFETY AND FALL PREVENTION STRATEGIES THROUGHOUT THE CERTIFICATION PERIOD. SKILLED NURSE WILL MAINTAIN SITUATIONAL AWARENESS AND WILL NOTIFY CLINICAL TURBINE ROOM ATTENDANT AND PHYSICIAN/PROVIDER WITH ANY CHANGE IN CONDITION.] [...] EQUAL STRENGTH. PATIENT WC BOUND. LIVES IN [place]. LS CLEAR ON RA. DENIES CP/PALPITATIONS/SOB/DIZZINESS. DENIES [...] 00:00:00 2025-08-20 00:00:00 Outpatient NEW ADMISSION SAULDILIP [facility] [id number] 14.81
--- OUTSIDE RECORDS SUMMARY | 2025-08-19 19:00 | XMS_ITS | Clinical Summary ---
Author Organization Unknown Care Team Providers Care Radio Machinist Name Role Phone LOKI MILES MD, MICHA Unavailable Unavailable SAUL URIAS, DILIP Unavailable Unavailable Payers Payer Name Policy Type Policy Number Effective Date Expira tion Date MEDICARE - NGS [place] - [place] [id number] Problems Condition Name Condition Details Condition Category [...] MAINTAIN SITUATIONAL AWARENESS AND WILL NOTIFY CLINICAL COACH MECHANIC AND PHYSICIAN/PROVIDER WITH ANY CHANGE IN CONDITION. [code = SKILLED NURSE TO PERFORM ENVIRONMENTAL SAFETY RISK ASSESSMENT AND FALL RISK ASSESSMENT AND PROVIDE INSTRUCTION TO IMPLEMENT ENVIRONMENTAL SAFETY AND FALL PREVENTION STRATEGIES THROUGHOUT THE CERTIFICATION PERIOD. SKILLED NURSE WILL MAINTAIN SITUATIONAL AWARENESS AND WILL NOTIFY CLINICAL COACH MECHANIC AND PHYSICIAN/PROVIDER WITH ANY CHANGE IN CONDITION.] [...] 00:00:00 2025-08-20 00:00:00 Outpatient NEW ADMISSION SAULDILIP [facility] [id number] 14.81
--- OUTSIDE RECORDS SUMMARY | 2025-08-19 19:00 | XMS_ITS | Clinical Summary ---
Author Organization Unknown Care Team Providers Care Fourdrinier Machine Operator Name Role Phone LOKI MILES MD, MICHA Unavailable Unavailable SAUL URIAS, DILIP Unavailable Unavailable Payers Payer Name Policy Type Policy Number Effective Date Expira tion Date MEDICARE - NGS [place] - PD [id number] Problems Condition Name Condition Details Condition Category [...] SITUATIONAL AWARENESS AND WILL NOTIFY CLINICAL CAN SOLDERER AND PHYSICIAN/PROVIDER WITH ANY CHANGE IN CONDITION. [code = SKILLED NURSE TO PERFORM ENVIRONMENTAL SAFETY RISK ASSESSMENT AND FALL RISK ASSESSMENT AND PROVIDE INSTRUCTION TO IMPLEMENT ENVIRONMENTAL SAFETY AND FALL PREVENTION STRATEGIES THROUGHOUT THE CERTIFICATION PERIOD. SKILLED NURSE WILL MAINTAIN SITUATIONAL AWARENESS AND WILL NOTIFY CLINICAL CAN SOLDERER AND PHYSICIAN/PROVIDER WITH ANY CHANGE IN CONDITION.] [...] CARE WILL BE ESTABLISHED THAT MEETS PATIENT'S DETENTION NEEDS AND INCLUDES PATIENT GOAL FOR HOME [...] 00:00:00 2025-08-20 00:00:00 Outpatient NEW ADMISSION SAULDILIP [facility] [id number] 14.81
--- OUTSIDE RECORDS SUMMARY | 2025-08-19 19:00 | XMS_ITS | Clinical Summary ---
Author Organization Unknown Care Team Providers Care Director Oracle Name Role Phone LOKI MILES MD, MICHA Unavailable Unavailable SAUL URIAS, DILIP Unavailable Unavailable Payers Payer Name Policy Type Policy Number Effective Date Expira tion Date MEDICARE - NGS [place] - [place] [id number] Problems Condition Name Condition Details Condition Category [...] MAINTAIN SITUATIONAL AWARENESS AND WILL NOTIFY CLINICAL SPRINKLER IRRIGATION EQUIPMENT MECHANIC AND PHYSICIAN/PROVIDER WITH ANY CHANGE IN CONDITION. [code = SKILLED NURSE TO PERFORM ENVIRONMENTAL SAFETY RISK ASSESSMENT AND FALL RISK ASSESSMENT AND PROVIDE INSTRUCTION TO IMPLEMENT ENVIRONMENTAL SAFETY AND FALL PREVENTION STRATEGIES THROUGHOUT THE CERTIFICATION PERIOD. SKILLED NURSE WILL MAINTAIN SITUATIONAL AWARENESS AND WILL NOTIFY CLINICAL SPRINKLER IRRIGATION EQUIPMENT MECHANIC AND PHYSICIAN/PROVIDER WITH ANY CHANGE IN [...] CARE WILL BE ESTABLISHED THAT MEETS PATIENT'S SENIOR CARE NEEDS AND INCLUDES PATIENT GOAL FOR HOME [...] 00:00:00 2025-08-20 00:00:00 Outpatient NEW ADMISSION SAULDILIP [facility] [id number] 14.81
--- OUTSIDE RECORDS SUMMARY | 2025-08-19 19:00 | XMS_ITS | Clinical Summary ---
Author Organization Unknown Care Team Providers Care Meat Market Manager Name Role Phone LOKI MILES MD, MICHA Unavailable Unavailable SAUL URIAS, DILIP Unavailable Unavailable Payers Payer Name Policy Type Policy Number Effective Date Expira tion Date MEDICARE - NGS [place] - [place] [id number] Problems Condition Name Condition Details Condition Category [...] MAINTAIN SITUATIONAL AWARENESS AND WILL NOTIFY CLINICAL FELLER BUNCHER OPERATOR AND PHYSICIAN/PROVIDER WITH ANY CHANGE IN CONDITION. [code = SKILLED NURSE TO PERFORM ENVIRONMENTAL SAFETY RISK ASSESSMENT AND FALL RISK ASSESSMENT AND PROVIDE INSTRUCTION TO IMPLEMENT ENVIRONMENTAL SAFETY AND FALL PREVENTION STRATEGIES THROUGHOUT THE CERTIFICATION PERIOD. SKILLED NURSE WILL MAINTAIN SITUATIONAL AWARENESS AND WILL NOTIFY CLINICAL FELLER BUNCHER OPERATOR AND PHYSICIAN/PROVIDER WITH ANY CHANGE IN [...] 00:00:00 Outpatient NEW ADMISSION SAULDILIP [facility] [id number] 14.81
--- OUTSIDE RECORDS SUMMARY | 2025-08-19 19:00 | XMS_ITS | Clinical Summary ---
Author Organization Unknown Care Team Providers Care Missile Technician Name Role Phone LOKI MILES MD, MICHA Unavailable Unavailable SAUL URIAS, DILIP Unavailable Unavailable Payers Payer Name Policy Type Policy Number Effective Date Expira tion Date MEDICARE - NGS [place] - PD [id number] Problems Condition Name Condition Details Condition Category [...] MAINTAIN SITUATIONAL AWARENESS AND WILL NOTIFY CLINICAL INSURANCE ADVISER AND PHYSICIAN/PROVIDER WITH ANY CHANGE IN CONDITION. [code = SKILLED NURSE TO PERFORM ENVIRONMENTAL SAFETY RISK ASSESSMENT AND FALL RISK ASSESSMENT AND PROVIDE INSTRUCTION TO IMPLEMENT ENVIRONMENTAL SAFETY AND FALL PREVENTION STRATEGIES THROUGHOUT THE CERTIFICATION PERIOD. SKILLED NURSE WILL MAINTAIN SITUATIONAL AWARENESS AND WILL NOTIFY CLINICAL INSURANCE ADVISER AND PHYSICIAN/PROVIDER WITH ANY CHANGE IN CONDITION.] [...] CARE WILL BE ESTABLISHED THAT MEETS PATIENT'S CUSTODIAL NEEDS AND INCLUDES PATIENT GOAL FOR HOME [...] EQUAL STRENGTH. PATIENT WC BOUND. LIVES IN [place]. LS CLEAR ON RA. DENIES CP/PALPITATIONS/SOB/DIZZINESS. DENIES [...] NEW ADMISSION SAULDILIP [facility] [id number] 14.81
--- OUTSIDE RECORDS SUMMARY | 2025-08-19 19:00 | XMS_ITS | Clinical Summary ---
Author Organization Unknown Care Team Providers Care Stove Bottom Worker Name Role Phone LOKI MILES MD, MICHA Unavailable Unavailable SAUL URIAS, DILIP Unavailable Unavailable Payers Payer Name Policy Type Policy Number Effective Date Expira tion Date MEDICARE - NGS [place] - PD [id number] Problems Condition Name Condition Details Condition Category [...] MAINTAIN SITUATIONAL AWARENESS AND WILL NOTIFY CLINICAL OPTICAL SYSTEMS ENGINEER AND PHYSICIAN/PROVIDER WITH ANY CHANGE IN CONDITION. [code = SKILLED NURSE TO PERFORM ENVIRONMENTAL SAFETY RISK ASSESSMENT AND FALL RISK ASSESSMENT AND PROVIDE INSTRUCTION TO IMPLEMENT ENVIRONMENTAL SAFETY AND FALL PREVENTION STRATEGIES THROUGHOUT THE CERTIFICATION PERIOD. SKILLED NURSE WILL MAINTAIN SITUATIONAL AWARENESS AND WILL NOTIFY CLINICAL OPTICAL SYSTEMS ENGINEER AND PHYSICIAN/PROVIDER WITH ANY CHANGE IN [...] CARE WILL BE ESTABLISHED THAT MEETS PATIENT'S USP NEEDS AND INCLUDES PATIENT GOAL FOR HOME [...] EQUAL STRENGTH. PATIENT WC BOUND. LIVES IN [place]. LS CLEAR ON RA. DENIES CP/PALPITATIONS/SOB/DIZZINESS. DENIES [...] Outpatient NEW ADMISSION [facility]DILIP [facility] [id number] 14.81
--- OUTSIDE RECORDS SUMMARY | 2025-08-19 19:00 | XMS_ITS | Clinical Summary ---
Author Organization Unknown Care Team Providers Care Guinea Pig Breeder Name Role Phone LOKI MILES MD, MICHA Unavailable Unavailable SAUL URIAS, DILIP Unavailable Unavailable Payers Payer Name Policy Type Policy Number Effective Date Expira tion Date MEDICARE - NGS [place] - PD [id number] Problems Condition Name Condition Details Condition Category [...] MAINTAIN SITUATIONAL AWARENESS AND WILL NOTIFY CLINICAL FUNERAL LIMOUSINE DRIVER AND PHYSICIAN/PROVIDER WITH ANY CHANGE IN CONDITION. [code = SKILLED NURSE TO PERFORM ENVIRONMENTAL SAFETY RISK ASSESSMENT AND FALL RISK ASSESSMENT AND PROVIDE INSTRUCTION TO IMPLEMENT ENVIRONMENTAL SAFETY AND FALL PREVENTION STRATEGIES THROUGHOUT THE CERTIFICATION PERIOD. SKILLED NURSE WILL MAINTAIN SITUATIONAL AWARENESS AND WILL NOTIFY CLINICAL FUNERAL LIMOUSINE DRIVER AND PHYSICIAN/PROVIDER WITH ANY CHANGE IN CONDITION.] [...] 00:00:00 2025-08-20 00:00:00 Outpatient NEW ADMISSION SAULDIL[facility] [id number] 14.81
--- OUTSIDE RECORDS SUMMARY | 2025-08-19 19:00 | XMS_ITS | Clinical Summary ---
Author Organization Unknown Care Team Providers Care Song Lyricist Name Role Phone LOKI MILES MD, MICHA Unavailable Unavailable SAUL URIAS, DILIP Unavailable Unavailable Payers Payer Name Policy Type Policy Number Effective Date Expira tion Date MEDICARE - NGS [place] - PD [id number] Problems Condition Name Condition Details Condition Category [...] MAINTAIN SITUATIONAL AWARENESS AND WILL NOTIFY CLINICAL FIRE SUPPORT MAN AND PHYSICIAN/PROVIDER WITH ANY CHANGE IN CONDITION. [code = SKILLED NURSE TO PERFORM ENVIRONMENTAL SAFETY RISK ASSESSMENT AND FALL RISK ASSESSMENT AND PROVIDE INSTRUCTION TO IMPLEMENT ENVIRONMENTAL SAFETY AND FALL PREVENTION STRATEGIES THROUGHOUT THE CERTIFICATION PERIOD. SKILLED NURSE WILL MAINTAIN SITUATIONAL AWARENESS AND WILL NOTIFY CLINICAL FIRE SUPPORT MAN AND PHYSICIAN/PROVIDER WITH ANY CHANGE IN CONDITION.] [...] EQUAL STRENGTH. PATIENT WC BOUND. LIVES IN [facility]. LS CLEAR ON RA. DENIES CP/PALPITATIONS/SOB/DIZZINESS. DENIES [...] 00:00:00 2025-08-20 00:00:00 Outpatient NEW ADMISSION [facility]ILIP [facility] [id number] 14.81
--- OUTSIDE RECORDS SUMMARY | 2025-08-19 19:00 | XMS_ITS | Clinical Summary ---
Author Organization Unknown Care Team Providers Care Insurance Risk Surveyor Name Role Phone LOKI MILES MD, MICHA Unavailable Unavailable SAUL URIAS, DILIP Unavailable Unavailable Payers Payer Name Policy Type Policy Number Effective Date Expira tion Date MEDICARE - NGS [place] - PD [id number] Problems Condition Name Condition Details Condition Category [...] OF ANY CONCERNS.] Future Scheduled Test PATIENT LIANEZ S A RISK OF HOSPITALIZATION AND ED [...] MAINTAIN SITUATIONAL AWARENESS AND WILL NOTIFY CLINICAL APPLICATION SUPPORT AND PHYSICIAN/PROVIDER WITH ANY CHANGE IN CONDITION. [code = SKILLED NURSE TO PERFORM ENVIRONMENTAL SAFETY RISK ASSESSMENT AND FALL RISK ASSESSMENT AND PROVIDE INSTRUCTION TO IMPLEMENT ENVIRONMENTAL SAFETY AND FALL PREVENTION STRATEGIES THROUGHOUT THE CERTIFICATION PERIOD. SKILLED NURSE WILL MAINTAIN SITUATIONAL AWARENESS AND WILL NOTIFY CLINICAL APPLICATION SUPPORT AND PHYSICIAN/PROVIDER WITH ANY CHANGE IN CONDITION.] [...] Outpatient NEW ADMISSION [facility]DILIP [facility] [id number] 14.81
--- OUTSIDE RECORDS SUMMARY | 2025-08-19 19:00 | XMS_ITS | Clinical Summary ---
Author Organization Unknown Care Team Providers Care Psych Assistant Name Role Phone LOKI MILES MD, MICHA Unavailable Unavailable SAUL URIAS, DILIP Unavailable Unavailable Payers Payer Name Policy Type Policy Number Effective Date Expira tion Date MEDICARE - NGS [place] - PD [id number] Problems Condition Name Condition Details Condition Category [...] MAINTAIN SITUATIONAL AWARENESS AND WILL NOTIFY CLINICAL METAL DOOR ASSEMBLER AND PHYSICIAN/PROVIDER WITH ANY CHANGE IN CONDITION. [code = SKILLED NURSE TO PERFORM ENVIRONMENTAL SAFETY RISK ASSESSMENT AND FALL RISK ASSESSMENT AND PROVIDE INSTRUCTION TO IMPLEMENT ENVIRONMENTAL SAFETY AND FALL PREVENTION STRATEGIES THROUGHOUT THE CERTIFICATION PERIOD. SKILLED NURSE WILL MAINTAIN SITUATIONAL AWARENESS AND WILL NOTIFY CLINICAL METAL DOOR ASSEMBLER AND PHYSICIAN/PROVIDER WITH ANY CHANGE IN CONDITION.] [...] Outpatient NEW ADMISSION [facility]ILIP [facility] [id number] 14.81
--- OUTSIDE RECORDS SUMMARY | 2025-08-19 19:00 | XMS_ITS | Clinical Summary ---
Author Organization Unknown Care Team Providers Care Activity Leader Name Role Phone LOKI MILES MD, MICHA Unavailable Unavailable SAUL URIAS, DILIP Unavailable Unavailable Payers Payer Name Policy Type Policy Number Effective Date Expira tion Date MEDICARE - NGS [place] - PD [id number] Problems Condition Name Condition Details Condition Category [...] MAINTAIN SITUATIONAL AWARENESS AND WILL NOTIFY CLINICAL PROCESS ARCHITECT AND PHYSICIAN/PROVIDER WITH ANY CHANGE IN CONDITION. [code = SKILLED NURSE TO PERFORM ENVIRONMENTAL SAFETY RISK ASSESSMENT AND FALL RISK ASSESSMENT AND PROVIDE INSTRUCTION TO IMPLEMENT ENVIRONMENTAL SAFETY AND FALL PREVENTION STRATEGIES THROUGHOUT THE CERTIFICATION PERIOD. SKILLED NURSE WILL MAINTAIN SITUATIONAL AWARENESS AND WILL NOTIFY CLINICAL PROCESS ARCHITECT AND PHYSICIAN/PROVIDER WITH ANY CHANGE IN CONDITION.] [...] 00:00:00 Outpatient NEW ADMISSION SAULDILIP [facility] [id number] 14.81
--- OUTSIDE RECORDS SUMMARY | 2025-08-19 19:00 | XMS_ITS | Clinical Summary ---
Author Organization Unknown Care Team Providers Care Hockey Scout Name Role Phone LOKI MILES MD, MICHA Unavailable Unavailable SAUL URIAS, DILIP Unavailable Unavailable Payers Payer Name Policy Type Policy Number Effective Date Expira tion Date MEDICARE - NGS [place] - PD [id number] Problems Condition Name Condition Details Condition Category [...] MAINTAIN SITUATIONAL AWARENESS AND WILL NOTIFY CLINICAL BUILDING OFFICIAL AND PHYSICIAN/PROVIDER WITH ANY CHANGE IN CONDITION. [code = SKILLED NURSE TO PERFORM ENVIRONMENTAL SAFETY RISK ASSESSMENT AND FALL RISK ASSESSMENT AND PROVIDE INSTRUCTION TO IMPLEMENT ENVIRONMENTAL SAFETY AND FALL PREVENTION STRATEGIES THROUGHOUT THE CERTIFICATION PERIOD. SKILLED NURSE WILL MAINTAIN SITUATIONAL AWARENESS AND WILL NOTIFY CLINICAL BUILDING OFFICIAL AND PHYSICIAN/PROVIDER WITH ANY CHANGE IN CONDITION.] [...] [facility]ILIP [facility] [id number] 14.81
--- OUTSIDE RECORDS SUMMARY | 2025-08-19 19:00 | XMS_ITS | Clinical Summary ---
Author Organization Unknown Care Team Providers Care Data Processing Equipment Repairer Name Role Phone LOKI MILES MD, MICHA Unavailable Unavailable SAUL URIAS, DILIP Unavailable Unavailable Payers Payer Name Policy Type Policy Number Effective Date Expira tion Date MEDICARE - NGS [place] - PD [id number] Problems Condition Name Condition Details Condition Category [...] MAINTAIN SITUATIONAL AWARENESS AND WILL NOTIFY CLINICAL TOOL SETTER APPRENTICE AND PHYSICIAN/PROVIDER WITH ANY CHANGE IN CONDITION. [code = SKILLED NURSE TO PERFORM ENVIRONMENTAL SAFETY RISK ASSESSMENT AND FALL RISK ASSESSMENT AND PROVIDE INSTRUCTION TO IMPLEMENT ENVIRONMENTAL SAFETY AND FALL PREVENTION STRATEGIES THROUGHOUT THE CERTIFICATION PERIOD. SKILLED NURSE WILL MAINTAIN SITUATIONAL AWARENESS AND WILL NOTIFY CLINICAL TOOL SETTER APPRENTICE AND PHYSICIAN/PROVIDER WITH ANY CHANGE IN [...] CARE WILL BE ESTABLISHED THAT MEETS PATIENT'S CARE HOME NEEDS AND INCLUDES PATIENT GOAL FOR [...] 00:00:00 2025-08-20 00:00:00 Outpatient NEW ADMISSION [facility]DILIP [facility] [id number] 14.81
--- OUTSIDE RECORDS SUMMARY | 2025-08-19 19:00 | XMS_ITS | Clinical Summary ---
Author Organization Unknown Care Team Providers Care Shore Working Supervisor Name Role Phone LOKI MILES MD, MICHA Unavailable Unavailable SAUL URIAS, DILIP Unavailable Unavailable Payers Payer Name Policy Type Policy Number Effective Date Expira tion Date MEDICARE - NGS [place] - PD [id number] Problems Condition Name Condition Details Condition Category [...] MAINTAIN SITUATIONAL AWARENESS AND WILL NOTIFY CLINICAL CHAIN BUILDER LOOM CONTROL AND PHYSICIAN/PROVIDER WITH ANY CHANGE IN CONDITION. [code = SKILLED NURSE TO PERFORM ENVIRONMENTAL SAFETY RISK ASSESSMENT AND FALL RISK ASSESSMENT AND PROVIDE INSTRUCTION TO IMPLEMENT ENVIRONMENTAL SAFETY AND FALL PREVENTION STRATEGIES THROUGHOUT THE CERTIFICATION PERIOD. SKILLED NURSE WILL MAINTAIN SITUATIONAL AWARENESS AND WILL NOTIFY CLINICAL CHAIN BUILDER LOOM CONTROL AND PHYSICIAN/PROVIDER WITH ANY CHANGE IN CONDITION.] [...] 00:00:00 2025-08-20 00:00:00 Outpatient NEW ADMISSION [facility]DILIP [facility] [id number] 14.81
--- OUTSIDE RECORDS SUMMARY | 2025-08-19 19:00 | XMS_ITS | Clinical Summary ---
Author Organization Unknown Care Team Providers Care Molding Cutter Name Role Phone LOKI MILES MD, MICHA Unavailable Unavailable SAUL URIAS, DILIP Unavailable Unavailable Payers Payer Name Policy Type Policy Number Effective Date Expira tion Date MEDICARE - NGS [place] - PD [id number] Problems Condition Name Condition Details Condition Category [...] MAINTAIN SITUATIONAL AWARENESS AND WILL NOTIFY CLINICAL X RAY PHYSICIAN AND PHYSICIAN/PROVIDER WITH ANY CHANGE IN CONDITION. [code = SKILLED NURSE TO PERFORM ENVIRONMENTAL SAFETY RISK ASSESSMENT AND FALL RISK ASSESSMENT AND PROVIDE INSTRUCTION TO IMPLEMENT ENVIRONMENTAL SAFETY AND FALL PREVENTION STRATEGIES THROUGHOUT THE CERTIFICATION PERIOD. SKILLED NURSE WILL MAINTAIN SITUATIONAL AWARENESS AND WILL NOTIFY CLINICAL X RAY PHYSICIAN AND PHYSICIAN/PROVIDER WITH ANY CHANGE IN [...] CARE WILL BE ESTABLISHED THAT MEETS PATIENT'S FPC NEEDS AND INCLUDES PATIENT GOAL FOR HOME [...] EQUAL STRENGTH. PATIENT WC BOUND. LIVES IN [place]. LS CLEAR ON RA. DENIES CP/PALPITATIONS/SOB/DIZZINESS. DENIES [...] NEW ADMISSION [facility]DILIP [facility] [id number] 14.81
--- OUTSIDE RECORDS SUMMARY | 2025-08-19 19:00 | XMS_ITS | Clinical Summary ---
Author Organization Unknown Care Team Providers Care Regional Recruiter Name Role Phone LOKI MILES MD, MICHA Unavailable Unavailable SAUL URIAS, DILIP Unavailable Unavailable Payers Payer Name Policy Type Policy Number Effective Date Expira tion Date MEDICARE - NGS [place] - PD [id number] Problems Condition Name Condition Details Condition Category [...] MAINTAIN SITUATIONAL AWARENESS AND WILL NOTIFY CLINICAL GUEST ROOM ATTENDANT AND PHYSICIAN/PROVIDER WITH ANY CHANGE IN CONDITION. [code = SKILLED NURSE TO PERFORM ENVIRONMENTAL SAFETY RISK ASSESSMENT AND FALL RISK ASSESSMENT AND PROVIDE INSTRUCTION TO IMPLEMENT ENVIRONMENTAL SAFETY AND FALL PREVENTION STRATEGIES THROUGHOUT THE CERTIFICATION PERIOD. SKILLED NURSE WILL MAINTAIN SITUATIONAL AWARENESS AND WILL NOTIFY CLINICAL GUEST ROOM ATTENDANT AND PHYSICIAN/PROVIDER WITH ANY CHANGE [...] 00:00:00 2025-08-20 00:00:00 Outpatient NEW ADMISSION [facility]ILIP [facility] [id number] 14.81
--- OUTSIDE RECORDS SUMMARY | 2025-08-19 19:00 | XMS_ITS | Clinical Summary ---
Author Organization Unknown Care Team Providers Care Position Classifier Name Role Phone LOKI MILES MD, MICHA Unavailable Unavailable SAUL URIAS, DILIP Unavailable Unavailable Payers Payer Name Policy Type Policy Number Effective Date Expira tion Date MEDICARE - NGS [place] - PD [id number] Problems Condition Name Condition Details Condition Category [...] MAINTAIN SITUATIONAL AWARENESS AND WILL NOTIFY CLINICAL IP LITIGATION PARALEGAL AND PHYSICIAN/PROVIDER WITH ANY CHANGE IN CONDITION. [code = SKILLED NURSE TO PERFORM ENVIRONMENTAL SAFETY RISK ASSESSMENT AND FALL RISK ASSESSMENT AND PROVIDE INSTRUCTION TO IMPLEMENT ENVIRONMENTAL SAFETY AND FALL PREVENTION STRATEGIES THROUGHOUT THE CERTIFICATION PERIOD. SKILLED NURSE WILL MAINTAIN SITUATIONAL AWARENESS AND WILL NOTIFY CLINICAL IP LITIGATION PARALEGAL AND PHYSICIAN/PROVIDER WITH ANY CHANGE IN CONDITION.] [...] CARE WILL BE ESTABLISHED THAT MEETS PATIENT'S PRISON NEEDS AND INCLUDES PATIENT GOAL FOR HOME [...] 2025-06-22 00:00:00 2025-08-20 00:00:00 Outpatient NEW ADMISSION [facility]ILIP [facility] [id number] 14.81
--- OUTSIDE RECORDS SUMMARY | 2025-08-19 19:00 | XMS_ITS | Clinical Summary ---
Author Organization Unknown Care Team Providers Care Petrophysicist Name Role Phone LOKI MILES MD, MICHA Unavailable Unavailable SAUL URIAS, DILIP Unavailable Unavailable Payers Payer Name Policy Type Policy Number Effective Date Expira tion Date MEDICARE - [place] [id number] Problems Condition Name Condition Details Condition Category [...] SITUATIONAL AWARENESS AND WILL NOTIFY CLINICAL PERSONAL SUPPORT WORKER AND PHYSICIAN/PROVIDER WITH ANY CHANGE IN CONDITION. [code = SKILLED NURSE TO PERFORM ENVIRONMENTAL SAFETY RISK ASSESSMENT AND FALL RISK ASSESSMENT AND PROVIDE INSTRUCTION TO IMPLEMENT ENVIRONMENTAL SAFETY AND FALL PREVENTION STRATEGIES THROUGHOUT THE CERTIFICATION PERIOD. SKILLED NURSE WILL MAINTAIN SITUATIONAL AWARENESS AND WILL NOTIFY CLINICAL PERSONAL SUPPORT WORKER AND PHYSICIAN/PROVIDER WITH ANY CHANGE IN CONDITION.] [...] EQUAL STRENGTH. PATIENT WC BOUND. LIVES IN [place]. LS CLEAR ON RA. DENIES CP/PALPITATIONS/SOB/DIZZINESS. DENIES [...] 00:00:00 Outpatient NEW ADMISSION SAULDILIP [facility] [id number] 14.81
--- OUTSIDE RECORDS SUMMARY | 2025-08-19 19:00 | XMS_ITS | Clinical Summary ---
Author Organization Unknown Care Team Providers Care Director Of Convention Services Name Role Phone LOKI MILES MD, MICHA Unavailable Unavailable SAUL URIAS, DILIP Unavailable Unavailable Payers Payer Name Policy Type Policy Number Effective Date Expira tion Date MEDICARE - NGS [place] - [place] [id number] Problems Condition Name Condition Details Condition Category [...] MAINTAIN SITUATIONAL AWARENESS AND WILL NOTIFY CLINICAL BRIDAL CONSULTANT AND PHYSICIAN/PROVIDER WITH ANY CHANGE IN CONDITION. [code = SKILLED NURSE TO PERFORM ENVIRONMENTAL SAFETY RISK ASSESSMENT AND FALL RISK ASSESSMENT AND PROVIDE INSTRUCTION TO IMPLEMENT ENVIRONMENTAL SAFETY AND FALL PREVENTION STRATEGIES THROUGHOUT THE CERTIFICATION PERIOD. SKILLED NURSE WILL MAINTAIN SITUATIONAL AWARENESS AND WILL NOTIFY CLINICAL BRIDAL CONSULTANT AND PHYSICIAN/PROVIDER WITH ANY CHANGE IN CONDITION.] [...] ADMISSION SAULDILIP [facility] [id number] 14.81
--- OUTSIDE RECORDS SUMMARY | 2025-08-19 19:00 | XMS_ITS | Clinical Summary ---
Author Organization Unknown Care Team Providers Care Crate Icer Name Role Phone LOKI MILES MD, MICHA Unavailable Unavailable SAUL URIAS, DILIP Unavailable Unavailable Payers Payer Name Policy Type Policy Number Effective Date Expira tion Date MEDICARE - [place] - [place] [id number] Problems Condition Name Condition Details Condition Category [...] MAINTAIN SITUATIONAL AWARENESS AND WILL NOTIFY CLINICAL PROVER AND PHYSICIAN/PROVIDER WITH ANY CHANGE IN CONDITION. [code = SKILLED NURSE TO PERFORM ENVIRONMENTAL SAFETY RISK ASSESSMENT AND FALL RISK ASSESSMENT AND PROVIDE INSTRUCTION TO IMPLEMENT ENVIRONMENTAL SAFETY AND FALL PREVENTION STRATEGIES THROUGHOUT THE CERTIFICATION PERIOD. SKILLED NURSE WILL MAINTAIN SITUATIONAL AWARENESS AND WILL NOTIFY CLINICAL PROVER AND PHYSICIAN/PROVIDER WITH ANY CHANGE IN CONDITION.] [...] 00:00:00 2025-08-20 00:00:00 Outpatient NEW ADMISSION SAULDILIP [facility] [id number] 14.81
--- OUTSIDE RECORDS SUMMARY | 2025-08-19 19:00 | XMS_ITS | Clinical Summary ---
Author Organization Unknown Care Team Providers Care Winch Operator Name Role Phone LOKI MILES MD, MICHA Unavailable Unavailable SAUL URIAS, DILIP Unavailable Unavailable Payers Payer Name Policy Type Policy Number Effective Date Expira tion Date MEDICARE - NGS [place] - [place] [id number] Problems Condition Name Condition Details Condition Category [...] MAINTAIN SITUATIONAL AWARENESS AND WILL NOTIFY CLINICAL BLINTZE ROLLER AND PHYSICIAN/PROVIDER WITH ANY CHANGE IN CONDITION. [code = SKILLED NURSE TO PERFORM ENVIRONMENTAL SAFETY RISK ASSESSMENT AND FALL RISK ASSESSMENT AND PROVIDE INSTRUCTION TO IMPLEMENT ENVIRONMENTAL SAFETY AND FALL PREVENTION STRATEGIES THROUGHOUT THE CERTIFICATION PERIOD. SKILLED NURSE WILL MAINTAIN SITUATIONAL AWARENESS AND WILL NOTIFY CLINICAL BLINTZE ROLLER AND PHYSICIAN/PROVIDER WITH ANY CHANGE IN CONDITION.] [...] 00:00:00 Outpatient NEW ADMISSION SAULDILIP [facility] [id number] 14.81
--- OUTSIDE RECORDS SUMMARY | 2025-08-19 19:00 | XMS_ITS | Clinical Summary ---
Author Organization Unknown Care Team Providers Care Oyster Harvester Name Role Phone LOKI MILES MD, MICHA Unavailable Unavailable SAUL URIAS, DILIP Unavailable Unavailable Payers Payer Name Policy Type Policy Number Effective Date Expira tion Date MEDICARE - NGS [place] - PD [id number] Problems Condition Name Condition Details Condition Category [...] MAINTAIN SITUATIONAL AWARENESS AND WILL NOTIFY CLINICAL AVIATION ELECTRONICS TECHNICIAN AND PHYSICIAN/PROVIDER WITH ANY CHANGE IN CONDITION. [code = SKILLED NURSE TO PERFORM ENVIRONMENTAL SAFETY RISK ASSESSMENT AND FALL RISK ASSESSMENT AND PROVIDE INSTRUCTION TO IMPLEMENT ENVIRONMENTAL SAFETY AND FALL PREVENTION STRATEGIES THROUGHOUT THE CERTIFICATION PERIOD. SKILLED NURSE WILL MAINTAIN SITUATIONAL AWARENESS AND WILL NOTIFY CLINICAL AVIATION ELECTRONICS TECHNICIAN AND PHYSICIAN/PROVIDER WITH ANY CHANGE IN [...] CARE WILL BE ESTABLISHED THAT MEETS PATIENT'S MCC NEEDS AND INCLUDES PATIENT GOAL FOR HOME [...] 00:00:00 Outpatient NEW ADMISSION SAULDILIP [facility] [id number] 14.81
--- OUTSIDE RECORDS SUMMARY | 2025-08-19 19:00 | XMS_ITS | Clinical Summary ---
Author Organization Unknown Care Team Providers Care Cheese Cooker Name Role Phone LOKI MILES MD, MICHA Unavailable Unavailable SAUL URIAS, DILIP Unavailable Unavailable Payers Payer Name Policy Type Policy Number Effective Date Expira tion Date MEDICARE - NGS [place] - [place] [id number] Problems Condition Name Condition Details Condition Category [...] MAINTAIN SITUATIONAL AWARENESS AND WILL NOTIFY CLINICAL AUTOMATIC GLOVE TURNER AND FORMER AND PHYSICIAN/PROVIDER WITH ANY CHANGE IN CONDITION. [code = SKILLED NURSE TO PERFORM ENVIRONMENTAL SAFETY RISK ASSESSMENT AND FALL RISK ASSESSMENT AND PROVIDE INSTRUCTION TO IMPLEMENT ENVIRONMENTAL SAFETY AND FALL PREVENTION STRATEGIES THROUGHOUT THE CERTIFICATION PERIOD. SKILLED NURSE WILL MAINTAIN SITUATIONAL AWARENESS AND WILL NOTIFY CLINICAL AUTOMATIC GLOVE TURNER AND FORMER AND PHYSICIAN/PROVIDER WITH ANY CHANGE IN CONDITION.] [...] CARE WILL BE ESTABLISHED THAT MEETS PATIENT'S PENITENTIARY NEEDS AND INCLUDES PATIENT GOAL FOR HOME [...] 00:00:00 Outpatient NEW ADMISSION SAULDILIP [facility] [id number] 14.81
--- OUTSIDE RECORDS SUMMARY | 2025-08-19 19:00 | XMS_ITS | Clinical Summary ---
Author Organization Unknown Care Team Providers Care Lyric Writer Name Role Phone LOKI MILES MD, MICHA Unavailable Unavailable SAUL URIAS, DILIP Unavailable Unavailable Payers Payer Name Policy Type Policy Number Effective Date Expira tion Date MEDICARE - NGS [place] - [place] [id number] Problems Condition Name Condition Details Condition Category [...] MAINTAIN SITUATIONAL AWARENESS AND WILL NOTIFY CLINICAL FOOD PRODUCTS TESTER AND PHYSICIAN/PROVIDER WITH ANY CHANGE IN CONDITION. [code = SKILLED NURSE TO PERFORM ENVIRONMENTAL SAFETY RISK ASSESSMENT AND FALL RISK ASSESSMENT AND PROVIDE INSTRUCTION TO IMPLEMENT ENVIRONMENTAL SAFETY AND FALL PREVENTION STRATEGIES THROUGHOUT THE CERTIFICATION PERIOD. SKILLED NURSE WILL MAINTAIN SITUATIONAL AWARENESS AND WILL NOTIFY CLINICAL FOOD PRODUCTS TESTER AND PHYSICIAN/PROVIDER WITH ANY CHANGE IN CONDITION.] [...] 00:00:00 2025-08-20 00:00:00 Outpatient NEW ADMISSION [facility]ILIP [facility] [id number] 14.81
--- OUTSIDE RECORDS SUMMARY | 2025-08-19 19:00 | XMS_ITS | Clinical Summary ---
Author Organization Unknown Care Team Providers Care Single Pointed Operator Name Role Phone LOKI MILES MD, MICHA Unavailable Unavailable SAUL URIAS, DILIP Unavailable Unavailable Payers Payer Name Policy Type Policy Number Effective Date Expira tion Date MEDICARE - NGS [place] - [place] [id number] Problems Condition Name Condition Details Condition Category [...] MAINTAIN SITUATIONAL AWARENESS AND WILL NOTIFY CLINICAL EXTRUDER OPERATOR MULTIPLE AND PHYSICIAN/PROVIDER WITH ANY CHANGE IN CONDITION. [code = SKILLED NURSE TO PERFORM ENVIRONMENTAL SAFETY RISK ASSESSMENT AND FALL RISK ASSESSMENT AND PROVIDE INSTRUCTION TO IMPLEMENT ENVIRONMENTAL SAFETY AND FALL PREVENTION STRATEGIES THROUGHOUT THE CERTIFICATION PERIOD. SKILLED NURSE WILL MAINTAIN SITUATIONAL AWARENESS AND WILL NOTIFY CLINICAL EXTRUDER OPERATOR MULTIPLE AND PHYSICIAN/PROVIDER WITH ANY CHANGE IN CONDITION.] [...] ADMISSION SAULDILIP [facility] [id number] 14.81
--- OUTSIDE RECORDS SUMMARY | 2025-08-19 19:00 | XMS_ITS | Clinical Summary ---
Author Organization Unknown Care Team Providers Care Manager Technical Services Name Role Phone LOKI MILES MD, MICHA Unavailable Unavailable SAUL URIAS, DILIP Unavailable Unavailable Payers Payer Name Policy Type Policy Number Effective Date Expira tion Date MEDICARE - NGS [place] - [place] [id number] Problems Condition Name Condition Details Condition Category [...] MAINTAIN SITUATIONAL AWARENESS AND WILL NOTIFY CLINICAL SAMPLE CARRIER AND PHYSICIAN/PROVIDER WITH ANY CHANGE IN CONDITION. [code = SKILLED NURSE TO PERFORM ENVIRONMENTAL SAFETY RISK ASSESSMENT AND FALL RISK ASSESSMENT AND PROVIDE INSTRUCTION TO IMPLEMENT ENVIRONMENTAL SAFETY AND FALL PREVENTION STRATEGIES THROUGHOUT THE CERTIFICATION PERIOD. SKILLED NURSE WILL MAINTAIN SITUATIONAL AWARENESS AND WILL NOTIFY CLINICAL SAMPLE CARRIER AND PHYSICIAN/PROVIDER WITH ANY CHANGE IN CONDITION.] [...] 00:00:00 2025-08-20 00:00:00 Outpatient NEW ADMISSION SAULDILIP [facility] [id number] 14.81
--- OUTSIDE RECORDS SUMMARY | 2025-08-19 19:00 | XMS_ITS | Clinical Summary ---
Author Organization Unknown Care Team Providers Care Brand Ambassadors Promotional Sales Name Role Phone LOKI MILES MD, MICHA Unavailable Unavailable SAUL URIAS, DILIP Unavailable Unavailable Payers Payer Name Policy Type Policy Number Effective Date Expira tion Date MEDICARE - N[place] - [place] [id number] Problems Condition Name Condition Details Condition Category [...] MAINTAIN SITUATIONAL AWARENESS AND WILL NOTIFY CLINICAL FARM TRUCK DRIVER AND PHYSICIAN/PROVIDER WITH ANY CHANGE IN CONDITION. [code = SKILLED NURSE TO PERFORM ENVIRONMENTAL SAFETY RISK ASSESSMENT AND FALL RISK ASSESSMENT AND PROVIDE INSTRUCTION TO IMPLEMENT ENVIRONMENTAL SAFETY AND FALL PREVENTION STRATEGIES THROUGHOUT THE CERTIFICATION PERIOD. SKILLED NURSE WILL MAINTAIN SITUATIONAL AWARENESS AND WILL NOTIFY CLINICAL FARM TRUCK DRIVER AND PHYSICIAN/PROVIDER WITH ANY CHANGE IN [...] NEW ADMISSION SAULDILIP [facility] [id number] 14.81
--- OUTSIDE RECORDS SUMMARY | 2025-08-19 19:00 | XMS_ITS | Clinical Summary ---
Author Organization Unknown Care Team Providers Care Snap Attacher Name Role Phone LOKI MILES MD, MICHA Unavailable Unavailable SAUL URIAS, DILIP Unavailable Unavailable Payers Payer Name Policy Type Policy Number Effective Date Expira tion Date MEDICARE - NGS [place] - PD [id number] Problems Condition Name Condition Details Condition Category [...] SITUATIONAL AWARENESS AND WILL NOTIFY CLINICAL SENIOR BIOINFORMATICS SPECIALIST AND PHYSICIAN/PROVIDER WITH ANY CHANGE IN CONDITION. [code = SKILLED NURSE TO PERFORM ENVIRONMENTAL SAFETY RISK ASSESSMENT AND FALL RISK ASSESSMENT AND PROVIDE INSTRUCTION TO IMPLEMENT ENVIRONMENTAL SAFETY AND FALL PREVENTION STRATEGIES THROUGHOUT THE CERTIFICATION PERIOD. SKILLED NURSE WILL MAINTAIN SITUATIONAL AWARENESS AND WILL NOTIFY CLINICAL SENIOR BIOINFORMATICS SPECIALIST AND PHYSICIAN/PROVIDER WITH ANY CHANGE IN [...] 2025-08-20 00:00:00 Outpatient NEW ADMISSION SAULDILIP [facility] [id number] 14.81
--- OUTSIDE RECORDS SUMMARY | 2025-08-19 19:00 | XMS_ITS | Clinical Summary ---
Author Organization Unknown Care Team Providers Care Resource Economist Name Role Phone LOKI MILES MD, MICHA Unavailable Unavailable SAUL URIAS, DILIP Unavailable Unavailable Payers Payer Name Policy Type Policy Number Effective Date Expira tion Date MEDICARE - NGS [place] - PD [id number] Problems Condition Name Condition Details Condition Category [...] MAINTAIN SITUATIONAL AWARENESS AND WILL NOTIFY CLINICAL BLACKJACK SUPERVISOR AND PHYSICIAN/PROVIDER WITH ANY CHANGE IN CONDITION. [code = SKILLED NURSE TO PERFORM ENVIRONMENTAL SAFETY RISK ASSESSMENT AND FALL RISK ASSESSMENT AND PROVIDE INSTRUCTION TO IMPLEMENT ENVIRONMENTAL SAFETY AND FALL PREVENTION STRATEGIES THROUGHOUT THE CERTIFICATION PERIOD. SKILLED NURSE WILL MAINTAIN SITUATIONAL AWARENESS AND WILL NOTIFY CLINICAL BLACKJACK SUPERVISOR AND PHYSICIAN/PROVIDER WITH ANY CHANGE IN [...] EQUAL STRENGTH. PATIENT WC BOUND. LIVES IN CARE HOME. LS CLEAR ON RA. DENIES CP/PALPITATIONS/SOB/DIZZINESS. [...] 00:00:00 Outpatient NEW ADMISSION SAULDILIP [facility] [id number] 14.81
--- OUTSIDE RECORDS SUMMARY | 2025-08-19 19:00 | XMS_ITS | Clinical Summary ---
Author Organization Unknown Care Team Providers Care Fuel Verification Technician Name Role Phone LOKI MILES MD, MICHA Unavailable Unavailable SAUL URIAS, DILIP Unavailable Unavailable Payers Payer Name Policy Type Policy Number Effective Date Expira tion Date MEDICARE - NGS [place] - [place] [id number] Problems Condition Name Condition Details Condition Category [...] MAINTAIN SITUATIONAL AWARENESS AND WILL NOTIFY CLINICAL ANGIOGRAPHER AND PHYSICIAN/PROVIDER WITH ANY CHANGE IN CONDITION. [code = SKILLED NURSE TO PERFORM ENVIRONMENTAL SAFETY RISK ASSESSMENT AND FALL RISK ASSESSMENT AND PROVIDE INSTRUCTION TO IMPLEMENT ENVIRONMENTAL SAFETY AND FALL PREVENTION STRATEGIES THROUGHOUT THE CERTIFICATION PERIOD. SKILLED NURSE WILL MAINTAIN SITUATIONAL AWARENESS AND WILL NOTIFY CLINICAL ANGIOGRAPHER AND PHYSICIAN/PROVIDER WITH ANY CHANGE IN CONDITION.] [...] 00:00:00 Outpatient NEW ADMISSION SAULDILIP [facility] [id number] 14.81
--- OUTSIDE RECORDS SUMMARY | 2025-08-19 19:00 | XMS_ITS | Clinical Summary ---
Author Organization Unknown Care Team Providers Care Financial Services Education Consultant Name Role Phone LOKI MILES MD, MICHA Unavailable Unavailable SAUL URIAS, DILIP Unavailable Unavailable Payers Payer Name Policy Type Policy Number Effective Date Expira tion Date MEDICARE - NGS [place] - [place] [id number] Problems Condition Name Condition Details Condition Category [...] MAINTAIN SITUATIONAL AWARENESS AND WILL NOTIFY CLINICAL INSTALLER HELPER AND PHYSICIAN/PROVIDER WITH ANY CHANGE IN CONDITION. [code = SKILLED NURSE TO PERFORM ENVIRONMENTAL SAFETY RISK ASSESSMENT AND FALL RISK ASSESSMENT AND PROVIDE INSTRUCTION TO IMPLEMENT ENVIRONMENTAL SAFETY AND FALL PREVENTION STRATEGIES THROUGHOUT THE CERTIFICATION PERIOD. SKILLED NURSE WILL MAINTAIN SITUATIONAL AWARENESS AND WILL NOTIFY CLINICAL INSTALLER HELPER AND PHYSICIAN/PROVIDER WITH ANY CHANGE IN [...] 00:00:00 Outpatient NEW ADMISSION SAULDILIP [facility] [id number] 14.81
== END 2025-07-08 13:58 | disposition home or self-care (01) ==
LOC: HO.HNS 13:22
PROVIDERS: PCP Internal Medicine; Visit Provider Physician Assistant
DX: Z98.890 Other specified postprocedural states (principal)
CPT/HCPCS: 99024

== ENCOUNTER → 2025-07-08 13:22 | Outpatient (BNVA) | payer MEDICARE, MEDICAID, SELFPAY | PROVIDERS: PCP Internal Medicine; Visit Provider Physician Assistant | DX: M54.2 Cervicalgia (principal); Z98.890 Other specified postprocedural states | CPT/HCPCS: 99212 ==

== ENCOUNTER 2025-07-22 10:58 | Outpatient (AMB) | payer MEDICARE, MEDICAID, SELFPAY ==
--- NOTE | 2025-07-22 11:06 | MHC.OFFVIS ---
Intake Visit Reasons: Disorder of Skin & subcutaneous tissue Intake Note: Jose is a 74 year old male who presents today with a residential counselor for a evaluation of both of his feet. His counselor informed me that he has very thick nails and needs to be cut if possible. Patient does compain of swelling and nubness in his feet. He menton more of the left foot is more worse. 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 The patient is here with his farm or ranch animal caretaker for painful toes and nails. Denies any other pedal complaints at this time. Denies any history of infections. [facility] Medical History History of blood transfusion (~03/27/25) History of GI bleed (~03/27/25) History of airway aspiration (~11/2024) Dysphagia History of stroke (~2021) Hx of varicose veins Depression COVID-19 Numbness HTN (hypertension) Spastic hemiparesis of left dominant side Spastic hemiplegia affecting right dominant side Spastic hemiparesis affecting dominant side Contracture, left hand Bilateral knee contractures Elevated PSA Moderate major depression Insomnia Fibromyalgia GERD (gastroesophageal reflux disease) Hypovitaminosis D Lumbar degenerative disc disease Surgical History Hx of spinal surgery (12/11/24) Hx of varicose vein ligation and stripping History of prostate surgery History of shoulder surgery History of laminectomy Family History Father Diabetes Hypertension Liver cancer Mother Diabetes Hypertension Stroke Other Substance use disorder Social History Household Members: Other Household Members Other:: fdc Housing: House Housing Other:: fdc Are you a primary client care coordinator to a significant other at home: No Do you presently have visiting nurse or other home services: Yes Alcohol intake: former Patient Tobacco Use Status: Former Tobacco user Tobacco use type: Cigarette Cigarettes Per Day: 3 e-Cigarette/Vaping Use: Never Used Second Hand Smoke Exposure: Yes Advance Directives Date on File: 09/06/22 service: No Current occupational status: disabled Cognitive needs: Yes (cane) Hearing needs: No Vision needs: Yes (reading glasses) Review of Systems Const All systems reviewed & are unremarkable except as noted in HPI and below Physical Exam Extrem Other: *Bilateral Lower Extremity Focused Foot Exam Vascular: DP/PT 1/4, CFT<3s to digits, TG warm to cool, no pedal edema, pedal hair absent Derm: Skin: No open lesions, ulcerations, or calluses. Interdigital spaces: Clear, no maceration or fungal infection. Nails: Severely thickened elongated dystrophic discolored toenails x 10 with subungual debris. Neuro: Protective sensation grossly diminished bilateral lower extremities Msk: No pain on range of motion and palpation of bilateral lower extremities Footwear Assessment: Shoes inspected; appropriate fit, no excessive wear, or foreign objects noted. Assessment & Plan Assessment & Plan (1) Spastic hemiplegia affecting right dominant side: Code(s): G81.11 - Spastic hemiplegia affecting right dominant side Category: Medical Qualifiers: Hemiplegia etiology: late effect of cerebrovascular disease Cerebrovascular disease type: cerebral infarction Qualified Code(s): I69.351 - Hemiplegia and hemiparesis following cerebral infarction affecting right dominant side Plan: The patient requires routine care as he is unable to perform self-care due to his hemiplegia (2) Onychogryphosis: Code(s): L60.2 - Onychogryphosis Category: Medical Plan: Debrided elongated thickened nails X 10 (3) PAD (peripheral artery disease): Code(s): I73.9 - Peripheral vascular disease, unspecified Category: Medical Plan: We will continue to monitor Coding Level of Care Code New Pt Level 4 (63750) Diagnoses Spastic hemiplegia of right dominant side as late effect of cerebral infarction I69.351 Hemiplegia etiology: late effect of cerebrovascular disease Cerebrovascular disease type: cerebral infarction Onychogryphosis L60.2 PAD (peripheral artery disease) I73.9 Time Spent (min) 20
--- OUTSIDE RECORDS SUMMARY | 2025-07-22 12:55 | XMS_ITS | Encounter Summary ---
Author Organization [facility] Address [address] [place] [address] Care Team Providers Care Field Insurance Sales Manager Name Role Phone Farideh Garcia MD Primary Care Provider [phone] Encounter Details Date Type Department Care Team (Late st Contact Info) Description 12/15/2024 Lab Requisition [facility] - Main Lab [address] [facility] [place] [address] Farideh Garcia MD [address] [place] [address] Benign prostatic hyperplasia with lower urinary tract [...] LAB CHEMISTRY METHOD 12/15/2024 12:[address] [facility] Blood Venous blood specimen / Unknown Venipuncture / Unknown 12/15/2024 5:57 AM EDT 12/15/2024 11:[address] [facility] - 12/15/2024 12:44 PM EDT The Siemens Advia Centaur Chemiluminescent Immunoassay is used. Results obtained with different assay methods or kits cannot be used interchangeably. Results cannot be interpreted as absolute evidence of the presence or absence of malignant disease. us Farideh Garcia MD LAB BLOOD ORDERABLES Final Resul t [facility] ([facility]) [facility] [address] [place] [address], documented in this encounter Visit Diagnoses Diagnosis Benign prostatic hyperplasia with lower urinary tract symptoms documented in this encounter Care Teams Field Insurance Sales Manager Relationship Specialty Start Date End Date Farideh Garcia MD [address] [place] [address] [address] [place] [address] PCP - General Geriatric Medicine 09/16/24 documented as of this encounter
--- OUTSIDE RECORDS SUMMARY | 2025-07-22 12:55 | XMS_ITS | Encounter Summary ---
Author Organization [facility] Address [address] [place] [address] Care Team Providers Care Jigsaw Operator Name Role Phone Farideh Garcia MD Primary Care Provider Encounter Details Date Type Department Care Team (Late st Contact Info) Description 12/11/2024 Lab Requisition [facility] - Main Lab [address] [facility] [address] [place] [address] Farideh Garcia MD [address] [place] [address] Dysuria Social History Tobacco Use Types Packs/Day [...] recollection if clinically indicated. 12/12/2024 10:31 AM [facility] Urine Urine specimen obtained by clean catch procedure / Unknown 12/10/2024 3:10 PM EDT 12/11/2024 9:03 AM EDT us Farideh Garcia MD LAB MICROBIOLOGY - GENERAL ORDER ITZEL Final Result [facility] [address] [place] [address], [place] [phone] * (ABNORMAL) Urinalysis with reflex microscopic and culture (12/10/2024 3:10 PM EDT) Specific [place] Urine 1.020 1.003 - 1.030 LAB URINALYSIS - AUTOMATED METHOD 12/11/2024 9:03 AM [facility] pH, Urine 7.0 5.0 - 8.0 pH LAB URINALYSIS - AUTOMATED METHOD 12/11/2024 9:03 AM [facility] Leukocytes, Urine Trace(A) Negative LAB URINALYSIS - AUTOMATED METHOD 12/11/2024 9:03 AM [facility] Nitrite, Urine Positive(A) Negative LAB URINALYSIS - AUTOMATED METHOD 12/11/2024 9:03 AM [facility] Protein, Urine Negative <=Trace mg/dL LAB URINALYSIS - AUTOMATED METHOD 12/11/2024 9:03 AM [facility] Glucose, Urine Negative Negative mg/dL LAB URINALYSIS - AUTOMATED METHOD 12/11/2024 9:03 AM [facility] Ketones, Urine Negative Negative mg/dL LAB URINALYSIS - AUTOMATED METHOD 12/11/2024 9:03 AM [facility] Urobilinogen , Urine 0.2 0.2 - 1.0 mg/dL LAB URINALYSIS - AUTOMATED METHOD 12/11/2024 9:03 AM [facility] Bilirubin, Urine Negative Negative LAB URINALYSIS - AUTOMATED METHOD 12/11/2024 9:03 AM EDT [facility] Blood, Urine Negative Negative LAB URINALYSIS - AUTOMATED METHOD 12/11/2024 9:03 AM [facility] RBC, Urine 7.0(H) 0 - 4 /HPF LAB URINALYSIS - AUTOMATED METHOD 12/11/2024 9:03 AM [facility] WBC, Urine 3.8 0 - 4 /HPF LAB URINALYSIS - AUTOMATED METHOD 12/11/2024 9:03 AM [facility] Squamous Epithelial, Urine 67(H) 0 - 60 /LPF LAB URINALYSIS - AUTOMATED METHOD 12/11/2024 9:03 AM [facility] Bacteria, Urine Many(A) Negative /HPF LAB URINALYSIS - AUTOMATED METHOD 12/11/2024 9:03 AM [facility] Hyaline Casts, Urine 2.0 0 - 3 /LPF LAB URINALYSIS - AUTOMATED METHOD 12/11/2024 9:03 AM [facility] Urine Urine specimen obtained by clean catch procedure / Unknown 12/10/2024 3:10 PM EDT 12/11/2024 8:32 AM EDT us Farideh Garcia MD LAB URINE ORDERABLES Final Resul t [facility] [address] [place] [address], * Kumari urine culture tube (12/10/2024 3:10 PM EDT) Extra Tube Hold for add-ons. 12/11/2024 10:01 AM EDT [facility] Comment:Auto resulted. Urine Urine specimen obtained by clean catch procedure / Unknown 12/10/2024 3:10 PM EDT 12/11/2024 8:32 AM EDT us Farideh Garcia MD LAB URINE ORDERABLES Final Resul t [facility] ([facility]) [facility] [address] [place] [address], documented in this encounter Visit Diagnoses Diagnosis Dysuria documented in this encounter Care Teams Jigsaw Operator Relationship Specialty Start Date End Date Farideh Garcia MD [address] [place] [address] [address] [place] [address] PCP - General Geriatric Medicine 09/16/24 documented as of this encounter
--- OUTSIDE RECORDS SUMMARY | 2025-07-22 12:55 | XMS_ITS | Clinical Summary ---
Author Organization [address] [facility] Address [address] [place] [address] Phone Care Team Providers Care Machine Overhauler Name Role Phone Farideh Garcia MD Primary Care Provider [phone] Social History Tobacco Use Types Packs/Day Years [...] Insurance MEDICARE MEDICAID - [place] Care Teams Machine Overhauler Relationship Specialty Start Date End Date Farideh Garcia MD [address] [place] [address] [address] [place] [address] PCP - General Geriatric Medicine 09/16/24
--- OUTSIDE RECORDS SUMMARY | 2025-07-22 12:55 | XMS_ITS | Encounter Summary ---
Author Organization [facility] Address [address] [place] [address] Care Team Providers Care Belt Polisher Name Role Phone Farideh Garcia MD Primary Care Provider [phone] Encounter Details Date Type Department Care Team (Late st Contact Info) Description 10/21/2024 Lab Requisition [facility] - Main Lab [address] [facility] [place] [address] Farideh Garcia MD [address] [place] [address] Vitamin D deficiency, unspecified Social History Tobacco [...] CHEMISTRY METHOD 10/22/2024 12:24 PM EST [facility] ([facility]) [facility] Blood Venous blood specimen / Unknown Venipuncture / Unknown 10/22/2024 5:45 AM EST 10/22/2024 11:10 AM EST us Farideh Garcia MD LAB BLOOD ORDERABLES Final Resul t [facility] ([facility] LAB [address] [place] [address], documented in this encounter Visit Diagnoses Diagnosis Vitamin D deficiency, unspecified documented in this encounter Care Teams Belt Polisher Relationship Specialty Start Date End Date Farideh Garcia MD [address] [place] [address] [address] [place] [address] PCP - General Geriatric Medicine 09/16/24 documented as of this encounter
--- OUTSIDE RECORDS SUMMARY | 2025-07-22 12:55 | XMS_ITS | Encounter Summary ---
Author Organization [facility] Address [address] [place] [address] Care Team Providers Care Presser And Blocker Knitted Goods Name Role Phone Farideh Garcia MD Primary Care Provider [phone] Encounter Details Date Type Department Care Team (Late st Contact Info) Description 09/23/2024 Lab Requisition [facility] - Main Lab 299 [facility] [place] [address] Kris Osorio MD [address] [place] [id number] Benign prostatic hyperplasia without lower urinary tract [...] LAB CHEMISTRY METHOD 09/24/2024 11:13 AM EST [facility] Blood Venous blood specimen / Unknown Venipuncture / Unknown 09/24/2024 6:55 AM EST 09/24/2024 10:15 AM EST Kris Osorio MD LAB BLOOD ORDERABLES Final Res ult Performing Organization Address [facility]/ZIP Co de Phone Number [facility] [address] [place] [address], * Magnesium (09/24/2024 6:55 AM EST) Pathologist [facility] Magnesium 2.3 1.9 - 2.6 mg/dL LAB CHEMISTRY METHOD 09/24/2024 11:04 AM EST [facility] Blood Venous blood specimen / Unknown Venipuncture / Unknown 09/24/2024 6:55 AM EST 09/24/2024 10:15 AM EST Kris Osorio MD LAB BLOOD ORDERABLES Final Res ult [facility] [address] [place] [address], * (ABNORMAL) Folate (09/24/2024 6:55 AM EST) Pathologist [facility] Folate >20.0(H) 2.8 - 17.0 ng/ml LAB CHEMISTRY METHOD 09/24/2024 11:15 AM EST [facility] Blood Venous blood specimen / Unknown Venipuncture / Unknown 09/24/2024 6:55 AM EST 09/24/2024 10:15 AM EST Kris Osorio MD LAB BLOOD ORDERABLES Final Res ult [facility] [address] [place] [address], [place] [phone] * (ABNORMAL) Comprehensive metabolic panel (09/24/2024 6:55 AM EST) Sodium 139 133 - 145 mmol/L LAB CHEMISTRY METHOD 09/24/2024 11:15 AM [facility] Potassium 3.9 3.5 - 5.5 mmol/L LAB CHEMISTRY METHOD 09/24/2024 11:15 AM [facility] Chloride 103 96 - 110 mmol/L LAB CHEMISTRY METHOD 09/24/2024 11:15 AM [facility] CO2 33(H) 21 - 32 mmol/L LAB CHEMISTRY METHOD 09/24/2024 11:15 AM [facility] Anion Gap 3 3 - 11 LAB CHEMISTRY METHOD 09/24/2024 11:15 AM [facility] Glucose 104(H) 70 - 100 mg/dL LAB CHEMISTRY METHOD 09/24/2024 11:15 AM [facility] BUN 17 5 - 25 mg/dL LAB CHEMISTRY METHOD 09/24/2024 11:15 AM [facility] Creatinine 0.57(L) 0.70 - 1.30 mg/dL LAB CHEMISTRY METHOD 09/24/2024 11:15 AM [facility] eGFR 102 >=60 mL/min/1. 73m2 LAB CHEMISTRY METHOD 09/24/2024 11:15 AM [facility] Comment:Calculation based on the Chronic Kidney Disease Epidemiology Collaboration (CKD-EPI) equation refit without adjustment for race. BUN/Creatinine Ratio 29.8 LAB CHEMISTRY METHOD 09/24/2024 11:15 AM [facility] Calcium 8.7 8.5 - 10.5 mg/dL LAB CHEMISTRY METHOD 09/24/2024 11:15 AM [facility] AST (SGOT) 21 10 - 42 unit/L LAB CHEMISTRY METHOD 09/24/2024 11:15 AM [facility] ALT (SGPT) 38 10 - 60 unit/L LAB CHEMISTRY METHOD 09/24/2024 11:15 AM [facility] Alkaline Phosphatase 102 42 - 121 unit/L LAB CHEMISTRY METHOD 09/24/2024 11:15 AM [facility] Total Protein 6.0 6.0 - 8.0 g/dL LAB CHEMISTRY METHOD 09/24/2024 11:15 AM [facility] Albumin 3.3 3.2 - 5.0 g/dL LAB CHEMISTRY METHOD 09/24/2024 11:15 AM [facility] Total Bilirubin 0.2 0.0 - 1.4 mg/dL LAB CHEMISTRY METHOD 09/24/2024 11:15 AM [facility] Blood Venous blood specimen / Unknown Venipuncture / Unknown 09/24/2024 6:55 AM EST 09/24/2024 10:15 AM EST us Kris Osorio MD LAB BLOOD ORDERABLES Final Res ult [facility] [address] [place] [address], * (ABNORMAL) Complete blood count (09/24/2024 6:55 AM EST) WBC 8.9 4.8 - 10.8 K/mcL LAB HEMETOLOGY METHOD 09/24/2024 10:37 AM [facility] RBC 4.60 4.50 - 5.50 M/mcL LAB HEMETOLOGY METHOD 09/24/2024 10:37 AM [facility] Hemoglobin 12.3(L) 13.5 - 17.5 g/dL LAB HEMETOLOGY METHOD 09/24/2024 10:37 AM [facility] Hematocrit 38.7(L) 42.0 - 54.0 % LAB HEMETOLOGY METHOD 09/24/2024 10:37 AM [facility] MCV 84.7 79.0 - 98.0 FL LAB HEMETOLOGY METHOD 09/24/2024 10:37 AM [facility] MCH 26.9(L) 27.0 - 32.0 pcg LAB HEMETOLOGY METHOD 09/24/2024 10:37 AM [facility] MCHC 31.8(L) 32.0 - 37.0 g/dL LAB HEMETOLOGY METHOD 09/24/2024 10:37 AM [facility] RDW 13.7 11.0 - 15.0 % LAB HEMETOLOGY METHOD 09/24/2024 10:37 AM [facility] Platelets 194 130 - 400 K/[facility] LAB HEMETOLOGY METHOD 09/24/2024 10:37 AM [facility] MPV 10.3 7.0 - 11.0 FL LAB HEMETOLOGY METHOD 09/24/2024 10:37 AM [facility] NRBC 0.2 <1.0 % LAB HEMETOLOGY METHOD 09/24/2024 10:37 AM [facility] NRBC Absolute 0.02 <0.10 K/[facility] LAB HEMETOLOGY METHOD 09/24/2024 10:37 AM [facility] Blood Venous blood specimen / Unknown Venipuncture / Unknown 09/24/2024 6:55 AM EST 09/24/2024 10:15 AM EST Kris Osorio MD LAB BLOOD ORDERABLES Final Res [facility] [address] [place] [address], documented in this encounter Visit Diagnoses Diagnosis Benign prostatic hyperplasia without lower urinary tract symptoms Vitamin D deficiency, unspecified Essential (primary) hypertension Unspecified essential hypertension documented in this encounter Care Teams Presser And Blocker Knitted Goods Relationship Specialty Start Date End Date Farideh Garcia MD [address] [place] [address] [address] [place] [address] PCP - General Geriatric Medicine 09/16/24 documented as of this encounter
--- OUTSIDE RECORDS SUMMARY | 2025-07-22 12:55 | XMS_ITS | Encounter Summary ---
Author Organization [facility] Address [address] [place] [address] Care Team Providers Care Reproduction Machine Loader Name Role Phone Farideh Garcia MD Primary Care Provider [phone] Encounter Details Date Type Department Care Team (Late st Contact Info) Description 02/06/2025 Lab Requisition [facility] - Main Lab 299 [facility] [place] [address] Farideh Garcia MD [address] [place] [address] Weakness Social History Tobacco Use Types Packs/Day [...] mmol/L LAB CHEMISTRY METHOD 02/06/2025 11:08 AM [facility] CO2 31 21 - 32 mmol/L LAB CHEMISTRY METHOD 02/06/2025 11:08 AM [facility] Anion Gap 6 3 - 11 LAB CHEMISTRY METHOD 02/06/2025 11:08 AM [facility] Glucose 82 70 - 100 mg/dL LAB CHEMISTRY METHOD 02/06/2025 11:08 AM [facility] BUN 11 5 - 25 mg/dL LAB CHEMISTRY METHOD 02/06/2025 11:08 AM [facility] Creatinine 0.61(L) 0.70 - 1.30 mg/dL LAB CHEMISTRY METHOD 02/06/2025 11:08 AM [facility] eGFR 100 >=60 mL/min/1. 73m2 LAB CHEMISTRY METHOD 02/06/2025 11:08 AM [facility] Comment:Calculation based on the Chronic Kidney Disease Epidemiology Collaboration (CKD-EPI) equation refit without adjustment for race. BUN/Creatinine Ratio 18.0 LAB CHEMISTRY METHOD 02/06/2025 11:08 AM [facility] Calcium 8.5 8.5 - 10.5 mg/dL LAB CHEMISTRY METHOD 02/06/2025 11:08 AM [facility] Blood Venous blood specimen / Unknown Venipuncture / Unknown 02/06/2025 5:45 AM EDT 02/06/2025 9:25 AM EDT us Farideh Garcia MD LAB BLOOD ORDERABLES Final Resul t [facility] [address] [place] [address], * (ABNORMAL) Complete blood count (02/06/2025 5:45 AM EDT) WBC 7.5 4.8 - 10.8 K/mcL LAB HEMETOLOGY METHOD 02/06/2025 10:51 AM [facility] RBC 4.70 4.50 - 5.50 M/mcL LAB HEMETOLOGY METHOD 02/06/2025 10:51 AM [facility] Hemoglobin 12.5(L) 13.5 - 17.5 g/dL LAB HEMETOLOGY METHOD 02/06/2025 10:51 AM [facility] Hematocrit 39.9(L) 42.0 - 54.0 % LAB HEMETOLOGY METHOD 02/06/2025 10:51 AM [facility] MCV 84.2 79.0 - 98.0 FL LAB HEMETOLOGY METHOD 02/06/2025 10:51 AM [facility] MCH 26.4(L) 27.0 - 32.0 pcg LAB HEMETOLOGY METHOD 02/06/2025 10:51 AM [facility] MCHC 31.3(L) 32.0 - 37.0 g/dL LAB HEMETOLOGY METHOD 02/06/2025 10:51 AM [facility] RDW 15.2(H) 11.0 - 15.0 % LAB HEMETOLOGY METHOD 02/06/2025 10:51 AM [facility] Platelets 184 130 - 400 K/mcL LAB HEMETOLOGY METHOD 02/06/2025 10:51 AM [facility] MPV 9.8 7.0 - 11.0 FL LAB HEMETOLOGY METHOD 02/06/2025 10:51 AM [facility] NRBC 0.0 <1.0 % LAB HEMETOLOGY METHOD 02/06/2025 10:51 AM [facility] NRBC Absolute 0.00 <0.10 K/mcL LAB HEMETOLOGY METHOD 02/06/2025 10:51 AM [facility] Blood Venous blood specimen / Unknown Venipuncture / Unknown 02/06/2025 5:45 AM EDT 02/06/2025 9:25 AM EDT Farideh Garcia MD LAB BLOOD ORDERABLES Final Resul t [facility] [address] [place] [address], documented in this encounter Visit Diagnoses Diagnosis Weakness Other malaise and fatigue documented in this encounter Care Teams Reproduction Machine Loader Relationship Specialty Start Date End Date Farideh Garcia MD [address] [place] [address] [address] [place] [address] PCP - General Geriatric Medicine 09/16/24 documented as of this encounter
--- OUTSIDE RECORDS SUMMARY | 2025-07-22 12:55 | XMS_ITS | Encounter Summary ---
Author Organization [facility] Address [address] [place] [address] Care Team Providers Care Canceling And Cutting Control Clerk Name Role Phone Farideh Garcia MD Primary Care Provider [phone] Encounter Details Date Type Department Care Team (Late st Contact Info) Description 08/21/2024 Lab Requisition [facility] - Main Lab [address] [place] [address] Kris Osorio MD [address] [place] [id number] Essential (primary) hypertension Social History Tobacco Use [...] LAB CHEMISTRY METHOD 08/22/2024 10:42 AM EST [facility] Potassium 3.5 3.5 - 5.5 mmol/L LAB CHEMISTRY METHOD 08/22/2024 10:42 AM EST [facility] Chloride 105 96 - 110 mmol/L LAB CHEMISTRY METHOD 08/22/2024 10:42 AM EST [facility] CO2 31 21 - 32 mmol/L LAB CHEMISTRY METHOD 08/22/2024 10:42 AM [facility] Anion Gap 6 3 - 11 LAB CHEMISTRY METHOD 08/22/2024 10:42 AM [facility] Glucose 124(H) 70 - 100 mg/dL LAB CHEMISTRY METHOD 08/22/2024 10:42 AM [facility] BUN 16 5 - 25 mg/dL LAB CHEMISTRY METHOD 08/22/2024 10:42 AM [facility] Creatinine 0.61(L) 0.70 - 1.30 mg/dL LAB CHEMISTRY METHOD 08/22/2024 10:42 AM [facility] eGFR 100 >=60 mL/min/1. 73m2 LAB CHEMISTRY METHOD 08/22/2024 10:42 AM [facility] Comment:Calculation based on the Chronic Kidney Disease Epidemiology Collaboration (CKD-EPI) equation refit without adjustment for race. BUN/Creatinine Ratio 26.2 LAB CHEMISTRY METHOD 08/22/2024 10:42 AM [facility] Calcium 8.4(L) 8.5 - 10.5 mg/dL LAB CHEMISTRY METHOD 08/22/2024 10:42 AM [facility] Blood Venous blood specimen / Unknown Venipuncture / Unknown 08/22/2024 5:29 AM EST 08/22/2024 10:05 AM EST us Kris Osorio MD LAB BLOOD ORDERABLES Final Res ult [facility] [address] [place] [address], documented in this encounter Visit Diagnoses Diagnosis Essential (primary) hypertension Unspecified essential hypertension documented in this encounter Additional Health Concerns Infection Onset Date Last Indicated Resolved Time Respiratory Rule-Out 09/16/2024 09/15/2024 025 12:35 PM EST documented as of this encounter Care Teams Canceling And Cutting Control Clerk Relationship Specialty Start Date End Date Farideh Garcia MD [address] [facility] [address] [place] [address] PCP - General Geriatric Medicine 09/16/24 documented as of this encounter
--- OUTSIDE RECORDS SUMMARY | 2025-07-22 12:55 | XMS_ITS | Encounter Summary ---
Author Organization [facility] Address [address] [place] [address] Care Team Providers Care Vocational Technical Education Teacher Name Role Phone Farideh Garcia MD Primary Care Provider [phone] Encounter Details Date Type Department Care Team (Late st Contact Info) Description 09/16/2024 Lab Requisition [facility] - Main Lab 299 [facility] [place] [address] Farideh Garcia MD [address] [place] [address] Shortness of breath; Acute cough Social History [...] Procedure Name Priority Date/Time Associated Diagnosis Comments [id number], RSV, FLU A AND B QUALITATIVE RT-PCR, LOCAL REFERENCE LAB Routine 09/15/2024 12:00 PM EST Shortness of breath Acute cough documented in this encounter Results * [id number], RSV, Influenza A and B qualitative RT-PCR (09/15/2024 12:00 PM EST) SARS COV-2 Not Detected Not Detected LAB MOLECULAR DIAGNOSTICS METHOD 09/16/2024 12:35 PM EST [facility] LAB Comment: Disclaimer: The manner in which this information is used to guide patient care is the responsibility of the healthcare provider. Testing was performed using the [employer] m SARS-CoV-2 test. This test has been [...] for Healthcare Providers can be found at: https://www.fda.gov/media/057194/download Fact sheet for Patients can be found at: https://www.fda.gov/media/699585/download Influenza A PCR Not Detected Not Detected LAB MOLECULAR DIAGNOSTICS METHOD 09/16/2024 12:35 PM EST [facility] Influenza B PCR Not Detected Not Detected LAB MOLECULAR DIAGNOSTICS METHOD 09/16/2024 12:35 PM [facility] RSV PCR Not Detected Not Detected LAB MOLECULAR DIAGNOSTICS METHOD 09/16/2024 12:35 PM [facility] Swab Nasopharyngeal structure / Unknown 09/15/2024 12:00 PM EST 09/16/2024 9:43 AM EST Farideh Garcia MD LAB MICROBIOLOGY - GENERAL ORDER ITZEL Final Result [facility] [address] [place] [address], documented in this encounter Visit Diagnoses Diagnosis Shortness of breath Acute cough documented in this encounter Additional Health Concerns Infection Onset Date Last Indicated Resolved Time Respiratory Rule-Out 09/16/2024 09/15/2024 025 12:35 PM EST documented as of this encounter Care Teams Vocational Technical Education Teacher Relationship Specialty Start Date End Date Farideh Garcia MD [address] [facility] [address] [place] [address] PCP - General Geriatric Medicine 09/16/24 documented as of this encounter
--- OUTSIDE RECORDS SUMMARY | 2025-07-22 12:55 | XMS_ITS | Encounter Summary ---
Author Organization [facility] Address [address] [place] [address] Care Team Providers Care Restaurant Lead Name Role Phone Farideh Garcia MD Primary Care Provider [phone] Encounter Details Date Type Department Care Team (Late st Contact Info) Description 12/15/2024 Lab Requisition [facility] - Main Lab 299 [facility] [place] [address] Farideh Garcia MD [address] [place] [address] Frequency of micturition Social History Tobacco Use [...] reflex microscopic (12/14/2024 1:00 PM EDT) Specific Weinert Urine 1.020 1.003 - 1.030 LAB URINALYSIS - AUTOMATED METHOD 12/15/2024 12:12 PM EDT [facility] pH, Urine 8.0 5.0 - 8.0 pH LAB URINALYSIS - AUTOMATED METHOD 12/15/2024 12:12 PM [facility] Leukocytes, Urine Trace(A) Negative LAB URINALYSIS - AUTOMATED METHOD 12/15/2024 12:12 PM [facility] Nitrite, Urine Negative Negative LAB URINALYSIS - AUTOMATED METHOD 12/15/2024 12:12 PM [facility] Protein, Urine Trace <=Trace mg/dL LAB URINALYSIS - AUTOMATED METHOD 12/15/2024 12:12 PM [facility] Glucose, Urine Negative Negative mg/dL LAB URINALYSIS - AUTOMATED METHOD 12/15/2024 12:12 PM [facility] Ketones, Urine Trace(A) Negative mg/dL LAB URINALYSIS - AUTOMATED METHOD 12/15/2024 12:12 PM [facility] Urobilinogen, Urine 2.0(A) 0.2 - 1.0 mg/dL LAB URINALYSIS - AUTOMATED METHOD 12/15/2024 12:12 PM [facility] Bilirubin, Urine Negative Negative LAB URINALYSIS - AUTOMATED METHOD 12/15/2024 12:12 PM [facility] Blood, Urine Negative Negative LAB URINALYSIS - AUTOMATED METHOD 12/15/2024 12:12 PM [facility] RBC, Urine 4.8(H) 0 - 4 /HPF LAB URINALYSIS - AUTOMATED METHOD 12/15/2024 12:12 PM [facility] WBC, Urine 0.9 0 - 4 /HPF LAB URINALYSIS - AUTOMATED METHOD 12/15/2024 12:12 PM [facility] Squamous Epithelial, Urine 15 0 - 60 /LPF LAB URINALYSIS - AUTOMATED METHOD 12/15/2024 12:12 PM [facility] Bacteria, Urine Negative Negative /HPF LAB URINALYSIS - AUTOMATED METHOD 12/15/2024 12:12 PM EDT [facility] Hyaline Casts, Urine 0.0 0 - 3 /LPF LAB URINALYSIS - AUTOMATED METHOD 12/15/2024 12:12 PM EDT [facility] Urine Urine specimen from urethra / Unknown Non-blood Collection / Unknown 12/14/2024 1:00 PM EDT 12/15/2024 11:50 AM EDT us Farideh Garcia MD LAB URINE ORDERABLES Final Resul t [facility] [address] [place] [address], * (ABNORMAL) Culture urine (12/14/2024 1:00 PM EDT) Culture, Urine 10,000-49,000 CFU/mL Proteus mirabilis(A) SHANIA 12/19/2024 8:39 AM EDT [facility] Comment: Edited result: Previously reported as Proteus species on 12/18/2024 at 1125 EDT. Culture, Urine 10,000-49,000 CFU/mL Morganella morganii ssp morganii(A) SHANIA 12/19/2024 8:39 AM EDT [facility] Comment: The organism value [...] GENERAL ORDER ITZEL Final Result [facility] [address] [place] [address], documented in this encounter Visit Diagnoses Diagnosis Frequency of micturition Urinary frequency documented in this encounter Care Teams Restaurant Lead Relationship Specialty Start Date End Date Farideh Garcia MD [address] [place] [address] [address] [place] [address] PCP - General Geriatric Medicine 09/16/24 documented as of this encounter
--- OUTSIDE RECORDS SUMMARY | 2025-08-19 19:00 | XMS_ITS | Clinical Summary ---
Author Organization Unknown Care Team Providers Care Client Program Manager Name Role Phone LOKI MILES MD, MICHA Unavailable Unavailable SAUL URIAS, DILIP Unavailable Unavailable Payers Payer Name Policy Type Policy Number Effective Date Expira tion Date MEDICARE - NGS [place] - [place] [id number] Problems Condition Name Condition Details Condition Category Status Onset Date Resolution Date Last Treatment Date Treating Clinician Comments ENCOUNTER FOR OTHER ORTHOPEDIC AFTERCARE Active 08-20 00:00: 00 SPINAL STENOSIS, CERVICAL REGION Active 08-20 00:00: 00 PERIPHERAL VASCULAR DISEASE, UNSPECIFIED Active 08-20 00:00: 00 ESSENTIAL (PRIMARY) HYPERTENSION Active 08-20 00:00: 00 MAJOR DEPRESSIVE DISORDER, SINGLE EPISODE, UNSPECIFIED Active 08-20 00:00: 00 SPINAL STENOSIS, LUMBAR REGION WITHOUT NEUROGENIC PEGGY Active 08-20 00:00: 00 ANXIETY DISORDER, UNSPECIFIED Active 08-20 00:00: 00 OTHER CERVICAL DISC DEGENERATION , UNSP CERVICAL REGION Active 08-20 00:00: 00 FIBROMYALGIA Active 08-20 00:00: 00 INSOMNIA, UNSPECIFIED Active 08-20 00:00: 00 Oth intvrt disc degen, 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 Active 08-20 00:00: 00 PRSNL HX OF TIA (TIA), AND CEREB INFRC W/O RESID DEFICITS Active 08-20 00:00: 00 PERSONAL HISTORY OF COVID-19 Active 08-20 00:00: 00 OTHER LEATHER SCRUBBER (CURRENT) DRUG THERAPY Active 08-20 00:00: 00 Problems related to health literacy Active 08-20 00:00: 00 GASTRO-ESOPH AGEAL REFLUX DISEASE WITHOUT ESOPHAGITIS Active 08-20 00:00: 00 SOCIAL EXCLUSION AND REJECTION Active 08-20 00:00: 00 DEPENDENCE ON WHEELCHAIR Active 08-20 00:00: 00 Allergies, Adverse Reactions, Alerts Allergy Name Allergy Type Status Severity Reaction(s) Onset Date Inactive Date Treating Clinician Comments PENICILLIN Propensity to adverse reactions Active 2024-08 15:33: 00 TRAMADOL Propensity to adverse reactions Active 2024-08 15:33: 09 Medications Ordered Medication Name Filled Medication Name Start Date Stop Date Current Medication? Ordering Clinician Indication Dosage Frequency Signature (SIG) Comments Components sulfamethox azole 800 mg-trimetho prim 160 mg tablet 2024-08 00:00: 00 06-22 00:00 :00 No [id number] Per instruc tions Per instructio ns (route: oral) Med Classific ation: Anti-Infe ctive Agents pantoprazol e 40 mg tablet,jas yed release 2024-08 00:00: 00 06-22 00:00 :00 No [id number] Per instruc tions Per instructio ns (route: oral) Med Classific ation: Gastroint estinal Therapy Agents pregabalin 75 mg capsule 2024-08 00:00: 00 06-22 00:00 :00 No [id number] Per instruc tions Per instructio ns (route: oral) Med Classific ation: Central Nervous System Agents acetaminoph en 500 mg tablet 2024-08 00:00: 00 06-22 00:00 :00 No [id number] Per instruc tions Per instructio ns (route: oral) Med Classific ation: Analgesic , Anti-infl ammatory or Antipyret ic amlodipine 5 mg tablet 2024-08 00:00: 00 06-22 00:00 :00 No [id number] Per instruc tions Per instructio ns (route: oral) Med Classific ation: Cardiovas cular Therapy Agents docusate sodium 100 mg capsule 2024-08 00:00: 00 06-22 00:00 :00 No [id number] Per instruc tions Per instructio ns (route: oral) Med Classific ation: Gastroint estinal Therapy Agents duloxetine 30 mg capsule,del ayed release 2024-08 00:00: 00 06-22 00:00 :00 No [id number] Per instruc tions Per instructio ns (route: oral) Med Classific ation: Central Nervous System Agents finasteride 5 mg tablet 2024-08 00:00: 00 06-22 00:00 :00 No [id number] Per instruc tions Per instructio ns (route: oral) Med Classific ation: Genitouri nary Therapy magnesium oxide 400 mg (241.3 mg magnesium) tablet 2024-08 00:00: 00 06-22 00:00 :00 No [id number] Per instruc tions Per instructio ns (route: oral) Med Classific ation: Electroly te Balance-N utritiona l Products senna 8.6 mg tablet 2024-08 00:00: 00 06-22 00:00 :00 No [id number] Per instruc tions Per instructio ns (route: oral) Med Classific ation: Gastroint estinal Therapy Agents terazosin 2 mg capsule 2024-08 00:00: 00 06-22 00:00 :00 No [id number] Per instruc tions Per instructio ns (route: oral) Med Classific ation: Cardiovas cular Therapy Agents baclofen 20 mg tablet 2024-08 00:00: 00 06-22 00:00 :00 No [id number] Per instruc tions Per instructio ns (route: oral) Med Classific ation: Locomotor System acetaminoph en 500 mg tablet 2024-08 00:00: 00 Yes [id number] 2 tablet EVERY 8 HOURS 2 tablet EVERY 8 HOURS (route: oral) Med Classific ation: Analgesic , Anti-infl ammatory or Antipyret ic amlodipine 5 mg tablet 2024-08 00:00: 00 Yes [id number] 1 tablet DAILY 1 tablet DAILY (route: oral) Med Classific ation: Cardiovas cular Therapy Agents Artificial Tears (PF) 0.1 %-0.3 % drops in a dropperette 2024-08 00:00: 00 Yes [id number] 2 dropper ette EVERY 2 HOURS 2 dropperett e EVERY 2 HOURS (route: ophthalmic (eye)) Med Classific ation: Ophthalmi c Agents baclofen 20 mg tablet 2024-08 00:00: 00 Yes [id number] 0.5 tablet 3 TIMES DAILY 0.5 tablet 3 TIMES DAILY (route: oral) Med Classific ation: Locomotor System chlorhexidi ne gluconate 0.12 % mouthwash 2024-08 00:00: 00 Yes [id number] 20 mL BEDTIME 20 mL BEDTIME (route: mucous membrane) Med Classific ation: Mouth-Thr oat-Denta l - Preparati ons diclofenac 1 % topical gel 2024-08 00:00: 00 Yes [id number] Per instruc tions NEEDED Per instructio ns NEEDED (route: topical) Med Classific ation: Dermatolo gical docusate sodium 100 mg capsule 2024-08 00:00: 00 Yes [id number] 2 capsule 2 TIMES DAILY 2 capsule 2 TIMES DAILY (route: oral) Med Classific ation: Gastroint estinal Therapy Agents duloxetine 30 mg capsule,del ayed release 2024-08 00:00: 00 Yes [id number] 1 capsule 2 TIMES DAILY 1 capsule 2 TIMES DAILY (route: oral) Med Classific ation: Central Nervous System Agents finasteride 5 mg tablet 2024-08 00:00: 00 Yes [id number] 1 tablet BEDTIME 1 tablet BEDTIME (route: oral) Med Classific ation: Genitouri nary Therapy fluticasone propionate 50 mcg/actuati on nasal spray,suspe nsion 2024-08 00:00: 00 Yes [id number] 2 spray BEDTIME 2 spray BEDTIME (route: nasal) Med Classific ation: Respirato ry Therapy Agents guaifenesin 100 mg/5 mL oral liquid 2024-08 00:00: 00 Yes [id number] 20 mL EVERY 6 HOURS 20 mL EVERY 6 HOURS (route: oral) Med Classific ation: Respirato ry Therapy Agents magnesium oxide 400 mg (241.3 mg magnesium) tablet 2024-08 00:00: 00 Yes [id number] 1 tablet DAILY 1 tablet DAILY (route: oral) Med Classific ation: Electroly te Balance-N utritiona l Products Milk of Magnesia 400 mg/5 mL oral suspension 2024-08 00:00: 00 Yes [id number] 30 mL DAILY 30 mL DAILY (route: oral) Med Classific ation: Gastroint estinal Therapy Agents mirtazapine 15 mg tablet 2024-08 00:00: 00 Yes [id number] 0.5 tablet BEDTIME 0.5 tablet BEDTIME (route: oral) Med Classific ation: Central Nervous System Agents oxycodone 5 mg tablet 2024-08 00:00: 00 Yes [id number] 1 tablet EVERY 8 HOURS 1 tablet EVERY 8 HOURS (route: oral) Med Classific ation: Analgesic , Anti-infl ammatory or Antipyret ic pantoprazol e 40 mg tablet,jas yed release 2024-08 00:00: 00 Yes [id number] 1 tablet 2 TIMES DAILY 1 tablet 2 TIMES DAILY (route: oral) Med Classific ation: Gastroint estinal Therapy Agents pregabalin 75 mg capsule 2024-08 00:00: 00 Yes [id number] 1 capsule 3 TIMES DAILY 1 capsule 3 TIMES DAILY (route: oral) Med Classific ation: Central Nervous System Agents sennosides 8.6 mg tablet 2024-08 00:00: 00 Yes [id number] 1 tablet BEDTIME 1 tablet BEDTIME (route: oral) Med Classific ation: Gastroint estinal Therapy Agents terazosin 2 mg capsule 2024-08 00:00: 00 Yes [id number] 2 capsule BEDTIME 2 capsule BEDTIME (route: oral) Med Classific ation: Cardiovas cular Therapy Agents Immunizations Ordered Immunization Name Filled Immunization Name Date Status Comments Refusal Reason INFLUENZA, TIV (INACTIVATED) 2025-06-18 00:00:00 Vital Signs Vital Name Observation Time Observation Value Commen ts Temperature 2025-07-21 10:47:00.000 98.7 [degF] Temperature 2025-07-13 11:30:00.000 98.2 [degF] Temperature 2025-07-06 11:23:00.000 97.8 [degF] Temperature 2025-06-29 11:34:00.000 97.7 [degF] Temperature 2025-06-22 14:22:00.000 98.1 [degF] Temperature 2025-06-19 12:12:00.000 98.6 [degF] BMI (%) 2025-06-22 14:22:00.000 29 kg/m2 BMI (%) 2025-06-19 12:12:00.000 38 kg/m2 Height 2025-06-22 14:22:00.000 66 [in_us] Height 2025-06-19 12:12:00.000 63 [in_us] Pulse 2025-07-21 10:47:00.000 75 /min Pulse 2025-07-13 11:30:00.000 65 /min Pulse 2025-07-06 11:23:00.000 78 /min Pulse 2025-06-29 11:34:00.000 73 /min Pulse 2025-06-22 14:22:00.000 78 /min Pulse 2025-06-19 12:12:00.000 75 /min O2 Saturation (%) 2025-07-21 10:47:00.000 93 % O2 Saturation (%) 2025-07-13 11:30:00.000 95 % O2 Saturation (%) 2025-07-06 11:23:00.000 93 % O2 Saturation (%) 2025-06-29 11:34:00.000 92 % O2 Saturation (%) 2025-06-19 12:12:00.000 86 % Respirations 2025-07-21 10:47:00.000 20 /min Respirations 2025-07-13 11:30:00.000 20 /min Respirations 2025-07-06 11:23:00.000 20 /min Respirations 2025-06-29 11:34:00.000 20 /min Respirations 2025-06-22 14:22:00.000 18 /min Respirations 2025-06-19 12:12:00.000 22 /min Weight (lbs) 2025-06-22 14:22:00.000 180 [lb_av] Weight (lbs) 2025-06-19 12:12:00.000 215 [lb_av] Systolic Blood Pressure 2025-07-21 10:47:00.000 150 mm [Hg] Systolic Blood Pressure 2025-07-13 11:30:00.000 156 mm [Hg] Systolic Blood Pressure 2025-07-06 11:23:00.000 140 mm [Hg] Systolic Blood Pressure 2025-06-29 11:34:00.000 154 mm [Hg] Systolic Blood Pressure 2025-06-22 14:22:00.000 124 mm [Hg] Systolic Blood Pressure 2025-06-19 12:12:00.000 130 mm [Hg] Diastolic Blood Pressure 2025-07-21 10:47:00.000 90 mm [Hg] Diastolic Blood Pressure 2025-07-13 11:30:00.000 90 mm [Hg] Diastolic Blood Pressure 2025-07-06 11:23:00.000 [...] MAINTAIN SITUATIONAL AWARENESS AND WILL NOTIFY CLINICAL PASTER HAT LINING AND PHYSICIAN/PROVIDER WITH ANY CHANGE IN CONDITION. [code = SKILLED NURSE TO PERFORM ENVIRONMENTAL SAFETY RISK ASSESSMENT AND FALL RISK ASSESSMENT AND PROVIDE INSTRUCTION TO IMPLEMENT ENVIRONMENTAL SAFETY AND FALL PREVENTION STRATEGIES THROUGHOUT THE CERTIFICATION PERIOD. SKILLED NURSE WILL MAINTAIN SITUATIONAL AWARENESS AND WILL NOTIFY CLINICAL PASTER HAT LINING AND PHYSICIAN/PROVIDER WITH ANY CHANGE IN CONDITION.] [...] <paragraph>[Visit Date: 2024 by DILIP HUGHES RN]:</paragraph><paragraph>SNV 07/20</paragraph><paragraph></paragraph><paragraph>ABNORMAL VITALS: VS WITHIN SET PARAMETERS </paragraph><paragraph></paragraph><paragraph>FALLS: DENIES FALLS</paragraph><paragraph></paragraph><paragraph>ABNORMAL PHYSICAL ASSESSMENT FINDINGS: CONCERN FOR URINARY RETENTION & CONSTIPATION </paragraph><paragraph></paragraph><paragraph>MEDICATION CHANGES: NO MED CHANGES</paragraph><paragraph></paragraph><paragraph>OBSERVATION AND ASSESSMENT PROVIDED: PATIENT A&OX4. CO 12/27 FIBROMYALGIA PAIN, EXPRESSED THIS TO STAFF, REQUESTED THEY GIVE HIM PRESCRIBED OXY AGAIN THIS MORNING THEY HAVE NOT BEEN GIVING IT. PATIENT HAS MINOR DYSPHAGIA. LUE CONTRACTED. MINIMAL TO NO MOVEMENT TO RUE. WEAKNESS TO BLLE. EQUAL STRENGTH. PATIENT WC BOUND. LIVES IN [place]. LS CLEAR ON RA. DENIES CP/PALPITATIONS/SOB/DIZZINESS. DENIES NEW NUMBNESS OR TINGLING TO ALL EXTREMITIES. NO OTHER NEURO DEFICITS FROM PATIENTS BASELINE. DENIES URINARY SYMPTOMS. LBM 07/20. DENIES N/V/D. SPOKE TO STAFF WHO STATED PT DAUGHTER WAS CONCERNED FOR URINARY RETENTION VS UTI. STAFF HE DOES NOT PEE OFTEN UNLESS INSTRUCTED TO, INCONTINENT AT TIMES. DID UA REAGENT STRIP WHICH WAS NEGATIVE. PATIENT ABLE TO PEE SMALL/MOD AMOUNT OF URINE FOR ME UPON REQUEST, NO RETENTION NOTED, NO S/S OF UTI. STAFF ALSO STATED HE IS CONSTIPATED AT TIMES, ABDOMEN SLIGHTLY DISTENDED THIS MORNING, PT AND STAFF STATED HE HAD BM YESTERDAY, BS ACTIVE, NO TENDERNESS UPON PALPATION. STAFF HAVE MIRALAX FOR PT PRN, NOT PRESCRIBED, REQUESTED VO FROM PCP OFFICE FOR MIRALAX DAILY TO PREVENT CONSTIPATION. MADE PCP OFFICE AWARE OF NEGATIVE REAGENT STRIP. </paragraph><paragraph></paragraph><paragraph>EDUCATION: EDUCATED ON S/S OF STROKE AND TO SEEK IMMEDIATE MEDICAL ATTENTION. EDUCATED ON PAIN RELIEF TECHNIQUES. EDUCATED ON S/S OF URINARY RETENTION</paragraph><paragraph></paragraph><paragraph>INTERVENTIONS NEEDED AT NEXT VISIT: NEURO ASSESSMENT, PAIN ASSESSMENT </paragraph><paragraph></paragraph><paragraph>NEXT MD APPOINTMENT: 07/22 PODIATRY </paragraph><paragraph></paragraph><paragraph>PT AND STAFF INSTRUCTED TO CALL [facility] WITH ANY QUESTIONS OR CONCERNS AND/OR CHANGES IN CONDITION, STATE UNDERSTANDING</paragraph> Encounters Start Date/Time End Date/Time Encounter Type Admission Type Attending Clinicians Care Facility Care Department Encounter ID Discharge Date Discharge Status Discharge Condition Discharge Reason Percent Goals Met 2025-06-22 00:00:00 2025-08-20 00:00:00 Outpatient NEW ADMISSION DILIP HUGHES [facility] [id number] 14.81
== END 2025-07-22 11:37 | disposition home or self-care (01) ==
LOC: HO.HPODS 10:59
PROVIDERS: PCP Internal Medicine; Visit Provider Student in an Organized Health Care Education/Training Program
DX: I69.351 Hemiplegia and hemiparesis following cerebral infarction affecting right dominant side (principal); L60.2 Onychogryphosis; I73.9 Peripheral vascular disease, unspecified
CPT/HCPCS: 99204

== ENCOUNTER → 2025-07-22 10:58 | Outpatient (BNVA) | payer MEDICARE, MEDICAID, SELFPAY | PROVIDERS: PCP Internal Medicine; Visit Provider Student in an Organized Health Care Education/Training Program | DX: L60.2 Onychogryphosis (principal); I73.9 Peripheral vascular disease, unspecified; I69.351 Hemiplegia and hemiparesis following cerebral infarction affecting right dominant side | CPT/HCPCS: 99202 ==

== ENCOUNTER 2025-07-24 13:02 | Outpatient (AMB) | payer MEDICARE, MEDICAID, SELFPAY ==
[2025-07-24 13:14] VITALS: BP 120/62; PULSE 68; O2SAT 94
--- NOTE | 2025-07-24 13:14 | MHC.PC.OV ---
Vital Signs 07/24/25 13:14 Height 5 ft 6 in BP 120/62 Blood Pressure Location Lt brachial Position Sitting Pulse 68 Pulse Source Pulse Oximeter Pulse Oximetry (%) 94 Oxygen Delivery Method Room Air Intake Visit Reasons: annual exam Fabricator Artificial Breast Required: No Accompanied by: Self / Same As Patient Allergies Penicillins Allergy (Severe, Verified 07/24/25 13:15) Rash tramadol Allergy (Unknown, Verified 07/24/25 13:15) inadequate response Medication List - Last Reconciled 07/24/25 by Juhi Meredith MD acetaminophen 1,000 mg (2 x 500 mg) PO TID 30 days amlodipine 5 mg PO DAILY 90 days baclofen 10 mg PO TID 30 days chlorhexidine gluconate 0.12% (Periogard) 20 mL buccal BEDTIME dextran 70-hypromellose (PF) 0.1-0.3 % (Artificial Tears (PF)) 2 drps ophthalmic (eye) Q2H PRN diclofenac sodium 1% 4 grams topical Q6H PRN docusate sodium (Colace) 200 mg (2 x 100 mg) PO BID duloxetine 30 mg PO BID finasteride 5 mg PO BEDTIME 90 days fluticasone propionate 50 mcg/actuation 2 sprays intranasal BEDTIME guaifenesin 400 mg PO Q6H PRN magnesium hydroxide (Milk of Magnesia) 30 mL PO DAILY PRN magnesium oxide 400 mg PO DAILY 90 days mirtazapine 7.5 mg (1/2 x 15 mg) PO BEDTIME oxycodone 5 mg PO Q8H PRN 30 days pantoprazole 40 mg PO BID@0630,1630 pregabalin 75 mg PO TID 30 days sennosides (senna) 8.6 mg PO BEDTIME 90 days terazosin 8 mg (4 x 2 mg) PO BEDTIME 90 days Tobacco use date assessed: 07/24/25 Fall risk assessment: No Falls in past year Last assessed Fall Risk: 07/24/25 Dental Screening Dental Screen Date: 07/24/25 Did you have a dental visit in the last 12 months?: Yes Did you have a dental problem in the last 6 months where you did not have access to dental care?: No Was dental information given to patient?: Patient has dentist HPI HPI Comments History of Present Illness Details The patient is a 74-year-old male with PMH of stroke w LLE wekness, spine problems c/b bilateral hand contractures, depression, adrenal nodule followed by endocrinology, BPH, and HTN presenting for an annual physical examination. He was moved to a [place] [facility] six months ago due weakness from stroke. The patient has a history of a stroke with LLE weakness. He developed bilateral hands contracture after a spine surgery. He underwent revision of spine surgery with no improvement in his contracture. He describes increased tightness in his hand since the surgery. He receives in-home physical therapy twice a week. His medical history is also significant for an adrenal nodule, for which he has an upcoming endocrinology appointment, and an enlarged prostate, with a pending urology appointment. He also has a history of a gastrointestinal bleed and has an upcoming appointment with a tea leaf reader. He reports new complaints of tender bumps inside his mouth, which he believes to be an infection. He also experiences difficulty sleeping at night due to his legs jerks. Recent lab results from June 19, including a CBC and CMP, were normal. He received his flu vaccine last week and is due for a tetanus shot. Colonoscopy screening is no longer recommended due to his age. The patient's medications include Tylenol, baclofen, milk of magnesia, Colace, Cymbalta (duloxetine), finasteride, Flonase, oxycodone, and diclofenac. [facility] Medical History History of blood transfusion (~03/27/25) History of GI bleed (~03/27/25) History of airway aspiration (~11/2024) Dysphagia History of stroke (~2021) Hx of varicose veins Depression COVID-19 Numbness HTN (hypertension) Spastic hemiparesis of left dominant side Spastic hemiplegia affecting right dominant side Spastic hemiparesis affecting dominant side Contracture, left hand Bilateral knee contractures Elevated PSA Moderate major depression Insomnia Fibromyalgia GERD (gastroesophageal reflux disease) Hypovitaminosis D Lumbar degenerative disc disease Surgical History Hx of spinal surgery (12/11/24) Hx of varicose vein ligation and stripping History of prostate surgery History of shoulder surgery History of laminectomy Family History Father Diabetes Hypertension Liver cancer Mother Diabetes Hypertension Stroke Other Substance use disorder Social History Household Members: Other Household Members Other:: detention Housing: House Housing Other:: detention Are you a primary medical care administrator to a significant other at home: No Do you presently have visiting nurse or other home services: Yes Alcohol intake: former Patient Tobacco Use Status: Former Tobacco user Tobacco use type: Cigarette Cigarettes Per Day: 3 e-Cigarette/Vaping Use: Never Used Second Hand Smoke Exposure: Yes Advance Directives Date on File: 09/06/22 service: No Current occupational status: disabled Cognitive needs: Yes (cane) Hearing needs: No Vision needs: Yes (reading glasses) Questionnaire Thrive Questionnaire Date Thrive assessed: 07/24/25 I am a: Parent/Caregiver What is your living situation today?: I have a steady place to live Within the past 12 months, did the food you bought not last and you didn't have the money to get more?: Never true Within the past 12 months, did you worry whether your food would run out before you got money to buy more?: Never true Do you have trouble paying for medicines?: No Do you have trouble getting transportation to medical appointments?: No Do you have trouble paying your heating and electricity bill?: No Do you have trouble taking care of your child, family member or friend?: No Do you have trouble with day-to-day activities such as bathing, preparing meals, shopping, managing finances, etc.?: Yes Are you currently unemployed and looking for a job?: Yes Are you interested in more education?: No Please select the resources that you would like help with: None Currently or been in a relationship where the following occur: I choose not to answer THRIVE Score: 0 FARHAT-7 AMB Questionnaire FARHAT-7 Date FARHAT - 7 assessed: 04/01/25 Source: Developed by Drs. Marek Sutton, Jaylyn Clark, Brennon Dockery and colleagues, with an educational adams from [employer] Review of Systems Const Details: Positives besides what was mentioned in HPI are in BOLD Constitutional: No Weight Change, No Fever, No Chills, No Night Sweats, No Fatigue, No Malaise ENT/Mouth: No Hearing Changes, No Ear Pain, No Nasal Congestion, No Sinus Pain, No Hoarseness, No sore throat, No Rhinorrhea, No Swallowing Difficulty Eyes: No Eye Pain, No Swelling, No Redness, No Foreign Body, No Discharge, No Vision Changes Cardiovascular: No Chest Pain, No SOB, No PND, No Dyspnea on Exertion, No Orthopnea, No Claudication, No Edema, No Palpitations Respiratory: No Cough, No Sputum, No Wheezing, No Smoke Exposure, No Dyspnea Gastrointestinal: No Nausea, No Vomiting, No Diarrhea, No Constipation, No Pain, No Heartburn, No Anorexia, No Dysphagia, No Hematochezia, No Melena, No Flatulence, No Jaundice Genitourinary: No Dysmenorrhea, No DUB, No Dyspareunia, No Dysuria, No Urinary Frequency, No Hematuria, No Urinary Incontinence, No Urgency, No Flank Pain, No Urinary Flow Changes, No Hesitancy Musculoskeletal: No Arthralgias, No Myalgias, No Joint Swelling, No Joint Stiffness, No Back Pain, No Neck Pain, No Injury History Skin: No Skin Lesions, No Pruritis, No Hair Changes, No Breast/Skin Changes, No Nipple Discharge Neuro: No Weakness, No Numbness, No Paresthesias, No Loss of Consciousness, No Syncope, No Dizziness, No Headache, No Coordination Changes, No Recent Falls Psych: No Anxiety/Panic, No Depression, No Insomnia, No Personality Changes, No Delusions, No Rumination, No SI/HI/AH/VH, No Social Issues, No Memory Changes, No Violence/Abuse Hx., No Eating Concerns Heme/Lymph: No Bruising, No Bleeding, No Transfusions History, No Lymphadenopathy Endocrine: No Polyuria, No Polydipsia, No Temperature Intolerance Physical exam (Primary Care) Vital Signs: Last Vital Signs Pulse 68 07/24/25 13:14 BP 120/62 07/24/25 13:14 Pulse Ox 94 07/24/25 13:14 Oxygen Delivery Method Room Air 07/24/25 13:14 Tobacco/Smoking Status: Tobacco use Status Tobacco use date assessed 07/24/25 07/24/25 13:19 Patient Tobacco Use Status Former Tobacco user 07/24/25 13:15 Tobacco use type Cigarette 07/24/25 13:15 e-Cigarette/Vaping Use Never Used 07/24/25 13:15 Thrive Assessment: Date of Thrive Assessment Date Thrive assessed 07/24/25 07/24/25 13:19 Currently or been in a relationship where the following occur: I choose not to answer Const Other: Pertinent findings are in BOLD GENERAL APPEARANCE NAD, activity normal for age, well developed/ well nourished, no cyanosis, pallor, or diaphoresis. EYES lids/conjunctiva normal. EARS/NOSE/THROAT Mucous membranes moist, nares normal, lips/teeth normal uvula midline without oral pharyngeal erythema, exudate or swelling TMs normal bilaterally. No lymphangitis/lymphedema. Mouth sores on lower lip. HEAD/NECK normocephalic atraumatic, no facial trauma, neck is supple. RESPIRATORY respiratory effort normal, speaks in full sentences, no tripod position, no accessory muscle use. Lungs clear to auscultation without rhonchi, wheezes, rales CARDIAC Regular rate and rhythm, no edema. ABDOMINAL Soft, ND/NT. No evidence of fluid wave. No pulsatile masses on exam, rebound tenderness, Sanchez sign or pain over Mcburney's point. MUSCLES/EXTREMITIES No abnormal range of motion, no swelling. Bilateral hand contractures. SKIN Warm, pink and dry. No rashes, dermatoses, petechiae or lesions. NEUROLOGICAL Speech is clear and appropriate. Normal level of consciousness. Gait and coordination are normal. 3/5 strength on RLE, 2/5 strength on LLE. PSYCH Normal mood and affect. Judgement/competence is appropriate Immunizations Boostrix Tdap 2.5 Lf unit-8 mcg-5 Lf/0.5 mL intramuscular syringe Performing Provider: Juhi Meredith MD [facility] [place] [facility] Administered by: Keesha Alanis LPN on 07/24/25 14:36 Dose Route Admin Location Dispensed Lot Number Expiration Date [facility] Survey Project Manager 0.5 mL IM Left Deltoid 0.5 mL [id number] 02/03/28 32140-532-15 [employer] Total Dispensed Waste 0.5 mL 0 % VIS Given Date VIS Provided VIS Publication Date 07/24/25 Single Vaccine 21 Eligibility Eligibility Date Funding Source Not [facility] Eligible 07/24/25 Private Coding Level of Care Code Est Pt Level 4 (80212) Est Pt Prev Care >65y(04166) Diagnoses Annual physical exam Z00.00 Essential hypertension I10 Adrenal nodule E27.9 Upper GI bleeding K92.2 Elevated PSA R97.20 Cerebrovascular accident (CVA), unspecified mechanism I63.9 CVA mechanism: unspecified Cervical spinal stenosis M48.02 S/P cervical spinal fusion Z98.1 Spasticity R25.2 Oral lesion K13.70 Bilateral impacted cerumen H61.23 Laterality: bilateral Anxiety F41.9 Time Spent (min) 50 Assessment & Plan Assessment & Plan (1) Annual physical exam: Code(s): Z00.00 - Encounter for general adult medical examination without abnormal findings Category: Medical Plan: CBC, CMP, Lipid panel, A1C, TSH w T4. Done recently. Shingles 2 doses when >50 yo. COVID: two doses. Pneumococcal: >50 yo. 18-49 with CKD, lung disease, weakened immune system, Heart disease, DM, cochlear implant. Completed. Flu vaccine: Got it last week. Tdap: every 10 years. Ordered today. NExt due 2034. Colonoscopy: 45-75. Aged out. AAA: 65 -75. Aged out[address] CT lun - 80. NI PSA: 50 -70 every two years. Aged out. HIV: ordered today. HCV: ordered today. (2) Essential hypertension: Code(s): I10 - Essential (primary) hypertension Category: Medical Plan: Continue Amlodipine. (3) Adrenal nodule: Code(s): E27.9 - Disorder of adrenal gland, unspecified Category: Medical Plan: Endocrinology on September 07. Undergoing W-U with endocrinology. (4) Upper GI bleeding: Code(s): K92.2 - Gastrointestinal hemorrhage, unspecified Category: Medical Plan: Gastroenterology on August 06. Continue Pantoprazole. (5) Elevated PSA: Code(s): R97.20 - Elevated prostate specific antigen [PSA] Category: Medical Plan: - Urology F-U on September 07. (6) Stroke: Comment: with LLE weakness. Code(s): I63.9 - Cerebral infarction, unspecified Category: Medical Qualifiers: CVA mechanism: unspecified Qualified Code(s): I63.9 - Cerebral infarction, unspecified Plan: Continue PT two times per week. (7) Cervical spinal stenosis: Code(s): M48.02 - Spinal stenosis, cervical region Category: Medical Plan: Same as under cervical spinal fusion. (8) S/P cervical spinal fusion: Code(s): Z98.1 - Arthrodesis status Category: Surgical Plan: F-U - outbound sales specialist on August 18. Continue PT at home. (9) Spasticity: Code(s): R25.2 - Cramp and spasm Category: Medical Plan: - The patient's dose of baclofen will be increased from 10 mg to 15 mg three times daily to manage muscle tightness. - The patient was cautioned about potential increased drowsiness from the new dose. - Continue with current in-home physical therapy. - The patient is scheduled to follow up with his library media specialist on August 18. - Oxycodone and pregabalin (Lyrica), were not refilled as it should be refilled by main PCP. Patient caregiver reports the patient has enough refills. (10) Oral lesion: Code(s): K13.70 - Unspecified lesions of oral mucosa Category: Medical Plan: - The lesions were examined and assessed as non-infectious, appearing either viral or like bony growths. - A prescription for was provided to be used as needed for pain and to help clean the area. - Antibiotics are not indicated at this time. (11) Cerumen impaction: Code(s): H61.20 - Impacted cerumen, unspecified ear Category: Medical Qualifiers: Laterality: bilateral Qualified Code(s): H61.23 - Impacted cerumen, bilateral Plan: - Debrox ear drops were prescribed for cerumen impaction in both ears. - The patient was instructed to place five drops in each ear once daily for four days. (12) Anxiety: Code(s): F41.9 - Anxiety disorder, unspecified Category: Medical Plan: Continue Cymbalta. F-U scheduled with Dr. Nichole Oct 05. Plan I explained to the patient and his caregiver that the bumps in his mouth do not appear to be an infection and therefore do not require antibiotics. I will prescribe a medicated mouthwash to help with any pain. We discussed his increased muscle tightness and weakness since his spine surgery, and to address this, I am increasing his baclofen dose to 15 mg three times daily, cautioning that this may cause drowsiness. I also noted that his ears are blocked with wax and prescribed Debrox drops with instructions for use. I reviewed his medication list and refilled most of his prescriptions. I explained that refills for controlled substances like oxycodone and Lyrica, as well as Cymbalta, should come from his primary prescriber, Dr. Vivas. We confirmed his numerous upcoming specialist appointments and reviewed the schedule. I recommended he also get an eye exam and schedule his next annual physical with Dr. Vivas for continuity. Finally, I informed him that an MA will administer a tetanus shot today and that I have ordered screening labs for HIV and Hepatitis C. Time spent 50 min. This includes chart review due to the patient long history, full physical exam, full ROS, writing notes, placing orders and filling out requested paperwork. Orders: Orders TDaP Immunization Today Z23 - Encounter for immunization Hepatitis C Antibody Reflex Today Z00.00 - Encounter for general adult medical examination without abnormal findings HIV Ab/Ag Today Z00.00 - Encounter for general adult medical examination without abnormal findings Medications: New duloxetine 30 mg PO BID 30 caps 3RF povidone-iodine 0.5% (Betadine) 1 ea mucous membrane BID 237 mL 0RF carbamide peroxide 6.5% (Debrox) 5 drps otic (ears) DAILY 15 mL 0RF 4 days pantoprazole 40 mg PO BID@0630,1630 30 tabs 3RF diclofenac sodium 1% apply to single knee, ankle, foot; for foot includes sole/toes/top of foot 4 grams topical Q6H PRN 100 grams 3RF Pain fluticasone propionate 50 mcg/actuation 2 sprays intranasal BEDTIME 16 grams 0RF Changed From baclofen 10 mg PO TID 30 days 90 tabs 0RF To baclofen 15 mg (1.5 x 10 mg) PO TID 135 tabs 0RF 30 days Refilled acetaminophen 1,000 mg (2 x 500 mg) PO TID 180 tabs 11RF pain 30 days docusate sodium (Colace) 200 mg (2 x 100 mg) PO BID 120 caps 0RF mirtazapine 7.5 mg (1/2 x 15 mg) PO BEDTIME 45 tabs 1RF pregabalin 75 mg PO TID 90 caps 0RF 30 days sennosides (senna) 8.6 mg PO BEDTIME 90 tabs 1RF 90 days terazosin 8 mg (4 x 2 mg) PO BEDTIME 360 caps 1RF 90 days amlodipine 5 mg PO DAILY 90 tabs 1RF 90 days baclofen 10 mg PO TID 30 days 90 tabs 0RF finasteride 5 mg PO BEDTIME 90 tabs 1RF 90 days
--- OUTSIDE RECORDS SUMMARY | 2025-07-24 17:00 | XMS_ITS | Clinical Summary ---
Author Organization [address] [facility] Address [address] [place] [address] Phone Care Team Providers Care Paste Mixer Name Role Phone Farideh Garcia MD Primary Care Provider [phone] Social History Tobacco Use Types Packs/Day Years [...] Insurance MEDICARE MEDICAID - [place] Care Teams Paste Mixer Relationship Specialty Start Date End Date Farideh Garcia MD [address] [place] [address] [address] [place] [address] PCP - General Geriatric Medicine 09/16/24
--- OUTSIDE RECORDS SUMMARY | 2025-07-24 17:00 | XMS_ITS | Encounter Summary ---
Author Organization [facility] Address [address] [place] [address] Care Team Providers Care Client Experience Specialist Name Role Phone Farideh Garcia MD Primary Care Provider [phone] Encounter Details Date Type Department Care Team (Late st Contact Info) Description 12/15/2024 Lab Requisition [facility] [address] [facility] [place] [address] Farideh Garcia MD [address] [place] [address] Frequency of micturition Social History Tobacco Use [...] reflex microscopic (12/14/2024 1:00 PM EDT) Specific [place] Urine 1.020 1.003 - 1.030 LAB URINALYSIS - AUTOMATED METHOD 12/15/2024 12:12 PM EDT [facility] pH, Urine 8.0 5.0 - [...] - AUTOMATED METHOD 12/15/2024 12:12 PM EDT [facility] Hyaline Casts, Urine 0.0 0 - 3 /LPF LAB URINALYSIS - AUTOMATED METHOD 12/15/2024 12:12 PM EDT [facility] Urine Urine specimen from urethra / Unknown Non-blood Collection / Unknown 12/14/2024 1:00 PM EDT 12/15/2024 11:50 AM EDT us Farideh Garcia MD LAB URINE ORDERABLES Final Resul t [facility] [address] [place] [address], * (ABNORMAL) Culture urine (12/14/2024 1:00 PM EDT) Culture, Urine 10,000-49,000 CFU/mL Proteus mirabilis(A) SHANIA 12/19/2024 8:39 AM EDT [facility] Comment: Edited result: Previously reported as Proteus species on 12/18/2024 at 1125 EDT. Culture, Urine 10,000-49,000 CFU/mL Morganella morganii ssp morganii(A) SHANIA 12/19/2024 8:39 AM EDT [facility] Comment: The organism value for this result has been updated. These results have been appended to the previously preliminary verified report. Urine Urine specimen from urethra / Unknown Non-blood Collection / Unknown 12/14/2024 1:00 PM EDT 12/15/2024 11:50 AM EDT Narrative Organism Antibiotic Method Susceptibility Proteus mirabilis Amoxicillin/Clavulanate SAHNIA 4 ug/ml: Susceptible Proteus mirabilis Ampicillin/Sulbactam SHANIA [...] MICROBIOLOGY - GENERAL ORDER ITZEL Final Result [facility] [address] [place] [address], documented in this encounter Visit Diagnoses Diagnosis Frequency of micturition Urinary frequency documented in this encounter Care Teams Client Experience Specialist Relationship Specialty Start Date End Date Farideh Garcia MD [address] [place] [address] [address] [place] [address] PCP - General Geriatric Medicine 09/16/24 documented as of this encounter
--- OUTSIDE RECORDS SUMMARY | 2025-07-24 17:00 | XMS_ITS | Encounter Summary ---
Author Organization [facility] Address [address] [place] [address] Care Team Providers Care Liquid Center Assembler Name Role Phone Farideh Garcia MD Primary Care Provider [phone] Encounter Details Date Type Department Care Team (Late st Contact Info) Description 09/23/2024 Lab Requisition [facility] - Main Lab 299 [facility] [place] [address] Kris Osorio MD [address] [place] [address] Benign prostatic hyperplasia without lower urinary tract [...] LAB CHEMISTRY METHOD 09/24/2024 11:13 AM EST [facility] Blood Venous blood specimen / Unknown Venipuncture / Unknown 09/24/2024 6:55 AM EST 09/24/2024 10:15 AM EST Kris Osorio MD LAB BLOOD ORDERABLES Final Res ult Performing Organization Address [facility]/ZIP Co de Phone Number [facility] [address] [place] [address], * Magnesium (09/24/2024 6:55 AM EST) Pathologist [facility] Magnesium 2.3 1.9 - 2.6 mg/dL LAB CHEMISTRY METHOD 09/24/2024 11:04 AM EST [facility] Blood Venous blood specimen / Unknown Venipuncture / Unknown 09/24/2024 6:55 AM EST 09/24/2024 10:15 AM EST Kris Osorio MD LAB BLOOD ORDERABLES Final Res ult [facility] [address] [place] [address], * (ABNORMAL) Folate (09/24/2024 6:55 AM EST) Pathologist [facility] Folate >20.0(H) 2.8 - 17.0 ng/ml LAB CHEMISTRY METHOD 09/24/2024 11:15 AM EST [facility] Blood Venous blood specimen / Unknown Venipuncture / Unknown 09/24/2024 6:55 AM EST 09/24/2024 10:15 AM EST Kris Osorio MD LAB BLOOD ORDERABLES Final Res ult [facility] [address] [place] [address], [place] [phone] * (ABNORMAL) Comprehensive metabolic panel (09/24/2024 6:55 AM EST) Sodium 139 133 - 145 mmol/L LAB CHEMISTRY METHOD 09/24/2024 11:15 AM [facility] Potassium 3.9 3.5 - 5.5 mmol/L LAB CHEMISTRY METHOD 09/24/2024 11:15 AM [facility] Chloride 103 96 - 110 mmol/L LAB CHEMISTRY METHOD 09/24/2024 11:15 AM [facility] CO2 33(H) 21 - 32 mmol/L LAB CHEMISTRY METHOD 09/24/2024 11:15 AM [facility] Anion Gap 3 3 - 11 LAB CHEMISTRY METHOD 09/24/2024 11:15 AM [facility] Glucose 104(H) 70 - 100 mg/dL LAB CHEMISTRY METHOD 09/24/2024 11:15 AM [facility] BUN 17 5 - 25 mg/dL LAB CHEMISTRY METHOD 09/24/2024 11:15 AM [facility] Creatinine 0.57(L) 0.70 - 1.30 mg/dL LAB CHEMISTRY METHOD 09/24/2024 11:15 AM [facility] eGFR 102 >=60 mL/min/1. 73m2 LAB CHEMISTRY METHOD 09/24/2024 11:15 AM [facility] Comment:Calculation based on the Chronic Kidney Disease Epidemiology Collaboration (CKD-EPI) equation refit without adjustment for race. BUN/Creatinine Ratio 29.8 LAB CHEMISTRY METHOD 09/24/2024 11:15 AM [facility] Calcium 8.7 8.5 - 10.5 mg/dL LAB CHEMISTRY METHOD 09/24/2024 11:15 AM [facility] AST (SGOT) 21 10 - 42 unit/L LAB CHEMISTRY METHOD 09/24/2024 11:15 AM [facility] ALT (SGPT) 38 10 - 60 unit/L LAB CHEMISTRY METHOD 09/24/2024 11:15 AM [facility] Alkaline Phosphatase 102 42 - 121 unit/L LAB CHEMISTRY METHOD 09/24/2024 11:15 AM [facility] Total Protein 6.0 6.0 - 8.0 g/dL LAB CHEMISTRY METHOD 09/24/2024 11:15 AM [facility] Albumin 3.3 3.2 - 5.0 g/dL LAB CHEMISTRY METHOD 09/24/2024 11:15 AM [facility] Total Bilirubin 0.2 0.0 - 1.4 mg/dL LAB CHEMISTRY METHOD 09/24/2024 11:15 AM [facility] Blood Venous blood specimen / Unknown Venipuncture / Unknown 09/24/2024 6:55 AM EST 09/24/2024 10:15 AM EST us Kris Osorio MD LAB BLOOD ORDERABLES Final Res ult [facility] [address] [place] [address], * (ABNORMAL) Complete blood count (09/24/2024 6:55 AM EST) WBC 8.9 4.8 - 10.8 K/mcL LAB HEMETOLOGY METHOD 09/24/2024 10:37 AM [facility] RBC 4.60 4.50 - 5.50 M/mcL LAB HEMETOLOGY METHOD 09/24/2024 10:37 AM [facility] Hemoglobin 12.3(L) 13.5 - 17.5 g/dL LAB HEMETOLOGY METHOD 09/24/2024 10:37 AM [facility] Hematocrit 38.7(L) 42.0 - 54.0 % LAB HEMETOLOGY METHOD 09/24/2024 10:37 AM [facility] MCV 84.7 79.0 - 98.0 FL LAB HEMETOLOGY METHOD 09/24/2024 10:37 AM [facility] MCH 26.9(L) 27.0 - 32.0 pcg LAB HEMETOLOGY METHOD 09/24/2024 10:37 AM [facility] MCHC 31.8(L) 32.0 - 37.0 g/dL LAB HEMETOLOGY METHOD 09/24/2024 10:37 AM [facility] RDW 13.7 11.0 - 15.0 % LAB HEMETOLOGY METHOD 09/24/2024 10:37 AM [facility] Platelets 194 130 - 400 K/[facility] LAB HEMETOLOGY METHOD 09/24/2024 10:37 AM [facility] MPV 10.3 7.0 - 11.0 FL LAB HEMETOLOGY METHOD 09/24/2024 10:37 AM [facility] NRBC 0.2 <1.0 % LAB HEMETOLOGY METHOD 09/24/2024 10:37 AM [facility] NRBC Absolute 0.02 <0.10 K/[facility] LAB HEMETOLOGY METHOD 09/24/2024 10:37 AM [facility] Blood Venous blood specimen / Unknown Venipuncture / Unknown 09/24/2024 6:55 AM EST 09/24/2024 10:15 AM EST Kris Osorio MD LAB BLOOD ORDERABLES Final Res ult [facility] [address] [place] [address], documented in this encounter Visit Diagnoses Diagnosis Benign prostatic hyperplasia without lower urinary tract symptoms Vitamin D deficiency, unspecified Essential (primary) hypertension Unspecified essential hypertension documented in this encounter Care Teams Liquid Center Assembler Relationship Specialty Start Date End Date Farideh Garcia MD [address] [place] [address] [address] [place] [address] PCP - General Geriatric Medicine 09/16/24 documented as of this encounter
--- OUTSIDE RECORDS SUMMARY | 2025-07-24 17:00 | XMS_ITS | Encounter Summary ---
Author Organization [facility] Address [address] [place] [address] Care Team Providers Care Shipping Associate Name Role Phone Farideh Garcia MD Primary Care Provider [phone] Encounter Details Date Type Department Care Team (Late st Contact Info) Description 02/06/2025 Lab Requisition [facility] - Main Lab 299 [facility] [place] [address] Farideh Garcia MD [address] [place] [address] Weakness Social History Tobacco Use Types Packs/Day [...] LAB CHEMISTRY METHOD 02/06/2025 11:08 AM T [facility] Potassium 3.4(L) 3.5 - 5.5 mmol/L LAB CHEMISTRY METHOD 02/06/2025 11:08 AM T [facility] Chloride 103 96 [...] Resul t [facility] [address] [place] [address], * (ABNORMAL) Complete blood count (02/06/2025 5:45 [...] pcg LAB HEMETOLOGY METHOD 02/06/2025 10:51 AM [facility] MCHC 31.3(L) 32.0 - 37.0 g/dL LAB HEMETOLOGY METHOD 02/06/2025 10:51 AM [facility] RDW 15.2(H) 11.0 - 15.0 % LAB HEMETOLOGY METHOD 02/06/2025 10:51 AM [facility] Platelets 184 130 - 400 K/mcL LAB HEMETOLOGY METHOD 02/06/2025 10:51 AM [facility] MPV 9.8 7.0 - 11.0 FL LAB HEMETOLOGY METHOD 02/06/2025 10:51 AM [facility] NRBC 0.0 <1.0 % LAB HEMETOLOGY METHOD 02/06/2025 10:51 AM [facility] NRBC Absolute 0.00 <0.10 K/mcL LAB HEMETOLOGY METHOD 02/06/2025 10:51 AM [facility] Blood Venous blood specimen / Unknown Venipuncture / Unknown 02/06/2025 5:45 AM EDT 02/06/2025 9:25 AM EDT Farideh Garcia MD LAB BLOOD ORDERABLES Final Resul t [facility] [address] [place] [address], documented in this encounter Visit Diagnoses Diagnosis Weakness Other malaise and fatigue documented in this encounter Care Teams Shipping Associate Relationship Specialty Start Date End Date Farideh Garcia MD [address] [place] [address] [address] [place] [address] PCP - General Geriatric Medicine 09/16/24 documented as of this encounter
--- OUTSIDE RECORDS SUMMARY | 2025-07-24 17:00 | XMS_ITS | Encounter Summary ---
Author Organization [facility] Address [address] [place] [address] Care Team Providers Care Compliance And Control Analyst Name Role Phone Farideh Garcia MD Primary Care Provider [phone] Encounter Details Date Type Department Care Team (Late st Contact Info) Description 12/15/2024 Lab Requisition [facility] - Main Lab 299 [facility] [place] [address] Farideh Garcia MD [address] [place] [address] Benign prostatic hyperplasia with lower urinary tract [...] LAB CHEMISTRY METHOD 12/15/2024 12:44 PM EDT [facility] Blood Venous blood specimen / Unknown Venipuncture / Unknown 12/15/2024 5:57 AM EDT 12/15/2024 11:52 AM EDT Narrative [facility] - 12/15/2024 12:44 PM EDT The Siemens Advia Centaur Chemiluminescent Immunoassay is used. Results obtained with different assay methods or kits cannot be used interchangeably. Results cannot be interpreted as absolute evidence of the presence or absence of malignant disease. us Farideh Garcia MD LAB BLOOD ORDERABLES Final Resul t [facility] [address] [place] [address], documented in this encounter Visit Diagnoses Diagnosis Benign prostatic hyperplasia with lower urinary tract symptoms documented in this encounter Care Teams Compliance And Control Analyst Relationship Specialty Start Date End Date Farideh Garcia MD [address] [place] [address] [address] [place] [address] PCP - General Geriatric Medicine 09/16/24 documented as of this encounter
--- OUTSIDE RECORDS SUMMARY | 2025-07-24 17:00 | XMS_ITS | Encounter Summary ---
Author Organization [facility] Address [address] [place] [address] Care Team Providers Care Sketch Maker Name Role Phone Farideh Garcia MD Primary Care Provider [phone] Encounter Details Date Type Department Care Team (Late st Contact Info) Description 12/11/2024 Lab Requisition [facility] - Main Lab [address] [facility] [place] [address] Farideh Garcia MD [address] [place] [address] Dysuria Social History Tobacco Use Types Packs/Day [...] recollection if clinically indicated. 12/12/2024 10:31 AM [facility] Urine Urine specimen obtained by clean catch procedure / Unknown 12/10/2024 3:10 PM EDT 12/11/2024 9:03 AM EDT us Farideh Garcia MD LAB MICROBIOLOGY - GENERAL ORDER ITZEL Final Result [facility] [address] [place] [address], [place] [phone] * (ABNORMAL) Urinalysis with reflex microscopic and culture (12/10/2024 3:10 PM EDT) Specific [place] Urine 1.020 1.003 - 1.030 LAB URINALYSIS - AUTOMATED METHOD 12/11/2024 9:03 AM [facility] pH, Urine 7.0 5.0 - 8.0 pH LAB URINALYSIS - AUTOMATED METHOD 12/11/2024 9:03 AM [facility] Leukocytes, Urine Trace(A) Negative LAB URINALYSIS - AUTOMATED METHOD 12/11/2024 9:03 AM [facility] Nitrite, Urine Positive(A) Negative LAB URINALYSIS - AUTOMATED METHOD 12/11/2024 9:03 AM [facility] Protein, Urine Negative <=Trace mg/dL LAB URINALYSIS - AUTOMATED METHOD 12/11/2024 9:03 AM [facility] Glucose, Urine Negative Negative mg/dL LAB URINALYSIS - AUTOMATED METHOD 12/11/2024 9:03 AM [facility] Ketones, Urine Negative Negative mg/dL LAB URINALYSIS - AUTOMATED METHOD 12/11/2024 9:03 AM [facility] Urobilinogen , Urine 0.2 0.2 - 1.0 mg/dL LAB URINALYSIS - AUTOMATED METHOD 12/11/2024 9:03 AM [facility] Bilirubin, Urine Negative Negative LAB URINALYSIS - AUTOMATED METHOD 12/11/2024 9:03 AM EDT [facility] Blood, Urine Negative Negative LAB URINALYSIS - AUTOMATED METHOD 12/11/2024 9:03 AM [facility] RBC, Urine 7.0(H) 0 - 4 /HPF LAB URINALYSIS - AUTOMATED METHOD 12/11/2024 9:03 AM [facility] WBC, Urine 3.8 0 - 4 /HPF LAB URINALYSIS - AUTOMATED METHOD 12/11/2024 9:03 AM [facility] Squamous Epithelial, Urine 67(H) 0 - 60 /LPF LAB URINALYSIS - AUTOMATED METHOD 12/11/2024 9:03 AM [facility] Bacteria, Urine Many(A) Negative /HPF LAB URINALYSIS - AUTOMATED METHOD 12/11/2024 9:03 AM [facility] Hyaline Casts, Urine 2.0 0 - 3 /LPF LAB URINALYSIS - AUTOMATED METHOD 12/11/2024 9:03 AM [facility] Urine Urine specimen obtained by clean catch procedure / Unknown 12/10/2024 3:10 PM EDT 12/11/2024 8:32 AM EDT us Farideh Garcia MD LAB URINE ORDERABLES Final Resul t [facility] [address] [place] [address], * Kumari urine culture tube (12/10/2024 3:10 PM EDT) Extra Tube Hold for add-ons. 12/11/2024 10:01 AM EDT [facility] Comment:Auto resulted. Urine Urine specimen obtained by clean catch procedure / Unknown 12/10/2024 3:10 PM EDT 12/11/2024 8:32 AM EDT us Farideh Garcia MD LAB URINE ORDERABLES Final Resul t [facility] [address] [place] [address], documented in this encounter Visit Diagnoses Diagnosis Dysuria documented in this encounter Care Teams Sketch Maker Relationship Specialty Start Date End Date Farideh Garcia MD [address] [place] [address] [address] [place] [address] PCP - General Geriatric Medicine 09/16/24 documented as of this encounter
--- OUTSIDE RECORDS SUMMARY | 2025-07-24 17:00 | XMS_ITS | Encounter Summary ---
Author Organization [facility] Address [address] [place] [address] Care Team Providers Care Accounting System Expert Name Role Phone Farideh Garcia MD Primary Care Provider [phone] Encounter Details Date Type Department Care Team (Late st Contact Info) Description 09/16/2024 Lab Requisition [facility] - Main Lab [address] [facility] [place] [address] Farideh Garcia MD [address] [place] [address] Shortness of breath; Acute cough Social History [...] Procedure Name Priority Date/Time Associated Diagnosis Comments [id number], RSV, FLU A AND B QUALITATIVE RT-PCR, LOCAL REFERENCE LAB Routine 09/15/2024 12:00 PM EST Shortness of breath Acute cough documented in this encounter Results * [id number], RSV, Influenza A and B qualitative RT-PCR (09/15/2024 12:00 PM EST) SARS COV-2 Not Detected Not Detected LAB MOLECULAR DIAGNOSTICS METHOD 09/16/2024 12:35 PM EST [facility] Comment: Disclaimer: The manner in which this information is used to guide patient care is the responsibility of the healthcare provider. Testing was performed using the Blued m SARS-CoV-2 test. This test has been [...] for Healthcare Providers can be found at: https://www.fda.gov/media/507069/download Fact sheet for Patients can be found at: https://www.fda.gov/media/680825/download Influenza A PCR Not Detected Not Detected LAB MOLECULAR DIAGNOSTICS METHOD 09/16/2024 12:35 PM EST [facility] Influenza B PCR Not Detected Not Detected LAB MOLECULAR DIAGNOSTICS METHOD 09/16/2024 12:35 PM [facility] RSV PCR Not Detected Not Detected LAB MOLECULAR DIAGNOSTICS METHOD 09/16/2024 12:35 PM [facility] Swab Nasopharyngeal structure / Unknown 09/15/2024 12:00 PM EST 09/16/2024 9:43 AM EST Farideh Garcia MD LAB MICROBIOLOGY - GENERAL ORDER ITZEL Final Result [facility] [address] [place] [address], documented in this encounter Visit Diagnoses Diagnosis Shortness of breath Acute cough documented in this encounter Additional Health Concerns Infection Onset Date Last Indicated Resolved Time Respiratory Rule-Out 09/16/2024 09/15/2024 025 12:35 PM EST documented as of this encounter Care Teams Accounting System Expert Relationship Specialty Start Date End Date Farideh Garcia MD [address] [facility] [address] [place] [address] PCP - General Geriatric Medicine 09/16/24 documented as of this encounter
--- OUTSIDE RECORDS SUMMARY | 2025-07-24 17:00 | XMS_ITS | Encounter Summary ---
Author Organization [facility] Address [address] [place] [address] Care Team Providers Care Euclid Operator Name Role Phone Farideh Garcia MD Primary Care Provider [phone] Encounter Details Date Type Department Care Team (Late st Contact Info) Description 08/21/2024 Lab Requisition [facility] [place] - Main Lab [address] [place] [address] Kris Osorio MD [address] [place] [id number] Essential (primary) hypertension Social History Tobacco Use [...] LAB CHEMISTRY METHOD 08/22/2024 10:42 AM EST [facility] Potassium 3.5 3.5 - 5.5 mmol/L LAB CHEMISTRY METHOD 08/22/2024 10:42 AM EST [facility] Chloride 105 96 - 110 mmol/L LAB CHEMISTRY METHOD 08/22/2024 10:42 AM EST [facility] CO2 31 21 - 32 mmol/L LAB CHEMISTRY METHOD 08/22/2024 10:42 AM [facility] Anion Gap 6 3 - 11 LAB CHEMISTRY METHOD 08/22/2024 10:42 AM [facility] Glucose 124(H) 70 - 100 mg/dL LAB CHEMISTRY METHOD 08/22/2024 10:42 AM [facility] BUN 16 5 - 25 mg/dL LAB CHEMISTRY METHOD 08/22/2024 10:42 AM [facility] Creatinine 0.61(L) 0.70 - 1.30 mg/dL LAB CHEMISTRY METHOD 08/22/2024 10:42 AM [facility] eGFR 100 >=60 mL/min/1. 73m2 LAB CHEMISTRY METHOD 08/22/2024 10:42 AM [facility] Comment:Calculation based on the Chronic Kidney Disease Epidemiology Collaboration (CKD-EPI) equation refit without adjustment for race. BUN/Creatinine Ratio 26.2 LAB CHEMISTRY METHOD 08/22/2024 10:42 AM [facility] Calcium 8.4(L) 8.5 - 10.5 mg/dL LAB CHEMISTRY METHOD 08/22/2024 10:42 AM [facility] Blood Venous blood specimen / Unknown Venipuncture / Unknown 08/22/2024 5:29 AM EST 08/22/2024 10:05 AM EST us Kris Osorio MD LAB BLOOD ORDERABLES Final Res ult [facility] [address] [place] [address], documented in this encounter Visit Diagnoses Diagnosis Essential (primary) hypertension Unspecified essential hypertension documented in this encounter Additional Health Concerns Infection Onset Date Last Indicated Resolved Time Respiratory Rule-Out 09/16/2024 09/15/2024 025 12:35 PM EST documented as of this encounter Care Teams Euclid Operator Relationship Specialty Start Date End Date Farideh Garcia MD [address] [facility] [address] [place] [address] PCP - General Geriatric Medicine 09/16/24 documented as of this encounter
--- OUTSIDE RECORDS SUMMARY | 2025-07-24 17:00 | XMS_ITS | Encounter Summary ---
Author Organization [facility] Address [address] [place] [address] Care Team Providers Care Piping Engineer Name Role Phone Farideh Garcia MD Primary Care Provider [phone] Encounter Details Date Type Department Care Team (Late st Contact Info) Description 10/21/2024 Lab Requisition [facility] - Main Lab 299 [facility] [place] [address] Farideh Garcia MD [address] [place] [address] Vitamin D deficiency, unspecified Social History Tobacco [...] LAB CHEMISTRY METHOD 10/22/2024 12:24 PM EST [facility] [place] Blood Venous blood specimen / Unknown Venipuncture / Unknown 10/22/2024 5:45 AM EST 10/22/2024 11:10 AM EST us Farideh Garcia MD LAB BLOOD ORDERABLES Final Resul t [facility] [address] [place] [address], documented in this encounter Visit Diagnoses Diagnosis Vitamin D deficiency, unspecified documented in this encounter Care Teams Piping Engineer Relationship Specialty Start Date End Date Farideh Garcia MD [address] [place] [address] [address] [place] [address] PCP - General Geriatric Medicine 09/16/24 documented as of this encounter
--- OUTSIDE RECORDS SUMMARY | 2025-08-19 19:00 | XMS_ITS | Clinical Summary ---
Author Organization Unknown Care Team Providers Care Panel Machine Operator Name Role Phone LOKI MILES MD, MICHA Unavailable Unavailable SAUL URIAS, DILIP Unavailable Unavailable Payers Payer Name Policy Type Policy Number Effective Date Expira tion Date MEDICARE - NGS [place] - PD [id number] Problems Condition Name Condition Details Condition Category [...] OF COVID-19 Active 08-20 00:00: 00 OTHER REEXAMINER (CURRENT) DRUG THERAPY Active 08-20 00:00: 00 [...] 2024-08 00:00: 00 06-22 00:00 :00 No [id number] Per instruc tions Per instructio ns (route: oral) Med Classific ation: Anti-Infe ctive Agents pantoprazol e 40 mg tablet,jas yed release 2024-08 00:00: 00 06-22 00:00 :00 No [id number] Per instruc tions Per instructio ns (route: oral) Med Classific ation: Gastroint estinal Therapy Agents pregabalin 75 mg capsule 2024-08 00:00: 00 06-22 00:00 :00 No [id number] Per instruc tions Per instructio ns (route: oral) Med Classific ation: Central Nervous System Agents acetaminoph en 500 mg tablet 2024-08 00:00: 00 06-22 00:00 :00 No [id number] Per instruc tions Per instructio ns (route: oral) Med Classific ation: Analgesic , Anti-infl ammatory or Antipyret ic amlodipine 5 mg tablet 2024-08 00:00: 00 06-22 00:00 :00 No [id number] Per instruc tions Per instructio ns (route: oral) Med Classific ation: Cardiovas cular Therapy Agents docusate sodium 100 mg capsule 2024-08 00:00: 00 06-22 00:00 :00 No [id number] Per instruc tions Per instructio ns (route: oral) Med Classific ation: Gastroint estinal Therapy Agents duloxetine 30 mg capsule,del ayed release 2024-08 00:00: 00 06-22 00:00 :00 No [id number] Per instruc tions Per instructio ns (route: oral) Med Classific ation: Central Nervous System Agents finasteride 5 mg tablet 2024-08 00:00: 00 06-22 00:00 :00 No [id number] Per instruc tions Per instructio ns (route: oral) Med Classific ation: Genitouri nary Therapy magnesium oxide 400 mg (241.3 mg magnesium) tablet 2024-08 00:00: 00 06-22 00:00 :00 No [id number] Per instruc tions Per instructio ns (route: oral) Med Classific ation: Electroly te Balance-N utritiona l Products senna 8.6 mg tablet 2024-08 00:00: 00 06-22 00:00 :00 No [id number] Per instruc tions Per instructio ns (route: oral) Med Classific ation: Gastroint estinal Therapy Agents terazosin 2 mg capsule 2024-08 00:00: 00 06-22 00:00 :00 No [id number] Per instruc tions Per instructio ns (route: oral) Med Classific ation: Cardiovas cular Therapy Agents baclofen 20 mg tablet 2024-08 00:00: 00 06-22 00:00 :00 No [id number] Per instruc tions Per instructio ns (route: oral) Med Classific ation: Locomotor System acetaminoph en 500 mg tablet 2024-08 00:00: 00 Yes [id number] 2 tablet EVERY 8 HOURS 2 tablet EVERY 8 HOURS (route: oral) Med Classific ation: Analgesic , Anti-infl ammatory or Antipyret ic amlodipine 5 mg tablet 2024-08 00:00: 00 Yes [id number] 1 tablet DAILY 1 tablet DAILY (route: oral) Med Classific ation: Cardiovas cular Therapy Agents Artificial Tears (PF) 0.1 %-0.3 % drops in a dropperette 2024-08 00:00: 00 Yes [id number] 2 dropper ette EVERY 2 HOURS 2 dropperett e EVERY 2 HOURS (route: ophthalmic (eye)) Med Classific ation: Ophthalmi c Agents baclofen 20 mg tablet 2024-08 00:00: 00 Yes [id number] 0.5 tablet 3 TIMES DAILY 0.5 tablet 3 TIMES DAILY (route: oral) Med Classific ation: Locomotor System chlorhexidi ne gluconate 0.12 % mouthwash 2024-08 00:00: 00 Yes [id number] 20 mL BEDTIME 20 mL BEDTIME (route: mucous membrane) Med Classific ation: Mouth-Thr oat-Denta l - Preparati ons diclofenac 1 % topical gel 2024-08 00:00: 00 Yes [id number] Per instruc tions NEEDED Per instructio ns NEEDED (route: topical) Med Classific ation: Dermatolo gical docusate sodium 100 mg capsule 2024-08 00:00: 00 Yes [id number] 2 capsule 2 TIMES DAILY 2 capsule 2 TIMES DAILY (route: oral) Med Classific ation: Gastroint estinal Therapy Agents duloxetine 30 mg capsule,del ayed release 2024-08 00:00: 00 Yes [id number] 1 capsule 2 TIMES DAILY 1 capsule 2 TIMES DAILY (route: oral) Med Classific ation: Central Nervous System Agents finasteride 5 mg tablet 2024-08 00:00: 00 Yes [id number] 1 tablet BEDTIME 1 tablet BEDTIME (route: oral) Med Classific ation: Genitouri nary Therapy fluticasone propionate 50 mcg/actuati on nasal spray,suspe nsion 2024-08 00:00: 00 Yes [id number] 2 spray BEDTIME 2 spray BEDTIME (route: nasal) Med Classific ation: Respirato ry Therapy Agents guaifenesin 100 mg/5 mL oral liquid 2024-08 00:00: 00 Yes [id number] 20 mL EVERY 6 HOURS 20 mL EVERY 6 HOURS (route: oral) Med Classific ation: Respirato ry Therapy Agents magnesium oxide 400 mg (241.3 mg magnesium) tablet 2024-08 00:00: 00 Yes [id number] 1 tablet DAILY 1 tablet DAILY (route: oral) Med Classific ation: Electroly te Balance-N utritiona l Products Milk of Magnesia 400 mg/5 mL oral suspension 2024-08 00:00: 00 Yes [id number] 30 mL DAILY 30 mL DAILY (route: oral) Med Classific ation: Gastroint estinal Therapy Agents mirtazapine 15 mg tablet 2024-08 00:00: 00 Yes [id number] 0.5 tablet BEDTIME 0.5 tablet BEDTIME (route: oral) Med Classific ation: Central Nervous System Agents oxycodone 5 mg tablet 2024-08 00:00: 00 Yes [id number] 1 tablet EVERY 8 HOURS 1 tablet EVERY 8 HOURS (route: oral) Med Classific ation: Analgesic , Anti-infl ammatory or Antipyret ic pantoprazol e 40 mg tablet,jas yed release 2024-08 00:00: 00 Yes [id number] 1 tablet 2 TIMES DAILY 1 tablet 2 TIMES DAILY (route: oral) Med Classific ation: Gastroint estinal Therapy Agents pregabalin 75 mg capsule 2024-08 00:00: 00 Yes [id number] 1 capsule 3 TIMES DAILY 1 capsule 3 TIMES DAILY (route: oral) Med Classific ation: Central Nervous System Agents sennosides 8.6 mg tablet 2024-08 00:00: 00 Yes [id number] 1 tablet BEDTIME 1 tablet BEDTIME (route: oral) Med Classific ation: Gastroint estinal Therapy Agents terazosin 2 mg capsule 2024-08 00:00: 00 Yes [id number] 2 capsule BEDTIME 2 capsule BEDTIME (route: [...] MAINTAIN SITUATIONAL AWARENESS AND WILL NOTIFY CLINICAL MILLINERY DESIGNER AND PHYSICIAN/PROVIDER WITH ANY CHANGE IN CONDITION. [code = SKILLED NURSE TO PERFORM ENVIRONMENTAL SAFETY RISK ASSESSMENT AND FALL RISK ASSESSMENT AND PROVIDE INSTRUCTION TO IMPLEMENT ENVIRONMENTAL SAFETY AND FALL PREVENTION STRATEGIES THROUGHOUT THE CERTIFICATION PERIOD. SKILLED NURSE WILL MAINTAIN SITUATIONAL AWARENESS AND WILL NOTIFY CLINICAL MILLINERY DESIGNER AND PHYSICIAN/PROVIDER WITH ANY CHANGE IN CONDITION.] [...] EQUAL STRENGTH. PATIENT WC BOUND. LIVES IN [place]. LS CLEAR ON RA. DENIES CP/PALPITATIONS/SOB/DIZZINESS. DENIES [...] </paragraph><paragraph></paragraph><paragraph>PT AND STAFF INSTRUCTED TO CALL [facility] WITH ANY QUESTIONS OR CONCERNS AND/OR CHANGES IN CONDITION, STATE UNDERSTANDING</paragraph> Encounters Start Date/Time End Date/Time Encounter Type Admission Type Attending Clinicians Care Facility Care Department Encounter ID Discharge Date Discharge Status Discharge Condition Discharge Reason Percent Goals Met 2025-06-22 00:00:00 2025-08-20 00:00:00 Outpatient NEW ADMISSION DILIP HUGHES [facility] [id number] 14.81
== END 2025-07-24 14:38 | disposition home or self-care (01) ==
LOC: HO.HMCH 13:02
PROVIDERS: PCP Internal Medicine; Visit Provider Internal Medicine
DX: Z00.00 Encounter for general adult medical examination without abnormal findings (principal); I10 Essential (primary) hypertension; I63.9 Cerebral infarction, unspecified; E27.9 Disorder of adrenal gland, unspecified; K92.2 Gastrointestinal hemorrhage, unspecified; R97.20 Elevated prostate specific antigen [PSA]; M48.02 Spinal stenosis, cervical region; Z98.1 Arthrodesis status; R25.2 Cramp and spasm; K13.70 Unspecified lesions of oral mucosa; H61.23 Impacted cerumen, bilateral; F41.9 Anxiety disorder, unspecified; Z23 Encounter for immunization

== ENCOUNTER 2025-07-24 13:02 | Outpatient (REF) | payer MEDICARE, MEDICAID, SELFPAY ==
[2025-07-24 18:47] LABS: PSA,Total (Free>4and<10) 1.95 ng/mL (0.00-4.00)
[2025-07-25 08:12] LABS: HIV Num 1 0.06 S/CO (0.00-0.99); ~HepC Num1 0.10 S/CO (0.00-0.79); ~Hepatitis C Antibody Nonreactive (Nonreactive)
[2025-07-30 06:14] LABS: Metanephrine, Free 26 pg/mL (<=57); Normetanephrines, Free 81 pg/mL (<=148); Total Metanephrine, Free 107 pg/mL (<=205)
== END 2025-07-24 13:03 | disposition home or self-care (01) ==
LOC: HO.LAB 13:02
PROVIDERS: Internal Medicine Endocrinology, Diabetes & Metabolism; Nurse Practitioner Family; PCP Internal Medicine; Visit Provider Internal Medicine
DX: Z00.00 Encounter for general adult medical examination without abnormal findings (principal); I10 Essential (primary) hypertension; K92.2 Gastrointestinal hemorrhage, unspecified; R97.20 Elevated prostate specific antigen [PSA]; I63.9 Cerebral infarction, unspecified; Z98.1 Arthrodesis status; M48.02 Spinal stenosis, cervical region; R25.2 Cramp and spasm; H61.23 Impacted cerumen, bilateral; K13.70 Unspecified lesions of oral mucosa; F41.9 Anxiety disorder, unspecified; Z12.5 Encounter for screening for malignant neoplasm of prostate; Z23 Encounter for immunization
CPT/HCPCS: 36415; 83835; 84153; 86803; 87389; 90471; 90715; 99212; 99397

== ENCOUNTER 2025-08-06 11:06 | Outpatient (AMB) | payer MEDICARE, MEDICAID, SELFPAY ==
--- NOTE | 2025-08-06 11:10 | A.OFFVIS_ITS ---
Vital Signs 08/06/25 11:19 Height 5 ft 6 in Weight 180 lb BMI 29.0 BP 92/58 L Blood Pressure Location Lt brachial Position Sitting Pulse 74 Pulse Source Pulse Oximeter Pulse Oximetry (%) 95 Oxygen Delivery Method Room Air Intake Visit Reasons: Gastrointestinal hemorrhage Intake Note: Patient new consult for Gastrointestinal hemorrhage Patient cc: Pt has hx of GERD + CIC. Pt is denying sx or concerns at this time but is also cutting off the refuge manager while the MA is attempting to gather information. Acoustical Material Worker Required: Yes Acoustical Material Worker Services: Acoustical Material Worker Present Acoustical Material Worker Name: [id number] Information Interpreted: clinical only Accompanied by: Panel Coverer Allergies Penicillins Allergy (Severe, Verified 08/06/25 11:16) Rash tramadol Allergy (Unknown, Verified 08/06/25 11:16) inadequate response HPI HPI Gastrointestinal hemorrhage: Details: Patient is a 75-year-old male with PMH of anxiety, insomnia, fibromyalgia, PAD, hx of CVA with left sided residual. Patient is accompanied by [facility] counselor service [facility]. He was referred for evaluation of reflux, constipation, and concern for ga strointestinal bleeding. He was hospitalized in March for hematemesis. A CT scan at that time showed inflammation and thickening of the esophagus but could not identify a source of bleeding, with some concern for a right kidney issue. An upper endoscopy was also performed, which confirmed erosive esophagitis. The patient is taking pantoprazole for heartburn and currently denies any burning sensation in his chest or throat, trouble swallowing, or difficulty eating and drinking. Although constipation was noted on intake, the patient reports having daily bowel movements that are easy to pass and denies blood in his stool. Past medical history is notable for a prior neck surgery and a history of a stroke, after which he developed weakness in his arm and hand. He also has a history of anemia. His last colonoscopy was in 2014. Patient denies: fever/chills, n/v, appetite changes, pyrosis, regurgitation,dysphasia, unintentional wt loss, ab pain or melena/hematochezia. Social hx: -denies ETOH use -denies recreational drug use -non-smoker - family hx as below -denies personal hx of CA -denies significant cardiopulmonary history -tolerated anesthesia in the past without difficulty. [facility] Medical History (Updated 08/06/25 @ 14:15 by Rakel Collins CNP) Esophagitis determined by endoscopy Anemia Colon cancer screening History of blood transfusion (~03/27/25) History of GI bleed (~03/27/25) History of airway aspiration (~11/2024) Dysphagia History of stroke (~2021) Hx of varicose veins Depression COVID-19 Numbness HTN (hypertension) Spastic hemiparesis of left dominant side Spastic hemiplegia affecting right dominant side Spastic hemiparesis affecting dominant side Contracture, left hand Bilateral knee contractures Elevated PSA Moderate major depression Insomnia Fibromyalgia GERD (gastroesophageal reflux disease) Hypovitaminosis D Lumbar degenerative disc disease Surgical History (Updated 08/06/25 @ 11:21 by GATITO Fontenot) History of esophagogastroduodenoscopy (EGD) H/O colonoscopy Hx of spinal surgery (12/11/24) Hx of varicose vein ligation and stripping History of prostate surgery History of shoulder surgery History of laminectomy Family History Father Diabetes Hypertension Liver cancer Mother Diabetes Hypertension Stroke Other Substance use disorder Social History Household Members: Other Household Members Other[facility] Housing: House Housing Other:: [facility] Are you a primary palliative care coordinator to a significant other at home: No Do you presently have visiting nurse or other home services: Yes Alcohol intake: former Patient Tobacco Use Status: Former Tobacco user Tobacco use type: Cigarette Cigarettes Per Day: 3 e-Cigarette/Vaping Use: Never Used Second Hand Smoke Exposure: Yes Advance Directives Date on File: 09/06/22 service: No Current occupational status: disabled Cognitive needs: Yes (cane) Hearing needs: No Vision needs: Yes (reading glasses) Review of Systems Const Reports as per HPI ENT Reports as per HPI Card Reports as per HPI Resp Reports as per HPI GI Reports as per HPI Reports as per HPI Physical Exam Vital Signs: Last Vital Signs Pulse 74 08/06/25 11:19 BP 92/58 L 08/06/25 11:19 Pulse Ox 95 08/06/25 11:19 Oxygen Delivery Method Room Air 08/06/25 11:19 BMI result Body Mass Index 29.0 Const General: healthy appearing, no acute distress and well developed Nutritional Appearance: average body habitus Orientation/consciousness: patient oriented x3 HEENT Head: Yes normal to inspection, Yes normocephalic and Yes atraumatic Face and sinus: Yes normal facial exam Eyes General: appearance normal, both eyes and all related structures Neck Neck: Yes normal visual inspection Resp Effort & Inspection: normal respiratory effort, able to speak in complete sentences, no tracheal deviation and symmetric chest movement Cardio Jugular venous distension: no JVD GI Inspection: Yes normal to inspection, No distended and Yes obesity Palpation (GI): Soft to palpation, not firm, nontender and No hepatosplenomegaly present Auscultation: normal bowel sounds Neuro General: patient oriented x3 and Unable to assess gait Gait exam (Neuro): Unable to assess gait and Assistive device used (w/c bound) Psych Appearance: grossly normal Mental Status: mental status grossly normal Speech and movement: Normal speech and movement present Affect: normal affect Attitude: cooperative Thought process: Normal thought process present Thought content: Normal thought content present Insight: Good insight present (Psych) Judgement: Good judgement present (Psych) Results Reviewed Results Reviewed: Date of Service: 05/08/25 Procedure(s): MR abdomen wo/w con Accession Number(s): [id number] cc: Lars Mathews MD; Leora Montes MD~ Reason for Exam: N28.9 - Disorder of kidney and ureter, unspecified EXAMINATION: MR ABDOMEN WITHOUT THEN WITH IV CONTRAST HISTORY: N28.9 - Disorder of kidney and ureter, unspecified COMPARISON: Correlation is made with an abdominal CT dated 07/09/2011. TECHNIQUE: Axial in and out of phase T1-weighted gradient echo, axial diffusion weighted, and axial and coronal HASTE T2 with fat saturation images were obtained through the abdomen. Subsequently, fat suppressed axial and coronal T1-weighted images were obtained after the intravenous administration of 8.5 mL Gadavist. FINDINGS: The examination is limited by patient motion, particularly on the postcontrast images. Liver: There is no loss of signal intensity in the liver on opposed phase imaging to suggest steatosis. There is no definite enhancing liver mass. The hepatic and portal veins are patent. There is no intrahepatic biliary dilatation. Gallbladder/biliary tree: No gallstones are identified. The common bile duct is normal in caliber. No intraluminal filling defects are identified to suggest choledocholithiasis. Spleen: The spleen is unremarkable. Pancreas: The pancreas is unremarkable. There is no definite enhancing pancreatic mass. The pancreatic duct is normal in caliber. Adrenals: There is a 2.1 cm right adrenal mass. This demonstrates diffuse loss of signal intensity on opposed phase imaging, consistent with an adenoma. It is also unchanged in size from the prior CT scan. The left adrenal gland is unremarkable.. Kidneys: No right renal lesion is identified. There is a 9 mm cyst in the interpolar region of the left kidney. There is no hydronephrosis. Lymph nodes: There is no retroperitoneal lymphadenopathy in the upper abdomen. Fluid: There is no ascites in the upper abdomen. Visualized bowel: The visualized small and large bowel loops are unremarkable in appearance. Visualized bones: The visualized bones demonstrate normal marrow signal intensity. MR/MR abdomen wo/w con IMPRESSION: 1. Limited examination due to patient motion. 2. 2.1 cm right adrenal adenoma without change since 07/09/2011. 3. No right renal mass is identified. Electronically signed by: Marek March MD 05/08/2025 12:04 PM EDT RP Assessment & Plan Assessment & Plan (1) Colon cancer screening: Code(s): Z12.11 - Encounter for screening for malignant neoplasm of colon Category: Medical Plan: The patient is overdue for a screening colonoscopy, as his last one was in 2014. - An order will be placed for a repeat colonoscopy for colorectal cancer screening and to ensure there is no source of bleeding in the lower colon. Medications: -prescriptions for laxative tablets and PEG sent to pharmacy; instructions on clear liquid diet given Patient educated on scheduling process, procedure preparation, including avoiding certain foods and ensuring clear liquid intake Advised on necessity for ride post-procedure due to sedation. (2) Anemia: Code(s): D64.9 - Anemia, unspecified Category: Medical Qualifiers: Anemia type: unspecified type Qualified Code(s): D64.9 - Anemia, unspecified Plan: The patient has a known history of anemia, which may be related to his prior episode of hematemesis. - Additional labs will be ordered to investigate for potential causes, including vitamin deficiencies, iron deficiency, and thyroid dysfunction. (3) Esophagitis determined by endoscopy: Code(s): K20.90 - Esophagitis, unspecified without bleeding Category: Medical Plan: The patient has a history of esophagitis confirmed on prior EGD and CT scan. - He is currently taking medication to manage this, and his symptoms of heartburn are resolved. Also without repeat hematemesis. - He will continue taking his current medication. - We will attempt to obtain outside records of EGD reports/path Plan Follow-up after colonoscopy or sooner as needed Time: I spent a total of 45 minutes on the date of encounter which includes: Preparing to see the patient (reviewed previous documentation, test results and medical history) Performing a medically appropriate exam and/or evaluation Ordering medications, tests, and procedures Documenting clinical information in the health record Orders: Orders TSH reflex Free T4 Today D64.9 - Anemia, unspecified IRON PROFILE Today D64.9 - Anemia, unspecified Vitamin B12 and Folate Today D64.9 - Anemia, unspecified Referrals GI Procedure Notification D64.9 - Anemia, unspecified, Z12.11 - Encounter for screening for malignant neoplasm of colon Medications: New bisacodyl take four tablets once day of colonoscopy prep 20 mg (4 x 5 mg) PO ONCE 4 tabs 0RF peg 3350-electrolytes 236-22.74-6.74 -5.86 gram until fecal effluent is clear 240 mL PO ONCE 4,000 mL 0RF Coding Level of Care Code New Pt New Pt Level 4 (78130) Patient Type New Diagnoses Colon cancer screening Z12.11 Anemia, unspecified type D64.9 Anemia type: unspecified type Esophagitis determined by endoscopy K20.90
[2025-08-06 11:19] VITALS: BP 92/58; PULSE 74; O2SAT 95; BMI 29.0
--- OUTSIDE RECORDS SUMMARY | 2025-08-06 14:32 | XMS_ITS | Encounter Summary ---
Author Organization [facility] Address [address] [place] [address] Care Team Providers Care Cotton Candy Maker Name Role Phone Farideh Garcia MD Primary Care Provider [phone] Encounter Details Date Type Department Care Team (Late st Contact Info) Description 08/21/2024 Lab Requisition [facility] - Main Lab [address] [place] [address] Kris Osorio MD [address] [place] [id number] Essential (primary) hypertension Social History Tobacco Use [...] LAB CHEMISTRY METHOD 08/22/2024 10:42 AM EST [facility] Potassium 3.5 3.5 - 5.5 mmol/L LAB CHEMISTRY METHOD 08/22/2024 10:42 AM EST [facility] Chloride 105 96 - 110 mmol/L LAB CHEMISTRY METHOD 08/22/2024 10:42 AM EST [facility] CO2 31 21 - [...] MD LAB BLOOD ORDERABLES Final Res ult [facility] [address] [place] [address], documented in this encounter Visit Diagnoses Diagnosis Essential (primary) hypertension Unspecified essential hypertension documented in this encounter Additional Health Concerns Infection Onset Date Last Indicated Resolved Time Respiratory Rule-Out 09/16/2024 09/15/2024 025 12:35 PM EST documented as of this encounter Care Teams Cotton Candy Maker Relationship Specialty Start Date End Date Farideh Garcia MD [address] [facility] [address] [place] [address] PCP - General Geriatric Medicine 09/16/24 documented as of this encounter
--- OUTSIDE RECORDS SUMMARY | 2025-08-06 14:32 | XMS_ITS | Encounter Summary ---
Author Organization [facility] Address [address] [place] [address] Care Team Providers Care Investment Manager Name Role Phone Farideh Garcia MD Primary Care Provider [phone] Encounter Details Date Type Department Care Team (Late st Contact Info) Description 12/11/2024 Lab Requisition [facility] - Main Lab [address] [place] [address] Farideh Garcia MD [address] [place] [address] Dysuria Social History Tobacco Use Types Packs/Day [...] recollection if clinically indicated. 12/12/2024 10:31 AM [facility] Urine Urine specimen obtained by clean catch procedure / Unknown 12/10/2024 3:10 PM EDT 12/11/2024 9:03 AM EDT us Farideh Garcia MD LAB MICROBIOLOGY - GENERAL ORDER ITZEL Final Result [facility] [address] [place] [address], [place] [phone] * (ABNORMAL) Urinalysis with reflex microscopic and culture (12/10/2024 3:10 PM EDT) Specific [place] Urine 1.020 1.003 - 1.030 LAB URINALYSIS - AUTOMATED METHOD 12/11/2024 9:03 AM [facility] pH, Urine 7.0 5.0 - 8.0 pH LAB URINALYSIS - AUTOMATED METHOD 12/11/2024 9:03 AM [facility] Leukocytes, Urine Trace(A) Negative LAB URINALYSIS - AUTOMATED METHOD 12/11/2024 9:03 AM [facility] Nitrite, Urine Positive(A) Negative LAB URINALYSIS - AUTOMATED METHOD 12/11/2024 9:03 AM [facility] Protein, Urine Negative <=Trace mg/dL LAB URINALYSIS - AUTOMATED METHOD 12/11/2024 9:03 AM [facility] Glucose, Urine Negative Negative mg/dL LAB URINALYSIS - AUTOMATED METHOD 12/11/2024 9:03 AM [facility] Ketones, Urine Negative Negative mg/dL LAB URINALYSIS - AUTOMATED METHOD 12/11/2024 9:03 AM [facility] Urobilinogen , Urine 0.2 0.2 - 1.0 mg/dL LAB URINALYSIS - AUTOMATED METHOD 12/11/2024 9:03 AM [facility] Bilirubin, Urine Negative Negative LAB URINALYSIS - AUTOMATED METHOD 12/11/2024 9:[address] [facility] Blood, Urine Negative Negative LAB URINALYSIS - AUTOMATED METHOD 12/11/2024 9:03 AM [facility] RBC, Urine 7.0(H) 0 - 4 /HPF LAB URINALYSIS - AUTOMATED METHOD 12/11/2024 9:03 AM [facility] WBC, Urine 3.8 0 - 4 /HPF LAB URINALYSIS - AUTOMATED METHOD 12/11/2024 9:03 AM [facility] Squamous Epithelial, Urine 67(H) 0 - 60 /LPF LAB URINALYSIS - AUTOMATED METHOD 12/11/2024 9:03 AM [facility] Bacteria, Urine Many(A) Negative /HPF LAB URINALYSIS - AUTOMATED METHOD 12/11/2024 9:03 AM [facility] Hyaline Casts, Urine 2.0 0 - 3 /LPF LAB URINALYSIS - AUTOMATED METHOD 12/11/2024 9:03 AM [facility] Urine Urine specimen obtained by clean catch procedure / Unknown 12/10/2024 3:10 PM EDT 12/11/2024 8:32 AM EDT us Farideh Garcia MD LAB URINE ORDERABLES Final Resul t [facility] [address] [place] [address], * Kumari urine culture tube (12/10/2024 3:10 PM EDT) Extra Tube Hold for add-ons. 12/11/2024 10:[address] [facility] Comment:Auto resulted. Urine Urine specimen obtained by clean catch procedure / Unknown 12/10/2024 3:10 PM EDT 12/11/2024 8:32 AM EDT us Farideh Garcia MD LAB URINE ORDERABLES Final Resul t [facility] ([facility] [address] [place] [address], documented in this encounter Visit Diagnoses Diagnosis Dysuria documented in this encounter Care Teams Investment Manager Relationship Specialty Start Date End Date Farideh Garcia MD [address] [place] [address] [address] [place] [address] PCP - General Geriatric Medicine 09/16/24 documented as of this encounter
--- OUTSIDE RECORDS SUMMARY | 2025-08-06 14:32 | XMS_ITS | Encounter Summary ---
Author Organization [facility] Address [address] [place] [address] Care Team Providers Care Grinder Setup Operator Name Role Phone Farideh Garcia MD Primary Care Provider [phone] Encounter Details Date Type Department Care Team (Late st Contact Info) Description 09/16/2024 Lab Requisition [facility] - Main Lab [address] [facility] [place] [address] Farideh Garcia MD [address] [place] [address] Shortness of breath; Acute cough Social History [...] Procedure Name Priority Date/Time Associated Diagnosis Comments [id number], RSV, FLU A AND B QUALITATIVE RT-PCR, LOCAL REFERENCE LAB Routine 09/15/2024 12:00 PM EST Shortness of breath Acute cough documented in this encounter Results * [id number], RSV, Influenza A and B qualitative RT-PCR (09/15/2024 12:00 PM EST) SARS COV-2 Not Detected Not Detected LAB MOLECULAR DIAGNOSTICS METHOD 09/16/2024 12:35 PM EST [facility] Comment: Disclaimer: The manner in which this information is used to guide patient care is the responsibility of the healthcare provider. Testing was performed using the [employer] m SARS-CoV-2 test. This test has been [...] for Healthcare Providers can be found at: https://www.fda.gov/media/085791/download Fact sheet for Patients can be found at: https://www.fda.gov/media/314079/download Influenza A PCR Not Detected Not Detected LAB MOLECULAR DIAGNOSTICS METHOD 09/16/2024 12:35 PM EST [facility] Influenza B PCR Not Detected Not Detected LAB MOLECULAR DIAGNOSTICS METHOD 09/16/2024 12:35 PM [facility] RSV PCR Not Detected Not Detected LAB MOLECULAR DIAGNOSTICS METHOD 09/16/2024 12:35 PM [facility] Swab Nasopharyngeal structure / Unknown 09/15/2024 12:00 PM EST 09/16/2024 9:43 AM EST Farideh Garcia MD LAB MICROBIOLOGY - GENERAL ORDER ITZEL Final Result [facility] [address] [place] [address], documented in this encounter Visit Diagnoses Diagnosis Shortness of breath Acute cough documented in this encounter Additional Health Concerns Infection Onset Date Last Indicated Resolved Time Respiratory Rule-Out 09/16/2024 09/15/2024 025 12:35 PM EST documented as of this encounter Care Teams Grinder Setup Operator Relationship Specialty Start Date End Date Farideh Garcia MD [address] [facility] [address] [place] [address] PCP - General Geriatric Medicine 09/16/24 documented as of this encounter
--- OUTSIDE RECORDS SUMMARY | 2025-08-06 14:32 | XMS_ITS | Encounter Summary ---
Author Organization [facility] Address [address] [place] [address] Care Team Providers Care Plaster Foreman Name Role Phone Farideh Garcia MD Primary Care Provider [phone] Encounter Details Date Type Department Care Team (Late st Contact Info) Description 12/15/2024 Lab Requisition [facility] - Main Lab [address] [facility] [place] [address] Farideh Garcia MD [address] [place] [address] Frequency of micturition Social History Tobacco Use [...] reflex microscopic (12/14/2024 1:00 PM EDT) Specific [place] Urine 1.020 1.003 - 1.030 LAB URINALYSIS - AUTOMATED METHOD 12/15/2024 12:12 PM EDT [facility] pH, Urine 8.0 5.0 - 8.0 pH LAB URINALYSIS - AUTOMATED METHOD 12/15/2024 12:12 PM [facility] Leukocytes, Urine Trace(A) Negative LAB URINALYSIS - AUTOMATED METHOD 12/15/2024 12:12 PM [facility] Nitrite, Urine Negative Negative LAB URINALYSIS - AUTOMATED METHOD 12/15/2024 12:12 PM [facility] Protein, Urine Trace <=Trace mg/dL LAB URINALYSIS - AUTOMATED METHOD 12/15/2024 12:12 PM [facility] Glucose, Urine Negative Negative mg/dL LAB URINALYSIS - AUTOMATED METHOD 12/15/2024 12:12 PM [facility] Ketones, Urine Trace(A) Negative mg/dL LAB URINALYSIS - AUTOMATED METHOD 12/15/2024 12:12 PM [facility] Urobilinogen, Urine 2.0(A) 0.2 - 1.0 mg/dL LAB URINALYSIS - AUTOMATED METHOD 12/15/2024 12:12 PM [facility] Bilirubin, Urine Negative Negative LAB URINALYSIS - AUTOMATED METHOD 12/15/2024 12:12 PM [facility] Blood, Urine Negative Negative LAB URINALYSIS - AUTOMATED METHOD 12/15/2024 12:12 PM [facility] RBC, Urine 4.8(H) 0 - 4 /HPF LAB URINALYSIS - AUTOMATED METHOD 12/15/2024 12:12 PM [facility] WBC, Urine 0.9 0 - 4 /HPF LAB URINALYSIS - AUTOMATED METHOD 12/15/2024 12:12 PM [facility] Squamous Epithelial, Urine 15 0 - 60 /LPF LAB URINALYSIS - AUTOMATED METHOD 12/15/2024 12:12 PM [facility] Bacteria, Urine Negative Negative /HPF LAB URINALYSIS - AUTOMATED METHOD 12/15/2024 12:12 PM EDT [facility] Hyaline Casts, Urine 0.0 0 - 3 /LPF LAB URINALYSIS - AUTOMATED METHOD 12/15/2024 12:12 PM EDT [facility] Urine Urine specimen from urethra / Unknown Non-blood Collection / Unknown 12/14/2024 1:00 PM EDT 12/15/2024 11:50 AM EDT us Farideh Garcia MD LAB URINE ORDERABLES Final Resul t [facility] [address] [place] [address], * (ABNORMAL) Culture urine (12/14/2024 1:00 PM EDT) Culture, Urine 10,000-49,000 CFU/mL Proteus mirabilis(A) SHANIA 12/19/2024 8:39 AM EDT [facility] Comment: Edited result: Previously reported as Proteus species on 12/18/2024 at 1125 EDT. Culture, Urine 10,000-49,000 CFU/mL Morganella morganii ssp morganii(A) SHANIA 12/19/2024 8:39 AM EDT [facility] Comment: The organism value [...] MICROBIOLOGY - GENERAL ORDER ITZEL Final Result [facility] ([facility]) [facility] [address] [place] [address], documented in this encounter Visit Diagnoses Diagnosis Frequency of micturition Urinary frequency documented in this encounter Care Teams Plaster Foreman Relationship Specialty Start Date End Date Farideh Garcia MD [address] [place] [address] [address] [place] [address] PCP - General Geriatric Medicine 09/16/24 documented as of this encounter
--- OUTSIDE RECORDS SUMMARY | 2025-08-06 14:32 | XMS_ITS | Encounter Summary ---
Author Organization [facility] Address [address] [place] [address] Care Team Providers Care Dipper And Baker Name Role Phone Farideh Garcia MD Primary Care Provider [phone] Encounter Details Date Type Department Care Team (Late st Contact Info) Description 10/21/2024 Lab Requisition [facility] - Main Lab [address] [facility] [place] [address] Farideh Garcia MD [address] [place] [address] Vitamin D deficiency, unspecified Social History Tobacco [...] LAB CHEMISTRY METHOD 10/22/2024 12:24 PM EST [facility] ([facility]) [facility] Blood Venous blood specimen / Unknown Venipuncture / Unknown 10/22/2024 5:45 AM EST 10/22/2024 11:10 AM EST us Farideh Garcia MD LAB BLOOD ORDERABLES Final Resul t [facility] ([facility] LAB [address] [place] [address], documented in this encounter Visit Diagnoses Diagnosis Vitamin D deficiency, unspecified documented in this encounter Care Teams Dipper And Baker Relationship Specialty Start Date End Date Farideh Garcia MD [address] [place] [address] [address] [place] [address] PCP - General Geriatric Medicine 09/16/24 documented as of this encounter
--- OUTSIDE RECORDS SUMMARY | 2025-08-06 14:32 | XMS_ITS | Encounter Summary ---
Author Organization [email or web address] Address [address] [place] [address] Care Team Providers Care Environmental Tech Name Role Phone Farideh Garcia MD Primary Care Provider [phone] Encounter Details Date Type Department Care Team (Late st Contact Info) Description 09/23/[address] [facility] - Main Lab [address] [facility] [place] [address] Kris Osorio MD [address] [place] [id number] Benign prostatic hyperplasia without lower urinary tract [...] LAB CHEMISTRY METHOD 09/24/2024 11:13 AM EST [facility] Blood Venous blood specimen / Unknown Venipuncture / Unknown 09/24/2024 6:55 AM EST 09/24/2024 10:15 AM EST Kris Osorio MD LAB BLOOD ORDERABLES Final Res ult Performing Organization Address [facility]/ZIP Co de Phone Number [facility] LAB [address] [place] [address], * Magnesium (09/24/2024 6:55 AM EST) Pathologist [facility] Magnesium 2.3 1.9 - 2.6 mg/dL LAB CHEMISTRY METHOD 09/24/2024 11:04 AM EST [facility] Blood Venous blood specimen / Unknown Venipuncture / Unknown 09/24/2024 6:55 AM EST 09/24/2024 10:15 AM EST Kris Osorio MD LAB BLOOD ORDERABLES Final Res ult [facility] [address] [place] [address], * (ABNORMAL) Folate (09/24/2024 6:55 AM EST) Pathologist [facility] Folate >20.0(H) 2.8 - 17.0 ng/ml LAB CHEMISTRY METHOD 09/24/2024 11:15 AM EST [facility] Blood Venous blood specimen / Unknown Venipuncture / Unknown 09/24/2024 6:55 AM EST 09/24/2024 10:15 AM EST Kris Osorio MD LAB BLOOD ORDERABLES Final Res ult [facility] [address] [place] [address], [place] [phone] * (ABNORMAL) Comprehensive metabolic panel (09/24/2024 6:55 AM EST) Sodium 139 133 - 145 mmol/L LAB CHEMISTRY METHOD 09/24/2024 11:15 AM [facility] LAB Potassium 3.9 3.5 - 5.5 mmol/L LAB CHEMISTRY METHOD 09/24/2024 11:15 AM [facility] LAB Chloride 103 96 - 110 mmol/L LAB CHEMISTRY METHOD 09/24/2024 11:15 AM [facility] LAB CO2 33(H) 21 - 32 mmol/L LAB CHEMISTRY METHOD 09/24/2024 11:15 AM [facility] LAB Anion Gap 3 3 - 11 LAB CHEMISTRY METHOD 09/24/2024 11:15 AM [facility] LAB Glucose 104(H) 70 - 100 mg/dL LAB CHEMISTRY METHOD 09/24/2024 11:15 AM [facility] BUN 17 5 - 25 mg/dL LAB CHEMISTRY METHOD 09/24/2024 11:15 AM [facility] LAB Creatinine 0.57(L) 0.70 - 1.30 mg/dL LAB CHEMISTRY METHOD 09/24/2024 11:15 AM [facility] LAB eGFR 102 >=60 mL/min/1. 73m2 LAB CHEMISTRY METHOD 09/24/2024 11:15 AM [facility] LAB Comment:Calculation based on the Chronic Kidney Disease Epidemiology Collaboration (CKD-EPI) equation refit without adjustment for race. BUN/Creatinine Ratio 29.8 LAB CHEMISTRY METHOD 09/24/2024 11:15 AM [facility] LAB Calcium 8.7 8.5 - 10.5 mg/dL LAB CHEMISTRY METHOD 09/24/2024 11:15 AM [facility] LAB AST (SGOT) 21 10 - 42 unit/L LAB CHEMISTRY METHOD 09/24/2024 11:15 AM [facility] ALT (SGPT) 38 10 - 60 unit/L LAB CHEMISTRY METHOD 09/24/2024 11:15 AM [facility] Alkaline Phosphatase 102 42 - 121 unit/L LAB CHEMISTRY METHOD 09/24/2024 11:15 AM [facility] Total Protein 6.0 6.0 - 8.0 g/dL LAB CHEMISTRY METHOD 09/24/2024 11:15 AM [facility] LAB Albumin 3.3 3.2 - 5.0 g/dL LAB CHEMISTRY METHOD 09/24/2024 11:15 AM [facility] LAB Total Bilirubin 0.2 0.0 - 1.4 mg/dL LAB CHEMISTRY METHOD 09/24/2024 11:15 AM [facility] LAB Blood Venous blood specimen / Unknown Venipuncture / Unknown 09/24/2024 6:55 AM EST 09/24/2024 10:15 AM EST us Kris Osorio MD LAB BLOOD ORDERABLES Final Res ult [facility] [address] [place] [address], * (ABNORMAL) Complete blood count (09/24/2024 6:55 AM EST) WBC 8.9 4.8 - 10.8 K/mcL LAB HEMETOLOGY METHOD 09/24/2024 10:37 AM [facility] RBC 4.60 4.50 - 5.50 M/mcL LAB HEMETOLOGY METHOD 09/24/2024 10:37 AM [facility] LAB Hemoglobin 12.3(L) 13.5 - 17.5 g/dL LAB HEMETOLOGY METHOD 09/24/2024 10:37 AM [facility] LAB Hematocrit 38.7(L) 42.0 - 54.0 % LAB HEMETOLOGY METHOD 09/24/2024 10:37 AM [facility] LAB MCV 84.7 79.0 - 98.0 FL LAB HEMETOLOGY METHOD 09/24/2024 10:37 AM [facility] LAB MCH 26.9(L) 27.0 - 32.0 pcg LAB HEMETOLOGY METHOD 09/24/2024 10:37 AM [facility] LAB MCHC 31.8(L) 32.0 - 37.0 g/dL LAB HEMETOLOGY METHOD 09/24/2024 10:37 AM [facility] LAB RDW 13.7 11.0 - 15.0 % LAB HEMETOLOGY METHOD 09/24/2024 10:37 AM [facility] LAB Platelets 194 130 - 400 K/[facility] LAB HEMETOLOGY METHOD 09/24/2024 10:37 AM [facility] LAB MPV 10.3 7.0 - 11.0 FL LAB HEMETOLOGY METHOD 09/24/2024 10:37 AM [facility] LAB NRBC 0.2 <1.0 % LAB HEMETOLOGY METHOD 09/24/2024 10:37 AM [facility] LAB NRBC Absolute 0.02 <0.10 K/[facility] LAB HEMETOLOGY METHOD 09/24/2024 10:37 AM [facility] LAB Blood Venous blood specimen / Unknown Venipuncture / Unknown 09/24/2024 6:55 AM EST 09/24/2024 10:15 AM EST Kris Osorio MD LAB BLOOD ORDERABLES Final Res ult [facility] H[facility] LAB [address] [place] [address], documented in this encounter Visit Diagnoses Diagnosis Benign prostatic hyperplasia without lower urinary tract symptoms Vitamin D deficiency, unspecified Essential (primary) hypertension Unspecified essential hypertension documented in this encounter Care Teams Environmental Tech Relationship Specialty Start Date End Date Farideh Garcia MD [address] [place] [address] [address] [place] [address] PCP - General Geriatric Medicine 09/16/24 documented as of this encounter
--- OUTSIDE RECORDS SUMMARY | 2025-08-06 14:32 | XMS_ITS | Encounter Summary ---
Author Organization [facility] Address [address] [place] [address] Care Team Providers Care Industrial Editor Name Role Phone Farideh Garcia MD Primary Care Provider [phone] Encounter Details Date Type Department Care Team (Late st Contact Info) Description 02/06/2025 Lab Requisition [facility] - Main Lab [address] [facility] [place] [address] Farideh Garcia MD [address] [place] [address] Weakness Social History Tobacco Use Types Packs/Day [...] LAB CHEMISTRY METHOD 02/06/2025 11:08 AM T [facility] Potassium 3.4(L) 3.5 - 5.5 mmol/L LAB CHEMISTRY METHOD 02/06/2025 11:08 AM T [facility] LAB Chloride 103 [...] MD LAB BLOOD ORDERABLES Final Resul t [facility] [address] [place] [address], * (ABNORMAL) Complete blood count (02/06/2025 5:45 [...] MD LAB BLOOD ORDERABLES Final Resul t [facility] ([facility]) [facility] [address] [place] [address], documented in this encounter Visit Diagnoses Diagnosis Weakness Other malaise and fatigue documented in this encounter Care Teams Industrial Editor Relationship Specialty Start Date End Date Farideh Garcia MD [address] [place] [address] [address] [place] [address] PCP - General Geriatric Medicine 09/16/24 documented as of this encounter
--- OUTSIDE RECORDS SUMMARY | 2025-08-06 14:32 | XMS_ITS | Clinical Summary ---
Author Organization [address] [facility] Address [address] [place] [address] Phone Care Team Providers Care Facilities Planner Name Role Phone Farideh Garcia MD Primary Care Provider [phone] Social History Tobacco Use Types Packs/Day Years [...] Insurance MEDICARE MEDICAID - [place] Care Teams Facilities Planner Relationship Specialty Start Date End Date Farideh Garcia MD [address] [place] [address] [address] [place] [address] PCP - General Geriatric Medicine 09/16/24
--- OUTSIDE RECORDS SUMMARY | 2025-08-06 14:32 | XMS_ITS | Encounter Summary ---
[facility] Address [address] [place] [address] Care Team Providers Care Supervisory Aide Name Role Phone Farideh Garcia MD Primary Care Provider [phone] Encounter Details Date Type Department Care Team (Late st Contact Info) Description 12/15/2024 Lab Requisition [facility] - Main Lab 299 [facility] [place] [address] Farideh Garcia MD [address] [place] [address] Benign prostatic hyperplasia with lower urinary tract [...] LAB CHEMISTRY METHOD 12/15/2024 12:44 PM EDT [facility] Blood Venous blood specimen / Unknown Venipuncture / Unknown 12/15/2024 5:57 AM EDT 12/15/2024 11:52 AM EDT Narrative [facility] - 12/15/2024 12:44 PM EDT The Siemens Advia Centaur Chemiluminescent Immunoassay is used. Results obtained with different assay methods or kits cannot be used interchangeably. Results cannot be interpreted as absolute evidence of the presence or absence of malignant disease. us Farideh Garcia MD LAB BLOOD ORDERABLES Final Resul t [facility] ([facility]) [facility] LAB [address] [place] [address], documented in this encounter Visit Diagnoses Diagnosis Benign prostatic hyperplasia with lower urinary tract symptoms documented in this encounter Care Teams Supervisory Aide Relationship Specialty Start Date End Date Farideh Garcia MD [address] [place] [address] [address] [place] [address] PCP - General Geriatric Medicine 09/16/24 documented as of this encounter
--- OUTSIDE RECORDS SUMMARY | 2025-08-19 19:00 | XMS_ITS | Clinical Summary ---
Author Organization Unknown Care Team Providers Care Helicopter Technician Name Role Phone LOKI MILES MD, MICHA Unavailable Unavailable SAUL URIAS, DILIP Unavailable Unavailable Payers Payer Name Policy Type Policy Number Effective Date Expira tion Date MEDICARE - NGS [place] [id number] Problems Condition Name Condition Details Condition Category [...] OF COVID-19 Active 08-20 00:00: 00 OTHER INTERMEDIATE (CURRENT) DRUG THERAPY Active 08-20 00:00: 00 [...] 2024-08 00:00: 00 06-22 00:00 :00 No [id number] Per instruc tions Per instructio ns (route: oral) Med Classific ation: Anti-Infe ctive Agents pantoprazol e 40 mg tablet,jas yed release 2024-08 00:00: 00 06-22 00:00 :00 No [id number] Per instruc tions Per instructio ns (route: oral) Med Classific ation: Gastroint estinal Therapy Agents pregabalin 75 mg capsule 2024-08 00:00: 00 06-22 00:00 :00 No [id number] Per instruc tions Per instructio ns (route: oral) Med Classific ation: Central Nervous System Agents acetaminoph en 500 mg tablet 2024-08 00:00: 00 06-22 00:00 :00 No [id number] Per instruc tions Per instructio ns (route: oral) Med Classific ation: Analgesic , Anti-infl ammatory or Antipyret ic amlodipine 5 mg tablet 2024-08 00:00: 00 06-22 00:00 :00 No [id number] Per instruc tions Per instructio ns (route: oral) Med Classific ation: Cardiovas cular Therapy Agents docusate sodium 100 mg capsule 2024-08 00:00: 00 06-22 00:00 :00 No [id number] Per instruc tions Per instructio ns (route: oral) Med Classific ation: Gastroint estinal Therapy Agents duloxetine 30 mg capsule,del ayed release 2024-08 00:00: 00 06-22 00:00 :00 No [id number] Per instruc tions Per instructio ns (route: oral) Med Classific ation: Central Nervous System Agents finasteride 5 mg tablet 2024-08 00:00: 00 06-22 00:00 :00 No [id number] Per instruc tions Per instructio ns (route: oral) Med Classific ation: Genitouri nary Therapy magnesium oxide 400 mg (241.3 mg magnesium) tablet 2024-08 00:00: 00 06-22 00:00 :00 No [id number] Per instruc tions Per instructio ns (route: oral) Med Classific ation: Electroly te Balance-N utritiona l Products senna 8.6 mg tablet 2024-08 00:00: 00 06-22 00:00 :00 No [id number] Per instruc tions Per instructio ns (route: oral) Med Classific ation: Gastroint estinal Therapy Agents terazosin 2 mg capsule 2024-08 00:00: 00 06-22 00:00 :00 No [id number] Per instruc tions Per instructio ns (route: oral) Med Classific ation: Cardiovas cular Therapy Agents baclofen 20 mg tablet 2024-08 00:00: 00 06-22 00:00 :00 No [id number] Per instruc tions Per instructio ns (route: oral) Med Classific ation: Locomotor System acetaminoph en 500 mg tablet 2024-08 00:00: 00 Yes [id number] 2 tablet EVERY 8 HOURS 2 tablet EVERY 8 HOURS (route: oral) Med Classific ation: Analgesic , Anti-infl ammatory or Antipyret ic amlodipine 5 mg tablet 2024-08 00:00: 00 08-03 23:59 :00 No [id number] 1 tablet DAILY 1 tablet DAILY (route: oral) Med Classific ation: Cardiovas cular Therapy Agents Artificial Tears (PF) 0.1 %-0.3 % drops in a dropperette 2024-08 00:00: 00 Yes [id number] 2 dropper ette EVERY 2 HOURS 2 dropperett e EVERY 2 HOURS (route: ophthalmic (eye)) Med Classific ation: Ophthalmi c Agents baclofen 20 mg tablet 2024-08 00:00: 00 Yes [id number] 0.5 tablet 3 TIMES DAILY 0.5 tablet 3 TIMES DAILY (route: oral) Med Classific ation: Locomotor System chlorhexidi ne gluconate 0.12 % mouthwash 2024-08 00:00: 00 Yes [id number] 20 mL BEDTIME 20 mL BEDTIME (route: mucous membrane) Med Classific ation: Mouth-Thr oat-Denta l - Preparati ons diclofenac 1 % topical gel 2024-08 00:00: 00 Yes [id number] Per instruc tions NEEDED Per instructio ns NEEDED (route: topical) Med Classific ation: Dermatolo gical docusate sodium 100 mg capsule 2024-08 00:00: 00 Yes [id number] 2 capsule 2 TIMES DAILY 2 capsule 2 TIMES DAILY (route: oral) Med Classific ation: Gastroint estinal Therapy Agents duloxetine 30 mg capsule,del ayed release 2024-08 00:00: 00 Yes [id number] 1 capsule 2 TIMES DAILY 1 capsule 2 TIMES DAILY (route: oral) Med Classific ation: Central Nervous System Agents finasteride 5 mg tablet 2024-08 00:00: 00 Yes [id number] 1 tablet BEDTIME 1 tablet BEDTIME (route: oral) Med Classific ation: Genitouri nary Therapy fluticasone propionate 50 mcg/actuati on nasal spray,suspe nsion 2024-08 00:00: 00 Yes [id number] 2 spray BEDTIME 2 spray BEDTIME (route: nasal) Med Classific ation: Respirato ry Therapy Agents guaifenesin 100 mg/5 mL oral liquid 2024-08 00:00: 00 Yes [id number] 20 mL EVERY 6 HOURS 20 mL EVERY 6 HOURS (route: oral) Med Classific ation: Respirato ry Therapy Agents magnesium oxide 400 mg (241.3 mg magnesium) tablet 2024-08 00:00: 00 Yes [id number] 1 tablet DAILY 1 tablet DAILY (route: oral) Med Classific ation: Electroly te Balance-N utritiona l Products Milk of Magnesia 400 mg/5 mL oral suspension 2024-08 00:00: 00 Yes [id number] 30 mL DAILY 30 mL DAILY (route: oral) Med Classific ation: Gastroint estinal Therapy Agents mirtazapine 15 mg tablet 2024-08 00:00: 00 Yes [id number] 0.5 tablet BEDTIME 0.5 tablet BEDTIME (route: oral) Med Classific ation: Central Nervous System Agents oxycodone 5 mg tablet 2024-08 00:00: 00 Yes [id number] 1 tablet EVERY 8 HOURS 1 tablet EVERY 8 HOURS (route: oral) Med Classific ation: Analgesic , Anti-infl ammatory or Antipyret ic pantoprazol e 40 mg tablet,jas yed release 2024-08 00:00: 00 Yes [id number] 1 tablet 2 TIMES DAILY 1 tablet 2 TIMES DAILY (route: oral) Med Classific ation: Gastroint estinal Therapy Agents pregabalin 75 mg capsule 2024-08 00:00: 00 Yes [id number] 1 capsule 3 TIMES DAILY 1 capsule 3 TIMES DAILY (route: oral) Med Classific ation: Central Nervous System Agents sennosides 8.6 mg tablet 2024-08 00:00: 00 Yes [id number] 1 tablet BEDTIME 1 tablet BEDTIME (route: oral) Med Classific ation: Gastroint estinal Therapy Agents terazosin 2 mg capsule 2024-08 00:00: 00 Yes [id number] 2 capsule BEDTIME 2 capsule BEDTIME (route: oral) Med Classific ation: Cardiovas cular Therapy Agents amlodipine 10 mg tablet 2024-08 00:00: 00 Yes [id number] 1 tablet DAILY 1 tablet DAILY (route: oral) Med Classific ation: Cardiovas cular Therapy Agents Immunizations Ordered Immunization Name Filled Immunization Name Date Status Comments Refusal Reason INFLUENZA, TIV (INACTIVATED) 2025-06-18 00:00:00 Vital Signs Vital Name Observation Time Observation Value Commen ts Temperature 2025-08-03 12:15:00.000 98.8 [degF] Temperature 2025-07-27 16:42:00.000 98.7 [degF] Temperature 2025-07-21 10:47:00.000 98.7 [degF] Temperature 2025-07-13 11:30:00.000 98.2 [degF] Temperature 2025-07-06 11:23:00.000 97.8 [degF] Temperature 2025-06-29 11:34:00.000 97.7 [degF] Temperature 2025-06-22 14:22:00.000 98.1 [degF] Temperature 2025-06-19 12:12:00.000 98.6 [degF] BMI (%) 2025-06-22 14:22:00.000 29 kg/m2 BMI (%) 2025-06-19 12:12:00.000 38 kg/m2 Height 2025-06-22 14:22:00.000 66 [in_us] Height 2025-06-19 12:12:00.000 63 [in_us] Pulse 2025-08-03 12:15:00.000 80 /min Pulse 2025-07-27 16:42:00.000 78 /min Pulse 2025-07-21 10:47:00.000 75 /min Pulse 2025-07-13 11:30:00.000 65 /min Pulse 2025-07-06 11:23:00.000 78 /min Pulse 2025-06-29 11:34:00.000 73 /min Pulse 2025-06-22 14:22:00.000 78 /min Pulse 2025-06-19 12:12:00.000 75 /min O2 Saturation (%) 2025-08-03 12:15:00.000 94 % O2 Saturation (%) 2025-07-27 16:42:00.000 95 % O2 Saturation (%) 2025-07-21 10:47:00.000 93 % O2 Saturation (%) 2025-07-13 11:30:00.000 95 % O2 Saturation (%) 2025-07-06 11:23:00.000 93 % O2 Saturation (%) 2025-06-29 11:34:00.000 92 % O2 Saturation (%) 2025-06-19 12:12:00.000 86 % Respirations 2025-08-03 12:15:00.000 20 /min Respirations 2025-07-27 16:42:00.000 18 /min Respirations 2025-07-21 10:47:00.000 20 /min Respirations 2025-07-13 11:30:00.000 20 /min Respirations 2025-07-06 11:23:00.000 20 /min Respirations 2025-06-29 11:34:00.000 20 /min Respirations 2025-06-22 14:22:00.000 18 /min Respirations 2025-06-19 12:12:00.000 22 /min Weight (lbs) 2025-06-22 14:22:00.000 180 [lb_av] Weight (lbs) 2025-06-19 12:12:00.000 215 [lb_av] Systolic Blood Pressure 2025-08-03 12:15:00.000 162 mm [Hg] Systolic Blood Pressure 2025-07-27 16:42:00.000 152 mm [Hg] Systolic Blood Pressure 2025-07-21 10:47:00.000 150 mm [Hg] Systolic Blood Pressure 2025-07-13 11:30:00.000 156 mm [Hg] Systolic Blood Pressure 2025-07-06 11:23:00.000 140 mm [Hg] Systolic Blood Pressure 2025-06-29 11:34:00.000 154 mm [Hg] Systolic Blood Pressure 2025-06-22 14:22:00.000 124 mm [Hg] Systolic Blood Pressure 2025-06-19 12:12:00.000 130 mm [Hg] Diastolic Blood Pressure 2025-08-03 12:15:00.000 92 mm [Hg] Diastolic Blood Pressure 2025-07-27 16:42:00.000 90 mm [Hg] Diastolic Blood Pressure 2025-07-21 10:47:00.000 [...] MAINTAIN SITUATIONAL AWARENESS AND WILL NOTIFY CLINICAL TELEPHONE CLAIMS REPRESENTATIVE AND PHYSICIAN/PROVIDER WITH ANY CHANGE IN CONDITION. [code = SKILLED NURSE TO PERFORM ENVIRONMENTAL SAFETY RISK ASSESSMENT AND FALL RISK ASSESSMENT AND PROVIDE INSTRUCTION TO IMPLEMENT ENVIRONMENTAL SAFETY AND FALL PREVENTION STRATEGIES THROUGHOUT THE CERTIFICATION PERIOD. SKILLED NURSE WILL MAINTAIN SITUATIONAL AWARENESS AND WILL NOTIFY CLINICAL TELEPHONE CLAIMS REPRESENTATIVE AND PHYSICIAN/PROVIDER WITH ANY CHANGE IN CONDITION.] [...] <paragraph>[Visit Date: 2024 by DILIP HUGHES RN]:</paragraph><paragraph>SNV 08/03</paragraph><paragraph></paragraph><paragraph>ABNORMAL VITALS: 162/92 </paragraph><paragraph></paragraph><paragraph>FALLS: DENIES FALLS</paragraph><paragraph></paragraph><paragraph>ABNORMAL PHYSICAL ASSESSMENT FINDINGS: CONCERN FOR URINARY RETENTION, STAFF STATES HE URINATES VERY SMALL AMOUNTS AND CO PAIN WHICH THEY BELIEVE IS FROM HIS PROSTATE </paragraph><paragraph></paragraph><paragraph>MEDICATION CHANGES: NO MED CHANGES</paragraph><paragraph></paragraph><paragraph>OBSERVATION AND ASSESSMENT PROVIDED: PATIENT A&OX4. CO 3/10 FIBROMYALGIA PAIN, TAKING TYLENOL AND OXY PRN. PATIENT HAS MINOR DYSPHAGIA. LUE CONTRACTED. MINIMAL TO NO MOVEMENT TO RUE. WEAKNESS TO BLLE. EQUAL STRENGTH. PATIENT WC BOUND. LIVES IN [place]. LS CLEAR ON RA. DENIES CP/PALPITATIONS/SOB/DIZZINESS. DENIES NEW NUMBNESS OR TINGLING TO ALL EXTREMITIES. NO OTHER NEURO DEFICITS FROM PATIENTS BASELINE. DENIES URINARY SYMPTOMS. STAFF STATES HE URINATES VERY SMALL AMOUNTS AT A TIME. LBM 08/02. DENIES N/V/D. </paragraph><paragraph></paragraph><paragraph>EDUCATION: EDUCATED ON S/S OF STROKE AND TO SEEK IMMEDIATE MEDICAL ATTENTION. EDUCATED ON PAIN RELIEF TECHNIQUES. EDUCATED ON S/S OF URINARY RETENTION AND IMPORTANCE OF MONITORING AND DOCUMENTING I/O'S , STAFF VERBALIZED UNDERSTANDING. </paragraph><paragraph></paragraph><paragraph>INTERVENTIONS NEEDED AT NEXT VISIT: NEURO ASSESSMENT, PAIN ASSESSMENT </paragraph><paragraph></paragraph><paragraph>MD COMMUNICATION: LEFT MESSAGE WITH CONNIE CLEANER AT PCP OFFICE REGARDING ABNORMAL FINDINGS/VITALS LISTED ABOVE</paragraph><paragraph></paragraph><paragraph>NEXT MD APPOINTMENT: 08/06 GI, 08/18 SURGEON </paragraph><paragraph></paragraph><paragraph>PT AND GH STAFF INSTRUCTED TO CALL LEIGHA JOVEL WITH ANY QUESTIONS OR CONCERNS AND/OR CHANGES IN CONDITION, STATE UNDERSTANDING</paragraph> Encounters Start Date/Time End Date/Time Encounter Type Admission Type Attending [facility] Facility Care Department Encounter ID Discharge Date Discharge Status Discharge Condition Discharge Reason Percent Goals Met 2025-06-22 00:00:00 2025-08-20 00:00:00 Outpatient NEW ADMISSION DILIP HUGHES [facility] [id number] 40.74
== END 2025-08-06 12:06 | disposition home or self-care (01) ==
PROVIDERS: PCP Internal Medicine; Visit Provider Nurse Practitioner Family
DX: D64.9 Anemia, unspecified (principal); K20.90 Esophagitis, unspecified without bleeding; Z01.818 Encounter for other preprocedural examination; Z12.11 Encounter for screening for malignant neoplasm of colon
CPT/HCPCS: 99204

== ENCOUNTER → 2025-08-06 11:06 | Outpatient (BNVA) | payer MEDICARE, MEDICAID, SELFPAY | PROVIDERS: PCP Internal Medicine; Visit Provider Nurse Practitioner Family | DX: K21.00 Gastro-esophageal reflux disease with esophagitis, without bleeding (principal); D64.9 Anemia, unspecified; Z12.11 Encounter for screening for malignant neoplasm of colon; N28.1 Cyst of kidney, acquired; Z87.891 Personal history of nicotine dependence | CPT/HCPCS: 99202 ==